=== PATIENT | male | born 1985 | race Caucasian/White ===

== ENCOUNTER 2019-08-21 11:52 | Emergency (ER) | payer SELFPAY ==
[2019-08-21 11:54] VITALS: BP 156/100; PULSE 110; RESP 17; TEMP 37.1; O2SAT 99; BMI 38.3
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
[2019-08-21 12:07] VITALS: BP 156/100; PULSE 110; RESP 16; O2SAT 99
[2019-08-21] MEDS: Doxycycline 100 MG CAPSULE PO (12:25)
== END 2019-08-21 12:26 | disposition home or self-care (01) ==
LOC: ED 12:15
PROVIDERS: Emergency Provider Emergency Medicine; PCP Family Medicine
DX: L03.211 Cellulitis of face (principal); E11.8 Type 2 diabetes mellitus with unspecified complications; I10 Essential (primary) hypertension; E78.5 Hyperlipidemia, unspecified; K21.9 Gastro-esophageal reflux disease without esophagitis; Z79.4 Long term (current) use of insulin; Z79.899 Other long term (current) drug therapy; E66.01 Morbid (severe) obesity due to excess calories; Z68.41 Body mass index [BMI] 40.0-44.9, adult; Z87.891 Personal history of nicotine dependence
CPT/HCPCS: 99283

== ENCOUNTER 2020-05-25 07:54 | Emergency (ER) | payer SELFPAY ==
[2020-05-25 07:55] VITALS: BP 178/98; PULSE 86; RESP 16; TEMP 36.4; O2SAT 99; BMI 39.3
--- NOTE | 2020-05-25 08:19 | ED.DCSUM_ITS ---
- ER Visit Summary Date of Service: 05/25/20 Chief Complaint: Pain and swelling in the left second toe History of Present Illness: The patient is a 35 M who presents with pain and swelling in his left second toe that has been getting worse over the past 3 days. Patient is diabetic and has a history of neuropathy. Patient states he noted some redness over the second toe as well. Patient denies any fevers or chills. Patient admits to some numbness but states this is chronic due to his neuropathy. Patient states his pain is worse with prolonged standing. Patient denies any fevers or chills. Patient denies any discharge or drainage. Patient states he has been cleaning it and covering it with a Band-Aid and Neosporin ointment. Physical Examination: Vital signs are stable. Patient is afebrile. Patient is in no acute distress. Skin is warm and dry. There is a ulceration over the dorsal aspect of the middle phalanx of the left second toe. There is no discharge or drainage. There is no fluctuance. There is no abscess formation. There is erythema of the toe. There is good range of motion. Capillary refill was less than 2 seconds in all digits. There is good pedal pulse noted. Sensation was diminished to light touch in all digits but this is chronic for the patient. Test Results: X-rays of the left foot were obtained. On my interpretation, there is no evidence of osteomyelitis or acute fracture or dislocation. Radiologist also interpreted the x-ray and agrees. Emergency Department Course and Treatment: Patient was given a dose of Keflex here. Patient was given a prescription for Keflex. Patient was instructed to keep the wound clean and dry. Patient was instructed to continue using antibiotic ointment. Patient was instructed to follow-up with his primary care physician in 3 to 5 days. Patient understood and was agreeable with the plan. All questions were answered. Disposition: Discharge home Impression: Cellulitis left second toe This note was generated with [employer] dictation software. It may contain incorrect words, spelling, and punctuation that were not noted in review of the chart prior to signing ED Disposition - Plan for ED Patient: Disposition: Home or Assisted Living Diagnosis: Cellulitis of second toe of left foot Instructions: ED Cellulitis Prescriptions: Cephalexin [Keflex] 500 mg PO Q6 #40 cap Prescription Printed Referrals: Zully,Kali, DO [Primary Care Provider] - 3-5 Days
--- NOTE | 2020-05-25 08:28 | RAD_ITS ---
STUDY: X-RAY - LEFT FOOT CLINICAL: Male, 35 years old. LEFT 2ND TOE PAIN. OPEN SORE TOP OF 2ND DIGIT WITH REDNESS AND SWELLING, DOES RADIATE INTO FOOT A LITTLE. NO KNOWN INJURY. HX OF DM2 PER PATIENT. TECHNIQUE: 3 view(s) of the foot. COMPARISON: None. FINDINGS: Normal talus, calcaneus, and tarsal bones. Normal visualized subtalar, talonavicular, calcaneocuboid, tarsal and tarsometatarsal articulations. Normal metatarsi. Normal metatarsophalangeal joint of the great toe. Normal tibial and fibular sesamoid bones. Normal interphalangeal joint of the great toe. Normal proximal phalanx of the great toe there is contour irregularity of the distal phalanx of the great toe suggesting either previous healed fracture or inflammation Normal second through fifth metatarsophalangeal joints. Normal interphalangeal joints and phalanges of the lesser toes. The soft tissue structures are unremarkable. RAD/Foot min 3 Views IMPRESSION: No acute fracture or suspicious osseous lesion. No subcutaneous emphysema Subtle irregularity in the distal phalanx of the great toe suggests either previous healed fracture or previous inflammatory process Electronically Signed: Estrada Hagan MD at 8:51 EST , Service support ,
[2020-05-25] MEDS: Cephalexin 250 MG Capsule 500 MG PO (08:43)
[2020-05-25 09:30] VITALS: PULSE 84; RESP 17; O2SAT 98
== END 2020-05-25 09:31 | disposition home or self-care (01) ==
PROVIDERS: Emergency Provider Emergency Medicine; PCP Family Medicine
DX: L03.032 Cellulitis of left toe (principal); E11.40 Type 2 diabetes mellitus with diabetic neuropathy, unspecified; I10 Essential (primary) hypertension; K21.9 Gastro-esophageal reflux disease without esophagitis; F32.9 Major depressive disorder, single episode, unspecified; F17.220 Nicotine dependence, chewing tobacco, uncomplicated
CPT/HCPCS: 73630; 99282

== ENCOUNTER 2020-06-09 11:15 | Emergency (ER) | payer SELFPAY ==
[2020-06-09 11:15] VITALS: BP 196/109; PULSE 93; RESP 16; TEMP 36.2; O2SAT 99; BMI 39.9
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
[2020-06-09] MEDS: Amox/Clavulanate 875 MG Tablet PO (11:54)
== END 2020-06-09 12:15 | disposition home or self-care (01) ==
LOC: ED 12:10
PROVIDERS: Emergency Provider Emergency Medicine; PCP Family Medicine
DX: E11.628 Type 2 diabetes mellitus with other skin complications (principal); L08.9 Local infection of the skin and subcutaneous tissue, unspecified; E11.621 Type 2 diabetes mellitus with foot ulcer; L97.529 Non-pressure chronic ulcer of other part of left foot with unspecified severity; Z79.4 Long term (current) use of insulin; Z87.891 Personal history of nicotine dependence
CPT/HCPCS: 99282

== ENCOUNTER 2020-06-25 10:30 | Outpatient (RCR) | payer SELFPAY ==
[2020-06-11 08:18] VITALS: BP 189/100; PULSE 81; RESP 16; TEMP 36.6; BMI 39.5
[2020-06-11 09:16] VITALS: BP 179/80
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
--- NOTE | 2020-06-18 | BON_PTH ---
PATIENT: GISELA HERNANDEZ Jr. LOC: U#:[id number] AGE/SX: 35/M ROOM: RE06/25/[address]: Dr. Nica Kaur DPM : 1985 BED: DIS: 07/04/2020 SPEC #: [id number] RECD: 06/18/20 13:17 STATUS: TERESA REQ #: [id number] ALON: 06/18/20 00:[address]: Nica Kaur DEPT: SURGICAL PATHOLOGY RECD BY: Cameron Rangel ENTERED: 06/18/20 13:18 SP TYPE: Bone OTHR DR: DO Dr. Alec Marcus MD Tissues: Bone of foot, NOS Procedures: Decalcification bone/plaque Surgery Specimen Level IV HEADER OPERATION: Bone debridement with biopsy PRE-OP DIAGNOSIS: Chronic diabetic ulceration into bone; Bone soft, likely osteomyelitis TISSUE SUBMITTED: Left second phalanx bone proximal and middle MICROSCOPIC DIAGNOSIS Second toe bone, biopsy: Acute osteomyelitis. AM:andrés 06/20/20 MICROSCOPIC DESCRIPTION Slides are reviewed. GROSS DESCRIPTION Received in fixative is one container labeled with the patient's name and designated second toe bone. The specimen consists of two fragments of bone that in aggregate measure 1 x 0.5 x 0.3 cm. The specimen is totally submitted in one cassette after decalcification. / SJ:andrés 06/18/20 TC:2 CPT: 60408, 72101
[2020-06-18 10:08] VITALS: BP 165/105; PULSE 94; RESP 16; TEMP 36.5; BMI 39.5
--- NOTE | 2020-06-19 21:20 | PN.PCM_ITS ---
(1) Ulcer of toe of left foot Status: Acute Qualifiers: Non-pressure ulcer stage: with necrosis of bone Qualified Code(s): L97.524 - Non-pressure chronic ulcer of other part of left foot with necrosis of bone Code(s): L97.529 - Non-pressure chronic ulcer of other part of left foot with unspecified severity (2) DM (diabetes mellitus), type 2 with complications Status: Chronic Code(s): E11.8 - Type 2 diabetes mellitus with unspecified complications (3) Morbid obesity with BMI of 40.0-44.9, adult Status: Chronic Code(s): E66.01 - Morbid (severe) obesity due to excess calories; Z68.41 - Body mass index [BMI]40.0-44.9, adult Comment: He has lost 120 lbs....he used to be over 400 lbs (4) Cellulitis of toe of left foot Status: Acute Code(s): L03.032 - Cellulitis of left toe Type of Wound Date of Service: 06/19/20 Chief Complaint: Left second toe wound. Cellulitis History of Wound: Patient relates previous ulceration to left hallux that required surgery. He currently has ulceration noted to plantar and dorsal left 2nd digit with edema and erythema of the digit of about a month duration. He has been on antibiotics for the wound including keflex and he is currently taking augmentin. Cultrues from last visit showed resistance to Keflex. Patient still taking augmentin. He relates clear to white drainage from the wound requiring twice a day dressing change. He has only been to the ED for this as he is currently without health insurance. Progress of Wound: worsening Subjective: Patient seen and examined. Patient relates the redness on his 2nd toe has gone down, but has noticed that the toe has become floppy this week. Patient denies N/F/V/C/CP/SOB/streaking/purulence - Physical Exam Vital Signs Temp Pulse Resp BP 97.7 F L 94 16 165/105 H 06/18/20 10:08 06/18/20 10:08 06/18/20 10:08 06/18/20 10:08 General: Alert, Oriented x3 HEENT: Atraumatic Extremities: No clubbing, No cyanosis, Capillary Refill Less than 3 Seconds, No Calf Tenderness, Edema, Peripheral Pulses Normal Skin: Ulcer/ Wound - left 2nd toe plantar ulceration has healed. Dorsal left 2nd toe ulcer has worsened with pathologic fracture to the proximal phalanx noted at the level of the neck. There is less fibrotic tissue present today. The extensor tendon has deteriorated. No purulence. Bone noted to be soft. No malodor., - - erythema improved, edema noted to 2nd toe. Surrounding callus noted dorsal and plantar toe. No streaking. Wound Measurements and Assessment WC - Nurse 1 - General Ulcer Measurement Start: 06/11/20 07:52 Freq: Status: Active Protocol: Activity Type Activity Date Activity User E-Sign Co-Sign Detail Recorded Client Recorded Date Recorded By Document 06/18/20 10:08 BMF [id number] 06/18/20 10:15 BMF 06/18/20 10:08 Wound Center Nurse 1 [Ulcer Assessment] #2- BASE OF L 2ND TOE PLANTAR -Combined with other wound No -Current Size (cm) - Length 0.1 -Current Size (cm) - Width 0.1 -Current Size (cm) - Depth 0.1 -Total Square Cm 0.01 -Epithelialization Large 67-100% #1- L 2ND TOE DORSAL -Combined with other wound No -Current Size (cm) - Length 1.1 -Current Size (cm) - Width 1.4 -Current Size (cm) - Depth 0.3 -Total Square Cm 1.54 -Photo Taken No -Epithelialization Small 1-33% -Tunneling No -Undermining/Tunneling Yes -Undermining/Tunneling Starts (O' 12 clock) -Undermining/Tunneling Ends (O'clock) 12 -Maximum Distance (cm) 0.3 -Circular Undermining Yes -Exudate Amt Small -Exudate Type Serosanguineous -Wound Margin Distinct, Outline Attached -Granulation Amt None Present (0 %) -Slough/Fibrin Yes -Necrosis Amt Large (67-100%) -Necrotic Tissue Type Adherent Slough -Texture (Bev-wound Skin Appearance) Assessed, Localized Edema ,Scarring -Moisture (Bev-wound Skin Appearance Assessed, ) Maceration -Color (Bev-wound Skin Appearance) Assessed, Erythema,Palor -Temperature (Bev-wound Skin No Abnormality Appearance) (Pt Warm) -Tenderness on Palpation (Bev-wound No Skin Appearance) -Ulcer Cleansing Rinsed/ Irrigated with Saline -Foul Odor after Cleansing No -Anesthetic Used 5% Lidocaine Gel WC - Nurse 2 - General Ulcer CM Notes Start: 06/11/20 07:52 Freq: Status: Active Protocol: Activity Type Activity Date Activity User E-Sign Co-Sign Detail Recorded Client Recorded Date Recorded By Document 06/18/20 10:36 HELIO [id number] 06/18/20 10:55 HELIO 06/18/20 10:36 Wound Center Nurse 2 [Procedure/Treatment] #2- BASE OF L 2ND TOE PLANTAR -Correct Patient No -Correct Side, Site, Position No -Correct Procedure No -Procedure Performed No -Post Debridement (cm) - Length 0 -Post Debridement (cm) - Width 0 -Post Debridement (cm) - Depth 0 -Total Square (Post) (cm) 0 -Area of Debridement (cm) - Length 0 -Area of Debridement (cm) - Width 0 -Total Square (Area) (cm) 0 -Wound/Ulcer Outcome Healed- Epithelialized #1- L 2ND TOE DORSAL -Correct Patient Yes -Correct Side, Site, Position Yes -Correct Procedure Yes -Procedure Performed Yes -Type of Procedure Debridement -Clinical Debridement Bone -Tissue Removed Tendon -Post Debridement (cm) - Length 0.9 -Post Debridement (cm) - Width 1 -Post Debridement (cm) - Depth 1 -Total Square (Post) (cm) 0.9 -Area of Debridement (cm) - Length 0.9 -Area of Debridement (cm) - Width 1 -Total Square (Area) (cm) 0.9 -Tunneling No -Undermining/Tunneling No -Circular Undermining No -Wound/Ulcer Outcome Not Healed -Ulcer Cleansing Rinsed/ Irrigated with Saline -Foul Odor after Cleansing No -Bioengineered Tissue No -Bleeding Controlled with Pressure -Offloading No -Treatment Response Procedure Tolerated Well -Debridement - Bone, 1st 20sq cm Yes [See Physician Procedure note for Specifics] Pain Scale: 0-10 Numeric [Pain] -Is Patient Pain Free? Yes Musculoskeletal: No Tenderness to Palpation of Joints or Extremities Neurological: - - decrease in light touch sensation Psych/Mental Status: Normal Affect, Appropriate, Alert and oriented to time, place, person, mood and affect Debridement Note Post-Debridement Measurements/Treatment WC - Nurse 2 - General Ulcer CM Notes Start: 06/11/20 07:52 Freq: Status: Active Protocol: Activity Type Activity Date Activity User E-Sign Co-Sign Detail Recorded Client Recorded Date Recorded By Document 06/11/20 08:52 JF [id number] 06/11/20 09:08 Document 06/18/20 10:36 [email or web address] [id number] 06/18/20 10:55 06/11/20 06/18/20 08:52 10:36 Wound Center Nurse 2 #2- BASE OF L 2ND TOE PLANTAR -Time 08:52 -Correct Patient Yes No -Correct Side, Site, Position Yes No -Correct Procedure Yes No -Procedure Performed Yes No -Type of Procedure Debridement -Clinical Debridement Subcutaneous -Tissue Removed Subcutaneous -Post Debridement (cm) - Length 0.2 0 -Post Debridement (cm) - Width 1.4 0 -Post Debridement (cm) - Depth 0.2 0 -Total Square (Post) (cm) 0.28 0 -Area of Debridement (cm) - Length 0.2 0 -Area of Debridement (cm) - Width 1.4 0 -Total Square (Area) (cm) 0.28 0 -Tunneling No -Undermining/Tunneling No -Circular Undermining No -Wound/Ulcer Outcome Not Healed Healed- Epithelialized -Ulcer Cleansing Rinsed/ Irrigated with Saline -Foul Odor after Cleansing No -Bioengineered Tissue No -Bleeding Controlled with Pressure -Offloading No -Debridement - Subq, 1st 20sq cm Yes #1- L 2ND TOE DORSAL -Time 08:54 -Correct Patient Yes Yes -Correct Side, Site, Position Yes Yes -Correct Procedure Yes Yes -Procedure Performed Yes Yes -Type of Procedure Debridement Debridement -Clinical Debridement Muscle / Fascia Bone -Tissue Removed Tendon Tendon -Post Debridement (cm) - Length 0.5 0.9 -Post Debridement (cm) - Width 1 1 -Post Debridement (cm) - Depth 0.5 1 -Total Square (Post) (cm) 0.5 0.9 -Area of Debridement (cm) - Length 0.5 0.9 -Area of Debridement (cm) - Width 1 1 -Total Square (Area) (cm) 0.5 0.9 -Tunneling No No -Undermining/Tunneling No No -Circular Undermining No No -Wound/Ulcer Outcome Not Healed Not Healed -Ulcer Cleansing Rinsed/ Rinsed/ Irrigated with Irrigated with Saline Saline -Foul Odor after Cleansing No No -Bioengineered Tissue No No -Bleeding Controlled with Pressure Pressure -Offloading No No -Treatment Response Procedure Procedure Tolerated Well Tolerated Well -Debridement - Muscle / Fascia, 1st Yes 20sq cm -Debridement - Bone, 1st 20sq cm Yes Pain Scale: 0-10 Numeric Is Patient Pain Free? Yes Yes - Nurse 3 - General Ulcer D/C NN Start: 06/11/20 07:52 Freq: Status: Active Protocol: Activity Type Activity Date Activity User E-Sign Co-Sign Detail Recorded Client Recorded Date Recorded By Document 06/11/20 09:16 [id number] 06/11/20 09:26 DL 06/11/20 09:16 Wound Care Nurse 3 #2- BASE OF L 2ND TOE PLANTAR -Ulcer Cleansing Rinsed/ Irrigated with Saline -Foul Odor after Cleansing No -Other Dressing moist saline -Primary Dressing Covered/Secured with Dry Gauze & Roll Gauze, Secured with Tape #1- L 2ND TOE DORSAL -Ulcer Cleansing Rinsed/ Irrigated with Saline -Foul Odor after Cleansing No -Other Dressing moist saline -Primary Dressing Covered/Secured with Dry Gauze & Roll Gauze, Secured with Tape Treatment Response Procedure Tolerated Well Vital Signs Blood Pressure (90/60-120/80) 179/80 H Blood Pressure Mean (mm Hg) 113 Source Monitor Pain Scale: 0-10 Numeric Is Patient Pain Free? Yes WC - Visit Discharge Discharge Condition Stable Ambulatory Status Ambulatory Transportation Private Auto Notes: Pt to start Dakins when available. Wound debrided: dorsal 2nd toe Laterality: Left Wound Grade/Stage: blank 3 Type of Debridement: Excisional debridement Anesthesia Used: 4% Lidocaine Solution Depth: to bone Percentage of wound debrided: 100 Instrument Used: #15 blade Tissue Removed: sough, fibrotic, devitalized, biofilm tissue and bone Severity: Necrosis of Bone Amount of bleeding with debridement: Mild Bleeding Controlled with: Pressure Patient tolerated procedure well pathologic fracture noted to neck of proximal phalanx of 2nd digit. Head of phalanx was removed and sent to the lab as specimen Assessment/Plan Active Problems (Last Updated 06/18/20 @ 09:[address] Nica Kaur, DPElvira) DM (diabetes mellitus), type 2 with complications (Chronic) Morbid obesity with BMI of 40.0-44.9, adult (Chronic) He has lost 120 lbs....he used to be over 400 lbs Ulcer of toe of left foot (Acute) Cellulitis of toe of left foot (Acute) Assessment: left 2nd digit osteomyelitis. left 2nd digit cellultis. left 2nd digit dorsal ulceration into bone Plan: Patient seen and examined. Patient noted to have left second digit dorsal ulceration which has worsened with deth to bone and a pathologiv bone fracture noted. Plantar left 2nd digt ulceration has healed. Patient cultures from last visit were noted to be polymicrobial with good sensitivity to augmentin. He is still taking the Augmentin. Patient encouraged to continue. The head of the proxmial phalanx was removed at the level of the pathologic neck fracture and was sent to microbiology and pathology as specimen. We will adjust the antibiotics depending on culture results. dorsal ulceration to the left second digit were sharply debrided This was tolerated due to patient neuropathy as well as lidocaine gel application. Removal of all devitalized tissue was performed. Patient tolerated procedure without issue. Discussed with the patient at length that it is very likely that the bone is infected and is likely the reason he fractured his toe. Discussed various treatment options including IV antibiotics, wound care and surgical amputation. All risks, benefits, alternatives, and complications were discussed with the patient. ALl questions were answered. Reneeetn would like to take the week to think on it. Will follow bone cultures. WIll revisit OM treatment options. 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 Patient is currently on a work excuse to allow wound to heal but patient is eager to get back to work. He has work shoes that were given to him by another chuck splitter that her diabetic work boots that are about 2 years old. Patient wishes to wait until his insurance starts to look into getting new shoes. Discussed the importance of offloading the ulcer site to allow healing. Discussed proper shoe gear. Also discussed the importance of proper nutrition for healing and as well as blood glucose control. Patient is currently uninsured and for approximately the next 30 days and is not interested in pursuing other specialist work-up until his insurance kicks in. Nor is he interested in exploring new diabetic work shoes until the insurance is active. Patient's girlfriend is a database software technician. Discussed since he does not have insurance that he might want to talk with her about guidance in his diet to better control his diabetes. He states that he is currently in the 200s most days for his blood glucose. We will revisit these other options once he has insurance. Patient instructed to finish course of Augmentin. Patient is to continue daily dressing changes or more frequently if dressing is saturated with Dakin's wet to dry. Proper application of this dressing was reviewed with the patient in the office. Educated patient on concerning signs and symptoms including nausea fever vomiting chills chest pain shortness of breath and if seen patient is to contact the office or go to the emergency room. Patient is to follow-up in 1 week
[2020-06-25 09:44] VITALS: BP 169/99; PULSE 79; RESP 20; TEMP 36.6; BMI 39.5
--- NOTE | 2020-06-26 12:05 | PN.PCM_ITS ---
(1) Ulcer of toe of left foot Status: Acute Qualifiers: Non-pressure ulcer stage: with necrosis of bone Qualified Code(s): L97.524 - Non-pressure chronic ulcer of other part of left foot with necrosis of bone Code(s): L97.529 - Non-pressure chronic ulcer of other part of left foot with unspecified severity (2) DM (diabetes mellitus), type 2 with complications Status: Chronic Code(s): E11.8 - Type 2 diabetes mellitus with unspecified complications (3) Morbid obesity with BMI of 40.0-44.9, adult Status: Chronic Code(s): E66.01 - Morbid (severe) obesity due to excess calories; Z68.41 - Body mass index [BMI]40.0-44.9, adult Comment: He has lost 120 lbs....he used to be over 400 lbs (4) Cellulitis of toe of left foot Status: Acute Code(s): L03.032 - Cellulitis of left toe Type of Wound Date of Service: 06/25/20 Chief Complaint: Left second toe wound. Cellulitis History of Wound: Patient relates previous ulceration to left hallux that required surgery. He currently has ulceration noted to dorsal left 2nd digit with edema and erythema of the digit of about a month duration. He has healed the plantar 2nd left toe ulcer. He has been on antibiotics for the wound including keflex and augmentin. He is currently taking clindamycin and ciprofloxacin after confirmation of bone infection. Results were called to patient and prescription was sent to patient's pharmacy. Cultrues from 06/11/20 showed resistance to Keflex. A pathologic fracture of the 2nd left toe was noted and fractured fragment including the head of the proximal phalanx was removed and sent to the lab. Bone cultre from 06/18/20 showed citrobacter and actinomyces. He relates decrease in drainage from the wound as well as decrease in swelling and redness. He has only been to the ED for this as he is currently without health insurance. Patient is aware of of treatment options including IV antibiotics, amputation, wound care. As patient is currently without health insurance for another couple of weeks he would like to try an oral antibiotic. Patient is aware of concerning symptoms and if these present to contact clinic or go to ED. He is aware that this may not completely get rid of his infection. Discussed need to get rid of infection for healling to progress. Progress of Wound: stable Subjective: Patient seen and examined. Patient relates less swelling and redness to his toe. He relates no issues in getting his antibiotics. He denies N/F/V/C/CP/SOB/streaking/purulence - Physical Exam Vital Signs Temp Pulse Resp BP 97.9 F 79 20 H 169/99 H 06/25/20 09:44 06/25/20 09:44 06/25/20 09:44 06/25/20 09:44 General: Alert, Oriented x3 HEENT: Atraumatic Abdomen: Obese Extremities: No clubbing, No cyanosis, Capillary Refill Less than 3 Seconds, No Calf Tenderness, Diminished Peripheral Pulses, Edema Skin: Ulcer/ Wound - left 2nd toe dorsal ulcer, no longer probes to bone, less erythema and edema from last visit, fibrotic tissue still present Wound Measurements and Assessment WC - Nurse 1 - General Ulcer Measurement Start: 06/11/20 07:52 Freq: Status: Active Protocol: Activity Type Activity Date Activity User E-Sign Co-Sign Detail Recorded Client Recorded Date Recorded By Document 06/25/20 09:44 DL [id number] 06/25/20 09:50 DL 06/25/20 09:44 Wound Center Nurse 1 [Ulcer Assessment] #1- L 2ND TOE DORSAL -Current Size (cm) - Length 0.7 -Current Size (cm) - Width 1.5 -Current Size (cm) - Depth 0.5 -Total Square Cm 1.05 -Photo Taken No -Undermining/Tunneling Starts (O' 1 clock) -Undermining/Tunneling Ends (O'clock) 5 -Maximum Distance (cm) 0.5 -Exudate Amt Small -Exudate Type Serosanguineous -Wound Margin Distinct, Outline Attached -Granulation Amt Small (1-33%) -Granulation Quality Red -Necrosis Amt Small (1-33%) -Necrotic Tissue Type Adherent Slough -Structure Exposed N/A -Texture (Bev-wound Skin Appearance) Localized Edema ,Scarring -Moisture (Bev-wound Skin Appearance Maceration ) -Color (Bev-wound Skin Appearance) Erythema,Rubor -Temperature (Bev-wound Skin No Abnormality Appearance) (Pt Warm) -Tenderness on Palpation (Bev-wound No Skin Appearance) -Ulcer Cleansing Rinsed/ Irrigated with Saline -Foul Odor after Cleansing No -Anesthetic Used 4% Lidocaine Solution - Nurse 2 - General Ulcer CM Notes Start: 06/11/20 07:52 Freq: Status: Active Protocol: Activity Type Activity Date Activity User E-Sign Co-Sign Detail Recorded Client Recorded Date Recorded By Document 06/25/20 10:13 HELIO [id number] 06/25/20 10:16 HELIO 06/25/20 10:13 Wound Center Nurse 2 [Procedure/Treatment] -Time 10:13 -Correct Patient Yes -Correct Side, Site, Position Yes -Correct Procedure Yes -Procedure Performed Yes -Type of Procedure Debridement -Clinical Debridement Subcutaneous -Tissue Removed Subcutaneous -Post Debridement (cm) - Length 1.5 -Post Debridement (cm) - Width 0.6 -Post Debridement (cm) - Depth 0.6 -Total Square (Post) (cm) 0.90 -Area of Debridement (cm) - Length 1.5 -Area of Debridement (cm) - Width 0.6 -Total Square (Area) (cm) 0.90 -Tunneling No -Undermining/Tunneling No -Circular Undermining No -Wound/Ulcer Outcome Not Healed -Ulcer Cleansing Rinsed/ Irrigated with Saline -Foul Odor after Cleansing No -Bioengineered Tissue No -Bleeding Controlled with Pressure -Offloading No -Treatment Response Procedure Tolerated Well -Debridement - Subq, 1st 20sq cm Yes [See Physician Procedure note for Specifics] Pain Scale: 0-10 Numeric [Pain] -Is Patient Pain Free? Yes - Nurse 3 - General Ulcer D/C NN Start: 06/11/20 07:52 Freq: Status: Active Protocol: Activity Type Activity Date Activity User E-Sign Co-Sign Detail Recorded Client Recorded Date Recorded By Document 06/25/20 10:33 [id number] 06/25/20 10:33 06/25/20 10:33 Wound Care Nurse 3 [Wound Dressing] #1- L 2ND TOE DORSAL -Ulcer Cleansing Rinsed/ Irrigated with Saline -Foul Odor after Cleansing No -Primary Dressing Applied C Hydrogel ($) -Primary Dressing Covered/Secured Dry Gauze, with Secured with Tape Pain Scale: 0-10 Numeric [Pain] -Is Patient Pain Free? Yes - Visit Discharge [Visit Discharge Information] -Discharge Condition Stable -Ambulatory Status Ambulatory -Transportation Private Auto -Medication Reconcilliation completed Yes & provided to patient/care provider -Clinical Summary of Care Provided Yes Musculoskeletal: No Tenderness to Palpation of Joints or Extremities, - - left 2nd digit is slightly dorsiflexed Neurological: - - epicritic sensation loss Psych/Mental Status: Normal Affect, Appropriate, Alert and oriented to time, place, person, mood and affect Debridement Note Post-Debridement Measurements/Treatment WC - Nurse 2 - General Ulcer CM Notes Start: 06/11/20 07:52 Freq: Status: Active Protocol: Activity Type Activity Date Activity User E-Sign Co-Sign Detail Recorded Client Recorded Date Recorded By Document 06/11/20 08:52 [id number] 06/11/20 09:08 Document 06/18/20 10:36 [id number] 06/18/20 10:55 Document 06/25/20 10:13 [id number] 06/25/20 10:16 06/11/20 06/18/20 06/25/20 08:52 10:36 10:13 Wound Center Nurse 2 #2- BASE OF L 2ND TOE PLANTAR -Time 08:52 -Correct Patient Yes No -Correct Side, Site, Position Yes No -Correct Procedure Yes No -Procedure Performed Yes No -Type of Procedure Debridement -Clinical Debridement Subcutaneous -Tissue Removed Subcutaneous -Post Debridement (cm) - Length 0.2 0 -Post Debridement (cm) - Width 1.4 0 -Post Debridement (cm) - Depth 0.2 0 -Total Square (Post) (cm) 0.28 0 -Area of Debridement (cm) - Length 0.2 0 -Area of Debridement (cm) - Width 1.4 0 -Total Square (Area) (cm) 0.28 0 -Tunneling No -Undermining/Tunneling No -Circular Undermining No -Wound/Ulcer Outcome Not Healed Healed- Epithelialized -Ulcer Cleansing Rinsed/ Irrigated with Saline -Foul Odor after Cleansing No -Bioengineered Tissue No -Bleeding Controlled with Pressure -Offloading No -Debridement - Subq, 1st 20sq cm Yes #1- L 2ND TOE DORSAL -Time 08:54 10:13 -Correct Patient Yes Yes Yes -Correct Side, Site, Position Yes Yes Yes -Correct Procedure Yes Yes Yes -Procedure Performed Yes Yes Yes -Type of Procedure Debridement Debridement Debridement -Clinical Debridement Muscle / Fascia Bone Subcutaneous -Tissue Removed Tendon Tendon Subcutaneous -Post Debridement (cm) - Length 0.5 0.9 1.5 -Post Debridement (cm) - Width 1 1 0.6 -Post Debridement (cm) - Depth 0.5 1 0.6 -Total Square (Post) (cm) 0.5 0.9 0.90 -Area of Debridement (cm) - Length 0.5 0.9 1.5 -Area of Debridement (cm) - Width 1 1 0.6 -Total Square (Area) (cm) 0.5 0.9 0.90 -Tunneling No No No -Undermining/Tunneling No No No -Circular Undermining No No No -Wound/Ulcer Outcome Not Healed Not Healed Not Healed -Ulcer Cleansing Rinsed/ Rinsed/ Rinsed/ Irrigated with Irrigated with Irrigated with Saline Saline Saline -Foul Odor after Cleansing No No No -Bioengineered Tissue No No No -Bleeding Controlled with Pressure Pressure Pressure -Offloading No No No -Treatment Response Procedure Procedure Procedure Tolerated Well Tolerated Well Tolerated Well -Debridement - Subq, 1st 20sq cm Yes -Debridement - Muscle / Fascia, 1st Yes 20sq cm -Debridement - Bone, 1st 20sq cm Yes Pain Scale: 0-10 Numeric Is Patient Pain Free? Yes Yes Yes WC - Nurse 3 - General Ulcer D/C NN Start: 06/11/20 07:52 Freq: Status: Active Protocol: Activity Type Activity Date Activity User E-Sign Co-Sign Detail Recorded Client Recorded Date Recorded By Document 06/11/20 09:16 DL [id number] 06/11/20 09:26 DL Document 06/25/20 10:33 [id number] 06/25/20 10:33 06/11/20 06/25/20 09:16 10:33 Wound Care Nurse 3 #2- BASE OF L 2ND TOE PLANTAR -Ulcer Cleansing Rinsed/ Irrigated with Saline -Foul Odor after Cleansing No -Other Dressing moist saline -Primary Dressing Covered/Secured with Dry Gauze & Roll Gauze, Secured with Tape #1- L 2ND TOE DORSAL -Ulcer Cleansing Rinsed/ Rinsed/ Irrigated with Irrigated with Saline Saline -Foul Odor after Cleansing No No -Primary Dressing Applied C Hydrogel ($) -Other Dressing moist saline -Primary Dressing Covered/Secured with Dry Gauze & Dry Gauze, Roll Gauze, Secured with Secured with Tape Tape Treatment Response Procedure Tolerated Well Vital Signs Blood Pressure (90/60-120/80) 179/80 H Blood Pressure Mean (mm Hg) 113 Source Monitor Pain Scale: 0-10 Numeric Is Patient Pain Free? Yes Yes WC - Visit Discharge Discharge Condition Stable Stable Ambulatory Status Ambulatory Ambulatory Transportation Private Auto Private Auto Medication Reconcilliation completed & Yes provided to patient/care provider Clinical Summary of Care Provided Yes Notes: Pt to start Dakins when available. Wound debrided: 2nd toe dorsal Laterality: Left Wound Grade/Stage: blank 3 Type of Debridement: Excisional debridement Anesthesia Used: 4% Lidocaine Solution Depth: in the subcutaneous layer Percentage of wound debrided: 100 Instrument Used: 3mm curette Tissue Removed: slough, devitialized, fibrous tissue Severity: Fat Layer Exposed Amount of bleeding with debridement: Mild Bleeding Controlled with: Pressure Patient tolerated procedure well Assessment/Plan Active Problems (Last Updated 06/18/20 @ 09:[address] Nica Kaur, DP) DM (diabetes mellitus), type 2 with complications (Chronic) Morbid obesity with BMI of 40.0-44.9, adult (Chronic) He has lost 120 lbs....he used to be over 400 lbs Ulcer of toe of left foot (Acute) Cellulitis of toe of left foot (Acute) Assessment: left 2nd digit osteomyelitis. left 2nd digit cellultis, improved. left 2nd digit dorsal ulceration into bone Plan: Patient seen and examined. Patient noted to have left second digit dorsal ulceration which has stablized with depth to fat, erythema and edema, signs of infection improved. Plantar left 2nd digt ulceration has healed. Bone culture from 06/18/20 grew citrobacter and actinomyces. Patient was contacted and it was a decided that a prescription for cipro and clinda were sent to patient's pharmacy. On 06/18/20 the head of the proxmial phalanx was removed at the level of the pathologic neck fracture and was sent to microbiology and pathology as specimen. dorsal ulceration to the left second digit were sharply debrided This was tolerated due to patient neuropathy as well as lidocaine gel application. Patient tolerated procedure without issue. Discussed with the patient at length that the bone is infected and is likely the reason he fractured his toe. Discussed various treatment options including IV antibiotics, wound care and surgical amputation. All risks, benefits, alternatives, and complications were discussed with the patient. All questions were answered. This was also discussed during phone call to review bone culture results. As patient is currently without health insurance for several more weeks we will proceed with oral antibiotics. Patinet is aware that this may not be enough to get rid of the infection. Patient is aware that the goal is to keep wound from worsening. Patient is aware any remaining infection will negatively impact wound healing. Patient understood and agreeed to treatment plan and all questions were answered. 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 Patient is currently on a work excuse to allow wound to heal but patient is eager to get back to work. He has work shoes that were given to him by another flight test shop mechanic that her diabetic work boots that are about 2 years old. Patient wishes to wait until his insurance starts to look into getting new shoes. Discussed the importance of offloading the ulcer site to allow healing. Discussed proper shoe gear. Also discussed the importance of proper nutrition for healing and as well as blood glucose control. Patient is currently uninsured and for approximately the next 25 days and is not interested in pursuing other specialist work-up until his insurance kicks in. Nor is he interested in exploring new diabetic work shoes until the insurance is active. Patient's girlfriend is a science tutor. Discussed since he does not have insurance that he might want to talk with her about guidance in his diet to better control his diabetes. He states that he is currently in the 200s most days for his blood glucose. We will revisit these other options once he has insurance. Patient is to continue daily dressing changes or more frequently if dressing is saturated with Dakin's wet to dry. Proper application of this dressing was reviewed with the patient in the office. Educated patient on concerning signs and symptoms including nausea fever vomiting chills chest pain shortness of breath and if seen patient is to contact the office or go to the emergency room. Patient is to follow-up in 1-2 week
== END 2020-07-04 23:59 ==
LOC: WC 10:30
PROVIDERS: PCP Family Medicine; Referring Provider Emergency Medicine; Visit Provider Podiatrist Foot & Ankle Surgery
DX: E11.621 Type 2 diabetes mellitus with foot ulcer (principal); L97.522 Non-pressure chronic ulcer of other part of left foot with fat layer exposed; L97.524 Non-pressure chronic ulcer of other part of left foot with necrosis of bone; E11.69 Type 2 diabetes mellitus with other specified complication; M86.9 Osteomyelitis, unspecified; M84.475A Pathological fracture, left foot, initial encounter for fracture; L03.032 Cellulitis of left toe; R60.0 Localized edema; E11.40 Type 2 diabetes mellitus with diabetic neuropathy, unspecified; I10 Essential (primary) hypertension; E78.5 Hyperlipidemia, unspecified; K21.9 Gastro-esophageal reflux disease without esophagitis; E66.01 Morbid (severe) obesity due to excess calories; Z68.41 Body mass index [BMI] 40.0-44.9, adult; Z79.4 Long term (current) use of insulin; Z79.899 Other long term (current) drug therapy; Z87.891 Personal history of nicotine dependence
CPT/HCPCS: 11042; 11043; 11044; 87070; 87075; 87077; 87176; 87186; 87205; 88304; 88305; 88311; 99213; G0463

== ENCOUNTER 2020-07-09 10:00 | Outpatient (RCR) | payer SELFPAY ==
[2020-07-05 00:38] VITALS: BP 169/99; PULSE 79; RESP 20; TEMP 36.6
[2020-07-09 09:55] VITALS: BP 164/89; PULSE 84; RESP 20; TEMP 36.6; BMI 39.5
--- NOTE | 2020-07-09 11:05 | PN.PCM_ITS ---
(1) Osteomyelitis of toe of left foot Status: Acute Code(s): M86.9 - Osteomyelitis, unspecified (2) Obese Status: Chronic Code(s): E66.9 - Obesity, unspecified (3) DM (diabetes mellitus), type 2 with complications Status: Chronic Code(s): E11.8 - Type 2 diabetes mellitus with unspecified complications (4) Cellulitis of toe of left foot Status: Resolved Code(s): L03.032 - Cellulitis of left toe Type of Wound Date of Service: 07/09/20 Chief Complaint: Left second toe wound. Cellulitis-resolving. osteomyelitis left 2nd toe History of Wound: Patient relates previous ulceration to left hallux that required surgery. He presents to the wound care center with ulceration noted to dorsal and plantar left 2nd digit with edema and erythema of the digit of about a month duration. He has healed the plantar 2nd left toe ulcer. He has been on antibiotics for the wound including keflex and augmentin. He is currently taking clindamycin and ciprofloxacin after confirmation of bone infection. Results were called to patient and prescription was sent to patient's pharmacy. Cultures from 06/11/20 showed resistance to Keflex. A pathologic fracture of the 2nd left toe was noted and fractured fragment including the head of the proximal phalanx was removed and sent to the lab. Bone cultre from 06/18/20 showed citrobacter and actinomyces. He relates decrease in drainage from the wound as well as decrease in swelling and redness since removal of the infected bone. He has only been to the ED for this as he is currently without health insurance. Patient is aware of of treatment options including IV antibiotics, amputation, wound care. As patient is currently without health insurance for another couple of weeks he would like to try an oral antibiotic. Patient is aware of concerning symptoms and if these present to contact clinic or go to ED. He is aware that this may not completely get rid of his infection. Discussed need to get rid of infection for healling to progress. Patient currently taking clindam ycin and ciprofloxacin for treatment of underlying osteomyelitis. Progress of Wound: Improved with less depth no longer probes to bone decrease in erythema and edema to foot Subjective: Patient seen and examined bedside. Patient denies any new pedal complaints. Patient denies any nausea, fever, and chest pain, shortness of breath, chills, cough, streaking, purulence, vomiting. - Physical Exam Vital Signs Temp Pulse Resp BP 97.8 F 84 20 H 164/89 H 07/09/20 09:55 07/09/20 09:55 07/09/20 09:55 07/09/20 09:55 General: Alert, Oriented x3 HEENT: Atraumatic Abdomen: Obese Extremities: No clubbing, No cyanosis, Capillary Refill Less than 3 Seconds, No Calf Tenderness, Edema, Peripheral Pulses Normal Skin: Ulcer/ Wound - Dorsal second digit left foot. No malodor, erythema, purulence, probing to bone, streaking, or other signs of infection. Skin is atrophic and hairless. Granular base with serosanguineous drainage after debridement. Erythema and edema has resolved from the foot. Mild erythema and edema noted toe Wound Measurements and Assessment WC - Nurse 1 - General Ulcer Measurement Start: 07/09/20 09:53 Freq: Status: Active Protocol: Activity Type Activity Date Activity User E-Sign Co-Sign Detail Recorded Client Recorded Date Recorded By Document 07/09/20 09:55 DL [id number] 07/09/20 10:02 DL 07/09/20 09:55 Wound Center Nurse 1 [Ulcer Assessment] #1- L 2ND TOE DORSAL -Current Size (cm) - Length 0.7 -Current Size (cm) - Width 1 -Current Size (cm) - Depth 0.2 -Total Square Cm 0.7 -Photo Taken No -Exudate Amt Small -Exudate Type Serosanguineous -Wound Margin Distinct, Outline Attached -Granulation Amt Large (67-100%) -Granulation Quality Red -Necrosis Amt None Present (0 %) -Texture (Bev-wound Skin Appearance) Localized Edema ,Scarring -Color (Bev-wound Skin Appearance) Mottled,Rubor -Temperature (Bev-wound Skin No Abnormality Appearance) (Pt Warm) -Tenderness on Palpation (Bev-wound No Skin Appearance) -Foul Odor after Cleansing No -Anesthetic Used 4% Lidocaine Solution - Nurse 2 - General Ulcer CM Notes Start: 07/09/20 09:53 Freq: Status: Active Protocol: Activity Type Activity Date Activity User E-Sign Co-Sign Detail Recorded Client Recorded Date Recorded By Document 07/09/20 10:36 MW [id number] 07/09/20 10:46 MW 07/09/20 10:36 Wound Center Nurse 2 [Procedure/Treatment] -Time 10:36 -Correct Patient Yes -Correct Side, Site, Position Yes -Correct Procedure Yes -Procedure Performed Yes -Type of Procedure Debridement -Clinical Debridement Subcutaneous -Tissue Removed Subcutaneous -Post Debridement (cm) - Length 0.5 -Post Debridement (cm) - Width 1.5 -Post Debridement (cm) - Depth 0.1 -Total Square (Post) (cm) 0.75 -Area of Debridement (cm) - Length 0.5 -Area of Debridement (cm) - Width 1.5 -Total Square (Area) (cm) 0.75 -Tunneling No -Undermining/Tunneling No -Circular Undermining No -Wound/Ulcer Outcome Not Healed -Ulcer Cleansing Rinsed/ Irrigated with Saline -Foul Odor after Cleansing No -Bioengineered Tissue No -Bleeding Controlled with Pressure -Offloading No -Debridement - Subq, 1st 20sq cm Yes [See Physician Procedure note for Specifics] Pain Scale: 0-10 Numeric [Pain] -Is Patient Pain Free? Yes - Nurse 3 - General Ulcer D/C NN Start: 07/09/20 09:53 Freq: Status: Active Protocol: Activity Type Activity Date Activity User E-Sign Co-Sign Detail Recorded Client Recorded Date Recorded By Document 07/09/20 10:49 MW [id number] 07/09/20 10:50 MW 07/09/20 10:49 Wound Care Nurse 3 [Wound Dressing] #1- L 2ND TOE DORSAL -Ulcer Cleansing Rinsed/ Irrigated with Saline -Foul Odor after Cleansing No -Negative Pressure Wound Therapy N/A -Primary Dressing Applied Promogran Francia Matter -Primary Dressing Covered/Secured Dry Gauze with -Other Covering secured with coban -Promogran Francia Matter 1 [Post Procedure Tolerated] -Treatment Response Procedure Tolerated Well Pain Scale: 0-10 Numeric [Pain] -Is Patient Pain Free? Yes Teaching: Wound Center [Wound Center Education] (Items with an * have Printed Materials Available- Please identify what is given to patient under the Teaching materials given to patient and caregiver Section. Dressing Your Wound -Person Taught Patient -Teaching Method Discussion, Demonstration -Response to teaching Verbalize understanding WC - Visit Discharge [Visit Discharge Information] -Discharge Condition Stable -Ambulatory Status Ambulatory -Transportation Private Auto -Accompanied by self -Medication Reconcilliation completed No & provided to patient/care provider -Clinical Summary of Care Provided Yes Musculoskeletal: No Tenderness to Palpation of Joints or Extremities, - - Dorsal deviation of the left second digit noted with lateral translation of hallux. Left second toe is slightly unstable secondary to loss of extensor tendons and head of proximal phalanx secondary to infection Neurological: - - Lack of epicritic sensation consistent with neuropathy Debridement Note Post-Debridement Measurements/Treatment LARISSA - Nurse 2 - General Ulcer CM Notes Start: 07/09/20 09:53 Freq: Status: Active Protocol: Activity Type Activity Date Activity User E-Sign Co-Sign Detail Recorded Client Recorded Date Recorded By Document 07/09/20 10:36 MW [id number] 07/09/20 10:46 MW 07/09/20 10:36 Wound Center Nurse 2 #1- L 2ND TOE DORSAL -Time 10:36 -Correct Patient Yes -Correct Side, Site, Position Yes -Correct Procedure Yes -Procedure Performed Yes -Type of Procedure Debridement -Clinical Debridement Subcutaneous -Tissue Removed Subcutaneous -Post Debridement (cm) - Length 0.5 -Post Debridement (cm) - Width 1.5 -Post Debridement (cm) - Depth 0.1 -Total Square (Post) (cm) 0.75 -Area of Debridement (cm) - Length 0.5 -Area of Debridement (cm) - Width 1.5 -Total Square (Area) (cm) 0.75 -Tunneling No -Undermining/Tunneling No -Circular Undermining No -Wound/Ulcer Outcome Not Healed -Ulcer Cleansing Rinsed/ Irrigated with Saline -Foul Odor after Cleansing No -Bioengineered Tissue No -Bleeding Controlled with Pressure -Offloading No -Debridement - Subq, 1st 20sq cm Yes Pain Scale: 0-10 Numeric Is Patient Pain Free? Yes - Nurse 3 - General Ulcer D/C NN Start: 07/09/20 09:53 Freq: Status: Active Protocol: Activity Type Activity Date Activity User E-Sign Co-Sign Detail Recorded Client Recorded Date Recorded By Document 07/09/20 10:49 MW [id number] 07/09/20 10:50 MW 07/09/20 10:49 Wound Care Nurse 3 #1- L 2ND TOE DORSAL -Ulcer Cleansing Rinsed/ Irrigated with Saline -Foul Odor after Cleansing No -Negative Pressure Wound Therapy N/A -Primary Dressing Applied Promogran Francia Matter -Primary Dressing Covered/Secured with Dry Gauze -Other Covering secured with coban -Promogran Francia Matter 1 Treatment Response Procedure Tolerated Well Pain Scale: 0-10 Numeric Is Patient Pain Free? Yes Teaching: Wound Center Dressing Your Wound -Person Taught Patient -Teaching Method Discussion, Demonstration -Response to teaching Verbalize understanding WC - Visit Discharge Discharge Condition Stable Ambulatory Status Ambulatory Transportation Private Auto Accompanied by self Medication Reconcilliation completed & No provided to patient/care provider Clinical Summary of Care Provided Yes Wound debrided: Dorsal second digit Laterality: Left Wound Grade/Stage: Pride 3 Type of Debridement: Excisional debridement Anesthesia Used: 4% Lidocaine Solution Depth: in the subcutaneous layer Percentage of wound debrided: 100 Instrument Used: 3mm curette Tissue Removed: Tissue removed includes fibrous, devitalized, biofilm, and slough tissue Severity: Fat Layer Exposed Amount of bleeding with debridement: Mild Bleeding Controlled with: Pressure Patient tolerated procedure well Assessment/Plan Assessment: left 2nd digit osteomyelitis. left 2nd digit cellultis, improved. left 2nd digit dorsal ulceration. Diabetes with neuropathy Plan: Patient seen and examined. Patient noted to have left second digit dorsal ulceration which has stablized with depth subcutaneous tissue, erythema and edema, signs of infection improved. Plantar left 2nd digt ulceration has healed. On 06/18/20 the head of the proxmial phalanx was removed at the level of the pathologic neck fracture and was sent to microbiology and pathology as specimen. This was positive for osteomyelitis. Bone culture from 06/18/20 grew citrobacter and actinomyces. Patient was contacted and it was a decided that a prescription for cipro and clinda were sent to patient's pharmacy. A refill was sent today. dorsal ulceration to the left second digit were sharply debrided This was tolerated due to patient neuropathy as well as lidocaine gel application. Patient tolerated procedure without issue. Discussed with the patient at length that the bone is infected and is likely the reason he fractured his toe. Discussed various treatment options including IV antibio tics, wound care and surgical amputation. All risks, benefits, alternatives, and complications were discussed with the patient. All questions were answered. As patient is currently without health insurance for several more weeks we will proceed with oral antibiotics. Patinet is aware that this may not be enough to get rid of the infection. Patient is aware that the goal is to keep wound from worsening. Patient is aware any remaining infection will negatively impact wound healing. Patient understood and agreeed to treatment plan and all questions were answered. Wound is noted to have improved since last visit. With healthy granular base and no longer supposed to bone and tendon. 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 Patient is currently on a work excuse to allow wound to heal but patient is eager to get back to work. Patient relates that the clock to start his health insurance will not begin again until he is working. Patient relates that he has ordered new diabetic work boots to wear at work. Patient instructed how to bandage toe in order to allow the toe to sit in a more natural position so is unlikely to rub against top aspect of shoe. Patient can return to work and see how wound progresses. Discussed the importance of offloading the ulcer site to allow healing. Discussed proper shoe gear. Also discussed the importance of proper nutrition for healing and as well as blood glucose control. Patient is currently uninsured and is not interested in pursuing other specialist work-up until his insurance kicks in. Nor is he interested in exploring new diabetic work shoes until the insurance is active. Patient's girlfriend is a bell cleaner. Discussed since he does not have insurance that he might want to talk with her about guidance in his diet to better control his diabetes. He states that he is currently in the 200s most days for his blood glucose. We will revisit these other options once he has insurance. Patient is to continue daily dressing changes with Francia. Proper application of this dressing was reviewed with the patient in the office. Educated patient on concerning signs and symptoms including nausea fever vomiting chills chest pain shortness of breath and if seen patient is to contact the office or go to the emergency room. Patient is to follow-up in 1-2 week either in the wound care center or in the office depending on patient's work schedule
== END 2020-08-04 23:59 ==
LOC: WC 10:00
PROVIDERS: PCP Family Medicine; Referring Provider Emergency Medicine; Visit Provider Podiatrist Foot & Ankle Surgery
DX: E11.69 Type 2 diabetes mellitus with other specified complication (principal); M86.172 Other acute osteomyelitis, left ankle and foot; E11.621 Type 2 diabetes mellitus with foot ulcer; L97.522 Non-pressure chronic ulcer of other part of left foot with fat layer exposed; E11.40 Type 2 diabetes mellitus with diabetic neuropathy, unspecified; E66.9 Obesity, unspecified; Z79.4 Long term (current) use of insulin
CPT/HCPCS: 11042

== ENCOUNTER 2021-07-23 13:28 | Outpatient (CLI) | payer OTHER, SELFPAY | END 2021-07-23 23:59 | disposition short-term general hospital (02) | LOC: LABSPEC 13:31 | PROVIDERS: PCP Family Medicine; Visit Provider Family Medicine | DX: Z20.828 Contact with and (suspected) exposure to other viral communicable diseases (principal) | CPT/HCPCS: 87635; U0003; U0005 ==

== ENCOUNTER 2021-07-25 17:26 | Outpatient (CLI) | payer OTHER, SELFPAY | END 2021-07-25 23:59 | disposition short-term general hospital (02) | PROVIDERS: PCP Family Medicine; Visit Provider Family Medicine | DX: U07.1 COVID-19 (principal) | CPT/HCPCS: 87635; U0003; U0005 ==

== ENCOUNTER 2021-08-26 08:47 | Outpatient (RCR) | payer OTHER, SELFPAY ==
[2021-08-26 09:07] VITALS: BP 162/95; PULSE 88; RESP 22; TEMP 36.6; BMI 38.2
--- NOTE | 2021-08-26 10:17 | PCM.WC.HP ---
History of Present Illness Date of Service: 08/26/21 Chief Complaint: Left second toe wound Cellulitis-resolving osteomyelitis left 2nd toe Progress of Wound: This 36-year-old male patient was seen in the wound care center for a chronic left great toe ulceration with a history of type 2 diabetes with peripheral neuropathy and osteomyelitis of the same toe. Patient was following up with Dr. Nica Kaur until he stopped coming in. Patient notes that he has been putting off returning to the wound care center and has been working frequently and notes that his daily blood sugars approximately 200+. He denies any fever, chills, nausea, vomiting, chest pain, chest Pain Or Shortness of Breath at This Time. He Denies Any Attempt to Offload the Site at This Time. He notes he has been cleansing the site daily with Dakin's. He notes recent oral antibiotic treatment with Augmentin for his primary care physician. Patient has no other complaints. Past medical history includes type 2 diabetes with peripheral neuropathy and history of osteomyelitis, hyperlipidemia, hypertension, gastroparesis, depression, Chiari malformation, GERD, obesity Past surgical history: Left foot great toe arthroplasty secondary to osteomyelitis. 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 Saurav Rodriguez, DPM) Diabetes mellitus Home Medications amoxicillin-pot clavulanate 875 mg PO Q12H #20 tab 06/09/20 [Rx Last Taken Unknown] insulin NPH and regular human 50 - 70 unit SQ BID 06/11/20 [History Last Taken Unknown] Allergy/AdvReac Type Severity Reaction Status Date / Time No Known Allergies Allergy Verified 06/11/20 08:39 Social History Smoking Status: Former smoker ROS Constitutional Constitutional: Denies systems reviewed and no addt'l complaints, except as documented, as per HPI, anorexia, body ache(s), change in weight, chills, daytime sleepiness, difficulty sleeping, excessive sweating, fatigue, fever(s), frequent falls, headache(s), increased appetite, lethargy, malaise, night sweats, poor appetite, snoring, stops breathing during sleep, weakness, weight gain, weight loss or other Eyes Eyes: Denies systems reviewed and no addt'l complaints, except as documented, as per HPI, none, acute decrease in peripheral vision, blindness, blind spots, bloody eye, blurry vision, burning, change in eye color, change in vision, decreased night vision, diplopia, discharge from eye(s), discongugate gaze, double vision, dry eyes, erythema, excessive blinking, exophthalmos, eye pain, floaters, foreign body, halo effect, irritation, itchy eyes, loss of central vision, loss of peripheral vision, loss of vision, miosis, mydriasis, numbness, nystagmus, other visual disturbances, periorbital itching, photophobia, ptosis, puffy eyes, requires corrective lenses, seeing flashes, spots in vision, sunken eyes, tearing, tunnel vision or other ENT HEENT: Denies systems reviewed and no addt'l complaints, except as documented, as per HPI, none, abnormal hearing, bleeding gums, change in voice, dental pain, disequillibrium, dizziness, dry mouth, dysphagia, ear discharge, ear pain, epistaxis, facial pain, foreign body in nose, halitosis, headache(s), hearing loss, hoarseness, lip swelling, loss taste/smell, mouth lesions, mouth pain, mucositis, nasal congestion, nasal discharge, nasal obstruction, nasal trauma, neck mass, neck pain, nose pain, odynophagia, otalgia, post nasal drip, rhinorrhea, sinus pain, sinus pressure, sore throat, throat swelling, tinnitus, tongue swelling, vertigo or other Cardiovascular Cardiovascular: Denies systems reviewed and no addt'l complaints, except as documented, as per HPI, none, abdominal bloating, abdominal edema, abdominal pain, arrhythmia on telemetry, bluish discoloration of hand/feet, chest pain, chest pain at rest, chest pain with activity, claudication, clubbing, cold extremities, cyanosis, diaphoresis, dizziness, dyspnea, dyspnea at rest, dyspnea on exertion, easily tiring during activity, edema, erythema on extremities, fatigue, flutter in chest, hypertension, irregular heart rhythm, leg edema, leg ulcers, lightheadedness, nausea, numbness in extremities, orthopnea, orthostatic symptoms, pale john skin, palpitations, paroxysmal nocturnal dyspnea, pedal edema, periorbital swelling, pounding heartbeat, racing heartbeat, radiating jaw, neck or arm pain, rapid heart rate, slow heart rate, syncope, tachypnea, vomiting, weakness in extremities, weight gain or other Respiratory/Chest Respiratory/Chest: Denies systems reviewed and no addt'l complaints, except as documented, as per HPI, none, change in mental status, change in phlegm color, chest congestion, chest tightness, cough, difficulty clearing secretions, dry cough, dusky skin, dyspnea, dyspnea on exertion, excessive phlegm production, hemoptysis, hoarseness, inability to speak, mouth breathing, nail bed cyanosis, non-rest sleep EDS, pain on inspiration, pain with cough, pale skin, bev-oral cyanosis, portable oxygen @ home, productive cough, red skin, restlessness, shortness of breath at rest, shortness of breath with exertion, snoring, stridor, tachypnea, wheezing, witnessed apneas, breast mass, breast pain, breast skin changes, breast swelling, change in breast shape, nipple discharge or other Gastrointestinal Gastrointestinal: Denies systems reviewed and no addt'l complaints, except as documented, as per HPI, none, abdominal pain, anorexia, belching, bloating, change in bowel habits, change in stool character, chewing difficulty, coffee ground emesis, constipation, cramping, diarrhea, dry heaves, dyspepsia, dysphagia, early satiety, excessive flatus, fecal incontinence, heartburn, hematemesis, hematochezia, hemorrhoids, loose stools, melena, nausea, odynophagia, rectal bleeding, taste impaired, tenesmus, vomiting, weight changes or other Genitourinary Genitourinary: Denies systems reviewed and no addt'l complaints, except as documented, as per HPI, none, abdominal discomfort, anuria, burning urination, change in libido, change in urinary stream, contractions, difficulty urinating, difficulty with ejaculations, dribbling, dysuria, erectile dysfunction, external genitalia discoloration, movement, flank pain, genital bruising, genital lesions, genital pain, hematospermia, hematuria, itching, low back pain, nocturia, oliguria, painful ejaculations, penile discharge, penile swelling, polyuria, post void dribbling, scrotal pain, scrotal swelling, testicular mass, testicular swelling, undescended testicles, urinary frequency, urinary hesitancy, urinary incontinence, urinary urgency or other Musculoskeletal Musculoskeletal: Denies systems reviewed and no addt'l complaints, except as documented, as per HPI, none, abnormal gait, arthralgias, atrophy, back pain, deformity, difficulty walking, extremity pain, joint pain, joint stiffness, joint swelling, limited range of motion, loss of height, muscle cramps, muscle spasms, muscle weakness, myalgias, neck pain, numbness, radiating pain into limb, stiffness, tingling, tremors or other Integumentary Integumentary: Denies systems reviewed and no addt'l complaints, except as documented, as per HPI, none, acne, alopecia, bleeding lesions, change in hair, change in pigmentation, changing lesions, dry skin, erythema, furuncle, hirsutism, jaundice, lesions, nail changes, new lesions, non-healing lesions, photosensitivity, pruritus, rash, skin pain, skin ulcer, skin swelling, sores, striae, unusual bruising, wounds or other Neurologic Neurologic: Denies systems reviewed and no addt'l complaints, except as documented, as per HPI, none, abnormal gait, abnormal hearing, abnormal movements, abnormal speech, behavior changes, burning sensations, confusion, convulsions, disequilibrium, dizziness, focal weakness, frequent falls, headache(s), lack of coordination, loss of vision, memory loss, numbness, other visual disturbances, paresthesias, radicular pain, restless legs, seizure-like activity, seizures, sensory deficit, syncope, tingling, tremor(s), vertigo, weakness or other Psychiatric Psychiatric: Denies systems reviewed and no addt'l complaints, except as documented, as per HPI, none, abnormal sleep pattern, anhedonia, anxiety, auditory hallucinations, behavioral changes, change in appetite, change in libido, cognitive impairment, confusion, depression, difficulty concentrating, hallucinations, homicidal ideation, hopelessness, irritability, memory loss, mood swings, panic attacks, paranoia, suicidal ideation, suicidal thoughts, tactile hallucinations, visual hallucinations or other Vital Signs Vital Signs Vital Signs: 08/26/21 09:07 Temperature 97.8 F Temperature Source Temporal Pulse Rate 88 Respiratory Rate 22 H Blood Pressure 162/95 H Blood Pressure Mean 117 Blood Pressure Source Monitor Weight Weight: 131.696 kg Body Mass Index (BMI) 38.2 Physical Exam Narrative Patient is alert oriented to person place and time. He ambulates in regular shoe gear without assistance Vascular: Dorsalis pedis posterior tibial pulses palpable 2 out of 4 to bilateral lower extremity. Skin appears to be thin atrophic with diminished hair growth to the lesser digits. Capillary fill time is brisk at this time. Bilateral feet are warm to palpation. Neurologic: Light touch protective sensation diminished bilateral feet Dermatologic: Full-thickness ulceration noted to the plantar left hallux interphalangeal joint wound demonstrates significant hyperkeratosis to the periwound area granular wound base no deep probing. There is focal increase in warmth, edema and periwound erythema. No evidence of pain or purulent drainage at this time. No fluctuance or crepitus noted to palpation of the wound site and periwound areas. Musculoskeletal: There is noted to be diminished hallux interphalangeal joint and first metatarsophalangeal joint range of motion to the left foot likely contributing to the patient's wound formation. No pain with gaseous bilateral lower extremity muscular strength is full to bilateral lower extremity compartments no gross deformity noted at this time. Testes: Negative for testicular swelling or testicular mass Debridement Note Debridement Note Post-Debridement Measurements and Additional Note: Post-Debridement Measurements/Treatment - Nurse 1 - General Ulcer Assessment Start: 08/26/21 09:03 Freq: Status: Active Protocol: .LOWEXT Activity Type Activity Date Activity User E-Sign Co-Sign Detail Recorded Client Recorded Date Recorded By Document 08/26/21 09:07 [id number] 08/26/21 09:20 DL 08/26/21 09:07 - Today's Visit Information Type of service Initial Visit Arrival Mode Ambulatory Transfer Assistance None Patient Identification Verified (Name & Yes ) Patient Requires Transmission-Based No Precautions Finger Stick Blood Sugar(mg/dl) (if didnt check indicated): Blood Sugar Stated by Patient Height and Weight Height 6 ft 1 in Weight 131.696 kg Weight in Pounds 290.3 lbs Body Mass Index (BMI) 38.2 BMI Classification Obese BSA - Ward 2.52 Vital Signs Temperature (97.8 F-99.1 F) 97.8 F Temperature Source Temporal Pulse Rate (60-100) 88 Pulse Location Monitor Respiratory Rate (12-18) 22 H Respiratory rate source Observation Blood Pressure (90/60-120/80) 162/95 H Blood Pressure Mean 117 Source Monitor Pain Scale: 0-10 Numeric Is Patient Pain Free? Yes Communication Assessment Preferred language Khmer Able to Read Yes Able to Write Yes Communication Tools None Right Hearing Abillity Normal Left Hearing Abillity Normal Visual Assistive Devices Glasses Teaching Assessment Preferences Verbal,Written, Demonstration Barriers to Learning None Readiness To Learn Good Willingness to Engage in Self Management Med Activies Readiness to Engage in Self Management Med Activities Anxiety Level Calm Cooperation Cooperative Perception Coherent Interest in Health Problem Asks Questions Education Importance Acknowledges Need Does Patient Smoke tobacco or other No substances Smoking Status Former smoker Is Patient Diabetic Yes Functional Assessment Recent Decline in Ability to Perform Denies Any Declines Culture/Pentecostalism/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 Margarine Churn Operator to contact place of baptism No Teaching: Wound Center *Infection -Person Taught Patient Diagnostic Tests Ordered -Person Taught Patient Dressing Your Wound -Person Taught Patient Foot Care -Person Taught Patient *Welcome to the Wound Center -Person Taught Patient WC - Nurse 1 - General Ulcer Measurement Start: 08/26/21 09:03 Freq: Status: Active Protocol: Activity Type Activity Date Activity User E-Sign Co-Sign Detail Recorded Client Recorded Date Recorded By Document 08/26/21 09:07 MAYURI [id number] 08/26/21 09:20 DL 08/26/21 09:07 Wound Center Nurse 1 #3 L Grt toe base -Current Size (cm) - Length 1.3 -Current Size (cm) - Width 1 -Current Size (cm) - Depth 0.5 -Total Square Cm 1.3 -Photo Taken Yes -Exudate Amt Medium -Exudate Type Serosanguineous -Wound Margin Distinct, Outline Attached -Granulation Amt Medium (34-66%) -Granulation Quality Red -Necrosis Amt Medium (34-66%) -Necrotic Tissue Type Adherent Slough -Structure Exposed N/A -Texture (Bev-wound Skin Appearance) Localized Edema ,Scarring -Moisture (Bev-wound Skin Appearance) Maceration -Color (Bev-wound Skin Appearance) No Abnormality -Temperature (Bev-wound Skin No Abnormality Appearance) (Pt Warm) -Tenderness on Palpation (Bev-wound No Skin Appearance) -Ulcer Cleansing Soap and Water -Foul Odor after Cleansing No -Anesthetic Used 4% Lidocaine Solution WC - Nurse 3 - General Ulcer D/C NN Start: 08/26/21 09:03 Freq: Status: Active Protocol: Activity Type Activity Date Activity User E-Sign Co-Sign Detail Recorded Client Recorded Date Recorded By Document 08/26/21 10:12 MW [id number] 08/26/21 10:13 MW 08/26/21 10:12 Wound Care Nurse 3 -Ulcer Cleansing Rinsed/ Irrigated with Saline -Foul Odor after Cleansing No -Negative Pressure Wound Therapy N/A -Primary Dressing Applied Aquacel AG 4x4 -Other Dressing betadine -Primary Dressing Covered/Secured with Dry Gauze & Roll Gauze, Secured with Tape -Other Covering abd pad -Aquacel AG 4x4 1 Treatment Response Procedure Tolerated Well Pain Scale: 0-10 Numeric Is Patient Pain Free? Yes Teaching: Wound Center Dressing Your Wound -Person Taught Patient -Teaching Method Discussion, Demonstration -Response to teaching Verbalize understanding WC - Visit Discharge Discharge Condition Unstable Ambulatory Status Ambulatory Transportation Private Auto Accompanied by self Medication Reconcilliation completed & No provided to patient/care provider Clinical Summary of Care Provided Yes Assessment/Plan Assessment/Plan (1) Non-pressure chronic ulcer of other part of left foot limited to breakdown of skin: CODE(S): L97.521 - Non-pressure chronic ulcer of other part of left foot limited to breakdown of skin (2) Hallux limitus: CODE(S): M20.5X9 - Other deformities of toe(s) (acquired), unspecified foot QUALIFIERS: Laterality: left Qualified Code(s): M20.5X2 - Other deformities of toe(s) (acquired), left foot (3) Cellulitis: CODE(S): L03.90 - Cellulitis, unspecified QUALIFIERS: Site of cellulitis of extremity: lower extremity Laterality: left (4) Diabetic neuropathy: CODE(S): E11.40 - Type 2 diabetes mellitus with diabetic neuropathy, unspecified PLAN: Patient examined and evaluated, all findings discussed with patient in detail. The left hallux wound appears to be infected clinically, with previous history of bone infection to the site I have concern for residual bone infection at this time. The wound was excisionally debrided of all nonviable tissue down to including level of subcutaneous tissue without incident. Hemostasis obtained with light compression. No anesthetic required due to diabetic neuropathy. Wound site was then flushed with normal sterile saline and cultured. Lab work was ordered to evaluate for systemic signs of infection, nutritional status, diabetes control. This included CBC CMP ESR CRP prealbumin. Radiographs of the left foot were ordered to evaluate for any osseous changes that might suggest chronic or acute bone infection. Due to presence of cellulitis at this time patient was given prescription for p.o. doxycycline 100 mg twice daily for 10 days as well as ciprofloxacin 750 mg twice a day for 10 days. Will monitor culture and sensitivity for any antibiotic changes. Patient has a Cam walking boot at home and will return to this, he will take time off work to ensure resolution of infection and improvement of his wound. Wound today was dressed with silver alginate and Betadine paint to the periwound area along with dry sterile dressing with light compression. He will perform this dressing change daily with wound cleansing using saline. He will follow up in 1 week at which time we will review his radiographs lab work and response to antibiotic therapy. Consideration will be made for any operative procedure that may enhance his ability to clear infection and heal this wound such as hallux interphalangeal joint arthroplasty with antibiotic bead placement versus hallux plus minus first metatarsal amputation. Patient will follow up in 1 week. Greater than 30 minutes was spent with the patient.
[2021-08-26 15:41] LABS: M R Staph aureus DNA By PCR Negative (Negative); Probe Check PASS; Staph aureus DNA By PCR NEGATIVE (Negative)
== END 2021-09-01 23:59 | disposition home or self-care (01) ==
LOC: WC 08:47
PROVIDERS: PCP Family Medicine; Visit Provider Podiatrist
DX: E11.621 Type 2 diabetes mellitus with foot ulcer (principal); L97.522 Non-pressure chronic ulcer of other part of left foot with fat layer exposed; L03.116 Cellulitis of left lower limb; M86.9 Osteomyelitis, unspecified; E11.40 Type 2 diabetes mellitus with diabetic neuropathy, unspecified; Z79.4 Long term (current) use of insulin; Z87.891 Personal history of nicotine dependence; M20.5X2 Other deformities of toe(s) (acquired), left foot
CPT/HCPCS: 11042; 36415; 73630; 80053; 83036; 84134; 85027; 85652; 86140; 87070; 87075; 87077; 87186; 87205; 87640; 99214; G0463

== ENCOUNTER 2021-08-26 11:44 | Outpatient (CLI) | payer OTHER, SELFPAY ==
--- NOTE | 2021-08-26 12:03 | RAD_ITS ---
STUDY: X-RAY - LEFT FOOT CLINICAL: Male, 36 years old. Great toe ulceration. TECHNIQUE: 3 view(s) of the foot. COMPARISON: 05/25/2020. FINDINGS: Normal talus, calcaneus, and tarsal bones. Normal visualized subtalar, talonavicular, calcaneocuboid, tarsal and tarsometatarsal articulations. Normal metatarsi. Mild arthrosis of the MTP and IP joints with hammertoe deformities, unchanged. Stable soft tissue swelling over the first digit with vascular calcification. RAD/Foot min 3 Views IMPRESSION: Stable foot. No bone erosion or soft tissue gas. Electronically Signed: Bhaskar Butler MD at 9:55 EST ,
[2021-08-26 12:20] LABS: Erythrocyte Sedimentation Rate 2 mm/hr (0-20)
[2021-08-26 12:21] LABS: Hematocrit 46.8 % (40-54); Hemoglobin 17.1 g/dL (13.0-16.5); Mean Corp Hgb Conc 36.5 g/dL (32-36); Mean Corpuscular Hgb 29.3 pg (27.0-32.0); Mean Corpuscular Volume 80.1 fL (80-94); Mean Platelet Vol. 9.2 fl (6.2-12.0); Platelet Count 272 K/mm3 (150-450); RBC Distribution Width CV 13.5 % (11.6-14.6); RBC Distribution Width SD 38.5 fl (35.1-43.9); Red Blood Count 5.84 M/mm3 (4.6-6.2); White Blood Count 10.1 K/mm3 (4.4-11.0)
[2021-08-26 13:07] LABS: Hemoglobin A1c 9.8 % (3.8-5.6)
[2021-08-26 13:12] LABS: ALB/GLOB Ratio 0.8 RATIO (0.9-2.4); AST(SGOT) 22 U/L (15-37); Alanine Aminotransfer ALT/SGPT 39 U/L (16-61); Albumin, Serum 3.4 g/dL (3.2-5.0); Alkaline Phosphatase 141 U/L (45-117); Anion Gap 6 (5-15); BUN 18 mg/dL (7-18); BUN/Creat Ratio 19.9 RATIO (10-20); CRP < 2.90 mg/L (0.0-3.0); Chloride 101 mmol/L (98-107); EST Glomerular Filtration Rate 100 mL/min (>60); Est Glom Filt Rate - Afr Amer 121 mL/min (>60); Glucose 335 mg/dL (74-106); Prealbumin 26.7 mg/dL (20.0-40.0); Protein, Total 7.4 g/dL (6.4-8.2); Sodium Level 136 mmol/L (136-145)
== END 2021-08-26 23:59 | disposition home or self-care (01) ==
PROVIDERS: PCP Family Medicine; Referring Provider Podiatrist; Visit Provider Podiatrist
DX: Z00.00 Encounter for general adult medical examination without abnormal findings (principal)
CPT/HCPCS: 36415; 73630; 80053; 83036; 84134; 85027; 85652; 86140

== ENCOUNTER 2021-09-30 09:45 | Outpatient (RCR) | payer OTHER, SELFPAY ==
[2021-09-02 00:43] VITALS: BP 162/95; PULSE 88; RESP 22; TEMP 36.6; BMI 38.2
[2021-09-23 09:48] VITALS: BP 173/95; PULSE 97; RESP 20; TEMP 36.4; BMI 38.2
--- NOTE | 2021-09-23 10:30 | PN.PCM_ITS ---
History of Present Illness Date of Service: 09/23/21 Chief Complaint: Left second toe wound Cellulitis-resolving osteomyelitis left 2nd toe History of Wound: Patient follows up chronic ulceration to the left hallux. Patient denies constitutional symptoms. Patient missed multiple appointments. Patient continue to work and work boots notes continued ulceration to the plantar left hallux. Denies any changes. Patient completed p.o. antibiotics. Patient has no pain to wound site. Recent A1c was 9.8. Patient notes blood glucose this morning was 180. Patient has no other complaints at this time. Patient dressing the site daily with silver alginate and DSD. Objective Data Objective Data Vital Signs: Vital Signs Temp Pulse Resp BP 97.5 F L 97 20 H 173/95 H 09/23/21 09:48 09/23/21 09:48 09/23/21 09:48 09/23/21 09:48 Weight: 131.696 kg Body Mass Index (BMI) 38.2 Physical Exam Narrative Patient alert oriented to person place and time. Vascular: Dorsalis pedis posterior tibial pulses palpable 2 out of 4 to bilateral lower extremity compartments. Digital hair growth noted. Capillary fill time brisk to lesser digits. Mild edema noted to left forefoot. No focal increase in warmth. Neurologic: Light touch protective sensation absent to bilateral feet. Dermatologic: Full-thickness ulceration noted to the plantar aspect of the left hallucal IPJ. Significant periwound hyperkeratosis undermining. Pre and post debridement measurements documented with nursing notes. No signs of infection. Mild periwound edema. No fluctuance crepitus noted to the periwound areas. Musculoskeletal: Hallux rigidus noted to the left big toe. Skin is contributing to wound formation. No pain with calf squeeze. Muscular strength full to bilateral lower extremity compartments. 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 ) Arrival Mode Ambulatory Transfer Assistance None Patient Identification Verified (Name & Yes ) Patient Requires Transmission-Based No Precautions Finger Stick Blood Sugar(mg/dl) (if not checked indicated): Blood Sugar Stated by Patient Height and Weight Body Mass Index (BMI) 38.2 BMI Classification Obese Vital Signs Temperature (97.8 F-99.1 F) 97.5 F L Temperature Source Temporal Pulse Rate (60-100) 97 Pulse Location Monitor Respiratory Rate (12-18) 20 H Respiratory rate source Observation Blood Pressure (90/60-120/80) 173/95 H Blood Pressure Mean (mm Hg) 121 Source Monitor History Since Last Visit- (Skip if this is Patient's initial visit) Have you changed medications since your No last visit? Any new allergies or adverse reactions No Had a fall/change in ADL's that may No increase risk of falls Signs or symptoms of abuse and/or No neglect since last visit Have you been in the hospital since your No last visit? Has dressing in place as prescribed Yes Has compression in place as prescribed N/A Has offloadiing in place as prescribed Yes Experienced any changes in pain level or No management Left Footwear Regular Shoe Right Footwear Regular Shoe Pain Scale: 0-10 Numeric Is Patient Pain Free? Yes WC - Nurse 1 - General Ulcer Measurement Start: 09/23/21 09:48 Freq: Status: Active Protocol: Activity Type Activity Date Activity User E-Sign Co-Sign Detail Recorded Client Recorded Date Recorded By Document 09/23/21 09:48 DL [id number] 09/23/21 09:57 DL 09/23/21 09:48 Wound Center Nurse 1 #3 L Grt toe base -Current Size (cm) - Length 1.1 -Current Size (cm) - Width 0.7 -Current Size (cm) - Depth 0.7 -Total Square Cm 0.77 -Photo Taken No -Exudate Amt Medium -Exudate Type Serosanguineous -Wound Margin Thickened & Rolled Under -Granulation Amt Medium (34-66%) -Granulation Quality Red -Necrosis Amt Large (67-100%) -Necrotic Tissue Type Adherent Slough -Texture (Bev-wound Skin Appearance) Callus -Moisture (Bev-wound Skin Appearance) Maceration -Color (Bev-wound Skin Appearance) No Abnormality -Temperature (Bev-wound Skin No Abnormality Appearance) (Pt Warm) -Tenderness on Palpation (Bev-wound No Skin Appearance) -Ulcer Cleansing Soap and Water -Foul Odor after Cleansing No -Anesthetic Used 4% Lidocaine Solution LARISSA - Nurse 2 - General Ulcer CM Notes Start: 09/23/21 09:48 Freq: Status: Active Protocol: Activity Type Activity Date Activity User E-Sign Co-Sign Detail Recorded Client Recorded Date Recorded By Document 09/23/21 10:05 HELIO [id number] 09/23/21 10:07 HELIO 09/23/21 10:05 Wound Center Nurse 2 -Time 10:05 -Correct Patient Yes -Correct Side, Site, Position Yes -Correct Procedure Yes -Procedure Performed Yes -Type of Procedure Debridement -Clinical Debridement Subcutaneous -Tissue Removed Subcutaneous -Post Debridement (cm) - Length 1.5 -Post Debridement (cm) - Width 1.5 -Post Debridement (cm) - Depth 0.1 -Total Square (Post) (cm) 2.25 -Area of Debridement (cm) - Length 1.5 -Area of Debridement (cm) - Width 1.5 -Total Square (Area) (cm) 2.25 -Tunneling No -Undermining/Tunneling No -Circular Undermining No -Wound/Ulcer Outcome Not Healed -Ulcer Cleansing Rinsed/ Irrigated with Saline -Foul Odor after Cleansing No -Bioengineered Tissue No -Bleeding Controlled with Pressure -Treatment Response Procedure Tolerated Well -Offloading Yes -Type of Offloading Surgical Shoe -Debridement - Subq, 1st 20sq cm Yes Pain Scale: 0-10 Numeric Is Patient Pain Free? Yes - Nurse 3 - General Ulcer D/C NN Start: 09/23/21 09:48 Freq: Status: Active Protocol: Activity Type Activity Date Activity User E-Sign Co-Sign Detail Recorded Client Recorded Date Recorded By Document 09/23/21 10:21 DL [id number] 09/23/21 10:22 DL 09/23/21 10:21 Wound Care Nurse 3 #3 L Grt toe base -Ulcer Cleansing Soap and Water -Foul Odor after Cleansing No -Primary Dressing Applied Aquacel AG 2x2 -Primary Dressing Covered/Secured with Dry Gauze, Secured with Tape -Aquacel AG 2x2 1 Treatment Response Procedure Tolerated Well Pain Scale: 0-10 Numeric Is Patient Pain Free? Yes - Visit Discharge Discharge Condition Stable Ambulatory Status Ambulatory Transportation Private Auto Assessment/Plan Assessment/Plan (1) Non-pressure chronic ulcer of other part of left foot limited to breakdown of skin: CODE(S): L97.521 - Non-pressure chronic ulcer of other part of left foot limited to breakdown of skin PLAN: Patient examined evaluated, all findings cussed with patient in detail. No signs of infection to wound site at this time. Wound unchanged from previous visit. Wound was excisionally debrided down to including level of subcutaneous tissue of all nonviable tissue using a combination of tissue nippers and 5 mm dermal curette. No anesthesia required due to diabetic neuropathy. Hemostasis obtained with light compression. Patient tolerated procedure well. Wound was dressed with silver alginate DSD and compression with Tubigrip. Patient will continue cleansing the wound site daily with soap and water drying the area off dressing with silver alginate dry sterile dressing and Tubigrip dressing. I had detailed discussion with patient regarding improved control of his diabetes, nutritional status, nonweightbearing status in order to achieve wound healing. Patient and I came to and agreed upon plan to pursue a left hallux interphalangeal joint arthroplasty with application of antibiotic beads along with wound debridement. Followed by a period of prolonged immobilization in a total contact cast. This would require a period of short-term disability. We will plan to perform this procedure once is on the schedule and pursue short- term disability so that the patient's wound can heal and prevent recurrence in the future to allow the patient to maintain an ambulatory status so that he can better control his diabetes and continue to work. Patient will continue follow-up weekly to ensure that no infection develops. (2) Diabetic neuropathy: CODE(S): E11.40 - Type 2 diabetes mellitus with diabetic neuropathy, unspecified QUALIFIERS: Diabetes mellitus type: type 2 Diabetes mellitus complication detail: diabetic polyneuropathy Qualified Code(s): E11.42 - Type 2 diabetes mellitus with diabetic polyneuropathy
[2021-09-30 09:35] VITALS: BP 134/74; PULSE 67; TEMP 36.1; BMI 38.2
--- NOTE | 2021-09-30 10:21 | PN.PCM_ITS ---
History of Present Illness Date of Service: 09/30/21 Chief Complaint: Left second toe wound Cellulitis-resolving osteomyelitis left 2nd toe History of Wound: Patient follows up chronic ulceration to the left hallux. Patient denies constitutional symptoms. Patient missed multiple appointments. Patient continue to work and work boots notes continued ulceration to the plantar left hallux. Denies any changes. Patient completed p.o. antibiotics. Patient has no pain to wound site. Recent A1c was 9.8. Patient notes blood glucose this morning was 180. Patient has no other complaints at this time. Patient dressing the site daily with silver alginate and DSD. Objective Data Objective Data Vital Signs: Vital Signs Temp Pulse Resp BP 97.0 F L 67 20 H 134/74 H 09/30/21 09:35 09/30/21 09:35 09/23/21 09:48 09/30/21 09:35 Weight: 131.696 kg Body Mass Index (BMI) 38.2 Physical Exam Narrative Patient alert oriented to person place and time. Vascular: Dorsalis pedis posterior tibial pulses palpable 2 out of 4 to bilateral lower extremity compartments. Digital hair growth noted. Capillary fill time brisk to lesser digits. Mild edema noted to left forefoot. No focal increase in warmth. Neurologic: Light touch protective sensation absent to bilateral feet. Dermatologic: Full-thickness ulceration noted to the plantar aspect of the left hallucal IPJ. Significant periwound hyperkeratosis undermining. Pre and post debridement measurements documented with nursing notes. No signs of infection. Mild periwound edema. No fluctuance crepitus noted to the periwound areas. Musculoskeletal: Hallux rigidus noted to the left big toe. Skin is contributing to wound formation. No pain with calf squeeze. Muscular strength full to bilateral lower extremity compartments. 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 PROFESSOR ) ) Arrival Mode Ambulatory Ambulatory Transfer Assistance None Patient Identification Verified (Name & Yes Yes ) Patient Requires Transmission-Based No Precautions Finger Stick Blood Sugar(mg/dl) (if not checked indicated): Blood Sugar Stated by Patient Height and Weight Body Mass Index (BMI) 38.2 38.2 BMI Classification Obese Obese Vital Signs Temperature (97.8 F-99.1 F) 97.5 F L 97.0 F L Temperature Source Temporal Temporal Pulse Rate (60-100) 97 67 Pulse Location Monitor Monitor Respiratory Rate (12-18) 20 H Respiratory rate source Observation Blood Pressure (90/60-120/80) 173/95 H 134/74 H Blood Pressure Mean (mm Hg) 121 94 Source Monitor Monitor Position Semi-Fowlers Blood Pressure Location Right Arm History Since Last Visit- (Skip if this is Patient's initial visit) Have you changed medications since your No No last visit? Any new allergies or adverse reactions No No Had a fall/change in ADL's that may No increase risk of falls Signs or symptoms of abuse and/or No neglect since last visit Have you been in the hospital since your No No last visit? Has dressing in place as prescribed Yes Yes Has compression in place as prescribed N/A N/A Has offloadiing in place as prescribed Yes N/A Experienced any changes in pain level or No No management Left Footwear Regular Shoe Regular Shoe Right Footwear Regular Shoe Regular Shoe Pain Scale: 0-10 Numeric Is Patient Pain Free? Yes Yes - Nurse 1 - General Ulcer Measurement Start: 09/23/21 09:48 Freq: Status: Active Protocol: Activity Type Activity Date Activity User E-Sign Co-Sign Detail Recorded Client Recorded Date Recorded By Document 09/23/21 09:48 DL [id number] 09/23/21 09:57 DL Document 09/30/21 09:35 CARRIE [id number] 09/30/21 09:37 CARRIE 09/23/21 09/30/21 09:48 09:35 Wound Center Nurse 1 #3 L Grt toe base -Current Size (cm) - Length 1.1 0.5 -Current Size (cm) - Width 0.7 1 -Current Size (cm) - Depth 0.7 0.2 -Total Square Cm 0.77 0.5 -Photo Taken No -Exudate Amt Medium Small -Exudate Type Serosanguineous Serosanguineous -Wound Margin Thickened & Distinct, Rolled Under Outline Attached -Granulation Amt Medium (34-66%) Small (1-33%) -Granulation Quality Red [place] -Necrosis Amt Large (67-100%) None Present (0 %) -Necrotic Tissue Type Adherent Slough -Texture (Bev-wound Skin Appearance) Callus Assessed, Scarring -Moisture (Bev-wound Skin Appearance) Maceration Assessed,Dry/ Scaly -Color (Bev-wound Skin Appearance) No Abnormality No Abnormality, Assessed -Temperature (Bev-wound Skin No Abnormality No Abnormality Appearance) (Pt Warm) (Pt Warm) -Tenderness on Palpation (Bev-wound No No Skin Appearance) -Ulcer Cleansing Soap and Water Rinsed/ Irrigated with Saline -Foul Odor after Cleansing No No -Anesthetic Used 4% Lidocaine 5% Lidocaine Solution Gel WC - Nurse 2 - General Ulcer CM Notes Start: 09/23/21 09:48 Freq: Status: Active Protocol: Activity Type Activity Date Activity User E-Sign Co-Sign Detail Recorded Client Recorded Date Recorded By Document 09/23/21 10:05 [id number] 09/23/21 10:07 Document 09/30/21 10:00 [id number] 09/30/21 10:07 09/23/21 09/30/21 10:05 10:00 Wound Center Nurse 2 #3 L Grt toe base -Time 10:05 10:03 -Correct Patient Yes Yes -Correct Side, Site, Position Yes Yes -Correct Procedure Yes Yes -Procedure Performed Yes Yes -Type of Procedure Debridement Debridement -Clinical Debridement Subcutaneous Subcutaneous -Tissue Removed Subcutaneous Subcutaneous -Post Debridement (cm) - Length 1.5 1.2 -Post Debridement (cm) - Width 1.5 1.0 -Post Debridement (cm) - Depth 0.1 0.2 -Total Square (Post) (cm) 2.25 1.20 -Area of Debridement (cm) - Length 1.5 1.2 -Area of Debridement (cm) - Width 1.5 1.0 -Total Square (Area) (cm) 2.25 1.20 -Tunneling No No -Undermining/Tunneling No No -Circular Undermining No No -Wound/Ulcer Outcome Not Healed Not Healed -Ulcer Cleansing Rinsed/ Rinsed/ Irrigated with Irrigated with Saline Saline -Foul Odor after Cleansing No No -Bioengineered Tissue No No -Bleeding Controlled with Pressure Pressure -Treatment Response Procedure Procedure Tolerated Well Tolerated Well -Offloading Yes Yes -Type of Offloading Surgical Shoe Surgical Shoe -Debridement - Subq, 1st 20sq cm Yes Yes Pain Scale: 0-10 Numeric Is Patient Pain Free? Yes Yes - Nurse 3 - General Ulcer D/C NN Start: 09/23/21 09:48 Freq: Status: Active Protocol: Activity Type Activity Date Activity User E-Sign Co-Sign Detail Recorded Client Recorded Date Recorded By Document 09/23/21 10:21 DL [id number] 09/23/21 10:22 DL 09/23/21 10:21 Wound Care Nurse 3 #3 L Grt toe base -Ulcer Cleansing Soap and Water -Foul Odor after Cleansing No -Primary Dressing Applied Aquacel AG 2x2 -Primary Dressing Covered/Secured with Dry Gauze, Secured with Tape -Aquacel AG 2x2 1 Treatment Response Procedure Tolerated Well Pain Scale: 0-10 Numeric Is Patient Pain Free? Yes - Visit Discharge Discharge Condition Stable Ambulatory Status Ambulatory Transportation Private Auto Assessment/Plan Assessment/Plan (1) Non-pressure chronic ulcer of other part of left foot limited to breakdown of skin: CODE(S): L97.521 - Non-pressure chronic ulcer of other part of left foot limited to breakdown of skin PLAN: Patient examined evaluated, all findings cussed with patient in detail. No signs of infection to wound site at this time. Wound improved from previous visit. Wound was excisionally debrided down to including level of subcutaneous tissue of all nonviable tissue using a combination of tissue nippers and 5 mm dermal curette. No anesthesia required due to diabetic neuropathy. Hemostasis obtained with light compression. Patient tolerated procedure well. Wound was dressed with silver alginate DSD and compression with Tubigrip. Patient will continue cleansing the wound site daily with soap and water drying the area off dressing with silver alginate dry sterile dressing and Tubigrip dressing. I had detailed discussion with patient regarding improved control of his diabetes, nutritional status, nonweightbearing status in order to achieve wound healing. Patient notes significant improvement with this regard. Patient wishes to delay elective surgery and pursue conservative treatment of his ulceration. The aforementioned procedure would include a hallux interphalangeal joint arthroplasty with application of antibiotic beads. We will plan for application of epifix will total contact cast on his follow-up visit. Patient will continue improved blood sugar control as he notes his blood sugar today it was 136. Patient appears motivated to improve his overall health status and will keep his wound offloaded in a Cam walking boot which she already has at home. He will follow up in 1 week. (2) Diabetic neuropathy: CODE(S): E11.40 - Type 2 diabetes mellitus with diabetic neuropathy, unspecified QUALIFIERS: Diabetes mellitus type: type 2 Diabetes mellitus complication detail: diabetic polyneuropathy Qualified Code(s): E11.42 - Type 2 diabetes mellitus with diabetic polyneuropathy
== END 2021-10-02 23:59 | disposition home or self-care (01) ==
LOC: WC 09:45
PROVIDERS: PCP Family Medicine; Visit Provider Podiatrist
DX: E11.621 Type 2 diabetes mellitus with foot ulcer (principal); L97.521 Non-pressure chronic ulcer of other part of left foot limited to breakdown of skin; M20.22 Hallux rigidus, left foot; E11.40 Type 2 diabetes mellitus with diabetic neuropathy, unspecified; E66.9 Obesity, unspecified; Z68.38 Body mass index [BMI] 38.0-38.9, adult; Z79.4 Long term (current) use of insulin
CPT/HCPCS: 11042

== ENCOUNTER 2021-10-28 08:45 | Outpatient (RCR) | payer OTHER, SELFPAY ==
[2021-10-03 00:42] VITALS: BP 134/74; PULSE 67; RESP 20; TEMP 36.1; BMI 38.2
[2021-10-07 09:38] VITALS: TEMP 36.2; BMI 38.2
--- NOTE | 2021-10-07 09:52 | PN.PCM_ITS ---
History of Present Illness Date of Service: 10/07/21 Chief Complaint: Left second toe wound Cellulitis-resolving osteomyelitis left 2nd toe History of Wound: Patient follows up chronic ulceration to the left hallux. Patient denies constitutional symptoms. Patient is now motivated to progress in the wound healing process. He has improved his diet. He has improved his ability to immobilize his foot on the left side. Patient is taking. Off from work in order to get this wound healed.. Denies any changes. Patient completed p.o. antibiotics. Patient has no pain to wound site. Recent A1c was 9.8. Patient has no other complaints at this time. Patient dressing the site daily with silver alginate and DSD, attempting to offload with a Cam walking boot. Objective Data Objective Data Vital Signs: Vital Signs Temp Pulse Resp BP 97.2 F L 67 20 H 134/74 H 10/07/21 09:38 10/03/21 00:42 10/03/21 00:42 10/03/21 00:42 Weight: 131.696 kg Body Mass Index (BMI) 38.2 Physical Exam Narrative Patient alert oriented to person place and time. Vascular: Dorsalis pedis posterior tibial pulses palpable 2 out of 4 to bilateral lower extremity compartments. Digital hair growth noted. Capillary fill time brisk to lesser digits. Mild edema noted to left forefoot. No focal increase in warmth. Neurologic: Light touch protective sensation absent to bilateral feet. Dermatologic: Full-thickness ulceration noted to the plantar aspect of the left hallucal IPJ. Significant periwound hyperkeratosis undermining. Pre and post debridement measurements documented with nursing notes. No signs of infection. Mild periwound edema. No fluctuance crepitus noted to the periwound areas. Musculoskeletal: Hallux rigidus noted to the left big toe. Skin is contributing to wound formation. No pain with calf squeeze. Muscular strength full to bilateral lower extremity compartments. Debridement Note Debridement Note Post-Debridement Measurements and Additional Note: Post-Debridement Measurements/Treatment WC - Nurse 1 - General Ulcer Assessment Start: 10/07/21 09:38 Freq: Status: Active Protocol: LARISSA.LOWEXT Activity Type Activity Date Activity User E-Sign Co-Sign Detail Recorded Client Recorded Date Recorded By Document 10/07/21 09:38 CARRIE [id number] 10/07/21 09:39 CARRIE 10/07/21 09:38 - Today's Visit Information Type of service Follow-up Visit (Physician/DIALYSIS NURSE ) Arrival Mode Ambulatory Patient Identification Verified (Name & Yes ) Finger Stick Blood Sugar(mg/dl) (if 180 indicated): Blood Sugar Stated by Patient Height and Weight Body Mass Index (BMI) 38.2 BMI Classification Obese Vital Signs Temperature (97.8 F-99.1 F) 97.2 F L Temperature Source Temporal History Since Last Visit- (Skip if this is Patient's initial visit) Have you changed medications since your No last visit? Any new allergies or adverse reactions No Had a fall/change in ADL's that may No increase risk of falls Signs or symptoms of abuse and/or No neglect since last visit Have you been in the hospital since your No last visit? Has dressing in place as prescribed Yes Has compression in place as prescribed Yes Has offloadiing in place as prescribed N/A Experienced any changes in pain level or No management Left Footwear Regular Shoe Right Footwear Regular Shoe Pain Scale: 0-10 Numeric Is Patient Pain Free? Yes - Nurse 1 - General Ulcer Measurement Start: 10/07/21 09:38 Freq: Status: Active Protocol: Activity Type Activity Date Activity User E-Sign Co-Sign Detail Recorded Client Recorded Date Recorded By Document 10/07/21 09:38 [id number] 10/07/21 09:39 CARRIE 10/07/21 09:38 Wound Center Nurse 1 #3 L Grt toe base -Current Size (cm) - Length 0.7 -Current Size (cm) - Width 1 -Current Size (cm) - Depth 0.2 -Total Square Cm 0.7 -Exudate Amt Small -Exudate Type Serosanguineous -Wound Margin Distinct, Outline Attached -Granulation Amt Small (1-33%) -Granulation Quality Red -Necrosis Amt Small (1-33%) -Necrotic Tissue Type Adherent Slough -Texture (Bev-wound Skin Appearance) Assessed, Scarring -Moisture (Bev-wound Skin Appearance) No Abnormality, Assessed -Color (Bev-wound Skin Appearance) No Abnormality, Assessed -Temperature (Bev-wound Skin No Abnormality Appearance) (Pt Warm) -Tenderness on Palpation (Bev-wound No Skin Appearance) -Ulcer Cleansing Rinsed/ Irrigated with Saline -Foul Odor after Cleansing No -Anesthetic Used 4% Lidocaine Solution WC - Nurse 2 - General Ulcer CM Notes Start: 10/07/21 09:38 Freq: Status: Active Protocol: Activity Type Activity Date Activity User E-Sign Co-Sign Detail Recorded Client Recorded Date Recorded By Document 10/07/21 09:44 HELIO [id number] 10/07/21 09:51 HELIO 10/07/21 09:44 Wound Center Nurse 2 -Time 09:44 -Correct Patient Yes -Correct Side, Site, Position Yes -Correct Procedure Yes -Procedure Performed Yes -Type of Procedure Debridement -Clinical Debridement Subcutaneous -Tissue Removed Subcutaneous -Post Debridement (cm) - Length 1.0 -Post Debridement (cm) - Width 0.9 -Post Debridement (cm) - Depth 0.2 -Total Square (Post) (cm) 0.90 -Area of Debridement (cm) - Length 1.0 -Area of Debridement (cm) - Width 0.9 -Total Square (Area) (cm) 0.90 -Tunneling No -Undermining/Tunneling No -Circular Undermining No -Wound/Ulcer Outcome Not Healed -Ulcer Cleansing Rinsed/ Irrigated with Saline -Foul Odor after Cleansing No -Bioengineered Tissue No -Bleeding Controlled with Pressure -Treatment Response Procedure Tolerated Well -Offloading Yes -Type of Offloading Total Contact Cast (TCC) - Left ($) -Debridement - Subq, 1st 20sq cm Yes Pain Scale: 0-10 Numeric Is Patient Pain Free? Yes Assessment/Plan Assessment/Plan (1) Non-pressure chronic ulcer of other part of left foot limited to breakdown of skin: CODE(S): L97.521 - Non-pressure chronic ulcer of other part of left foot limited to breakdown of skin PLAN: Patient examined evaluated, all findings cussed with patient in detail. No signs of infection to wound site at this time. Wound improved from previous visit. Wound was excisionally debrided down to including level of subcutaneous tissue of all nonviable tissue using a combination of tissue nippers and 5 mm dermal curette. No anesthesia required due to diabetic neuropathy. Hemostasis obtained with light compression. Patient tolerated procedure well. Wound was dressed with silver alginate DSD and compression with Tubigrip. Total contact cast applied to left lower extremity. Cast boot dispensed patient can ambulate as tolerated in this apparatus. Patient will follow up in 1 week for reapplication and redebridement of his left hallux ulceration. He has made significant improvement since his previous visit. (2) Diabetic neuropathy: CODE(S): E11.40 - Type 2 diabetes mellitus with diabetic neuropathy, unspecified QUALIFIERS: Diabetes mellitus type: type 2 Diabetes mellitus complication detail: diabetic polyneuropathy Qualified Code(s): E11.42 - Type 2 diabetes mellitus with diabetic polyneuropathy
[2021-10-16 09:55] VITALS: BP 179/98; PULSE 98; RESP 20; TEMP 36.4; BMI 38.2
--- NOTE | 2021-10-16 10:30 | PCM.WC.PN ---
History of Present Illness Date of Service: 10/16/21 Chief Complaint: Left second toe wound Cellulitis-resolving osteomyelitis left 2nd toe History of Wound: Patient follows up chronic ulceration to the left hallux. Patient denies constitutional symptoms. Patient is now motivated to progress in the wound healing process. He has improved his diet. He has improved his ability to immobilize his foot on the left side. Patient is taking. Off from work in order to get this wound healed.. Denies any changes. Patient completed p.o. antibiotics. Patient has no pain to wound site. Recent A1c was 9.8. Patient has no other complaints at this time. Patient dressing the site daily with silver alginate and DSD, attempting to offload with a Cam walking boot. Objective Data Objective Data Vital Signs: Vital Signs Temp Pulse Resp BP 97.6 F L 98 20 H 179/98 H 10/16/21 09:55 10/16/21 09:55 10/16/21 09:55 10/16/21 09:55 Weight: 131.696 kg Body Mass Index (BMI) 38.2 Physical Exam Narrative Patient alert oriented to person place and time. Vascular: Dorsalis pedis posterior tibial pulses palpable 2 out of 4 to bilateral lower extremity compartments. Digital hair growth noted. Capillary fill time brisk to lesser digits. Mild edema noted to left forefoot. No focal increase in warmth. Neurologic: Light touch protective sensation absent to bilateral feet. Dermatologic: Full-thickness ulceration noted to the plantar aspect of the left hallucal IPJ. Significant periwound hyperkeratosis undermining. Pre and post debridement measurements documented with nursing notes. No signs of infection. Mild periwound edema. No fluctuance crepitus noted to the periwound areas. Musculoskeletal: Hallux rigidus noted to the left big toe. Skin is contributing to wound formation. No pain with calf squeeze. Muscular strength full to bilateral lower extremity compartments. 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 (Physician/SMOKE JUMPER SUPERVISOR ) ) Arrival Mode Ambulatory Ambulatory Transfer Assistance None Patient Identification Verified (Name & Yes Yes ) Patient Requires Transmission-Based No Precautions Finger Stick Blood Sugar(mg/dl) (if 180 not checked indicated): Blood Sugar Stated by Stated by Patient Patient Height and Weight Body Mass Index (BMI) 38.2 38.2 BMI Classification Obese Obese Vital Signs Temperature (97.8 F-99.1 F) 97.2 F L 97.6 F L Temperature Source Temporal Temporal Pulse Rate (60-100) 98 Pulse Location Monitor Respiratory Rate (12-18) 20 H Respiratory rate source Observation Blood Pressure (90/60-120/80) 179/98 H Blood Pressure Mean (mm Hg) 125 Source Monitor History Since Last Visit- (Skip if this is Patient's initial visit) Have you changed medications since your No No last visit? Any new allergies or adverse reactions No No Had a fall/change in ADL's that may No No increase risk of falls Signs or symptoms of abuse and/or No No neglect since last visit Have you been in the hospital since your No No last visit? Has dressing in place as prescribed Yes Yes Has compression in place as prescribed Yes N/A Has offloadiing in place as prescribed N/A Yes Experienced any changes in pain level or No No management Left Footwear Regular Shoe Total Contact Cast Right Footwear Regular Shoe Pain Scale: 0-10 Numeric Is Patient Pain Free? Yes Yes - Nurse 1 - General Ulcer Measurement Start: 10/07/21 09:38 Freq: Status: Active Protocol: Activity Type Activity Date Activity User E-Sign Co-Sign Detail Recorded Client Recorded Date Recorded By Document 10/07/21 09:38 KR [id number] 10/07/21 09:39 KR Document 10/16/21 09:55 DL [id number] 10/16/21 10:04 DL 10/07/21 10/16/21 09:38 09:55 Wound Center Nurse 1 #3 L Grt toe base -Current Size (cm) - Length 0.7 0.6 -Current Size (cm) - Width 1 0.7 -Current Size (cm) - Depth 0.2 0.1 -Total Square Cm 0.7 0.42 -Photo Taken No -Exudate Amt Small Small -Exudate Type Serosanguineous Serosanguineous -Wound Margin Distinct, Distinct, Outline Outline Attached Attached -Granulation Amt Small (1-33%) Large (67-100%) -Granulation Quality Red Red -Necrosis Amt Small (1-33%) None Present (0 %) -Necrotic Tissue Type Adherent Slough -Structure Exposed N/A -Texture (Bev-wound Skin Appearance) Assessed, Callus Scarring -Moisture (Bev-wound Skin Appearance) No Abnormality, Maceration Assessed -Color (Bev-wound Skin Appearance) No Abnormality, No Abnormality Assessed -Temperature (Bev-wound Skin No Abnormality No Abnormality Appearance) (Pt Warm) (Pt Warm) -Tenderness on Palpation (Bev-wound No No Skin Appearance) -Ulcer Cleansing Rinsed/ Soap and Water Irrigated with Saline -Foul Odor after Cleansing No No -Anesthetic Used 4% Lidocaine 5% Lidocaine Solution Gel WC - Nurse 2 - General Ulcer CM Notes Start: 10/07/21 09:38 Freq: Status: Active Protocol: Activity Type Activity Date Activity User E-Sign Co-Sign Detail Recorded Client Recorded Date Recorded By Document 10/07/21 09:44 [id number] 10/07/21 09:51 Document 10/16/21 10:21 MW [id number] 10/16/21 10:24 MW 10/07/21 10/16/21 09:44 10:21 Wound Center Nurse 2 #3 L Grt toe base -Time 09:44 10:22 -Correct Patient Yes Yes -Correct Side, Site, Position Yes Yes -Correct Procedure Yes Yes -Procedure Performed Yes Yes -Type of Procedure Debridement Debridement -Clinical Debridement Subcutaneous Subcutaneous -Tissue Removed Subcutaneous Subcutaneous -Post Debridement (cm) - Length 1.0 0.6 -Post Debridement (cm) - Width 0.9 0.7 -Post Debridement (cm) - Depth 0.2 0.3 -Total Square (Post) (cm) 0.90 0.42 -Area of Debridement (cm) - Length 1.0 0.6 -Area of Debridement (cm) - Width 0.9 0.7 -Total Square (Area) (cm) 0.90 0.42 -Tunneling No No -Undermining/Tunneling No No -Circular Undermining No No -Wound/Ulcer Outcome Not Healed Not Healed -Ulcer Cleansing Rinsed/ Rinsed/ Irrigated with Irrigated with Saline Saline -Foul Odor after Cleansing No No -Bioengineered Tissue No No -Bleeding Controlled with Pressure Pressure -Treatment Response Procedure Procedure Tolerated Well Tolerated Well -Offloading Yes No -Type of Offloading Total Contact Total Contact Cast (TCC) - Cast (TCC) - Left ($) Left ($) -Debridement - Subq, 1st 20sq cm Yes Yes Pain Scale: 0-10 Numeric Is Patient Pain Free? 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 Yes - Visit Discharge Discharge Condition Stable Ambulatory Status Ambulatory Transportation Private Auto Assessment/Plan Assessment/Plan (1) Non-pressure chronic ulcer of other part of left foot limited to breakdown of skin: CODE(S): L97.521 - Non-pressure chronic ulcer of other part of left foot limited to breakdown of skin PLAN: Patient examined evaluated, all findings cussed with patient in detail. No signs of infection to wound site at this time. Wound significantly improved with use of total contact cast and better dietary control. Wound was excisionally debrided down to including level of subcutaneous tissue of all nonviable tissue using a combination of tissue nippers and 5 mm dermal curette. No anesthesia required due to diabetic neuropathy. Hemostasis obtained with light compression. Patient tolerated procedure well. Wound was dressed with silver alginate DSD and compression with Tubigrip. Total contact cast applied to left lower extremity. Cast boot dispensed patient can ambulate as tolerated in this apparatus. Patient will follow up in 1 week for reapplication and redebridement of his left hallux ulceration. He has made significant improvement since his previous visit. Patient has made significant improvement since his previous visit and demonstrate significant motivation to improve. He notes his blood sugar on a daily basis been around 1 20-1 70, he has taken this some time off work and has been offloading with a total contact cast. These 3 things have led to the patient significantly improving his wound size by approximately 50% reduction since his previous visit. (2) Diabetic neuropathy: CODE(S): E11.40 - Type 2 diabetes mellitus with diabetic neuropathy, unspecified QUALIFIERS: Diabetes mellitus type: type 2 Diabetes mellitus complication detail: diabetic polyneuropathy Qualified Code(s): E11.42 - Type 2 diabetes mellitus with diabetic polyneuropathy
[2021-10-21 09:43] VITALS: BP 176/93; PULSE 100; RESP 16; TEMP 35.9; BMI 38.2
--- NOTE | 2021-10-21 10:31 | PCM.WC.PN ---
History of Present Illness Date of Service: 10/21/21 Chief Complaint: Left second toe wound Cellulitis-resolving osteomyelitis left 2nd toe Progress of Wound: This 36-year-old male presents for follow-up on left hallux ulceration he had a total contact cast since previous visit. Patient notes that he got the site wet. Patient denies any constitutional symptoms or pain to the wound site. Patient otherwise been compliant with treatment he was unaware that he got his dressing wet. He has been limiting his ambulation to transfer in his house and been improving his nutritional intake of vegetables. He has no other complaints at this time. Objective Data Objective Data Vital Signs: Vital Signs Temp Pulse Resp BP 96.7 F L 100 16 176/93 H 10/21/21 09:43 10/21/21 09:43 10/21/21 09:43 10/21/21 09:43 Oxygen Delivery Method Room Air Weight: 131.696 kg Body Mass Index (BMI) 38.2 Physical Exam Narrative Patient alert oriented to person place and time. Vascular: Dorsalis pedis posterior tibial pulses palpable 2 out of 4 to bilateral lower extremity compartments. Digital hair growth noted. Capillary fill time brisk to lesser digits. Mild edema noted to left forefoot. No focal increase in warmth. Neurologic: Light touch protective sensation absent to bilateral feet. Dermatologic: Full-thickness ulceration noted to the plantar aspect of the left hallucal IPJ. Significant periwound hyperkeratosis undermining. Pre and post debridement measurements documented with nursing notes. No signs of infection. Mild periwound edema. No fluctuance crepitus noted to the periwound areas. Significant periwound maceration today secondary to excessive moisture on skin. Wound still looks improved at this time. Musculoskeletal: Hallux rigidus noted to the left big toe. Skin is contributing to wound formation. No pain with calf squeeze. Muscular strength full to bilateral lower extremity compartments. Debridement Note Debridement Note Post-Debridement Measurements and Additional Note: Post-Debridement Measurements/Treatment WC - Nurse 1 - General Ulcer Assessment Start: 10/07/21 09:38 Freq: Status: Active Protocol: LARISSA.LOWEXT Activity Type Activity Date Activity User E-Sign Co-Sign Detail Recorded Client Recorded Date Recorded By Document 10/07/21 09:38 KR [id number] 10/07/21 09:39 KR Document 10/16/21 09:55 DL [id number] 10/16/21 10:04 DL Document 10/21/21 09:43 BMF [id number] 10/21/21 10:02 BMF 10/07/21 10/16/21 10/21/21 09:38 09:55 09:43 WC - Today's Visit Information Type of service Follow-up Visit Follow-up Visit Follow-up Visit (Physician/NEIGHBORHOOD AIDE (Physician/NEIGHBORHOOD AIDE (Physician/NEIGHBORHOOD AIDE ) ) ) Arrival Mode Ambulatory Ambulatory Ambulatory Transfer Assistance None None Patient Identification Verified (Name & Yes Yes Yes ) Patient Requires Transmission-Based No No Precautions Finger Stick Blood Sugar(mg/dl) (if 180 not checked indicated): Blood Sugar Stated by Stated by Patient Patient Height and Weight Body Mass Index (BMI) 38.2 38.2 38.2 BMI Classification Obese Obese Obese Vital Signs Temperature (97.8 F-99.1 F) 97.2 F L 97.6 F L 96.7 F L Temperature Source Temporal Temporal Temporal Pulse Rate (60-100) 98 100 Pulse Location Monitor Monitor Respiratory Rate (12-18) 20 H 16 Respiratory rate source Observation Observation Oxygen Delivery Method Room Air Blood Pressure (90/60-120/80) 179/98 H 176/93 H Blood Pressure Mean (mm Hg) 125 120 Source Monitor Monitor Position Sitting Blood Pressure Location Right Arm History Since Last Visit- (Skip if this is Patient's initial visit) Have you changed medications since your No No No last visit? Any new allergies or adverse reactions No No No Had a fall/change in ADL's that may No No No increase risk of falls Signs or symptoms of abuse and/or No No No neglect since last visit Have you been in the hospital since your No No No last visit? Has dressing in place as prescribed Yes Yes Yes Has compression in place as prescribed Yes N/A N/A Has offloadiing in place as prescribed N/A Yes Yes Experienced any changes in pain level or No No No management Left Footwear Regular Shoe Total Contact Total Contact Cast Cast Right Footwear Regular Shoe Regular Shoe Pain Scale: 0-10 Numeric Is Patient Pain Free? Yes Yes Yes - Nurse 1 - General Ulcer Measurement Start: 10/07/21 09:38 Freq: Status: Active Protocol: Activity Type Activity Date Activity User E-Sign Co-Sign Detail Recorded Client Recorded Date Recorded By Document 10/07/21 09:38 KR [id number] 10/07/21 09:39 KR Document 10/16/21 09:55 DL [id number] 10/16/21 10:04 DL Document 10/21/21 09:43 [facility] [id number] 10/21/21 10:02 BMF 10/07/21 10/16/21 10/21/21 09:38 09:55 09:43 Wound Center Nurse 1 #3 L Grt toe base -Combined with other wound No -Current Size (cm) - Length 0.7 0.6 0.4 -Current Size (cm) - Width 1 0.7 0.5 -Current Size (cm) - Depth 0.2 0.1 0.2 -Total Square Cm 0.7 0.42 0.20 -Date of Last Picture (Recall this 10/21/21 field) -Photo Taken No Yes -Epithelialization None Present -Tunneling No -Undermining/Tunneling No -Circular Undermining No -Exudate Amt Small Small Medium -Exudate Type Serosanguineous Serosanguineous Serosanguineous -Wound Margin Distinct, Distinct, Distinct, Outline Outline Outline Attached Attached Attached -Granulation Amt Small (1-33%) Large (67-100%) Large (67-100%) -Granulation Quality Red Red Red -Slough/Fibrin Yes -Necrosis Amt Small (1-33%) None Present (0 Small (1-33%) %) -Necrotic Tissue Type Adherent Slough Adherent Slough -Structure Exposed N/A -Texture (Bev-wound Skin Appearance) Assessed, Callus Assessed Scarring -Moisture (Bev-wound Skin Appearance) No Abnormality, Maceration Assessed, Assessed Maceration -Color (Bev-wound Skin Appearance) No Abnormality, No Abnormality Assessed, Assessed Erythema,Palor -Temperature (Bev-wound Skin No Abnormality No Abnormality No Abnormality Appearance) (Pt Warm) (Pt Warm) (Pt Warm) -Tenderness on Palpation (Bev-wound No No No Skin Appearance) -Ulcer Cleansing Rinsed/ Soap and Water Soap and Water Irrigated with Saline -Foul Odor after Cleansing No No No -Anesthetic Used 4% Lidocaine 5% Lidocaine 4% Lidocaine Solution Gel Solution Lower Limb Edema Present Yes Left Calf (cm) 40 Left Ankle (cm) 24.5 WC - Nurse 2 - General Ulcer CM Notes Start: 10/07/21 09:38 Freq: Status: Active Protocol: Activity Type Activity Date Activity User E-Sign Co-Sign Detail Recorded Client Recorded Date Recorded By Document 10/07/21 09:44 JF [id number] 10/07/21 09:51 JF Document 10/16/21 10:21 MW [id number] 10/16/21 10:24 MW 10/07/21 10/16/21 09:44 10:21 Wound Center Nurse 2 #3 L Grt toe base -Time 09:44 10:22 -Correct Patient Yes Yes -Correct Side, Site, Position Yes Yes -Correct Procedure Yes Yes -Procedure Performed Yes Yes -Type of Procedure Debridement Debridement -Clinical Debridement Subcutaneous Subcutaneous -Tissue Removed Subcutaneous Subcutaneous -Post Debridement (cm) - Length 1.0 0.6 -Post Debridement (cm) - Width 0.9 0.7 -Post Debridement (cm) - Depth 0.2 0.3 -Total Square (Post) (cm) 0.90 0.42 -Area of Debridement (cm) - Length 1.0 0.6 -Area of Debridement (cm) - Width 0.9 0.7 -Total Square (Area) (cm) 0.90 0.42 -Tunneling No No -Undermining/Tunneling No No -Circular Undermining No No -Wound/Ulcer Outcome Not Healed Not Healed -Ulcer Cleansing Rinsed/ Rinsed/ Irrigated with Irrigated with Saline Saline -Foul Odor after Cleansing No No -Bioengineered Tissue No No -Bleeding Controlled with Pressure Pressure -Treatment Response Procedure Procedure Tolerated Well Tolerated Well -Offloading Yes No -Type of Offloading Total Contact Total Contact Cast (TCC) - Cast (TCC) - Left ($) Left ($) -Debridement - Subq, 1st 20sq cm Yes Yes Pain Scale: 0-10 Numeric Is Patient Pain Free? Yes Yes WC - Nurse 3 - General Ulcer D/C NN Start: 10/07/21 09:38 Freq: Status: Active Protocol: Activity Type Activity Date Activity User E-Sign Co-Sign Detail Recorded Client Recorded Date Recorded By Document 10/07/21 09:59 [facility] [id number] 10/07/21 10:00 BMF Document 10/16/21 10:30 MW [id number] 10/16/21 10:32 MW Document 10/21/21 10:22 [facility] [id number] 10/21/21 10:23 BM 10/07/21 10/16/21 10/21/21 09:59 10:30 10:22 Wound Care Nurse 3 #3 L Grt toe base -Ulcer Cleansing Rinsed/ Rinsed/ Rinsed/ Irrigated with Irrigated with Irrigated with Saline Saline Saline -Foul Odor after Cleansing No No -Primary Dressing Applied Aquacel AG 2x2 Aquacel AG 4x4 Aquacel AG 2x2 -Other Dressing xtrasorb, tcc SUPER ABSORBANT undercast applied per kr mines inspector -Primary Dressing Covered/Secured with Dry Gauze & Roll Gauze, Secured with Tape -Other Covering TCC DRSG 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 Yes Yes Yes Teaching: Wound Center Dressing Your Wound -Person Taught Patient -Teaching Method Discussion -Response to teaching Verbalize understanding WC - Visit Discharge Discharge Condition Stable Stable Stable Ambulatory Status Ambulatory Ambulatory Wheelchair Transportation Private Auto Private Auto Private Auto Accompanied by SELF Medication Reconcilliation completed & No provided to patient/care provider Clinical Summary of Care Provided Yes Assessment/Plan Assessment/Plan (1) Non-pressure chronic ulcer of other part of left foot limited to breakdown of skin: CODE(S): L97.521 - Non-pressure chronic ulcer of other part of left foot limited to breakdown of skin PLAN: Patient examined evaluated, all findings cussed with patient in detail. Wound was debrided and cultured. Prescription for doxycycline and ciprofloxacin ordered. This is due to increased maceration and prevent any bacterial infection. Wound still he significantly improved from initial treatment. We will discontinue total contact cast until the periwound skin maceration has resolved. Wound was excisionally debrided down to including level of subcutaneous tissue of all nonviable tissue using a combination of tissue nippers and 5 mm dermal curette. No anesthesia required due to diabetic neuropathy. Hemostasis obtained with light compression. Patient tolerated procedure well. Wound was dressed with silver alginate DSD and compression with Tubigrip. This week patient will offload his wound with his cam walking boot performing heel weightbearing and limited to transfer purposes in his house. Follow-up in 1 week at which time we will return to total contact casting with epifix grafting. (2) Diabetic neuropathy: CODE(S): E11.40 - Type 2 diabetes mellitus with diabetic neuropathy, unspecified QUALIFIERS: Diabetes mellitus type: type 2 Diabetes mellitus complication detail: diabetic polyneuropathy Qualified Code(s): E11.42 - Type 2 diabetes mellitus with diabetic polyneuropathy
[2021-10-28 08:41] VITALS: BP 162/119; PULSE 105; RESP 18; TEMP 35.7; BMI 38.2
--- NOTE | 2021-10-28 08:56 | WC ---
Vital signs obtained upon patient arrival. Blood pressure elevated left arm 162/119. Rechecked after 10 minutes left arm 184/113. Patient stated he gets nervous at Dr. irby. Denies any s/s of hypertension. Elevated Bp reported to Dr. Rodriguez.
--- NOTE | 2021-10-28 09:06 | PCM.WC.PN ---
History of Present Illness Date of Service: 10/28/21 Chief Complaint: Left second toe wound Cellulitis-resolving osteomyelitis left 2nd toe History of Wound: Patient follows up chronic ulceration to the left hallux. Patient denies constitutional symptoms. Patient is now motivated to progress in the wound healing process. He has improved his diet. He has improved his ability to immobilize his foot on the left side. Patient is taking. Off from work in order to get this wound healed. Denies any changes. Patient currently taking p.o. doxycycline and ciprofloxacin as his wound demonstrates some significant drainage with maceration after he got the dressing wet on his previous visit. Patient has no pain to wound site. Recent A1c was 9.8. Patient has no other complaints at this time. Patient dressing the site daily with silver alginate and DSD, attempting to offload with a Cam walking boot. Objective Data Objective Data Vital Signs: Vital Signs Temp Pulse Resp BP 96.2 F L 105 H 18 162/119 H 10/28/21 08:41 10/28/21 08:41 10/28/21 08:41 10/28/21 08:41 Oxygen Delivery Method Room Air Weight: 131.696 kg Body Mass Index (BMI) 38.2 Lab / Micro Data Micro: Microbiology 10/21/21 10:11 Wound Abcess - Left Foot Gram Stain - Final 10/21/21 10:11 Wound Abcess - Left Foot Wound Culture - Final Staphylococcus aureus Pseudomonas aeroginosa Enterococcus faecalis Staphylococcus simulans Corynebacterium striatum 10/21/21 10:11 Wound Abcess - Left Foot Anaerobic Culture - Final No anaerobic bacteria isolated. Physical Exam Narrative Patient alert oriented to person place and time. Vascular: Dorsalis pedis posterior tibial pulses palpable 2 out of 4 to bilateral lower extremity compartments. Digital hair growth noted. Capillary fill time brisk to lesser digits. Mild edema noted to left forefoot. No focal increase in warmth. Neurologic: Light touch protective sensation absent to bilateral feet. Dermatologic: Full-thickness ulceration noted to the plantar aspect of the left hallucal IPJ. Significant periwound hyperkeratosis undermining. Pre and post debridement measurements documented with nursing notes. No signs of infection. Mild periwound edema. No fluctuance crepitus noted to the periwound areas. Maceration and drainage has resolved. Still no deep probing or concern for deep abscess. Toe is warm upon palpation. Wound still looks improved at this time. Musculoskeletal: Hallux rigidus noted to the left big toe. Skin is contributing to wound formation. No pain with calf squeeze. Muscular strength full to bilateral lower extremity compartments. Debridement Note Debridement Note Post-Debridement Measurements and Additional Note: Post-Debridement Measurements/Treatment - Nurse 1 - General Ulcer Assessment Start: 10/07/21 09:38 Freq: Status: Active Protocol: LARISSA.LOWEXT Activity Type Activity Date Activity User E-Sign Co-Sign Detail Recorded Client Recorded Date Recorded By Document 10/07/21 09:38 KR [id number] 10/07/21 09:39 KR Document 10/16/21 09:55 DL [id number] 10/16/21 10:04 DL Document 10/21/21 09:43 BMF [id number] 10/21/21 10:02 BMF Document 10/28/21 08:41 MW [id number] 10/28/21 08:50 MW 10/07/21 10/16/21 10/21/21 09:38 09:55 09:43 - Today's Visit Information Type of service Follow-up Visit Follow-up Visit Follow-up Visit (Physician/PUBLIC INFORMATION SPECIALIST (Physician/PUBLIC INFORMATION SPECIALIST (Physician/PUBLIC INFORMATION SPECIALIST ) ) ) Arrival Mode Ambulatory Ambulatory Ambulatory Transfer Assistance None None Accompanied by Patient Identification Verified (Name & Yes Yes Yes ) Patient Requires Transmission-Based No No Precautions Safety Precautions Finger Stick Blood Sugar(mg/dl) (if 180 not checked indicated): Blood Sugar Stated by Stated by Patient Patient Height and Weight Body Mass Index (BMI) 38.2 38.2 38.2 BMI Classification Obese Obese Obese Vital Signs Temperature (97.8 F-99.1 F) 97.2 F L 97.6 F L 96.7 F L Temperature Source Temporal Temporal Temporal Pulse Rate (60-100) 98 100 Pulse Location Monitor Monitor Respiratory Rate (12-18) 20 H 16 Respiratory rate source Observation Observation Oxygen Delivery Method Room Air Blood Pressure (90/60-120/80) 179/98 H 176/93 H Blood Pressure Mean (mm Hg) 125 120 Source Monitor Monitor Position Sitting Blood Pressure Location Right Arm History Since Last Visit- (Skip if this is Patient's initial visit) Have you changed medications since your No No No last visit? Any new allergies or adverse reactions No No No Had a fall/change in ADL's that may No No No increase risk of falls Signs or symptoms of abuse and/or No No No neglect since last visit Have you been in the hospital since your No No No last visit? Has dressing in place as prescribed Yes Yes Yes Has compression in place as prescribed Yes N/A N/A Has offloadiing in place as prescribed N/A Yes Yes Experienced any changes in pain level or No No No management Left Footwear Regular Shoe Total Contact Total Contact Cast Cast Right Footwear Regular Shoe Regular Shoe Pain Scale: 0-10 Numeric Is Patient Pain Free? Yes Yes Yes 10/28/21 08:41 WC - Today's Visit Information Type of service Follow-up Visit (Physician/PUBLIC INFORMATION SPECIALIST ) Arrival Mode Ambulatory Transfer Assistance None Accompanied by self Patient Identification Verified (Name & Yes ) Patient Requires Transmission-Based No Precautions Safety Precautions NA Finger Stick Blood Sugar(mg/dl) (if indicated): Blood Sugar Height and Weight Body Mass Index (BMI) 38.2 BMI Classification Obese Vital Signs Temperature (97.8 F-99.1 F) 96.2 F L Temperature Source Temporal Pulse Rate (60-100) 105 H Pulse Location Monitor Respiratory Rate (12-18) 18 Respiratory rate source Observation Oxygen Delivery Method Room Air Blood Pressure (90/60-120/80) 162/119 H Blood Pressure Mean (mm Hg) 133 Source Monitor Position Sitting Blood Pressure Location Left Arm History Since Last Visit- (Skip if this is Patient's initial visit) Have you changed medications since your last visit? Any new allergies or adverse reactions Had a fall/change in ADL's that may increase risk of falls Signs or symptoms of abuse and/or neglect since last visit Have you been in the hospital since your last visit? Has dressing in place as prescribed Has compression in place as prescribed Has offloadiing in place as prescribed Experienced any changes in pain level or management Left Footwear Right Footwear Pain Scale: 0-10 Numeric Is Patient Pain Free? Yes - Nurse 1 - General Ulcer Measurement Start: 10/07/21 09:38 Freq: Status: Active Protocol: Activity Type Activity Date Activity User E-Sign Co-Sign Detail Recorded Client Recorded Date Recorded By Document 10/07/21 09:38 [id number] 10/07/21 09:39 KR Document 10/16/21 09:55 DL [id number] 10/16/21 10:04 DL Document 10/21/21 09:43 BMF [id number] 10/21/21 10:02 BMF Document 10/28/21 08:41 MW [id number] 10/28/21 08:50 MW 10/07/21 10/16/21 10/21/21 09:38 09:55 09:43 Wound Center Nurse 1 #3 L Grt toe base -Combined with other wound No -Current Size (cm) - Length 0.7 0.6 0.4 -Current Size (cm) - Width 1 0.7 0.5 -Current Size (cm) - Depth 0.2 0.1 0.2 -Total Square Cm 0.7 0.42 0.20 -Date of Last Picture (Recall this 10/21/21 field) -Photo Taken No Yes -Epithelialization None Present -Tunneling No -Undermining/Tunneling No -Circular Undermining No -Exudate Amt Small Small Medium -Exudate Type Serosanguineous Serosanguineous Serosanguineous -Wound Margin Distinct, Distinct, Distinct, Outline Outline Outline Attached Attached Attached -Granulation Amt Small (1-33%) Large (67-100%) Large (67-100%) -Granulation Quality Red Red Red -Slough/Fibrin Yes -Necrosis Amt Small (1-33%) None Present (0 Small (1-33%) %) -Necrotic Tissue Type Adherent Slough Adherent Slough -Structure Exposed N/A -Texture (Bev-wound Skin Appearance) Assessed, Callus Assessed Scarring -Moisture (Bev-wound Skin Appearance) No Abnormality, Maceration Assessed, Assessed Maceration -Color (Bev-wound Skin Appearance) No Abnormality, No Abnormality Assessed, Assessed Erythema,Palor -Temperature (Bev-wound Skin No Abnormality No Abnormality No Abnormality Appearance) (Pt Warm) (Pt Warm) (Pt Warm) -Tenderness on Palpation (Bev-wound No No No Skin Appearance) -Ulcer Cleansing Rinsed/ Soap and Water Soap and Water Irrigated with Saline -Foul Odor after Cleansing No No No -Anesthetic Used 4% Lidocaine 5% Lidocaine 4% Lidocaine Solution Gel Solution Lower Limb Edema Present Yes Left Calf (cm) 40 Left Ankle (cm) 24.5 10/28/21 08:41 Wound Center Nurse 1 #3 L Grt toe base -Combined with other wound No -Current Size (cm) - Length 0.6 -Current Size (cm) - Width 0.7 -Current Size (cm) - Depth 0.2 -Total Square Cm 0.42 -Date of Last Picture (Recall this 10/28/21 field) -Photo Taken No -Epithelialization None Present -Tunneling No -Undermining/Tunneling No -Circular Undermining No -Exudate Amt Small -Exudate Type Serosanguineous -Wound Margin Flat & Intact -Granulation Amt None Present (0 %) -Granulation Quality N/A -Slough/Fibrin -Necrosis Amt Large (67-100%) -Necrotic Tissue Type Adherent Slough -Structure Exposed N/A -Texture (Bev-wound Skin Appearance) Assessed,Callus -Moisture (Bev-wound Skin Appearance) Assessed,Dry/ Scaly -Color (Bev-wound Skin Appearance) No Abnormality, Assessed -Temperature (Bev-wound Skin No Abnormality Appearance) (Pt Warm) -Tenderness on Palpation (Bev-wound No Skin Appearance) -Ulcer Cleansing Rinsed/ Irrigated with Saline -Foul Odor after Cleansing No -Anesthetic Used 5% Lidocaine Gel Lower Limb Edema Present No Left Calf (cm) Left Ankle (cm) WC - Nurse 2 - General Ulcer CM Notes Start: 10/07/21 09:38 Freq: Status: Active Protocol: Activity Type Activity Date Activity User E-Sign Co-Sign Detail Recorded Client Recorded Date Recorded By Document 10/07/21 09:44 [id number] 10/07/21 09:51 Document 10/16/21 10:21 [id number] 10/16/21 10:24 Document 10/21/21 10:33 [id number] 10/22/21 07:35 Document 10/28/21 08:58 [id number] 10/28/21 09:01 10/07/21 10/16/21 10/21/21 09:44 10:21 10:33 Wound Center Nurse 2 #3 L Grt toe base -Time 09:44 10:22 07:33 -Correct Patient Yes Yes Yes -Correct Side, Site, Position Yes Yes Yes -Correct Procedure Yes Yes Yes -Procedure Performed Yes Yes Yes -Type of Procedure Debridement Debridement Debridement -Clinical Debridement Subcutaneous Subcutaneous Subcutaneous -Tissue Removed Subcutaneous Subcutaneous Subcutaneous -Post Debridement (cm) - Length 1.0 0.6 0.5 -Post Debridement (cm) - Width 0.9 0.7 0.5 -Post Debridement (cm) - Depth 0.2 0.3 0.2 -Total Square (Post) (cm) 0.90 0.42 0.25 -Area of Debridement (cm) - Length 1.0 0.6 0.5 -Area of Debridement (cm) - Width 0.9 0.7 0.5 -Total Square (Area) (cm) 0.90 0.42 0.25 -Tunneling No No No -Undermining/Tunneling No No No -Circular Undermining No No No -Wound/Ulcer Outcome Not Healed Not Healed Not Healed -Ulcer Cleansing Rinsed/ Rinsed/ Rinsed/ Irrigated with Irrigated with Irrigated with Saline Saline Saline -Foul Odor after Cleansing No No No -Bioengineered Tissue No No No -Bleeding Controlled with Pressure Pressure Pressure -Treatment Response Procedure Procedure Procedure Tolerated Well Tolerated Well Tolerated Well -Offloading Yes No Yes -Type of Offloading Total Contact Total Contact Camwalker Cast (TCC) - Cast (TCC) - Left ($) Left ($) -Debridement - Subq, 1st 20sq cm Yes Yes Yes Pain Scale: 0-10 Numeric Is Patient Pain Free? Yes Yes Yes 10/28/21 08:58 Wound Center Nurse 2 #3 L Grt toe base -Time 08:58 -Correct Patient Yes -Correct Side, Site, Position Yes -Correct Procedure Yes -Procedure Performed Yes -Type of Procedure Debridement -Clinical Debridement Subcutaneous -Tissue Removed Subcutaneous -Post Debridement (cm) - Length 0.8 -Post Debridement (cm) - Width 0.9 -Post Debridement (cm) - Depth 0.2 -Total Square (Post) (cm) 0.72 -Area of Debridement (cm) - Length 0.8 -Area of Debridement (cm) - Width 0.9 -Total Square (Area) (cm) 0.72 -Tunneling No -Undermining/Tunneling No -Circular Undermining No -Wound/Ulcer Outcome Not Healed -Ulcer Cleansing Rinsed/ Irrigated with Saline -Foul Odor after Cleansing No -Bioengineered Tissue No -Bleeding Controlled with Pressure -Treatment Response Procedure Tolerated Well -Offloading Yes -Type of Offloading Total Contact Cast (TCC) - Left ($) -Debridement - Subq, 1st 20sq cm Yes Pain Scale: 0-10 Numeric Is Patient Pain Free? Yes - Nurse 3 - General Ulcer D/C NN Start: 10/07/21 09:38 Freq: Status: Active Protocol: Activity Type Activity Date Activity User E-Sign Co-Sign Detail Recorded Client Recorded Date Recorded By Document 10/07/21 09:59 [facility] [id number] 10/07/21 10:00 BMF Document 10/16/21 10:30 MW [id number] 10/16/21 10:32 MW Document 10/21/21 10:22 BM [id number] 10/21/21 10:23 BMF 10/07/21 10/16/21 10/21/21 09:59 10:30 10:22 Wound Care Nurse 3 #3 L Grt toe base -Ulcer Cleansing Rinsed/ Rinsed/ Rinsed/ Irrigated with Irrigated with Irrigated with Saline Saline Saline -Foul Odor after Cleansing No No -Primary Dressing Applied Aquacel AG 2x2 Aquacel AG 4x4 Aquacel AG 2x2 -Other Dressing xtrasorb, tcc SUPER ABSORBANT undercast applied per kr highway painter -Primary Dressing Covered/Secured with Dry Gauze & Roll Gauze, Secured with Tape -Other Covering TCC DRSG PER [place] [employer] CONTROL REPRESENTATIVE -Aquacel AG 4x4 1 -Aquacel AG 2x2 1 1 Left -Lotion applied to leg before No compression wrap -Other TCC Treatment Response Procedure Procedure Procedure Tolerated Well Tolerated Well Tolerated Well Pain Scale: 0-10 Numeric Is Patient Pain Free? Yes Yes Yes Teaching: Wound Center Dressing Your Wound -Person Taught Patient -Teaching Method Discussion -Response to teaching Verbalize understanding WC - Visit Discharge Discharge Condition Stable Stable Stable Ambulatory Status Ambulatory Ambulatory Wheelchair Transportation Private Auto Private Auto Private Auto Accompanied by SELF Medication Reconcilliation completed & No provided to patient/care provider Clinical Summary of Care Provided Yes Assessment/Plan Assessment/Plan (1) Non-pressure chronic ulcer of other part of left foot limited to breakdown of skin: CODE(S): L97.521 - Non-pressure chronic ulcer of other part of left foot limited to breakdown of skin PLAN: Patient examined evaluated, all findings cussed with patient in detail. Wound culture was reviewed demonstrated growth of Pseudomonas aeruginosa staff aureus staph stimulants Enterococcus faecalis and corynebacterium striatum. Patient currently taking doxycycline 100 mg daily with 750 mg ciprofloxacin twice daily. We will consider addition of Augmentin if there is no continued improvement on next visit. Wound was excisionally debrided down to including level of subcutaneous tissue of all nonviable tissue using a combination of tissue nippers and 5 mm dermal curette. No anesthesia required due to diabetic neuropathy. Hemostasis obtained with light compression. Patient tolerated procedure well. An epi fix graft was applied to the wound site and moisten so that adhered to the wound bed. This was an 18 mm epi fix graft which is 3 billing units expires on expires on 08/05/2026. Integra graft was used no waste. Graft was stabilized with overlying Adaptic and Steri-Strips. Wound was dressed with DSD and compression with Tubigrip. Total contact cast was applied to the left lower extremity to keep offloaded. Patient will continue his oral antibiotics and follow-up in 1 week to evaluate healing progress. (2) Diabetic neuropathy: CODE(S): E11.40 - Type 2 diabetes mellitus with diabetic neuropathy, unspecified QUALIFIERS: Diabetes mellitus type: type 2 Diabetes mellitus complication detail: diabetic polyneuropathy Qualified Code(s): E11.42 - Type 2 diabetes mellitus with diabetic polyneuropathy
[2021-10-28 09:52] VITALS: BP 232/126; PULSE 84; BMI 38.2
--- NOTE | 2021-10-28 10:00 | WC ---
Patient arrived today with extreme HTN. Multiple readings obtained and documented. Manual and machine reading obtained on both arms. Patient denies any chest pain, numbness, headache. States he can usually tell when his BP is high but not experiencing those symptoms currently. Dr Rodriguez notified of readings and strongly advises patient to report to the local ER. Please reference BP readings in nurses' charting. Patient verbalizes understanding of the importance of getting the BP checked out. Patient states he will go to the [facility] ER. Patient ambulated to vehicle without difficulty.
== END 2021-11-01 23:59 | disposition home or self-care (01) ==
LOC: WC 08:45
PROVIDERS: PCP Family Medicine; Visit Provider Podiatrist
DX: E11.621 Type 2 diabetes mellitus with foot ulcer (principal); L97.521 Non-pressure chronic ulcer of other part of left foot limited to breakdown of skin; E11.40 Type 2 diabetes mellitus with diabetic neuropathy, unspecified; Z79.4 Long term (current) use of insulin; R60.0 Localized edema
CPT/HCPCS: 11042; 15275; 29445; 87070; 87075; 87077; 87186; 87205; Q4186

== ENCOUNTER 2021-12-02 08:45 | Outpatient (RCR) | payer OTHER, SELFPAY ==
[2021-11-02 00:36] VITALS: BP 232/126; PULSE 84; RESP 18; TEMP 35.7; BMI 38.2
[2021-11-04 08:40] VITALS: BP 201/106; PULSE 95; RESP 18; TEMP 36.4; BMI 38.2
--- NOTE | 2021-11-04 09:25 | PN.PCM_ITS ---
History of Present Illness Date of Service: 11/04/21 Chief Complaint: Left second toe wound Cellulitis-resolving osteomyelitis left 2nd toe History of Wound: Patient follows up chronic ulceration to the left hallux. Patient denies constitutional symptoms. Patient is now motivated to progress in the wound healing process. He has improved his diet. He has improved his ability to immobilize his foot on the left side. Patient is taking. Off from work in order to get this wound healed. Denies any changes. Patient currently taking p.o. doxycycline and ciprofloxacin as his wound demonstrates some significant drainage with maceration after he got the dressing wet on his previous visit. Patient has no pain to wound site. Recent A1c was 9.8. Patient has no other complaints at this time. Patient dressing the site daily with silver alginate and DSD, attempting to offload with a Cam walking boot. Objective Data Objective Data Vital Signs: Vital Signs Temp Pulse Resp BP 97.6 F L 95 18 201/106 H 11/04/21 08:40 11/04/21 08:40 11/04/21 08:40 11/04/21 08:40 Oxygen Delivery Method Room Air Weight: 131.696 kg Body Mass Index (BMI) 38.2 Physical Exam Narrative Patient alert oriented to person place and time. Vascular: Dorsalis pedis posterior tibial pulses palpable 2 out of 4 to bilateral lower extremity compartments. Digital hair growth noted. Capillary fill time brisk to lesser digits. Mild edema noted to left forefoot. No focal increase in warmth. Neurologic: Light touch protective sensation absent to bilateral feet. Dermatologic: Full-thickness ulceration noted to the plantar aspect of the left hallucal IPJ. Significant periwound hyperkeratosis undermining. Pre and post debridement measurements documented with nursing notes. No signs of infection. Mild periwound edema. No fluctuance crepitus noted to the periwound areas. Maceration and drainage has resolved. Still no deep probing or concern for deep abscess. Toe is warm upon palpation. Wound still looks improved at this time. Musculoskeletal: Hallux rigidus noted to the left big toe. Skin is contributing to wound formation. No pain with calf squeeze. Muscular strength full to bilateral lower extremity compartments. Debridement Note Debridement Note Post-Debridement Measurements and Additional Note: Post-Debridement Measurements/Treatment WC - Nurse 1 - General Ulcer Assessment Start: 11/04/21 08:40 Freq: Status: Active Protocol: CASSIE Activity Type Activity Date Activity User E-Sign Co-Sign Detail Recorded Client Recorded Date Recorded By Document 11/04/21 08:40 MW [id number] 11/04/21 08:54 MW 11/04/21 08:40 - Today's Visit Information Type of service Follow-up Visit (Physician/[facility] ) Arrival Mode Ambulatory Transfer Assistance None Accompanied by self Patient Identification Verified (Name & Yes ) Patient Requires Transmission-Based No Precautions Safety Precautions NA Height and Weight Body Mass Index (BMI) 38.2 BMI Classification Obese Vital Signs Temperature (97.8 F-99.1 F) 97.6 F L Temperature Source Temporal Pulse Rate (60-100) 95 Pulse Location Monitor Respiratory Rate (12-18) 18 Respiratory rate source Observation Oxygen Delivery Method Room Air Blood Pressure (90/60-120/80) 201/106 H Blood Pressure Mean (mm Hg) 137 Source Monitor Position Sitting Blood Pressure Location Right Arm Comment will update cm and dr on bp History Since Last Visit- (Skip if this is Patient's initial visit) Have you changed medications since your No last visit? Any new allergies or adverse reactions No Had a fall/change in ADL's that may No increase risk of falls Signs or symptoms of abuse and/or No neglect since last visit Have you been in the hospital since your No last visit? Has dressing in place as prescribed Yes Has compression in place as prescribed Yes Has offloadiing in place as prescribed N/A Experienced any changes in pain level or No management Left Footwear Total Contact Cast Right Footwear Regular Shoe Pain Scale: 0-10 Numeric Is Patient Pain Free? Yes - Nurse 1 - General Ulcer Measurement Start: 11/04/21 08:40 Freq: Status: Active Protocol: Activity Type Activity Date Activity User E-Sign Co-Sign Detail Recorded Client Recorded Date Recorded By Document 11/04/21 08:40 MW [id number] 11/04/21 08:54 MW 11/04/21 08:40 Wound Center Nurse 1 #3 L Grt toe base -Combined with other wound No -Current Size (cm) - Length 0.3 -Current Size (cm) - Width 0.3 -Current Size (cm) - Depth 0.1 -Total Square Cm 0.09 -Epithelialization Small 1-33% -Tunneling No -Undermining/Tunneling No -Circular Undermining No -Exudate Amt Medium -Exudate Type Serous -Wound Margin Distinct, Outline Attached -Granulation Amt Medium (34-66%) -Granulation Quality [place] -Slough/Fibrin Yes -Necrosis Amt Medium (34-66%) -Necrotic Tissue Type Adherent Slough -Texture (Bev-wound Skin Appearance) Assessed,Callus -Moisture (Bev-wound Skin Appearance) Assessed -Color (Bev-wound Skin Appearance) Assessed -Temperature (Bev-wound Skin No Abnormality Appearance) (Pt Warm) -Tenderness on Palpation (Bev-wound No Skin Appearance) -Ulcer Cleansing Soap and Water -Foul Odor after Cleansing No -Anesthetic Used 5% Lidocaine Gel Lower Limb Edema Present Yes Left Calf (cm) 42 Left Ankle (cm) 25.7 WC - Nurse 2 - General Ulcer CM Notes Start: 11/04/21 08:40 Freq: Status: Active Protocol: Activity Type Activity Date Activity User E-Sign Co-Sign Detail Recorded Client Recorded Date Recorded By Document 11/04/21 09:15 [id number] 11/04/21 09:24 11/04/21 09:15 Wound Center Nurse 2 #3 L Grt toe base -Time 09:15 -Correct Patient Yes -Correct Side, Site, Position Yes -Correct Procedure Yes -Procedure Performed Yes -Type of Procedure Debridement -Clinical Debridement Subcutaneous -Tissue Removed Subcutaneous -Post Debridement (cm) - Length 0.6 -Post Debridement (cm) - Width 0.7 -Post Debridement (cm) - Depth 0.2 -Total Square (Post) (cm) 0.42 -Area of Debridement (cm) - Length 0.6 -Area of Debridement (cm) - Width 0.7 -Total Square (Area) (cm) 0.42 -Tunneling No -Undermining/Tunneling No -Circular Undermining No -Wound/Ulcer Outcome Not Healed -Ulcer Cleansing Rinsed/ Irrigated with Saline -Foul Odor after Cleansing No -Bioengineered Tissue Yes -Type of Bioengineered Tissue Epifix 18mm Disc -Expiration Date 08/05/26 -Product Lot Number [id number] -Percent Used 100 -Lot number of Saline Used [id number] -Bleeding Controlled with Pressure -Treatment Response Procedure Tolerated Well -Offloading Yes -Type of Offloading Camwalker -Debridement - Subq, 1st 20sq cm No -Apply Skin Sub - 1st 25 sq cm - Feet 1 -Epifix 18mm Disc 3 Pain Scale: 0-10 Numeric Is Patient Pain Free? Yes Assessment/Plan Assessment/Plan (1) Non-pressure chronic ulcer of other part of left foot limited to breakdown of skin: CODE(S): L97.521 - Non-pressure chronic ulcer of other part of left foot limited to breakdown of skin PLAN: Patient examined evaluated, all findings cussed with patient in detail. Wound culture was reviewed demonstrated growth of Pseudomonas aeruginosa staff aureus staph stimulants Enterococcus faecalis and corynebacterium striatum. Patient to finish taking doxycycline 100 mg daily with 750 mg ciprofloxacin twice daily. Wound improving significantly. Wound was excisionally debrided down to including level of subcutaneous tissue of all nonviable tissue using a combination of tissue nippers and 5 mm dermal curette. No anesthesia required due to diabetic neuropathy. Hemostasis obtai dhaval with light compression. Patient tolerated procedure well. An epi fix graft was applied to the wound site and moisten so that adhered to the wound bed. This was an 18 mm epi fix graft which is 3 billing units expires on expires on 08/05/2026. Entire graft was used no waste. Graft was stabilized with overlying Adaptic and Steri-Strips. Wound was dressed with DSD and compression with Tubigrip. Patient refusing TCC at this time, will offload with cam walking boot. Discussed risks of this in detail. Patient's blood pressure remains high, I have again recommend ED evaluation as he did not go to the ED last week. He states he will call his PCP. Follow up in 1 week, wound improving very well. (2) Diabetic neuropathy: CODE(S): E11.40 - Type 2 diabetes mellitus with diabetic neuropathy, unspecified QUALIFIERS: Diabetes mellitus type: type 2 Diabetes mellitus complication detail: diabetic polyneuropathy Qualified Code(s): E11.42 - Type 2 diabetes mellitus with diabetic polyneuropathy
[2021-11-11 08:41] VITALS: BP 161/87; PULSE 102; RESP 16; TEMP 36.6; BMI 38.2
--- NOTE | 2021-11-11 09:04 | PN.PCM_ITS ---
History of Present Illness Date of Service: 11/11/21 Chief Complaint: Left second toe wound Cellulitis-resolving osteomyelitis left 2nd toe History of Wound: Patient follows up chronic ulceration to the left hallux. Patient denies constitutional symptoms. Patient is now motivated to progress in the wound healing process. He has improved his diet. He has improved his ability to immobilize his foot on the left side. Patient is taking. Off from work in order to get this wound healed. Denies any changes. Patient currently taking p.o. doxycycline and ciprofloxacin as his wound demonstrates some significant drainage with maceration after he got the dressing wet on his previous visit. Patient has no pain to wound site. Recent A1c was 9.8. Patient has no other complaints at this time. Patient dressing the site daily with silver alginate and DSD, attempting to offload with a Cam walking boot. Objective Data Objective Data Vital Signs: Vital Signs Temp Pulse Resp BP 97.8 F 102 H 16 161/87 H 11/11/21 08:41 11/11/21 08:41 11/11/21 08:41 11/11/21 08:41 Oxygen Delivery Method Room Air Weight: 131.696 kg Body Mass Index (BMI) 38.2 Physical Exam Narrative Patient alert oriented to person place and time. Vascular: Dorsalis pedis posterior tibial pulses palpable 2 out of 4 to bilateral lower extremity compartments. Digital hair growth noted. Capillary fill time brisk to lesser digits. Mild edema noted to left forefoot. No focal increase in warmth. Neurologic: Light touch protective sensation absent to bilateral feet. Dermatologic: Full-thickness ulceration noted to the plantar aspect of the left hallucal IPJ. Significant periwound hyperkeratosis undermining. Pre and post debridement measurements documented with nursing notes. No signs of infection. Mild periwound edema. No fluctuance crepitus noted to the periwound areas. Maceration and drainage has resolved. Still no deep probing or concern for deep abscess. Toe is warm upon palpation. Wound still looks improved at this time. Musculoskeletal: Hallux rigidus noted to the left big toe. Skin is contributing to wound formation. No pain with calf squeeze. Muscular strength full to bilateral lower extremity compartments. Debridement Note Debridement Note Post-Debridement Measurements and Additional Note: Post-Debridement Measurements/Treatment WC - Nurse 1 - General Ulcer Assessment Start: 11/04/21 08:40 Freq: Status: Active Protocol: CASSIE Activity Type Activity Date Activity User E-Sign Co-Sign Detail Recorded Client Recorded Date Recorded By Document 11/04/21 08:40 MW [id number] 11/04/21 08:54 MW Document 11/11/21 08:41 [facility] [id number] 11/11/21 08:44 BM 11/04/21 11/11/21 08:40 08:41 - Today's Visit Information Type of service Follow-up Visit Follow-up Visit (Physician/METAL MIXER (Physician/METAL MIXER ) ) Arrival Mode Ambulatory Ambulatory Transfer Assistance None None Accompanied by self Patient Identification Verified (Name & Yes Yes ) Patient Requires Transmission-Based No No Precautions Safety Precautions NA Height and Weight Body Mass Index (BMI) 38.2 38.2 BMI Classification Obese Obese Vital Signs Temperature (97.8 F-99.1 F) 97.6 F L 97.8 F Temperature Source Temporal Temporal Pulse Rate (60-100) 95 102 H Pulse Location Monitor Monitor Respiratory Rate (12-18) 18 16 Respiratory rate source Observation Observation Oxygen Delivery Method Room Air Room Air Blood Pressure (90/60-120/80) 201/106 H 161/87 H Blood Pressure Mean (mm Hg) 137 111 Source Monitor Monitor Position Sitting Sitting Blood Pressure Location Right Arm Left Arm Comment will update cm and dr on bp History Since Last Visit- (Skip if this is Patient's initial visit) Have you changed medications since your No No last visit? Any new allergies or adverse reactions No No Had a fall/change in ADL's that may No No increase risk of falls Signs or symptoms of abuse and/or No No neglect since last visit Have you been in the hospital since your No No last visit? Has dressing in place as prescribed Yes Yes Has compression in place as prescribed Yes N/A Has offloadiing in place as prescribed N/A No Experienced any changes in pain level or No No management Left Footwear Total Contact Regular Shoe Cast Right Footwear Regular Shoe Regular Shoe Pain Scale: 0-10 Numeric Is Patient Pain Free? Yes Yes - Nurse 1 - General Ulcer Measurement Start: 11/04/21 08:40 Freq: Status: Active Protocol: Activity Type Activity Date Activity User E-Sign Co-Sign Detail Recorded Client Recorded Date Recorded By Document 11/04/21 08:40 MW [id number] 11/04/21 08:54 MW Document 11/11/21 08:41 [facility] [id number] 11/11/21 08:44 [facility] 11/04/21 11/11/21 08:40 08:41 Wound Center Nurse 1 #3 L Grt toe base -Combined with other wound No No -Current Size (cm) - Length 0.3 0.5 -Current Size (cm) - Width 0.3 0.3 -Current Size (cm) - Depth 0.1 0.2 -Total Square Cm 0.09 0.15 -Photo Taken No -Epithelialization Small 1-33% Small 1-33% -Tunneling No No -Undermining/Tunneling No No -Circular Undermining No No -Exudate Amt Medium Medium -Exudate Type Serous Serosanguineous -Wound Margin Distinct, Distinct, Outline Outline Attached Attached -Granulation Amt Medium (34-66%) Large (67-100%) -Granulation Quality [place] Red -Slough/Fibrin Yes No -Necrosis Amt Medium (34-66%) None Present (0 %) -Necrotic Tissue Type Adherent Slough -Texture (Bev-wound Skin Appearance) Assessed,Callus Assessed -Moisture (Bev-wound Skin Appearance) Assessed Assessed, Maceration -Color (Bev-wound Skin Appearance) Assessed Assessed,Palor -Temperature (Bev-wound Skin No Abnormality No Abnormality Appearance) (Pt Warm) (Pt Warm) -Tenderness on Palpation (Bev-wound No No Skin Appearance) -Ulcer Cleansing Soap and Water Soap and Water -Foul Odor after Cleansing No No -Anesthetic Used 5% Lidocaine 4% Lidocaine Gel Solution Lower Limb Edema Present Yes Left Calf (cm) 42 Left Ankle (cm) 25.7 WC - Nurse 2 - General Ulcer CM Notes Start: 11/04/21 08:40 Freq: Status: Active Protocol: Activity Type Activity Date Activity User E-Sign Co-Sign Detail Recorded Client Recorded Date Recorded By Document 11/04/21 09:15 HELIO [id number] 11/04/21 09:24 Document 11/11/21 08:52 [id number] 11/11/21 09:00 11/04/21 11/11/21 09:15 08:52 Wound Center Nurse 2 #3 L Grt toe base -Time 09:15 08:52 -Correct Patient Yes Yes -Correct Side, Site, Position Yes Yes -Correct Procedure Yes Yes -Procedure Performed Yes Yes -Type of Procedure Debridement Debridement -Clinical Debridement Subcutaneous Subcutaneous -Tissue Removed Subcutaneous Subcutaneous -Post Debridement (cm) - Length 0.6 0.6 -Post Debridement (cm) - Width 0.7 0.5 -Post Debridement (cm) - Depth 0.2 0.3 -Total Square (Post) (cm) 0.42 0.30 -Area of Debridement (cm) - Length 0.6 0.6 -Area of Debridement (cm) - Width 0.7 0.5 -Total Square (Area) (cm) 0.42 0.30 -Tunneling No No -Undermining/Tunneling No No -Circular Undermining No No -Wound/Ulcer Outcome Not Healed Not Healed -Ulcer Cleansing Rinsed/ Rinsed/ Irrigated with Irrigated with Saline Saline -Foul Odor after Cleansing No No -Bioengineered Tissue Yes Yes -Type of Bioengineered Tissue Epifix 18mm Epifix 18mm Disc Disc -Expiration Date 08/05/26 08/05/26 -Product Lot Number [id number] -Percent Used 100 100 -Lot number of Saline Used [id number] -Bleeding Controlled with Pressure Pressure -Treatment Response Procedure Procedure Tolerated Well Tolerated Well -Offloading Yes Yes -Type of Offloading Camwalker Total Contact Cast (TCC) - Left ($) -Debridement - Subq, 1st 20sq cm No No -Apply Skin Sub - 1st 25 sq cm - Feet 1 1 -Epifix 18mm Disc 3 3 Pain Scale: 0-10 Numeric Is Patient Pain Free? Yes Yes WC - Nurse 3 - General Ulcer D/C NN Start: 11/04/21 08:40 Freq: Status: Active Protocol: Activity Type Activity Date Activity User E-Sign Co-Sign Detail Recorded Client Recorded Date Recorded By Document 11/04/21 09:26 [facility] [id number] 11/04/21 09:28 [facility] Document 11/11/21 09:01 [id number] 11/11/21 09:03 MW 11/04/21 11/11/21 09:26 09:01 Wound Care Nurse 3 #3 L Grt toe base -Ulcer Cleansing Not Cleansed -Foul Odor after Cleansing No -Negative Pressure Wound Therapy N/A -Primary Dressing Applied Mepilex Border -Other Dressing epifix super absorbant -Primary Dressing Covered/Secured with Secured with Tape -Other Covering drsg per mw rn TCC -Mepilex Border 1 Left -Lotion applied to leg before No compression wrap -Other TCC Treatment Response Procedure Procedure Tolerated Well Tolerated Well Pain Scale: 0-10 Numeric Is Patient Pain Free? Yes Yes Teaching: Wound Center Dressing Your Wound -Person Taught Patient -Teaching Method Discussion -Response to teaching Verbalize understanding WC - Visit Discharge Discharge Condition Stable Stable Ambulatory Status Wheelchair Ambulatory Transportation Private Auto Private Auto Accompanied by self Medication Reconcilliation completed & No provided to patient/care provider Clinical Summary of Care Provided Yes Assessment/Plan Assessment/Plan (1) Non-pressure chronic ulcer of other part of left foot limited to breakdown of skin: CODE(S): L97.521 - Non-pressure chronic ulcer of other part of left foot limited to breakdown of skin PLAN: Patient examined evaluated, all findings cussed with patient in detail. Wound culture was reviewed demonstrated growth of Pseudomonas aeruginosa staff aureus staph stimulants Enterococcus faecalis and corynebacterium striatum. Patient to finish taking doxycycline 100 mg daily with 750 mg ciprofloxacin twice daily. Wound improving significantly. Wound was excisionally debrided down to including level of subcutaneous tissue of all nonviable tissue using a combination of tissue nippers and 5 mm dermal curette. No anesthesia required due to diabetic neuropathy. Hemostasis obtained with light compression. Patient tolerated procedure well. An epi fix graft was applied to the wound site and moisten so that adhered to the wound bed. This was an 18 mm epi fix graft which is 3 billing units. Entire graft was used no waste. Graft was stabilized with overlying Adaptic and Steri-Strips. Wound was dressed with DSD and compression with Tubigrip. Patient will continue using total contact cast. This was applied today. He will continue oral antibiotics for additional 2 weeks. This is due to some continued drainage to the wound site. Patient's blood pressure has improved. Follow up in 1 week, wound improving very well. (2) Diabetic neuropathy: CODE(S): E11.40 - Type 2 diabetes mellitus with diabetic neuropathy, unspecified QUALIFIERS: Diabetes mellitus type: type 2 Diabetes mellitus complication detail: diabetic polyneuropathy Qualified Code(s): E11.42 - Type 2 diabetes mellitus with diabetic polyneuropathy
[2021-11-18 08:55] VITALS: BP 211/101; PULSE 96; RESP 16; TEMP 36.1; BMI 38.2
--- NOTE | 2021-11-18 09:20 | PCM.WC.PN ---
History of Present Illness Date of Service: 11/18/21 Chief Complaint: Left second toe wound Cellulitis-resolving osteomyelitis left 2nd toe History of Wound: Patient follows up chronic ulceration to the left hallux. Patient denies constitutional symptoms. Patient is now motivated to progress in the wound healing process. He has improved his diet. He has improved his ability to immobilize his foot on the left side. Patient is taking. Off from work in order to get this wound healed. Denies any changes. Patient currently taking p.o. doxycycline and ciprofloxacin as his wound demonstrates some significant drainage with maceration after he got the dressing wet on his previous visit. Patient has no pain to wound site. Recent A1c was 9.8. Patient has no other complaints at this time. Patient dressing the site daily with silver alginate and DSD, attempting to offload with a Cam walking boot. Objective Data Objective Data Vital Signs: Vital Signs Temp Pulse Resp BP 97.0 F L 96 16 211/101 H 11/18/21 08:55 11/18/21 08:55 11/18/21 08:55 11/18/21 08:55 Oxygen Delivery Method Room Air Weight: 131.696 kg Body Mass Index (BMI) 38.2 Physical Exam Narrative Patient alert oriented to person place and time. Vascular: Dorsalis pedis posterior tibial pulses palpable 2 out of 4 to bilateral lower extremity compartments. Digital hair growth noted. Capillary fill time brisk to lesser digits. Mild edema noted to left forefoot. No focal increase in warmth. Neurologic: Light touch protective sensation absent to bilateral feet. Dermatologic: Full-thickness ulceration noted to the plantar aspect of the left hallucal IPJ. Significant periwound hyperkeratosis undermining. Pre and post debridement measurements documented with nursing notes. No signs of infection. Mild periwound edema. No fluctuance crepitus noted to the periwound areas. Maceration and drainage has resolved. Still no deep probing or concern for deep abscess. Toe is warm upon palpation. Wound still looks improved at this time. Musculoskeletal: Hallux rigidus noted to the left big toe. Skin is contributing to wound formation. No pain with calf squeeze. Muscular strength full to bilateral lower extremity compartments. Debridement Note Debridement Note Post-Debridement Measurements and Additional Note: Post-Debridement Measurements/Treatment WC - Nurse 1 - General Ulcer Assessment Start: 11/04/21 08:40 Freq: Status: Active Protocol: WC.LOWEXT Activity Type Activity Date Activity User E-Sign Co-Sign Detail Recorded Client Recorded Date Recorded By Document 11/04/21 08:40 MW [id number] 11/04/21 08:54 MW Document 11/11/21 08:41 [facility] [id number] 11/11/21 08:44 BMF Document 11/18/21 08:55 MW [id number] 11/18/21 09:02 11/04/21 11/11/21 11/18/21 08:40 08:41 08:55 - Today's Visit Information Type of service Follow-up Visit Follow-up Visit Follow-up Visit (Physician/CATERPILLAR OPERATOR (Physician/CATERPILLAR OPERATOR (Physician/CATERPILLAR OPERATOR ) ) ) Arrival Mode Ambulatory Ambulatory Ambulatory Transfer Assistance None None None Accompanied by self self Patient Identification Verified (Name & Yes Yes Yes ) Patient Requires Transmission-Based No No No Precautions Safety Precautions NA NA Height and Weight Body Mass Index (BMI) 38.2 38.2 38.2 BMI Classification Obese Obese Obese Vital Signs Temperature (97.8 F-99.1 F) 97.6 F L 97.8 F 97.0 F L Temperature Source Temporal Temporal Temporal Pulse Rate (60-100) 95 102 H 96 Pulse Location Monitor Monitor Respiratory Rate (12-18) 18 16 16 Respiratory rate source Observation Observation Observation Oxygen Delivery Method Room Air Room Air Room Air Blood Pressure (90/60-120/80) 201/106 H 161/87 H 211/101 H Blood Pressure Mean (mm Hg) 137 111 137 Source Monitor Monitor Monitor Position Sitting Sitting Semi-Fowlers Blood Pressure Location Right Arm Left Arm Left Arm Comment will update cm and on bp History Since Last Visit- (Skip if this is Patient's initial visit) Have you changed medications since your No No No last visit? Any new allergies or adverse reactions No No No Had a fall/change in ADL's that may No No No increase risk of falls Signs or symptoms of abuse and/or No No No neglect since last visit Have you been in the hospital since your No No No last visit? Has dressing in place as prescribed Yes Yes Yes Has compression in place as prescribed Yes N/A Yes Has offloadiing in place as prescribed N/A No Yes Experienced any changes in pain level or No No No management Left Footwear Total Contact Regular Shoe Total Contact Cast Cast Right Footwear Regular Shoe Regular Shoe Regular Shoe Pain Scale: 0-10 Numeric Is Patient Pain Free? Yes Yes Yes WC - Nurse 1 - General Ulcer Measurement Start: 11/04/21 08:40 Freq: Status: Active Protocol: Activity Type Activity Date Activity User E-Sign Co-Sign Detail Recorded Client Recorded Date Recorded By Document 11/04/21 08:40 MW [id number] 11/04/21 08:54 MW Document 11/11/21 08:41 BMF [id number] 11/11/21 08:44 BMF Document 11/18/21 08:55 MW [id number] 11/18/21 09:02 MW 11/04/21 11/11/21 11/18/21 08:40 08:41 08:55 Wound Center Nurse 1 #3 L Grt toe base -Combined with other wound No No No -Current Size (cm) - Length 0.3 0.5 0.2 -Current Size (cm) - Width 0.3 0.3 0.2 -Current Size (cm) - Depth 0.1 0.2 0.1 -Total Square Cm 0.09 0.15 0.04 -Date of Last Picture (Recall this 11/18/21 field) -Photo Taken No Yes -Epithelialization Small 1-33% Small 1-33% None Present -Tunneling No No No -Undermining/Tunneling No No No -Circular Undermining No No No -Exudate Amt Medium Medium Small -Exudate Type Serous Serosanguineous Serosanguineous -Wound Margin Distinct, Distinct, Flat & Intact Outline Outline Attached Attached -Granulation Amt Medium (34-66%) Large (67-100%) None Present (0 %) -Granulation Quality [place] Red N/A -Slough/Fibrin Yes No Yes -Necrosis Amt Medium (34-66%) None Present (0 Large (67-100%) %) -Necrotic Tissue Type Adherent Slough Adherent Slough -Structure Exposed N/A -Texture (Bev-wound Skin Appearance) Assessed,Callus Assessed Assessed,Callus -Moisture (Bev-wound Skin Appearance) Assessed Assessed, No Abnormality, Maceration Assessed -Color (Bev-wound Skin Appearance) Assessed Assessed,Palor No Abnormality, Assessed -Temperature (Bev-wound Skin No Abnormality No Abnormality No Abnormality Appearance) (Pt Warm) (Pt Warm) (Pt Warm) -Tenderness on Palpation (Bev-wound No No Yes Skin Appearance) -Ulcer Cleansing Soap and Water Soap and Water -Foul Odor after Cleansing No No No -Anesthetic Used 5% Lidocaine 4% Lidocaine 5% Lidocaine Gel Solution Gel Lower Limb Edema Present Yes No Left Calf (cm) 42 42.1 Left Ankle (cm) 25.7 24.5 WC - Nurse 2 - General Ulcer CM Notes Start: 11/04/21 08:40 Freq: Status: Active Protocol: Activity Type Activity Date Activity User E-Sign Co-Sign Detail Recorded Client Recorded Date Recorded By Document 11/04/21 09:15 [id number] 11/04/21 09:24 Document 11/11/21 08:52 [id number] 11/11/21 09:00 Document 11/18/21 09:10 [id number] 11/18/21 09:16 11/04/21 11/11/21 11/18/21 09:15 08:52 09:10 Wound Center Nurse 2 #3 L Grt toe base -Time 09:15 08:52 09:15 -Correct Patient Yes Yes Yes -Correct Side, Site, Position Yes Yes Yes -Correct Procedure Yes Yes Yes -Procedure Performed Yes Yes Yes -Type of Procedure Debridement Debridement Debridement -Clinical Debridement Subcutaneous Subcutaneous Subcutaneous -Tissue Removed Subcutaneous Subcutaneous Subcutaneous -Post Debridement (cm) - Length 0.6 0.6 0.3 -Post Debridement (cm) - Width 0.7 0.5 0.3 -Post Debridement (cm) - Depth 0.2 0.3 0.1 -Total Square (Post) (cm) 0.42 0.30 0.09 -Area of Debridement (cm) - Length 0.6 0.6 0.3 -Area of Debridement (cm) - Width 0.7 0.5 0.3 -Total Square (Area) (cm) 0.42 0.30 0.09 -Tunneling No No No -Undermining/Tunneling No No No -Circular Undermining No No No -Wound/Ulcer Outcome Not Healed Not Healed Not Healed -Ulcer Cleansing Rinsed/ Rinsed/ Rinsed/ Irrigated with Irrigated with Irrigated with Saline Saline Saline -Foul Odor after Cleansing No No No -Bioengineered Tissue Yes Yes Yes -Type of Bioengineered Tissue Epifix 18mm Epifix 18mm Epifix 18mm Disc Disc Disc -Expiration Date 08/05/26 08/05/26 07/05/26 -Product Lot Number [id number] -Percent Used 100 100 100 -Lot number of Saline Used [id number] -Bleeding Controlled with Pressure Pressure Pressure -Treatment Response Procedure Procedure Procedure Tolerated Well Tolerated Well Tolerated Well -Offloading Yes Yes Yes -Type of Offloading Camwalker Total Contact Total Contact Cast (TCC) - Cast (TCC) - Left ($) Left ($) -Debridement - Subq, 1st 20sq cm No No No -Apply Skin Sub - 1st 25 sq cm - Feet 1 1 1 -Epifix 18mm Disc 3 3 3 Pain Scale: 0-10 Numeric Is Patient Pain Free? Yes Yes Yes - Nurse 3 - General Ulcer D/C NN Start: 11/04/21 08:40 Freq: Status: Active Protocol: Activity Type Activity Date Activity User E-Sign Co-Sign Detail Recorded Client Recorded Date Recorded By Document 11/04/21 09:26 [facility] [id number] 11/04/21 09:28 [facility] Document 11/11/21 09:01 [id number] 11/11/21 09:03 MW 11/04/21 11/11/21 09:26 09:01 Wound Care Nurse 3 #3 L Grt toe base -Ulcer Cleansing Not Cleansed -Foul Odor after Cleansing No -Negative Pressure Wound Therapy N/A -Primary Dressing Applied Mepilex Border -Other Dressing epifix super absorbant -Primary Dressing Covered/Secured with Secured with Tape -Other Covering drsg per sudheer rn TCC -Mepilex Border 1 Left -Lotion applied to leg before No compression wrap -Other TCC Treatment Response Procedure Procedure Tolerated Well Tolerated Well Pain Scale: 0-10 Numeric Is Patient Pain Free? Yes Yes Teaching: Wound Center Dressing Your Wound -Person Taught Patient -Teaching Method Discussion -Response to teaching Verbalize understanding WC - Visit Discharge Discharge Condition Stable Stable Ambulatory Status Wheelchair Ambulatory Transportation Private Auto Private Auto Accompanied by self Medication Reconcilliation completed & No provided to patient/care provider Clinical Summary of Care Provided Yes Assessment/Plan Assessment/Plan (1) Non-pressure chronic ulcer of other part of left foot limited to breakdown of skin: CODE(S): L97.521 - Non-pressure chronic ulcer of other part of left foot limited to breakdown of skin PLAN: Patient examined evaluated, all findings cussed with patient in detail. Patient off oral antibiotics at this time, no residual signs of infection. Wound was excisionally debrided down to including level of subcutaneous tissue of all nonviable tissue using a combination of tissue nippers and 5 mm dermal curette. No anesthesia required due to diabetic neuropathy. Hemostasis obtained with light compression. Patient tolerated procedure well. An epi fix graft was applied to the wound site and moisten so that adhered to the wound bed. This was an 18 mm epi fix graft which is 3 billing units. Entire graft was used no waste. Graft was stabilized with overlying Adaptic and Steri-Strips. Wound was dressed with DSD and compression with Tubigrip. Patient will continue using total contact cast. This was applied today. He will continue oral antibiotics for additional 2 weeks. This is due to some continued drainage to the wound site. Patient's blood pressure has improved. Follow up in 1 week, wound improving very well. (2) Diabetic neuropathy: CODE(S): E11.40 - Type 2 diabetes mellitus with diabetic neuropathy, unspecified QUALIFIERS: Diabetes mellitus type: type 2 Diabetes mellitus complication detail: diabetic polyneuropathy Qualified Code(s): E11.42 - Type 2 diabetes mellitus with diabetic polyneuropathy
[2021-11-25 08:28] VITALS: BP 184/110; PULSE 107; TEMP 36.2; BMI 38.2
--- NOTE | 2021-11-25 08:53 | PN.PCM_ITS ---
History of Present Illness Date of Service: 11/25/21 Chief Complaint: Left second toe wound Cellulitis-resolving osteomyelitis left 2nd toe History of Wound: Patient follows up chronic ulceration to the left hallux. Patient denies constitutional symptoms. Patient is now motivated to progress in the wound healing process. He has improved his diet. He has improved his ability to immobilize his foot on the left side. Patient is taking. Off from work in order to get this wound healed. Denies any changes. Patient compliant with treatment at this time. Notes that his cast cracked and he is walking well spectating a baseball game. Objective Data Objective Data Vital Signs: Vital Signs Temp Pulse Resp BP 97.2 F L 107 H 16 184/110 H 11/25/21 08:28 11/25/21 08:28 11/18/21 08:55 11/25/21 08:28 Oxygen Delivery Method Room Air Weight: 131.696 kg Body Mass Index (BMI) 38.2 Physical Exam Narrative Patient alert oriented to person place and time. Vascular: Dorsalis pedis posterior tibial pulses palpable 2 out of 4 to bilateral lower extremity compartments. Digital hair growth noted. Capillary fill time brisk to lesser digits. Mild edema noted to left forefoot. No focal increase in warmth. Neurologic: Light touch protective sensation absent to bilateral feet. Dermatologic: Full-thickness ulceration noted to the plantar aspect of the left hallucal IPJ. Significant periwound hyperkeratosis undermining. Pre and post debridement measurements documented with nursing notes. No signs of infection. Mild periwound edema. No fluctuance crepitus noted to the periwound areas. Maceration and drainage has resolved. Still no deep probing or concern for deep abscess. Toe is warm upon palpation. Wound still looks improved at this time. Musculoskeletal: Hallux rigidus noted to the left big toe. Skin is contributing to wound formation. No pain with calf squeeze. Muscular strength full to bilateral lower extremity compartments. Debridement Note Debridement Note Post-Debridement Measurements and Additional Note: Post-Debridement Measurements/Treatment LARISSA - Nurse 1 - General Ulcer Assessment Start: 11/04/21 08:40 Freq: Status: Active Protocol: LARISSA.LOWEXT Activity Type Activity Date Activity User E-Sign Co-Sign Detail Recorded Client Recorded Date Recorded By Document 11/04/21 08:40 MW [id number] 11/04/21 08:54 MW Document 11/11/21 08:41 [facility] [id number] 11/11/21 08:44 BMF Document 11/18/21 08:55 MW [id number] 11/18/21 09:02 MW Document 11/25/21 08:28 AK [id number] 11/25/21 08:32 AK 11/04/21 11/11/21 11/18/21 08:40 08:41 08:55 WC - Today's Visit Information Type of service Follow-up Visit Follow-up Visit Follow-up Visit (Physician/TALENT ACQUISITION ASSISTANT (Physician/TALENT ACQUISITION ASSISTANT (Physician/TALENT ACQUISITION ASSISTANT ) ) ) Arrival Mode Ambulatory Ambulatory Ambulatory Transfer Assistance None None None Accompanied by self self Patient Identification Verified (Name & Yes Yes Yes ) Patient Requires Transmission-Based No No No Precautions Safety Precautions NA NA Height and Weight Body Mass Index (BMI) 38.2 38.2 38.2 BMI Classification Obese Obese Obese Vital Signs Temperature (97.8 F-99.1 F) 97.6 F L 97.8 F 97.0 F L Temperature Source Temporal Temporal Temporal Pulse Rate (60-100) 95 102 H 96 Pulse Location Monitor Monitor Respiratory Rate (12-18) 18 16 16 Respiratory rate source Observation Observation Observation Oxygen Delivery Method Room Air Room Air Room Air Blood Pressure (90/60-120/80) 201/106 H 161/87 H 211/101 H Blood Pressure Mean (mm Hg) 137 111 137 Source Monitor Monitor Monitor Position Sitting Sitting Semi-Fowlers Blood Pressure Location Right Arm Left Arm Left Arm Comment will update cm and dr on bp History Since Last Visit- (Skip if this is Patient's initial visit) Have you changed medications since your No No No last visit? Any new allergies or adverse reactions No No No Had a fall/change in ADL's that may No No No increase risk of falls Signs or symptoms of abuse and/or No No No neglect since last visit Have you been in the hospital since your No No No last visit? Has dressing in place as prescribed Yes Yes Yes Has compression in place as prescribed Yes N/A Yes Has offloadiing in place as prescribed N/A No Yes Experienced any changes in pain level or No No No management Left Footwear Total Contact Regular Shoe Total Contact Cast Cast Right Footwear Regular Shoe Regular Shoe Regular Shoe Pain Scale: 0-10 Numeric Is Patient Pain Free? Yes Yes Yes 11/25/21 08:28 WC - Today's Visit Information Type of service Follow-up Visit (Physician/TALENT ACQUISITION ASSISTANT ) Arrival Mode Ambulatory Transfer Assistance Accompanied by Patient Identification Verified (Name & Yes ) Patient Requires Transmission-Based No Precautions Safety Precautions NA Height and Weight Body Mass Index (BMI) 38.2 BMI Classification Obese Vital Signs Temperature (97.8 F-99.1 F) 97.2 F L Temperature Source Temporal Pulse Rate (60-100) 107 H Pulse Location Monitor Respiratory Rate (12-18) Respiratory rate source Oxygen Delivery Method Blood Pressure (90/60-120/80) 184/110 H Blood Pressure Mean (mm Hg) 134 Source Monitor Position Blood Pressure Location Comment History Since Last Visit- (Skip if this is Patient's initial visit) Have you changed medications since your No last visit? Any new allergies or adverse reactions No Had a fall/change in ADL's that may No increase risk of falls Signs or symptoms of abuse and/or No neglect since last visit Have you been in the hospital since your No last visit? Has dressing in place as prescribed Yes Has compression in place as prescribed Yes Has offloadiing in place as prescribed Yes Experienced any changes in pain level or No management Left Footwear Regular Shoe Right Footwear Removable Cast Walker/Walking Boot Pain Scale: 0-10 Numeric Is Patient Pain Free? Yes - Nurse 1 - General Ulcer Measurement Start: 11/04/21 08:40 Freq: Status: Active Protocol: Activity Type Activity Date Activity User E-Sign Co-Sign Detail Recorded Client Recorded Date Recorded By Document 11/04/21 08:40 MW [id number] 11/04/21 08:54 MW Document 11/11/21 08:41 [facility] [id number] 11/11/21 08:44 BMF Document 11/18/21 08:55 MW [id number] 11/18/21 09:02 MW Document 11/25/21 08:28 AK [id number] 11/25/21 08:32 AK 11/04/21 11/11/21 11/18/21 08:40 08:41 08:55 Wound Center Nurse 1 #3 L Grt toe base -Combined with other wound No No No -Current Size (cm) - Length 0.3 0.5 0.2 -Current Size (cm) - Width 0.3 0.3 0.2 -Current Size (cm) - Depth 0.1 0.2 0.1 -Total Square Cm 0.09 0.15 0.04 -Date of Last Picture (Recall this 11/18/21 field) -Photo Taken No Yes -Epithelialization Small 1-33% Small 1-33% None Present -Tunneling No No No -Undermining/Tunneling No No No -Circular Undermining No No No -Exudate Amt Medium Medium Small -Exudate Type Serous Serosanguineous Serosanguineous -Wound Margin Distinct, Distinct, Flat & Intact Outline Outline Attached Attached -Granulation Amt Medium (34-66%) Large (67-100%) None Present (0 %) -Granulation Quality [place] Red N/A -Slough/Fibrin Yes No Yes -Necrosis Amt Medium (34-66%) None Present (0 Large (67-100%) %) -Necrotic Tissue Type Adherent Slough Adherent Slough -Structure Exposed N/A -Texture (Bev-wound Skin Appearance) Assessed,Callus Assessed Assessed,Callus -Moisture (Bev-wound Skin Appearance) Assessed Assessed, No Abnormality, Maceration Assessed -Color (Bev-wound Skin Appearance) Assessed Assessed,Palor No Abnormality, Assessed -Temperature (Bev-wound Skin No Abnormality No Abnormality No Abnormality Appearance) (Pt Warm) (Pt Warm) (Pt Warm) -Tenderness on Palpation (Bev-wound No No Yes Skin Appearance) -Ulcer Cleansing Soap and Water Soap and Water -Foul Odor after Cleansing No No No -Anesthetic Used 5% Lidocaine 4% Lidocaine 5% Lidocaine Gel Solution Gel Lower Limb Edema Present Yes No Left Calf (cm) 42 42.1 Left Ankle (cm) 25.7 24.5 11/25/21 08:28 Wound Center Nurse 1 #3 L Grt toe base -Combined with other wound No -Current Size (cm) - Length 0.2 -Current Size (cm) - Width 0.1 -Current Size (cm) - Depth 0.2 -Total Square Cm 0.02 -Date of Last Picture (Recall this 11/25/21 field) -Photo Taken Yes -Epithelialization Medium 34-66% -Tunneling No -Undermining/Tunneling No -Circular Undermining No -Exudate Amt Small -Exudate Type Serosanguineous -Wound Margin Distinct, Outline Attached -Granulation Amt Medium (34-66%) -Granulation Quality Pale,[place] -Slough/Fibrin Yes -Necrosis Amt Small (1-33%) -Necrotic Tissue Type Adherent Slough -Structure Exposed N/A -Texture (Bev-wound Skin Appearance) Assessed,Callus -Moisture (Bev-wound Skin Appearance) No Abnormality, Assessed -Color (Bev-wound Skin Appearance) No Abnormality, Assessed -Temperature (Bev-wound Skin No Abnormality Appearance) (Pt Warm) -Tenderness on Palpation (Bev-wound No Skin Appearance) -Ulcer Cleansing Soap and Water -Foul Odor after Cleansing No -Anesthetic Used 4% Lidocaine Solution Lower Limb Edema Present Left Calf (cm) 42.1 Left Ankle (cm) 24.3 WC - Nurse 2 - General Ulcer CM Notes Start: 11/04/21 08:40 Freq: Status: Active Protocol: Activity Type Activity Date Activity User E-Sign Co-Sign Detail Recorded Client Recorded Date Recorded By Document 11/04/21 09:15 [id number] 11/04/21 09:24 Document 11/11/21 08:52 [id number] 11/11/21 09:00 Document 11/18/21 09:10 [id number] 11/18/21 09:16 Document 11/25/21 08:49 [id number] 11/25/21 08:50 11/04/21 11/11/21 11/18/21 09:15 08:52 09:10 Wound Center Nurse 2 #3 L Grt toe base -Time 09:15 08:52 09:15 -Correct Patient Yes Yes Yes -Correct Side, Site, Position Yes Yes Yes -Correct Procedure Yes Yes Yes -Procedure Performed Yes Yes Yes -Type of Procedure Debridement Debridement Debridement -Clinical Debridement Subcutaneous Subcutaneous Subcutaneous -Tissue Removed Subcutaneous Subcutaneous Subcutaneous -Post Debridement (cm) - Length 0.6 0.6 0.3 -Post Debridement (cm) - Width 0.7 0.5 0.3 -Post Debridement (cm) - Depth 0.2 0.3 0.1 -Total Square (Post) (cm) 0.42 0.30 0.09 -Area of Debridement (cm) - Length 0.6 0.6 0.3 -Area of Debridement (cm) - Width 0.7 0.5 0.3 -Total Square (Area) (cm) 0.42 0.30 0.09 -Tunneling No No No -Undermining/Tunneling No No No -Circular Undermining No No No -Wound/Ulcer Outcome Not Healed Not Healed Not Healed -Ulcer Cleansing Rinsed/ Rinsed/ Rinsed/ Irrigated with Irrigated with Irrigated with Saline Saline Saline -Foul Odor after Cleansing No No No -Bioengineered Tissue Yes Yes Yes -Type of Bioengineered Tissue Epifix 18mm Epifix 18mm Epifix 18mm Disc Disc Disc -Expiration Date 08/05/26 08/05/26 07/05/26 -Product Lot Number [id number] -Percent Used 100 100 100 -Lot number of Saline Used [id number] -Bleeding Controlled with Pressure Pressure Pressure -Treatment Response Procedure Procedure Procedure Tolerated Well Tolerated Well Tolerated Well -Offloading Yes Yes Yes -Type of Offloading Camwalker Total Contact Total Contact Cast (TCC) - Cast (TCC) - Left ($) Left ($) -Debridement - Subq, 1st 20sq cm No No No -Apply Skin Sub - 1st 25 sq cm - Feet 1 1 1 -Epifix 18mm Disc 3 3 3 Pain Scale: 0-10 Numeric Is Patient Pain Free? Yes Yes Yes 11/25/21 08:49 Wound Center Nurse 2 #3 L Grt toe base -Time 08:49 -Correct Patient Yes -Correct Side, Site, Position Yes -Correct Procedure Yes -Procedure Performed Yes -Type of Procedure Debridement -Clinical Debridement Subcutaneous -Tissue Removed Subcutaneous -Post Debridement (cm) - Length 0.2 -Post Debridement (cm) - Width 0.3 -Post Debridement (cm) - Depth 0.1 -Total Square (Post) (cm) 0.06 -Area of Debridement (cm) - Length 0.2 -Area of Debridement (cm) - Width 0.3 -Total Square (Area) (cm) 0.06 -Tunneling No -Undermining/Tunneling No -Circular Undermining No -Wound/Ulcer Outcome Not Healed -Ulcer Cleansing Rinsed/ Irrigated with Saline -Foul Odor after Cleansing No -Bioengineered Tissue Yes -Type of Bioengineered Tissue Epifix 18mm Disc -Expiration Date 09/02/26 -Product Lot Number [id number] -Percent Used 100 -Lot number of Saline Used [id number] -Bleeding Controlled with Pressure -Treatment Response Procedure Tolerated Well -Offloading Yes -Type of Offloading Total Contact Cast (TCC) - Left ($) -Debridement - Subq, 1st 20sq cm No -Apply Skin Sub - 1st 25 sq cm - Feet 1 -Epifix 18mm Disc 3 Pain Scale: 0-10 Numeric Is Patient Pain Free? Yes - Nurse 3 - General Ulcer D/C NN Start: 11/04/21 08:40 Freq: Status: Active Protocol: Activity Type Activity Date Activity User E-Sign Co-Sign Detail Recorded Client Recorded Date Recorded By Document 11/04/21 09:26 [facility] [id number] 11/04/21 09:28 [facility] Document 11/11/21 09:01 [id number] 11/11/21 09:03 MW Document 11/18/21 09:27 KR [id number] 11/18/21 09:28 KR 11/04/21 11/11/21 11/18/21 09:26 09:01 09:27 Wound Care Nurse 3 #3 L Grt toe base -Ulcer Cleansing Not Cleansed -Foul Odor after Cleansing No -Negative Pressure Wound Therapy N/A -Primary Dressing Applied Mepilex Border Mepilex Border -Other Dressing epifix super absorbant -Primary Dressing Covered/Secured with Secured with Tape -Other Covering drsg per mw rn TCC -Mepilex Border 1 1 Left -Lotion applied to leg before No compression wrap -Other TCC TCC undercasting Treatment Response Procedure Procedure Tolerated Well Tolerated Well Pain Scale: 0-10 Numeric Is Patient Pain Free? Yes Yes Yes Teaching: Wound Center Dressing Your Wound -Person Taught Patient -Teaching Method Discussion -Response to teaching Verbalize understanding WC - Visit Discharge Discharge Condition Stable Stable Stable Ambulatory Status Wheelchair Ambulatory Ambulatory Transportation Private Auto Private Auto Private Auto Accompanied by self Medication Reconcilliation completed & No provided to patient/care provider Clinical Summary of Care Provided Yes Assessment/Plan Assessment/Plan (1) Non-pressure chronic ulcer of other part of left foot limited to breakdown of skin: CODE(S): L97.521 - Non-pressure chronic ulcer of other part of left foot limited to breakdown of skin PLAN: Patient examined evaluated, all findings discussed with patient in detail. Wound improving significantly at this time. Wound was excisionally debrided down to including level of subcutaneous tissue of all nonviable tissue using a combination of tissue nippers and 5 mm dermal curette. No anesthesia required due to diabetic neuropathy. Hemostasis obtained with light compression. Patient tolerated procedure well. An epi fix graft was applied to the wound site and moisten so that adhered to the wound bed. This was an 18 mm epi fix graft which is 3 billing units. Entire graft was used no waste. Graft was stabilized with overlying Adaptic and Steri-Strips. Wound was dressed with DSD and compression with Tubigrip. Patient will continue using total contact cast. This was applied today. He will continue oral antibiotics for additional 2 weeks. This is due to some continued drainage to the wound site. Patient's blood pressure has improved. Follow up in 1 week, wound improving very well. (2) Diabetic neuropathy: CODE(S): E11.40 - Type 2 diabetes mellitus with diabetic neuropathy, unspecified QUALIFIERS: Diabetes mellitus type: type 2 Diabetes mellitus complication detail: diabetic polyneuropathy Qualified Code(s): E11.42 - Type 2 diabetes mellitus with diabetic polyneuropathy
[2021-12-02 08:43] VITALS: BP 167/93; PULSE 96; RESP 16; TEMP 36; BMI 38.2
--- NOTE | 2021-12-02 09:09 | PN.PCM_ITS ---
History of Present Illness Date of Service: 12/02/21 Chief Complaint: Left second toe wound Cellulitis-resolving osteomyelitis left 2nd toe History of Wound: Patient follows up chronic ulceration to the left hallux. Patient denies constitutional symptoms. Patient is now motivated to progress in the wound healing process. He has improved his diet. He has improved his ability to immobilize his foot on the left side. Patient is taking. Off from work in order to get this wound healed. Denies any changes. Patient compliant with treatment at this time. Notes that his cast cracked and he is walking well spectating a baseball game. Objective Data Objective Data Vital Signs: Vital Signs Temp Pulse Resp BP 96.8 F L 96 16 167/93 H 12/02/21 08:43 12/02/21 08:43 12/02/21 08:43 12/02/21 08:43 Oxygen Delivery Method Room Air Weight: 131.696 kg Body Mass Index (BMI) 38.2 Physical Exam Narrative Patient alert oriented to person place and time. Vascular: Dorsalis pedis posterior tibial pulses palpable 2 out of 4 to bilateral lower extremity compartments. Digital hair growth noted. Capillary fill time brisk to lesser digits. Mild edema noted to left forefoot. No focal increase in warmth. Neurologic: Light touch protective sensation absent to bilateral feet. Dermatologic: Full-thickness ulceration noted to the plantar aspect of the left hallucal IPJ-healed. No signs of infection. Mild periwound edema. No fluctuance crepitus noted to the periwound areas. Maceration and drainage has resolved. Still no deep probing or concern for deep abscess. Toe is warm upon palpation. Wound still looks improved at this time. Musculoskeletal: Hallux rigidus noted to the left big toe. Skin is contributing to wound formation. No pain with calf squeeze. Muscular strength full to bilateral lower extremity compartments. Debridement Note Debridement Note Post-Debridement Measurements and Additional Note: Post-Debridement Measurements/Treatment LARISSA - Nurse 1 - General Ulcer Assessment Start: 11/04/21 08:40 Freq: Status: Active Protocol: LARISSA.LOWEXT Activity Type Activity Date Activity User E-Sign Co-Sign Detail Recorded Client Recorded Date Recorded By Document 11/04/21 08:40 MW [id number] 11/04/21 08:54 MW Document 11/11/21 08:41 BMF [id number] 11/11/21 08:44 BMF Document 11/18/21 08:55 MW [id number] 11/18/21 09:02 MW Document 11/25/21 08:28 AK [id number] 11/25/21 08:32 AK Document 12/02/21 08:43 BM [id number] 12/02/21 08:45 BM 11/04/21 11/11/21 11/18/21 08:40 08:41 08:55 WC - Today's Visit Information Type of service Follow-up Visit Follow-up Visit Follow-up Visit (Physician/PHARMACY TECHNICIAN PER DIEM (Physician/PHARMACY TECHNICIAN PER DIEM (Physician/PHARMACY TECHNICIAN PER DIEM ) ) ) Arrival Mode Ambulatory Ambulatory Ambulatory Transfer Assistance None None None Accompanied by self self Patient Identification Verified (Name & Yes Yes Yes ) Patient Requires Transmission-Based No No No Precautions Safety Precautions NA NA Height and Weight Body Mass Index (BMI) 38.2 38.2 38.2 BMI Classification Obese Obese Obese Vital Signs Temperature (97.8 F-99.1 F) 97.6 F L 97.8 F 97.0 F L Temperature Source Temporal Temporal Temporal Pulse Rate (60-100) 95 102 H 96 Pulse Location Monitor Monitor Respiratory Rate (12-18) 18 16 16 Respiratory rate source Observation Observation Observation Oxygen Delivery Method Room Air Room Air Room Air Blood Pressure (90/60-120/80) 201/106 H 161/87 H 211/101 H Blood Pressure Mean (mm Hg) 137 111 137 Source Monitor Monitor Monitor Position Sitting Sitting Semi-Fowlers Blood Pressure Location Right Arm Left Arm Left Arm Comment will update cm and dr on bp History Since Last Visit- (Skip if this is Patient's initial visit) Have you changed medications since your No No No last visit? Any new allergies or adverse reactions No No No Had a fall/change in ADL's that may No No No increase risk of falls Signs or symptoms of abuse and/or No No No neglect since last visit Have you been in the hospital since your No No No last visit? Has dressing in place as prescribed Yes Yes Yes Has compression in place as prescribed Yes N/A Yes Has offloadiing in place as prescribed N/A No Yes Experienced any changes in pain level or No No No management Left Footwear Total Contact Regular Shoe Total Contact Cast Cast Right Footwear Regular Shoe Regular Shoe Regular Shoe Pain Scale: 0-10 Numeric Is Patient Pain Free? Yes Yes Yes 11/25/21 12/02/21 08:28 08:43 WC - Today's Visit Information Type of service Follow-up Visit Follow-up Visit (Physician/PHARMACY TECHNICIAN PER DIEM (Physician/PHARMACY TECHNICIAN PER DIEM ) ) Arrival Mode Ambulatory Ambulatory Transfer Assistance None Accompanied by Patient Identification Verified (Name & Yes Yes ) Patient Requires Transmission-Based No No Precautions Safety Precautions NA Height and Weight Body Mass Index (BMI) 38.2 38.2 BMI Classification Obese Obese Vital Signs Temperature (97.8 F-99.1 F) 97.2 F L 96.8 F L Temperature Source Temporal Temporal Pulse Rate (60-100) 107 H 96 Pulse Location Monitor Monitor Respiratory Rate (12-18) 16 Respiratory rate source Observation Oxygen Delivery Method Room Air Blood Pressure (90/60-120/80) 184/110 H 167/93 H Blood Pressure Mean (mm Hg) 134 117 Source Monitor Monitor Position Sitting Blood Pressure Location Right Arm Comment History Since Last Visit- (Skip if this is Patient's initial visit) Have you changed medications since your No No last visit? Any new allergies or adverse reactions No No Had a fall/change in ADL's that may No No increase risk of falls Signs or symptoms of abuse and/or No No neglect since last visit Have you been in the hospital since your No No last visit? Has dressing in place as prescribed Yes No Has compression in place as prescribed Yes N/A Has offloadiing in place as prescribed Yes No Experienced any changes in pain level or No No management Left Footwear Regular Shoe Regular Shoe Right Footwear Removable Cast Surgical Shoe Walker/Walking with pressure Boot relief insole Pain Scale: 0-10 Numeric Is Patient Pain Free? Yes Yes - Nurse 1 - General Ulcer Measurement Start: 11/04/21 08:40 Freq: Status: Active Protocol: Activity Type Activity Date Activity User E-Sign Co-Sign Detail Recorded Client Recorded Date Recorded By Document 11/04/21 08:40 MW [id number] 11/04/21 08:54 MW Document 11/11/21 08:41 BM [id number] 11/11/21 08:44 BMF Document 11/18/21 08:55 MW [id number] 11/18/21 09:02 MW Document 11/25/21 08:28 NC [id number] 11/25/21 08:32 AK Document 12/02/21 08:43 [facility] [id number] 12/02/21 08:45 [facility] 11/04/21 11/11/21 11/18/21 08:40 08:41 08:55 Wound Center Nurse 1 #3 L Grt toe base -Combined with other wound No No No -Current Size (cm) - Length 0.3 0.5 0.2 -Current Size (cm) - Width 0.3 0.3 0.2 -Current Size (cm) - Depth 0.1 0.2 0.1 -Total Square Cm 0.09 0.15 0.04 -Date of Last Picture (Recall this 11/18/21 field) -Photo Taken No Yes -Epithelialization Small 1-33% Small 1-33% None Present -Tunneling No No No -Undermining/Tunneling No No No -Circular Undermining No No No -Exudate Amt Medium Medium Small -Exudate Type Serous Serosanguineous Serosanguineous -Wound Margin Distinct, Distinct, Flat & Intact Outline Outline Attached Attached -Granulation Amt Medium (34-66%) Large (67-100%) None Present (0 %) -Granulation Quality Mango Red N/A -Slough/Fibrin Yes No Yes -Necrosis Amt Medium (34-66%) None Present (0 Large (67-100%) %) -Necrotic Tissue Type Adherent Slough Adherent Slough -Structure Exposed N/A -Texture (Bev-wound Skin Appearance) Assessed,Callus Assessed Assessed,Callus -Moisture (Bev-wound Skin Appearance) Assessed Assessed, No Abnormality, Maceration Assessed -Color (Bev-wound Skin Appearance) Assessed Assessed,Palor No Abnormality, Assessed -Temperature (Bev-wound Skin No Abnormality No Abnormality No Abnormality Appearance) (Pt Warm) (Pt Warm) (Pt Warm) -Tenderness on Palpation (Bev-wound No No Yes Skin Appearance) -Ulcer Cleansing Soap and Water Soap and Water -Foul Odor after Cleansing No No No -Anesthetic Used 5% Lidocaine 4% Lidocaine 5% Lidocaine Gel Solution Gel Lower Limb Edema Present Yes No Left Calf (cm) 42 42.1 Left Ankle (cm) 25.7 24.5 05/24/22 05/31/22 08:28 08:43 Wound Center Nurse 1 #3 L Grt toe base -Combined with other wound No No -Current Size (cm) - Length 0.2 0.6 -Current Size (cm) - Width 0.1 0.7 -Current Size (cm) - Depth 0.2 0.1 -Total Square Cm 0.02 0.42 -Date of Last Picture (Recall this 11/25/21 12/02/21 field) -Photo Taken Yes Yes -Epithelialization Medium 34-66% None Present -Tunneling No No -Undermining/Tunneling No No -Circular Undermining No No -Exudate Amt Small None Present -Exudate Type Serosanguineous -Wound Margin Distinct, Distinct, Outline Outline Attached Attached -Granulation Amt Medium (34-66%) None Present (0 %) -Granulation Quality Pale,Mango -Slough/Fibrin Yes -Necrosis Amt Small (1-33%) Large (67-100%) -Necrotic Tissue Type Adherent Slough Adherent Slough -Structure Exposed N/A -Texture (Bev-wound Skin Appearance) Assessed,Callus Assessed,Callus ,Scarring -Moisture (Bev-wound Skin Appearance) No Abnormality, Assessed,Dry/ Assessed Scaly -Color (Bev-wound Skin Appearance) No Abnormality, Assessed Assessed -Temperature (Bev-wound Skin No Abnormality No Abnormality Appearance) (Pt Warm) (Pt Warm) -Tenderness on Palpation (Bev-wound No Skin Appearance) -Ulcer Cleansing Soap and Water Rinsed/ Irrigated with Saline -Foul Odor after Cleansing No No -Anesthetic Used 4% Lidocaine 5% Lidocaine Solution Gel Lower Limb Edema Present Left Calf (cm) 42.1 Left Ankle (cm) 24.3 WC - Nurse 2 - General Ulcer CM Notes Start: 11/04/21 08:40 Freq: Status: Active Protocol: Activity Type Activity Date Activity User E-Sign Co-Sign Detail Recorded Client Recorded Date Recorded By Document 11/04/21 09:15 HELIO [id number] 11/04/21 09:24 Document 11/11/21 08:52 HELIO [id number] 11/11/21 09:00 HELIO Document 11/18/21 09:10 HELIO [id number] 11/18/21 09:16 Document 11/25/21 08:49 [id number] 11/25/21 08:50 Document 12/02/21 08:55 [id number] 12/02/21 08:58 11/04/21 11/11/21 11/18/21 09:15 08:52 09:10 Wound Center Nurse 2 #3 L Grt toe base -Time 09:15 08:52 09:15 -Correct Patient Yes Yes Yes -Correct Side, Site, Position Yes Yes Yes -Correct Procedure Yes Yes Yes -Procedure Performed Yes Yes Yes -Type of Procedure Debridement Debridement Debridement -Clinical Debridement Subcutaneous Subcutaneous Subcutaneous -Tissue Removed Subcutaneous Subcutaneous Subcutaneous -Post Debridement (cm) - Length 0.6 0.6 0.3 -Post Debridement (cm) - Width 0.7 0.5 0.3 -Post Debridement (cm) - Depth 0.2 0.3 0.1 -Total Square (Post) (cm) 0.42 0.30 0.09 -Area of Debridement (cm) - Length 0.6 0.6 0.3 -Area of Debridement (cm) - Width 0.7 0.5 0.3 -Total Square (Area) (cm) 0.42 0.30 0.09 -Tunneling No No No -Undermining/Tunneling No No No -Circular Undermining No No No -Wound/Ulcer Outcome Not Healed Not Healed Not Healed -Ulcer Cleansing Rinsed/ Rinsed/ Rinsed/ Irrigated with Irrigated with Irrigated with Saline Saline Saline -Foul Odor after Cleansing No No No -Bioengineered Tissue Yes Yes Yes -Type of Bioengineered Tissue Epifix 18mm Epifix 18mm Epifix 18mm Disc Disc Disc -Expiration Date 08/05/26 08/05/26 07/05/26 -Product Lot Number [id number] -Percent Used 100 100 100 -Lot number of Saline Used [id number] -Bleeding Controlled with Pressure Pressure Pressure -Treatment Response Procedure Procedure Procedure Tolerated Well Tolerated Well Tolerated Well -Offloading Yes Yes Yes -Type of Offloading Camwalker Total Contact Total Contact Cast (TCC) - Cast (TCC) - Left ($) Left ($) -Debridement - Subq, 1st 20sq cm No No No -Apply Skin Sub - 1st 25 sq cm - Feet 1 1 1 -Epifix 18mm Disc 3 3 3 Pain Scale: 0-10 Numeric Is Patient Pain Free? Yes Yes Yes 11/25/21 12/02/21 08:49 08:55 Wound Center Nurse 2 #3 L Grt toe base -Time 08:49 08:55 -Correct Patient Yes No -Correct Side, Site, Position Yes No -Correct Procedure Yes No -Procedure Performed Yes No -Type of Procedure Debridement -Clinical Debridement Subcutaneous -Tissue Removed Subcutaneous -Post Debridement (cm) - Length 0.2 0 -Post Debridement (cm) - Width 0.3 0 -Post Debridement (cm) - Depth 0.1 0 -Total Square (Post) (cm) 0.06 0 -Area of Debridement (cm) - Length 0.2 0 -Area of Debridement (cm) - Width 0.3 0 -Total Square (Area) (cm) 0.06 0 -Tunneling No No -Undermining/Tunneling No No -Circular Undermining No No -Wound/Ulcer Outcome Not Healed Healed- Epithelialized -Ulcer Cleansing Rinsed/ Rinsed/ Irrigated with Irrigated with Saline Saline -Foul Odor after Cleansing No No -Bioengineered Tissue Yes No -Type of Bioengineered Tissue Epifix 18mm Disc -Expiration Date 09/02/26 -Product Lot Number [id number] -Percent Used 100 -Lot number of Saline Used [id number] -Bleeding Controlled with Pressure Pressure -Treatment Response Procedure Procedure Tolerated Well Tolerated Well -Offloading Yes Yes -Type of Offloading Total Contact Surgical Shoe Cast (TCC) - Left ($) -Debridement - Subq, 1st 20sq cm No No -Apply Skin Sub - 1st 25 sq cm - Feet 1 -Epifix 18mm Disc 3 Pain Scale: 0-10 Numeric Is Patient Pain Free? Yes Yes - Nurse 3 - General Ulcer D/C NN Start: 11/04/21 08:40 Freq: Status: Active Protocol: Activity Type Activity Date Activity User E-Sign Co-Sign Detail Recorded Client Recorded Date Recorded By Document 11/04/21 09:26 [facility] [id number] 11/04/21 09:28 [facility] Document 11/11/21 09:01 [id number] 11/11/21 09:03 MW Document 11/18/21 09:27 KR [id number] 11/18/21 09:28 KR Document 11/25/21 08:53 JF [id number] 11/25/21 08:54 JF Document 12/02/21 09:05 [id number] 12/02/21 09:06 JF 11/04/21 11/11/21 11/18/21 09:26 09:01 09:27 Wound Care Nurse 3 #3 L Grt toe base -Ulcer Cleansing Not Cleansed -Foul Odor after Cleansing No -Negative Pressure Wound Therapy N/A -Primary Dressing Applied Mepilex Border Mepilex Border -Other Dressing epifix super absorbant -Primary Dressing Covered/Secured with Secured with Tape -Other Covering drsg per mw rn TCC -Mepilex Border 1 1 Left -Lotion applied to leg before No compression wrap -Other TCC TCC undercasting Treatment Response Procedure Procedure Tolerated Well Tolerated Well Pain Scale: 0-10 Numeric Is Patient Pain Free? Yes Yes Yes Teaching: Wound Center Dressing Your Wound -Person Taught Patient -Teaching Method Discussion -Response to teaching Verbalize understanding WC - Visit Discharge Discharge Condition Stable Stable Stable Ambulatory Status Wheelchair Ambulatory Ambulatory Transportation Private Auto Private Auto Private Auto Accompanied by self Medication Reconcilliation completed & No provided to patient/care provider Clinical Summary of Care Provided Yes 11/25/21 12/02/21 08:53 09:05 Wound Care Nurse 3 #3 L Grt toe base -Ulcer Cleansing Rinsed/ Irrigated with Saline -Foul Odor after Cleansing No -Negative Pressure Wound Therapy -Primary Dressing Applied -Other Dressing non charge superabsorber -Primary Dressing Covered/Secured with -Other Covering betadine painted to toe webspace. -Mepilex Border Left -Lotion applied to leg before compression wrap -Other Treatment Response Pain Scale: 0-10 Numeric Is Patient Pain Free? Yes Yes Teaching: Wound Center Dressing Your Wound -Person Taught -Teaching Method -Response to teaching WC - Visit Discharge Discharge Condition Stable Stable Ambulatory Status Ambulatory Ambulatory Transportation Private Auto Private Auto Accompanied by Medication Reconcilliation completed & Yes Yes provided to patient/care provider Clinical Summary of Care Provided Yes Assessment/Plan Assessment/Plan (1) Non-pressure chronic ulcer of other part of left foot limited to breakdown of skin: CODE(S): L97.521 - Non-pressure chronic ulcer of other part of left foot l imited to breakdown of skin PLAN: Patient examined evaluated, all findings discussed with patient in detail. Wound healed at this time. I created an offloading pad for the patient's work boot to offload the plantar aspect of the hallux on the left side. Patient will return to work. I gave patient prescription for custom diabetic shoes. We will check on the patient again in 3 weeks to ensure no recurrence of the ulceration has occurred. Patient will contact us if he develops a new wound or any signs or symptoms of infection. He will continue to attempt to control his blood sugar when she has been in the 220s and check his feet daily to ensure no new ulcerations have formed. Patient will follow up in 3 weeks. (2) Diabetic neuropathy: CODE(S): E11.40 - Type 2 diabetes mellitus with diabetic neuropathy, unspecified QUALIFIERS: Diabetes mellitus type: type 2 Diabetes mellitus complication detail: diabetic polyneuropathy Qualified Code(s): E11.42 - Type 2 diabetes mellitus with diabetic polyneuropathy
== END 2021-12-02 23:59 | disposition home or self-care (01) ==
LOC: WC 08:45
PROVIDERS: PCP Family Medicine; Visit Provider Podiatrist
DX: E11.621 Type 2 diabetes mellitus with foot ulcer (principal); L97.521 Non-pressure chronic ulcer of other part of left foot limited to breakdown of skin; M86.8X7 Other osteomyelitis, ankle and foot; E11.42 Type 2 diabetes mellitus with diabetic polyneuropathy; M20.22 Hallux rigidus, left foot
CPT/HCPCS: 15275; 29445; 99213; Q4186; G0463

== ENCOUNTER → 2022-05-04 | Outpatient (CLI) | payer OTHER, SELFPAY ==
[2022-05-04 19:22] LABS: Creatinine, Serum 0.97 mg/dL (0.70-1.30); EST Glomerular Filtration Rate 92 mL/min (>60); Est Glom Filt Rate - Afr Amer 112 mL/min (>60)
[2022-05-07 11:14] LABS: BUN 16 mg/dL (7-18)
== END | disposition home or self-care (01) ==
LOC: BFHLAB 15:53
PROVIDERS: PCP Family Medicine; Visit Provider Family Medicine
DX: I10 Essential (primary) hypertension (principal)
CPT/HCPCS: 36415; 82565; 84520

== ENCOUNTER 2022-09-21 10:15 | Outpatient (RCR) | payer OTHER, SELFPAY ==
[2021-12-03 00:53] VITALS: BP 167/93; PULSE 96; RESP 16; TEMP 36; BMI 38.2
[2022-09-14 09:27] VITALS: BP 197/101; PULSE 92; RESP 16; TEMP 36; BMI 44.9
--- NOTE | 2022-09-14 13:14 | PCM.WC.PN ---
History of Present Illness Date of Service: 09/14/22 Chief Complaint: Left second toe wound Cellulitis-resolving osteomyelitis left 2nd toe History of Wound: Patient follows up chronic ulceration to the left hallux. Patient denies constitutional symptoms. Patient is now motivated to progress in the wound healing process. He has improved his diet. He has improved his ability to immobilize his foot on the left side. Patient is taking. Off from work in order to get this wound healed. Denies any changes. Patient compliant with treatment at this time. Notes that his cast cracked and he is walking well spectating a baseball game. Objective Data Objective Data Vital Signs: Vital Signs Temp Pulse Resp BP O2 Del Method 96.8 F L 92 16 197/101 H Room Air 09/14/22 09:27 09/14/22 09:27 09/14/22 09:27 09/14/22 09:27 09/14/22 09:27 Oxygen Delivery Method Room Air Weight: 340 lb Body Mass Index (BMI) 44.9 Debridement Note Debridement Note Post-Debridement Measurements and Additional Note: Post-Debridement Measurements/Treatment - Nurse 1 - General Ulcer Assessment Start: 09/14/22 09:26 Freq: Status: Active Protocol: LARISSA.LOWEXCathy Activity Type Activity Date Activity User E-sign Co-sign Detail Recorded Client Recorded Date Recorded By Document 09/14/22 09:27 BMF [id number] 09/14/22 09:47 BMF Edit Result 09/14/22 09:27 BMF (1) [id number] 09/14/22 09:50 BMF (1) Pulse Rate (60-100) => 92 Pulse Location => Monitor Blood Pressure (90/60-120/80) => 197/101 H Blood Pressure Mean (mm Hg) => 133 Source => Monitor Position => Sitting 09/14/22 09:27 WC - Today's Visit Information Type of service Follow-up Visit (Physician/WEIGHT CALCULATOR ) Arrival Mode Ambulatory Transfer Assistance None Accompanied by Patient Identification Verified (Name & Yes ) Patient Requires Transmission-Based No Precautions Height and Weight Height 6 ft 1 in Weight 340 lb Weight in Pounds 340.0 lbs Weight Measurement Method Estimated by Patient Body Mass Index (BMI) 44.9 BMI Classification Obese BSA - Ward 2.70 Vital Signs Temperature (97.8 F-99.1 F) 96.8 F L Temperature Source Temporal Pulse Rate (60-100) 92 Pulse Location Monitor Respiratory Rate (12-18) 16 Respiratory rate source Observation Oxygen Delivery Method Room Air Blood Pressure (90/60-120/80) 197/101 H Blood Pressure Mean (mm Hg) 133 Source Monitor Position Sitting History Since Last Visit- (Skip if this is Patient's initial visit) Left Footwear Removable Cast Walker/Walking Boot Right Footwear Regular Shoe Pain Scale: 0-10 Numeric Is Patient Pain Free? Yes Lower Extremity Assessment/ Foot Assessment/ Toe Nail Assessment Left -Posterior Tibial Doppler Multiphasic -Dorsalis Pedis Doppler Multiphasic -Hair Growth on Legs No -Hair Growth on Toes No -Temperature of Extremity Warm -Capillary Refill Greater than 3 Seconds -Dependent Rubor No -Blanched when Elevated No -Lipodermatosclerosis No -Other Deformity No -Prior Foot Ulcer No -Charcot Joint No -Prior Amputation No -Thick No -Discolored No -Deformed No -Improper Length & Hygeine No Right -Posterior Tibial Doppler Multiphasic -Dorsalis Pedis Doppler Multiphasic -Extremity Color Normal -Hair Growth on Legs No -Hair Growth on Toes No -Temperature of Extremity Cool -Capillary Refill Greater than 3 Seconds -Dependent Rubor No -Blanched when Elevated No -Lipodermatosclerosis No -Other Deformity No -Prior Foot Ulcer No -Charcot Joint No -Prior Amputation No -Thick No -Discolored No -Deformed No -Improper Length & Hygeine No Neuropathy Assessment Feet - Top Side and Bottom <Entered> (a) Teaching Assessment Preferences Verbal,Written, Demonstration Readiness To Learn Good Willingness to Engage in Self Management Med Activies Readiness to Engage in Self Management Med Activities Anxiety Level Calm Cooperation Cooperative Perception Coherent Interest in Health Problem Asks Questions Education Importance Acknowledges Need Does Patient Smoke tobacco or other No substances Smoking Status Former smoker Is Patient Diabetic Yes Functional Assessment Recent Decline in Ability to Perform Denies Any Declines Culture/Scientology/Shell Core And Molding Supervisor Cultural/Scientology Needs that may affect No Treatment Plan Would you allow our hospital stenciler to No meet you for the purpose of spiritual/ emotional support? Shell Core And Molding Supervisor to contact place of gnosticism No Teaching: Wound Center *Wound/Skin Impairment -Person Taught Patient TCC -Person Taught Patient *Infection -Person Taught Patient Diagnostic Tests Ordered -Person Taught Patient Dressing Your Wound -Person Taught Patient *Debridement -Person Taught Patient *Welcome to the Wound Center -Person Taught Patient (a) 1 - + 2 - + 3 - _ 4 - + WC - Nurse 1 - General Ulcer Measurement Start: 09/14/22 09:26 Freq: Status: Active Protocol: Activity Type Activity Date Activity User E-sign Co-sign Detail Recorded Client Recorded Date Recorded By Document 09/14/22 09:27 [facility] [id number] 09/14/22 09:47 [facility] 09/14/22 09:27 Wound Center Nurse 1 #4 L Plantar -Current Size (cm) - Length 1.4 -Current Size (cm) - Width 1.4 -Current Size (cm) - Depth 0.6 -Total Square Cm 1.96 -Photo Taken Yes -Undermining/Tunneling Starts (O'clock 11 ) -Undermining/Tunneling Ends (O'clock) 1 -Maximum Distance (cm) 0.3 -Undermining/Tunneling Starts #2 (O' 4 clock) -Undermining/Tunneling Ends #2 (O' 6 clock) -Maximum Distance #2 (cm) 0.4 -Classification - Thickness Full Thickness without Exposed Support Structure -Exudate Amt Medium -Exudate Type Serosanguineous -Wound Margin Distinct, Outline Attached -Granulation Amt Large (67-100%) -Granulation Quality Red -Necrosis Amt None Present (0 %) -Structure Exposed N/A -Texture (Bev-wound Skin Appearance) Callus -Moisture (Bev-wound Skin Appearance) Maceration -Color (Bev-wound Skin Appearance) No Abnormality -Temperature (Bev-wound Skin No Abnormality Appearance) (Pt Warm) -Tenderness on Palpation (Bev-wound No Skin Appearance) -Ulcer Cleansing Soap and Water -Foul Odor after Cleansing No -Anesthetic Used 5% Lidocaine Gel Right Calf (cm) 44.4 Right Ankle (cm) 23.5 Left Calf (cm) 43.2 Left Ankle (cm) 24.6 WC - Nurse 2 - General Ulcer CM Notes Start: 09/14/22 09:26 Freq: Status: Active Protocol: Activity Type Activity Date Activity User E-sign Co-sign Detail Recorded Client Recorded Date Recorded By Document 09/14/22 10:37 [id number] 09/14/22 10:50 09/14/22 10:37 Wound Center Nurse 2 #4 L Plantar -Time 10:37 -Correct Patient Yes -Correct Side, Site, Position Yes -Correct Procedure Yes -Procedure Performed Yes -Type of Procedure Debridement -Clinical Debridement Subcutaneous -Tissue Removed Subcutaneous -Post Debridement (cm) - Length 2.0 -Post Debridement (cm) - Width 1.2 -Post Debridement (cm) - Depth 0.2 -Total Square (Post) (cm) 2.40 -Area of Debridement (cm) - Length 2.0 -Area of Debridement (cm) - Width 1.2 -Total Square (Area) (cm) 2.40 -Tunneling No -Undermining/Tunneling No -Circular Undermining No -Wound/Ulcer Outcome Not Healed -Ulcer Cleansing Rinsed/ Irrigated with Saline -Foul Odor after Cleansing No -Bioengineered Tissue No -Bleeding Controlled with Pressure -Treatment Response Procedure Tolerated Well -Offloading No -Type of Offloading Camwalker -Debridement - Subq, 1st 20sq cm Yes Pain Scale: 0-10 Numeric Is Patient Pain Free? Yes - Nurse 3 - General Ulcer D/C NN Start: 09/14/22 09:26 Freq: Status: Active Protocol: Activity Type Activity Date Activity User E-sign Co-sign Detail Recorded Client Recorded Date Recorded By Document 09/14/22 11:02 [facility] [id number] 09/14/22 11:03 [facility] 09/14/22 11:02 Wound Care Center Nurse 3 #4 L Plantar -Ulcer Cleansing Rinsed/ Irrigated with Saline -Foul Odor after Cleansing No -Primary Dressing Applied Silvercel -Primary Dressing Covered/Secured with Dry Gauze, Secured with Tape -Silvercel 1 Treatment Response Procedure Tolerated Well Pain Scale: 0-10 Numeric Is Patient Pain Free? Yes WC - Visit Discharge Discharge Condition Stable Ambulatory Status Ambulatory Transportation Private Auto Accompanied by
--- NOTE | 2022-09-14 13:15 | PCM.WC.HP ---
History of Present Illness Date of Service: 09/14/22 Chief Complaint: Left plantar foot at base of great toe. History of Wound: Patient had an ulcer in this area that healed November 2021. He was seeing Dr. Rodriguez at that time. Patient's ulcer healed and then he went back to work wearing regular tennis shoes and the ulcer reopened not long after being healed. He has been placing antibiotic ointment on it and covering it with gauze. When he is more active, there is an increase in drainage. He is not experiencing much pain with it. Patient states that Dr. Rodriguez told him that if he went back to work right away the ulcer would reoccur. He is wearing a [place] boot that he has had for years when he had an injury. There is nothing off loading about it. He is currently on antibiotics for an infected tooth, he is not sure what antibiotic. He is not sure what his HgA1c is right now, it has been as high as 12.0. He is on new medications that are helping improve his blood sugars. He currently denies fever, chills, nausea, vomiting. Progress of Wound: Left plantar toe with increased callus surrounding the ulcer. [facility] Medical History Arm paresthesia, left Cellulitis Chiari malformation Depression Diabetes mellitus Diabetic neuropathy DM (diabetes mellitus), type 2 with complications Gastroparesis GERD (gastroesophageal reflux disease) HLD (hyperlipidemia) HTN (hypertension) Obese Radicular pain in left arm Ulcer of toe of left foot Home Medications amoxicillin 250 mg capsule mg PO Q8H 09/14/22 [History Last Taken Unknown] insulin NPH-regular 70-30 U-100 insulin 100 unit/mL subcutaneous pen (Novolin 70-30 FlexPen U-100 Insulin) 70 unit subcut TID 09/14/22 [History Last Taken Unknown] semaglutide 0.25 mg or 0.5 mg (2 mg/3 mL) subcutaneous pen injector (Ozempic) 0.25 mg subcut QWEEK 09/14/22 [History Last Taken Unknown] Allergy/AdvReac Type Severity Reaction Status Date / Time No Known Allergies Allergy Verified 09/14/22 09:50 Social History Smoking Status: Former smoker ROS Constitutional Constitutional: Denies chills or fever(s) Eyes Eyes: Reports none ENT HEENT: Reports other Details: left tooth (molar) pain due to infection that he is on antibiotic for ; Denies headache(s) Cardiovascular Cardiovascular: Denies chest pain or dyspnea Respiratory/Chest Respiratory/Chest: Denies cough or dyspnea Gastrointestinal Gastrointestinal: Reports as per HPI; Denies diarrhea or nausea Genitourinary Genitourinary: Reports none Musculoskeletal Musculoskeletal: Reports joint pain and numbness Integumentary Integumentary: Reports as per HPI and wounds Neurologic Neurologic: Reports numbness and tingling Psychiatric Psychiatric: Reports as per HPI and depression Endocrine Endocrinology: Reports none Hematologic/Lymphatic Hematologic/Lymphatic: Reports none Vital Signs Vital Signs Vital Signs: 09/14/22 09:27 Temperature 96.8 F L Temperature Source Temporal Pulse Rate 92 Respiratory Rate 16 Blood Pressure 197/101 H Blood Pressure Mean 133 Blood Pressure Source Monitor Blood Pressure Position Sitting Oxygen Delivery Method Room Air Weight Weight: 340 lb Body Mass Index (BMI) 44.9 Physical Exam Const alert, oriented x3, no apparent distress and well nourished General Appearance: cooperative HEENT normocephalic Eyes General Eye: normal appearance of both eyes Neck full ROM Lymph Lymphatic: no lymphedema noted Resp normal air movement and clear to auscultation bilaterally Cardio regular rate and regular rhythm GI soft to palpation and non-tender Back/Spine normal ROM Extremity normal to inspection, full ROM and normal capillary refill Skin Wound Narrative: Ulcer on left plantar foot proximal to left great toe. The ulcer has thick callus surrounding it. Neuro oriented x3 Sensorium / Orientation: awake and alert Psych mental status grossly normal, thought process normal, cooperative and affect normal Appearance: grossly normal Debridement Note Debridement Note Wound debrided: Plantar foot proximal to great toe/hallux area Laterality: Left Wound Grade/Stage: Stage III Type of Debridement: Excisional debridement Anesthesia Used: 5% Lidocaine Gel Depth: Down to and including healthy tissue and in the subcutaneous layer Percentage of wound debrided: 100 Instrument Used: 5mm curette and #15 blade Tissue Removed: Devitalized tissue and slough Severity: Fat Layer Exposed Amount of bleeding with debridement: Mild Bleeding Controlled with: Pressure and Compression and gauze Patient tolerated procedure: Patient tolerated procedure well Post-Debridement Measurements and Additional Note: Post-Debridement Measurements/Treatment WC - Nurse 1 - General Ulcer Assessment Start: 09/14/22 09:26 Freq: Status: Active Protocol: CASSIE Activity Type Activity Date Activity User E-sign Co-sign Detail Recorded Client Recorded Date Recorded By Document 09/14/22 09:27 BMF [id number] 09/14/22 09:47 BMF Edit Result 09/14/22 09:27 BMF (1) [id number] 09/14/22 09:50 BMF (1) Pulse Rate (60-100) => 92 Pulse Location => Monitor Blood Pressure (90/60-120/80) => 197/101 H Blood Pressure Mean => 133 Source => Monitor Position => Sitting 09/14/22 09:27 - Today's Visit Information Type of service Follow-up Visit (Physician/COLLECTIONS DIRECTOR ) Arrival Mode Ambulatory Transfer Assistance None Accompanied by Patient Identification Verified (Name & Yes ) Patient Requires Transmission-Based No Precautions Height and Weight Height 6 ft 1 in Weight 340 lb Weight in Pounds 340.0 lbs Weight Measurement Method Estimated by Patient Body Mass Index (BMI) 44.9 BMI Classification Obese BSA - Ward 2.70 Vital Signs Temperature (97.8 F-99.1 F) 96.8 F L Temperature Source Temporal Pulse Rate (60-100) 92 Pulse Location Monitor Respiratory Rate (12-18) 16 Respiratory rate source Observation Oxygen Delivery Method Room Air Blood Pressure (90/60-120/80) 197/101 H Blood Pressure Mean 133 Source Monitor Position Sitting History Since Last Visit- (Skip if this is Patient's initial visit) Left Footwear Removable Cast Walker/Walking Boot Right Footwear Regular Shoe Pain Scale: 0-10 Numeric Is Patient Pain Free? Yes Lower Extremity Assessment/ Foot Assessment/ Toe Nail Assessment Left -Posterior Tibial Doppler Multiphasic -Dorsalis Pedis Doppler Multiphasic -Hair Growth on Legs No -Hair Growth on Toes No -Temperature of Extremity Warm -Capillary Refill Greater than 3 Seconds -Dependent Rubor No -Blanched when Elevated No -Lipodermatosclerosis No -Other Deformity No -Prior Foot Ulcer No -Charcot Joint No -Prior Amputation No -Thick No -Discolored No -Deformed No -Improper Length & Hygeine No Right -Posterior Tibial Doppler Multiphasic -Dorsalis Pedis Doppler Multiphasic -Extremity Color Normal -Hair Growth on Legs No -Hair Growth on Toes No -Temperature of Extremity Cool -Capillary Refill Greater than 3 Seconds -Dependent Rubor No -Blanched when Elevated No -Lipodermatosclerosis No -Other Deformity No -Prior Foot Ulcer No -Charcot Joint No -Prior Amputation No -Thick No -Discolored No -Deformed No -Improper Length & Hygeine No Neuropathy Assessment Feet - Top Side and Bottom <Entered> (a) Teaching Assessment Preferences Verbal,Written, Demonstration Readiness To Learn Good Willingness to Engage in Self Management Med Activies Readiness to Engage in Self Management Med Activities Anxiety Level Calm Cooperation Cooperative Perception Coherent Interest in Health Problem Asks Questions Education Importance Acknowledges Need Does Patient Smoke tobacco or other No substances Smoking Status Former smoker Is Patient Diabetic Yes Functional Assessment Recent Decline in Ability to Perform Denies Any Declines Culture/Sabianism/Paleontological Helper Cultural/Sabianism Needs that may affect No Treatment Plan Would you allow our hospital career development engineer to No meet you for the purpose of spiritual/ emotional support? Paleontological Helper to contact place of druze No Teaching: Wound Center *Wound/Skin Impairment -Person Taught Patient TCC -Person Taught Patient *Infection -Person Taught Patient Diagnostic Tests Ordered -Person Taught Patient Dressing Your Wound -Person Taught Patient *Debridement -Person Taught Patient *Welcome to the Wound Center -Person Taught Patient (a) 1 - + 2 - + 3 - _ 4 - + WC - Nurse 1 - General Ulcer Measurement Start: 09/14/22 09:26 Freq: Status: Active Protocol: Activity Type Activity Date Activity User E-sign Co-sign Detail Recorded Client Recorded Date Recorded By Document 09/14/22 09:27 [facility] [id number] 09/14/22 09:47 [facility] 09/14/22 09:27 Wound Center Nurse 1 #4 L Plantar -Current Size (cm) - Length 1.4 -Current Size (cm) - Width 1.4 -Current Size (cm) - Depth 0.6 -Total Square Cm 1.96 -Photo Taken Yes -Undermining/Tunneling Starts (O'clock 11 ) -Undermining/Tunneling Ends (O'clock) 1 -Maximum Distance (cm) 0.3 -Undermining/Tunneling Starts #2 (O' 4 clock) -Undermining/Tunneling Ends #2 (O' 6 clock) -Maximum Distance #2 (cm) 0.4 -Classification - Thickness Full Thickness without Exposed Support Structure -Exudate Amt Medium -Exudate Type Serosanguineous -Wound Margin Distinct, Outline Attached -Granulation Amt Large (67-100%) -Granulation Quality Red -Necrosis Amt None Present (0 %) -Structure Exposed N/A -Texture (Bev-wound Skin Appearance) Callus -Moisture (Bev-wound Skin Appearance) Maceration -Color (Bev-wound Skin Appearance) No Abnormality -Temperature (Bev-wound Skin No Abnormality Appearance) (Pt Warm) -Tenderness on Palpation (Bev-wound No Skin Appearance) -Ulcer Cleansing Soap and Water -Foul Odor after Cleansing No -Anesthetic Used 5% Lidocaine Gel Right Calf (cm) 44.4 Right Ankle (cm) 23.5 Left Calf (cm) 43.2 Left Ankle (cm) 24.6 WC - Nurse 2 - General Ulcer CM Notes Start: 09/14/22 09:26 Freq: Status: Active Protocol: Activity Type Activity Date Activity User E-sign Co-sign Detail Recorded Client Recorded Date Recorded By Document 09/14/22 10:37 HELIO [id number] 09/14/22 10:50 HELIO 09/14/22 10:37 Wound Center Nurse 2 #4 L Plantar -Time 10:37 -Correct Patient Yes -Correct Side, Site, Position Yes -Correct Procedure Yes -Procedure Performed Yes -Type of Procedure Debridement -Clinical Debridement Subcutaneous -Tissue Removed Subcutaneous -Post Debridement (cm) - Length 2.0 -Post Debridement (cm) - Width 1.2 -Post Debridement (cm) - Depth 0.2 -Total Square (Post) (cm) 2.40 -Area of Debridement (cm) - Length 2.0 -Area of Debridement (cm) - Width 1.2 -Total Square (Area) (cm) 2.40 -Tunneling No -Undermining/Tunneling No -Circular Undermining No -Wound/Ulcer Outcome Not Healed -Ulcer Cleansing Rinsed/ Irrigated with Saline -Foul Odor after Cleansing No -Bioengineered Tissue No -Bleeding Controlled with Pressure -Treatment Response Procedure Tolerated Well -Offloading No -Type of Offloading Camwalker -Debridement - Subq, 1st 20sq cm Yes Pain Scale: 0-10 Numeric Is Patient Pain Free? Yes - Nurse 3 - General Ulcer D/C NN Start: 09/14/22 09:26 Freq: Status: Active Protocol: Activity Type Activity Date Activity User E-sign Co-sign Detail Recorded Client Recorded Date Recorded By Document 09/14/22 11:02 [facility] [id number] 09/14/22 11:03 [facility] 09/14/22 11:02 Wound Care Center Nurse 3 #4 L Plantar -Ulcer Cleansing Rinsed/ Irrigated with Saline -Foul Odor after Cleansing No -Primary Dressing Applied Silvercel -Primary Dressing Covered/Secured with Dry Gauze, Secured with Tape -Silvercel 1 Treatment Response Procedure Tolerated Well Pain Scale: 0-10 Numeric Is Patient Pain Free? Yes WC - Visit Discharge Discharge Condition Stable Ambulatory Status Ambulatory Transportation Private Auto Accompanied by Charges/Coding Visit Charges Office Visits / Consults: 64065 OV L4 Est (25 modifier) Procedures Integumentary [id number]: [id number] Maria Elena subq tissue 20 sq cm/< Assessment/Plan Assessment/Plan (1) Ulcer of toe of left foot: CODE(S): L97.529 - Non-pressure chronic ulcer of other part of left foot with unspecified severity QUALIFIERS: Non-pressure ulcer stage: with fat layer exposed Qualified Code(s): L97.522 - Non-pressure chronic ulcer of other part of left foot with fat layer exposed (2) Diabetic neuropathy: CODE(S): E11.40 - Type 2 diabetes mellitus with diabetic neuropathy, unspecified QUALIFIERS: Diabetes mellitus type: type 2 Diabetes mellitus complication detail: diabetic polyneuropathy Qualified Code(s): E11.42 - Type 2 diabetes mellitus with diabetic polyneuropathy (3) DM (diabetes mellitus), type 2 with complications: CODE(S): E11.8 - Type 2 diabetes mellitus with unspecified complications (4) History of osteomyelitis: CODE(S): Z87.39 - Personal history of other diseases of the musculoskeletal system and connective tissue PLAN: Plan Patient evaluated at the wound healing center today. Wound care - Silvercel covered with gauze daily after washing ulcer with soap and water and patting dry. Will obtain x-ray of left foot since he has not had one in a year. A wound culture was obtained today.? A positive culture will necessitate antibiotic therapy. Encouraged patient to off load. Will refer to [facility] for off loading shoe. Follow up one week.
--- NOTE | 2022-09-18 10:46 | RAD_ITS ---
STUDY: X-RAY - LEFT FOOT CLINICAL: Male, 37 years old. Ulcer. Follow-up. TECHNIQUE: 3 view(s) of the foot. COMPARISON: August 26, 2021. FINDINGS: Normal talus, calcaneus, and tarsal bones. Normal visualized subtalar, talonavicular, calcaneocuboid, tarsal and tarsometatarsal articulations. Normal metatarsi. Mild arthrosis of the MTP and IP joints with hammertoe deformities, unchanged. Stable soft tissue swelling over the first digit with vascular calcification. RAD/Foot min 3 Views IMPRESSION: Stable osteoarthritic changes as described. No bone erosion or soft tissue gas. Electronically Signed: Bhaskar Butler, at 12:54 EDT ,
[2022-09-21 09:58] VITALS: BP 199/113; PULSE 99; TEMP 35.6; BMI 44.9
--- NOTE | 2022-09-21 12:41 | PN.PCM_ITS ---
History of Present Illness Date of Service: 09/21/22 Chief Complaint: Left plantar foot at base of great toe. History of Wound: Patient had an ulcer in this area that healed November 2021. He was seeing Dr. Rodriguez at that time. Patient's ulcer healed and then he went back to work wearing regular tennis shoes and the ulcer reopened not long after being healed. He has been placing antibiotic ointment on it and covering it with gauze. When he is more active, there is an increase in drainage. He is not experiencing much pain with it. Patient states that Dr. Rodriguez told him that if he went back to work right away the ulcer would reoccur. He is wearing a solomon boot that he has had for years when he had an injury. There is nothing off loading about it. He is currently on antibiotics for an infected tooth, he is not sure what antibiotic. He is not sure what his HgA1c is right now, it has been as high as 12.0. He is on new medications that are helping improve his blood sugars. Wound cultures collected on 09/14/22 were positive for Klebsiella pneumoniae, Proteus mirabilis, Staphylococcus aureus, Enterococcus faecalis, and Anaerobic cocci. He was started on Augmentin twice daily to treat these results. 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 Stable soft tissue swelling over the first digit with vascular calcification. No bone erosion or soft tissue gas. He currently denies fever, chills, nausea, vomiting. Progress of Wound: Left plantar toe with increased callus surrounding the ulcer base if the ulcer is pink. He needs to off load more. Objective Data Objective Data Vital Signs: Vital Signs Temp Pulse Resp BP O2 Del Method 96.1 F L 99 16 199/113 H Room Air 09/21/22 09:58 09/21/22 09:58 09/14/22 09:27 09/21/22 09:58 09/14/22 09:27 Oxygen Delivery Method Room Air Weight: 340 lb Body Mass Index (BMI) 44.9 Lab / Micro Data Micro: Microbiology 09/14/22 10:45 Wound Abcess - Left Foot Gram Stain - Final 09/14/22 10:45 Wound Abcess - Left Foot Wound Culture - Final Klebsiella pneumoniae sp pneum Proteus mirabilis Staphylococcus aureus Enterococcus faecalis 09/14/22 10:45 Wound Abcess - Left Foot Anaerobic Culture - Final Anaerobic cocci Charges/Coding Procedures Integumentary 111xxx-113xx: [id number] Maria Elena subq tissue 20 sq cm/< Debridement Note Debridement Note Wound debrided: Plantar foot proximal to great toe/hallux area Laterality: Left Wound Grade/Stage: Stage III Type of Debridement: Excisional debridement Anesthesia Used: 5% Lidocaine Gel Depth: Down to and including healthy tissue and in the subcutaneous layer Percentage of wound debrided: 100 Instrument Used: 5mm curette and #15 blade Tissue Removed: Devitalized tissue and slough Severity: Fat Layer Exposed Amount of bleeding with debridement: Mild Bleeding Controlled with: Pressure, Compression and gauze and Silver Nitrate Patient tolerated procedure: Patient tolerated procedure well Debridement Free Text: Silver nitrate to the one edge of the ulcer. Post-Debridement Measurements and Additional Note: Post-Debridement Measurements/Treatment - Nurse 1 - General Ulcer Assessment Start: 09/14/22 09:26 Freq: Status: Active Protocol: CASSIE Activity Type Activity Date Activity User E-sign Co-sign Detail Recorded Client Recorded Date Recorded By Document 09/14/22 09:27 BMF [id number] 09/14/22 09:47 BM Edit Result 09/14/22 09:27 BMF (1) [id number] 09/14/22 09:50 BMF Document 09/21/22 09:58 AK [id number] 09/21/22 10:05 AK (1) Pulse Rate (60-100) => 92 Pulse Location => Monitor Blood Pressure (90/60-120/80) => 197/101 H Blood Pressure Mean (mm Hg) => 133 Source => Monitor Position => Sitting 09/14/22 09/21/22 09:27 09:58 - Today's Visit Information Type of service Follow-up Visit Follow-up Visit (Physician/PHILATELIC CONSULTANT (Physician/PHILATELIC CONSULTANT ) ) Arrival Mode Ambulatory Ambulatory Transfer Assistance None Accompanied by Patient Identification Verified (Name & Yes Yes ) Patient Requires Transmission-Based No No Precautions Safety Precautions NA Height and Weight Height 6 ft 1 in Weight 340 lb Weight in Pounds 340.0 lbs Weight Measurement Method Estimated by Patient Body Mass Index (BMI) 44.9 44.9 BMI Classification Obese Obese BSA - Ward 2.70 Vital Signs Temperature (97.8 F-99.1 F) 96.8 F L 96.1 F L Temperature Source Temporal Temporal Pulse Rate (60-100) 92 99 Pulse Location Monitor Monitor Respiratory Rate (12-18) 16 Respiratory rate source Observation Oxygen Delivery Method Room Air Blood Pressure (90/60-120/80) 197/101 H 199/113 H Blood Pressure Mean (mm Hg) 133 141 Source Monitor Monitor Position Sitting History Since Last Visit- (Skip if this is Patient's initial visit) Have you changed medications since your No last visit? Any new allergies or adverse reactions No Had a fall/change in ADL's that may No increase risk of falls Signs or symptoms of abuse and/or No neglect since last visit Have you been in the hospital since your No last visit? Has dressing in place as prescribed Yes Has compression in place as prescribed Yes Has offloadiing in place as prescribed N/A Experienced any changes in pain level or No management Left Footwear Removable Cast Surgical Shoe Walker/Walking with pressure Boot relief insole Right Footwear Regular Shoe Regular Shoe Pain Scale: 0-10 Numeric Is Patient Pain Free? Yes Yes Lower Extremity Assessment/ Foot Assessment/ Toe Nail Assessment Left -Posterior Tibial Doppler Multiphasic -Dorsalis Pedis Doppler Multiphasic -Hair Growth on Legs No -Hair Growth on Toes No -Temperature of Extremity Warm -Capillary Refill Greater than 3 Seconds -Dependent Rubor No -Blanched when Elevated No -Lipodermatosclerosis No -Other Deformity No -Prior Foot Ulcer No -Charcot Joint No -Prior Amputation No -Thick No -Discolored No -Deformed No -Improper Length & Hygeine No Right -Posterior Tibial Doppler Multiphasic -Dorsalis Pedis Doppler Multiphasic -Extremity Color Normal -Hair Growth on Legs No -Hair Growth on Toes No -Temperature of Extremity Cool -Capillary Refill Greater than 3 Seconds -Dependent Rubor No -Blanched when Elevated No -Lipodermatosclerosis No -Other Deformity No -Prior Foot Ulcer No -Charcot Joint No -Prior Amputation No -Thick No -Discolored No -Deformed No -Improper Length & Hygeine No Neuropathy Assessment Feet - Top Side and Bottom <Entered> (a) Teaching Assessment Preferences Verbal,Written, Demonstration Readiness To Learn Good Willingness to Engage in Self Management Med Activies Readiness to Engage in Self Management Med Activities Anxiety Level Calm Cooperation Cooperative Perception Coherent Interest in Health Problem Asks Questions Education Importance Acknowledges Need Does Patient Smoke tobacco or other No substances Smoking Status Former smoker Is Patient Diabetic Yes Functional Assessment Recent Decline in Ability to Perform Denies Any Declines Culture/Yarsanism/Credit Consultant Cultural/Yarsanism Needs that may affect No Treatment Plan Would you allow our hospital varnish finisher to No meet you for the purpose of spiritual/ emotional support? Credit Consultant to contact place of jew No Teaching: Wound Center *Wound/Skin Impairment -Person Taught Patient TCC -Person Taught Patient *Infection -Person Taught Patient Diagnostic Tests Ordered -Person Taught Patient Dressing Your Wound -Person Taught Patient *Debridement -Person Taught Patient *Welcome to the Wound Center -Person Taught Patient (a) 1 - + 2 - + 3 - _ 4 - + WC - Nurse 1 - General Ulcer Measurement Start: 09/14/22 09:26 Freq: Status: Active Protocol: Activity Type Activity Date Activity User E-sign Co-sign Detail Recorded Client Recorded Date Recorded By Document 09/14/22 09:27 [facility] [id number] 09/14/22 09:47 [facility] Document 09/21/22 09:58 [place] [id number] 09/21/22 10:05 [place] 09/14/22 09/21/22 09:27 09:58 Wound Center Nurse 1 #4 L Plantar -Combined with other wound No -Current Size (cm) - Length 1.4 1.1 -Current Size (cm) - Width 1.4 0.9 -Current Size (cm) - Depth 0.6 0.4 -Total Square Cm 1.96 0.99 -Photo Taken Yes No -Tunneling No -Undermining/Tunneling No -Undermining/Tunneling Starts (O'clock 11 ) -Undermining/Tunneling Ends (O'clock) 1 -Maximum Distance (cm) 0.3 -Undermining/Tunneling Starts #2 (O' 4 clock) -Undermining/Tunneling Ends #2 (O' 6 clock) -Maximum Distance #2 (cm) 0.4 -Circular Undermining No -Classification - Thickness Full Thickness without Exposed Support Structure -Change in Wound Grade/Stage No -Exudate Amt Medium Medium -Exudate Type Serosanguineous Serosanguineous -Wound Margin Distinct, Distinct, Outline Outline Attached Attached -Granulation Amt Large (67-100%) Medium (34-66%) -Granulation Quality [place] -Slough/Fibrin Yes -Necrosis Amt None Present (0 Medium (34-66%) %) -Necrotic Tissue Type Adherent Slough -Structure Exposed N/A N/A -Texture (Bev-wound Skin Appearance) Callus Assessed,Callus -Moisture (Bev-wound Skin Appearance) Maceration No Abnormality, Assessed -Color (Bev-wound Skin Appearance) No Abnormality No Abnormality, Assessed -Temperature (Bev-wound Skin No Abnormality No Abnormality Appearance) (Pt Warm) (Pt Warm) -Tenderness on Palpation (Bev-wound No No Skin Appearance) -Ulcer Cleansing Soap and Water Rinsed/ Irrigated with Saline -Foul Odor after Cleansing No No -Anesthetic Used 5% Lidocaine 5% Lidocaine Gel Gel Right Calf (cm) 44.4 Right Ankle (cm) 23.5 Left Calf (cm) 43.2 Left Ankle (cm) 24.6 WC - Nurse 2 - General Ulcer CM Notes Start: 09/14/22 09:26 Freq: Status: Active Protocol: Activity Type Activity Date Activity User E-sign Co-sign Detail Recorded Client Recorded Date Recorded By Document 09/14/22 10:37 [id number] 09/14/22 10:50 Document 09/21/22 10:30 [id number] 09/21/22 10:39 09/14/22 09/21/22 10:37 10:30 Wound Center Nurse 2 #4 L Plantar -Time 10:37 10:31 -Correct Patient Yes Yes -Correct Side, Site, Position Yes Yes -Correct Procedure Yes Yes -Procedure Performed Yes Yes -Type of Procedure Debridement Debridement -Clinical Debridement Subcutaneous Subcutaneous -Tissue Removed Subcutaneous Subcutaneous -Post Debridement (cm) - Length 2.0 -Post Debridement (cm) - Width 1.2 -Post Debridement (cm) - Depth 0.2 -Total Square (Post) (cm) 2.40 -Area of Debridement (cm) - Length 2.0 -Area of Debridement (cm) - Width 1.2 -Total Square (Area) (cm) 2.40 -Tunneling No No -Undermining/Tunneling No No -Circular Undermining No No -Wound/Ulcer Outcome Not Healed Not Healed -Ulcer Cleansing Rinsed/ Rinsed/ Irrigated with Irrigated with Saline Saline -Foul Odor after Cleansing No No -Bioengineered Tissue No No -Bleeding Controlled with Pressure Pressure,Silver Nitrate -Treatment Response Procedure Procedure Tolerated Well Tolerated Well -Offloading No Yes -Type of Offloading Camwalker Wedge Shoe -Debridement - Subq, 1st 20sq cm Yes Yes Pain Scale: 0-10 Numeric Is Patient Pain Free? Yes Yes - Nurse 3 - General Ulcer D/C NN Start: 09/14/22 09:26 Freq: Status: Active Protocol: Activity Type Activity Date Activity User E-sign Co-sign Detail Recorded Client Recorded Date Recorded By Document 09/14/22 11:02 [facility] [id number] 09/14/22 11:03 [facility] Document 09/21/22 10:52 [facility] [id number] 09/21/22 10:52 [facility] 09/14/22 09/21/22 11:02 10:52 Wound Care Center Nurse 3 #4 L Plantar -Ulcer Cleansing Rinsed/ Rinsed/ Irrigated with Irrigated with Saline Saline -Foul Odor after Cleansing No No -Primary Dressing Applied Silvercel Silvercel -Primary Dressing Covered/Secured with Dry Gauze, Dry Gauze, Secured with Secured with Tape Tape -Silvercel 1 1 Treatment Response Procedure Procedure Tolerated Well Tolerated Well Pain Scale: 0-10 Numeric Is Patient Pain Free? Yes Yes - Visit Discharge Discharge Condition Stable Stable Ambulatory Status Ambulatory Ambulatory Transportation Private Auto Private Auto Accompanied by Assessment/Plan Assessment/Plan (1) Ulcer of toe of left foot: CODE(S): L97.529 - Non-pressure chronic ulcer of other part of left foot with unspecified severity QUALIFIERS: Non-pressure ulcer stage: with fat layer exposed Qualified Code(s): L97.522 - Non-pressure chronic ulcer of other part of left foot with fat layer exposed (2) Diabetic neuropathy: CODE(S): E11.40 - Type 2 diabetes mellitus with diabetic neuropathy, unspecified QUALIFIERS: Diabetes mellitus type: type 2 Diabetes mellitus complication detail: diabetic polyneuropathy Qualified Code(s): E11.42 - Type 2 diabetes mellitus with diabetic polyneuropathy (3) DM (diabetes mellitus), type 2 with complications: CODE(S): E11.8 - Type 2 diabetes mellitus with unspecified complications (4) History of osteomyelitis: CODE(S): Z87.39 - Personal history of other diseases of the musculoskeletal system and connective tissue PLAN: Plan Patient evaluated at the wound healing center today. Wound care - Silvercel covered with gauze daily after washing ulcer with soap and water and patting dry. Wound cultures collected on 09/14/22 were positive for Klebsiella pneumoniae, Proteus mirabilis, Staphylococcus aureus, Enterococcus faecalis, and Anaerobic cocci. He was started on Augmentin twice daily to treat these results. 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 Stable soft tissue swelling over the first digit with vascular calcification. No bone erosion or soft tissue gas. Encouraged patient to off load. He has been wearing his Darco wedge shoe that he had at home. Encouraged him to consider using either crutches or getting a knee roller to completely off load. Follow up two weeks since I'm out of town next week.
== END 2022-10-02 23:59 | disposition home or self-care (01) ==
LOC: WC 10:15
PROVIDERS: PCP Family Medicine; Referring Provider Nurse Practitioner Family; Visit Provider Nurse Practitioner Family
DX: E11.621 Type 2 diabetes mellitus with foot ulcer (principal); L97.522 Non-pressure chronic ulcer of other part of left foot with fat layer exposed; E11.42 Type 2 diabetes mellitus with diabetic polyneuropathy; Z79.4 Long term (current) use of insulin; B96.1 Klebsiella pneumoniae [K. pneumoniae] as the cause of diseases classified elsewhere; I10 Essential (primary) hypertension; M20.40 Other hammer toe(s) (acquired), unspecified foot; E78.5 Hyperlipidemia, unspecified; K21.9 Gastro-esophageal reflux disease without esophagitis; Z87.891 Personal history of nicotine dependence; Z87.39 Personal history of other diseases of the musculoskeletal system and connective tissue
CPT/HCPCS: 11042; 73630; 87070; 87075; 87077; 87186; 87205; 99214; G0463

== ENCOUNTER 2022-10-26 14:15 | Outpatient (RCR) | payer OTHER, SELFPAY ==
[2022-10-03 00:10] VITALS: BP 199/113; PULSE 99; RESP 16; TEMP 35.6; BMI 44.9
[2022-10-05 10:00] VITALS: BP 198/89; PULSE 102; RESP 20; TEMP 35.4; BMI 44.9
--- NOTE | 2022-10-05 12:31 | PCM.WC.PN ---
History of Present Illness Date of Service: 10/05/22 Chief Complaint: Left plantar foot at base of great toe. History of Wound: Patient had an ulcer in this area that healed November 2021. He was seeing Dr. Rodriguez at that time. Patient's ulcer healed and then he went back to work wearing regular tennis shoes and the ulcer reopened not long after being healed. He has been placing antibiotic ointment on it and covering it with gauze. When he is more active, there is an increase in drainage. He is not experiencing much pain with it. Patient states that Dr. Rodriguez told him that if he went back to work right away the ulcer would reoccur. He is wearing a [place] boot that he has had for years when he had an injury. There is nothing off loading about it. He is currently on antibiotics for an infected tooth, he is not sure what antibiotic. He is not sure what his HgA1c is right now, it has been as high as 12.0. He is on new medications that are helping improve his blood sugars. Wound cultures collected on 09/14/22 were positive for Klebsiella pneumoniae, Proteus mirabilis, Staphylococcus aureus, Enterococcus faecalis, and Anaerobic cocci. He was started on Augmentin twice daily to treat these results. 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 Stable soft tissue swelling over the first digit with vascular calcification. No bone erosion or soft tissue gas. He currently denies fever, chills, nausea, vomiting. Progress of Wound: Left plantar toe with increased callus surrounding the ulcer base if the ulcer is pink. He needs to off load more. Objective Data Objective Data Vital Signs: Vital Signs Temp Pulse Resp BP 95.8 F L 102 H 20 H 198/89 H 10/05/22 10:00 10/05/22 10:00 10/05/22 10:00 10/05/22 10:00 Weight: 340 lb Body Mass Index (BMI) 44.9 Charges/Coding Procedures Integumentary 111xxx-113xx: [id number] Maria Elena subq tissue 20 sq cm/< Procedures Musculoskeletal 20xxx-29xxx: [id number] APPLY RIGID LEG CAST (total contact cast) Debridement Note Debridement Note Wound debrided: Plantar foot proximal to great toe/hallux area Laterality: Left Wound Grade/Stage: Stage III Type of Debridement: Excisional debridement Anesthesia Used: 5% Lidocaine Gel Depth: Down to and including healthy tissue and in the subcutaneous layer Percentage of wound debrided: 100 Instrument Used: 5mm curette and #15 blade Tissue Removed: Devitalized tissue and slough Severity: Fat Layer Exposed Amount of bleeding with debridement: Mild Bleeding Controlled with: Pressure and Compression and gauze Patient tolerated procedure: Patient tolerated procedure well Debridement Free Text: Removed thickened callus surrounding the ulcer. Post-Debridement Measurements and Additional Note: Post-Debridement Measurements/Treatment - Nurse 1 - General Ulcer Assessment Start: 10/05/22 09:58 Freq: Status: Active Protocol: CASSIE Activity Type Activity Date Activity User E-sign Co-sign Detail Recorded Client Recorded Date Recorded By Document 10/05/22 10:00 DL [id number] 10/05/22 10:07 DL 10/05/22 10:00 WC - Today's Visit Information Type of service Follow-up Visit (Physician/DATA MANAGEMENT ANALYST ) Arrival Mode Ambulatory Transfer Assistance None Patient Identification Verified (Name & Yes ) Finger Stick Blood Sugar(mg/dl) (if not checked indicated): Blood Sugar Stated by Patient Height and Weight Body Mass Index (BMI) 44.9 BMI Classification Obese Vital Signs Temperature (97.8 F-99.1 F) 95.8 F L Temperature Source Temporal Pulse Rate (60-100) 102 H Pulse Location Monitor Respiratory Rate (12-18) 20 H Respiratory rate source Observation Blood Pressure (90/60-120/80) 198/89 H Blood Pressure Mean (mm Hg) 125 Source Monitor History Since Last Visit- (Skip if this is Patient's initial visit) Have you changed medications since your No last visit? Any new allergies or adverse reactions No Had a fall/change in ADL's that may No increase risk of falls Signs or symptoms of abuse and/or No neglect since last visit Have you been in the hospital since your No last visit? Has dressing in place as prescribed Yes Has compression in place as prescribed No Has offloadiing in place as prescribed Yes Experienced any changes in pain level or No management Left Footwear Surgical Shoe with pressure relief insole Pain Scale: 0-10 Numeric Is Patient Pain Free? Yes - Nurse 1 - General Ulcer Measurement Start: 10/05/22 09:58 Freq: Status: Active Protocol: Activity Type Activity Date Activity User E-sign Co-sign Detail Recorded Client Recorded Date Recorded By Document 10/05/22 10:00 DL [id number] 10/05/22 10:07 DL 10/05/22 10:00 Wound Center Nurse 1 #4 L Plantar -Current Size (cm) - Length 1.3 -Current Size (cm) - Width 0.8 -Current Size (cm) - Depth 0.4 -Total Square Cm 1.04 -Photo Taken Yes -Undermining/Tunneling Starts (O'clock 11 ) -Undermining/Tunneling Ends (O'clock) 6 -Maximum Distance (cm) 0.2 -Exudate Amt Medium -Exudate Type Serosanguineous -Wound Margin Thickened -Granulation Amt Large (67-100%) -Granulation Quality Red -Necrosis Amt Small (1-33%) -Necrotic Tissue Type Adherent Slough -Structure Exposed N/A -Texture (Bev-wound Skin Appearance) Callus,Scarring -Moisture (Bev-wound Skin Appearance) Dry/Scaly -Color (Bev-wound Skin Appearance) No Abnormality -Temperature (Bev-wound Skin No Abnormality Appearance) (Pt Warm) -Tenderness on Palpation (Bev-wound No Skin Appearance) -Ulcer Cleansing Soap and Water -Foul Odor after Cleansing No -Anesthetic Used 5% Lidocaine Gel WC - Nurse 2 - General Ulcer CM Notes Start: 10/05/22 09:58 Freq: Status: Active Protocol: Activity Type Activity Date Activity User E-sign Co-sign Detail Recorded Client Recorded Date Recorded By Document 10/05/22 10:05 HELIO [id number] 10/05/22 10:34 HELIO 10/05/22 10:05 Wound Center Nurse 2 -Time 10:06 -Correct Patient Yes -Correct Side, Site, Position Yes -Correct Procedure Yes -Procedure Performed Yes -Type of Procedure Debridement -Clinical Debridement Subcutaneous -Tissue Removed Subcutaneous -Post Debridement (cm) - Length 1.5 -Post Debridement (cm) - Width 1.2 -Post Debridement (cm) - Depth 0.2 -Total Square (Post) (cm) 1.80 -Area of Debridement (cm) - Length 1.5 -Area of Debridement (cm) - Width 1.2 -Total Square (Area) (cm) 1.80 -Tunneling No -Undermining/Tunneling No -Circular Undermining No -Wound/Ulcer Outcome Not Healed -Ulcer Cleansing Rinsed/ Irrigated with Saline -Foul Odor after Cleansing No -Bioengineered Tissue No -Bleeding Controlled with Pressure -Treatment Response Procedure Tolerated Well -Offloading Yes -Type of Offloading Total Contact Cast (TCC) - Left ($) -Debridement - Subq, 1st 20sq cm Yes Pain Scale: 0-10 Numeric Is Patient Pain Free? Yes Assessment/Plan Assessment/Plan (1) Ulcer of toe of left foot: CODE(S): L97.529 - Non-pressure chronic ulcer of other part of left foot with unspecified severity QUALIFIERS: Non-pressure ulcer stage: with fat layer exposed Qualified Code(s): L97.522 - Non-pressure chronic ulcer of other part of left foot with fat layer exposed (2) Diabetic neuropathy: CODE(S): E11.40 - Type 2 diabetes mellitus with diabetic neuropathy, unspecified QUALIFIERS: Diabetes mellitus complication detail: diabetic polyneuropathy Diabetes mellitus type: type 2 Qualified Code(s): E11.42 - Type 2 diabetes mellitus with diabetic polyneuropathy (3) DM (diabetes mellitus), type 2 with complications: CODE(S): E11.8 - Type 2 diabetes mellitus with unspecified complications (4) History of osteomyelitis: CODE(S): Z87.39 - Personal history of other diseases of the musculoskeletal system and connective tissue PLAN: Plan Patient evaluated at the wound healing center today. Wound care - Silvercel covered with gauze. Placed TCC on today to help with off loading. Discussed the importance of keeping the cast dry and trying to off load as much as possible Wound cultures collected on 09/14/22 were positive for Klebsiella pneumoniae, Proteus mirabilis, Staphylococcus aureus, Enterococcus faecalis, and Anaerobic cocci. He was started on Augmentin twice daily to treat these results. 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 Stable soft tissue swelling over the first digit with vascular calcification. No bone erosion or soft tissue gas. Encouraged patient to off load. He has been wearing his Darco wedge shoe that he had at home. Encouraged him to consider using either crutches or getting a knee roller to completely off load. Follow up one week. Call or come in sooner if develop any concerns.
[2022-10-12 09:36] VITALS: BP 180/108; PULSE 99; RESP 16; TEMP 35.5; BMI 44.9
--- NOTE | 2022-10-12 11:33 | PCM.WC.PN ---
History of Present Illness Date of Service: 10/12/22 Chief Complaint: Left plantar foot at base of great toe. History of Wound: Patient had an ulcer in this area that healed November 2021. He was seeing Dr. Rodriguez at that time. Patient's ulcer healed and then he went back to work wearing regular tennis shoes and the ulcer reopened not long after being healed. He has been placing antibiotic ointment on it and covering it with gauze. When he is more active, there is an increase in drainage. He is not experiencing much pain with it. Patient states that Dr. Rodriguez told him that if he went back to work right away the ulcer would reoccur. He is wearing a [place] boot that he has had for years when he had an injury. There is nothing off loading about it. He is currently on antibiotics for an infected tooth, he is not sure what antibiotic. He is not sure what his HgA1c is right now, it has been as high as 12.0. He is on new medications that are helping improve his blood sugars. Wound cultures collected on 09/14/22 were positive for Klebsiella pneumoniae, Proteus mirabilis, Staphylococcus aureus, Enterococcus faecalis, and Anaerobic cocci. He was started on Augmentin twice daily to treat these results. 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 Stable soft tissue swelling over the first digit with vascular calcification. No bone erosion or soft tissue gas. He currently denies fever, chills, nausea, vomiting. Progress of Wound: Left plantar toe ulcer is smaller in size. There is less callous present. The base of the ulcer is beefy pink. He is tolerating the TCC well and is doing a good job off loading. Objective Data Objective Data Vital Signs: Vital Signs Temp Pulse Resp BP O2 Del Method 96 F L 99 16 180/108 H Room Air 10/12/22 09:36 10/12/22 09:36 10/12/22 09:36 10/12/22 09:36 10/12/22 09:36 Oxygen Delivery Method Room Air Weight: 340 lb Body Mass Index (BMI) 44.9 Charges/Coding Procedures Integumentary 111xxx-113xx: 55654 Maria Elena subq tissue 20 sq cm/< Debridement Note Debridement Note Wound debrided: Plantar foot proximal to great toe/hallux area Laterality: Left Wound Grade/Stage: Stage III Type of Debridement: Excisional debridement Anesthesia Used: 5% Lidocaine Gel Depth: Down to and including healthy tissue and in the subcutaneous layer Percentage of wound debrided: 100 Instrument Used: #15 blade Tissue Removed: Devitalized tissue and slough Severity: Fat Layer Exposed Amount of bleeding with debridement: Mild Bleeding Controlled with: Pressure, Compression and gauze and Silver Nitrate (used on the one edge of the ulcer after debridement) Patient tolerated procedure: Patient tolerated procedure well Post-Debridement Measurements and Additional Note: Post-Debridement Measurements/Treatment - Nurse 1 - General Ulcer Assessment Start: 10/05/22 09:58 Freq: Status: Active Protocol: CASSIE Activity Type Activity Date Activity User E-sign Co-sign Detail Recorded Client Recorded Date Recorded By Document 10/05/22 10:00 DL [id number] 10/05/22 10:07 DL Document 10/12/22 09:36 [facility] [id number] 10/12/22 09:48 [facility] 10/05/22 10/12/22 10:00 09:36 - Today's Visit Information Type of service Follow-up Visit Follow-up Visit (Physician/ROUTER SETTER (Physician/ROUTER SETTER ) ) Arrival Mode Ambulatory Ambulatory Transfer Assistance None None Accompanied by Patient Identification Verified (Name & Yes Yes ) Patient Requires Transmission-Based No Precautions Finger Stick Blood Sugar(mg/dl) (if not checked indicated): Blood Sugar Stated by Patient Height and Weight Body Mass Index (BMI) 44.9 44.9 BMI Classification Obese Obese Vital Signs Temperature (97.8 F-99.1 F) 95.8 F L 96 F L Temperature Source Temporal Temporal Pulse Rate (60-100) 102 H 99 Pulse Location Monitor Monitor Respiratory Rate (12-18) 20 H 16 Respiratory rate source Observation Observation Oxygen Delivery Method Room Air Blood Pressure (90/60-120/80) 198/89 H 180/108 H Blood Pressure Mean (mm Hg) 125 132 Source Monitor Monitor Position Sitting Blood Pressure Location Right Arm Comment chkd bp twice. high both times . counseled and pt History Since Last Visit- (Skip if this is Patient's initial visit) Have you changed medications since your No No last visit? Any new allergies or adverse reactions No No Had a fall/change in ADL's that may No No increase risk of falls Signs or symptoms of abuse and/or No No neglect since last visit Have you been in the hospital since your No No last visit? Has dressing in place as prescribed Yes Yes Has compression in place as prescribed No N/A Has offloadiing in place as prescribed Yes Yes Experienced any changes in pain level or No No management Left Footwear Surgical Shoe Total Contact with pressure Cast relief insole Right Footwear Regular Shoe Pain Scale: 0-10 Numeric Is Patient Pain Free? Yes Yes WC - Nurse 1 - General Ulcer Measurement Start: 10/05/22 09:58 Freq: Status: Active Protocol: Activity Type Activity Date Activity User E-sign Co-sign Detail Recorded Client Recorded Date Recorded By Document 10/05/22 10:00 DL [id number] 10/05/22 10:07 DL Document 10/12/22 09:36 BM [id number] 10/12/22 09:48 BMF 10/05/22 10/12/22 10:00 09:36 Wound Center Nurse 1 #4 L Plantar -Combined with other wound No -Current Size (cm) - Length 1.3 1.1 -Current Size (cm) - Width 0.8 0.8 -Current Size (cm) - Depth 0.4 0.1 -Total Square Cm 1.04 0.88 -Date of Last Picture (Recall this 10/12/22 field) -Photo Taken Yes Yes -Epithelialization Small 1-33% -Tunneling No -Undermining/Tunneling No -Undermining/Tunneling Starts (O'clock 11 ) -Undermining/Tunneling Ends (O'clock) 6 -Maximum Distance (cm) 0.2 -Circular Undermining No -Exudate Amt Medium Medium -Exudate Type Serosanguineous Serosanguineous -Wound Margin Thickened Distinct, Outline Attached -Granulation Amt Large (67-100%) Large (67-100%) -Granulation Quality [place] -Slough/Fibrin No -Necrosis Amt Small (1-33%) None Present (0 %) -Necrotic Tissue Type Adherent Slough -Structure Exposed N/A -Texture (Bev-wound Skin Appearance) Callus,Scarring Assessed, Scarring -Moisture (Bev-wound Skin Appearance) Dry/Scaly Assessed -Color (Bev-wound Skin Appearance) No Abnormality Assessed -Temperature (Bev-wound Skin No Abnormality No Abnormality Appearance) (Pt Warm) (Pt Warm) -Tenderness on Palpation (Bev-wound No No Skin Appearance) -Ulcer Cleansing Soap and Water Soap and Water -Foul Odor after Cleansing No No -Anesthetic Used 5% Lidocaine 5% Lidocaine Gel Gel LARISSA - Nurse 2 - General Ulcer CM Notes Start: 10/05/22 09:58 Freq: Status: Active Protocol: Activity Type Activity Date Activity User E-sign Co-sign Detail Recorded Client Recorded Date Recorded By Document 10/05/22 10:05 [id number] 10/05/22 10:34 Document 10/12/22 09:51 [id number] 10/12/22 10:11 10/05/22 10/12/22 10:05 09:51 Wound Center Nurse 2 #4 L Plantar -Time 10:06 09:52 -Correct Patient Yes Yes -Correct Side, Site, Position Yes Yes -Correct Procedure Yes Yes -Procedure Performed Yes Yes -Type of Procedure Debridement Debridement -Clinical Debridement Subcutaneous Subcutaneous -Tissue Removed Subcutaneous Subcutaneous -Post Debridement (cm) - Length 1.5 1.4 -Post Debridement (cm) - Width 1.2 1.0 -Post Debridement (cm) - Depth 0.2 0.1 -Total Square (Post) (cm) 1.80 1.40 -Area of Debridement (cm) - Length 1.5 1.4 -Area of Debridement (cm) - Width 1.2 1.0 -Total Square (Area) (cm) 1.80 1.40 -Tunneling No No -Undermining/Tunneling No No -Circular Undermining No No -Wound/Ulcer Outcome Not Healed Not Healed -Ulcer Cleansing Rinsed/ Rinsed/ Irrigated with Irrigated with Saline Saline -Foul Odor after Cleansing No No -Bioengineered Tissue No No -Bleeding Controlled with Pressure Pressure,Silver Nitrate -Treatment Response Procedure Procedure Tolerated Well Tolerated Well -Offloading Yes Yes -Type of Offloading Total Contact Total Contact Cast (TCC) - Cast (TCC) - Left ($) Left ($) -Debridement - Subq, 1st 20sq cm Yes Yes Pain Scale: 0-10 Numeric Is Patient Pain Free? Yes Yes LARISSA - Nurse 3 - General Ulcer D/C NN Start: 10/05/22 09:58 Freq: Status: Active Protocol: Activity Type Activity Date Activity User E-sign Co-sign Detail Recorded Client Recorded Date Recorded By Document 10/05/22 13:56 PL [id number] 10/05/22 13:57 PL 10/05/22 13:56 Is Patient Pain Free? Yes Assessment/Plan Assessment/Plan (1) Ulcer of toe of left foot: CODE(S): L97.529 - Non-pressure chronic ulcer of other part of left foot with unspecified severity QUALIFIERS: Non-pressure ulcer stage: with fat layer exposed Qualified Code(s): L97.522 - Non-pressure chronic ulcer of other part of left foot with fat layer exposed (2) Diabetic neuropathy: CODE(S): E11.40 - Type 2 diabetes mellitus with diabetic neuropathy, unspecified QUALIFIERS: Diabetes mellitus type: type 2 Diabetes mellitus complication detail: diabetic polyneuropathy Qualified Code(s): E11.42 - Type 2 diabetes mellitus with diabetic polyneuropathy (3) DM (diabetes mellitus), type 2 with complications: CODE(S): E11.8 - Type 2 diabetes mellitus with unspecified complications (4) History of osteomyelitis: CODE(S): Z87.39 - Personal history of other diseases of the musculoskeletal system and connective tissue PLAN: Plan Patient evaluated at the wound healing center today. Wound care - [place] covered with gauze. Placed TCC on today to help with off loading. Discussed the importance of keeping the cast dry and trying to off load as much as possible. He is tolerating the cast well and trying to off load as much as possible. Wound cultures collected on 09/14/22 were positive for Klebsiella pneumoniae, Proteus mirabilis, Staphylococcus aureus, Enterococcus faecalis, and Anaerobic cocci. He was started on Augmentin twice daily to treat these results. 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 Stable soft tissue swelling over the first digit with vascular calcification. No bone erosion or soft tissue gas. Encouraged him to consider using either crutches or getting a knee roller to completely off load. He would benefit from an advanced wound healing product such as Epifix to help expedite his wound healing. Will apply to his insurance company for approval. Follow up one week. Call or come in sooner if develop any concerns.
[2022-10-19 09:59] VITALS: BP 194/115; PULSE 94; RESP 20; TEMP 36; BMI 44.9
--- NOTE | 2022-10-19 12:08 | PCM.WC.PN ---
History of Present Illness Date of Service: 10/19/22 Chief Complaint: Left plantar foot at base of great toe. History of Wound: Patient had an ulcer in this area that healed November 2021. He was seeing Dr. Rodriguez at that time. Patient's ulcer healed and then he went back to work wearing regular tennis shoes and the ulcer reopened not long after being healed. He has been placing antibiotic ointment on it and covering it with gauze. When he is more active, there is an increase in drainage. He is not experiencing much pain with it. Patient states that Dr. Rodriguez told him that if he went back to work right away the ulcer would reoccur. He is wearing a [place] boot that he has had for years when he had an injury. There is nothing off loading about it. He is currently on antibiotics for an infected tooth, he is not sure what antibiotic. He is not sure what his HgA1c is right now, it has been as high as 12.0. He is on new medications that are helping improve his blood sugars. Wound cultures collected on 09/14/22 were positive for Klebsiella pneumoniae, Proteus mirabilis, Staphylococcus aureus, Enterococcus faecalis, and Anaerobic cocci. He was started on Augmentin twice daily to treat these results. 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 Stable soft tissue swelling over the first digit with vascular calcification. No bone erosion or soft tissue gas. He currently denies fever, chills, nausea, vomiting. Progress of Wound: Left plantar toe ulcer is smaller in size. There is no callous present this week. The base of the ulcer is beefy pink. He is tolerating the TCC well and is doing a good job off loading. He was approved for Epifix which the first application was applied today. Objective Data Objective Data Vital Signs: Vital Signs Temp Pulse Resp BP O2 Del Method 96.8 F L 94 20 H 194/115 H Room Air 10/19/22 09:59 10/19/22 09:59 10/19/22 09:59 10/19/22 09:59 10/12/22 09:36 Oxygen Delivery Method Room Air Weight: 340 lb Body Mass Index (BMI) 44.9 Charges/Coding Procedures Integumentary 111xxx-113xx: 61516 Maria Elena subq tissue 20 sq cm/< Procedures Musculoskeletal 20xxx-29xxx: 94122 APPLY RIGID LEG CAST (Total Contact Cast (TCC) to right leg) Debridement Note Debridement Note Wound debrided: Plantar foot proximal to great toe/hallux area Laterality: Left Wound Grade/Stage: Stage III Type of Debridement: Excisional debridement Anesthesia Used: 5% Lidocaine Gel Depth: Down to and including healthy tissue and in the subcutaneous layer Percentage of wound debrided: 100 Instrument Used: 5mm curette Tissue Removed: Devitalized tissue and slough Severity: Fat Layer Exposed Amount of bleeding with debridement: Mild Bleeding Controlled with: Pressure and Compression and gauze Patient tolerated procedure: Patient tolerated procedure well Post-Debridement Measurements and Additional Note: Post-Debridement Measurements/Treatment - Nurse 1 - General Ulcer Assessment Start: 10/05/22 09:58 Freq: Status: Active Protocol: CASSIE Activity Type Activity Date Activity User E-sign Co-sign Detail Recorded Client Recorded Date Recorded By Document 10/05/22 10:00 DL [id number] 10/05/22 10:07 DL Document 10/12/22 09:[address] [facility] [id number] 10/12/22 09:48 BMF Document 10/19/22 09:59 DL [id number] 10/19/22 10:09 DL 10/05/22 10/12/22 10/19/22 10:00 09:36 09:59 - Today's Visit Information Type of service Follow-up Visit Follow-up Visit Follow-up Visit (Physician/PHOTOGRAPHER'S ASSISTANT (Physician/PHOTOGRAPHER'S ASSISTANT (Physician/PHOTOGRAPHER'S ASSISTANT ) ) ) Arrival Mode Ambulatory Ambulatory Ambulatory Transfer Assistance None None None Accompanied by Patient Identification Verified (Name & Yes Yes Yes ) Patient Requires Transmission-Based No No Precautions Finger Stick Blood Sugar(mg/dl) (if not checked not checked indicated): Blood Sugar Stated by Patient Height and Weight Body Mass Index (BMI) 44.9 44.9 44.9 BMI Classification Obese Obese Obese Vital Signs Temperature (97.8 F-99.1 F) 95.8 F L 96 F L 96.8 F L Temperature Source Temporal Temporal Temporal Pulse Rate (60-100) 102 H 99 94 Pulse Location Monitor Monitor Monitor Respiratory Rate (12-18) 20 H 16 20 H Respiratory rate source Observation Observation Observation Oxygen Delivery Method Room Air Blood Pressure (90/60-120/80) 198/89 H 180/108 H 194/115 H Blood Pressure Mean (mm Hg) 125 132 141 Source Monitor Monitor Position Sitting Blood Pressure Location Right Arm Comment chkd bp twice. high both times . counseled and pt History Since Last Visit- (Skip if this is Patient's initial visit) Have you changed medications since your No No No last visit? Any new allergies or adverse reactions No No No Had a fall/change in ADL's that may No No No increase risk of falls Signs or symptoms of abuse and/or No No No neglect since last visit Have you been in the hospital since your No No No last visit? Has dressing in place as prescribed Yes Yes Yes Has compression in place as prescribed No N/A N/A Has offloadiing in place as prescribed Yes Yes Yes Experienced any changes in pain level or No No No management Left Footwear Surgical Shoe Total Contact Total Contact with pressure Cast Cast relief insole Right Footwear Regular Shoe Pain Scale: 0-10 Numeric Is Patient Pain Free? Yes Yes Yes WC - Nurse 1 - General Ulcer Measurement Start: 10/05/22 09:58 Freq: Status: Active Protocol: Activity Type Activity Date Activity User E-sign Co-sign Detail Recorded Client Recorded Date Recorded By Document 10/05/22 10:00 DL [id number] 10/05/22 10:07 Document 10/12/22 09:[address] [facility] [id number] 10/12/22 09:[address] [facility] Document 10/19/22 09:59 DL [id number] 10/19/22 10:09 DL 10/05/22 10/12/22 10/19/22 10:00 09:36 09:59 Wound Center Nurse 1 #4 L Plantar -Combined with other wound No -Current Size (cm) - Length 1.3 1.1 0.8 -Current Size (cm) - Width 0.8 0.8 0.5 -Current Size (cm) - Depth 0.4 0.1 0.1 -Total Square Cm 1.04 0.88 0.40 -Date of Last Picture (Recall this 10/12/22 field) -Photo Taken Yes Yes Yes -Epithelialization Small 1-33% -Tunneling No -Undermining/Tunneling No -Undermining/Tunneling Starts (O'clock 11 ) -Undermining/Tunneling Ends (O'clock) 6 -Maximum Distance (cm) 0.2 -Circular Undermining No -Exudate Amt Medium Medium Medium -Exudate Type Serosanguineous Serosanguineous Serosanguineous -Wound Margin Thickened Distinct, Distinct, Outline Outline Attached Attached -Granulation Amt Large (67-100%) Large (67-100%) Large (67-100%) -Granulation Quality [place] Red -Slough/Fibrin No -Necrosis Amt Small (1-33%) None Present (0 None Present (0 %) %) -Necrotic Tissue Type Adherent Slough -Structure Exposed N/A N/A -Texture (Bev-wound Skin Appearance) Callus,Scarring Assessed, Scarring Scarring -Moisture (Bev-wound Skin Appearance) Dry/Scaly Assessed No Abnormality -Color (Bev-wound Skin Appearance) No Abnormality Assessed Hemosiderin Staining -Temperature (Bev-wound Skin No Abnormality No Abnormality No Abnormality Appearance) (Pt Warm) (Pt Warm) (Pt Warm) -Tenderness on Palpation (Bev-wound No No No Skin Appearance) -Ulcer Cleansing Soap and Water Soap and Water Soap and Water -Foul Odor after Cleansing No No No -Anesthetic Used 5% Lidocaine 5% Lidocaine 4% Lidocaine Gel Gel Solution WC - Nurse 2 - General Ulcer CM Notes Start: 10/05/22 09:58 Freq: Status: Active Protocol: Activity Type Activity Date Activity User E-sign Co-sign Detail Recorded Client Recorded Date Recorded By Document 10/05/22 10:05 [id number] 10/05/22 10:34 Document 10/12/22 09:51 [id number] 10/12/22 10:11 Document 10/19/22 10:16 [id number] 10/19/22 10:30 10/05/22 10/12/22 10/19/22 10:05 09:51 10:16 Wound Center Nurse 2 #4 L Plantar -Time 10:06 09:52 10:16 -Correct Patient Yes Yes Yes -Correct Side, Site, Position Yes Yes Yes -Correct Procedure Yes Yes Yes -Procedure Performed Yes Yes Yes -Type of Procedure Debridement Debridement Debridement -Clinical Debridement Subcutaneous Subcutaneous Subcutaneous -Tissue Removed Subcutaneous Subcutaneous Subcutaneous -Post Debridement (cm) - Length 1.5 1.4 1.1 -Post Debridement (cm) - Width 1.2 1.0 0.8 -Post Debridement (cm) - Depth 0.2 0.1 0.1 -Total Square (Post) (cm) 1.80 1.40 0.88 -Area of Debridement (cm) - Length 1.5 1.4 1.1 -Area of Debridement (cm) - Width 1.2 1.0 0.8 -Total Square (Area) (cm) 1.80 1.40 0.88 -Tunneling No No No -Undermining/Tunneling No No -Circular Undermining No No No -Wound/Ulcer Outcome Not Healed Not Healed Not Healed -Ulcer Cleansing Rinsed/ Rinsed/ Rinsed/ Irrigated with Irrigated with Irrigated with Saline Saline Saline -Foul Odor after Cleansing No No No -Bioengineered Tissue No No Yes -Type of Bioengineered Tissue Epifix 18mm Disc -Expiration Date 08/05/27 -Product Lot Number [id number] -Percent Used 100 -Lot number of Saline Used [id number] -Bleeding Controlled with Pressure Pressure,Silver Pressure Nitrate -Treatment Response Procedure Procedure Procedure Tolerated Well Tolerated Well Tolerated Well -Offloading Yes Yes Yes -Type of Offloading Total Contact Total Contact Total Contact Cast (TCC) - Cast (TCC) - Cast (TCC) - Left ($) Left ($) Left ($) -Debridement - Subq, 1st 20sq cm Yes Yes No -Apply Skin Sub - 1st 25 sq cm - Feet 1 -Epifix 18mm Disc 3 Pain Scale: 0-10 Numeric Is Patient Pain Free? Yes Yes Yes - Nurse 3 - General Ulcer D/C NN Start: 10/05/22 09:58 Freq: Status: Active Protocol: Activity Type Activity Date Activity User E-sign Co-sign Detail Recorded Client Recorded Date Recorded By Document 10/05/22 13:56 PL [id number] 10/05/22 13:57 PL Document 10/19/22 10:45 DL [id number] 10/19/22 10:48 DL 10/05/22 10/19/22 13:56 10:45 Wound Care Center Nurse 3 #4 L Plantar -Primary Dressing Applied Mepilex Border -Other Dressing Epifix/foam -Other Covering fluffed gauze/ TCC CASt -Mepilex Border 1 Treatment Response Procedure Tolerated Well Pain Scale: 0-10 Numeric Is Patient Pain Free? Yes Yes WC - Visit Discharge Discharge Condition Stable Ambulatory Status Ambulatory, Walker Transportation Private Auto Assessment/Plan Assessment/Plan (1) Ulcer of toe of left foot: CODE(S): L97.529 - Non-pressure chronic ulcer of other part of left foot with unspecified severity QUALIFIERS: Non-pressure ulcer stage: with fat layer exposed Qualified Code(s): L97.522 - Non-pressure chronic ulcer of other part of left foot with fat layer exposed (2) Diabetic neuropathy: CODE(S): E11.40 - Type 2 diabetes mellitus with diabetic neuropathy, unspecified QUALIFIERS: Diabetes mellitus complication detail: diabetic polyneuropathy Diabetes mellitus type: type 2 Qualified Code(s): E11.42 - Type 2 diabetes mellitus with diabetic polyneuropathy (3) DM (diabetes mellitus), type 2 with complications: CODE(S): E11.8 - Type 2 diabetes mellitus with unspecified complications (4) History of osteomyelitis: CODE(S): Z87.39 - Personal history of other diseases of the musculoskeletal system and connective tissue PLAN: Plan Patient evaluated at the wound healing center today. Wound care - Epifix #1 applied today, topped with wound veil that was secured with steri strips after placing skin protectant surrounding the ulcer. Topped with dry gauze. Reapplied TCC on today to help with off loading. Discussed the importance of keeping the cast dry and trying to off load as much as possible. He is tolerating the cast well and there is an improvement in the ulcer with him off loading. Wound cultures collected on 09/14/22 were positive for Klebsiella pneumoniae, Proteus mirabilis, Staphylococcus aureus, Enterococcus faecalis, and Anaerobic cocci. He was started on Augmentin twice daily to treat these results. 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 Stable soft tissue swelling over the first digit with vascular calcification. No bone erosion or soft tissue gas. Encouraged him to consider using either crutches or getting a knee roller to completely off load. Follow up one week. Call or come in sooner if develop any concerns.
[2022-10-26 13:49] VITALS: BP 154/96; PULSE 102; RESP 16; TEMP 36.2; BMI 44.9
--- NOTE | 2022-10-26 15:28 | PCM.WC.PN ---
History of Present Illness Date of Service: 10/26/22 Chief Complaint: Left plantar foot at base of great toe. History of Wound: Patient had an ulcer in this area that healed November 2021. He was seeing Dr. Rodriguez at that time. Patient's ulcer healed and then he went back to work wearing regular tennis shoes and the ulcer reopened not long after being healed. He has been placing antibiotic ointment on it and covering it with gauze. When he is more active, there is an increase in drainage. He is not experiencing much pain with it. Patient states that Dr. Rodriguez told him that if he went back to work right away the ulcer would reoccur. He is wearing a [place] boot that he has had for years when he had an injury. There is nothing off loading about it. He is currently on antibiotics for an infected tooth, he is not sure what antibiotic. He is not sure what his HgA1c is right now, it has been as high as 12.0. He is on new medications that are helping improve his blood sugars. Wound cultures collected on 09/14/22 were positive for Klebsiella pneumoniae, Proteus mirabilis, Staphylococcus aureus, Enterococcus faecalis, and Anaerobic cocci. He was started on Augmentin twice daily to treat these results. 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 Stable soft tissue swelling over the first digit with vascular calcification. No bone erosion or soft tissue gas. He currently denies fever, chills, nausea, vomiting. Progress of Wound: Left plantar toe ulcer is smaller in size. There is no callous present this week. The base of the ulcer is beefy pink. He is tolerating the TCC well and is doing a good job off loading. He was approved for Epifix which the second application was applied today. Objective Data Objective Data Vital Signs: Vital Signs Temp Pulse Resp BP O2 Del Method 97.2 F L 102 H 16 154/96 H Room Air 10/26/22 13:49 10/26/22 13:49 10/26/22 13:49 10/26/22 13:49 10/26/22 13:49 Oxygen Delivery Method Room Air Weight: 340 lb Body Mass Index (BMI) 44.9 Charges/Coding Procedures Integumentary 150xxx-152xx: 44142 Skin sub graft face/nk/hf/g Procedures Musculoskeletal 20xxx-29xxx: 14881 APPLY RIGID LEG CAST (left TCC (total contact cast)) Debridement Note Debridement Note Wound debrided: Plantar foot proximal to great toe/hallux area Laterality: Left Wound Grade/Stage: Stage III Type of Debridement: Excisional debridement Anesthesia Used: 5% Lidocaine Gel Depth: Down to and including healthy tissue and in the subcutaneous layer Percentage of wound debrided: 100 Instrument Used: 5mm curette Tissue Removed: Devitalized tissue and slough Severity: Fat Layer Exposed Amount of bleeding with debridement: Mild Bleeding Controlled with: Pressure and Compression and gauze Patient tolerated procedure: Patient tolerated procedure well Post-Debridement Measurements and Additional Note: Post-Debridement Measurements/Treatment - Nurse 1 - General Ulcer Assessment Start: 10/05/22 09:58 Freq: Status: Active Protocol: LARISSA.LOWHEATHER Activity Type Activity Date Activity User E-sign Co-sign Detail Recorded Client Recorded Date Recorded By Document 10/05/22 10:00 DL [id number] 10/05/22 10:07 DL Document 10/12/22 09:36 [facility] [id number] 10/12/22 09:48 BMF Document 10/19/22 09:59 DL [id number] 10/19/22 10:09 DL Document 10/26/22 13:49 MW [id number] 10/26/22 13:56 MW 10/05/22 10/12/22 10/19/22 10:00 09:36 09:59 - Today's Visit Information Type of service Follow-up Visit Follow-up Visit Follow-up Visit (Physician/BOAT LOADER HELPER (Physician/BOAT LOADER HELPER (Physician/BOAT LOADER HELPER ) ) ) Arrival Mode Ambulatory Ambulatory Ambulatory Transfer Assistance None None None Accompanied by Patient Identification Verified (Name & Yes Yes Yes ) Patient Requires Transmission-Based No No Precautions Finger Stick Blood Sugar(mg/dl) (if not checked not checked indicated): Blood Sugar Stated by Patient Height and Weight Body Mass Index (BMI) 44.9 44.9 44.9 BMI Classification Obese Obese Obese Vital Signs Temperature (97.8 F-99.1 F) 95.8 F L 96 F L 96.8 F L Temperature Source Temporal Temporal Temporal Pulse Rate (60-100) 102 H 99 94 Pulse Location Monitor Monitor Monitor Respiratory Rate (12-18) 20 H 16 20 H Respiratory rate source Observation Observation Observation Oxygen Delivery Method Room Air Blood Pressure (90/60-120/80) 198/89 H 180/108 H 194/115 H Blood Pressure Mean (mm Hg) 125 132 141 Source Monitor Monitor Position Sitting Blood Pressure Location Right Arm Comment chkd bp twice. high both times . counseled and pt History Since Last Visit- (Skip if this is Patient's initial visit) Have you changed medications since your No No No last visit? Any new allergies or adverse reactions No No No Had a fall/change in ADL's that may No No No increase risk of falls Signs or symptoms of abuse and/or No No No neglect since last visit Have you been in the hospital since your No No No last visit? Has dressing in place as prescribed Yes Yes Yes Has compression in place as prescribed No N/A N/A Has offloadiing in place as prescribed Yes Yes Yes Experienced any changes in pain level or No No No management Left Footwear Surgical Shoe Total Contact Total Contact with pressure Cast Cast relief insole Right Footwear Regular Shoe Pain Scale: 0-10 Numeric Is Patient Pain Free? Yes Yes Yes 10/26/22 13:49 WC - Today's Visit Information Type of service Follow-up Visit (Physician/BOAT LOADER HELPER ) Arrival Mode Ambulatory Transfer Assistance None Accompanied by step daughter Patient Identification Verified (Name & Yes ) Patient Requires Transmission-Based No Precautions Finger Stick Blood Sugar(mg/dl) (if 220 indicated): Blood Sugar Stated by Patient Height and Weight Body Mass Index (BMI) 44.9 BMI Classification Obese Vital Signs Temperature (97.8 F-99.1 F) 97.2 F L Temperature Source Temporal Pulse Rate (60-100) 102 H Pulse Location Monitor Respiratory Rate (12-18) 16 Respiratory rate source Observation Oxygen Delivery Method Room Air Blood Pressure (90/60-120/80) 154/96 H Blood Pressure Mean (mm Hg) 115 Source Monitor Position Sitting Blood Pressure Location Left Forearm Comment History Since Last Visit- (Skip if this is Patient's initial visit) Have you changed medications since your No last visit? Any new allergies or adverse reactions No Had a fall/change in ADL's that may No increase risk of falls Signs or symptoms of abuse and/or No neglect since last visit Have you been in the hospital since your No last visit? Has dressing in place as prescribed Yes Has compression in place as prescribed Yes Has offloadiing in place as prescribed N/A Experienced any changes in pain level or No management Left Footwear Total Contact Cast Right Footwear Regular Shoe Pain Scale: 0-10 Numeric Is Patient Pain Free? Yes WC - Nurse 1 - General Ulcer Measurement Start: 10/05/22 09:58 Freq: Status: Active Protocol: Activity Type Activity Date Activity User E-sign Co-sign Detail Recorded Client Recorded Date Recorded By Document 10/05/22 10:00 DL [id number] 10/05/22 10:07 DL Document 10/12/22 09:36 BMF [id number] 10/12/22 09:48 BMF Document 10/19/22 09:59 DL [id number] 10/19/22 10:09 DL Document 10/26/22 13:49 MW [id number] 10/26/22 13:56 MW 10/05/22 10/12/22 10/19/22 10:00 09:36 09:59 Wound Center Nurse 1 #4 L Plantar -Combined with other wound No -Current Size (cm) - Length 1.3 1.1 0.8 -Current Size (cm) - Width 0.8 0.8 0.5 -Current Size (cm) - Depth 0.4 0.1 0.1 -Total Square Cm 1.04 0.88 0.40 -Date of Last Picture (Recall this 10/12/22 field) -Photo Taken Yes Yes Yes -Epithelialization Small 1-33% -Tunneling No -Undermining/Tunneling No -Undermining/Tunneling Starts (O'clock 11 ) -Undermining/Tunneling Ends (O'clock) 6 -Maximum Distance (cm) 0.2 -Circular Undermining No -Exudate Amt Medium Medium Medium -Exudate Type Serosanguineous Serosanguineous Serosanguineous -Wound Margin Thickened Distinct, Distinct, Outline Outline Attached Attached -Granulation Amt Large (67-100%) Large (67-100%) Large (67-100%) -Granulation Quality Red [place] Red -Slough/Fibrin No -Necrosis Amt Small (1-33%) None Present (0 None Present (0 %) %) -Necrotic Tissue Type Adherent Slough -Structure Exposed N/A N/A -Texture (Bev-wound Skin Appearance) Callus,Scarring Assessed, Scarring Scarring -Moisture (Bev-wound Skin Appearance) Dry/Scaly Assessed No Abnormality -Color (Bev-wound Skin Appearance) No Abnormality Assessed Hemosiderin Staining -Temperature (Bev-wound Skin No Abnormality No Abnormality No Abnormality Appearance) (Pt Warm) (Pt Warm) (Pt Warm) -Tenderness on Palpation (Bev-wound No No No Skin Appearance) -Ulcer Cleansing Soap and Water Soap and Water Soap and Water -Foul Odor after Cleansing No No No -Anesthetic Used 5% Lidocaine 5% Lidocaine 4% Lidocaine Gel Gel Solution Lower Limb Edema Present Left Calf (cm) Left Ankle (cm) 10/26/22 13:49 Wound Center Nurse 1 #4 L Plantar -Combined with other wound No -Current Size (cm) - Length 0.7 -Current Size (cm) - Width 0.3 -Current Size (cm) - Depth 0.2 -Total Square Cm 0.21 -Date of Last Picture (Recall this 10/26/22 field) -Photo Taken Yes -Epithelialization Small 1-33% -Tunneling No -Undermining/Tunneling No -Undermining/Tunneling Starts (O'clock ) -Undermining/Tunneling Ends (O'clock) -Maximum Distance (cm) -Circular Undermining No -Exudate Amt Medium -Exudate Type Serosanguineous -Wound Margin Flat & Intact -Granulation Amt Small (1-33%) -Granulation Quality [place] -Slough/Fibrin -Necrosis Amt Large (67-100%) -Necrotic Tissue Type Adherent Slough -Structure Exposed N/A -Texture (Bev-wound Skin Appearance) Assessed, Scarring -Moisture (Bev-wound Skin Appearance) Assessed, Maceration -Color (Bev-wound Skin Appearance) No Abnormality, Assessed -Temperature (Bev-wound Skin No Abnormality Appearance) (Pt Warm) -Tenderness on Palpation (Bev-wound No Skin Appearance) -Ulcer Cleansing Soap and Water -Foul Odor after Cleansing No -Anesthetic Used 5% Lidocaine Gel Lower Limb Edema Present Yes Left Calf (cm) 42.9 Left Ankle (cm) 23.8 WC - Nurse 2 - General Ulcer CM Notes Start: 10/05/22 09:58 Freq: Status: Active Protocol: Activity Type Activity Date Activity User E-sign Co-sign Detail Recorded Client Recorded Date Recorded By Document 10/05/22 10:05 [id number] 10/05/22 10:34 Document 10/12/22 09:51 JF [id number] 10/12/22 10:11 Document 10/19/22 10:16 [id number] 10/19/22 10:30 Document 10/26/22 14:16 [id number] 10/26/22 14:24 10/05/22 10/12/22 10/19/22 10:05 09:51 10:16 Wound Center Nurse 2 #4 L Plantar -Time 10:06 09:52 10:16 -Correct Patient Yes Yes Yes -Correct Side, Site, Position Yes Yes Yes -Correct Procedure Yes Yes Yes -Procedure Performed Yes Yes Yes -Type of Procedure Debridement Debridement Debridement -Clinical Debridement Subcutaneous Subcutaneous Subcutaneous -Tissue Removed Subcutaneous Subcutaneous Subcutaneous -Post Debridement (cm) - Length 1.5 1.4 1.1 -Post Debridement (cm) - Width 1.2 1.0 0.8 -Post Debridement (cm) - Depth 0.2 0.1 0.1 -Total Square (Post) (cm) 1.80 1.40 0.88 -Area of Debridement (cm) - Length 1.5 1.4 1.1 -Area of Debridement (cm) - Width 1.2 1.0 0.8 -Total Square (Area) (cm) 1.80 1.40 0.88 -Tunneling No No No -Undermining/Tunneling No No -Circular Undermining No No No -Wound/Ulcer Outcome Not Healed Not Healed Not Healed -Ulcer Cleansing Rinsed/ Rinsed/ Rinsed/ Irrigated with Irrigated with Irrigated with Saline Saline Saline -Foul Odor after Cleansing No No No -Bioengineered Tissue No No Yes -Type of Bioengineered Tissue Epifix 18mm Disc -Expiration Date 08/05/27 -Product Lot Number [id number] -Percent Used 100 -Lot number of Saline Used [id number] -Bleeding Controlled with Pressure Pressure,Silver Pressure Nitrate -Treatment Response Procedure Procedure Procedure Tolerated Well Tolerated Well Tolerated Well -Offloading Yes Yes Yes -Type of Offloading Total Contact Total Contact Total Contact Cast (TCC) - Cast (TCC) - Cast (TCC) - Left ($) Left ($) Left ($) -Debridement - Subq, 1st 20sq cm Yes Yes No -Apply Skin Sub - 1st 25 sq cm - Feet 1 -Epifix 18mm Disc 3 Pain Scale: 0-10 Numeric Is Patient Pain Free? Yes Yes Yes 10/26/22 14:16 Wound Center Nurse 2 #4 L Plantar -Time 14:22 -Correct Patient Yes -Correct Side, Site, Position Yes -Correct Procedure Yes -Procedure Performed Yes -Type of Procedure Debridement -Clinical Debridement Subcutaneous -Tissue Removed Subcutaneous -Post Debridement (cm) - Length 0.6 -Post Debridement (cm) - Width 0.4 -Post Debridement (cm) - Depth 0.1 -Total Square (Post) (cm) 0.24 -Area of Debridement (cm) - Length 0.6 -Area of Debridement (cm) - Width 0.4 -Total Square (Area) (cm) 0.24 -Tunneling No -Undermining/Tunneling No -Circular Undermining No -Wound/Ulcer Outcome Not Healed -Ulcer Cleansing Rinsed/ Irrigated with Saline -Foul Odor after Cleansing No -Bioengineered Tissue Yes -Type of Bioengineered Tissue Epifix 18mm Disc -Expiration Date 08/05/27 -Product Lot Number [id number] -Percent Used 100 -Lot number of Saline Used [id number] -Bleeding Controlled with Pressure -Treatment Response Procedure Tolerated Well -Offloading Yes -Type of Offloading Total Contact Cast (TCC) - Left ($) -Debridement - Subq, 1st 20sq cm No -Apply Skin Sub - 1st 25 sq cm - Feet 1 -Epifix 18mm Disc 3 Pain Scale: 0-10 Numeric Is Patient Pain Free? Yes WC - Nurse 3 - General Ulcer D/C NN Start: 10/05/22 09:58 Freq: Status: Active Protocol: Activity Type Activity Date Activity User E-sign Co-sign Detail Recorded Client Recorded Date Recorded By Document 10/05/22 13:56 [address] [id number] 10/05/22 13:57 PL Document 10/19/22 10:45 DL [id number] 10/19/22 10:48 DL 10/05/22 10/19/22 13:56 10:45 Wound Care Center Nurse 3 #4 L Plantar -Primary Dressing Applied Mepilex Border -Other Dressing Epifix/foam -Other Covering fluffed gauze/ TCC CASt -Mepilex Border 1 Treatment Response Procedure Tolerated Well Pain Scale: 0-10 Numeric Is Patient Pain Free? Yes Yes WC - Visit Discharge Discharge Condition Stable Ambulatory Status Ambulatory, Walker Transportation Private Auto Assessment/Plan Assessment/Plan (1) Ulcer of toe of left foot: CODE(S): L97.529 - Non-pressure chronic ulcer of other part of left foot with unspecified severity QUALIFIERS: Non-pressure ulcer stage: with fat layer exposed Qualified Code(s): L97.522 - Non-pressure chronic ulcer of other part of left foot with fat layer exposed (2) Diabetic neuropathy: CODE(S): E11.40 - Type 2 diabetes mellitus with diabetic neuropathy, unspecified QUALIFIERS: Diabetes mellitus type: type 2 Diabetes mellitus complication detail: diabetic polyneuropathy Qualified Code(s): E11.42 - Type 2 diabetes mellitus with diabetic polyneuropathy (3) DM (diabetes mellitus), type 2 with complications: CODE(S): E11.8 - Type 2 diabetes mellitus with unspecified complications (4) History of osteomyelitis: CODE(S): Z87.39 - Personal history of other diseases of the musculoskeletal system and connective tissue PLAN: Plan Patient evaluated at the wound healing center today. Wound care - Epifix #2 applied today to the left plantar ulcer, topped with wound veil that was secured with steri strips after placing skin protectant surrounding the ulcer. Topped with dry gauze. Reapplied TCC on today to help with off loading. Discussed the importance of keeping the cast dry and trying to off load as much as possible. He is tolerating the cast well and there is an improvement in the ulcer with him off loading. Wound cultures collected on 09/14/22 were positive for Klebsiella pneumoniae, Proteus mirabilis, Staphylococcus aureus, Enterococcus faecalis, and Anaerobic cocci. He was started on Augmentin twice daily to treat these results. 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 Stable soft tissue swelling over the first digit with vascular calcification. No bone erosion or soft tissue gas. Encouraged him to consider using either crutches or getting a knee roller to completely off load. Follow up one week. Call or come in sooner if develop any concerns.
== END 2022-11-01 23:59 | disposition home or self-care (01) ==
LOC: WC 14:15
PROVIDERS: PCP Family Medicine; Referring Provider Nurse Practitioner Family; Visit Provider Nurse Practitioner Family
DX: E11.621 Type 2 diabetes mellitus with foot ulcer (principal); L97.522 Non-pressure chronic ulcer of other part of left foot with fat layer exposed; E11.42 Type 2 diabetes mellitus with diabetic polyneuropathy; Z79.4 Long term (current) use of insulin; M20.40 Other hammer toe(s) (acquired), unspecified foot; Z79.899 Other long term (current) drug therapy; Z87.39 Personal history of other diseases of the musculoskeletal system and connective tissue
CPT/HCPCS: 11042; 15275; 29445; Q4186

== ENCOUNTER 2022-11-16 09:45 | Outpatient (RCR) | payer OTHER, SELFPAY ==
[2022-11-02 00:11] VITALS: BP 154/96; PULSE 102; RESP 16; TEMP 36.2; BMI 44.9
[2022-11-02 09:48] VITALS: BP 183/102; PULSE 103; RESP 20; TEMP 36.6; BMI 44.9
--- NOTE | 2022-11-02 12:18 | PN.PCM_ITS ---
History of Present Illness Date of Service: 11/02/22 Chief Complaint: Left plantar foot at base of great toe. History of Wound: Patient had an ulcer in this area that healed November 2021. He was seeing Dr. Rodriguez at that time. Patient's ulcer healed and then he went back to work wearing regular tennis shoes and the ulcer reopened not long after being healed. He has been placing antibiotic ointment on it and covering it with gauze. When he is more active, there is an increase in drainage. He is not experiencing much pain with it. Patient states that Dr. Rodriguez told him that if he went back to work right away the ulcer would reoccur. He is wearing a chalkyitsik boot that he has had for years when he had an injury. There is nothing off loading about it. He is currently on antibiotics for an infected tooth, he is not sure what antibiotic. He is not sure what his HgA1c is right now, it has been as high as 12.0. He is on new medications that are helping improve his blood sugars. Wound cultures collected on 09/14/22 were positive for Klebsiella pneumoniae, Proteus mirabilis, Staphylococcus aureus, Enterococcus faecalis, and Anaerobic cocci. He was started on Augmentin twice daily to treat these results. 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 Stable soft tissue swelling over the first digit with vascular calcification. No bone erosion or soft tissue gas. He currently denies fever, chills, nausea, vomiting. Progress of Wound: Left plantar toe ulcer is smaller in size. There is no callous present this week. He is almost healed. The base of the ulcer is beefy pink. He is toleratin g the TCC well and is doing a good job off loading. Will hold off on another application of Epifix this week. Objective Data Objective Data Vital Signs: Vital Signs Temp Pulse Resp BP 97.9 F 103 H 20 H 183/102 H 11/02/22 09:48 11/02/22 09:48 11/02/22 09:48 11/02/22 09:48 Weight: 340 lb Body Mass Index (BMI) 44.9 Charges/Coding Procedures Integumentary 111xxx-113xx: 05249 Maria Elena subq tissue 20 sq cm/< Procedures Musculoskeletal 20xxx-29xxx: 88303 APPLY RIGID LEG CAST (left TCC (total contact cast)) Debridement Note Debridement Note Wound debrided: Plantar foot proximal to great toe/hallux area Laterality: Left Wound Grade/Stage: Stage III Type of Debridement: Excisional debridement Anesthesia Used: 5% Lidocaine Gel Depth: Down to and including healthy tissue and in the subcutaneous layer Percentage of wound debrided: 100 Instrument Used: 3mm curette Tissue Removed: Devitalized tissue and slough Severity: Fat Layer Exposed Amount of bleeding with debridement: Mild Bleeding Controlled with: Pressure and Compression and gauze Patient tolerated procedure: Patient tolerated procedure well Post-Debridement Measurements and Additional Note: Post-Debridement Measurements/Treatment - Nurse 1 - General Ulcer Assessment Start: 11/02/22 09:47 Freq: Status: Active Protocol: CASSIE Activity Type Activity Date Activity User E-sign Co-sign Detail Recorded Client Recorded Date Recorded By Document 11/02/22 09:48 DL [id number] 11/02/22 09:59 DL 11/02/22 09:48 WC - Today's Visit Information Type of service Follow-up Visit (Physician/HEALTH EDITOR ) Arrival Mode Ambulatory Transfer Assistance None Patient Identification Verified (Name & Yes ) Patient Requires Transmission-Based No Precautions Height and Weight Body Mass Index (BMI) 44.9 BMI Classification Obese Vital Signs Temperature (97.8 F-99.1 F) 97.9 F Temperature Source Temporal Pulse Rate (60-100) 103 H Pulse Location Monitor Respiratory Rate (12-18) 20 H Respiratory rate source Observation Blood Pressure (90/60-120/80) 183/102 H Blood Pressure Mean (mm Hg) 129 Source Monitor Position Sitting Blood Pressure Location Left Arm History Since Last Visit- (Skip if this is Patient's initial visit) Have you changed medications since your Yes last visit? Any new allergies or adverse reactions No Had a fall/change in ADL's that may No increase risk of falls Signs or symptoms of abuse and/or No neglect since last visit Have you been in the hospital since your No last visit? Has dressing in place as prescribed Yes Has compression in place as prescribed N/A Has offloadiing in place as prescribed Yes Experienced any changes in pain level or No management Left Footwear Total Contact Cast Right Footwear Regular Shoe Pain Scale: 0-10 Numeric Is Patient Pain Free? Yes - Nurse 1 - General Ulcer Measurement Start: 11/02/22 09:47 Freq: Status: Active Protocol: Activity Type Activity Date Activity User E-sign Co-sign Detail Recorded Client Recorded Date Recorded By Document 11/02/22 09:48 MAYURI [id number] 11/02/22 09:59 DL 11/02/22 09:48 Wound Center Nurse 1 #4 L Plantar -Current Size (cm) - Length 0.5 -Current Size (cm) - Width 0.5 -Current Size (cm) - Depth 0.1 -Total Square Cm 0.25 -Photo Taken Yes -Exudate Amt Small -Exudate Type Serosanguineous -Wound Margin Distinct, Outline Attached -Granulation Amt Small (1-33%) -Granulation Quality Red -Necrosis Amt None Present (0 %) -Structure Exposed N/A -Texture (Bev-wound Skin Appearance) Scarring -Moisture (Bev-wound Skin Appearance) No Abnormality -Color (Bev-wound Skin Appearance) No Abnormality -Temperature (Bev-wound Skin No Abnormality Appearance) (Pt Warm) -Tenderness on Palpation (Bev-wound No Skin Appearance) -Ulcer Cleansing Soap and Water -Foul Odor after Cleansing No -Anesthetic Used 5% Lidocaine Gel WC - Nurse 2 - General Ulcer CM Notes Start: 11/02/22 09:47 Freq: Status: Active Protocol: Activity Type Activity Date Activity User E-sign Co-sign Detail Recorded Client Recorded Date Recorded By Document 11/02/22 10:12 [id number] 11/02/22 10:18 HELIO 11/02/22 10:12 Wound Center Nurse 2 -Time 10:18 -Correct Patient Yes -Correct Side, Site, Position Yes -Correct Procedure Yes -Procedure Performed Yes -Type of Procedure Debridement -Clinical Debridement Subcutaneous -Tissue Removed Subcutaneous -Post Debridement (cm) - Length 0.4 -Post Debridement (cm) - Width 0.2 -Post Debridement (cm) - Depth 0.1 -Total Square (Post) (cm) 0.08 -Area of Debridement (cm) - Length 0.4 -Area of Debridement (cm) - Width 0.2 -Total Square (Area) (cm) 0.08 -Tunneling No -Undermining/Tunneling No -Circular Undermining No -Wound/Ulcer Outcome Not Healed -Ulcer Cleansing Rinsed/ Irrigated with Saline -Foul Odor after Cleansing No -Bioengineered Tissue No -Bleeding Controlled with Pressure -Treatment Response Procedure Tolerated Well -Offloading Yes -Type of Offloading Total Contact Cast (TCC) - Left ($) -Debridement - Subq, 1st 20sq cm Yes Pain Scale: 0-10 Numeric Is Patient Pain Free? Yes Assessment/Plan Assessment/Plan (1) Ulcer of toe of left foot: CODE(S): L97.529 - Non-pressure chronic ulcer of other part of left foot with unspecified severity QUALIFIERS: Non-pressure ulcer stage: with fat layer exposed Qualified Code(s): L97.522 - Non-pressure chronic ulcer of other part of left foot with fat layer exposed (2) Diabetic neuropathy: CODE(S): E11.40 - Type 2 diabetes mellitus with diabetic neuropathy, unspecified QUALIFIERS: Diabetes mellitus type: type 2 Diabetes mellitus complication detail: diabetic polyneuropathy Qualified Code(s): E11.42 - Type 2 diabetes mellitus with diabetic polyneuropathy (3) DM (diabetes mellitus), type 2 with complications: CODE(S): E11.8 - Type 2 diabetes mellitus with unspecified complications (4) History of osteomyelitis: CODE(S): Z87.39 - Personal history of other diseases of the musculoskeletal system and connective tissue PLAN: Plan Patient evaluated at the wound healing center today. Wound care - He has had 2 applications of Epifix. Today will place collagen hydrogel topped with foam dressing. Reapplied TCC on today to help with off loading. Discussed the importance of keeping the cast dry and trying to off load as much as possible. He is tolerating the cast well and there is an improvement in the ulcer with him off loading. Wound cultures collected on 09/14/22 were positive for Klebsiella pneumoniae, Proteus mirabilis, Staphylococcus aureus, Enterococcus faecalis, and Anaerobic cocci. He was started on Augmentin twice daily to treat these results. 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 Stable soft tissue swelling over the first digit with vascular calcification. No bone erosion or soft tissue gas. Encouraged him to consider using either crutches or getting a knee roller to completely off load. Follow up one week. Call or come in sooner if develop any concerns.
[2022-11-09 09:42] VITALS: BP 177/97; PULSE 105; RESP 20; TEMP 35.9; BMI 44.9
--- NOTE | 2022-11-09 13:23 | PN.PCM_ITS ---
History of Present Illness Date of Service: 11/09/22 Chief Complaint: Left plantar foot at base of great toe. History of Wound: Patient had an ulcer in this area that healed November 2021. He was seeing Dr. Rodriguez at that time. Patient's ulcer healed and then he went back to work wearing regular tennis shoes and the ulcer reopened not long after being healed. He has been placing antibiotic ointment on it and covering it with gauze. When he is more active, there is an increase in drainage. He is not experiencing much pain with it. Patient states that Dr. Rodriguez told him that if he went back to work right away the ulcer would reoccur. He is wearing a e[place] boot that he has had for years when he had an injury. There is nothing off loading about it. He is currently on antibiotics for an infected tooth, he is not sure what antibiotic. He is not sure what his HgA1c is right now, it has been as high as 12.0. He is on new medications that are helping improve his blood sugars. Wound cultures collected on 09/14/22 were positive for Klebsiella pneumoniae, Proteus mirabilis, Staphylococcus aureus, Enterococcus faecalis, and Anaerobic cocci. He was started on Augmentin twice daily to treat these results. 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 Stable soft tissue swelling over the first digit with vascular calcification. No bone erosion or soft tissue gas. He currently denies fever, chills, nausea, vomiting. Progress of Wound: Left plantar toe ulcer is healed this week. There is no callous present. He has been doing a good job off loading while wearing his TCC. Objective Data Objective Data Vital Signs: Vital Signs Temp Pulse Resp BP 96.6 F L 105 H 20 H 177/97 H 11/09/22 09:42 11/09/22 09:42 11/09/22 09:42 11/09/22 09:42 Weight: 340 lb Body Mass Index (BMI) 44.9 Charges/Coding Visit Charges Office Visits / Consults: 68224 OV L3 Est Physical Exam Const alert, oriented x3, no apparent distress and well nourished General Appearance: cooperative HEENT normocephalic Eyes General Eye: normal appearance of both eyes Neck full ROM Lymph Lymphatic: no lymphedema noted Resp normal air movement and clear to auscultation bilaterally Cardio regular rate and regular rhythm GI soft to palpation and non-tender Back/Spine normal ROM Extremity normal to inspection, full ROM and normal capillary refill Skin Wound Narrative: Left plantar foot ulcer at the base of great toe is healed today. No callus is present. Neuro oriented x3 Sensorium / Orientation: awake and alert Psych mental status grossly normal, thought process normal, cooperative and affect normal Appearance: grossly normal Debridement Note Debridement Note Post-Debridement Measurements and Additional Note: Post-Debridement Measurements/Treatment - Nurse 1 - General Ulcer Assessment Start: 11/02/22 09:47 Freq: Status: Active Protocol: [email or web address] Activity Type Activity Date Activity User E-sign Co-sign Detail Recorded Client Recorded Date Recorded By Document 11/02/22 09:48 DL [id number] 11/02/22 09:59 DL Document 11/09/22 09:42 DL [id number] 11/09/22 09:49 DL 11/02/22 11/09/22 09:48 09:42 - Today's Visit Information Type of service Follow-up Visit Follow-up Visit (Physician/ELEVATORS INSPECTOR (Physician/ELEVATORS INSPECTOR ) ) Arrival Mode Ambulatory Ambulatory Transfer Assistance None None Patient Identification Verified (Name & Yes Yes ) Patient Requires Transmission-Based No No Precautions Height and Weight Body Mass Index (BMI) 44.9 44.9 BMI Classification Obese Obese Vital Signs Temperature (97.8 F-99.1 F) 97.9 F 96.6 F L Temperature Source Temporal Temporal Pulse Rate (60-100) 103 H 105 H Pulse Location Monitor Monitor Respiratory Rate (12-18) 20 H 20 H Respiratory rate source Observation Observation Blood Pressure (90/60-120/80) 183/102 H 177/97 H Blood Pressure Mean (mm Hg) 129 123 Source Monitor Monitor Position Sitting Blood Pressure Location Left Arm History Since Last Visit- (Skip if this is Patient's initial visit) Have you changed medications since your Yes No last visit? Any new allergies or adverse reactions No No Had a fall/change in ADL's that may No No increase risk of falls Signs or symptoms of abuse and/or No No neglect since last visit Have you been in the hospital since your No No last visit? Has dressing in place as prescribed Yes Yes Has compression in place as prescribed N/A N/A Has offloadiing in place as prescribed Yes Yes Experienced any changes in pain level or No No management Left Footwear Total Contact Cast Right Footwear Regular Shoe Pain Scale: 0-10 Numeric Is Patient Pain Free? Yes Yes - Nurse 1 - General Ulcer Measurement Start: 11/02/22 09:47 Freq: Status: Active Protocol: Activity Type Activity Date Activity User E-sign Co-sign Detail Recorded Client Recorded Date Recorded By Document 11/02/22 09:48 DL [id number] 11/02/22 09:59 DL Document 11/09/22 09:42 DL [id number] 11/09/22 09:49 DL 11/02/22 11/09/22 09:48 09:42 Wound Center Nurse 1 #4 L Plantar -Current Size (cm) - Length 0.5 0 -Current Size (cm) - Width 0.5 0 -Current Size (cm) - Depth 0.1 0 -Total Square Cm 0.25 0 -Photo Taken Yes Yes -Exudate Amt Small None Present -Exudate Type Serosanguineous -Wound Margin Distinct, Thickened Outline Attached -Granulation Amt Small (1-33%) Large (67-100%) -Granulation Quality Red Pale,[place] -Slough/Fibrin No -Necrosis Amt None Present (0 None Present (0 %) %) -Structure Exposed N/A N/A -Texture (Bev-wound Skin Appearance) Scarring Callus -Moisture (Bev-wound Skin Appearance) No Abnormality Dry/Scaly -Color (Bev-wound Skin Appearance) No Abnormality No Abnormality -Temperature (Bev-wound Skin No Abnormality No Abnormality Appearance) (Pt Warm) (Pt Warm) -Tenderness on Palpation (Bev-wound No Skin Appearance) -Ulcer Cleansing Soap and Water Soap and Water -Foul Odor after Cleansing No No -Anesthetic Used 5% Lidocaine Gel - Nurse 2 - General Ulcer CM Notes Start: 11/02/22 09:47 Freq: Status: Active Protocol: Activity Type Activity Date Activity User E-sign Co-sign Detail Recorded Client Recorded Date Recorded By Document 11/02/22 10:12 [id number] 11/02/22 10:18 Document 11/09/22 10:05 [id number] 11/09/22 10:08 11/02/22 11/09/22 10:12 10:05 Wound Center Nurse 2 #4 L Plantar -Time 10:18 -Correct Patient Yes No -Correct Side, Site, Position Yes No -Correct Procedure Yes No -Procedure Performed Yes No -Type of Procedure Debridement -Clinical Debridement Subcutaneous -Tissue Removed Subcutaneous -Post Debridement (cm) - Length 0.4 0 -Post Debridement (cm) - Width 0.2 0 -Post Debridement (cm) - Depth 0.1 0 -Total Square (Post) (cm) 0.08 0 -Area of Debridement (cm) - Length 0.4 0 -Area of Debridement (cm) - Width 0.2 0 -Total Square (Area) (cm) 0.08 0 -Tunneling No -Undermining/Tunneling No -Circular Undermining No -Wound/Ulcer Outcome Not Healed Healed- Epithelialized -Ulcer Cleansing Rinsed/ Irrigated with Saline -Foul Odor after Cleansing No -Bioengineered Tissue No -Bleeding Controlled with Pressure -Treatment Response Procedure Tolerated Well -Offloading Yes -Type of Offloading Total Contact Cast (TCC) - Left ($) -Debridement - Subq, 1st 20sq cm Yes Pain Scale: 0-10 Numeric Is Patient Pain Free? Yes Yes - Nurse 3 - General Ulcer D/C NN Start: 11/02/22 09:47 Freq: Status: Active Protocol: Activity Type Activity Date Activity User E-sign Co-sign Detail Recorded Client Recorded Date Recorded By Document 11/09/22 10:13 [id number] 11/09/22 10:14 11/09/22 10:13 Is Patient Pain Free? Yes - Visit Discharge Discharge Condition Stable Ambulatory Status Ambulatory Transportation Private Auto Medication Reconcilliation completed & Yes provided to patient/care provider Clinical Summary of Care Provided Yes Assessment/Plan Assessment/Plan (1) Ulcer of toe of left foot: CODE(S): L97.529 - Non-pressure chronic ulcer of other part of left foot with unspecified severity QUALIFIERS: Non-pressure ulcer stage: with fat layer exposed Qualified Code(s): L97.522 - Non-pressure chronic ulcer of other part of left foot with fat layer exposed (2) Diabetic neuropathy: CODE(S): E11.40 - Type 2 diabetes mellitus with diabetic neuropathy, unspecified QUALIFIERS: Diabetes mellitus type: type 2 Diabetes mellitus complication detail: diabetic polyneuropathy Qualified Code(s): E11.42 - Type 2 diabetes mellitus with diabetic polyneuropathy (3) DM (diabetes mellitus), type 2 with complications: CODE(S): E11.8 - Type 2 diabetes mellitus with unspecified complications (4) History of osteomyelitis: CODE(S): Z87.39 - Personal history of other diseases of the musculoskeletal system and connective tissue PLAN: Plan Patient evaluated at the wound healing center today. Wound care - He has had 2 applications of Epifix. He is healed today. Will not apply the TCC this week. Encouraged him to off load as much as possible. Will have him follow up in one week to make sure that he stays healed. Wound cultures collected on 09/14/22 were positive for Klebsiella pneumoniae, Proteus mirabilis, Staphylococcus aureus, Enterococcus faecalis, and Anaerobic cocci. He was started on Augmentin twice daily to treat these results. 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 Stable soft tissue swelling over the first digit with vascular calcification. No bone erosion or soft tissue gas. Encouraged him to consider using either crutches or getting a knee roller to completely off load. Follow up one week. Call or come in sooner if develop any concerns.
[2022-11-16 09:58] VITALS: BP 178/106; PULSE 88; RESP 16; TEMP 36.4; BMI 44.9
--- NOTE | 2022-11-16 12:02 | PN.PCM_ITS ---
History of Present Illness Date of Service: 11/16/22 Chief Complaint: Left plantar foot at base of great toe. History of Wound: Patient had an ulcer in this area that healed November 2021. He was seeing Dr. Rodriguez at that time. Patient's ulcer healed and then he went back to work wearing regular tennis shoes and the ulcer reopened not long after being healed. He has been placing antibiotic ointment on it and covering it with gauze. When he is more active, there is an increase in drainage. He is not experiencing much pain with it. Patient states that Dr. Rodriguez told him that if he went back to work right away the ulcer would reoccur. He is wearing a pala boot that he has had for years when he had an injury. There is nothing off loading about it. He is currently on antibiotics for an infected tooth, he is not sure what antibiotic. He is not sure what his HgA1c is right now, it has been as high as 12.0. He is on new medications that are helping improve his blood sugars. Wound cultures collected on 09/14/22 were positive for Klebsiella pneumoniae, Proteus mirabilis, Staphylococcus aureus, Enterococcus faecalis, and Anaerobic cocci. He was started on Augmentin twice daily to treat these results. 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 Stable soft tissue swelling over the first digit with vascular calcification. No bone erosion or soft tissue gas. He currently denies fever, chills, nausea, vomiting. Progress of Wound: Left plantar toe ulcer remains healed this week. There is no callous present. He has been doing a good job off loading. Objective Data Objective Data Vital Signs: Vital Signs Temp Pulse Resp BP O2 Del Method 97.6 F L 88 16 178/106 H Room Air 11/16/22 09:58 11/16/22 09:58 11/16/22 09:58 11/16/22 09:58 11/16/22 09:58 Oxygen Delivery Method Room Air Weight: 340 lb Body Mass Index (BMI) 44.9 Charges/Coding Visit Charges Office Visits / Consults: 72605 OV L3 Est Physical Exam Const alert, oriented x3, no apparent distress and well nourished General Appearance: cooperative HEENT normocephalic Eyes General Eye: normal appearance of both eyes Neck full ROM Lymph Lymphatic: no lymphedema noted Resp normal air movement and clear to auscultation bilaterally Cardio regular rate and regular rhythm GI soft to palpation and non-tender Back/Spine normal ROM Extremity normal to inspection, full ROM and normal capillary refill Skin Wound Narrative: Left plantar foot ulcer at the base of great toe remains healed today. No callus is present. Neuro oriented x3 Sensorium / Orientation: awake and alert Psych mental status grossly normal, thought process normal, cooperative and affect normal Appearance: grossly normal Debridement Note Debridement Note No debridement was completed: No debridement was completed today Post-Debridement Measurements and Additional Note: Post-Debridement Measurements/Treatment - Nurse 1 - General Ulcer Assessment Start: 11/02/22 09:47 Freq: Status: Active Protocol: CASSIE Activity Type Activity Date Activity User E-sign Co-sign Detail Recorded Client Recorded Date Recorded By Document 11/02/22 09:48 DL [id number] 11/02/22 09:59 DL Document 11/09/22 09:42 DL [id number] 11/09/22 09:49 DL Document 11/16/22 09:58 [facility] [id number] 11/16/22 10:08 BMF 11/02/22 11/09/22 11/16/22 09:48 09:42 09:58 - Today's Visit Information Type of service Follow-up Visit Follow-up Visit Follow-up Visit (Physician/CHIEF PRIVACY OFFICER (Physician/CHIEF PRIVACY OFFICER (Physician/CHIEF PRIVACY OFFICER ) ) ) Arrival Mode Ambulatory Ambulatory Ambulatory Transfer Assistance None None None Accompanied by Patient Identification Verified (Name & Yes Yes Yes ) Patient Requires Transmission-Based No No No Precautions Height and Weight Body Mass Index (BMI) 44.9 44.9 44.9 BMI Classification Obese Obese Obese Vital Signs Temperature (97.8 F-99.1 F) 97.9 F 96.6 F L 97.6 F L Temperature Source Temporal Temporal Temporal Pulse Rate (60-100) 103 H 105 H 88 Pulse Location Monitor Monitor Apical Respiratory Rate (12-18) 20 H 20 H 16 Respiratory rate source Observation Observation Observation Oxygen Delivery Method Room Air Blood Pressure (90/60-120/80) 183/102 H 177/97 H 178/106 H Blood Pressure Mean (mm Hg) 129 123 130 Source Monitor Monitor Manual Position Sitting Sitting Blood Pressure Location Left Arm Left Arm History Since Last Visit- (Skip if this is Patient's initial visit) Have you changed medications since your Yes No last visit? Any new allergies or adverse reactions No No Had a fall/change in ADL's that may No No increase risk of falls Signs or symptoms of abuse and/or No No neglect since last visit Have you been in the hospital since your No No last visit? Has dressing in place as prescribed Yes Yes Has compression in place as prescribed N/A N/A Has offloadiing in place as prescribed Yes Yes Experienced any changes in pain level or No No management Left Footwear Total Contact Regular Shoe Cast Right Footwear Regular Shoe Regular Shoe Pain Scale: 0-10 Numeric Is Patient Pain Free? Yes Yes Yes WC - Nurse 1 - General Ulcer Measurement Start: 11/02/22 09:47 Freq: Status: Active Protocol: Activity Type Activity Date Activity User E-sign Co-sign Detail Recorded Client Recorded Date Recorded By Document 11/02/22 09:48 DL [id number] 11/02/22 09:59 DL Document 11/09/22 09:42 DL [id number] 11/09/22 09:49 DL 11/02/22 11/09/22 09:48 09:42 Wound Center Nurse 1 #4 L Plantar -Current Size (cm) - Length 0.5 0 -Current Size (cm) - Width 0.5 0 -Current Size (cm) - Depth 0.1 0 -Total Square Cm 0.25 0 -Photo Taken Yes Yes -Exudate Amt Small None Present -Exudate Type Serosanguineous -Wound Margin Distinct, Thickened Outline Attached -Granulation Amt Small (1-33%) Large (67-100%) -Granulation Quality Red Pale,Holcomb -Slough/Fibrin No -Necrosis Amt None Present (0 None Present (0 %) %) -Structure Exposed N/A N/A -Texture (Bev-wound Skin Appearance) Scarring Callus -Moisture (Bev-wound Skin Appearance) No Abnormality Dry/Scaly -Color (Bev-wound Skin Appearance) No Abnormality No Abnormality -Temperature (Bev-wound Skin No Abnormality No Abnormality Appearance) (Pt Warm) (Pt Warm) -Tenderness on Palpation (Bev-wound No Skin Appearance) -Ulcer Cleansing Soap and Water Soap and Water -Foul Odor after Cleansing No No -Anesthetic Used 5% Lidocaine Gel WC - Nurse 2 - General Ulcer CM Notes Start: 11/02/22 09:47 Freq: Status: Active Protocol: Activity Type Activity Date Activity User E-sign Co-sign Detail Recorded Client Recorded Date Recorded By Document 11/02/22 10:12 [id number] 11/02/22 10:18 Document 11/09/22 10:05 [id number] 11/09/22 10:08 Document 11/16/22 10:27 [id number] 11/16/22 10:27 11/02/22 11/09/22 11/16/22 10:12 10:05 10:27 Wound Center Nurse 2 #4 L Plantar -Time 10:18 -Correct Patient Yes No -Correct Side, Site, Position Yes No -Correct Procedure Yes No -Procedure Performed Yes No -Type of Procedure Debridement -Clinical Debridement Subcutaneous -Tissue Removed Subcutaneous -Post Debridement (cm) - Length 0.4 0 -Post Debridement (cm) - Width 0.2 0 -Post Debridement (cm) - Depth 0.1 0 -Total Square (Post) (cm) 0.08 0 -Area of Debridement (cm) - Length 0.4 0 -Area of Debridement (cm) - Width 0.2 0 -Total Square (Area) (cm) 0.08 0 -Tunneling No -Undermining/Tunneling No -Circular Undermining No -Wound/Ulcer Outcome Not Healed Healed- Epithelialized -Ulcer Cleansing Rinsed/ Irrigated with Saline -Foul Odor after Cleansing No -Bioengineered Tissue No -Bleeding Controlled with Pressure -Treatment Response Procedure Tolerated Well -Offloading Yes -Type of Offloading Total Contact Cast (TCC) - Left ($) -Debridement - Subq, 1st 20sq cm Yes Pain Scale: 0-10 Numeric Is Patient Pain Free? Yes Yes Yes - Nurse 3 - General Ulcer D/C NN Start: 11/02/22 09:47 Freq: Status: Active Protocol: Activity Type Activity Date Activity User E-sign Co-sign Detail Recorded Client Recorded Date Recorded By Document 11/09/22 10:13 [id number] 11/09/22 10:14 JF Document 11/16/22 10:27 [id number] 11/16/22 10:29 Edit Result 11/16/22 10:27 (1) [id number] 11/16/22 10:35 (1) #4 L Plantar - Primary Dressing Applied => Mepilex Border - Mepilex Border => 1 11/09/22 11/16/22 10:13 10:27 Wound Care Center Nurse 3 #4 L Plantar -Primary Dressing Applied Mepilex Border -Mepilex Border 1 Pain Scale: 0-10 Numeric Is Patient Pain Free? Yes Yes WC - Visit Discharge Discharge Condition Stable Stable Ambulatory Status Ambulatory Ambulatory Transportation Private Auto Private Auto Accompanied by Medication Reconcilliation completed & Yes Yes provided to patient/care provider Clinical Summary of Care Provided Yes Yes Assessment/Plan Assessment/Plan (1) Ulcer of toe of left foot: CODE(S): L97.529 - Non-pressure chronic ulcer of other part of left foot with unspecified severity QUALIFIERS: Non-pressure ulcer stage: with fat layer exposed Qualified Code(s): L97.522 - Non-pressure chronic ulcer of other part of left foot with fat layer exposed (2) Diabetic neuropathy: CODE(S): E11.40 - Type 2 diabetes mellitus with diabetic neuropathy, unspecified QUALIFIERS: Diabetes mellitus type: type 2 Diabetes mellitus complication detail: diabetic polyneuropathy Qualified Code(s): E11.42 - Type 2 diabetes mellitus with diabetic polyneuropathy (3) DM (diabetes mellitus), type 2 with complications: CODE(S): E11.8 - Type 2 diabetes mellitus with unspecified complications (4) History of osteomyelitis: CODE(S): Z87.39 - Personal history of other diseases of the musculoskeletal system and connective tissue PLAN: Plan Patient evaluated at the wound healing center today. He has remained healed this past week. He states he has been careful to off load as much as possible. Wound care - He has had 2 applications of Epifix. He remains healed today. Wound cultures collected on 09/14/22 were positive for Klebsiella pneumoniae, Proteus mirabilis, Staphylococcus aureus, Enterococcus faecalis, and Anaerobic cocci. He was started on Augmentin twice daily to treat these results. 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 Stable soft tissue swelling over the first digit with vascular calcification. No bone erosion or soft tissue gas. Will refer him to iron erector, Dr. Morton for evaluation for new diabetic shoes. He is not sure how many years it has been since he has had new diabetic shoes. Follow up as needed.
== END 2022-12-02 23:59 | disposition home or self-care (01) ==
LOC: WC 09:45
PROVIDERS: PCP Family Medicine; Referring Provider Nurse Practitioner Family; Visit Provider Nurse Practitioner Family
DX: E11.621 Type 2 diabetes mellitus with foot ulcer (principal); L97.522 Non-pressure chronic ulcer of other part of left foot with fat layer exposed; E11.42 Type 2 diabetes mellitus with diabetic polyneuropathy; Z79.4 Long term (current) use of insulin; M20.40 Other hammer toe(s) (acquired), unspecified foot; Z87.39 Personal history of other diseases of the musculoskeletal system and connective tissue; Z79.899 Other long term (current) drug therapy
CPT/HCPCS: 11042; 29445; 99213; G0463

== ENCOUNTER 2024-07-19 19:37 | Inpatient (IN) | payer MEDICAID, SELFPAY ==
[2024-07-19] VITALS (9 sets, daily range): BP systolic 160–202; BP diastolic 88–116; PULSE 93–102; RESP 15–20; TEMP 36.6–37.2; O2SAT 97–98; BMI 46.1; BMI 45.8
--- NOTE | 2024-07-19 19:59 | RAD_ITS ---
EXAM: XR RIGHT FOOT COMPLETE, 3 OR MORE VIEWS CLINICAL INDICATION: wound on plantar and between 4th and 5th toes TECHNIQUE: Frontal, lateral and oblique views of the right foot. COMPARISON: No relevant prior studies available. FINDINGS: BONES/JOINTS: Unremarkable. No acute fracture. No subluxation. Normal alignment. Preservation of the joint space. No sclerotic or destructive changes observed. SOFT TISSUES: Unremarkable. No soft tissue swelling or gas. No radiopaque foreign body. OTHER FINDINGS: The swallowing the dorsum of foot. RAD/Foot min 3 Views IMPRESSION: Soft tissue swelling with no osseous abnormality. Electronically Signed: Deejay Zamarripa MD at 21:07 EST ,
[2024-07-19] MEDS: 0.9% Normal Saline (1000mL) 1,000 ML 999 ML IV ×2 (20:17→22:09)
--- NOTE | 2024-07-19 20:20 | RAD_ITS ---
EXAM: XR CHEST, 1 VIEW CLINICAL INDICATION: cough TECHNIQUE: Frontal view of the chest. COMPARISON: No relevant prior studies available. FINDINGS: LUNGS AND PLEURAL SPACES: Unremarkable. No consolidation or edema. No pneumothorax. No effusion. HEART: Unremarkable. Cardiac silhouette not enlarged. MEDIASTINUM: Central airways and mediastinal contour are unremarkable. BONES/JOINTS: Unremarkable. No acute fracture. SOFT TISSUES: Unremarkable. RAD/Chest 1 View (Portable) IMPRESSION: No radiographic evidence of acute cardiopulmonary disease. Electronically Signed: Deejay Zamarripa MD at 20:56 EST ,
[2024-07-19 20:25] LABS: Absolute Lymphocyte Count 1.85 X10^3/uL (0.83-4.51); Absolute Neutrophil Count 11.1 X10^3/uL (2.0-7.7); Basophil# 0.08 X10^3/uL; Basophil% 0.6 % (0-1); Eosinophils% 2.1 % (0-5); Hematocrit 39.9 % (40-54); Lymphocyte # 1.85 X10^3/ul (0.83-4.51); Lymphocyte % 12.8 % (19-41); Mean Corp Hgb Conc 35.1 g/dL (32-36); Mean Corpuscular Hgb 27.6 pg (27.0-32.0); Mean Corpuscular Volume 78.7 fL (80-94); Mean Platelet Vol. 9.6 fl (6.2-12.0); Monocyte# 0.99 X10^3/uL; Monocyte% 6.9 % (0-10); NRBC Flagged by Analyzer 0 % (0-5); Neutrophil # 11.09 X10^3/uL (2.7-7.7); Platelet Count 383 K/mm3 (150-450); RBC Distribution Width CV 13.2 % (11.6-14.6); RBC Distribution Width SD 37.3 fl (35.1-43.9); Red Blood Count 5.07 M/mm3 (4.6-6.2); White Blood Count 14.4 K/mm3 (4.4-11.0)
[2024-07-19 20:38] LABS: Partial Thromboplast Time 26.7 Seconds (24.1-36.2); Prothrombin Time (Protime)PT. 13.2 SECONDS (11.7-14.9)
[2024-07-19] MEDS: Morphine 4 MG/ML Syringe IV (20:41)
[2024-07-19] MEDS: Ondansetron 4 MG/2 ML Vial IV (20:41)
[2024-07-19 20:52] LABS: Lactic Acid 1.8 mmol/L (0.4-1.9)
[2024-07-19 20:53] LABS: ALB/GLOB Ratio 0.5 RATIO (0.9-2.4); AST(SGOT) 11 U/L (15-37); Alanine Aminotransfer ALT/SGPT 17 U/L (16-61); Albumin, Serum 2.1 g/dL (3.2-5.0); Alkaline Phosphatase 109 U/L (45-117); Anion Gap 7 (5-15); BUN 17 mg/dL (7-18); BUN/Creat Ratio 15.9 RATIO (10-20); Calcium,Total 8.4 mg/dL (8.5-10.1); Chloride 100 mmol/L (98-107); Creatinine, Serum 1.07 mg/dL (0.70-1.30); EST Glomerular Filtration Rate 81 mL/min (>60); Est Glom Filt Rate - Afr Amer 98 mL/min (>60); Estimated Creatinine Clearance 144.57 ml/min; Globulin 4.6 g/dL (2.2-4.2); Glucose 253 mg/dL (74-106); Potassium 4.1 mmol/L (3.5-5.1); Protein, Total 6.7 g/dL (6.4-8.2); Sodium Level 135 mmol/L (136-145)
[2024-07-19 21:23] LABS: Bacteria 0 SEEN /hpf (None Seen); Mucous, Urine 0 SEEN /hpf (<or=2+)
[2024-07-19 21:27] LABS: Color, Urine Yellow (Yellow); Glucose, Dipstick 1000 mg/dl (Normal); Ketone-Dipstick 5 mg/dl (Negative); Leukocyte Esterase-Dipstick 25 /ul (Negative); Nitrite-Dipstick Negative (Negative); Occult Blood-Urine 150 /ul (Negative); Protein-Dipstick 500 mg/dl (Negative); Urine Bilirubin Dipstick Negative (Negative); Urine Clarity Sl. Cloudy (Clear); Urine Urobilinogen 1 mg/dl (Normal)
--- NOTE | 2024-07-19 21:27 | HP.PCM.HOS_ITS ---
[facility] - General General Date of Admission: 07/19/24 Date of Service: 07/19/24 Chief Complaint: Worsening Right Foot Wound. HPI Narrative GISELA HERNANDEZ, is a 39 M with a past medical history of essential hypertension; on metoprolol, spironolactone and sacubitril-valsartan, hyperlipidemia; on atorvastatin, morbid obesity; with BMI of 46.1 this admission, chronic smokeless tobacco abuse, DM-2; uncontrolled with hyperglycemia on insulin glargine 50 units SQ at bedtime and insulin U-500 130 units SQ twice daily and tirzepatide with most recent previous HgbA1c of 9.8% in our laboratory database, diabetic polyneuropathy, diabetic gastroparesis, history of cellulitis and osteomyelitis with DFU of Left foot, Chiari malformation, GERD, history of radicular pain in the Left arm and recently diagnosed Right DFU with wound developing ~3 weeks ago on the plantar aspect of his Right foot who presents to [facility] ER complaining of worsening Right foot wound. Mr. Hernandez reports his symptoms began ~3 weeks ago with a wound developed on the plantar aspect of his Right foot with patient saying he recently followed up with his PCP and they referred him to the wound clinic but he has not been able to be evaluated by them yet. He states over the past 3 days his symptoms became acutely worse with more redness, swelling and foul-smelling yellowish discharge emanating from the wound between his fourth and fifth toes. He states he had a similar problem with his Left foot previously when diagnosed with osteomyelitis and he did not want it to get to that point again in his Right foot so he decided to come in for further evaluation and treatment. He informed the ER physician his last hemoglobin A1c was ~8% which was down from his previous ~12%. There is no report of fever, chills, nausea, vomiting, diarrhea, constipation, chest pain, shortness of breath, dysuria or headache but he does admit to chronic numbness in his feet bilaterally from diabetic neuropathy. In the ER he was diagnosed with Right DFU with associated Cellulitis and suspected Tunneling Abscess complicated by clinical evidence of Uncontrolled Hypertension with blood pressure of 199/100 mmHg present on admission and he was then admitted to the general medical floor for ongoing care for status expected to extend beyond 2 midnights. [facility] Medical History Diabetic neuropathy Cellulitis Obese Diabetes mellitus Ulcer of toe of left foot GERD (gastroesophageal reflux disease) Chiari malformation Depression Gastroparesis HTN (hypertension) Arm paresthesia, left Radicular pain in left arm HLD (hyperlipidemia) DM (diabetes mellitus), type 2 with complications Home Medications ?Medication ?Instructions ?Recorded ?Last Taken ?Type atorvastatin 80 mg tablet 80 mg PO QHS hld 07/19/24 Unknown History blood-glucose sensor (FreeStyle 07/19/24 Unknown History Deion 3 Plus Sensor device) insulin glargine-yfgn 100 unit/mL 50 unit subcut QHS 07/19/24 Unknown History (3 mL) subcutaneous pen insulin regular hum U-500 conc 500 130 unit subcut TIDCM dm 07/19/24 Unknown History unit/mL(3 mL) subcut pen (Humulin R U-500 (Conc) Insulin Kwikpen) metoprolol succinate 25 mg 25 mg PO BID 07/19/24 Unknown History tablet,extended release 24 hr pen needle, diabetic 31 gauge x 07/19/24 Unknown History 5/16 (BD Ultra-Fine Short Pen Needle) potassium chloride 20 mEq 20 meq PO DAILY 07/19/24 Unknown History tablet,extended release sacubitril 24 mg-valsartan 26 mg 1 tab PO BID 07/19/24 Unknown History tablet (Entresto) spironolactone 25 mg tablet 12.5 mg PO DAILY 07/19/24 Unknown History tirzepatide 7.5 mg/0.5 mL 7.5 mg subcut QWEEK 07/19/24 Unknown History subcutaneous pen injector (Mounjaro) Allergy/AdvReac Type Severity Reaction Status Date / Time No Known Allergies Allergy Verified 07/19/24 19:40 Social History Smoking Status: Current every day smoker tobacco type: smokeless tobacco ROS ROS Narrative Review of Systems: Constitutional: Patient denies fever or chills. Eyes: Patient denies changes in vision or discharge from eyes. ENT: Patient denies runny nose, sore throat or ear pain. Resp: Patient denies shortness of breath or cough. CV: Patient denies chest pain, palpitations or heart racing. GI: Patient denies abdominal pain, nausea, vomiting or diarrhea. : Patient denies dysuria or hematuria. MSK: Patient admits to Right foot pain and wound as per HPI. Skin: Patient admits to an ulcer on the plantar aspect of his Right foot draining purulent foul-smelling material. Psych: Patient denies symptoms of uncontrolled depression or anxiety. Neuro: Patient admits to chronic numbness in feet bilaterally but he denies headache or focal neurologic deficits. Allergy: Patient denies lip swelling, tongue swelling or urticaria. Hematology: Patient denies lip swelling, tongue swelling or urticaria. Endocrinology: Patient denies polyuria, polydipsia or polyphagia. 14 point review of systems otherwise negative except for positives noted above in HPI. Vital Signs Vital Signs Vital Signs: 07/19/24 19:37 07/19/24 20:16 07/19/24 20:40 Temperature 97.9 F 98.9 F Temperature Source Oral Oral Pulse Rate 102 H 97 Respiratory Rate 18 18 Blood Pressure 190/116 H 199/100 H Blood Pressure Mean 140 133 Pulse Ox 97 97 98 Oxygen Delivery Method Room Air Room Air Room Air 07/19/24 21:00 07/19/24 21:24 Temperature 98.9 F Temperature Source Oral Pulse Rate 93 Respiratory Rate 15 Blood Pressure 199/100 H 186/95 H Blood Pressure Mean 133 125 Pulse Ox 97 Oxygen Delivery Method Room Air Weight Weight: 349 lb 10.45 oz Body Mass Index (BMI) 46.1 Physical Exam Const alert, oriented x3 and no apparent distress Constitutional Narrative: Morbidly obese. General Appearance: cooperative HEENT normocephalic, head/scalp atraumatic, hearing grossly normal bilaterally and moist oral mucous membranes Eyes PERRL and EOMs intact bilaterally Neck no lymphadenopathy and supple Resp normal respiratory effort, no retractions, no use of accessory muscles and clear to auscultation bilaterally Cardio regular rate and regular rhythm GI normal to inspection, nondistended, normoactive bowel sounds, soft to palpation, non-tender and non-distended GI Narrative: Morbidly obese. Extremity Extremity Narrative: Patient has chronic wound on the plantar aspect of his Right foot with a ~4 mm ulcer is apparently tunneling to the area between his third and fourth toes with purulent discharge able to be expressed from both sites with surrounding erythema, warmth to touch and tenderness to palpation. Skin Skin Narrative: Patient has chronic wound on the plantar aspect of his Right foot with a ~4 mm ulcer is apparently tunneling to the area between his third and fourth toes with purulent discharge able to be expressed from both sites with surrounding erythema, warmth to touch and tenderness to palpation. Neuro oriented x3, CN's II-XII intact bilaterally, moves all extremities and no focal motor deficits Sensorium / Orientation: awake, alert, oriented to person, oriented to place and oriented to time Speech: speech normal Psych affect normal Results Medical Records Data Attestation: I reviewed the patient's medical records Lab / Micro Data Attestation: I reviewed the patient's lab results. 07/19/24 20:10 07/19/24 20:10 Labs: Laboratory Results - last 24 hr 07/19/24 20:10: WBC 14.4 H, RBC 5.07, Hgb 14.0, Hct 39.9 L, MCV 78.7 L, MCH 27.6, MCHC 35.1, RDW Std Deviation 37.3, RDW Coeff of Corazon 13.2, Plt Count 383, MPV 9.6, Immature Gran % (Auto) 0.600, Neut % (Auto) 77.0 H, Lymph % (Auto) 12.8 L, [place] % (Auto) 6.9, Eos % (Auto) 2.1, Baso % (Auto) 0.6, Absolute Neuts (auto) 11.1 H, Absolute Lymphs (auto) 1.85, Nucleated RBC % 0, PT 13.2, INR 1.0, APTT 26.7, Sodium 135 L, Potassium 4.1, Chloride 100, Carbon Dioxide 28.0, Anion Gap 7, BUN 17, Creatinine 1.07, Estim Creat Clear Calc 144.57, Est GFR (MDRD) Af Amer 98, Est GFR (MDRD) Non-Af 81, BUN/Creatinine Ratio 15.9, Glucose 253 H, Lactic Acid 1.8, Calcium 8.4 L, Total Bilirubin 0.50, AST 11 L, ALT 17, Alkaline Phosphatase 109, Total Protein 6.7, Albumin 2.1 L, Globulin 4.6 H, A lbumin/Globulin Ratio 0.5 L Imaging Radiology Impression Foot X-Ray 07/19/24 19:59 IMPRESSION: Soft tissue swelling with no osseous abnormality. Electronically Signed: Deejay Zamarripa MD at 21:07 EST , Chest X-Ray 07/19/24 20:20 IMPRESSION: No radiographic evidence of acute cardiopulmonary disease. Electronically Signed: Deejay Zamarripa MD at 20:56 EST , Assessment & Plan Assessment/Plan (1) Diabetic foot ulcer associated with type 2 diabetes mellitus: QUALIFIERS: Diabetic foot ulcer location: unspecified part of foot Laterality: right Non-pressure ulcer stage: with fat layer exposed Qualified Code(s): E11.621 - Type 2 diabetes mellitus with foot ulcer; L97.512 - Non- pressure chronic ulcer of other part of right foot with fat layer exposed (2) Cellulitis of foot, right: (3) DM (diabetes mellitus), type 2 with complications: (4) Diabetic neuropathy: QUALIFIERS: Diabetes mellitus complication detail: diabetic polyneuropathy Diabetes mellitus type: type 2 Qualified Code(s): E11.42 - Type 2 diabetes mellitus with diabetic polyneuropathy (5) Leukocytosis: QUALIFIERS: Leukocytosis type: unspecified Qualified Code(s): D 72.829 - Elevated white blood cell count, unspecified (6) Tobacco abuse: (7) Uncontrolled hypertension: (8) Morbid obesity with BMI of 45.0-49.9, adult: (9) History of osteomyelitis: PLAN: Plan 1. DFU of the Right Foot with associated Cellulitis and suspected Tunneling Abscess draining foul-smelling purulent discharge with Leukocytosis of 14.4 K present on admission - Admit to general medical floor under contact precautions. Continue empiric IV Zosyn and IV vancomycin and await culture and sensitivity data. Check MRSA wound PCR. We will check MRI of the Right foot with and without contrast to confirm suspicion for underlying osteomyelitis. We will start supplemental vitamin D3, vitamin C and zinc to promote wound healing and hopefully help speed recovery. Give Tylenol prn for dqtz-gr-oewtjtra (level 1- 5/10) pain or fever. Give morphine IV prn for severe (level 6-10/10) pain. Wound RN to consult in AM on-rounds with help appreciated in advance. Finally, we will consult podiatry to see this patient on-rounds in the AM for further recommendations regarding surgical treatment options with help appreciated in advance. 2. DM-2; uncontrolled with Hyperglycemia in spite of his recently intensified insulin regimen with Diabetic Polyneuropathy with confirmatory elevated HgbA1c of 9.2% this admission promoting #1 - ADA diet. FSBS q. AC/HS plus SSI. 3. Chronic Tobacco Abuse complicating #1 & #2 - Tobacco Cessation will be strongly encouraged with Nicotine patch offered to control cravings. 4. Morbid obesity; with BMI of 46.1 this admission compounding #1 - #3 - Weight loss will be recommended. Check TSH. This complicates his case and may hamper recovery. 5. Uncontrolled Hypertension; on metoprolol, spironolactone, sacubitril- valsartan and furosemide adding to the medical complexity of #1 - #4 - Maintain home regimen and give Hydralazine IV prn for systolic blood pressure > 160 mmHg. 6. History of Cellulitis and Osteomyelitis with DFU of Left foot - Noted. 7. Hyperlipidemia - Resume statin and check Lipid Profile. 8. Diabetic Gastroparesis - Stable. Give Zofran IV prn. 9. Chiari malformation - Noted. 10. GERD - Start PPI if symptoms develop with this issue currently untreated at this time. 11. History of Radicular Pain in the Left arm - Stable. Give Tylenol prn. 12. DVT prophylaxis - Lovenox 40 mg sq BID. Total time: Approximately (but not less than) 75 minutes. Charges/Coding Visit Charges Inpatient E&M: 17586 Init Hosp L3
[2024-07-19 21:37] LABS: Amorphous Sediment 1+ URATE; Red Blood Cells-Urine 10-25 SEEN /hpf (0-5); Squamous Epithelial Cells - UA 0-5 SEEN /hpf (0-5); White Blood Cells 0-5 SEEN /hpf (0-5)
[2024-07-19 21:38] LABS: Yeast-Urine RARE /hpf (None Seen)
--- NOTE | 2024-07-19 21:44 | EDS_ITS ---
HPI History of Present Illness Chief Complaint: Wound Narrative Narrative: Patient is a 39-year-old male with past medical history of diabetes, diabetic neuropathy, GERD, depression, gastroparesis, hypertension, hyperlipidemia who presented to the emergency department chief complaint of right foot wound. Patient states that he had a wound develop in the right bottom aspect of his foot about 3 weeks ago and has been progressively worsening. He states that he recently followed up with his primary care physician and they referred him to the wound clinic however he has not been able to follow-up with them yet. He states that the past 3 days his foot has become more swollen red and noted some discharge coming from the wound therefore he came here for the valuation management. He states that in the past he had became significantly sick from an infection and did not want to get to that point again. Patient states that his last A1c was around 8 which was down from 12. PFSH PFS Medical History Diabetic neuropathy Cellulitis Obese Diabetes mellitus Ulcer of toe of left foot GERD (gastroesophageal reflux disease) Chiari malformation Depression Gastroparesis HTN (hypertension) Arm paresthesia, left Radicular pain in left arm HLD (hyperlipidemia) DM (diabetes mellitus), type 2 with complications Home Medications ?Medication ?Instructions ?Recorded ?Last Taken ?Type amoxicillin 250 mg capsule mg PO Q8H 09/14/22 Unknown History insulin NPH-regular 70-30 U-100 70 unit subcut TID 09/14/22 Unknown History insulin 100 unit/mL subcutaneous pen (Novolin 70-30 FlexPen U-100 Insulin) semaglutide 0.25 mg or 0.5 mg (2 0.25 mg subcut QWEEK 09/14/22 Unknown History mg/3 mL) subcutaneous pen injector (Ozempic) amoxicillin 875 mg-potassium 1 tab PO Q12H 14 days #28 tabs 09/21/22 Unknown Rx clavulanate 125 mg tablet blood-glucose sensor (FreeStyle 07/19/24 Unknown History Deion 3 Plus Sensor device) furosemide 40 mg tablet mg PO 07/19/24 Unknown History insulin glargine-yfgn 100 unit/mL 50 unit subcut QHS 07/19/24 Unknown History (3 mL) subcutaneous pen insulin regular hum U-500 conc 500 130 unit subcut BID 07/19/24 Unknown History unit/mL(3 mL) subcut pen (Humulin R U-500 (Conc) Insulin Kwikpen) metoprolol succinate 25 mg 25 mg PO BID 07/19/24 Unknown History tablet,extended release 24 hr pen needle, diabetic 31 gauge x 07/19/24 Unknown History 5/16 (BD Ultra-Fine Short Pen Needle) potassium chloride 20 mEq 20 meq PO DAILY 07/19/24 Unknown History tablet,extended release sacubitril 24 mg-valsartan 26 mg 1 tab PO BID 07/19/24 Unknown History tablet (Entresto) spironolactone 25 mg tablet 12.5 mg PO DAILY 07/19/24 Unknown History tirzepatide 7.5 mg/0.5 mL 7.5 mg subcut QWEEK 07/19/24 Unknown History subcutaneous pen injector (Mounjaro) Allergy/AdvReac Type Severity Reaction Status Date / Time No Known Allergies Allergy Verified 07/19/24 19:40 Social History Smoking Status: Current every day smoker tobacco type: smokeless tobacco ROS ROS ED ROS Narrative Constitutional: Denies any fevers, chills, headaches, lightness, dizziness Eyes: Denies change in vision double vision blurry vision Cardiovascular: Denies chest pain palpitations Respiratory: Denies coughing wheezing shortness of breath Abdomen: Denies abdominal pain nausea vomit diarrhea : Denies any urinary symptoms Neurological: Complains of chronic numbness in his feet bilaterally from his neuropathy Skin: Complains of right foot wounds as noted above EXAM Physical Exam Narrative Exam Narrative: General: Patient is lying in bed rest comfortably did not appear to be in acute distress Head: Atraumatic, normocephalic Eyes: PERRL bilateral, EOMI bilateral, no conjunctival injection noted Neck: Soft, supple, trachea midline Cardiovascular: Regular rate and rhythm no murmurs gallops rubs noted Respiratory: Clear to auscultation bilaterally Abdomen: Soft, nontender to palpation Extremities: DP pulses +2/4 in the bilateral extremities, +4/5 strength noted in the bilateral upper and lower extremities Neurological: Patient following commands knew that he was at [facility] year is 2024 Skin: Patient has a chronic wound on the plantar aspect of his right foot. Patient has erythema noted to the dorsal aspect of his right foot that is warm to the touch. Patient has a wound noted between the fourth and fifth toe with foul purulent drainage this will be sent for culture Const Vital Signs: 07/19/24 19:37 07/19/24 20:16 07/19/24 20:40 Temperature 97.9 F 98.9 F Temperature Source Oral Oral Pulse Rate 102 H 97 Respiratory Rate 18 18 Blood Pressure 190/116 H 199/100 H Blood Pressure Mean 140 133 Pulse Ox 97 97 98 Oxygen Delivery Method Room Air Room Air Room Air 07/19/24 21:00 07/19/24 21:24 Temperature 98.9 F Temperature Source Oral Pulse Rate 93 Respiratory Rate 15 Blood Pressure 199/100 H 186/95 H Blood Pressure Mean 133 125 Pulse Ox 97 Oxygen Delivery Method Room Air MDM MDM MDM Narrative Medical decision making narrative: Patient is a 39-year-old male who presented to the emerged part with chief complaint of right foot wounds. On the differential diagnose includes but limited to cellulitis, osteomyelitis, chronic diabetic foot wound. Once workup is obtained reviewed he will be reevaluated. Patient CBC was reviewed and was significant for leukocytosis of 14,000, hemoglobin stable at 14, plate count normal at 383. Patient's INR normal at 1, PT of 13.2. Patient sodium was 135, potassium 4.1, creatinine normal at 1.07. Patient's AST and ALT were 11 and 17 respectively. Patient urinalysis reviewed showed no evidence of infection. Patient's chest x-ray reviewed by myself and by radiology showed no acute cardiopulmonary processes. Patient's x-ray of his foot reviewed by myself and by radiology showed soft tissue swelling with no osseous abnormality. Patient's EKG reviewed and independently turbid of myself showed sinus tachycardia at a rate of 101 bpm. At this point time do believe the patient will warrant admission for his right foot wound with purulent discharge in the setting of his diabetes with an elevated A1c of 8. Patient be given vancomycin and Zosyn. Discussed case with hospitalist Dr. Donahue who accept patient for admission. Patient is agreeable this plan all question concerns answered at bedside. Lab Data Labs: Laboratory Results - last 24 hr 07/19/24 07/19/24 20:10 21:15 WBC 14.4 H RBC 5.07 Hgb 14.0 Hct 39.9 L MCV 78.7 L MCH 27.6 MCHC 35.1 RDW Std Deviation 37.3 RDW Coeff of Corazon 13.2 Plt Count 383 MPV 9.6 Immature Gran % (Auto) 0.600 Neut % (Auto) 77.0 H Lymph % (Auto) 12.8 L [place] % (Auto) 6.9 Eos % (Auto) 2.1 Baso % (Auto) 0.6 Absolute Neuts (auto) 11.1 H Absolute Lymphs (auto) 1.85 Nucleated RBC % 0 PT 13.2 INR 1.0 APTT 26.7 Sodium 135 L Potassium 4.1 Chloride 100 Carbon Dioxide 28.0 Anion Gap 7 BUN 17 Creatinine 1.07 Estim Creat Clear Calc 144.57 Est GFR (MDRD) Af Amer 98 Est GFR (MDRD) Non-Af 81 BUN/Creatinine Ratio 15.9 Glucose 253 H Lactic Acid 1.8 Calcium 8.4 L Total Bilirubin 0.50 AST 11 L ALT 17 Alkaline Phosphatase 109 Total Protein 6.7 Albumin 2.1 L Globulin 4.6 H Albumin/Globulin Ratio 0.5 L Urine Color Yellow Urine Clarity Sl. Cloudy Urine pH 6.0 Ur Specific [place] 1.020 Urine Protein 500 H Urine Glucose (UA) 1000 H Urine Ketones 5 H Urine Occult Blood 150 H Urine Nitrite Negative Urine Bilirubin Negative Urine Urobilinogen 1 H Ur Leukocyte Esterase 25 H Urine RBC 10-25 SEEN Urine WBC 0-5 SEEN Ur Squamous Epith Cells 0-5 SEEN Amorphous Sediment 1+ URATE Urine Bacteria 0 SEEN Urine Mucus 0 SEEN Urine Yeast RARE Radiography Diagnostic Testing: Clinical Impression(s) from Imaging Studies Foot X-Ray 07/19/24 19:59 IMPRESSION: Soft tissue swelling with no osseous abnormality. Electronically Signed: Deejay Zamarripa MD at 21:07 EST , Chest X-Ray 07/19/24 20:20 IMPRESSION: No radiographic evidence of acute cardiopulmonary disease. Electronically Signed: Deejay Zamarripa MD at 20:56 EST , Discharge Plan Triage Chief Complaint: Wound ED Provider: Freddie Hong Dx/Rx/DC Orders Clinical Impression: Cellulitis of foot, right, DM (diabetes mellitus), type 2 with complications Prescriptions: No Action amoxicillin 250 mg Capsule PO Q8H Novolin 70-30 FlexPen U-100 100 unit/mL (70-30) Insulin Pen 70 unit SUBCUT TID Ozempic 0.25 mg or 0.5 mg (2 mg/3 mL) Pen Injector 0.25 mg SUBCUT QWEEK Rx Instructions: for 4 weeks amoxicillin-pot clavulanate 875-125 mg tablet 1 tab PO Q12H 14 Days Qty: 28 1RF furosemide 40 mg tablet PO spironolactone 25 mg tablet 12.5 mg PO DAILY metoprolol succinate 25 mg tablet extended release 24 hr 25 mg PO BID (DME) pen needle, diabetic [BD Ultra-Fine Short Pen Needle] 31 gauge x 5/16 needle MISCELLANEOUS 4X/DAY (DME) FreeStyle Deion 3 Plus Sensor Device MISCELLANEOUS UD potassium chloride 20 mEq tablet extended release 20 meq PO DAILY sacubitril-valsartan [Entresto] 24-26 mg tablet 1 tab PO BID Humulin R U-500 (Conc) Kwikpen 500 unit/mL (3 mL) insulin pen 130 unit subcut BID insulin glargine-yfgn 100 unit/mL (3 mL) insulin pen 50 unit subcut QHS Mounjaro 7.5 mg/0.5 mL pen injector 7.5 mg subcut QWEEK Primary Care Provider: KANNAN ELISE Referrals: KANNAN ELISE, [employer]ANT[employer] [Primary Care Provider] - Print Language: Luxembourgish Disposition Disposition: Acute Care Hospital [facility]
[2024-07-19] MEDS: Piperacil/Tazobactam 3.375 GM in 0.9% Normal Saline (50mL MB+) 50 ML IV (21:56)
--- NOTE | 2024-07-19 22:19 | MRI_ITS ---
STUDY: MRI RIGHT FOOT, WITHOUT AND WITH IV CONTRAST REASON FOR EXAM: Male, 39 years old. Osteomyelitis with Right DFU TECHNIQUE: Standardized fat and water weighted pulse sequences were obtained in all 3 orthogonal planes. Following the intravenous administration of 30 cc Clariscan contrast, additional postcontrast imaging was obtained. COMPARISON: Right foot radiographs dated 07/19/2024. FINDINGS: There is a plantar forefoot ulcer at the level of the base of the fourth proximal phalanx, with ulcer tract containing gas extending to the fourth MTP joint. There is abnormal marrow signal and postcontrast enhancement in the fourth metatarsal head and fourth proximal phalanx, compatible with osteomyelitis / with septic arthritis. There is moderate subcutaneous soft tissue edema around the forefoot. There is no discrete fluid collection or drainable abscess. Normal bone marrow of the remainder of the metatarsals, phalanges and visualized distal tarsal row. Normal sesamoids without sesamoiditis, fracture or avascular necrosis. Normal joint spaces, without effusions. There are no extraarticular fluid collections. Normal visualized Lisfranc joints and normal Lisfranc ligament. Normal intermetatarsal spaces without intermetatarsal (Samson) neuroma or bursitis. Normal visualized extensor digitorum longus, extensor hallucis longus, flexor digitorum brevis and flexor hallucis longus tendons. Normal visualized plantar fascia without fasciitis, fibromatosis or tear. There is edema of the intrinsic muscles of the foot. MRI/Lower Ext No Joint W/WO Cont IMPRESSION: Plantar forefoot ulcer at the level of the base of the fourth proximal phalanx, with ulcer tract containing gas extending to the fourth MTP joint. Abnormal marrow signal and postcontrast enhancement in the fourth metatarsal head and fourth proximal phalanx, compatible with osteomyelitis / septic arthritis. Moderate subcutaneous soft tissue edema around the forefoot. Edema of the intrinsic muscles of the foot. Electronically Signed: Francois Gan MD at 12:29 EST ,
[2024-07-19] MEDS: Vancomycin HCl 2,000 MG in 0.9% Normal Saline (500mL Bag) 500 ML 250 MG IV (23:09)
[2024-07-19] MEDS: Morphine 2 MG/ML Syringe IV (23:34)
[2024-07-19] MEDS: Lactobacillis Acidophilus 1 CAP PO (23:36)
[2024-07-19] MEDS: SACUBITRIL/VALSARTAN 24/26 MG TABLET 1 EACH PO (23:37)
[2024-07-19] MEDS: Metoprolol(XL)Succ 25 MG Tablet PO (23:37)
--- NOTE | 2024-07-19 23:37 | PCM.RX.CS ---
Consult Antibiotic Management Pharmacy has been consulted to manage selected antibiotic: Vancomycin Type of Intervention Type of Consult: New start Suspected Infection Suspected Infection: Skin/Soft tissue Labs Labs: Sodium 135 mmol/L (136-145) L 07/19/24 20:10 Potassium 4.1 mmol/L (3.5-5.1) 07/19/24 20:10 Chloride 100 mmol/L (98-107) 07/19/24 20:10 Carbon Dioxide 28.0 mmol/L (21.0-32.0) 07/19/24 20:10 Anion Gap 7 (5-15) 07/19/24 20:10 BUN 17 mg/dL (7-18) 07/19/24 20:10 Creatinine 1.07 mg/dL (0.70-1.30) 07/19/24 20:10 Est GFR (MDRD) Af Amer 98 mL/min (>60) 07/19/24 20:10 Est GFR (MDRD) Non-Af 81 mL/min (>60) 07/19/24 20:10 BUN/Creatinine Ratio 15.9 RATIO (10-20) 07/19/24 20:10 Glucose 253 mg/dL (74-106) H 07/19/24 20:10 Dosing Weight Weight used for dosin kg Estimated Creatinine Clearance Estimated Creatinine Clearance: 145 Goal Trough Goal Trough: 15-20 mcg/mL Pharmacy Plan for Drug Dosing Pharmacy Plan for Drug Dosing: Pharmacy Service will continue to monitor and adjust dosing as required. Follow-Up Labs Follow-Up Labs: Trough: Vancomycin Date/Time Labs Ordered Labs to be done on [date and time ordered]: 07/20/24 @3238
[2024-07-19 23:56] LABS: Hemoglobin A1c 9.2 % (3.8-5.6)
[2024-07-20] VITALS (7 sets, daily range): BP systolic 123–168; BP diastolic 63–87; PULSE 80–89; RESP 16–18; TEMP 36.6–37.2; O2SAT 96–98; BMI 46.0
[2024-07-20] MEDS: 0.9% Normal Saline (1000mL) 1,000 ML 999 ML IV
[2024-07-20] MEDS: 0.9% Normal Saline (1000mL) 1,000 ML 50 ML IV (00:36)
[2024-07-20] MEDS: Insulin Glargine-YFGN 100 UNIT/ML Pen 40 UNIT SC (00:39)
[2024-07-20 01:00] LABS: M R Staph aureus DNA By PCR Negative (Negative); Probe Check PASS; Specimen Processing Control PASS; Staph aureus DNA By PCR NEGATIVE (Negative)
[2024-07-20 01:06] LABS: Bedside Glucose 221 mg/dL (74-106)
[2024-07-20] MEDS: Acetaminophen 325 MG Tablet 650 MG PO (02:46)
[2024-07-20] MEDS: Ketorolac 15 MG/ML Vial IV (03:14)
[2024-07-20] MEDS: Piperacil/Tazobactam 3.375 GM in 0.9% Normal Saline (50mL MB+) 50 ML IV ×3 (05:16→22:47)
[2024-07-20] MEDS: Vancomycin HCl 1,500 MG in 0.9% Normal Saline (500mL Bag) 500 ML 250 MG IV ×2 (06:34→16:31)
[2024-07-20] MEDS: Morphine 2 MG/ML Syringe IV ×3 (06:38→20:38)
[2024-07-20 06:39] LABS: Absolute Neutrophil Count 8.1 X10^3/uL (2.0-7.7); Basophil# 0.06 X10^3/uL; Basophil% 0.5 % (0-1); Eosinophil# 0.32 X10^3/uL; Eosinophils% 2.7 % (0-5); Hematocrit 34.8 % (40-54); Hemoglobin 12.2 g/dL (13.0-16.5); Lymphocyte % 19.7 % (19-41); Mean Corp Hgb Conc 35.1 g/dL (32-36); Mean Corpuscular Volume 79.8 fL (80-94); Mean Platelet Vol. 9.5 fl (6.2-12.0); Monocyte# 0.82 X10^3/uL; NRBC Flagged by Analyzer 0 % (0-5); Neutrophil % 69.3 % (47-70); Platelet Count 338 K/mm3 (150-450); RBC Distribution Width CV 13.3 % (11.6-14.6); Red Blood Count 4.36 M/mm3 (4.6-6.2); White Blood Count 11.7 K/mm3 (4.4-11.0)
[2024-07-20 07:14] LABS: ALB/GLOB Ratio 0.4 RATIO (0.9-2.4); AST(SGOT) 14 U/L (15-37); Alanine Aminotransfer ALT/SGPT 13 U/L (16-61); Albumin, Serum 1.7 g/dL (3.2-5.0); Alkaline Phosphatase 86 U/L (45-117); Anion Gap 4 (5-15); BUN 20 mg/dL (7-18); BUN/Creat Ratio 15.7 RATIO (10-20); Calcium,Total 7.4 mg/dL (8.5-10.1); Chloride 104 mmol/L (98-107); Creatinine, Serum 1.27 mg/dL (0.70-1.30); EST Glomerular Filtration Rate 67 mL/min (>60); Est Glom Filt Rate - Afr Amer 81 mL/min (>60); Estimated Creatinine Clearance 121.46 ml/min; Globulin 3.9 g/dL (2.2-4.2); Glucose 297 mg/dL (74-106); Phosphorus 2.1 mg/dL (2.5-4.9); Potassium 4.2 mmol/L (3.5-5.1); Protein, Total 5.6 g/dL (6.4-8.2); Sodium Level 133 mmol/L (136-145)
[2024-07-20] MEDS: Insulin U-500 UNITS/ML PEN 100 UNITS SC (09:03)
[2024-07-20] MEDS: Enoxaparin 40 MG/0.4 ML Syringe SC ×2 (09:04→20:41)
[2024-07-20] MEDS: Ascorbic Acid 500 MG Tablet 1000 MG PO ×2 (09:07→17:17)
[2024-07-20] MEDS: SACUBITRIL/VALSARTAN 24/26 MG TABLET 1 EACH PO ×2 (09:07→20:41)
[2024-07-20] MEDS: Furosemide 40 MG Tablet PO (09:07)
[2024-07-20] MEDS: Lactobacillis Acidophilus 1 CAP PO ×4 (09:07→20:40)
[2024-07-20] MEDS: Potassium Chloride Oral Tablet 20 MEQ PO (09:07)
[2024-07-20] MEDS: Zinc Sulfate 50 mg zinc (220 mg) ORAL capsule PO (09:07)
[2024-07-20] MEDS: Cholecalciferol (Vit D3) 125 MCG CAPSULE (5,000 UNITS) PO (09:08)
[2024-07-20] MEDS: Spironolactone 25 MG Tablet 12.5 MG PO (09:08)
[2024-07-20] MEDS: Metoprolol(XL)Succ 25 MG Tablet PO ×2 (09:09→20:41)
[2024-07-20] MEDS: oxyCODONE 5 MG Tablet 10 MG PO ×3 (09:30→22:47)
--- NOTE | 2024-07-20 11:08 | CASEMGMT ---
Social Work- Pt referred to [facility]. Pt reports that he will have MCR in August, as he will be on disability. Pt will qualify for EL[facility]SSA per [facility] in July. SW collaborating with [facility] on timing of ELYSSA approval, as pt indicating that he may prefer a SNF at discharge as pt lives alone. Resources requested/provided dependent on discharge plans. SW to continue to follow for pt needs. LEONEL Casper
[2024-07-20 12:50] LABS: Bedside Glucose 315 mg/dL (74-106)
--- NOTE | 2024-07-20 13:39 | CON.PCM_ITS ---
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: (2) Osteomyelitis of right foot: (3) Diabetes mellitus with diabetic polyneuropathy: (4) Diabetic foot ulcer associated with type 2 diabetes mellitus: QUALIFIERS: Diabetic foot ulcer location: unspecified part of foot Laterality: right Non-pressure ulcer stage: with fat layer exposed Qualified Code(s): E11.621 - Type 2 diabetes mellitus with foot ulcer; L97.512 - Non- pressure chronic ulcer of other part of right foot with fat layer exposed (5) Cellulitis of foot, right: (6) Tobacco abuse: PLAN: Plan Patient seen and evaluated Right foot: There is a full-thickness ulcer metatarsal/phalanx base of the fourth digit. Ulceration demonstrates necrotic tissue, fibrous tissue, and granular tissue with serosanguineous drainage and foul odor. There is tunneling noted proximally towards the fourth metatarsal head. There is erythema dorsally of the foot extending to the proximal midfoot. Erythema about ulcerative site plantarly. There is some soft tissue crepitus at the base of the fourth digit noted. WBC 11.7; Lactic Acid 1.8; Hgb 12.2; Hct 34.8; Glucose 297 HgbA1c 9.2% on 07/20/24 Swab Culture: Strep Group B and Gm Neg Joaquin Radiograph right foot 07/19/2024 demonstrates soft tissue swelling with no osseous abnormality. MRI right foot 07/20/2024: Plantar forefoot ulceration at level of base of fourth proximal phalanx with ulcer tract containing gas extending to the fourth MTPJ. Abnormal marrow signal and postcontrast enhancement and fourth metatarsal head and fourth proximal phalanx compatible with osteomyelitis/septic arthritis. Moderate soft tissue edema about the forefoot. I have reviewed images concur with radiographic read. Dry sterile dressing in place to right foot. Patient is to remain nonweightbearing to the right foot with assistance of walker. Medicine team currently following for medical management, they are appreciated. Infectious disease consult for antibiotic management Discussed the MRI and findings with the patient at bedside today. Discussed that he does have osteomyelitis of the fourth metatarsal head and base of the proximal phalanx which would require surgical excision for treatment. Discussed the surgical procedure of partial fourth ray amputation of the right foot and debridement of ulceration. Discussed the risks and complications of the procedure. Discussed that risks include but are not limited to the following: Pain, continued pain, complex regional pain syndrome, phantom pain, neuritis/numbness, swelling, dehiscence, delayed healing/nonhealing, infection, need for further surgical intervention/procedure, more proximal amputation, transfer lesion, bleeding, blood clot, stroke, addiction to pain medication, loss of function, loss of limb, loss of life. Patient is understanding of these and was able to repeat these back. Patient is understanding that this is not an elective procedure and this is a limb salvage procedure to prevent continued spread of infection and more proximal amputation. Patient is willing to proceed forward with the surgical intervention. Consent to be obtained for partial fourth ray amputation of the right foot with debridement of ulceration. Patient will be n.p.o. at midnight for anticipated surgical intervention tomorrow 07/21/2024 Jr. Santy Valentin.P.[facility] [phone] HPI Consult Data Date of Consult: 07/20/24 HPI Narrative Reason for Consultation: Neuropathic ulceration plantar fourth metatarsal/base of fourth digit right HPI Narrative: GISELA HERNANDEZ, is a 39 M who presents to [facility] late night 07/19/2024 with worsening infection of the right foot. Patient states that the ulceration has been present for roughly 3 weeks and had been following with his PCP who referred him to the wound care center however he was unable to get into appointment for evaluation. He has PMHx of uncontrolled DM type II with peripheral polyneuropathy, HTN, HLD, morbid obesity, chronic smokeless tobacco abuse, Hx of osteomyelitis with second digit amputation of the left foot, diabetic gastroparesis, Chiari malformation, and GERD. Patient states he is unsure of how the ulceration developed but does admit to ambulating without shoe gear in house and his compression stockings. States that with worsening infection he went to the hospital for further evaluation and IV antibiotic. He did report that he had gotten his A1c down to 8% from prior A1c of 12% with aid of insulin. He also states he has been losing weight on Mounjaro. He denies N/V/F/chills. Denies pain about the ulcerative site, but does have neuropathy. Denies trauma to the site. Denies further complaints. [facility] Medical History Diabetic neuropathy Cellulitis Obese Diabetes mellitus Ulcer of toe of left foot GERD (gastroesophageal reflux disease) Chiari malformation Depression Gastroparesis HTN (hypertension) Arm paresthesia, left Radicular pain in left arm HLD (hyperlipidemia) DM (diabetes mellitus), type 2 with complications Home Medications ?Medication ?Instructions ?Recorded ?Last Taken ?Type atorvastatin 80 mg tablet 80 mg PO QHS hld 07/19/24 Unknown History blood-glucose sensor (FreeStyle 07/19/24 Unknown History Deion 3 Plus Sensor device) insulin glargine-yfgn 100 unit/mL 50 unit subcut QHS 07/19/24 Unknown History (3 mL) subcutaneous pen insulin regular hum U-500 conc 500 130 unit subcut TIDCM dm 07/19/24 Unknown History unit/mL(3 mL) subcut pen (Humulin R U-500 (Conc) Insulin Kwikpen) metoprolol succinate 25 mg 25 mg PO BID 07/19/24 Unknown History tablet,extended release 24 hr pen needle, diabetic 31 gauge x 07/19/24 Unknown History 5/16 (BD Ultra-Fine Short Pen Needle) potassium chloride 20 mEq 20 meq PO DAILY 07/19/24 Unknown History tablet,extended release sacubitril 24 mg-valsartan 26 mg 1 tab PO BID 07/19/24 Unknown History tablet (Entresto) spironolactone 25 mg tablet 12.5 mg PO DAILY 07/19/24 Unknown History tirzepatide 7.5 mg/0.5 mL 7.5 mg subcut QWEEK 07/19/24 Unknown History subcutaneous pen injector (Cubaunsheridanro) Allergy/AdvReac Type Severity Reaction Status Date / Time No Known Allergies Allergy Verified 07/19/24 19:40 Social History Smoking Status: Current every day smoker tobacco type: smokeless tobacco ROS Constitutional Constitutional: Denies body ache(s), chills or fever(s) Eyes Eyes: Denies diplopia or loss of vision ENT HEENT: Denies dysphagia, rhinorrhea or sore throat Cardiovascular Cardiovascular: Denies chest pain, claudication or palpitations Respiratory/Chest Respiratory/Chest: Denies cough, dyspnea or wheezing Gastrointestinal Gastrointestinal: Denies abdominal pain, constipation, diarrhea, nausea or vomiting Genitourinary Genitourinary: Denies dysuria or urinary urgency Musculoskeletal Musculoskeletal: Denies joint pain, joint stiffness or joint swelling Integumentary Integumentary: Denies jaundice, lesions or pruritus Neurologic Neurologic: Denies dizziness, numbness or seizures Psychiatric Psychiatric: Reports depression; Denies anxiety Endocrine Endocrinology: Denies polydipsia, polyphagia or polyuria Hematologic/Lymphatic Hematologic/Lymphatic: Denies easy bleeding or easy bruising Physical Exam Const alert, oriented x3 and no apparent distress General Appearance: cooperative HEENT normocephalic Eyes General Eye: normal appearance of both eyes Neck General: normal visual inspection Lymph Lymphatic: no lymphadenopathy noted and no lymphedema noted Resp normal respiratory effort Cardio regular rate and regular rhythm Extremity no calf tenderness Extremity Narrative: Right lower extremity: Vascular: DP and PT pulses palpable. CFT less than 3 seconds digit. Normal temperature gradient. Pedal hair growth noted to digits. Neurologic: Gross sensation intact. Protective sensation diminished secondary to diabetic peripheral polyneuropathy. Musculoskeletal: Muscle strength 5 of 5 age-appropriate. Decreased range of motion of the ankle joint dorsiflexion with the knee extended without pain or crepitus. Decreased range of motion of the first metatarsophalangeal joint without pain or crepitus noted. No pain to palpation about the ulcerative site subfourth metatarsal/digit. Dermatologic: There is a full-thickness ulcer metatarsal/phalanx base of the fourth digit. Ulceration demonstrates necrotic tissue, fibrous tissue, and granular tissue with serosanguineous drainage and foul odor. There is tunneling noted proximally towards the fourth metatarsal head. There is erythema dorsally of the foot extending to the proximal midfoot. Erythema about ulcerative site plantarly. There is some soft tissue crepitus at the base of the fourth digit noted. Left lower extremity: Vascular: DP and PT pulses palpable. CFT less than 3 seconds to digits. Normal temperature gradient. Pedal hair growth is noted to digits. Neurologic: Gross sensation intact. Protective sensation diminished secondary to diabetic peripheral polyneuropathy. Musculoskeletal: Muscle strength 5 of 5 age-appropriate. Decreased range of motion of the ankle joint in dorsiflexion with the knee extended without pain or crepitus. Decreased range of motion of the first metatarsophalangeal joint without pain or crepitus noted. Prior amputation of second digit. Dermatologic: Cicatrix noted overlying the second metatarsal with amputation of second digit noted. There is a small eschar noted plantar to the base of the hallux without sign of infection. Skin no rashes or lesions noted and skin turgor normal Neuro moves all extremities Lab / Micro Data 07/20/24 06:17 07/20/24 06:17 Labs: Laboratory Results - last 24 hr 07/19/24 20:10: WBC 14.4 H, RBC 5.07, Hgb 14.0, Hct 39.9 L, MCV 78.7 L, MCH 27.6, MCHC 35.1, RDW Std Deviation 37.3, RDW Coeff of Corazon 13.2, Plt Count 383, MPV 9.6, Immature Gran % (Auto) 0.600, Neut % (Auto) 77.0 H, Lymph % (Auto) 12.8 L, Starr % (Auto) 6.9, Eos % (Auto) 2.1, Baso % (Auto) 0.6, Absolute Neuts (auto) 11.1 H, Absolute Lymphs (auto) 1.85, Nucleated RBC % 0, PT 13.2, INR 1.0, APTT 26.7, Sodium 135 L, Potassium 4.1, Chloride 100, Carbon Dioxide 28.0, Anion Gap 7, BUN 17, Creatinine 1.07, Estim Creat Clear Calc 144.57, Est GFR (MDRD) Af Amer 98, Est GFR (MDRD) Non-Af 81, BUN/Creatinine Ratio 15.9, Glucose 253 H, Lactic Acid 1.8, Calcium 8.4 L, Total Bilirubin 0.50, AST 11 L, ALT 17, Alkaline Phosphatase 109, Total Protein 6.7, Albumin 2.1 L, Globulin 4.6 H, A lbumin/Globulin Ratio 0.5 L, TSH 1.570 07/19/24 20:20: Hemoglobin A1c 9.2 H 07/19/24 21:15: Urine Color Yellow, Urine Clarity Sl. Cloudy, Urine pH 6.0, Ur Specific [place] 1.020, Urine Protein 500 H, Urine Glucose (UA) 1000 H, Urine Ketones 5 H, Urine Occult Blood 150 H, Urine Nitrite Negative, Urine Bilirubin Negative, Urine Urobilinogen 1 H, Ur Leukocyte Esterase 25 H, Urine RBC 10-25 SEEN, Urine WBC 0-5 SEEN, Ur Squamous Epith Cells 0-5 SEEN, Amorphous Sediment 1+ URATE, Urine Bacteria 0 SEEN, Urine Mucus 0 SEEN, Urine Yeast RARE 07/19/24 23:20: S.aureus Protein A PCR NEGATIVE, MRSA (PCR) Negative 07/20/24 00:03: POC Glucose 221 H 07/20/24 06:17: WBC 11.7 H, RBC 4.36 L, Hgb 12.2 L, Hct 34.8 L, MCV 79.8 L, MCH 28.0, MCHC 35.1, RDW Std Deviation 38.0, RDW Coeff of Corazon 13.3, Plt Count 338, MPV 9.5, Immature Gran % (Auto) 0.800, Neut % (Auto) 69.3, Lymph % (Auto) 19.7, Starr % (Auto) 7.0, Eos % (Auto) 2.7, Baso % (Auto) 0.5, Absolute Neuts (auto) 8.1 H, Absolute Lymphs (auto) 2.30, Nucleated RBC % 0, Sodium 133 L, Potassium 4.2, Chloride 104, Carbon Dioxide 25.0, Anion Gap 4 L, BUN 20 H, Creatinine 1.27, Estim Creat Clear Calc 121.46, Est GFR (MDRD) Af Amer 81, Est GFR (MDRD) Non-Af 67, BUN/Creatinine Ratio 15.7, Glucose 297 H, Calcium 7.4 L, Phosphorus 2.1 L, Magnesium 2.0, Total Bilirubin 0.40, AST 14 L, ALT 13 L, Alkaline Phosphatase 86, Total Protein 5.6 L, Albumin 1.7 L, Globulin 3.9, A lbumin/Globulin Ratio 0.4 L 07/20/24 12:27: POC Glucose 315 H Micro: Microbiology 07/19/24 20:10 Wound - Right Foot Gram Stain - Final 07/19/24 20:10 Wound - Right Foot Wound Culture - Preliminary Streptococcus group B Gram negative joaquin 07/19/24 21:15 Urine, Clean Catch Urine Culture - Preliminary Culture exhibits no growth. Imaging Radiology Impression Foot X-Ray 07/19/24 19:59 IMPRESSION: Soft tissue swelling with no osseous abnormality. Electronically Signed: Deejay Zamarripa MD at 21:07 EST , Chest X-Ray 07/19/24 20:20 IMPRESSION: No radiographic evidence of acute cardiopulmonary disease. Electronically Signed: Deejay Zamarripa MD at 20:56 EST , Lower Extremity MRI 07/19/24 22:19 IMPRESSION: Plantar forefoot ulcer at the level of the base of the fourth proximal phalanx, with ulcer tract containing gas extending to the fourth MTP joint. Abnormal marrow signal and postcontrast enhancement in the fourth metatarsal head and fourth proximal phalanx, compatible with osteomyelitis / septic arthritis. Moderate subcutaneous soft tissue edema around the forefoot. Edema of the intrinsic muscles of the foot. Electronically Signed: Francois Gan MD at 12:29 EST ,
[2024-07-20] MEDS: 0.9% Saline Lock 10 ML Syringe IV (14:34)
--- NOTE | 2024-07-20 15:20 | CASEMGMT ---
ISSAC ESCOBAR Assessment: Face to Face with pt for initial transition planning/care coordination assessment. ISSAC ESCOBAR introduced self and role at [facility], pt voices understanding and consents to assessment. Pt is A&O x4 and answers all questions appropriately at this time. Pt sitting up in bed with family preacher at bedside. Pt agreeable to assessment with preacher at bedside. Care providers, pharmacy, and demographics verified/updated. Admitting Dx: R DFU Strata Score: 2 PCP:Starr Specialists:Pt had a ID, cardio; endo and pod in [place] but is switching to [facility] for care now. He has not established the providers yet. Provided pt with a local healthcare directory pamphlet. Pt denies need for assistance with setting up providers. Preferred [facility]acy: [facility] Insurance: Self Pay, pt states he has MCR to start Aug 05. Emy from [facility] in room with pt at beginning of assessment. Prescription Benefit: no LNOK: Yareli Smith, sister Living Arrangements: Pt lives alone in a single story home with one step to enter. Pt reports he is I in ADLs and denies concerns at home. Transportation: Pt drives self and denies concerns with transportation. Pt states he does not have a car but he has a license. Pt states his family provides transportation for him for the time being. DME:Pt has insulin HHC/SNF: Pt has had [facility] in the past and denies SNF. Pt is currently from . Pt states he has moved from [place] to [place]. He states his home is not occupied by his now but it is in both of their names. He has a BGM, knee scooter, BSC, walker, surgical shoe at this home. Pt states he doesn't want to cause any problems so he does not plan on getting these items. Discussed pt that he is non wt bearing and if he doesn't have DME, nor insurance to get them, this would be self pay. Pt states he is on a fixed income and cannot pay for any DME. Discussed with pt if one of his family members may be able to obtain his equipment. Discussed that he needs his BGM so he can monitor his blood sugars for proper wound healing. Pt verbalizes understanding and states he will speak to his family regarding getting these. He states his family is very supportive and can help him. ID to consult. Pt to have OR. Pt states no further concerns/needs. CM to follow. Advised pt to ask CM if any further questions/concerns/needs arise, voices understanding. Pt Goal: Home Plan: TBD, follow for equipment needs and needs post surgery, ID sebas Haider RN CM
[2024-07-20 16:28] LABS: Bedside Glucose 259 mg/dL (74-106)
[2024-07-20] MEDS: Insulin U-500 UNITS/ML PEN 40 UNITS SC (17:15)
--- NOTE | 2024-07-20 19:10 | PN.HOSP_ITS ---
Reason for Visit Reason for Visit: Diagnoses Elevated white blood cell count, unspecified (07/19/24) Type 2 diabetes mellitus with diabetic neuropathy, unspecified (07/19/24) Type 2 diabetes mellitus with diabetic polyneuropathy (07/19/24) Type 2 diabetes mellitus with foot ulcer (07/19/24) Type 2 diabetes mellitus with unspecified complications (07/19/24) Morbid (severe) obesity due to excess calories (07/19/24) Essential (primary) hypertension (07/19/24) Cellulitis of right lower limb (07/19/24) Non-pressure chronic ulcer of other part of right foot with fat layer exposed (07/19/24) Non-pressure chronic ulcer of other part of right foot with necrosis of bone (07/19/24) Osteomyelitis, unspecified (07/19/24) Body mass index [BMI] 45.0-49.9, adult (07/19/24) Tobacco use (07/19/24) Personal history of other diseases of the musculoskeletal system and connective tissue (07/19/24) Subjective Subjective Patient was seen and examined today, I talked to him about his type 2 diabetes, patient does see an manager data warehousing and is on U-500 insulin plus Lantus insulin in the evening. Patient is going to go for surgery tomorrow for removal of his fourth toe and possibly his fifth toe on his right foot. Objective Data Objective Data Vital Signs: Vital Signs Temp Pulse Resp BP Pulse Ox O2 Del Method 98.8 F 86 16 168/85 H 98 Room Air 07/20/24 17:26 07/20/24 17:26 07/20/24 17:26 07/20/24 17:26 07/20/24 17:26 07/20/24 17:27 Oxygen Delivery Method Room Air Weight: 157.8 kg Body Mass Index (BMI) 46.0 Intake & Output: Intake and Output for Last 24 Hours 07/18/24 07/19/24 07/20/24 23:59 23:59 23:59 Intake Total 2049 4819.4 / 4819.4 Output Total 2074 Balance 2049 2744.4 / 2744.4 Lab / Micro Data 07/20/24 06:17 07/21/24 06:40 Labs: Laboratory Results - last 24 hr 07/19/24 20:10: WBC 14.4 H, RBC 5.07, Hgb 14.0, Hct 39.9 L, MCV 78.7 L, MCH 27.6, MCHC 35.1, RDW Std Deviation 37.3, RDW Coeff of Corazon 13.2, Plt Count 383, MPV 9.6, Immature Gran % (Auto) 0.600, Neut % (Auto) 77.0 H, Lymph % (Auto) 12.8 L, Stevens % (Auto) 6.9, Eos % (Auto) 2.1, Baso % (Auto) 0.6, Absolute Neuts (auto) 11.1 H, Absolute Lymphs (auto) 1.85, Nucleated RBC % 0, PT 13.2, INR 1.0, APTT 26.7, Sodium 135 L, Potassium 4.1, Chloride 100, Carbon Dioxide 28.0, Anion Gap 7, BUN 17, Creatinine 1.07, Estim Creat Clear Calc 144.57, Est GFR (MDRD) Af Amer 98, Est GFR (MDRD) Non-Af 81, BUN/Creatinine Ratio 15.9, Glucose 253 H, Lactic Acid 1.8, Calcium 8.4 L, Total Bilirubin 0.50, AST 11 L, ALT 17, Alkaline Phosphatase 109, Total Protein 6.7, Albumin 2.1 L, Globulin 4.6 H, A lbumin/Globulin Ratio 0.5 L, TSH 1.570 07/19/24 20:20: Hemoglobin A1c 9.2 H 07/19/24 21:15: Urine Color Yellow, Urine Clarity Sl. Cloudy, Urine pH 6.0, Ur Specific Chunky 1.020, Urine Protein 500 H, Urine Glucose (UA) 1000 H, Urine Ketones 5 H, Urine Occult Blood 150 H, Urine Nitrite Negative, Urine Bilirubin Negative, Urine Urobilinogen 1 H, Ur Leukocyte Esterase 25 H, Urine RBC 10-25 SEEN, Urine WBC 0-5 SEEN, Ur Squamous Epith Cells 0-5 SEEN, Amorphous Sediment 1+ URATE, Urine Bacteria 0 SEEN, Urine Mucus 0 SEEN, Urine Yeast RARE 07/19/24 23:20: S.aureus Protein A PCR NEGATIVE, MRSA (PCR) Negative 07/20/24 00:03: POC Glucose 221 H 07/20/24 06:17: WBC 11.7 H, RBC 4.36 L, Hgb 12.2 L, Hct 34.8 L, MCV 79.8 L, MCH 28.0, MCHC 35.1, RDW Std Deviation 38.0, RDW Coeff of Corazon 13.3, Plt Count 338, MPV 9.5, Immature Gran % (Auto) 0.800, Neut % (Auto) 69.3, Lymph % (Auto) 19.7, Stevens % (Auto) 7.0, Eos % (Auto) 2.7, Baso % (Auto) 0.5, Absolute Neuts (auto) 8.1 H, Absolute Lymphs (auto) 2.30, Nucleated RBC % 0, Sodium 133 L, Potassium 4.2, Chloride 104, Carbon Dioxide 25.0, Anion Gap 4 L, BUN 20 H, Creatinine 1.27, Estim Creat Clear Calc 121.46, Est GFR (MDRD) Af Amer 81, Est GFR (MDRD) Non-Af 67, BUN/Creatinine Ratio 15.7, Glucose 297 H, Calcium 7.4 L, Phosphorus 2.1 L, Magnesium 2.0, Total Bilirubin 0.40, AST 14 L, ALT 13 L, Alkaline Phosphatase 86, Total Protein 5.6 L, Albumin 1.7 L, Globulin 3.9, A lbumin/Globulin Ratio 0.4 L 07/20/24 12:27: POC Glucose 315 H 07/20/24 16:06: POC Glucose 259 H Micro: Microbiology 07/19/24 20:10 Wound - Right Foot Gram Stain - Final 07/19/24 20:10 Wound - Right Foot Wound Culture - Preliminary Streptococcus group B Gram negative venkatesh 07/19/24 21:15 Urine, Clean Catch Urine Culture - Preliminary Culture exhibits no growth. Radiography Diagnostic Testing: Radiology Impression Foot X-Ray 07/19/24 19:59 IMPRESSION: Soft tissue swelling with no osseous abnormality. Electronically Signed: Deejay Zamarripa MD at 21:07 EST , Chest X-Ray 07/19/24 20:20 IMPRESSION: No radiographic evidence of acute cardiopulmonary disease. Electronically Signed: Deejay Zamarripa MD at 20:56 EST , Lower Extremity MRI 07/19/24 22:19 IMPRESSION: Plantar forefoot ulcer at the level of the base of the fourth proximal phalanx, with ulcer tract containing gas extending to the fourth MTP joint. Abnormal marrow signal and postcontrast enhancement in the fourth metatarsal head and fourth proximal phalanx, compatible with osteomyelitis / septic arthritis. Moderate subcutaneous soft tissue edema around the forefoot. Edema of the intrinsic muscles of the foot. Electronically Signed: Francois Gan MD at 12:29 EST , Physical Exam Const alert, oriented x3 and no apparent distress Constitutional Narrative: Patient has class III obesity General Appearance: cooperative, well kempt and well developed Orientation / Consciousness: awake, oriented to person, oriented to place and oriented to time HEENT normocephalic, head/scalp atraumatic and moist oral mucous membranes Eyes PERRL, EOMs intact bilaterally and conjunctivae normal Neck supple, no JVD and thyroid normal General: trachea midline Resp normal respiratory effort, no retractions, no use of accessory muscles and clear to auscultation bilaterally Auscultation: Negative for rales, rhonchi or wheezes Cardio regular rate, regular rhythm, S1 normal heart sound, S2 normal heart sound, no murmurs, no rub and no gallops GI normal to inspection, nondistended, normoactive bowel sounds, soft to palpation, non-tender and non-distended Extremity Extremity Narrative: Generalized edema is noted over both lower legs Skin Skin Narrative: Right foot is wrapped with surgical dressing, this was not removed for examination of the area Neuro oriented x3, CN's II-XII intact bilaterally, moves all extremities and no focal motor deficits Sensorium / Orientation: awake and alert Speech: speech normal Psych affect normal Assessment & Plan Assessment/Plan (1) Diabetes mellitus with diabetic polyneuropathy: PLAN: Plan 1. Neuropathic diabetic right foot ulcer with osteomyelitis-patient will be scheduled for surgery tomorrow, podiatry is participating in his care #2 type 2 diabetes-patient's U-500 insulin will be held for surgery tomorrow except for a smaller evening dose tonight, Lantus insulin will be discontinued for now, sliding scale insulin is in place #3 class III obesity-complicates care, management, recovery, and prognosis #4 essential hypertension-patient will remain on his present medications #5 hyperlipidemia-patient will remain on his present medications Patient appears medically stable for surgery at this time Total clinical time spent by myself addressing patient's medical issues, reviewing all of his data, and collaborating with patient's care team: 50 minutes Charges/Coding Visit Charges Inpatient E&M: 41055 Subs Hosp L3
[2024-07-20 23:06] LABS: Bedside Glucose 201 mg/dL (74-106)
[2024-07-20 23:36] LABS: Vancomycin, Trough Level 29.4 ug/mL (5.0-15.0)
--- NOTE | 2024-07-20 23:42 | PCM.RX.CS ---
Consult Antibiotic Management Pharmacy has been consulted to manage selected antibiotic: Vancomycin Type of Intervention Type of Consult: Follow-up Suspected Infection Suspected Infection: Skin/Soft tissue Labs Labs: Sodium 133 mmol/L (136-145) L 07/20/24 06:17 Potassium 4.2 mmol/L (3.5-5.1) 07/20/24 06:17 Chloride 104 mmol/L (98-107) 07/20/24 06:17 Carbon Dioxide 25.0 mmol/L (21.0-32.0) 07/20/24 06:17 Anion Gap 4 (5-15) L 07/20/24 06:17 BUN 20 mg/dL (7-18) H 07/20/24 06:17 Creatinine 1.27 mg/dL (0.70-1.30) 07/20/24 06:17 Est GFR (MDRD) Af Amer 81 mL/min (>60) 07/20/24 06:17 Est GFR (MDRD) Non-Af 67 mL/min (>60) 07/20/24 06:17 BUN/Creatinine Ratio 15.7 RATIO (10-20) 07/20/24 06:17 Glucose 297 mg/dL (74-106) H 07/20/24 06:17 Vancomycin Trough 29.4 ug/mL (5.0-15.0) H 07/20/24 22:42 Microbiology Microbiology: Microbiology 07/19/24 20:10 Wound - Right Foot Gram Stain - Final 07/19/24 20:10 Wound - Right Foot Wound Culture - Preliminary Streptococcus group B Gram negative venkatesh 07/19/24 21:15 Urine, Clean Catch Urine Culture - Preliminary Culture exhibits no growth. Dosing Weight Weight used for dosin kg Estimated Creatinine Clearance Estimated Creatinine Clearance: 121 Goal Trough Goal Trough: 15-20 mcg/mL Pharmacy Plan for Drug Dosing Pharmacy Plan for Drug Dosing: Vancomycin trough level of 29.4 was high. This was drawn just 6.25hrs post-dose, but still too high to continue current dosing - also considering SCr increase from 1.07 to 1.27. Will draw a random vanco level 07/21/24 @0700 to determine further orders. Pharmacy Service will continue to monitor and adjust dosing as required. Follow-Up Labs Follow-Up Labs: Trough: Vancomycin (random) Date/Time Labs Ordered Labs to be done on [date and time ordered]: 07/21/24 @0700 (random)
[2024-07-21] VITALS (17 sets, daily range): BP systolic 136–184; BP diastolic 71–103; PULSE 80–100; RESP 14–18; TEMP 36.2–37.2; O2SAT 93–100; BMI 46.0; BMI 45.8
[2024-07-21] MEDS: Piperacil/Tazobactam 3.375 GM in 0.9% Normal Saline (50mL MB+) 50 ML IV ×3 (05:08→22:50)
[2024-07-21] MEDS: oxyCODONE 5 MG Tablet 10 MG PO ×2 (05:08→20:02)
[2024-07-21 07:12] LABS: Vancomycin, Random Level 20.9 ug/mL (0.0-15.0)
[2024-07-21 07:18] LABS: Anion Gap 5 (5-15); BUN 25 mg/dL (7-18); Calcium,Total 7.8 mg/dL (8.5-10.1); Chloride 108 mmol/L (98-107); Creatinine, Serum 2.09 mg/dL (0.70-1.30); EST Glomerular Filtration Rate 38 mL/min (>60); Est Glom Filt Rate - Afr Amer 45 mL/min (>60); Estimated Creatinine Clearance 73.78 ml/min; Glucose 186 mg/dL (74-106); Potassium 4.1 mmol/L (3.5-5.1); Sodium Level 137 mmol/L (136-145)
--- NOTE | 2024-07-21 07:30 | PCM.RX.CS ---
Consult Antibiotic Management Pharmacy has been consulted to manage selected antibiotic: Vancomycin Type of Intervention Type of Consult: Follow-up Suspected Infection Suspected Infection: Skin/Soft tissue Prior Doses of Antibiotics Prior Doses of Antibiotics Received/Current Regimen: Vancomycin 1500 mg Q8H last dose given 07/20/24 @ 1631 Labs Labs: Sodium 137 mmol/L (136-145) 07/21/24 06:40 Potassium 4.1 mmol/L (3.5-5.1) 07/21/24 06:40 Chloride 108 mmol/L (98-107) H 07/21/24 06:40 Carbon Dioxide 24.0 mmol/L (21.0-32.0) 07/21/24 06:40 Anion Gap 5 (5-15) 07/21/24 06:40 BUN 25 mg/dL (7-18) H 07/21/24 06:40 Creatinine 2.09 mg/dL (0.70-1.30) H 07/21/24 06:40 Est GFR (MDRD) Af Amer 45 mL/min (>60) L 07/21/24 06:40 Est GFR (MDRD) Non-Af 38 mL/min (>60) L 07/21/24 06:40 BUN/Creatinine Ratio 12.0 RATIO (10-20) 07/21/24 06:40 Glucose 186 mg/dL (74-106) H 07/21/24 06:40 Vancomycin Trough 29.4 ug/mL (5.0-15.0) H 07/20/24 22:42 Random Vancomycin 20.9 ug/mL (0.0-15.0) H 07/21/24 06:40 Microbiology Microbiology: Microbiology 07/19/24 20:10 Wound - Right Foot Gram Stain - Final 07/19/24 20:10 Wound - Right Foot Wound Culture - Preliminary Streptococcus group B Gram negative venkatesh 07/19/24 21:15 Urine, Clean Catch Urine Culture - Preliminary Culture exhibits no growth. Dosing Weight Weight used for dosin kg Estimated Creatinine Clearance Estimated Creatinine Clearance: ~ 74 Goal Trough Goal Trough: 15-20 mcg/mL Pharmacy Plan for Drug Dosing Pharmacy Plan for Drug Dosing: Vancomycin random this AM = 20.9, will resume dosing starting 4 hours from now at a reduced dose of 1250 mg Q12H. Pharmacy Service will continue to monitor and adjust dosing as required. Follow-Up Labs Follow-Up Labs: Trough: Vancomycin Date/Time Labs Ordered Labs to be done on [date and time ordered]: 07/22/24 @ 2414
[2024-07-21 07:49] LABS: Bedside Glucose 191 mg/dL (74-106)
[2024-07-21 08:46] LABS: Hemoglobin A1c 9.2 % (3.8-5.6)
[2024-07-21] MEDS: Spironolactone 25 MG Tablet 12.5 MG PO (09:45)
[2024-07-21] MEDS: Metoprolol(XL)Succ 25 MG Tablet PO ×2 (09:45→22:49)
[2024-07-21] MEDS: SACUBITRIL/VALSARTAN 24/26 MG TABLET 1 EACH PO ×2 (09:46→22:46)
[2024-07-21] MEDS: Morphine 2 MG/ML Syringe IV ×2 (09:51→23:19)
[2024-07-21] MEDS: 0.9% Saline Lock 10 ML Syringe IV ×2 (09:52→11:30)
--- NOTE | 2024-07-21 10:41 | CASEMGMT ---
ISSAC ESCOBAR into pt room, pt lying in bed in no distress. Pt states he will go over with his sister today after surgery about going to obtain DME from his [facility]. ISSAC ESCOBAR to follow to see what she is able to obtain and what pt will still need. Provided pt with [facility] transportation information and made pt aware that if he should chose [facility] or use [facility] facilities, this would be an option for transportation for him. Pt denies further needs at this time.
[2024-07-21] MEDS: Ondansetron 4 MG/2 ML Vial IV (11:30)
[2024-07-21] MEDS: Vancomycin HCl 1,250 MG in 0.9% Normal Saline (250mL Bag) 250 ML 167 MG IV ×2 (11:35→23:18)
[2024-07-21 12:14] LABS: Bedside Glucose 232 mg/dL (74-106)
--- NOTE | 2024-07-21 12:43 | PCM.PROGNOTE ---
Subjective Subjective Patient seen bedside prior to surgery. He is ready to proceed forward with intervention today. Objective Data Objective Data Vital Signs: Vital Signs Temp Pulse Resp BP Pulse Ox O2 Del Method 98.9 F 80 18 151/96 H 97 Room Air 07/21/24 09:23 07/21/24 09:45 07/21/24 09:23 07/21/24 09:23 07/21/24 09:23 07/21/24 09:41 Oxygen Delivery Method Room Air Weight: 157.7 kg Body Mass Index (BMI) 45.8 Intake & Output: Intake and Output for Last 24 Hours 07/19/24 07/20/24 07/21/24 23:59 23:59 23:59 Intake Total 2049 5819.4 / 5819.4 100 / 100 Output Total 2074 750 / 750 Balance 2049 3744.4 / 3744.4 -650 / -650 Lab / Micro Data 07/20/24 06:17 07/21/24 06:40 Labs: Laboratory Results - last 24 hr 07/20/24 12:27: POC Glucose 315 H 07/20/24 16:06: POC Glucose 259 H 07/20/24 22:42: Vancomycin Trough 29.4 H 07/20/24 22:46: POC Glucose 201 H 07/21/24 06:40: Sodium 137, Potassium 4.1, Chloride 108 H, Carbon Dioxide 24.0, Anion Gap 5, BUN 25 H, Creatinine 2.09 H, Estim Creat Clear Calc 73.78, Est GFR (MDRD) Af Amer 45 L, Est GFR (MDRD) Non-Af 38 L, BUN/Creatinine Ratio 12.0, Glucose 186 H, Hemoglobin A1c 9.2 H, Calcium 7.8 L, Phosphorus 3.0, Magnesium 2.0, Random Vancomycin 20.9 H 07/21/24 07:30: POC Glucose 191 H 07/21/24 11:40: POC Glucose 232 H Micro: Microbiology 07/19/24 21:15 Urine, Clean Catch Urine Culture - Final Mixed Gram Positive Organisms 07/19/24 20:10 Wound - Right Foot Gram Stain - Final 07/19/24 20:10 Wound - Right Foot Wound Culture - Final Streptococcus agalactiae (B) Proteus mirabilis Physical Exam Const alert, oriented x3 and no apparent distress General Appearance: cooperative HEENT normocephalic Eyes General Eye: normal appearance of both eyes Neck General: normal visual inspection Lymph Lymphatic: no lymphadenopathy noted and no lymphedema noted Resp normal respiratory effort Cardio regular rate and regular rhythm Extremity no calf tenderness Extremity Narrative: Right lower extremity: Vascular: DP and PT pulses palpable. CFT less than 3 seconds digit. Normal temperature gradient. Pedal hair growth noted to digits. Neurologic: Gross sensation intact. Protective sensation diminished secondary to diabetic peripheral polyneuropathy. Musculoskeletal: Muscle strength 5 of 5 age-appropriate. Decreased range of motion of the ankle joint dorsiflexion with the knee extended without pain or crepitus. Decreased range of motion of the first metatarsophalangeal joint without pain or crepitus noted. No pain to palpation about the ulcerative site subfourth metatarsal/digit. Dermatologic: There is a full-thickness ulcer metatarsal/phalanx base of the fourth digit. Ulceration demonstrates necrotic tissue, fibrous tissue, and granular tissue with serosanguineous drainage and foul odor. There is tunneling noted proximally towards the fourth metatarsal head. There is erythema dorsally of the foot extending to the proximal midfoot. Erythema about ulcerative site plantarly. There is some soft tissue crepitus at the base of the fourth digit noted. Left lower extremity: Vascular: DP and PT pulses palpable. CFT less than 3 seconds to digits. Normal temperature gradient. Pedal hair growth is noted to digits. Neurologic: Gross sensation intact. Protective sensation diminished secondary to diabetic peripheral polyneuropathy. Musculoskeletal: Muscle strength 5 of 5 age-appropriate. Decreased range of motion of the ankle joint in dorsiflexion with the knee extended without pain or crepitus. Decreased range of motion of the first metatarsophalangeal joint without pain or crepitus noted. Prior amputation of second digit. Dermatologic: Cicatrix noted overlying the second metatarsal with amputation of second digit noted. There is a small eschar noted plantar to the base of the hallux without sign of infection. 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 Patient ready to proceed forward with intervention today. Right foot: There is a full-thickness ulcer metatarsal/phalanx base of the fourth digit. Ulceration demonstrates necrotic tissue, fibrous tissue, and granular tissue with serosanguineous drainage and foul odor. There is tunneling noted proximally towards the fourth metatarsal head. There is erythema dorsally of the foot extending to the proximal midfoot. Erythema about ulcerative site plantarly. There is some soft tissue crepitus at the base of the fourth digit noted. WBC 11.7; Lactic Acid 1.8; Hgb 12.2; Hct 34.8; Glucose 297 HgbA1c 9.2% on 07/20/24 Swab Culture: Strep Group B and Gm Neg Joaquin Radiograph right foot 07/19/2024 demonstrates soft tissue swelling with no osseous abnormality. MRI right foot 07/20/2024: Plantar forefoot ulceration at level of base of fourth proximal phalanx with ulcer tract containing gas extending to the fourth MTPJ. Abnormal marrow signal and postcontrast enhancement and fourth metatarsal head and fourth proximal phalanx compatible with osteomyelitis/septic arthritis. Moderate soft tissue edema about the forefoot. I have reviewed images concur with radiographic read. Dry sterile dressing in place to right foot. Patient is to remain nonweightbearing to the right foot with assistance of walker. Medicine team currently following for medical management, they are appreciated. Infectious disease consult for antibiotic management Discussed the MRI and findings with the patient at bedside today. Discussed that he does have osteomyelitis of the fourth metatarsal head and base of the proximal phalanx which would require surgical excision for treatment. Discussed the surgical procedure of partial fourth ray amputation of the right foot and debridement of ulceration. Discussed the risks and complications of the procedure. Discussed that risks include but are not limited to the following: Pain, continued pain, complex regional pain syndrome, phantom pain, neuritis/numbness, swelling, dehiscence, delayed healing/nonhealing, infection, need for further surgical intervention/procedure, more proximal amputation, transfer lesion, bleeding, blood clot, stroke, addiction to pain medication, loss of function, loss of limb, loss of life. Patient is understanding of these and was able to repeat these back. Patient is understanding that this is not an elective procedure and this is a limb salvage procedure to prevent continued spread of infection and more proximal amputation. Patient is willing to proceed forward with the surgical intervention. Consent to be obtained for partial fourth ray amputation of the right foot with debridement of ulceration. Patient will be n.p.o. at midnight for anticipated surgical intervention tomorrow 07/21/2024. He is ready to proceed forward with intervention today as stated above. Jr. Santy Valentin.P[facility] [phone]
--- NOTE | 2024-07-21 14:11 | PCM.PRE.AN2 ---
ASA Classification* ASA Classification ASA Classification: 3 Assessment & Plan Anesthesia* Anesthesia Assessment Anesthesia Assessment: Discussed sedation and/or anesthesia options, risks, benefits, and alternatives with patient/parents/legal guardian/POA. Questions invited. The patient/parents/legal guardian/POA seems to understand and agrees to proceed with anesthesia plan. Reviewed the physical assessment, medical history, allergy history and patient home medications list prior to surgery/procedure/anesthetic and documented any changes. Performed airway and anesthesia risk assessments. Anesthesia Type Anesthesia Type: MAC History Source History Obtained from:: Patient and Chart Anesthesia Focused Assessment* Temperature: 98.9 F Pulse Rate: 80 Blood Pressure: 151/96 Respiratory Rate: 18 Pulse Ox: 97 Oxygen Delivery Method: Room Air Airway Assessment Mouth opens: >3 cm Mallampati Score: III Teeth Condition: Missing (Patient has several missing teeth. The rest are tight.) Neck Range of motion (ROM): Full ROM Focused Labs Anesthesia Preop lab: CBC WBC 11.7 K/mm3 (4.4-11.0) H 07/20/24 06:17 RBC 4.36 M/mm3 (4.6-6.2) L 07/20/24 06:17 Hgb 12.2 g/dL (13.0-16.5) L 07/20/24 06:17 Hct 34.8 % (40-54) L 07/20/24 06:17 Plt Count 338 K/mm3 (150-450) 07/20/24 06:17 CHEMISTRY Potassium 4.1 mmol/L (3.5-5.1) 07/21/24 06:40 Sodium 137 mmol/L (136-145) 07/21/24 06:40 Magnesium 2.0 mg/dL (1.6-2.6) 07/21/24 06:40 Phosphorus 3.0 mg/dL (2.5-4.9) 07/21/24 06:40 BUN 25 mg/dL (7-18) H 07/21/24 06:40 Creatinine 2.09 mg/dL (0.70-1.30) H 07/21/24 06:40 Glucose 186 mg/dL (74-106) H 07/21/24 06:40 POC Glucose 232 mg/dL (74-106) H 07/21/24 11:40 TSH 1.570 uIU/mL (0.358-3.740) 07/19/24 20:10 COAG PT 13.2 SECONDS (11.7-14.9) 07/19/24 20:10 Pre-Assessment Diagnosis/Proposed Procedure Planned Operative Procedure(s): Partial fourth ray amputation and debridement of ulcer right foot Anesthesia History 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 When Was Last Pacemaker Check QUESTION #4 FULL TEXT: You/Your Family Experience fever (hyperthermia) with Anesthesia Last Oral Intake Last Oral intake: Last Oral Intake NPO since 00:00 07/21/24 10:36 Meds taken in AM with sips of Yes 07/21/24 10:36 water? 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 business analyst Female HX of Motion Sickness HX of N/V After Surgery Non-Smoker Duration of Surgery greater than 60 minutes Number of Risk Factors PONV Score Height & Weight Height & Weight: Anesthesia: Height & Weight Height 6 ft 1 in 07/21/24 09:23 Weight: 157.7 kg 07/21/24 09:23 Body Mass Index (BMI) 45.8 07/21/24 10:36 Respiratory Assessment Respiratory Assessment - entry level business analyst: Respiratory Tract Infection Hx - entry level business analyst Hx Respiratory Tract Infection No 07/21/24 09:23 STOP Sleep Apnea STOP Sleep Apnea - entry level business analyst: STOP Sleep Apnea - entry level business analyst Hx Hypertension Yes 07/19/24 22:26 Hx Sleep Apnea Yes 07/19/24 22:26 CPAP No 07/19/24 22:26 BIPAP No 07/19/24 22:26 Do you snore loudly (louder than talking or can be heard Do you often feel tired/ fatigued/ sleepy during daytime? Has anyone observed you stop breathing during sleep? STOP Results Positive 07/19/24 22:26 QUESTION #5 FULL TEXT : Do you snore loudly (louder than talking or can be heard through closed doors)? 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 Specify any problems Hx of Preganancy in last 3 N/A 07/19/24 22:26 Months Nurse Filling Out Transfusion DREDICK 07/19/24 22:26 & Questions: Date: 07/19/24 07/19/24 22:26 Time: 22:27 07/19/24 22:26 Patient unable to answer at this time (ie. confused, unrespo /Reproduction History /Reproductive History - entry level business analyst: /Reproductive Hx- entry level business analyst Hx Now No 07/21/24 09:23 Gestational Age (in weeks): EDC: Hx Hx Para Hx Section SAB No 07/21/24 09:23 Active Medications Active Medications: Current Medications Generic Name Dose Route Start Last Admin Trade Name Freq PRN Reason Stop Dose Admin Acetaminophen 650 mg 07/19/24 22:19 07/20/24 02:46 Acetaminophen 325 Mg Tablet PO 650 mg Q6H PRN PRN Administration Pain 1-5/10 or Fever Al Hydroxide/Mg Hydroxide 30 ml 07/19/24 22:19 Mag Hydrox/Al Hydrox/Simeth 30 Ml Udc PO Q6H PRN PRN Gastric Burning Ascorbic Acid 1,000 mg 07/20/24 08:00 07/21/24 09:20 Ascorbic Acid 500 Mg Tablet PO Not Given BIDCM [facility] Cholecalciferol 125 mcg 07/20/24 10:00 07/21/24 09:22 Cholecalciferol (Vit D3) 125 Mcg Capsule (5,000 Units) PO Not Given DAILY [facility] Enoxaparin Sodium 40 mg 07/20/24 10:00 07/20/24 20:41 Enoxaparin 40 Mg/0.4 Ml Syringe SC 40 mg BID CHEKO Administration Furosemide 40 mg 07/20/24 10:00 07/21/24 09:21 Furosemide 40 Mg Tablet PO Not Given DAILY [facility] Protocol Hydralazine HCl 10 mg 07/19/24 22:19 Hydralazine 20 Mg/Ml Vial IV Q6H PRN PRN SBP GREATER THAN 160 Protocol Vancomycin IV-PHARMACY TO DOSE 500 mls @ 250 mls/hr 07/19/24 22:19 1 each/ Sodium Chloride IV PRN PRN Rx to Dose Protocol Piperacillin Sod/Tazobactam 50 mls @ 12.5 mls/hr 07/20/24 06:00 07/21/24 09:21 Sod 3.375 gm/ Sodium Chloride IV Infused Q8 CHEKO Infusion Sodium Chloride 100 mls @ 15 mls/hr 07/19/24 22:20 IV .Q6H40M PRN Saline Flush Sodium Chloride 100 mls @ 15 mls/hr 07/19/24 22:20 IV .Q6H40M PRN Additional IVPB Infusion Vancomycin HCl 1,250 mg/ 275 mls @ 167 mls/hr 07/21/24 11:00 07/21/24 14:04 Sodium Chloride IV Infused Q12H CHEKO Infusion Insulin Human Regular 100 units 07/19/24 22:45 07/20/24 14:53 Insulin U-500 Units/Ml Pen SC Not Given BIDCM [facility] Magnesium Hydroxide 30 ml 07/19/24 22:19 Magnesium Hydroxide 30 Ml Udc PO DAILY PRN PRN Constipation Melatonin 3 mg 07/19/24 22:19 Melatonin 3 Mg Tablet PO QHS PRN PRN INSOMNIA Metoprolol Succinate 25 mg 07/19/24 22:19 07/21/24 09:45 Metoprolol(Xl)Succ 25 Mg Tablet PO 25 mg BID CHEKO Administration Protocol Morphine Sulfate 2 mg 07/19/24 22:19 07/21/24 09:51 Morphine 2 Mg/Ml Syringe IV 2 mg Q4H PRN PRN Administration Pain Score 6-10 Nutritional Formula (Lactose Free) 120 ml 07/20/24 08:00 07/21/24 12:23 Glucerna Shake 120 Ml Liquid PO Not Given TIDCM [facility] Ondansetron HCl 4 mg 07/19/24 22:19 07/21/24 11:30 Ondansetron 4 Mg/2 Ml Vial IV 4 mg Q8H PRN PRN Administration NAUSEA/VOMITING Oxycodone HCl 10 mg 07/20/24 08:55 07/21/24 05:08 Oxycodone 5 Mg Tablet PO 10 mg Q6H PRN PRN Administration Pain Score 1-10 Potassium Chloride 20 meq 07/20/24 08:00 07/21/24 09:20 Potassium Chloride Oral Tablet 20 [facility]eq [facility] Sacubitril/Valsartan 1 each 07/19/24 22:19 07/21/24 09:46 Sacubitril/Valsartan 24/26 Mg Tablet PO 1 each BID CHEKO Administration Sodium Chloride 10 - 40 ml 07/19/24 22:20 07/21/24 11:30 0.9% Saline Lock 10 Ml Syringe IV 10 ml UD PRN Administration SALINE FLUSH Spironolactone 12.5 mg 07/20/24 10:00 07/21/24 09:45 Spironolactone 25 Mg Tablet PO 12.5 mg DAILY CHEKO Administration Protocol Vancomycin Protocol 1 lab 07/22/24 20:30 Vancomycin Trough/Random Due 07/23/24 00:30 DAILY [facility] Zinc Sulfate 50 mg 07/20/24 10:00 07/21/24 09:21 Zinc Sulfate 50 Mg Zinc (220 Mg) Oral Capsule PO Not Given DAILY [facility] Medical History (Updated 07/20/24 @ 13:[address] Iron Hood, DPElvira) Diabetic neuropathy Cellulitis Obese Diabetes mellitus Ulcer of toe of left foot GERD (gastroesophageal reflux disease) Chiari malformation Depression Gastroparesis HTN (hypertension) Arm paresthesia, left Radicular pain in left arm HLD (hyperlipidemia) DM (diabetes mellitus), type 2 with complications Home Medications ?Medication ?Instructions ?Recorded ?Last Taken ?Type atorvastatin 80 mg tablet 80 mg PO QHS hld 07/19/24 Unknown History blood-glucose sensor (FreeStyle 07/19/24 Unknown History Deion 3 Plus Sensor device) insulin glargine-yfgn 100 unit/mL 50 unit subcut QHS 07/19/24 Unknown History (3 mL) subcutaneous pen insulin regular hum U-500 conc 500 130 unit subcut TIDCM dm 07/19/24 Unknown History unit/mL(3 mL) subcut pen (Humulin R U-500 (Conc) Insulin Kwikpen) metoprolol succinate 25 mg 25 mg PO BID bp 07/19/24 07/21/24 History tablet,extended release 24 hr pen needle, diabetic 31 gauge x 07/19/24 Unknown History 11/17 (BD Ultra-Fine Short Pen Needle) potassium chloride 20 mEq 20 meq PO DAILY 07/19/24 Unknown History tablet,extended release sacubitril 24 mg-valsartan 26 mg 1 tab PO BID bp 07/19/24 07/21/24 History tablet (Entresto) spironolactone 25 mg tablet 12.5 mg PO DAILY bp 07/19/24 07/21/24 History tirzepatide 7.5 mg/0.5 mL 7.5 mg subcut QWEEK 07/19/24 Unknown History subcutaneous pen injector (Mounjaro) Allergy/AdvReac Type Severity Reaction Status Date / Time No Known Allergies Allergy Verified 07/19/24 19:40 Surgical History (Updated 07/21/24 @ 14:[address] Wiliam Wilson MD) S/P foot surgery Social History Smoking Status: Current every day smoker tobacco type: smokeless tobacco Review of Systems (Anesthesia) ROS Narrative System reviewed and no additional complaints, except as documented.
--- NOTE | 2024-07-21 14:25 | PCM.CONS.GEN ---
Assessment & Plan Assessment/Plan (1) Diabetes mellitus with diabetic polyneuropathy: (2) Osteomyelitis of right foot: PLAN: OR today, wound cx with GNS and proteus, cont vanc/zosyn. Will follow, thank you HPI Consult Data Date of Consult: 07/21/24 HPI Narrative Reason for Consultation: osteo HPI Narrative: GISELA HERNANDEZ, is a 39 M with DM neuropathy, prior L foot osteo requiring toe amp, now presented with 3 weeks progressive R foot pain, redness, swelling, drainage, and odor. No fever, no n/v/d. No recent abx. Came to ED, admitted on vanc/zosyn, OR Planned for today. Full ROS performed and neg except as noted above. COUNTS INCLUDE 234 BEDS AT THE [facility] Medical History Diabetic neuropathy Cellulitis Obese Diabetes mellitus Ulcer of toe of left foot GERD (gastroesophageal reflux disease) Chiari malformation Depression Gastroparesis HTN (hypertension) Arm paresthesia, left Radicular pain in left arm HLD (hyperlipidemia) DM (diabetes mellitus), type 2 with complications Home Medications ?Medication ?Instructions ?Recorded ?Last Taken ?Type atorvastatin 80 mg tablet 80 mg PO QHS hld 07/19/24 Unknown History blood-glucose sensor (FreeStyle 07/19/24 Unknown History Deion 3 Plus Sensor device) insulin glargine-yfgn 100 unit/mL 50 unit subcut QHS 07/19/24 Unknown History (3 mL) subcutaneous pen insulin regular hum U-500 conc 500 130 unit subcut TIDCM dm 07/19/24 Unknown History unit/mL(3 mL) subcut pen (Humulin R U-500 (Conc) Insulin Kwikpen) metoprolol succinate 25 mg 25 mg PO BID 07/19/24 Unknown History tablet,extended release 24 hr pen needle, diabetic 31 gauge x 07/19/24 Unknown History 16 (BD Ultra-Fine Short Pen Needle) potassium chloride 20 mEq 20 meq PO DAILY 07/19/24 Unknown History tablet,extended release sacubitril 24 mg-valsartan 26 mg 1 tab PO BID 07/19/24 Unknown History tablet (Entresto) spironolactone 25 mg tablet 12.5 mg PO DAILY 07/19/24 Unknown History tirzepatide 7.5 mg/0.5 mL 7.5 mg subcut QWEEK 07/19/24 Unknown History subcutaneous pen injector (Mounjaro) Allergy/AdvReac Type Severity Reaction Status Date / Time No Known Allergies Allergy Verified 07/19/24 19:40 Surgical History S/P foot surgery Social History Smoking Status: Current every day smoker tobacco type: smokeless tobacco Physical Exam Const alert, oriented x3 and no apparent distress General Appearance: cooperative HEENT normocephalic and head/scalp atraumatic Eyes PERRL and EOMs intact bilaterally Neck supple and No nodes Resp normal air movement and clear to auscultation bilaterally Cardio regular rate and regular rhythm GI soft to palpation, non-tender and non-distended Extremity General Extremity: Negative for edema Skin Skin Narrative: R foot wrapped Neuro CN's II-XII intact bilaterally Lab / Micro Data Attestation: I reviewed the patient's lab results. 07/20/24 06:17 07/21/24 06:40 Labs: Laboratory Results - last 24 hr 07/20/24 16:06: POC Glucose 259 H 07/20/24 22:42: Vancomycin Trough 29.4 H 07/20/24 22:46: POC Glucose 201 H 07/21/24 06:40: Sodium 137, Potassium 4.1, Chloride 108 H, Carbon Dioxide 24.0, Anion Gap 5, BUN 25 H, Creatinine 2.09 H, Estim Creat Clear Calc 73.78, Est GFR (MDRD) Af Amer 45 L, Est GFR (MDRD) Non-Af 38 L, BUN/Creatinine Ratio 12.0, Glucose 186 H, Hemoglobin A1c 9.2 H, Calcium 7.8 L, Phosphorus 3.0, Magnesium 2.0, Random Vancomycin 20.9 H 07/21/24 07:30: POC Glucose 191 H 07/21/24 11:40: POC Glucose 232 H Micro: Microbiology 07/19/24 21:15 Urine, Clean Catch Urine Culture - Final Mixed Gram Positive Organisms 07/19/24 20:10 Wound - Right Foot Gram Stain - Final 07/19/24 20:10 Wound - Right Foot Wound Culture - Final Streptococcus agalactiae (B) Proteus mirabilis
--- NOTE | 2024-07-21 14:45 | AMP_PTH ---
PATIENT: GISELA HERNANDEZ Jr. LOC: MS3 U#:[id number] AGE/SX: 39/M ROOM: [facility] RE07/19/[address]: Dr. Nimesh Swift DO : 1985 BED: 1 DIS: 07/29/2024 SPEC #: [id number] RECD: 07/24/24 08:36 STATUS: TERESA REQ #: [id number] ALON: 07/21/24 14:[address]: Iron Hood DEPT: SURGICAL PATHOLOGY RECD BY: Sarah Pride ENTERED: 07/24/24 10:42 SP TYPE: Amputation OTHR DR: Dr. Fito Flores, DO Dr. Nimesh Swift, DO Dr. Iron Hood, DPM Dr. Kali Thorne, DO MD KANNAN Cortez, LOSS PREVENTION ANALYST-C Tissues: Toe, NOS Procedures: Decalcification bone/plaque Surgery Specimen Level IV Comments: @ Ordering doctor for DEC edited from to @ by LESLIE at 07/24/24 113 @ Ordering doctor for SUIV edited from to @ by LESLIE at 07/24/24 [id number] @ Submitting doctor edited from to @ by LESLIE at 07/24/24 1137 HEADER OPERATION: Partial 4th ray right foot amputation, debridement ulcer PRE-OP DIAGNOSIS: Diabetic foot ulcer associated with type 2 diabetes mellitus, history of osteomyelitis TISSUE SUBMITTED: 4th metatarsal MICROSCOPIC DIAGNOSIS 4th metatarsal, amputation: Acute osteomyelitis. 07/27/2024 MICROSCOPIC DESCRIPTION Slides are reviewed. GROSS DESCRIPTION Received in fixative is one container labeled with the patient's name and designated 4th metatarsal. The specimen consists of a piece of bone measuring 2.5 x 1.5 x 1cm. The entire specimen is submitted in two cassettes after decalcification. 07/24/2024 TC:2 CPT:95443,07166
--- NOTE | 2024-07-21 14:58 | RAD_ITS ---
EXAM: XR RIGHT FOOT, 2 VIEWS CLINICAL INDICATION: PARTIAL AMPUTATION RT FOOT TECHNIQUE: Operative- Intraoperative fluoroscopic spot images. COMPARISON: MRI of the foot July 20, 2024 showing distal fourth metatarsal-proximal phalanx bone changes consistent with septic arthritis-osteomyelitis and communicating plantar ulcer fluid collection. Plain film July 19, 2024 showing lucency on both sides of the fourth MTP joint. RADIATION DOSE: 3 images, 11 seconds of fluoroscopy, 0.0767 mGy dose provided. FINDINGS: BONES/JOINTS: Initially fourth digit intact on first image. Amputation at the level of the mid fourth metatarsal on the second spot view. SOFT TISSUES: Soft tissue gas and defect in the postoperative site. RAD/Foot 2 Views IMPRESSION: Pre and postprocedural fluoroscopic spot exams. Electronically Signed: Celeste Graves MD at 20:14 EST ,
[2024-07-21] MEDS: Lidocaine 1% (20 ml mdv) 20 ML Vial (16:25)
[2024-07-21] MEDS: Bupivacaine 0.25% 30 ML Vial (16:25)
[2024-07-21] MEDS: Vancomycin IV 1,000 MG/20 ML Vial OPERA.SITE (16:50)
--- NOTE | 2024-07-21 17:44 | PCM.POST.ANE ---
Anesthesia: Postop Eval I Current Vital Signs Temperature: 97.2 F Pulse Rate: 92 Blood Pressure: 136/71 Respiratory Rate: 16 Pulse Ox: 94 Oxygen Delivery Method: Room Air Assessment Airway patent: Yes Spontaneous unlabored respirations: Yes Mental status: Awake and Calm nausea: No Vomiting: No Anesthesia Complication: No Fluid Hydration Crystalloid volume administer (ml): 1,200 Total IV fluid infused: 1,200 Progress Note Anesthesia document: Postop Eval 1 completed: Yes
--- NOTE | 2024-07-21 17:58 | RAD_ITS ---
EXAM: XR RIGHT FOOT COMPLETE, 3 OR MORE VIEWS CLINICAL INDICATION: Post-op Partial 4th Ray Amputation (PACU) TECHNIQUE: Frontal, lateral and oblique views of the right foot. COMPARISON: Fluoroscopic procedural images today. FINDINGS: BONES/JOINTS: There is a sharply demarcated acute amputation site at the mid fourth metatarsal. No subluxation. Normal alignment. Preservation of the joint space. No sclerotic or destructive changes observed. SOFT TISSUES: Postoperative soft tissue gas between the third and fifth digits and distal metatarsals and soft tissue swelling. No foreign bodies. RAD/Foot min 3 Views IMPRESSION: Amputation at the mid fourth metatarsal. Soft tissue swelling and gas. Electronically Signed: Celeste Graves MD at 19:14 EST ,
--- NOTE | 2024-07-21 17:59 | PCM.OPRPT ---
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 Neuropathic pressure ulceration subfourth metatarsal head right foot 2. Osteomyelitis fourth digit and fourth metatarsal head right foot 3. Gas gangrene right foot 4. Cellulitis with deep tissue abscess right foot 5. DM type II with peripheral polyneuropathy 6. DM type II with right foot ulceration Post-Operative Diagnosis: 1. Neuropathic pressure ulceration subfourth metatarsal head right foot 2. Osteomyelitis fourth digit and fourth metatarsal head right foot 3. Gas gangrene right foot 4. Cellulitis with deep tissue abscess right foot 5. DM type II with peripheral polyneuropathy 6. DM type II with right foot ulceration Surgery/Procedure Performed: 1. Partial fourth ray amputation right foot 2. I&D deep tissue abscess with wide debridement right foot 3. Incision of bone cortex right foot 4. Tissue rearrangement/skin flap plantar right foot 5. Tissue rearrangement/skin flap dorsal right foot 6. Sharp Excisional Debridement of ulceration to the level of muscle plantar right foot leader assembler: Yes Ic Engineer: Dr. Thalia Chavez, DPM PGY-1 Tasks completed by human resources assistant manager: Opening & closing, Dissecting tissue, Removing tissue, Retracting and Other (Cutting Bone) Type of Anesthesia: General and Local (20 cc one-to-one mixture of 1% lidocaine plain and 0.25% Marcaine plain) RN Documented Start/Stop Times: Operation Date: 07/21/24 14:45 Case Time Into Pre-Op 07/21/24 13:52 Out of Pre-Op 07/21/24 15:23 Anesthesia Start 07/21/24 15:27 Into Room 07/21/24 15:27 Procedure Start 07/21/24 16:07 Procedure End 07/21/24 17:31 Anesthesia End 07/21/24 17:39 Out of Room 07/21/24 17:39 Into Recovery 07/21/24 17:40 Procedure Start Time: 16:07 Procedure Stop Time: 17:31 Select all DRAINS/GRAFTS/IMPLANTS that apply: None Estimated Blood Loss: < 5mL Specimen collected: Yes Description of specimen(s) removed: Swab Culture Right foot Tissue/Bone Fourth Digit Right foot Fourth Metatarsal Bone Right foot Description of surgery: HPI/indication: Patient is a 39-year-old male who presents to [facility] on late night of 07/19/2024 with worsening right foot infection. Patient states that the infection had been present for roughly 3 weeks and he was attempting to get into the wound care center following visit with PCP however was unable to be evaluated at that time. He did continue to ambulate on the foot and often does walk barefoot in his house. Family reports he does have significant neuropathy and cannot feel anything in his feet, they also report that he did have a piece of metal in his shoe that likely rubbed or punctured a portion of the foot causing the initial wound. He presented due to worsening redness, foul odor, and purulent drainage from the right foot. He was empirically started on IV antibiotics with radiograph obtained of the right foot demonstrating soft tissue swelling of the forefoot. MRI was then obtained due to significant purulence from the foot with suspected abscess to the forefoot. MRI 07/20/2024 demonstrated soft tissue abscess of the forefoot about the fourth metatarsal head extending just under the base of the proximal phalanx of the third digit and base of the fifth digit proximal phalanx with soft tissue gas noted which was not apparent on radiograph. MRI also confirmed presence of osteomyelitis with enhancement on T2 and STIR imaging at the proximal phalanx of the fourth digit and head of the fourth metatarsal. I was consulted for operative care and management of the patient. I did discuss imaging results with the patient and the severity of the current infection. I discussed the need for surgical intervention involving draining of the abscess in addition to amputation of the fourth digit and a portion of the fourth metatarsal. Patient was understanding that this is not a elective procedure and this is a limb salvage procedure. Patient is understanding the necessity of the procedure to prevent continued spread of infection and more proximal amputation. Patient is understanding of this as he had a prior partial second ray amputation of the left foot 2 years prior. Patient wishes to proceed forward with the intervention. Risks and complications of the procedure were discussed with the patient. Discussed that the risks include but are not limited to the following: Pain, continued pain, complex regional pain syndrome, phantom pain, neuritis/numbness, swelling, dehiscence, delayed healing/nonhealing, infection, need for further surgical intervention/procedure, more proximal amputation, transfer lesion, bleeding, blood clot, stroke, heart attack, addiction to pain medication, loss of function, loss of limb, loss of life. Patient is understanding of these and was able to repeat these back. Typical postoperative course was discussed with the patient and he is understanding of this. Consent was obtained for partial fourth ray amputation of the right foot with debridement of ulceration and soft tissue skin flap of the right foot. Patient was kept n.p.o. at midnight on 07/20/2024 for intervention at [facility] at 07/21/2024. He was seen prior to procedure and operative limb was signed prior to entering the OR. Procedure: Under mild sedation patient was brought into the operating placed on the table in supine position and secured to table with safety belt. Following IV sedation and induction of general anesthetic a blanket bump was then placed under the right hip. Right foot was then elevated via a blanket bump. A pneumatic ankle tourniquet was then placed about the patient's right ankle. The foot was then scrubbed, prepped, and draped in the usual aseptic manner. The right foot was elevated and the pneumatic ankle tourniquet was inflated to 250 mmHg. At this time attention was directed to the right foot where fluoroscopic imaging was obtained in reference to the fourth metatarsal for incision placement and proper resection of the fourth metatarsal. A linear incision was then performed overlying the proximal aspect of the fourth metatarsal utilizing a #15 blade and extended distally encompassing the fourth digit. Incision was deepened to bone utilizing sharp dissection via #15 blade. There was thickened glycosylated tissue noted with abnormal anatomy noted secondary to chronic elevated glycemic index/uncontrolled diabetes mellitus type 2. Incision was deepened to the level of the fourth metatarsal and fourth metatarsal phalangeal joint was then identified and the digit was disarticulated at the fourth metatarsophalangeal joint and passed from the operative field to the table in toto. The fourth digit base of the proximal phalanx was noted to be discolored to a darkened yellow and mushy in consistency consistent with acute osteomyelitis. The phalanx bone and fourth digit were sent to microbiology for culture. Upon exploration of the forefoot with blunt dissection utilizing hemostat to abscess pockets were incised and drained/evacuated at the base of the fifth digit and the base of the third digit. Swab cultures were obtained of the purulence and sent to microbiology for aerobic and anaerobic analysis. During evacuation of the abscess there was foul odor noted at the sites. The sites were then flushed with copious amounts of normal sterile saline. All surrounding necrotic tissue was debrided to healthy bleeding tissue. At this time the head of the fourth metatarsal was examined and noted to be discolored and graying in appearance. A Holt was then utilized and pushed into the head of the fourth metatarsal with noted hard consistency to the dorsal aspect but soft mushy consistency to the plantar aspect consistent with acute osteomyelitis. The plantar aspect of the fourth metatarsal head was in direct communication with the plantar ulceration confirming the source of the infection. Next, utilizing guidance of fluoroscopy the fourth metatarsal was transected at the midshaft utilizing a sagittal saw. Resection at this proximal portion of bone was noted to be through hardened bone indicating viability and healthiness. The metatarsal was then dissected free and transferred from the operative field to the table in toto. Fourth metatarsal was sent to pathology for analysis. Site underwent further debridement of necrotic tissue at the plantar aspect. Extensor and flexor tendons were identified and transected as far proximal as possible and the plantar plate of the fourth metatarsophalangeal joint was sharply dissected free from the tissue and discarded per policy. Next, the site was copiously irrigated with 1000 cc pulse lavage and following irrigation site was inspected again demonstrating healthy viable bleeding tissue with no signs of remaining infection. The foot was milked in several different directions with no remaining purulence noted and no further abscess pockets noted. Remaining tissue appeared healthy and the remaining portion of the fourth metatarsal appeared healthy and was hard indicating viability of bone. At this time fluoroscopic imaging was obtained demonstrating resection of the fourth metatarsal and amputation of the fourth digit. Ulceration to the plantar aspect of the foot underwent sharp excisional debridement to the level of necrotic muscle utilizing #15 blade. 100% of this ulceration was debrided to the level of healthy viable tissue. Postdebridement ulcerative site measured 2.3 cm x 1.5 cm. At this time ulceration site underwent tissue rearrangement with adjacent skin flap performed and advanced for coverage of the plantar ulceration site. This underwent repair utilizing 4-0 Vicryl and 2-0 Prolene in simple interrupted fashion. Next, 1 g of vancomycin powder was placed in the tissue from the dorsal aspect. Following placement of the vancomycin powder tissue rearrangement/skin flap was made to cover the dorsal ulceration near the base of the fifth digit and provide adequate closure of the tissue incision site. Skin flap was made and advanced over the fifth digit and closed utilizing 4-0 Vicryl and 3-0 Prolene in simple interrupted fashion. Deep tissues were then closed utilizing 4-0 Vicryl. Subcutaneous tissues were then closed utilizing 4-0 Monocryl. Skin was then reapproximated at the dorsal incision site utilizing 3-0 Prolene in simple interrupted fashion. At this time a postoperative block was then performed about the patient's proximal foot utilizing 20 cc one-to-one mixture of 1% lidocaine plain and 0.25% Marcaine plain. The pneumatic ankle tourniquet was then deflated and a prompt hyperemic response was noted to digits of the right foot. All incision sites and areas of skin flap closure were dressed with Betadine soaked Adaptic, 4 x 4 gauze, 4 x 4 fluff, Kerlix x 2 and 4 inch Farhat wrap x 2 rolled onto the right foot. Patient tolerated the procedure and anesthesia well and was transported to PACU with vital signs stable and vascular status intact to the right foot. He will be returned to floor to continue IV antibiotics. Will remain nonweightbearing to the right foot for protection of skin flap and incision site with the assistance of a walker. He is to continue to elevate the right foot at times of rest for postoperative edema control. He will keep all dressings clean, dry, and intact to the right foot. I will continue to follow while in house. Surgical Findings: Necrotic tissue with Purulence Deep Abscess encompassing the fourth metatarsal head with extension subfifth digit and subthird digit right foot Confirmed osteomyelitis proximal phalanx fourth digit and head of the fourth metatarsal head right foot Complications Complications: No Admit VTE Documentation VTE Present on Admission: No VTE Mechan Device Prophylaxis: SCD's VTE Pharm Prophylaxis ordered?: No Reason prophylaxis not ordered: Treatment Not Indicated
--- NOTE | 2024-07-21 19:04 | PN.HOSP_ITS ---
Reason for Visit Reason for Visit: Diagnoses Elevated white blood cell count, unspecified (07/19/24) Type 2 diabetes mellitus with diabetic neuropathy, unspecified (07/19/24) Type 2 diabetes mellitus with diabetic polyneuropathy (07/19/24) Type 2 diabetes mellitus with foot ulcer (07/19/24) Type 2 diabetes mellitus with unspecified complications (07/19/24) Morbid (severe) obesity due to excess calories (07/19/24) Essential (primary) hypertension (07/19/24) Cellulitis of right lower limb (07/19/24) Non-pressure chronic ulcer of other part of right foot with fat layer exposed (07/19/24) Non-pressure chronic ulcer of other part of right foot with necrosis of bone (07/19/24) Osteomyelitis, unspecified (07/19/24) Body mass index [BMI] 45.0-49.9, adult (07/19/24) Tobacco use (07/19/24) Personal history of other diseases of the musculoskeletal system and connective tissue (07/19/24) Subjective Subjective Patient was seen and examined today, this afternoon he went to surgery for 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 Infectious diseases saw the patient today and kept the patient on vancomycin and Zosyn. I will add the patient's regular insulin regimen back since he has undergone surgery. Objective Data Objective Data Vital Signs: Vital Signs Temp Pulse Resp BP Pulse Ox O2 Del Method O2 Flow Rate 97.7 F L 85 16 165/82 H 97 Nasal Cannula 2 07/21/24 18:46 07/21/24 18:46 07/21/24 18:46 07/21/24 18:46 07/21/24 18:46 07/21/24 18:46 07/21/24 18:46 Oxygen Flow Rate (L/min) 2 Oxygen Delivery Method Nasal Cannula Weight: 157.7 kg Body Mass Index (BMI) 45.8 Intake & Output: Intake and Output for Last 24 Hours 07/19/24 07/20/24 07/21/24 23:59 23:59 23:59 Intake Total 2049 5819.4 / 5819.4 425 / 425 Output Total 2074 750 / 750 Balance 2049 3744.4 / 3744.4 -325 / -325 Lab / Micro Data 07/20/24 06:17 07/21/24 06:40 Labs: Laboratory Results - last 24 hr 07/20/24 22:42: Vancomycin Trough 29.4 H 07/20/24 22:46: POC Glucose 201 H 07/21/24 06:40: Sodium 137, Potassium 4.1, Chloride 108 H, Carbon Dioxide 24.0, Anion Gap 5, BUN 25 H, Creatinine 2.09 H, Estim Creat Clear Calc 73.78, Est GFR (MDRD) Af Amer 45 L, Est GFR (MDRD) Non-Af 38 L, BUN/Creatinine Ratio 12.0, G lucose 186 H, Hemoglobin A1c 9.2 H, Calcium 7.8 L, Phosphorus 3.0, Magnesium 2.0, Random Vancomycin 20.9 H 07/21/24 07:30: POC Glucose 191 H 07/21/24 11:40: POC Glucose 232 H Micro: Microbiology 07/19/24 21:15 Urine, Clean Catch Urine Culture - Final Mixed Gram Positive Organisms 07/19/24 20:10 Wound - Right Foot Gram Stain - Final 07/19/24 20:10 Wound - Right Foot Wound Culture - Final Streptococcus agalactiae (B) Proteus mirabilis Physical Exam Narrative alert, oriented x3 and no apparent distress Constitutional Narrative: Patient has class III obesity General Appearance: cooperative, well kempt and well developed Orientation / Consciousness: awake, oriented to person, oriented to place and oriented to time HEENT normocephalic, head/scalp atraumatic and moist oral mucous membranes Eyes PERRL, EOMs intact bilaterally and conjunctivae normal Neck supple, no JVD and thyroid normal General: trachea midline Resp normal respiratory effort, no retractions, no use of accessory muscles and clear to auscultation bilaterally Auscultation: Negative for rales, rhonchi or wheezes Cardio regular rate, regular rhythm, S1 normal heart sound, S2 normal heart sound, no murmurs, no rub and no gallops GI normal to inspection, nondistended, normoactive bowel sounds, soft to palpation, non-tender and non-distended Extremity Extremity Narrative: Generalized edema is noted over both lower legs Skin Skin Narrative: Right foot is wrapped with surgical dressing, this was not removed for examination of the area Neuro oriented x3, CN's II-XII intact bilaterally, moves all extremities and no focal motor deficits Sensorium / Orientation: awake and alert Speech: speech normal Psych affect normal Assessment & Plan Assessment/Plan (1) Diabetes mellitus with diabetic polyneuropathy: PLAN: Plan 1. Neuropathic diabetic right foot ulcer with osteomyelitis-again patient underwent surgery today, ID is participating in his care #2 type 2 diabetes-patient's insulin regimen will be restarted, I may make adjustments in the patient's insulin #3 class III obesity-complicates care, management, recovery, and prognosis #4 essential hypertension-patient will remain on his present medications #5 hyperlipidemia-patient will remain on his present medications Total clinical time spent by myself addressing patient's medical issues, reviewing all of his data, and collaborating with patient's care team: 35 minutes Charges/Coding Visit Charges Inpatient E&M: 54108 Subs Hosp L2
--- NOTE | 2024-07-21 19:28 | PN_ITS ---
Subjective Subjective Patient was seen postoperatively and denies pain to the right foot. States he is ready to eat following the procedure. Objective Data Objective Data Vital Signs: Vital Signs Temp Pulse Resp BP Pulse Ox O2 Del Method O2 Flow Rate 97.7 F L 85 16 165/82 H 97 Nasal Cannula 2 07/21/24 18:46 07/21/24 18:46 07/21/24 18:46 07/21/24 18:46 07/21/24 18:46 07/21/24 18:46 07/21/24 18:46 Oxygen Flow Rate (L/min) 2 Oxygen Delivery Method Nasal Cannula Weight: 157.7 kg Body Mass Index (BMI) 45.8 Intake & Output: Intake and Output for Last 24 Hours 07/19/24 07/20/24 07/21/24 23:59 23:59 23:59 Intake Total 2049 5819.4 / 5819.4 425 / 425 Output Total 2074 750 / 750 Balance 2049 3744.4 / 3744.4 -325 / -325 Lab / Micro Data 07/20/24 06:17 07/21/24 06:40 Labs: Laboratory Results - last 24 hr 07/20/24 22:42: Vancomycin Trough 29.4 H 07/20/24 22:46: POC Glucose 201 H 07/21/24 06:40: Sodium 137, Potassium 4.1, Chloride 108 H, Carbon Dioxide 24.0, Anion Gap 5, BUN 25 H, Creatinine 2.09 H, Estim Creat Clear Calc 73.78, Est GFR (MDRD) Af Amer 45 L, Est GFR (MDRD) Non-Af 38 L, BUN/Creatinine Ratio 12.0, G lucose 186 H, Hemoglobin A1c 9.2 H, Calcium 7.8 L, Phosphorus 3.0, Magnesium 2.0, Random Vancomycin 20.9 H 07/21/24 07:30: POC Glucose 191 H 07/21/24 11:40: POC Glucose 232 H Micro: Microbiology 07/19/24 21:15 Urine, Clean Catch Urine Culture - Final Mixed Gram Positive Organisms 07/19/24 20:10 Wound - Right Foot Gram Stain - Final 07/19/24 20:10 Wound - Right Foot Wound Culture - Final Streptococcus agalactiae (B) Proteus mirabilis Radiography Diagnostic Testing: Radiology Impression Foot X-Ray 07/21/24 17:58 IMPRESSION: Amputation at the mid fourth metatarsal. Soft tissue swelling and gas. Electronically Signed: Celeste Graves MD at 19:14 EST , Physical Exam Const alert, oriented x3 and no apparent distress General Appearance: cooperative HEENT normocephalic Eyes General Eye: normal appearance of both eyes Neck General: normal visual inspection Lymph Lymphatic: no lymphadenopathy noted and no lymphedema noted Resp normal respiratory effort Cardio regular rate and regular rhythm Extremity no calf tenderness Extremity Narrative: Right lower extremity: Vascular: DP and PT pulses palpable. CFT less than 3 seconds digit. Normal temperature gradient. Pedal hair growth noted to digits. Neurologic: Gross sensation intact. Protective sensation diminished secondary to diabetic peripheral polyneuropathy. Musculoskeletal: Muscle strength 5 of 5 age-appropriate. Decreased range of motion of the ankle joint dorsiflexion with the knee extended without pain or crepitus. Decreased range of motion of the first metatarsophalangeal joint without pain or crepitus noted. No pain to palpation about the ulcerative site subfourth metatarsal/digit. Dermatologic: Dorsal incision site sutures intact. Skin flap adjacent to the fifth digit sutures intact with healthy viability of skin flap noted. Plantar skin flap sutures intact with healthy viability of this advancement flap. Left lower extremity: Vascular: DP and PT pulses palpable. CFT less than 3 seconds to digits. Normal temperature gradient. Pedal hair growth is noted to digits. Neurologic: Gross sensation intact. Protective sensation diminished secondary to diabetic peripheral polyneuropathy. Musculoskeletal: Muscle strength 5 of 5 age-appropriate. Decreased range of motion of the ankle joint in dorsiflexion with the knee extended without pain or crepitus. Decreased range of motion of the first metatarsophalangeal joint without pain or crepitus noted. Prior amputation of second digit. Dermatologic: Cicatrix noted overlying the second metatarsal with amputation of second digit noted. There is a small eschar noted plantar to the base of the hallux without sign of infection. 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: (2) Osteomyelitis of right foot: (3) Diabetes mellitus with diabetic polyneuropathy: (4) Diabetic foot ulcer associated with type 2 diabetes mellitus: QUALIFIERS: Diabetic foot ulcer location: unspecified part of foot Laterality: right Non-pressure ulcer stage: with fat layer exposed Qualified Code(s): E11.621 - Type 2 diabetes mellitus with foot ulcer; L97.512 - Non- pressure chronic ulcer of other part of right foot with fat layer exposed (5) Cellulitis of foot, right: (6) Tobacco abuse: PLAN: Plan Patient seen and evaluated He underwent 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 DOS: 07/21/2024 Right foot: Dorsal incision site sutures intact. Skin flap adjacent to the fifth digit sutures intact with healthy viability of skin flap noted. Plantar skin flap sutures intact with healthy viability of this advancement flap. WBC 11.7 HgbA1c 9.2% on 07/20/24 Swab Culture from ED: Strep Group B and Gm Neg Joaquin Surgical cultures 07/21/2024: Swab, awaiting results; tissue/bone fourth digit, awaiting results; bone fourth metatarsal head to pathology for analysis 1 g of vancomycin powder was placed prior to closure At time of surgery fourth metatarsal head plantarly was noted to be discolored and soft consistent with acute osteomyelitis and the base of the proximal phalanx was noted to be discolored yellowish and mushy to consistency consistent with acute osteomyelitis. Also large abscess noted about the fourth metatarsal and base of the proximal phalanx of the fourth digit with extension plantarly to the base of the third digit proximal phalanx and base of the fifth digit proximal phalanx. Radiograph right foot 07/19/2024 demonstrates soft tissue swelling with no osseous abnormality. MRI right foot 07/20/2024: Plantar forefoot ulceration at level of base of fourth proximal phalanx with ulcer tract containing gas extending to the fourth MTPJ. Abnormal marrow signal and postcontrast enhancement and fourth metatarsal head and fourth proximal phalanx compatible with osteomyelitis/septic arthritis. Moderate soft tissue edema about the forefoot. I have reviewed images concur with radiographic read. Surgical dressings in place consisting of Betadine soaked Adaptic, 4 x 4 fluff, 4 x 4 gauze, Kerlix x 2, 4 inch Farhat wrap x 2 rolled onto right foot. May reinforce for strikethrough. Patient is to remain nonweightbearing to the right foot with assistance of walker. Medicine team currently following for medical management, they are appreciated. Infectious disease following for antibiotic management Wound nurse following for assistance in dressing changes Dressings to remain intact to foot through the weekend to allow for skin flap to begin to take. I will reevaluate patient with dressing change on 07/24/2024. Jr. Santy Valentin.P.M. [facility] [phone]
--- NOTE | 2024-07-21 19:36 | PCM.POSTANE2 ---
Anesthesia Postop Eval I Sum Postop Eval Completion status Anesthesia document: Postop Eval 1 completed: Yes Anesthesia Postop Eval I Summary Anesthesia Postop Eval I Summary: Anesthesia Postop Eval I: Assessment Summary Airway patent Yes 07/21/24 17:50 Spontaneous unlabored Yes 07/21/24 17:50 respirations Mental status Awake,Calm 07/21/24 17:50 nausea No 07/21/24 17:50 Vomiting No 07/21/24 17:50 Anesthesia Postop Eval I: Fluid Summary Crystalloid volume administer 1,200 07/21/24 17:52 (ml) Colloids volume administered ( ml) Blood Product volume administered (ml) Total IV fluid infused 1,200 07/21/24 17:52 Anesthesia Postop Eval I: Summary Notes Anesthesia Complication No 07/21/24 17:50 Anesthesia Complication Comment: Post-operative progress note Anesthesia: Postop Eval II Evaluation Mental status: Awake and Calm Pain Level: 1 nausea: No Vomiting: No Complications Anesthesia Complication: No
[2024-07-21] MEDS: Lactobacillis Acidophilus 1 CAP PO (22:46)
[2024-07-21] MEDS: Insulin Glargine-YFGN 100 UNIT/ML Pen 35 UNIT SC (22:47)
[2024-07-21] MEDS: Enoxaparin 40 MG/0.4 ML Syringe SC (22:48)
[2024-07-21 23:24] LABS: Bedside Glucose 257 mg/dL (74-106)
[2024-07-22] VITALS (7 sets, daily range): BP systolic 131–174; BP diastolic 88–112; PULSE 87–100; RESP 16–18; TEMP 36.6–37.3; O2SAT 96–98; BMI 46.0
[2024-07-22] MEDS: oxyCODONE 5 MG Tablet 10 MG PO ×4 (02:24→21:34)
[2024-07-22] MEDS: Piperacil/Tazobactam 3.375 GM in 0.9% Normal Saline (50mL MB+) 50 ML IV ×3 (06:39→21:27)
[2024-07-22 07:25] LABS: Bedside Glucose 234 mg/dL (74-106)
--- NOTE | 2024-07-22 08:49 | PCM.PN.HOSP ---
Reason for Visit Reason for Visit: Diagnoses Elevated white blood cell count, unspecified (07/19/24) Type 2 diabetes mellitus with diabetic neuropathy, unspecified (07/19/24) Type 2 diabetes mellitus with diabetic polyneuropathy (07/19/24) Type 2 diabetes mellitus with foot ulcer (07/19/24) Type 2 diabetes mellitus with unspecified complications (07/19/24) Morbid (severe) obesity due to excess calories (07/19/24) Essential (primary) hypertension (07/19/24) Cellulitis of right lower limb (07/19/24) Non-pressure chronic ulcer of other part of right foot with fat layer exposed (07/19/24) Non-pressure chronic ulcer of other part of right foot with necrosis of bone (07/19/24) Osteomyelitis, unspecified (07/19/24) Body mass index [BMI] 45.0-49.9, adult (07/19/24) Tobacco use (07/19/24) Personal history of other diseases of the musculoskeletal system and connective tissue (07/19/24) Subjective Subjective Still with pain in right foot. Objective Data Objective Data Vital Signs: Vital Signs Temp Pulse Resp BP Pulse Ox O2 Del Method O2 Flow Rate 37.1 C 93 16 155/112 H 97 Room Air 2 07/22/24 08:42 07/22/24 08:42 07/22/24 08:42 07/22/24 08:42 07/22/24 08:42 07/22/24 08:42 07/21/24 18:46 Oxygen Flow Rate (L/min) 2 Oxygen Delivery Method Room Air Weight: 157.8 kg Body Mass Index (BMI) 46.0 Intake & Output: Intake and Output for Last 24 Hours 07/20/24 07/21/24 07/22/24 23:59 23:59 23:59 Intake Total 5819.4 / 5819.4 425 / 425 325 / 325 Output Total 2075 / 2075 750 / 750 700 / 700 Balance 3744.4 / 3744.4 -325 / -325 -375 / -375 Lab / Micro Data 07/20/24 06:17 07/21/24 06:40 Labs: Laboratory Results - last 24 hr 07/21/24 11:40: POC Glucose 232 H 07/21/24 22:44: POC Glucose 257 H 07/22/24 06:38: POC Glucose 234 H Micro: Microbiology 07/19/24 21:15 Urine, Clean Catch Urine Culture - Final Mixed Gram Positive Organisms 07/19/24 20:10 Wound - Right Foot Gram Stain - Final 07/19/24 20:10 Wound - Right Foot Wound Culture - Final Streptococcus agalactiae (B) Proteus mirabilis Radiography Diagnostic Testing: Radiology Impression Foot X-Ray 07/21/24 14:58 IMPRESSION: Pre and postprocedural fluoroscopic spot exams. Electronically Signed: Celeste Graves MD at 20:14 EST , Foot X-Ray 07/21/24 17:58 IMPRESSION: Amputation at the mid fourth metatarsal. Soft tissue swelling and gas. Electronically Signed: Celeste Graves MD at 19:14 EST Reading Location ID and State: [facility] / [place] Tel , Service support , Physical Exam Const alert and no apparent distress Constitutional Narrative: afebrile. non-toxic. Resp normal respiratory effort, no retractions, no use of accessory muscles and clear to auscultation bilaterally Cardio regular rate, regular rhythm, S1 normal heart sound and S2 normal heart sound GI normal to inspection, nondistended, normoactive bowel sounds, soft to palpation, non-tender and non-distended Extremity Extremity Narrative: right foot wrapped--did not remove. Neuro Sensorium / Orientation: awake and alert Assessment & Plan Assessment/Plan (1) Diabetes mellitus with diabetic polyneuropathy: PLAN: Plan Right diabetic foot ulcer with osteomyelitis 4th MTP joint Dr. Hood on 07/21 performed partial 4th ray amputation right foot. I+D deep tissue abscess with wide debridement, incision of bone cortex, tissue rearrangement/skin flap plantar and dorsal right foot. Wound culture on 07/19: group B strep and preoteus mirabilis. Cultures from 07/21 pending. abx w pip/tazo and vancomycin Will consult ID for long-term abx recommendations. Will hold on formal consult as will not be able to be seen until 07/24. Chronic conditions: type 2 diabetes-pt takes U500 130 BID and glargine 50 QHS at home, now on 80 and 35, respectively. Resume home dosing if tolerating diet. class III obesity-complicates care, management, recovery, and prognosis essential hypertension-patient will remain on his present medications hyperlipidemia-resume atorvastatin VTE prophylaxis: LMWH. Charges/Coding Visit Charges Inpatient E&M: 16540 Subs Hosp L2
[2024-07-22] MEDS: Potassium Chloride Oral Tablet 20 MEQ PO (08:51)
[2024-07-22] MEDS: Insulin U-500 UNITS/ML PEN 80 UNITS SC ×2 (08:51→17:15)
[2024-07-22] MEDS: Ascorbic Acid 500 MG Tablet 1000 MG PO ×2 (08:52→17:21)
[2024-07-22] MEDS: Glucerna Shake 120 ML LIQUID PO ×2 (08:54→17:24)
[2024-07-22] MEDS: Morphine 2 MG/ML Syringe IV (10:43)
[2024-07-22] MEDS: 0.9% Saline Lock 10 ML Syringe IV ×3 (10:43→12:03)
[2024-07-22] MEDS: Lactobacillis Acidophilus 1 CAP PO ×4 (10:51→21:28)
[2024-07-22] MEDS: Metoprolol(XL)Succ 25 MG Tablet PO ×2 (10:52→21:35)
[2024-07-22] MEDS: SACUBITRIL/VALSARTAN 24/26 MG TABLET 1 EACH PO ×2 (10:53→21:35)
[2024-07-22] MEDS: Furosemide 40 MG Tablet PO (10:53)
[2024-07-22] MEDS: Enoxaparin 40 MG/0.4 ML Syringe SC ×2 (10:53→21:34)
[2024-07-22] MEDS: Spironolactone 25 MG Tablet 12.5 MG PO (10:56)
[2024-07-22 11:44] LABS: Bedside Glucose 284 mg/dL (74-106)
[2024-07-22] MEDS: Cholecalciferol (Vit D3) 125 MCG CAPSULE (5,000 UNITS) PO (12:02)
[2024-07-22] MEDS: Vancomycin HCl 1,250 MG in 0.9% Normal Saline (250mL Bag) 250 ML 167 MG IV (12:03)
[2024-07-22 17:23] LABS: Bedside Glucose 183 mg/dL (74-106)
[2024-07-22] MEDS: Insulin Glargine-YFGN 100 UNIT/ML Pen 35 UNIT SC (21:30)
[2024-07-22] MEDS: Atorvastatin Calcium 80 MG Tablet PO (21:37)
[2024-07-22 21:58] LABS: Bedside Glucose 97 mg/dL (74-106)
[2024-07-22 22:57] LABS: Vancomycin, Trough Level 25.9 ug/mL (5.0-15.0)
--- NOTE | 2024-07-22 23:03 | PCM.RX.CS ---
Consult Antibiotic Management Pharmacy has been consulted to manage selected antibiotic: Vancomycin Type of Intervention Type of Consult: Follow-up Suspected Infection Suspected Infection: Skin/Soft tissue Labs Labs: Sodium 137 mmol/L (136-145) 07/21/24 06:40 Potassium 4.1 mmol/L (3.5-5.1) 07/21/24 06:40 Chloride 108 mmol/L (98-107) H 07/21/24 06:40 Carbon Dioxide 24.0 mmol/L (21.0-32.0) 07/21/24 06:40 Anion Gap 5 (5-15) 07/21/24 06:40 BUN 25 mg/dL (7-18) H 07/21/24 06:40 Creatinine 2.09 mg/dL (0.70-1.30) H 07/21/24 06:40 Est GFR (MDRD) Af Amer 45 mL/min (>60) L 07/21/24 06:40 Est GFR (MDRD) Non-Af 38 mL/min (>60) L 07/21/24 06:40 BUN/Creatinine Ratio 12.0 RATIO (10-20) 07/21/24 06:40 Glucose 186 mg/dL (74-106) H 07/21/24 06:40 Vancomycin Trough 25.9 ug/mL (5.0-15.0) H 07/22/24 22:28 Random Vancomycin 20.9 ug/mL (0.0-15.0) H 07/21/24 06:40 Microbiology Microbiology: Microbiology 07/21/24 17:20 Incision/Surgical Site Gram Stain - Final 07/21/24 17:20 Incision/Surgical Site Wound Culture - Preliminary Beta streptococcus Gram negative venkatesh 07/21/24 17:20 Tissue - 4th Toe Gram Stain - Final 07/21/24 17:20 Tissue - 4th Toe Wound Culture - Preliminary Gram negative venkatesh Gram positive organism 07/19/24 20:37 Blood Culture (Wb) - Right Forearm Blood Culture - Preliminary No growth in 48 hours. 07/19/24 20:10 Blood Culture (Wb) - Anticubital Left Blood Culture - Preliminary No growth in 48 hours. 07/19/24 21:15 Urine, Clean Catch Urine Culture - Final Mixed Gram Positive Organisms 07/19/24 20:10 Wound - Right Foot Gram Stain - Final 07/19/24 20:10 Wound - Right Foot Wound Culture - Final Streptococcus agalactiae (B) Proteus mirabilis Dosing Weight Weight used for dosin kg Estimated Creatinine Clearance Estimated Creatinine Clearance: 74 Goal Trough Goal Trough: 15-20 mcg/mL Pharmacy Plan for Drug Dosing Pharmacy Plan for Drug Dosing: Vancomycin trough level of 25.9, drawn 10.5hrs post-dose, was above the target range of 15-20. Will suspend current dosing and draw a random vanco level in 12 hours to determine further orders. Pharmacy Service will continue to monitor and adjust dosing as required. Follow-Up Labs Follow-Up Labs: Trough: Vancomycin (random) Date/Time Labs Ordered Labs to be done on [date and time ordered]: 07-23-24 @1030 (random)
[2024-07-23] VITALS (12 sets, daily range): BP systolic 98–192; BP diastolic 60–107; PULSE 79–98; RESP 16–18; TEMP 36.5–37.3; O2SAT 94–99; BMI 47.1
[2024-07-23 04:52] LABS: Anion Gap 5 (5-15); BUN 42 mg/dL (7-18); BUN/Creat Ratio 16.2 RATIO (10-20); Calcium,Total 8.3 mg/dL (8.5-10.1); Chloride 109 mmol/L (98-107); Creatinine, Serum 2.59 mg/dL (0.70-1.30); EST Glomerular Filtration Rate 29 mL/min (>60); Est Glom Filt Rate - Afr Amer 35 mL/min (>60); Estimated Creatinine Clearance 59.56 ml/min; Glucose 113 mg/dL (74-106); Sodium Level 138 mmol/L (136-145)
[2024-07-23] MEDS: oxyCODONE 5 MG Tablet 10 MG PO ×4 (06:03→22:06)
[2024-07-23 06:05] LABS: Absolute Lymphocyte Count 1.57 X10^3/uL (0.83-4.51); Absolute Neutrophil Count 6.3 X10^3/uL (2.0-7.7); Basophil# 0.04 X10^3/uL; Basophil% 0.4 % (0-1); Eosinophil# 0.31 X10^3/uL; Eosinophils% 3.5 % (0-5); Hematocrit 30.7 % (40-54); Hemoglobin 10.5 g/dL (13.0-16.5); Lymphocyte # 1.57 X10^3/ul (0.83-4.51); Lymphocyte % 17.7 % (19-41); Mean Corp Hgb Conc 34.2 g/dL (32-36); Mean Corpuscular Hgb 27.7 pg (27.0-32.0); Mean Platelet Vol. 9.2 fl (6.2-12.0); Monocyte# 0.61 X10^3/uL; Monocyte% 6.9 % (0-10); NRBC Flagged by Analyzer 0 % (0-5); Neutrophil # 6.29 X10^3/uL (2.7-7.7); Neutrophil % 70.7 % (47-70); Platelet Count 318 K/mm3 (150-450); RBC Distribution Width CV 13.1 % (11.6-14.6); RBC Distribution Width SD 38.5 fl (35.1-43.9); Red Blood Count 3.79 M/mm3 (4.6-6.2); White Blood Count 8.9 K/mm3 (4.4-11.0)
[2024-07-23] MEDS: Piperacil/Tazobactam 3.375 GM in 0.9% Normal Saline (50mL MB+) 50 ML IV ×3 (06:05→22:15)
--- NOTE | 2024-07-23 08:46 | PN.HOSP_ITS ---
Reason for Visit Reason for Visit: Diagnoses Elevated white blood cell count, unspecified (07/19/24) Type 2 diabetes mellitus with diabetic neuropathy, unspecified (07/19/24) Type 2 diabetes mellitus with diabetic polyneuropathy (07/19/24) Type 2 diabetes mellitus with foot ulcer (07/19/24) Type 2 diabetes mellitus with unspecified complications (07/19/24) Morbid (severe) obesity due to excess calories (07/19/24) Essential (primary) hypertension (07/19/24) Cellulitis of right lower limb (07/19/24) Non-pressure chronic ulcer of other part of right foot with fat layer exposed (07/19/24) Non-pressure chronic ulcer of other part of right foot with necrosis of bone (07/19/24) Osteomyelitis, unspecified (07/19/24) Body mass index [BMI] 45.0-49.9, adult (07/19/24) Tobacco use (07/19/24) Personal history of other diseases of the musculoskeletal system and connective tissue (07/19/24) Subjective Subjective Pain better controlled with the Q4h PRN oxycodone. Objective Data Objective Data Vital Signs: Vital Signs Temp Pulse Resp BP Pulse Ox O2 Del Method O2 Flow Rate 36.8 C 98 18 187/95 H 99 Room Air 2 07/23/24 08:24 07/23/24 08:24 07/23/24 08:24 07/23/24 08:24 07/23/24 08:24 07/23/24 08:24 07/21/24 18:46 Oxygen Flow Rate (L/min) 2 Oxygen Delivery Method Room Air Weight: 161.2 kg Body Mass Index (BMI) 47.1 Intake & Output: Intake and Output for Last 24 Hours 07/21/24 07/22/24 07/23/24 23:59 23:59 23:59 Intake Total 425 / 425 1850 / 1850 600 / 600 Output Total 750 / 750 1400 / 1400 800 / 800 Balance -325 / -325 450 / 450 -200 / -200 Lab / Micro Data 07/23/24 05:50 07/23/24 04:16 Labs: Laboratory Results - last 24 hr 07/22/24 11:24: POC Glucose 284 H 07/22/24 16:54: POC Glucose 183 H 07/22/24 21:26: POC Glucose 97 07/22/24 22:28: Vancomycin Trough 25.9 H 07/23/24 04:16: WBC Cancelled, Corrected WBC Cancelled, RBC Cancelled, Hgb Cancelled, Hct Cancelled, MCV Cancelled, MCH Cancelled, MCHC Cancelled, RDW Std Deviation Cancelled, RDW Coeff of Corazon Cancelled, Plt Count Cancelled, MPV Cancelled, Immature Gran % (Auto) Cancelled, Neut % (Auto) Cancelled, Lymph % (Auto) Cancelled, [place] % (Auto) Cancelled, Eos % (Auto) Cancelled, Baso % (Auto) Cancelled, Absolute Neuts (auto) Cancelled, Absolute Lymphs (auto) Cancelled, Total Counted Cancelled, Neutrophils % (Manual) Cancelled, Band Neutrophils % Cancelled, Lymphocytes % (Manual) Cancelled, Monocytes % (Manual) Cancelled, Eosinophils % (Manual) Cancelled, Basophils % (Manual) Cancelled, Metamyelocytes % Cancelled, Myelocytes % Cancelled, Promyelocytes % Cancelled, Blast Cells % Cancelled, Plasma Cell % (Manual) Cancelled, Other Cells % Cancelled, Nucleated RBC % Cancelled, Nucleated RBCs/100 WBC Cancelled, Differential Comment Cancelled, Diff Path Review Cancelled, Hypersegmented Neuts Cancelled, Atypical Lymphocytes Cancelled, Reactive Lymphocytes Cancelled, Smudge Cells Cancelled, Toxic Granulation Cancelled, Toxic Vacuolation Cancelled, Dohle Bodies Cancelled, Charlette Rods Cancelled, Platelet Estimate Cancelled, Plt Morphology Comment Cancelled, RBC Morphology Cancelled 07/23/24 04:16: RBC Morphology Cancelled, Polychromasia Cancelled, Hypochromasia Cancelled, Basophilic Stippling Cancelled, Anisocytosis Cancelled, Microcytosis Cancelled, Macrocytosis Cancelled, Spherocytes Cancelled, Sickle Cells Cancelled, Target Cells Cancelled, Tear Drop Cells Cancelled, Ovalocytes Cancelled, Stomatocytes Cancelled, [place] Bodies Cancelled, [place] Cells Cancelled, Bite Cells Cancelled, Crenated Cell Cancelled, Acanthocytes (Spur) Cancelled, Rouleaux Cancelled, Schistocytes Cancelled, Sodium 138, Potassium 4.0, Chloride 109 H, Carbon Dioxide 24.0, Anion Gap 5, BUN 42 H, Creatinine 2.59 H, Estim Creat Clear Calc 59.56, Est GFR (MDRD) Af Amer 35 L, Est GFR (MDRD) Non-Af 29 L, BUN/Creatinine Ratio 16.2, Glucose 113 H, Calcium 8.3 L 07/23/24 05:50: WBC 8.9, RBC 3.79 L, Hgb 10.5 L, Hct 30.7 L, MCV 81.0, MCH 27.7, MCHC 34.2, RDW Std Deviation 38.5, RDW Coeff of Corazon 13.1, Plt Count 318, MPV 9.2, Immature Gran % (Auto) 0.800, Neut % (Auto) 70.7 H, Lymph % (Auto) 17.7 L, [place] % (Auto) 6.9, Eos % (Auto) 3.5, Baso % (Auto) 0.4, Absolute Neuts (auto) 6.3, Absolute Lymphs (auto) 1.57, Nucleated RBC % 0 Micro: Microbiology 07/21/24 17:20 Tissue - 4th Toe Gram Stain - Final 07/21/24 17:20 Tissue - 4th Toe Wound Culture - Preliminary Proteus mirabilis Beta streptococcus 07/21/24 17:20 Incision/Surgical Site Gram Stain - Final 07/21/24 17:20 Incision/Surgical Site Wound Culture - Preliminary Beta streptococcus Gram negative venkatesh 07/19/24 20:37 Blood Culture (Wb) - Right Forearm Blood Culture - Preliminary No growth in 48 hours. 07/19/24 20:10 Blood Culture (Wb) - Anticubital Left Blood Culture - Preliminary No growth in 48 hours. 07/19/24 21:15 Urine, Clean Catch Urine Culture - Final Mixed Gram Positive Organisms 07/19/24 20:10 Wound - Right Foot Gram Stain - Final 07/19/24 20:10 Wound - Right Foot Wound Culture - Final Streptococcus agalactiae (B) Proteus mirabilis Physical Exam Const alert and no apparent distress HEENT head/scalp atraumatic and moist oral mucous membranes Resp normal respiratory effort Extremity Extremity Narrative: right foot wrapped--did not remove. Neuro Sensorium / Orientation: awake and alert Psych affect normal Assessment & Plan Assessment/Plan (1) Diabetes mellitus with diabetic polyneuropathy: PLAN: Plan Right diabetic foot ulcer with osteomyelitis * 4th MTP joint * Dr. Hood on 07/21 performed partial 4th ray amputation right foot. I+D deep tissue abscess with wide debridement, incision of bone cortex, tissue rearrangement/skin flap plantar and dorsal right foot. * Wound culture on 07/19: group B strep and preoteus mirabilis. Cultures from 07/21 pending. * abx w pip/tazo and vancomycin * Will consult ID for long-term abx recommendations. Chronic conditions: * type 2 diabetes-pt takes U500 130 BID and glargine 50 QHS at home, now on 80 and 35, respectively. Resume home dosing if tolerating diet. * class III obesity-complicates care, management, recovery, and prognosis * essential hypertension-patient takes metoprolol succinate, sacubitril/valsartan, spironolactone. BP has been high for the most part with an isolated 98/60 reading on the AM of 07/23. Will add amlopidipine 5mg/d. * hyperlipidemia-continue atorvastatin VTE prophylaxis: LMWH. Charges/Coding Visit Charges Inpatient E&M: 68727 Subs Hosp L1
[2024-07-23] MEDS: Glucerna Shake 120 ML LIQUID PO (08:47)
[2024-07-23] MEDS: Insulin U-500 UNITS/ML PEN 80 UNITS SC ×2 (08:48→17:51)
[2024-07-23] MEDS: Potassium Chloride Oral Tablet 20 MEQ PO (08:49)
[2024-07-23] MEDS: Ascorbic Acid 500 MG Tablet 1000 MG PO ×2 (08:50→17:52)
[2024-07-23 08:54] LABS: Bedside Glucose 141 mg/dL (74-106)
[2024-07-23] MEDS: Spironolactone 25 MG Tablet 12.5 MG PO (08:56)
[2024-07-23] MEDS: Furosemide 40 MG Tablet PO (08:56)
[2024-07-23] MEDS: SACUBITRIL/VALSARTAN 24/26 MG TABLET 1 EACH PO ×2 (08:56→22:13)
[2024-07-23] MEDS: Metoprolol(XL)Succ 25 MG Tablet PO ×2 (08:57→22:12)
[2024-07-23 11:08] LABS: Vancomycin, Random Level 18.5 ug/mL (0.0-15.0)
[2024-07-23 12:08] LABS: Bedside Glucose 184 mg/dL (74-106)
[2024-07-23] MEDS: Vancomycin HCl 1,250 MG in 0.9% Normal Saline (250mL Bag) 250 ML 167 MG IV (12:48)
[2024-07-23] MEDS: Lactobacillis Acidophilus 1 CAP PO ×3 (12:53→22:13)
[2024-07-23] MEDS: Cholecalciferol (Vit D3) 125 MCG CAPSULE (5,000 UNITS) PO (12:53)
[2024-07-23] MEDS: amLODIPine 5 MG Tablet PO ×2 (12:56→15:57)
[2024-07-23 16:17] LABS: Bedside Glucose 217 mg/dL (74-106)
[2024-07-23] MEDS: 0.9% Saline Lock 10 ML Syringe IV (17:59)
[2024-07-23] MEDS: hydrALAZINE 20 MG/ML Vial 10 MG IV ×2 (17:59→22:07)
--- NOTE | 2024-07-23 18:46 | PCM.RX.CS ---
Consult Antibiotic Management Pharmacy has been consulted to manage selected antibiotic: Vancomycin Type of Intervention Type of Consult: Follow-up Suspected Infection Suspected Infection: Skin/Soft tissue Labs Labs: Sodium 138 mmol/L (136-145) 07/23/24 04:16 Potassium 4.0 mmol/L (3.5-5.1) 07/23/24 04:16 Chloride 109 mmol/L (98-107) H 07/23/24 04:16 Carbon Dioxide 24.0 mmol/L (21.0-32.0) 07/23/24 04:16 Anion Gap 5 (5-15) 07/23/24 04:16 BUN 42 mg/dL (7-18) H 07/23/24 04:16 Creatinine 2.59 mg/dL (0.70-1.30) H 07/23/24 04:16 Est GFR (MDRD) Af Amer 35 mL/min (>60) L 07/23/24 04:16 Est GFR (MDRD) Non-Af 29 mL/min (>60) L 07/23/24 04:16 BUN/Creatinine Ratio 16.2 RATIO (10-20) 07/23/24 04:16 Glucose 113 mg/dL (74-106) H 07/23/24 04:16 Vancomycin Trough 25.9 ug/mL (5.0-15.0) H 07/22/24 22:28 Random Vancomycin 18.5 ug/mL (0.0-15.0) H 07/23/24 10:18 Microbiology Microbiology: Microbiology 07/21/24 17:20 Incision/Surgical Site Gram Stain - Final 07/21/24 17:20 Incision/Surgical Site Wound Culture - Preliminary Streptococcus group B Gram negative venkatesh Staphylococcus species 07/21/24 17:20 Tissue - 4th Toe Gram Stain - Final 07/21/24 17:20 Tissue - 4th Toe Wound Culture - Preliminary Proteus mirabilis Streptococcus group B Staphylococcus species 07/19/24 20:37 Blood Culture (Wb) - Right Forearm Blood Culture - Preliminary No growth in 48 hours. 07/19/24 20:10 Blood Culture (Wb) - Anticubital Left Blood Culture - Preliminary No growth in 48 hours. 07/19/24 21:15 Urine, Clean Catch Urine Culture - Final Mixed Gram Positive Organisms 07/19/24 20:10 Wound - Right Foot Gram Stain - Final 07/19/24 20:10 Wound - Right Foot Wound Culture - Final Streptococcus agalactiae (B) Proteus mirabilis Goal Trough Goal Trough: 15-20 mcg/mL Pharmacy Plan for Drug Dosing Pharmacy Plan for Drug Dosing: VANCOMYCIN LEVEL RECEIVED Current Vancomycin Dose: on hold due to elevated trough (was 1250mg q12h) Number of Doses Received: x3 of 1250mg dose but currently on hold Vancomycin Level: 18.5 (random level) Hours Since Last Dose: 22.5 hours since last 1250mg dose Renal Function: SrCr 2.59 Renal Function Trend: SrCr increasing (was 1.27 on 07/20/24) Lab/Micro: Vancomycin Plan/Comments: due to patients 1.3 mg/dl increase in SrCr over the last 3 days, recommend dosing patient as if his CrCl < 20. Recommend a 1250mg x1 dose on today, 07/23/24 and checking a random level on 07/24/24. further doses based off of random level and renal function Pending Level: 07/24/24 at 0600 Pharmacy Service will continue to monitor and adjust dosing as required. Follow-Up Labs Follow-Up Labs: Trough: Vancomycin (07/24/24 @ 0600 (random level))
[2024-07-23] MEDS: Acetaminophen 325 MG Tablet 650 MG PO (22:07)
[2024-07-23] MEDS: Insulin Glargine-YFGN 100 UNIT/ML Pen 35 UNIT SC (22:09)
[2024-07-23] MEDS: Atorvastatin Calcium 80 MG Tablet PO (22:22)
[2024-07-23 23:43] LABS: Bedside Glucose 165 mg/dL (74-106)
[2024-07-24] VITALS (7 sets, daily range): BP systolic 142–175; BP diastolic 79–99; PULSE 80–92; RESP 16–18; TEMP 36.6–36.9; O2SAT 97–99; BMI 47.4
[2024-07-24] MEDS: Piperacil/Tazobactam 3.375 GM in 0.9% Normal Saline (50mL MB+) 50 ML IV (05:49)
[2024-07-24] MEDS: oxyCODONE 5 MG Tablet 10 MG PO ×4 (05:49→20:12)
[2024-07-24 05:52] LABS: Absolute Lymphocyte Count 1.51 X10^3/uL (0.83-4.51); Absolute Neutrophil Count 6.5 X10^3/uL (2.0-7.7); Basophil# 0.03 X10^3/uL; Basophil% 0.3 % (0-1); Eosinophil# 0.39 X10^3/uL; Eosinophils% 4.3 % (0-5); Hematocrit 29.9 % (40-54); Hemoglobin 10.2 g/dL (13.0-16.5); Lymphocyte # 1.51 X10^3/ul (0.83-4.51); Lymphocyte % 16.7 % (19-41); Mean Corp Hgb Conc 34.1 g/dL (32-36); Mean Corpuscular Hgb 27.7 pg (27.0-32.0); Mean Corpuscular Volume 81.3 fL (80-94); Mean Platelet Vol. 8.9 fl (6.2-12.0); Monocyte# 0.61 X10^3/uL; Monocyte% 6.7 % (0-10); NRBC Flagged by Analyzer 0 % (0-5); Neutrophil # 6.46 X10^3/uL (2.7-7.7); Neutrophil % 71.3 % (47-70); Platelet Count 311 K/mm3 (150-450); RBC Distribution Width CV 13.2 % (11.6-14.6); RBC Distribution Width SD 39.1 fl (35.1-43.9); Red Blood Count 3.68 M/mm3 (4.6-6.2); White Blood Count 9.1 K/mm3 (4.4-11.0)
[2024-07-24 06:21] LABS: Anion Gap 5 (5-15); BUN 39 mg/dL (7-18); BUN/Creat Ratio 15.8 RATIO (10-20); Calcium,Total 8.6 mg/dL (8.5-10.1); Chloride 110 mmol/L (98-107); Creatinine, Serum 2.47 mg/dL (0.70-1.30); EST Glomerular Filtration Rate 31 mL/min (>60); Est Glom Filt Rate - Afr Amer 37 mL/min (>60); Estimated Creatinine Clearance 63.21 ml/min; Glucose 134 mg/dL (74-106); Sodium Level 138 mmol/L (136-145)
--- NOTE | 2024-07-24 06:49 | PCM.RX.CS ---
Consult Antibiotic Management Pharmacy has been consulted to manage selected antibiotic: Vancomycin Type of Intervention Type of Consult: Follow-up Suspected Infection Suspected Infection: Skin/Soft tissue Prior Doses of Antibiotics Prior Doses of Antibiotics Received/Current Regimen: Vancomycin 1250 mg IV x 1 given 07/23/24 @ 1248 Labs Labs: Sodium 138 mmol/L (136-145) 07/24/24 05:39 Potassium 4.0 mmol/L (3.5-5.1) 07/24/24 05:39 Chloride 110 mmol/L (98-107) H 07/24/24 05:39 Carbon Dioxide 24.0 mmol/L (21.0-32.0) 07/24/24 05:39 Anion Gap 5 (5-15) 07/24/24 05:39 BUN 39 mg/dL (7-18) H 07/24/24 05:39 Creatinine 2.47 mg/dL (0.70-1.30) H 07/24/24 05:39 Est GFR (MDRD) Af Amer 37 mL/min (>60) L 07/24/24 05:39 Est GFR (MDRD) Non-Af 31 mL/min (>60) L 07/24/24 05:39 BUN/Creatinine Ratio 15.8 RATIO (10-20) 07/24/24 05:39 Glucose 134 mg/dL (74-106) H 07/24/24 05:39 Vancomycin Trough 25.9 ug/mL (5.0-15.0) H 07/22/24 22:28 Random Vancomycin 20.0 ug/mL (0.0-15.0) H 07/24/24 05:39 Microbiology Microbiology: Microbiology 07/21/24 17:20 Incision/Surgical Site Gram Stain - Final 07/21/24 17:20 Incision/Surgical Site Wound Culture - Preliminary Streptococcus group B Gram negative venkatesh Staphylococcus species 07/21/24 17:20 Tissue - 4th Toe Gram Stain - Final 07/21/24 17:20 Tissue - 4th Toe Wound Culture - Preliminary Proteus mirabilis Streptococcus group B Staphylococcus species 07/19/24 20:37 Blood Culture (Wb) - Right Forearm Blood Culture - Preliminary No growth in 48 hours. 07/19/24 20:10 Blood Culture (Wb) - Anticubital Left Blood Culture - Preliminary No growth in 48 hours. 07/19/24 21:15 Urine, Clean Catch Urine Culture - Final Mixed Gram Positive Organisms 07/19/24 20:10 Wound - Right Foot Gram Stain - Final 07/19/24 20:10 Wound - Right Foot Wound Culture - Final Streptococcus agalactiae (B) Proteus mirabilis Dosing Weight Weight used for dosin kg Estimated Creatinine Clearance Estimated Creatinine Clearance: ~ 63 Goal Trough Goal Trough: 15-20 mcg/mL Pharmacy Plan for Drug Dosing Pharmacy Plan for Drug Dosing: Vancomycin random this AM = 20.0, due to variable renal function will give another 1250 mg IV x 1 today ~ 1300 and get a random level tomorrow ~ 23.5 hours after dose to further assess for scheduled dosing thereafter. Pharmacy Service will continue to monitor and adjust dosing as required. Follow-Up Labs Follow-Up Labs: Trough: Vancomycin Date/Time Labs Ordered Labs to be done on [date and time ordered]: 07/25/24 @ 1230
[2024-07-24] MEDS: Morphine 2 MG/ML Syringe IV (07:53)
[2024-07-24] MEDS: Insulin U-500 UNITS/ML PEN 80 UNITS SC ×3 (07:56→20:12)
[2024-07-24] MEDS: Potassium Chloride Oral Tablet 20 MEQ PO (07:57)
[2024-07-24] MEDS: Ascorbic Acid 500 MG Tablet 1000 MG PO ×2 (07:58→17:39)
[2024-07-24] MEDS: Lactobacillis Acidophilus 1 CAP PO ×4 (07:59→20:11)
[2024-07-24] MEDS: Spironolactone 25 MG Tablet 12.5 MG PO (08:00)
[2024-07-24] MEDS: Furosemide 40 MG Tablet PO (08:01)
[2024-07-24] MEDS: SACUBITRIL/VALSARTAN 24/26 MG TABLET 1 EACH PO (08:01)
[2024-07-24] MEDS: Enoxaparin 40 MG/0.4 ML Syringe SC ×2 (08:02→20:13)
[2024-07-24] MEDS: Cholecalciferol (Vit D3) 125 MCG CAPSULE (5,000 UNITS) PO (08:04)
[2024-07-24] MEDS: Metoprolol(XL)Succ 25 MG Tablet PO ×2 (08:04→20:12)
--- NOTE | 2024-07-24 08:06 | PCM.PN.HOSP ---
Reason for Visit Reason for Visit: Diagnoses Elevated white blood cell count, unspecified (07/19/24) Type 2 diabetes mellitus with diabetic neuropathy, unspecified (07/19/24) Type 2 diabetes mellitus with diabetic polyneuropathy (07/19/24) Type 2 diabetes mellitus with foot ulcer (07/19/24) Type 2 diabetes mellitus with unspecified complications (07/19/24) Morbid (severe) obesity due to excess calories (07/19/24) Essential (primary) hypertension (07/19/24) Cellulitis of right lower limb (07/19/24) Non-pressure chronic ulcer of other part of right foot with fat layer exposed (07/19/24) Non-pressure chronic ulcer of other part of right foot with necrosis of bone (07/19/24) Osteomyelitis, unspecified (07/19/24) Body mass index [BMI] 45.0-49.9, adult (07/19/24) Tobacco use (07/19/24) Personal history of other diseases of the musculoskeletal system and connective tissue (07/19/24) Subjective Subjective Feels well. No new events. Objective Data Objective Data Vital Signs: Vital Signs Temp Pulse Resp BP Pulse Ox O2 Del Method O2 Flow Rate 36.7 C 88 18 155/79 H 97 Room Air 2 07/24/24 07:46 07/24/24 07:46 07/24/24 07:46 07/24/24 07:46 07/24/24 07:46 07/24/24 07:46 07/21/24 18:46 Oxygen Flow Rate (L/min) 2 Oxygen Delivery Method Room Air Weight: 162.2 kg Body Mass Index (BMI) 47.4 Intake & Output: Intake and Output for Last 24 Hours 07/22/24 07/23/24 07/24/24 23:59 23:59 23:59 Intake Total 1850 / 1850 2325 / 2325 50 / 50 Output Total 1400 / 1400 1450 / 2150 1400 / 1400 Balance 450 / 450 875 / 175 -1350 / -1350 Lab / Micro Data 07/24/24 05:39 07/24/24 05:39 Labs: Laboratory Results - last 24 hr 07/23/24 08:29: POC Glucose 141 H 07/23/24 10:18: Random Vancomycin 18.5 H 07/23/24 11:48: POC Glucose 184 H 07/23/24 15:52: POC Glucose 217 H 07/23/24 22:05: POC Glucose 165 H 07/24/24 05:39: WBC 9.1, RBC 3.68 L, Hgb 10.2 L, Hct 29.9 L, MCV 81.3, MCH 27.7, MCHC 34.1, RDW Std Deviation 39.1, RDW Coeff of Corazon 13.2, Plt Count 311, MPV 8.9, Immature Gran % (Auto) 0.700, Neut % (Auto) 71.3 H, Lymph % (Auto) 16.7 L, [place] % (Auto) 6.7, Eos % (Auto) 4.3, Baso % (Auto) 0.3, Absolute Neuts (auto) 6.5, Absolute Lymphs (auto) 1.51, Nucleated RBC % 0, Sodium 138, Potassium 4.0, Chloride 110 H, Carbon Dioxide 24.0, Anion Gap 5, BUN 39 H, Creatinine 2.47 H, Estim Creat Clear Calc 63.21, Est GFR (MDRD) Af Amer 37 L, Est GFR (MDRD) Non-Af 31 L, BUN/Creatinine Ratio 15.8, Glucose 134 H, Calcium 8.6, Random Vancomycin 20.0 H Micro: Microbiology 07/21/24 17:20 Incision/Surgical Site Gram Stain - Final 07/21/24 17:20 Incision/Surgical Site Wound Culture - Preliminary Streptococcus group B Gram negative venkatesh Staphylococcus species 07/21/24 17:20 Tissue - 4th Toe Gram Stain - Final 07/21/24 17:20 Tissue - 4th Toe Wound Culture - Preliminary Proteus mirabilis Streptococcus group B Staphylococcus species 07/19/24 20:37 Blood Culture (Wb) - Right Forearm Blood Culture - Preliminary No growth in 48 hours. 07/19/24 20:10 Blood Culture (Wb) - Anticubital Left Blood Culture - Preliminary No growth in 48 hours. 07/19/24 21:15 Urine, Clean Catch Urine Culture - Final Mixed Gram Positive Organisms 07/19/24 20:10 Wound - Right Foot Gram Stain - Final 07/19/24 20:10 Wound - Right Foot Wound Culture - Final Streptococcus agalactiae (B) Proteus mirabilis Physical Exam Const alert and no apparent distress HEENT head/scalp atraumatic and moist oral mucous membranes Resp normal respiratory effort and no retractions Extremity Extremity Narrative: right foot wrapped--did not remove. Neuro Sensorium / Orientation: awake and alert Assessment & Plan Assessment/Plan (1) Diabetes mellitus with diabetic polyneuropathy: PLAN: Plan Right diabetic foot ulcer with osteomyelitis 4th MTP joint Dr. Hood on 07/21 performed partial 4th ray amputation right foot. I+D deep tissue abscess with wide debridement, incision of bone cortex, tissue rearrangement/skin flap plantar and dorsal right foot. Wound culture on 07/19: group B strep and preoteus mirabilis. Cultures from 07/21 pending. abx w pip/tazo. Vancomycin to be held given CARLA. Will consult ID for long-term abx recommendations. CARLA worsening since 07/21. Suspect due to vancomycin, which will be held. Additionally, hold Entresto, furosemide, spironolactone. Will give IVF. Monitor. Chronic conditions: type 2 diabetes-pt takes U500 130 BID and glargine 50 QHS at home, now on 80 and 35, respectively. Resume home dosing if tolerating diet. class III obesity-complicates care, management, recovery, and prognosis essential hypertension-patient takes metoprolol succinate, sacubitril/valsartan, spironolactone. BP has been high for the most part with an isolated 98/60 reading on the AM of 07/23. Will add amlopidipine 5mg/d. hyperlipidemia-continue atorvastatin VTE prophylaxis: LMWH. Charges/Coding Visit Charges Inpatient E&M: 76532 Subs Hosp L2
--- NOTE | 2024-07-24 08:06 | PCM.PROGNOTE ---
Subjective Subjective Patient seen early this a.m. resting in bed. States he does have some slight tenderness to the plantar aspect of the foot but overall doing well. Does report some bleeding to the dressing yesterday but this was reinforced. Continues to remain nonweightbearing with the assistance of a walker. Denies constitutional symptoms. Denies further complaints. Objective Data Objective Data Vital Signs: Vital Signs Temp Pulse Resp BP Pulse Ox O2 Del Method O2 Flow Rate 98.1 F 88 18 155/79 H 97 Room Air 2 07/24/24 07:46 07/24/24 07:46 07/24/24 07:46 07/24/24 07:46 07/24/24 07:46 07/24/24 07:46 07/21/24 18:46 Oxygen Flow Rate (L/min) 2 Oxygen Delivery Method Room Air Weight: 162.2 kg Body Mass Index (BMI) 47.4 Intake & Output: Intake and Output for Last 24 Hours 07/22/24 07/23/24 07/24/24 23:59 23:59 23:59 Intake Total 1850 / 1850 2325 / 2325 50 / 50 Output Total 1400 / 1400 1450 / 2150 1400 / 1400 Balance 450 / 450 875 / 175 -1350 / -1350 Lab / Micro Data 07/24/24 05:39 07/24/24 05:39 Labs: Laboratory Results - last 24 hr 07/23/24 08:29: POC Glucose 141 H 07/23/24 10:18: Random Vancomycin 18.5 H 07/23/24 11:48: POC Glucose 184 H 07/23/24 15:52: POC Glucose 217 H 07/23/24 22:05: POC Glucose 165 H 07/24/24 05:39: WBC 9.1, RBC 3.68 L, Hgb 10.2 L, Hct 29.9 L, MCV 81.3, MCH 27.7, MCHC 34.1, RDW Std Deviation 39.1, RDW Coeff of Corazon 13.2, Plt Count 311, MPV 8.9, Immature Gran % (Auto) 0.700, Neut % (Auto) 71.3 H, Lymph % (Auto) 16.7 L, [place] % (Auto) 6.7, Eos % (Auto) 4.3, Baso % (Auto) 0.3, Absolute Neuts (auto) 6.5, Absolute Lymphs (auto) 1.51, Nucleated RBC % 0, Sodium 138, Potassium 4.0, Chloride 110 H, Carbon Dioxide 24.0, Anion Gap 5, BUN 39 H, Creatinine 2.47 H, Estim Creat Clear Calc 63.21, Est GFR (MDRD) Af Amer 37 L, Est GFR (MDRD) Non-Af 31 L, BUN/Creatinine Ratio 15.8, Glucose 134 H, Calcium 8.6, Random Vancomycin 20.0 H Micro: Microbiology 07/21/24 17:20 Incision/Surgical Site Gram Stain - Final 07/21/24 17:20 Incision/Surgical Site Wound Culture - Preliminary Streptococcus agalactiae (B) Proteus mirabilis Staphylococcus simulans 07/21/24 17:20 Tissue - 4th Toe Gram Stain - Final 07/21/24 17:20 Tissue - 4th Toe Wound Culture - Preliminary Proteus mirabilis Streptococcus group B Staphylococcus species 07/19/24 20:37 Blood Culture (Wb) - Right Forearm Blood Culture - Preliminary No growth in 48 hours. 07/19/24 20:10 Blood Culture (Wb) - Anticubital Left Blood Culture - Preliminary No growth in 48 hours. 07/19/24 21:15 Urine, Clean Catch Urine Culture - Final Mixed Gram Positive Organisms 07/19/24 20:10 Wound - Right Foot Gram Stain - Final 07/19/24 20:10 Wound - Right Foot Wound Culture - Final Streptococcus agalactiae (B) Proteus mirabilis Physical Exam Const alert, oriented x3 and no apparent distress General Appearance: cooperative HEENT normocephalic Eyes General Eye: normal appearance of both eyes Neck General: normal visual inspection Lymph Lymphatic: no lymphadenopathy noted and no lymphedema noted Resp normal respiratory effort Cardio regular rate and regular rhythm Extremity no calf tenderness Extremity Narrative: Right lower extremity: Vascular: DP and PT pulses palpable. CFT less than 3 seconds digit. Normal temperature gradient. Pedal hair growth noted to digits. Neurologic: Gross sensation intact. Protective sensation diminished secondary to diabetic peripheral polyneuropathy. Musculoskeletal: Muscle strength 5 of 5 age-appropriate. Decreased range of motion of the ankle joint dorsiflexion with the knee extended without pain or crepitus. Decreased range of motion of the first metatarsophalangeal joint without pain or crepitus noted. No pain to palpation about the ulcerative site subfourth metatarsal/digit. Dermatologic: Dorsal incision site sutures intact. Skin flap adjacent to the fifth digit sutures intact with healthy viability of skin flap noted. Plantar skin flap sutures intact with healthy viability of this advancement flap. Left lower extremity: Vascular: DP and PT pulses palpable. CFT less than 3 seconds to digits. Normal temperature gradient. Pedal hair growth is noted to digits. Neurologic: Gross sensation intact. Protective sensation diminished secondary to diabetic peripheral polyneuropathy. Musculoskeletal: Muscle strength 5 of 5 age-appropriate. Decreased range of motion of the ankle joint in dorsiflexion with the knee extended without pain or crepitus. Decreased range of motion of the first metatarsophalangeal joint without pain or crepitus noted. Prior amputation of second digit. Dermatologic: Cicatrix noted overlying the second metatarsal with amputation of second digit noted. There is a small eschar noted plantar to the base of the hallux without sign of infection. 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: (2) Osteomyelitis of right foot: (3) Diabetes mellitus with diabetic polyneuropathy: (4) Diabetic foot ulcer associated with type 2 diabetes mellitus: QUALIFIERS: Diabetic foot ulcer location: unspecified part of foot Laterality: right Non-pressure ulcer stage: with fat layer exposed Qualified Code(s): E11.621 - Type 2 diabetes mellitus with foot ulcer; L97.512 - Non-pressure chronic ulcer of other part of right foot with fat layer exposed (5) Cellulitis of foot, right: (6) Tobacco abuse: PLAN: Plan Patient seen and evaluated He underwent 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 DOS: 07/21/2024. POD #3 Right foot: Dorsal incision site sutures intact. Skin flap adjacent to the fifth digit sutures intact with healthy viability of skin flap noted. Plantar skin flap sutures intact with healthy viability of this advancement flap. Erythema continues receding. WBC 9.1 HgbA1c 9.2% on 07/20/24 Swab Culture from ED: Strep Group B and Gm Neg Jo[facility] Surgical cultures 07/21/2024: Swab, strep group B, Proteus, Staph simulans; tissue/bone fourth digit, Strep Group B, Proteus, Staph sp; bone fourth metatarsal head to pathology for analysis 1 g of vancomycin powder was placed prior to closure Dressing changed consisting of Betadine soaked Adaptic, 4 x 4 fluff, 4 x 4 gauze, Kerlix x 2, 4 inch Farhat wrap x 2 rolled onto right foot. Nursing may reinforce for strikethrough. Patient is to remain nonweightbearing to the right foot with assistance of walker. Medicine team currently following for medical management, they are appreciated. Infectious disease following for antibiotic management Wound nurse following for assistance in dressing changes May continue Oxyir 5 mg as needed for pain At this time foot is doing well and skin flaps are pink, viable and healthy. From podiatric standpoint foot is improved following surgical intervention. Following his discharge he may follow-up in office for continued postoperative care. Jr. Diane ValentinP.M. [facility] [place] [phone]
[2024-07-24] MEDS: amLODIPine 10 MG Tablet PO (10:47)
--- NOTE | 2024-07-24 11:51 | NURSING ---
Called returned to sister, Yareli. Update provided upon request.
[2024-07-24 11:52] LABS: Bedside Glucose 199 mg/dL (74-106)
--- NOTE | 2024-07-24 12:37 | CASEMGMT ---
Social Work SW spoke w/pt in room in regard to discharge plan. Pt still plans to return home at discharge, but would like home health care. SW will let CM know. SW also inquired if his family has been able to get to [place] to get his DME, he states they have not yet been able to get his DME, but they will try. Pt told SW he has a glucose machine, bedside commode and walker in [place]. SW remains available for any additional discharge needs, CM aware pt wants [facility]. TANIA Gutierrez
--- NOTE | 2024-07-24 13:59 | CASEMGMT ---
ISSAC ESCOBAR into pt room. Pt states his sister is at his old house now cleaning, ISSAC ESCOBAR asked Pt to call sister to see if she can get his DME - knee scooter, walker, BGM, etc. while she is there. Pt states I will try. Pt states he can buy a new BGM if needed. Denies needing any additional DME at time of DC. Pt states he would like HHC services. ISSAC ESCOBAR will provide a list of HHC agencies in the area covered by pt insurance.
--- NOTE | 2024-07-24 14:02 | CASEMGMT ---
Discharge Planning A list of HH providers including quality and resource use data and consistent with the patient's preferred geographic region, medical needs, and insurance network was created in [facility] Guide.? This list was provided to the RN SHAWN. Jasmyn Tanner, Discharge Planning Asst.
--- NOTE | 2024-07-24 14:28 | CASEMGMT ---
Social Work Pt is now agreeable to SNF. SW provided to pt lists from [facility] of longterm facilities in network w/pt's insurance, in pt's preferred geographic areas(did one list for [place] and one for [place]), and complete w/quality and resource use data. SW reviewed the list w/pt. He is agreeable to any SNF in [place] or [place], would like referrals made in star order. The order would be [place], [facility], [facility], [facility] [place] and then [facility]. NOAH explained we will start the referral process today. NOAH spoke w/Jasmyn, d/c planning supervisor. She will start the referral process. NOAH will continue to follow. TANIA Gutierrez
[2024-07-24] MEDS: 0.9% Normal Saline (1000mL) 1,000 ML 150 ML IV (14:40)
[2024-07-24] MEDS: Ampicillin/Sulbactam 3 GM in 0.9% Normal Saline (100mL MB+) 100 ML IV ×2 (14:40→22:49)
--- NOTE | 2024-07-24 15:36 | CASEMGMT ---
Addendum entered by Jasmyn Tanner 07/27/24 15:28: Requested updates sent to [facility]. Pt was found to have [employer] [facility]SSA. [facility] has submitted for precert. Jasmyn Tanner DC Planning Asst. Addendum entered by Jasmyn Tanner 07/26/24 09:19: [facility] has accepted. updated. Jasmyn Tanner DC Planning Asst. Addendum entered by Jasmyn Tanner 07/25/24 14:52: [facility] has declined. updated. Jasmyn Tanner DC Planning Asst. Addendum entered by Jasmyn Tanner 07/24/24 16:21: [facility] has declined d/t weight limit. Jasmyn Tanner DC Planning Asst. Original Note: SNF referral sent via [facility] to [facility], [facility], and [facility]. Jasmyn Tanner DC Planning Asst.
[2024-07-24] MEDS: Vancomycin HCl 1,250 MG in 0.9% Normal Saline (250mL Bag) 250 ML 167 MG IV (15:37)
[2024-07-24 16:21] LABS: Bedside Glucose 193 mg/dL (74-106)
--- NOTE | 2024-07-24 16:29 | PCM.PN.ID ---
Physical Exam Narrative Feeling better, foot less sore, no fever, no n/v/d. Const alert and no apparent distress General Appearance: cooperative Resp normal air movement and clear to auscultation bilaterally Cardio regular rate and regular rhythm GI soft to palpation, non-tender and non-distended Skin Skin Narrative: foot wrapped ID ID: Route of nutrition/ use of supplements: [] Nutritional Intake: [] IV Site: [] De Oliveira Catheter: [] Assessment & Plan Assessment/Plan (1) Diabetes mellitus with diabetic polyneuropathy: (2) Osteomyelitis of right foot: PLAN: OR 07/21/24 for gangrene and osteo, wound cx with proteus, staph, and strep so far. Will narrow to vanc/unasyn Will follow
[2024-07-24] MEDS: Atorvastatin Calcium 80 MG Tablet PO (20:12)
[2024-07-24] MEDS: Acetaminophen 325 MG Tablet 650 MG PO (20:13)
[2024-07-24] MEDS: 0.9% Saline Lock 10 ML Syringe IV (20:14)
[2024-07-24 21:49] LABS: Bedside Glucose 156 mg/dL (74-106)
[2024-07-24 21:49] LABS: Bedside Glucose 149 mg/dL (74-106)
[2024-07-24 22:39] LABS: Bedside Glucose 142 mg/dL (74-106)
[2024-07-24 23:32] LABS: Bedside Glucose 127 mg/dL (74-106)
[2024-07-25] VITALS (8 sets, daily range): BP systolic 150–198; BP diastolic 81–102; PULSE 78–104; RESP 15–18; TEMP 36.5–36.9; O2SAT 96–97
[2024-07-25 00:53] LABS: Bedside Glucose 98 mg/dL (74-106)
[2024-07-25] MEDS: oxyCODONE 5 MG Tablet 10 MG PO ×5 (01:47→22:40)
[2024-07-25 02:15] LABS: Bedside Glucose 112 mg/dL (74-106)
[2024-07-25] MEDS: Ampicillin/Sulbactam 3 GM in 0.9% Normal Saline (100mL MB+) 100 ML IV ×3 (06:05→21:02)
[2024-07-25] MEDS: Acetaminophen 325 MG Tablet 650 MG PO ×2 (06:10→12:56)
[2024-07-25 07:23] LABS: Absolute Neutrophil Count 6.3 X10^3/uL (2.0-7.7); Basophil# 0.04 X10^3/uL; Basophil% 0.5 % (0-1); Eosinophils% 3.5 % (0-5); Hematocrit 31.5 % (40-54); Hemoglobin 10.6 g/dL (13.0-16.5); Lymphocyte % 14.1 % (19-41); Mean Corp Hgb Conc 33.7 g/dL (32-36); Mean Corpuscular Hgb 27.6 pg (27.0-32.0); Mean Platelet Vol. 9.3 fl (6.2-12.0); NRBC Flagged by Analyzer 0 % (0-5); Neutrophil # 6.31 X10^3/uL (2.7-7.7); Neutrophil % 74.1 % (47-70); Platelet Count 329 K/mm3 (150-450); RBC Distribution Width CV 13.1 % (11.6-14.6); RBC Distribution Width SD 38.7 fl (35.1-43.9); Red Blood Count 3.84 M/mm3 (4.6-6.2); White Blood Count 8.5 K/mm3 (4.4-11.0)
--- NOTE | 2024-07-25 07:33 | PCM.PN.HOSP ---
Reason for Visit Reason for Visit: Diagnoses Elevated white blood cell count, unspecified (07/19/24) Type 2 diabetes mellitus with diabetic neuropathy, unspecified (07/19/24) Type 2 diabetes mellitus with diabetic polyneuropathy (07/19/24) Type 2 diabetes mellitus with foot ulcer (07/19/24) Type 2 diabetes mellitus with unspecified complications (07/19/24) Morbid (severe) obesity due to excess calories (07/19/24) Essential (primary) hypertension (07/19/24) Cellulitis of right lower limb (07/19/24) Non-pressure chronic ulcer of other part of right foot with fat layer exposed (07/19/24) Non-pressure chronic ulcer of other part of right foot with necrosis of bone (07/19/24) Osteomyelitis, unspecified (07/19/24) Body mass index [BMI] 45.0-49.9, adult (07/19/24) Tobacco use (07/19/24) Personal history of other diseases of the musculoskeletal system and connective tissue (07/19/24) Subjective Subjective Feels well. Pain improving. Objective Data Objective Data Vital Signs: Vital Signs Temp Pulse Resp BP Pulse Ox O2 Del Method O2 Flow Rate 36.7 C 85 18 180/81 H 96 Room Air 2 07/25/24 01:55 07/25/24 01:55 07/25/24 01:55 07/25/24 01:55 07/25/24 01:55 07/25/24 01:55 07/21/24 18:46 Oxygen Flow Rate (L/min) 2 Oxygen Delivery Method Room Air Weight: 162.2 kg Body Mass Index (BMI) 47.4 Intake & Output: Intake and Output for Last 24 Hours 07/23/24 07/24/24 07/25/24 23:59 23:59 23:59 Intake Total 2325 / 2325 2394 / 2394 212.75 / 212.75 Output Total 1450 / 2150 2900 / 2900 450 / 450 Balance 875 / 175 -506 / -506 -237.25 / -237.25 Lab / Micro Data 07/25/24 06:59 07/25/24 06:59 Labs: Laboratory Results - last 24 hr 07/24/24 11:32: POC Glucose 199 H 07/24/24 16:02: POC Glucose 193 H 07/24/24 20:16: POC Glucose 156 H 07/24/24 21:13: POC Glucose 149 H 07/24/24 22:09: POC Glucose 142 H 07/24/24 23:03: POC Glucose 127 H 07/25/24 00:32: POC Glucose 98 07/25/24 01:46: POC Glucose 112 H 07/25/24 06:59: WBC 8.5, RBC 3.84 L, Hgb 10.6 L, Hct 31.5 L, MCV 82.0, MCH 27.6, MCHC 33.7, RDW Std Deviation 38.7, RDW Coeff of Corazon 13.1, Plt Count 329, MPV 9.3, Immature Gran % (Auto) 0.800, Neut % (Auto) 74.1 H, Lymph % (Auto) 14.1 L, Josephine % (Auto) 7.0, Eos % (Auto) 3.5, Baso % (Auto) 0.5, Absolute Neuts (auto) 6.3, Absolute Lymphs (auto) 1.20, Nucleated RBC % 0 Micro: Microbiology 07/19/24 20:37 Blood Culture (Wb) - Right Forearm Blood Culture - Final No growth in 5 days. 07/19/24 20:10 Blood Culture (Wb) - Anticubital Left Blood Culture - Final No growth in 5 days. 07/21/24 17:20 Tissue - 4th Toe Gram Stain - Final 07/21/24 17:20 Tissue - 4th Toe Wound Culture - Preliminary Proteus mirabilis Streptococcus agalactiae (B) Staphylococcus epidermidis 07/21/24 17:20 Tissue - 4th Toe Anaerobic Culture - Preliminary Checking for anaerobes, further studies to follow. 07/21/24 17:20 Incision/Surgical Site Gram Stain - Final 07/21/24 17:20 Incision/Surgical Site Wound Culture - Preliminary Streptococcus agalactiae (B) Proteus mirabilis Staphylococcus simulans 07/21/24 17:20 Incision/Surgical Site Anaerobic Culture - Preliminary Checking for anaerobes, further studies to follow. 07/19/24 21:15 Urine, Clean Catch Urine Culture - Final Mixed Gram Positive Organisms 07/19/24 20:10 Wound - Right Foot Gram Stain - Final 07/19/24 20:10 Wound - Right Foot Wound Culture - Final Streptococcus agalactiae (B) Proteus mirabilis Physical Exam Const alert and no apparent distress HEENT head/scalp atraumatic and moist oral mucous membranes Resp normal respiratory effort and no retractions Extremity Extremity Narrative: right foot wrapped--did not remove. Assessment & Plan Assessment/Plan (1) Diabetes mellitus with diabetic polyneuropathy: PLAN: Plan Right diabetic foot ulcer with osteomyelitis 4th MTP joint Dr. Hood on 07/21 performed partial 4th ray amputation right foot. I+D deep tissue abscess with wide debridement, incision of bone cortex, tissue rearrangement/skin flap plantar and dorsal right foot. Wound culture on 07/19: group B strep and preoteus mirabilis. Cultures from 07/21 pending. abx w amp/SB and vancomycin. CARLA Improved today. Suspect due to vancomycin, which will be held. Additionally, hold Entresto, furosemide, spironolactone. Will give IVF. Monitor. Chronic conditions: type 2 diabetes-pt takes U500 130 BID and glargine 50 QHS at home, now on 80 and 35, respectively. Resume home dosing if tolerating diet. class III obesity-complicates care, management, recovery, and prognosis essential hypertension-patient takes metoprolol succinate, sacubitril/valsartan, spironolactone. BP has been high for the most part with an isolated 98/60 reading on the AM of 07/23. Will add amlodipine 5mg/d. hyperlipidemia-continue atorvastatin VTE prophylaxis: LMWH. Charges/Coding Visit Charges Inpatient E&M: 88140 Subs Hosp L1
[2024-07-25 07:41] LABS: Anion Gap 6 (5-15); BUN 38 mg/dL (7-18); BUN/Creat Ratio 16.5 RATIO (10-20); Calcium,Total 9.1 mg/dL (8.5-10.1); Chloride 109 mmol/L (98-107); EST Glomerular Filtration Rate 34 mL/min (>60); Est Glom Filt Rate - Afr Amer 41 mL/min (>60); Estimated Creatinine Clearance 68.13 ml/min; Glucose 169 mg/dL (74-106); Potassium 4.3 mmol/L (3.5-5.1); Sodium Level 141 mmol/L (136-145)
[2024-07-25] MEDS: amLODIPine 10 MG Tablet PO (08:22)
[2024-07-25] MEDS: Enoxaparin 40 MG/0.4 ML Syringe SC ×2 (08:22→20:50)
[2024-07-25] MEDS: Ascorbic Acid 500 MG Tablet 1000 MG PO ×2 (08:22→17:15)
[2024-07-25] MEDS: Metoprolol(XL)Succ 25 MG Tablet PO ×2 (08:23→20:50)
[2024-07-25] MEDS: Potassium Chloride Oral Tablet 20 MEQ PO (08:23)
[2024-07-25] MEDS: Lactobacillis Acidophilus 1 CAP PO ×4 (08:23→20:50)
[2024-07-25] MEDS: Cholecalciferol (Vit D3) 125 MCG CAPSULE (5,000 UNITS) PO (08:23)
[2024-07-25] MEDS: 0.9% Saline Lock 10 ML Syringe IV ×2 (08:35→12:58)
[2024-07-25] MEDS: Morphine 2 MG/ML Syringe IV ×2 (08:35→21:02)
[2024-07-25 09:00] LABS: Bedside Glucose 187 mg/dL (74-106)
[2024-07-25] MEDS: Insulin U-500 UNITS/ML PEN 80 UNITS SC ×2 (09:12→17:16)
--- NOTE | 2024-07-25 10:23 | PCM.PN.ID ---
Physical Exam Narrative Feeling better, no fever, no n/v/d. Const alert and no apparent distress General Appearance: cooperative Resp normal air movement and clear to auscultation bilaterally Cardio regular rate and regular rhythm GI soft to palpation, non-tender and non-distended Skin Skin Narrative: R foot wrapped ID ID: Route of nutrition/ use of supplements: [] Nutritional Intake: [] IV Site: [] De Oliveira Catheter: [] Assessment & Plan Assessment/Plan (1) Diabetes mellitus with diabetic polyneuropathy: (2) Osteomyelitis of right foot: PLAN: Taken to OR by Dr. Hood 07/21/24 for partial 4th ray amputation R foot due to gas gangrene and osteo, wound cx with proteus, MRSE, MS-CoNS, and strep. On vanc/unasyn. With complete resection of infected bone, plan for discharge is 10 days po linezolid and augmentin. Wrote rx, d/w adult protective caseworker. ID followup prn. Will follow
--- NOTE | 2024-07-25 10:28 | CASEMGMT ---
Social Work- SW met with pt to discuss d/c plans. Pt states that he does not want to be placed back on Monjaro d/t unwanted side effects. Pt states he thinks he has one does of monjaro at home, but is unable to have someone bring it in at this time. SW collaborated with physician and discharge planning specialist to coordinate discharge plans. Pt updated SNF are reviewing referrals. SW remains available to follow. LEONLE Casper
--- NOTE | 2024-07-25 12:03 | WOUNDNOTE ---
wound photo: right foot
--- NOTE | 2024-07-25 12:03 | WOUNDNOTE ---
wound photo: right foot
[2024-07-25 12:50] LABS: Vancomycin, Trough Level 17.6 ug/mL (5.0-15.0)
--- NOTE | 2024-07-25 12:56 | PCM.RX.CS ---
Consult Antibiotic Management Pharmacy has been consulted to manage selected antibiotic: Vancomycin Type of Intervention Type of Consult: Follow-up Suspected Infection Suspected Infection: Skin/Soft tissue Prior Doses of Antibiotics Prior Doses of Antibiotics Received/Current Regimen: Vancomycin 1250 mg IV x 1 given 07/24/24 @ 1537 Labs Labs: Sodium 141 mmol/L (136-145) 07/25/24 06:59 Potassium 4.3 mmol/L (3.5-5.1) 07/25/24 06:59 Chloride 109 mmol/L (98-107) H 07/25/24 06:59 Carbon Dioxide 26.0 mmol/L (21.0-32.0) 07/25/24 06:59 Anion Gap 6 (5-15) 07/25/24 06:59 BUN 38 mg/dL (7-18) H 07/25/24 06:59 Creatinine 2.30 mg/dL (0.70-1.30) H 07/25/24 06:59 Est GFR (MDRD) Af Amer 41 mL/min (>60) L 07/25/24 06:59 Est GFR (MDRD) Non-Af 34 mL/min (>60) L 07/25/24 06:59 BUN/Creatinine Ratio 16.5 RATIO (10-20) 07/25/24 06:59 Glucose 169 mg/dL (74-106) H 07/25/24 06:59 Vancomycin Trough 17.6 ug/mL (5.0-15.0) H 07/25/24 12:15 Random Vancomycin 20.0 ug/mL (0.0-15.0) H 07/24/24 05:39 Microbiology Microbiology: Microbiology 07/21/24 17:20 Incision/Surgical Site Gram Stain - Final 07/21/24 17:20 Incision/Surgical Site Wound Culture - Preliminary Streptococcus agalactiae (B) Proteus mirabilis Staphylococcus simulans 07/21/24 17:20 Incision/Surgical Site Anaerobic Culture - Preliminary Checking for anaerobes, further studies to follow. 07/21/24 17:20 Tissue - 4th Toe Gram Stain - Final 07/21/24 17:20 Tissue - 4th Toe Wound Culture - Preliminary Proteus mirabilis Streptococcus agalactiae (B) Staphylococcus epidermidis 07/21/24 17:20 Tissue - 4th Toe Anaerobic Culture - Preliminary Checking for anaerobes, further studies to follow. 07/19/24 20:37 Blood Culture (Wb) - Right Forearm Blood Culture - Final No growth in 5 days. 07/19/24 20:10 Blood Culture (Wb) - Anticubital Left Blood Culture - Final No growth in 5 days. 07/19/24 21:15 Urine, Clean Catch Urine Culture - Final Mixed Gram Positive Organisms 07/19/24 20:10 Wound - Right Foot Gram Stain - Final 07/19/24 20:10 Wound - Right Foot Wound Culture - Final Streptococcus agalactiae (B) Proteus mirabilis Dosing Weight Weight used for dosin kg Estimated Creatinine Clearance Estimated Creatinine Clearance: ~ 68 Goal Trough Goal Trough: 15-20 mcg/mL Pharmacy Plan for Drug Dosing Pharmacy Plan for Drug Dosing: Vancomycin trough = 17.6, it appears renal function has stabilized, will resume dosing with 1250 mg Q24H Pharmacy Service will continue to monitor and adjust dosing as required. Follow-Up Labs Follow-Up Labs: Trough: Vancomycin Date/Time Labs Ordered Labs to be done on [date and time ordered]: 07/27/24 @ 1723
[2024-07-25] MEDS: Vancomycin HCl 1,250 MG in 0.9% Normal Saline (250mL Bag) 250 ML 167 MG IV (14:13)
[2024-07-25 17:29] LABS: Bedside Glucose 199 mg/dL (74-106)
[2024-07-25] MEDS: Atorvastatin Calcium 80 MG Tablet PO (20:50)
[2024-07-25] MEDS: Insulin Glargine-YFGN 100 UNIT/ML Pen 35 UNIT SC (21:01)
[2024-07-25] MEDS: hydrALAZINE 20 MG/ML Vial 10 MG IV (22:40)
[2024-07-25 23:14] LABS: Bedside Glucose 168 mg/dL (74-106)
[2024-07-26] VITALS (11 sets, daily range): BP systolic 149–197; BP diastolic 76–111; PULSE 82–95; RESP 16–18; TEMP 36.6–36.8; O2SAT 96–97
[2024-07-26] MEDS: oxyCODONE 5 MG Tablet 10 MG PO ×5 (03:12→22:27)
[2024-07-26] MEDS: Ampicillin/Sulbactam 3 GM in 0.9% Normal Saline (100mL MB+) 100 ML IV ×3 (05:34→22:25)
[2024-07-26 07:26] LABS: Anion Gap 7 (5-15); BUN 39 mg/dL (7-18); BUN/Creat Ratio 16.9 RATIO (10-20); Calcium,Total 9.1 mg/dL (8.5-10.1); Chloride 109 mmol/L (98-107); Creatinine, Serum 2.31 mg/dL (0.70-1.30); EST Glomerular Filtration Rate 33 mL/min (>60); Est Glom Filt Rate - Afr Amer 40 mL/min (>60); Estimated Creatinine Clearance 67.83 ml/min; Glucose 133 mg/dL (74-106); Potassium 4.2 mmol/L (3.5-5.1); Sodium Level 141 mmol/L (136-145)
[2024-07-26] MEDS: Cholecalciferol (Vit D3) 125 MCG CAPSULE (5,000 UNITS) PO (08:02)
[2024-07-26] MEDS: Lactobacillis Acidophilus 1 CAP PO ×4 (08:02→22:27)
[2024-07-26] MEDS: Metoprolol(XL)Succ 25 MG Tablet PO (08:02)
[2024-07-26] MEDS: Ascorbic Acid 500 MG Tablet 1000 MG PO ×2 (08:02→16:53)
[2024-07-26] MEDS: amLODIPine 10 MG Tablet PO (08:02)
[2024-07-26] MEDS: Enoxaparin 40 MG/0.4 ML Syringe SC ×2 (08:03→22:27)
[2024-07-26] MEDS: Potassium Chloride Oral Tablet 20 MEQ PO (08:03)
[2024-07-26] MEDS: Acetaminophen 325 MG Tablet 650 MG PO ×2 (08:08→17:00)
[2024-07-26] MEDS: hydrALAZINE 20 MG/ML Vial 10 MG IV (08:08)
[2024-07-26] MEDS: 0.9% Saline Lock 10 ML Syringe IV ×3 (08:09→23:08)
[2024-07-26] MEDS: Insulin U-500 UNITS/ML PEN 80 UNITS SC ×2 (08:16→16:51)
--- NOTE | 2024-07-26 08:28 | PCM.PN.HOSP ---
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 Denies new complaints. Objective Data Objective Data Vital Signs: Vital Signs Temp Pulse Resp BP Pulse Ox O2 Del Method O2 Flow Rate 36.7 C 95 18 197/111 H 97 Room Air 2 07/26/24 07:58 07/26/24 08:08 07/26/24 07:58 07/26/24 08:08 07/26/24 07:58 07/26/24 07:58 07/21/24 18:46 Oxygen Flow Rate (L/min) 2 Oxygen Delivery Method Room Air Weight: 162.2 kg Body Mass Index (BMI) 47.4 Intake & Output: Intake and Output for Last 24 Hours 07/24/24 07/25/24 07/26/24 23:59 23:59 23:59 Intake Total 2394 / 2394 1711.75 / 1711.75 112 / 112 Output Total 2900 / 2900 4100 / 4100 1400 / 1400 Balance -506 / -506 -2388.25 / -2388.25 -1288 / -1288 Lab / Micro Data 07/25/24 06:59 07/26/24 06:15 Labs: Laboratory Results - last 24 hr 07/25/24 08:16: POC Glucose 187 H 07/25/24 12:15: Vancomycin Trough 17.6 H 07/25/24 17:11: POC Glucose 199 H 07/25/24 21:00: POC Glucose 168 H 07/26/24 06:15: Sodium 141, Potassium 4.2, Chloride 109 H, Carbon Dioxide 25.0, Anion Gap 7, BUN 39 H, Creatinine 2.31 H, Estim Creat Clear Calc 67.83, Est GFR (MDRD) Af Amer 40 L, Est GFR (MDRD) Non-Af 33 L, BUN/Creatinine Ratio 16.9, Glucose 133 H, Calcium 9.1 Micro: Microbiology 07/21/24 17:20 Tissue - 4th Toe Gram Stain - Final 07/21/24 17:20 Tissue - 4th Toe Wound Culture - Preliminary Proteus mirabilis Streptococcus agalactiae (B) Staphylococcus epidermidis GPC Poss Enterococcus sp 07/21/24 17:20 Tissue - 4th Toe Anaerobic Culture - Preliminary Checking for anaerobes, further studies to follow. 07/21/24 17:20 Incision/Surgical Site Gram Stain - Final 07/21/24 17:20 Incision/Surgical Site Wound Culture - Preliminary Streptococcus agalactiae (B) Proteus mirabilis Staphylococcus simulans GPC Poss Enterococcus sp 07/21/24 17:20 Incision/Surgical Site Anaerobic Culture - Preliminary Checking for anaerobes, further studies to follow. 07/19/24 20:37 Blood Culture (Wb) - Right Forearm Blood Culture - Final No growth in 5 days. 07/19/24 20:10 Blood Culture (Wb) - Anticubital Left Blood Culture - Final No growth in 5 days. 07/19/24 21:15 Urine, Clean Catch Urine Culture - Final Mixed Gram Positive Organisms 07/19/24 20:10 Wound - Right Foot Gram Stain - Final 07/19/24 20:10 Wound - Right Foot Wound Culture - Final Streptococcus agalactiae (B) Proteus mirabilis Physical Exam Const alert and no apparent distress Extremity Extremity Narrative: right foot wrapped. Assessment & Plan Assessment/Plan (1) Diabetes mellitus with diabetic polyneuropathy: PLAN: Plan Right diabetic foot ulcer with osteomyelitis 4th MTP joint Dr. Hood on 07/21 performed partial 4th ray amputation right foot. I+D deep tissue abscess with wide debridement, incision of bone cortex, tissue rearrangement/skin flap plantar and dorsal right foot. Wound culture on 07/19: group B strep and preoteus mirabilis. Cultures from 07/21 pending. abx w amp/SB and vancomycin. DC with linezolid and augmentin CARLA Improved today. Suspect due to vancomycin, which will be held. Additionally, hold Entresto, furosemide, spironolactone. Will give IVF. Monitor. HTN urgency BP poorly controlled during this admission. On amlodipine 10/d. Will increase metoprolol succinate from 25 to 50 BID. Add scheduled hydralazine. Continue to hold on diuretics (spironolactone and furosemide at this time). Looking back, his BP has been poorly controlled within our system dating back to 2021. Chronic conditions: type 2 diabetes-pt takes U500 130 BID and glargine 50 QHS at home, now on 80 and 35, respectively. Resume home dosing if tolerating diet. class III obesity-complicates care, management, recovery, and prognosis hyperlipidemia-continue atorvastatin VTE prophylaxis: LMWH. Charges/Coding Visit Charges Inpatient E&M: 71033 [facility] Hosp L1
[2024-07-26 08:36] LABS: Bedside Glucose 149 mg/dL (74-106)
[2024-07-26] MEDS: Metoprolol(XL)Succ 50 MG Tablet PO (11:19)
--- NOTE | 2024-07-26 12:14 | TREXTCAR_ITS ---
Diet Diet Order/Speech Therapy: 07/21/24 20:19 Diet: Consistent Carb - Calorie Controlled Type of Dietary Supplement:: Ruben Diet Comments: Ruben w/breakfast and dinner How many daily calories?: 2000 calorie Routine Orders/Code Status Routine Lab Work: CBC (weekly) and BMP (weekly) Code Status: Full Code DC O2, CPAP, BIPAP needs Home O2 Discharge instructions: No Wound(s) Bottom right foot: Wound Type: Neuropathic/Diabetic Foot Ulcer left great toe under.: Wound Type: Abrasion RT FOOT: Wound Type: Surgical Incision right foot: Wound Type: surgical incisions s/p right 4th ray amputation Dressing Change: betadine/Adaptic Therapies Weight Bearing: Non weight bearing Extremity Affected:: Right Lower Physical Therapy: Eval and Treat Occupational Therapy: Eval and Treat Problem/Diagnosis (1) Diabetes mellitus with diabetic polyneuropathy: Status: Acute Code(s): E11.42 - Type 2 diabetes mellitus with diabetic polyneuropathy Plan Right diabetic foot ulcer with osteomyelitis * 4th MTP joint * Dr. oHod on 07/21 performed partial 4th ray amputation right foot. I+D deep tissue abscess with wide debridement, incision of bone cortex, tissue rearrangement/skin flap plantar and dorsal right foot. * Wound culture on 07/19: group B strep and preoteus mirabilis. Cultures from 07/21 pending. * abx w amp/SB and vancomycin. DC with linezolid and augmentin CARLA * Improved today. * Suspect due to vancomycin, which will be held. Additionally, hold Entresto, furosemide, spironolactone. * Will give IVF. Monitor. HTN urgency * BP poorly controlled during this admission. On amlodipine 10/d. Will increase metoprolol succinate from 25 to 50 BID. Add scheduled hydralazine. Continue to hold on diuretics (spironolactone and furosemide at this time). * Looking back, his BP has been poorly controlled within our system dating back to 2021. Chronic conditions: * type 2 diabetes-pt takes U500 130 BID and glargine 50 QHS at home, now on 80 and 35, respectively. Resume home dosing if tolerating diet. * class III obesity-complicates care, management, recovery, and prognosis * hyperlipidemia-continue atorvastatin VTE prophylaxis: LMWH. Allergies/Procedures Done in Hospital Allergies No Known Allergies Allergy (Verified 01/15/25 19:40) Type of Care/Length of Stay Estimated LOS: Convalescent Care Less Than 30 days Type of Care Needed: Skilled Rehab Potential: Good Prognosis: Good Additional Orders/Day of Discharge Day of Discharge: 07/26/24 Dietary and Speech Recommendations Dietitian Recommendations/Changes: Will continue 2000 felicia CHO Controlled diet to manage blood sugars. Continue 120mL Glucerna TID with medpass to provide supplemental energy and protein. Will continue Ruben BID with meals to promote wound healing. Discharge Plan Admission Admit Date/Time: 07/19/24 21:55 Primary Reason for Your Visit: diabetic foot wound with osteomyelitis. Attending Provider: Nimesh Swift Primary Care Provider: KANNAN ELISE Consulting Providers: Fito Flores; Iron Hood; Homer Resendiz; Kali Thorne Discharge Orders/Prescriptions Prescriptions: New linezolid 600 mg tablet 600 mg PO Q12H 10 Days Qty: 20 0RF amoxicillin-pot clavulanate 875-125 mg tablet 1 tab PO BID Qty: 20 0RF acetaminophen 325 mg Tablet 650 mg PO Q6H PRN PRN (Reason: Pain 1-5/10 or Fever) Qty: 30 0RF metoprolol succinate 50 mg Tablet Extended Release 24 Hr 50 mg PO BID Qty: 0 0RF oxycodone 5 mg Tablet 10 mg PO Q4H PRN PRN (Reason: Pain Score 1-10) 3 Days Qty: 12 0RF L.acidoph,saliva-B.bif-S.therm 175 mg Capsule 1 cap PO 4X/DAY Qty: 10 0RF Humulin R U-500 (Conc) Kwikpen 500 unit/mL (3 mL) Insulin Pen 80 unit subcut BIDCM Qty: 0 0RF insulin glargine-yfgn 100 unit/mL (3 mL) Insulin Pen 35 unit subcut QHS Qty: 0 0RF Continued (DME) pen needle, diabetic [BD Ultra-Fine Short Pen Needle] 31 gauge x 5/16 needle MISCELLANEOUS 4X/DAY (DME) FreeStyle Deion 3 Plus Sensor Device MISCELLANEOUS UD potassium chloride 20 mEq tablet extended release 20 meq PO DAILY atorvastatin 80 mg tablet 80 mg PO QHS Discontinued spironolactone 25 mg tablet 12.5 mg PO DAILY metoprolol succinate 25 mg tablet extended release 24 hr 25 mg PO BID sacubitril-valsartan [Entresto] 24-26 mg tablet 1 tab PO BID Humulin R U-500 (Conc) Kwikpen 500 unit/mL (3 mL) insulin pen 130 unit subcut TIDCM insulin glargine-yfgn 100 unit/mL (3 mL) insulin pen 50 unit subcut QHS Mounjaro 7.5 mg/0.5 mL pen injector 7.5 mg subcut QWEEK Referrals / Follow Up: KANNAN ELISE, [employer] SALES REPRESENTATIVE-[employer] [Primary Care Provider] - Disposition Disposition (needs filled in before D/C Order can be placed): Nursing Home Facility
--- NOTE | 2024-07-26 12:22 | CASEMGMT ---
Addendum entered by Deborah Smith 07/26/24 15:13: NOAH received call from [facility] that pt has [facility] through the end of July and precert needs to be obtained through them. DCA advised. NOAH remains available to follow. LEONEL Casper Original Note: Social Work- NOAH submitted LOC. Physician and DCA updated. NOAH remains available to follow. Plan: [facility]; pend LOC LEONEL Casper
[2024-07-26] MEDS: Vancomycin HCl 1,250 MG in 0.9% Normal Saline (250mL Bag) 250 ML 167 MG IV (12:46)
--- NOTE | 2024-07-26 14:08 | WOUNDNOTE ---
Had verified with Dr Hood and wound care orders are for every other day dressing changes to the right foot. dressing was changed by this nurse yesterday.
[2024-07-26] MEDS: hydrALAZINE 50 MG Tablet PO ×2 (14:52→22:27)
[2024-07-26 17:33] LABS: Bedside Glucose 147 mg/dL (74-106)
[2024-07-26] MEDS: Atorvastatin Calcium 80 MG Tablet PO (22:27)
[2024-07-26] MEDS: Insulin Glargine-YFGN 100 UNIT/ML Pen 35 UNIT SC (22:28)
[2024-07-26 23:50] LABS: Bedside Glucose 140 mg/dL (74-106)
[2024-07-27] VITALS (13 sets, daily range): BP systolic 143–196; BP diastolic 64–98; PULSE 70–91; RESP 16–18; TEMP 36.3–37.3; O2SAT 95–98
[2024-07-27] MEDS: Metoprolol(XL)Succ 50 MG Tablet PO ×3 (00:06→21:06)
[2024-07-27 02:33] LABS: Bedside Glucose 95 mg/dL (74-106)
[2024-07-27] MEDS: Ampicillin/Sulbactam 3 GM in 0.9% Normal Saline (100mL MB+) 100 ML IV (05:41)
[2024-07-27] MEDS: hydrALAZINE 50 MG Tablet PO ×3 (05:42→21:06)
[2024-07-27] MEDS: oxyCODONE 5 MG Tablet 10 MG PO ×4 (05:48→21:06)
[2024-07-27 06:40] LABS: Bedside Glucose 145 mg/dL (74-106)
[2024-07-27 07:06] LABS: Anion Gap 5 (5-15); BUN 44 mg/dL (7-18); BUN/Creat Ratio 17.1 RATIO (10-20); Calcium,Total 8.6 mg/dL (8.5-10.1); Chloride 107 mmol/L (98-107); Creatinine, Serum 2.57 mg/dL (0.70-1.30); EST Glomerular Filtration Rate 30 mL/min (>60); Est Glom Filt Rate - Afr Amer 36 mL/min (>60); Estimated Creatinine Clearance 60.97 ml/min; Glucose 136 mg/dL (74-106); Potassium 4.5 mmol/L (3.5-5.1); Sodium Level 139 mmol/L (136-145)
[2024-07-27] MEDS: Potassium Chloride Oral Tablet 20 MEQ PO (08:06)
[2024-07-27] MEDS: amLODIPine 10 MG Tablet PO (08:07)
[2024-07-27] MEDS: Ascorbic Acid 500 MG Tablet 1000 MG PO ×2 (08:07→16:28)
[2024-07-27] MEDS: Lactobacillis Acidophilus 1 CAP PO ×4 (08:07→21:06)
[2024-07-27] MEDS: Enoxaparin 40 MG/0.4 ML Syringe SC ×2 (08:07→21:05)
[2024-07-27] MEDS: Cholecalciferol (Vit D3) 125 MCG CAPSULE (5,000 UNITS) PO (08:07)
[2024-07-27] MEDS: Insulin U-500 UNITS/ML PEN 80 UNITS SC ×2 (08:08→16:29)
--- NOTE | 2024-07-27 08:39 | PN.HOSP_ITS ---
Reason for Visit Reason for Visit: Diagnoses Elevated white blood cell count, unspecified (07/19/24) Type 2 diabetes mellitus with diabetic neuropathy, unspecified (07/19/24) Type 2 diabetes mellitus with diabetic polyneuropathy (07/19/24) Type 2 diabetes mellitus with foot ulcer (07/19/24) Type 2 diabetes mellitus with unspecified complications (07/19/24) Morbid (severe) obesity due to excess calories (07/19/24) Essential (primary) hypertension (07/19/24) Cellulitis of right lower limb (07/19/24) Non-pressure chronic ulcer of other part of right foot with fat layer exposed (07/19/24) Non-pressure chronic ulcer of other part of right foot with necrosis of bone (07/19/24) Osteomyelitis, unspecified (07/19/24) Body mass index [BMI] 45.0-49.9, adult (07/19/24) Tobacco use (07/19/24) Personal history of other diseases of the musculoskeletal system and connective tissue (07/19/24) Subjective Subjective Feels well. Pain in foot well tolerated. Objective Data Objective Data Vital Signs: Vital Signs Temp Pulse Resp BP Pulse Ox O2 Del Method O2 Flow Rate 37.1 C 88 18 148/64 H 98 Room Air 2 07/27/24 04:17 07/27/24 08:07 07/27/24 04:17 07/27/24 05:42 07/27/24 04:17 07/27/24 04:17 07/21/24 18:46 Oxygen Flow Rate (L/min) 2 Oxygen Delivery Method Room Air Weight: 162.2 kg Body Mass Index (BMI) 47.4 Intake & Output: Intake and Output for Last 24 Hours 07/25/24 07/26/24 07/27/24 23:59 23:59 23:59 Intake Total 1711.75 / 1711.75 1211 / 1211 712 / 712 Output Total 4100 / 4100 3450 / 3450 1100 / 1100 Balance -2388.25 / -2388.25 -2239 / -2239 -388 / -388 Lab / Micro Data 07/25/24 06:59 07/27/24 05:54 Labs: Laboratory Results - last 24 hr 07/26/24 16:50: POC Glucose 147 H 07/26/24 22:19: POC Glucose 140 H 07/27/24 02:15: POC Glucose 95 07/27/24 04:18: POC Glucose 145 H 07/27/24 05:54: Sodium 139, Potassium 4.5, Chloride 107, Carbon Dioxide 27.0, Anion Gap 5, BUN 44 H, Creatinine 2.57 H, Estim Creat Clear Calc 60.97, Est GFR (MDRD) Af Amer 36 L, Est GFR (MDRD) Non-Af 30 L, BUN/Creatinine Ratio 17.1, G lucose 136 H, Calcium 8.6 Micro: Microbiology 07/21/24 17:20 Tissue - 4th Toe Gram Stain - Final 07/21/24 17:20 Tissue - 4th Toe Wound Culture - Final Proteus mirabilis Streptococcus agalactiae (B) Staphylococcus epidermidis Enterococcus faecalis 07/21/24 17:20 Tissue - 4th Toe Anaerobic Culture - Final Anaerobic cocci 07/21/24 17:20 Incision/Surgical Site Gram Stain - Final 07/21/24 17:20 Incision/Surgical Site Wound Culture - Final Streptococcus agalactiae (B) Proteus mirabilis Staphylococcus simulans Enterococcus faecalis 07/21/24 17:20 Incision/Surgical Site Anaerobic Culture - Final Anaerobic cocci Prevotella bivia 07/19/24 20:37 Blood Culture (Wb) - Right Forearm Blood Culture - Final No growth in 5 days. 07/19/24 20:10 Blood Culture (Wb) - Anticubital Left Blood Culture - Final No growth in 5 days. 07/19/24 21:15 Urine, Clean Catch Urine Culture - Final Mixed Gram Positive Organisms 07/19/24 20:10 Wound - Right Foot Gram Stain - Final 07/19/24 20:10 Wound - Right Foot Wound Culture - Final Streptococcus agalactiae (B) Proteus mirabilis Physical Exam Const alert and no apparent distress HEENT head/scalp atraumatic and moist oral mucous membranes Resp normal respiratory effort, no retractions and no use of accessory muscles Extremity Extremity Narrative: right foot wrapped. Neuro moves all extremities Sensorium / Orientation: awake and alert Assessment & Plan Assessment/Plan (1) Diabetes mellitus with diabetic polyneuropathy: PLAN: Plan Right diabetic foot ulcer with osteomyelitis * 4th MTP joint * Dr. Hood on 07/21 performed partial 4th ray amputation right foot. I+D deep tissue abscess with wide debridement, incision of bone cortex, tissue rearrangement/skin flap plantar and dorsal right foot. * Wound culture on 07/19: group B strep and proteus mirabilis. Cultures from 07/21 pending. * abx w amp/SB and vancomycin. Given recurrent CARLA, will dc vanc and start linezolid. DC with linezolid and augmentin CARLA * Worse today. DC vancomycin * Suspect due to vancomycin, which will be held. Additionally, hold Entresto, furosemide, spironolactone. * Will give IVF. Monitor. HTN urgency * Improved, but BP has been poorly controlled during this admission. On amlodipine 10/d. Will increase metoprolol succinate from 25 to 50 BID. Add scheduled hydralazine. Continue to hold on diuretics (spironolactone and furosemide at this time). * Looking back, his BP has been poorly controlled within our system dating back to 2021. Chronic conditions: * type 2 diabetes-pt takes U500 130 BID and glargine 50 QHS at home, now on 80 and 35, respectively. Resume home dosing if tolerating diet. * class III obesity-complicates care, management, recovery, and prognosis * hyperlipidemia-continue atorvastatin VTE prophylaxis: LMWH. Charges/Coding Visit Charges Inpatient E&M: 82438 Subs Hosp L1
[2024-07-27] MEDS: 0.9% Normal Saline (1000mL) 1,000 ML 150 ML IV (08:54)
[2024-07-27] MEDS: Linezolid 600 MG Tablet PO ×2 (10:19→21:05)
--- NOTE | 2024-07-27 10:44 | CASEMGMT ---
Social Work SW spoke with Malika at [facility] with states that pt payor has been look up in the [employer] system and payor is listed as [employer]. SW called hospital registration as pt is listed as Medicaid. Registration looked pt up in [employer] system and confirmed pt is active with [employer]. Message sent to [facility] and informed of correct insurance and requested precert be started at this time. LEONEL Ayers
[2024-07-27 11:37] LABS: Bedside Glucose 179 mg/dL (74-106)
[2024-07-27 16:10] LABS: Bedside Glucose 157 mg/dL (74-106)
[2024-07-27] MEDS: cloNIDine HCl 0.2 MG Tablet PO (16:28)
[2024-07-27] MEDS: Amox/Clavulanate 875 MG Tablet PO (21:05)
[2024-07-27] MEDS: Atorvastatin Calcium 80 MG Tablet PO (21:05)
[2024-07-27 21:41] LABS: Bedside Glucose 139 mg/dL (74-106)
[2024-07-28] VITALS (12 sets, daily range): BP systolic 134–190; BP diastolic 61–100; PULSE 73–89; RESP 16–18; TEMP 36.3–36.8; O2SAT 92–98
[2024-07-28] MEDS: oxyCODONE 5 MG Tablet 10 MG PO ×4 (03:27→22:30)
[2024-07-28 03:51] LABS: Bedside Glucose 86 mg/dL (74-106)
[2024-07-28] MEDS: hydrALAZINE 50 MG Tablet PO (06:52)
[2024-07-28] MEDS: cloNIDine HCl 0.2 MG Tablet PO (06:58)
--- NOTE | 2024-07-28 07:21 | PN.HOSP_ITS ---
Reason for Visit Reason for Visit: Diagnoses Elevated white blood cell count, unspecified (07/19/24) Type 2 diabetes mellitus with diabetic neuropathy, unspecified (07/19/24) Type 2 diabetes mellitus with diabetic polyneuropathy (07/19/24) Type 2 diabetes mellitus with foot ulcer (07/19/24) Type 2 diabetes mellitus with unspecified complications (07/19/24) Morbid (severe) obesity due to excess calories (07/19/24) Essential (primary) hypertension (07/19/24) Cellulitis of right lower limb (07/19/24) Non-pressure chronic ulcer of other part of right foot with fat layer exposed (07/19/24) Non-pressure chronic ulcer of other part of right foot with necrosis of bone (07/19/24) Osteomyelitis, unspecified (07/19/24) Body mass index [BMI] 45.0-49.9, adult (07/19/24) Tobacco use (07/19/24) Personal history of other diseases of the musculoskeletal system and connective tissue (07/19/24) Subjective Subjective Feeling ok. Objective Data Objective Data Vital Signs: Vital Signs Temp Pulse Resp BP Pulse Ox O2 Del Method O2 Flow Rate 36.8 C 84 18 184/100 H 96 Room Air 2 07/28/24 03:21 07/28/24 06:52 07/28/24 03:21 07/28/24 06:52 07/28/24 06:50 07/28/24 03:21 07/21/24 18:46 Oxygen Flow Rate (L/min) 2 Oxygen Delivery Method Room Air Weight: 162.2 kg Body Mass Index (BMI) 47.4 Intake & Output: Intake and Output for Last 24 Hours 07/26/24 07/27/24 07/28/24 23:59 23:59 23:59 Intake Total 1211 / 1211 2317 / 2317 400 / 400 Output Total 3450 / 3450 1900 / 1900 750 / 750 Balance -2239 / -2239 417 / 417 -350 / -350 Lab / Micro Data 07/25/24 06:59 07/28/24 06:45 Labs: Laboratory Results - last 24 hr 07/27/24 11:07: POC Glucose 179 H 07/27/24 15:51: POC Glucose 157 H 07/27/24 21:04: POC Glucose 139 H 07/28/24 03:19: POC Glucose 86 Micro: Microbiology 07/21/24 17:20 Tissue - 4th Toe Gram Stain - Final 07/21/24 17:20 Tissue - 4th Toe Wound Culture - Final Proteus mirabilis Streptococcus agalactiae (B) Staphylococcus epidermidis Enterococcus faecalis 07/21/24 17:20 Tissue - 4th Toe Anaerobic Culture - Final Anaerobic cocci 07/21/24 17:20 Incision/Surgical Site Gram Stain - Final 07/21/24 17:20 Incision/Surgical Site Wound Culture - Final Streptococcus agalactiae (B) Proteus mirabilis Staphylococcus simulans Enterococcus faecalis 07/21/24 17:20 Incision/Surgical Site Anaerobic Culture - Final Anaerobic cocci Prevotella bivia 07/19/24 20:37 Blood Culture (Wb) - Right Forearm Blood Culture - Final No growth in 5 days. 07/19/24 20:10 Blood Culture (Wb) - Anticubital Left Blood Culture - Final No growth in 5 days. 07/19/24 21:15 Urine, Clean Catch Urine Culture - Final Mixed Gram Positive Organisms 07/19/24 20:10 Wound - Right Foot Gram Stain - Final 07/19/24 20:10 Wound - Right Foot Wound Culture - Final Streptococcus agalactiae (B) Proteus mirabilis Physical Exam Const alert and no apparent distress HEENT head/scalp atraumatic and moist oral mucous membranes Resp normal respiratory effort, no retractions, no use of accessory muscles and clear to auscultation bilaterally Cardio regular rate, regular rhythm, S1 normal heart sound and S2 normal heart sound Extremity Extremity Narrative: right foot wrapped--did not remove. Neuro Sensorium / Orientation: awake and alert Assessment & Plan Assessment/Plan (1) Diabetes mellitus with diabetic polyneuropathy: PLAN: Plan Right diabetic foot ulcer with osteomyelitis * 4th MTP joint * Dr. Hood on 07/21 performed partial 4th ray amputation right foot. I+D deep tissue abscess with wide debridement, incision of bone cortex, tissue rearrangement/skin flap plantar and dorsal right foot. * Wound culture on 07/19: group B strep and proteus mirabilis. Cultures from 07/21 pending. * abx w amp/SB and vancomycin. Given recurrent CARLA, will dc vanc and start linezolid. DC with linezolid and augmentin CARLA * Worse today. DC vancomycin * Suspect due to vancomycin, which will be held. Additionally, hold Entresto, furosemide, spironolactone. * I expect the kidney function to level off. HTN urgency * Improved, but BP has been poorly controlled during this admission. On amlodipine 10/d. Will increase metoprolol succinate from 25 to 50 BID. Add scheduled hydralazine. Continue to hold on diuretics (spironolactone and furosemide at this time). * Looking back, his BP has been poorly controlled within our system dating back to 2021. Chronic conditions: * type 2 diabetes-pt takes U500 130 BID and glargine 50 QHS at home, now on 80 and 35, respectively. Resume home dosing if tolerating diet. * class III obesity-complicates care, management, recovery, and prognosis * hyperlipidemia-continue atorvastatin VTE prophylaxis: LMWH. Charges/Coding Visit Charges Inpatient E&M: 10520 Subs Hosp L2
[2024-07-28 07:58] LABS: Anion Gap 6 (5-15); BUN 42 mg/dL (7-18); Calcium,Total 8.5 mg/dL (8.5-10.1); Chloride 109 mmol/L (98-107); Creatinine, Serum 2.63 mg/dL (0.70-1.30); EST Glomerular Filtration Rate 29 mL/min (>60); Est Glom Filt Rate - Afr Amer 35 mL/min (>60); Estimated Creatinine Clearance 59.58 ml/min; Glucose 131 mg/dL (74-106); Potassium 4.7 mmol/L (3.5-5.1); Sodium Level 139 mmol/L (136-145)
[2024-07-28] MEDS: Amox/Clavulanate 875 MG Tablet PO ×2 (08:12→21:58)
[2024-07-28] MEDS: Linezolid 600 MG Tablet PO ×2 (08:12→21:56)
[2024-07-28] MEDS: Cholecalciferol (Vit D3) 125 MCG CAPSULE (5,000 UNITS) PO (08:13)
[2024-07-28] MEDS: Metoprolol(XL)Succ 50 MG Tablet PO ×2 (08:13→21:56)
[2024-07-28] MEDS: amLODIPine 10 MG Tablet PO (08:14)
[2024-07-28] MEDS: Potassium Chloride Oral Tablet 20 MEQ PO (08:15)
[2024-07-28] MEDS: Lactobacillis Acidophilus 1 CAP PO ×4 (08:15→21:58)
[2024-07-28] MEDS: Ascorbic Acid 500 MG Tablet 1000 MG PO ×2 (08:15→16:16)
[2024-07-28] MEDS: Enoxaparin 40 MG/0.4 ML Syringe SC ×2 (08:16→21:58)
[2024-07-28] MEDS: Insulin U-500 UNITS/ML PEN 80 UNITS SC ×2 (08:18→16:16)
--- NOTE | 2024-07-28 11:09 | CASEMGMT ---
CC asked to call unit if auth is received over the weekend. Phone/fax obtained. Green sheet and transport form placed on chart. Jasmyn Tanner DC Planning Asst.
[2024-07-28] MEDS: hydrALAZINE 50 MG Tablet 100 MG PO ×2 (11:21→21:57)
--- NOTE | 2024-07-28 11:21 | CASEMGMT ---
Social Work SW met with pt to discuss discharge plan. Pt states that he still feels like he needs to go to [facility] at discharge, but if insurance does not approve, he will try to manage at home. Pt has a wound dressing that needs changed every other day and pt states he does not think he can do this and he is uncertain if his sister will be willing to do it and his sister is out of town on vacation at this time. Pt states he has obtained his knee scooter, BSC, and walker from his previous home and will have access to them when he returns home. Pt does state if he returns home he will need home health care. Pt has one step into home. Pt to call his sister to find out how long she will be out of town and if she can assist pt as needed. Pt to also call his nephew to see if he can assist pt once home. SW will await determination from insurance. Pt preference is short term SNF at [facility]. Pt is not medically ready for dc today. Green sheet placed on chart in the event pt is ready for dc over the weekend and precert is obtained. Plan: [facility], pending precert LEONEL Ayers
[2024-07-28 11:54] LABS: Bedside Glucose 199 mg/dL (74-106)
[2024-07-28 15:12] LABS: Bedside Glucose 115 mg/dL (74-106)
[2024-07-28 16:42] LABS: Bedside Glucose 203 mg/dL (74-106)
[2024-07-28] MEDS: Atorvastatin Calcium 80 MG Tablet PO (21:58)
[2024-07-28] MEDS: Insulin Glargine-YFGN 100 UNIT/ML Pen 35 UNIT SC (22:00)
[2024-07-28 22:29] LABS: Bedside Glucose 169 mg/dL (74-106)
[2024-07-29 05:17] VITALS: BP 155/69; PULSE 78
[2024-07-29] MEDS: hydrALAZINE 50 MG Tablet 100 MG PO ×2 (05:17→14:37)
[2024-07-29] MEDS: oxyCODONE 5 MG Tablet 10 MG PO ×2 (05:18→09:38)
[2024-07-29 05:19] VITALS: BP 155/69; PULSE 78; RESP 18; TEMP 36.6; O2SAT 95
[2024-07-29] MEDS: Glucerna Shake 120 ML LIQUID PO (08:54)
[2024-07-29] MEDS: Mag Hydrox/Al Hydrox/Simeth 30 ML UDC PO (08:54)
[2024-07-29] MEDS: Potassium Chloride Oral Tablet 20 MEQ PO (08:55)
[2024-07-29] MEDS: Ascorbic Acid 500 MG Tablet 1000 MG PO (08:55)
[2024-07-29] MEDS: Insulin U-500 UNITS/ML PEN 80 UNITS SC (08:56)
[2024-07-29 09:00] VITALS: BP 156/106; PULSE 84; RESP 17; TEMP 36.6; O2SAT 97
[2024-07-29 09:08] LABS: Bedside Glucose 158 mg/dL (74-106)
--- NOTE | 2024-07-29 09:11 | PN.HOSP_ITS ---
Reason for Visit Reason for Visit: Diagnoses Elevated white blood cell count, unspecified (07/19/24) Type 2 diabetes mellitus with diabetic neuropathy, unspecified (07/19/24) Type 2 diabetes mellitus with diabetic polyneuropathy (07/19/24) Type 2 diabetes mellitus with foot ulcer (07/19/24) Type 2 diabetes mellitus with unspecified complications (07/19/24) Morbid (severe) obesity due to excess calories (07/19/24) Essential (primary) hypertension (07/19/24) Cellulitis of right lower limb (07/19/24) Non-pressure chronic ulcer of other part of right foot with fat layer exposed (07/19/24) Non-pressure chronic ulcer of other part of right foot with necrosis of bone (07/19/24) Osteomyelitis, unspecified (07/19/24) Body mass index [BMI] 45.0-49.9, adult (07/19/24) Tobacco use (07/19/24) Personal history of other diseases of the musculoskeletal system and connective tissue (07/19/24) Subjective Subjective states that he now wants to go home. His sister was able to bring his knee scooter and walker. He would like home health care. Objective Data Objective Data Vital Signs: Vital Signs Temp Pulse Resp BP Pulse Ox O2 Del Method O2 Flow Rate 36.6 C 78 18 155/69 H 95 Room Air 2 07/29/24 05:19 07/29/24 05:19 07/29/24 05:19 07/29/24 05:19 07/29/24 05:19 07/29/24 09:03 07/21/24 18:46 Oxygen Flow Rate (L/min) 2 Oxygen Delivery Method Room Air Weight: 162.2 kg Body Mass Index (BMI) 47.4 Intake & Output: Intake and Output for Last 24 Hours 07/27/24 07/28/24 07/29/24 23:59 23:59 23:59 Intake Total 2317 / 2317 2400 / 2400 Output Total 1900 / 1900 2350 / 2350 1000 / 1000 Balance 417 / 417 50 / 50 -1000 / -1000 Lab / Micro Data 07/25/24 06:59 07/29/24 06:34 Labs: Laboratory Results - last 24 hr 07/28/24 06:48: POC Glucose 115 H 07/28/24 11:11: POC Glucose 199 H 07/28/24 16:12: POC Glucose 203 H 07/28/24 22:00: POC Glucose 169 H 07/29/24 08:34: POC Glucose 158 H Micro: Microbiology 07/21/24 17:20 Tissue - 4th Toe Gram Stain - Final 07/21/24 17:20 Tissue - 4th Toe Wound Culture - Final Proteus mirabilis Streptococcus agalactiae (B) Staphylococcus epidermidis Enterococcus faecalis 07/21/24 17:20 Tissue - 4th Toe Anaerobic Culture - Final Anaerobic cocci 07/21/24 17:20 Incision/Surgical Site Gram Stain - Final 07/21/24 17:20 Incision/Surgical Site Wound Culture - Final Streptococcus agalactiae (B) Proteus mirabilis Staphylococcus simulans Enterococcus faecalis 07/21/24 17:20 Incision/Surgical Site Anaerobic Culture - Final Anaerobic cocci Prevotella bivia 07/19/24 20:37 Blood Culture (Wb) - Right Forearm Blood Culture - Final No growth in 5 days. 07/19/24 20:10 Blood Culture (Wb) - Anticubital Left Blood Culture - Final No growth in 5 days. 07/19/24 21:15 Urine, Clean Catch Urine Culture - Final Mixed Gram Positive Organisms 07/19/24 20:10 Wound - Right Foot Gram Stain - Final 07/19/24 20:10 Wound - Right Foot Wound Culture - Final Streptococcus agalactiae (B) Proteus mirabilis Physical Exam Const alert and no apparent distress HEENT head/scalp atraumatic and moist oral mucous membranes Resp normal respiratory effort, no retractions and no use of accessory muscles Cardio regular rate, regular rhythm, S1 normal heart sound and S2 normal heart sound Neuro Sensorium / Orientation: awake and alert Assessment & Plan Assessment/Plan (1) Diabetes mellitus with diabetic polyneuropathy: PLAN: Plan Right diabetic foot ulcer with osteomyelitis * 4th MTP joint * Dr. Hood on 07/21 performed partial 4th ray amputation right foot. I+D deep tissue abscess with wide debridement, incision of bone cortex, tissue rearrangement/skin flap plantar and dorsal right foot. * Wound culture on 07/19: group B strep and proteus mirabilis. Cultures from 07/21 pending. * abx w amp/SB and vancomycin. Given recurrent CARLA, will dc vanc and start linezolid. DC with linezolid and augmentin CARLA * Improved. * Suspect due to vancomycin, which will be held. Additionally, hold Entresto, furosemide, spironolactone. * I expect the kidney function to level off. HTN urgency * Improved, but BP has been poorly controlled during this admission. On amlodipine 10/d. Will increase metoprolol succinate from 25 to 50 BID. Add scheduled hydralazine. Continue to hold on diuretics (spironolactone and furosemide at this time). * Looking back, his BP has been poorly controlled within our system dating back to 2021. Chronic conditions: * type 2 diabetes-pt takes U500 130 BID and glargine 50 QHS at home, now on 80 and 35, respectively. Resume home dosing if tolerating diet. * class III obesity-complicates care, management, recovery, and prognosis * hyperlipidemia-continue atorvastatin VTE prophylaxis: LMWH. Disposition is now to discharge the patient home with [facility].
[2024-07-29 09:36] LABS: Anion Gap 5 (5-15); BUN 42 mg/dL (7-18); BUN/Creat Ratio 16.9 RATIO (10-20); Calcium,Total 9.1 mg/dL (8.5-10.1); Chloride 108 mmol/L (98-107); Creatinine, Serum 2.48 mg/dL (0.70-1.30); EST Glomerular Filtration Rate 31 mL/min (>60); Est Glom Filt Rate - Afr Amer 37 mL/min (>60); Estimated Creatinine Clearance 63.18 ml/min; Glucose 125 mg/dL (74-106); Potassium 4.6 mmol/L (3.5-5.1); Sodium Level 138 mmol/L (136-145)
[2024-07-29] MEDS: Acetaminophen 325 MG Tablet 650 MG PO (09:37)
[2024-07-29 10:34] VITALS: PULSE 84
[2024-07-29] MEDS: Cholecalciferol (Vit D3) 125 MCG CAPSULE (5,000 UNITS) PO (10:34)
[2024-07-29] MEDS: Metoprolol(XL)Succ 50 MG Tablet PO (10:34)
[2024-07-29] MEDS: Enoxaparin 40 MG/0.4 ML Syringe SC (10:34)
[2024-07-29] MEDS: Lactobacillis Acidophilus 1 CAP PO ×2 (10:34→14:38)
[2024-07-29] MEDS: Amox/Clavulanate 875 MG Tablet PO (10:34)
[2024-07-29] MEDS: amLODIPine 10 MG Tablet PO (10:35)
[2024-07-29] MEDS: Linezolid 600 MG Tablet PO (10:36)
--- NOTE | 2024-07-29 12:47 | DS.PCM_ITS ---
Providers Date of Admission: 07/19/24 Primary Care Physician: KANNAN ELISE, ELVA Consultations 07/19/24 22:19 Consult: Onc/Wound/office administrative assistant Routine Comment: 07/20/24 05:22 Consult: Podiatry Routine Consulting Provider: Iron Hood Reason for Consult: Right DFU with associated Cellulitis and suspected Tunneling Abscess. EMERGENT Consult: No Notified: Yes Date Notified: 07/20/24 Time Notified: 07:43 Method of Notification: Text 07/20/24 16:32 Consult: Infectious Disease Routine Consulting Provider: Homer Resendiz Reason for Consult: antibiotic recommendations, rt DFU EMERGENT Consult: No Notified: Yes Date Notified: 07/20/24 Time Notified: 16:32 Method of Notification: Text Reason For Visit: RIGHT DFU Diagnosis Discharge Diagnosis (1) Diabetes mellitus with diabetic polyneuropathy: Status: Acute Code(s): E11.42 - Type 2 diabetes mellitus with diabetic polyneuropathy Plan Right diabetic foot ulcer with osteomyelitis * 4th MTP joint * Dr. Hood on 07/21 performed partial 4th ray amputation right foot. I+D deep tissue abscess with wide debridement, incision of bone cortex, tissue rearrangement/skin flap plantar and dorsal right foot. * Wound culture on 07/19: group B strep and proteus mirabilis. Cultures from 07/21 pending. * abx w amp/SB and vancomycin. Given recurrent CARLA, will dc vanc and start linezolid. DC with linezolid and augmentin CARLA * Improved. * Suspect due to vancomycin, which will be held. Additionally, hold Entresto, furosemide, spironolactone. * I expect the kidney function to level off. HTN urgency * Improved, but BP has been poorly controlled during this admission. On amlodipine 10/d. Will increase metoprolol succinate from 25 to 50 BID. Add scheduled hydralazine. Continue to hold on diuretics (spironolactone and furosemide at this time). * Looking back, his BP has been poorly controlled within our system dating back to 2021. Chronic conditions: * type 2 diabetes-pt takes U500 130 BID and glargine 50 QHS at home, now on 80 and 35, respectively. Resume home dosing if tolerating diet. * class III obesity-complicates care, management, recovery, and prognosis * hyperlipidemia-continue atorvastatin VTE prophylaxis: LMWH. Disposition is now to discharge the patient home with [facility]. Medications at Discharge Home Medications atorvastatin 80 mg tablet 80 mg PO QHS hld 07/19/24 blood-glucose sensor (FreeStyle Deion 3 Plus Sensor device) 07/19/24 pen needle, diabetic 31 gauge x 5/16 (BD Ultra-Fine Short Pen Needle) 07/19/24 potassium chloride 20 mEq tablet,extended release 20 meq PO DAILY 07/19/24 amoxicillin 875 mg-potassium clavulanate 125 mg tablet 1 tab PO BID #20 tabs 07/25/24 linezolid 600 mg tablet 600 mg PO Q12H 10 days #20 tabs 07/25/24 L.acidophil,salivari-Bifido bifidum-Strep thermoph 175 mg capsule 1 cap PO 4X/DAY #10 caps 07/26/24 acetaminophen 325 mg tablet 650 mg (2 x 325 mg) PO Q6H PRN PRN Pain 1-11/11 or Fever #30 tabs 07/26/24 insulin glargine-yfgn 100 unit/mL (3 mL) subcutaneous pen 35 unit (0.35 mL) subcut QHS #0 mL 07/26/24 insulin regular hum U-500 conc 500 unit/mL(3 mL) subcut pen (Humulin R U-500 (Conc) Insulin Kwikpen) 80 unit (0.16 mL) subcut BIDCM #0 mL 07/26/24 hydralazine 50 mg tablet 100 mg (2 x 50 mg) PO TID #90 tabs 07/29/24 metoprolol succinate 50 mg tablet,extended release 24 hr 50 mg PO BID #60 tabs 07/29/24 oxycodone 10 mg tablet 10 mg PO Q6H PRN pain 3 days #12 tabs 07/29/24 Hospital Course Operations - (1. Partial fourth ray amputation right foot 2. I&D deep tissue abscess with wide debridement right foot 3. Incision of bone cortex right foot 4. Tissue rearrangement/skin flap plantar right foot 5. Tissue rearrangement/skin flap dorsal right foot 6. Sharp Excisional Debridement of ulcerati) Summary of Care Provided Minutes Spent on Discharge: 32 Weight / BMI Weight Weight: 162.2 kg Body Mass Index (BMI) 47.4 ABG / Lab / Microbiology Data 07/25/24 06:59 07/29/24 06:34 Laboratory: Laboratory Results - last 24 hr 07/28/24 06:48: POC Glucose 115 H 07/28/24 16:12: POC Glucose 203 H 07/28/24 22:00: POC Glucose 169 H 07/29/24 06:34: Sodium 138, Potassium 4.6, Chloride 108 H, Carbon Dioxide 25.0, Anion Gap 5, BUN 42 H, Creatinine 2.48 H, Estim Creat Clear Calc 63.18, Est GFR (MDRD) Af Amer 37 L, Est GFR (MDRD) Non-Af 31 L, BUN/Creatinine Ratio 16.9, G lucose 125 H, Calcium 9.1 07/29/24 08:34: POC Glucose 158 H Microbiology: Microbiology 07/21/24 17:20 Tissue - 4th Toe Gram Stain - Final 07/21/24 17:20 Tissue - 4th Toe Wound Culture - Final Proteus mirabilis Streptococcus agalactiae (B) Staphylococcus epidermidis Enterococcus faecalis 07/21/24 17:20 Tissue - 4th Toe Anaerobic Culture - Final Anaerobic cocci 07/21/24 17:20 Incision/Surgical Site Gram Stain - Final 07/21/24 17:20 Incision/Surgical Site Wound Culture - Final Streptococcus agalactiae (B) Proteus mirabilis Staphylococcus simulans Enterococcus faecalis 07/21/24 17:20 Incision/Surgical Site Anaerobic Culture - Final Anaerobic cocci Prevotella bivia 07/19/24 20:37 Blood Culture (Wb) - Right Forearm Blood Culture - Final No growth in 5 days. 07/19/24 20:10 Blood Culture (Wb) - Anticubital Left Blood Culture - Final No growth in 5 days. 07/19/24 21:15 Urine, Clean Catch Urine Culture - Final Mixed Gram Positive Organisms 07/19/24 20:10 Wound - Right Foot Gram Stain - Final 07/19/24 20:10 Wound - Right Foot Wound Culture - Final Streptococcus agalactiae (B) Proteus mirabilis D/C Instructions Discharge Diet: 2000 Calorie Control Diet DC O2, CPAP, BIPAP Needs Home O2 Discharge instructions: No Meaningful Use Info Meaningful Use Meaningful Use Diagnoses (Choose all that apply): None applicable Ischemic Stroke Statin Dosing Therapy Reference: STATIN DOSE THERAPY REFERENCE: * Patients > 75 years receive moderate or high dose statin therapy. * Patients 75 years or YOUNGER should receive HIGH intensity statin dose unless contraindicated. You will be required to document reason for non-treatment if statin daily dose does not meet guidelines. HIGH DOSE STATIN THERAPY DAILY Atorvastatin > than or = to 40 mg Rosuvastatin > than or = to 20 mg Amlodipine + Atorvastatin > than or = to 2.5/40 mg Ezetimibe + Simvastatin 10/80 mg Simvastatin 80mg Discharge Plan Admission Admit Date/Time: 07/19/24 21:55 Primary Reason for Your Visit: diabetic foot wound with osteomyelitis. Attending Provider: Nimesh Swift Primary Care Provider: KANNAN ELISE Consulting Providers: Fito Flores; Iron Hood; Homer Resendiz; Kali Thorne Discharge Orders/Prescriptions Prescriptions: New linezolid 600 mg tablet 600 mg PO Q12H 10 Days Qty: 20 0RF amoxicillin-pot clavulanate 875-125 mg tablet 1 tab PO BID Qty: 20 0RF acetaminophen 325 mg Tablet 650 mg PO Q6H PRN PRN (Reason: Pain 1-5/10 or Fever) Qty: 30 0RF L.acidoph,saliva-B.bif-S.therm 175 mg Capsule 1 cap PO 4X/DAY Qty: 10 0RF Humulin R U-500 (Conc) Kwikpen 500 unit/mL (3 mL) Insulin Pen 80 unit subcut BIDCM Qty: 0 0RF insulin glargine-yfgn 100 unit/mL (3 mL) Insulin Pen 35 unit subcut QHS Qty: 0 0RF oxycodone 10 mg tablet 10 mg PO Q6H PRN (Reason: pain) 3 Days Qty: 12 0RF hydralazine 50 mg Tablet 100 mg PO TID Qty: 90 0RF metoprolol succinate 50 mg tablet extended release 24 hr 50 mg PO BID Qty: 60 0RF Continued (DME) pen needle, diabetic [BD Ultra-Fine Short Pen Needle] 31 gauge x 5/16 needle MISCELLANEOUS 4X/DAY (DME) FreeStyle Deion 3 Plus Sensor Device MISCELLANEOUS UD potassium chloride 20 mEq tablet extended release 20 meq PO DAILY atorvastatin 80 mg tablet 80 mg PO QHS Discontinued spironolactone 25 mg tablet 12.5 mg PO DAILY metoprolol succinate 25 mg tablet extended release 24 hr 25 mg PO BID sacubitril-valsartan [Entresto] 24-26 mg tablet 1 tab PO BID Humulin R U-500 (Conc) Kwikpen 500 unit/mL (3 mL) insulin pen 130 unit subcut TIDCM insulin glargine-yfgn 100 unit/mL (3 mL) insulin pen 50 unit subcut QHS Mounjaro 7.5 mg/0.5 mL pen injector 7.5 mg subcut QWEEK Referrals / Follow Up: KANNAN ELISE, DRIVER OPERATOR-C [Primary Care Provider] - Disposition Disposition (needs filled in before D/C Order can be placed): Home Health Service Charges/Coding Visit Charges Inpatient E&M: 22016 Disch Hosp >30min
--- NOTE | 2024-07-29 12:55 | CASEMGMT ---
Addendum entered by Noa Yepez 07/29/24 13:15: Discussed pt's discharge plan and need of dressing change teaching w/pt, with RNTwyla. Original Note: ISSAC ESCOBAR NOTE: Per Dr Swift, pt is now wanting to discharge home and he will be discharging today. He states pt will discharge w/Rx for linezolid, will need a glucometer, and wants HHC. RN CM to room. Pt sitting on edge of bed. Introduced self and role. Pt verifies he is now wanting to discharge home. He states his sister has picked up all of his needed DME from his prior home in [place] and has taken it to his new home in [place], including knee scooter, BSC, crutches, and other items. He verifies he has all insulin needed. His sister was unable to find his glucometer. He was made aware a script can be provided for him and if his insurance will not cover, he states he is aware of being able to purchase one OTC and states he can afford this. Rx's have been sent to [facility] in [place]. ISSAC ESCOBAR placed call to them. Linezolid went through, no PA is needed, and there is no co-pay. Pharmacist states there no issues w/any of the other new Rx's either. He states his sister, Yareli, will be doing wound care/dsg changes but she will not be returning until Wednesday. He states he is willing/able to do own dsg changes until then, stating I'll have to. RNKrishna, made aware to educate pt on how to do this. Krishna also will send dsg supplies home w/pt that is in his room. Pt states his older sister will be taking him home today, that she can go to [facility] to picking table worker his Rx's today, and she can also picking table worker more dsg supplies, if needed. Discussed HHC. He confirms he would like HHC for SN only and declines wanting/needing therapy. He was made aware SN would not be coming daily, or QOD, but usually just once a week and pt/family will need to do dsg changes/wound care in-between visits. He voices understanding. He plans [facility] as [facility]. A list of HHC providers including quality and resource use data and consistent with the patient?s preferred geographic region, medical needs, and insurance network ([facility]) were provided from the [employer] Guide. Pt's top 3 choices are: [facility], [facility], and [facility]. Pt informed this RN SHAWN that he will have [facility], starting Aug 05. ISSAC ESCOBAR informed him to let C know this and provide insurance info to them. Pt aware a referral can be sent today, but d/t the offices closed, will need to wait until Wednesday to see who is able to accept him. He was made aware someone would f/u with him on Wed re: this. Referrals sent to [facility], [facility], and [facility] via [facility]. ISSAC ESCOBAR sent e-mail to dc hair or beauty salon assistant, Jasmyn, to f/u on this on Wednesday. Script for glucometer obtained from Dr Swift and provided to pt. Pt denies having other discharge questions/concerns/needs. Dalton NOLEN RN, CM
[2024-07-29 14:35] VITALS: BP 166/99; PULSE 81; RESP 16; TEMP 36.7; O2SAT 97
[2024-07-29 14:37] VITALS: PULSE 81
--- NOTE | 2024-07-29 14:41 | NURSING ---
Extensive dressing change instruction given. Pt verbalized thorough understanding
--- NOTE | 2024-07-31 10:41 | CASEMGMT ---
Addendum entered by Jasmyn Tanner 08/01/24 08:58: Another vm left for pt as well as his sister. Jasmyn Tanner DC Planning Asst. Original Note: [facility] notified that pt has returned home. HH referrals sent over the wknd all declined. VM left for pt asking if blanket referral can be sent. Awaiting response. Jasmyn Tanner DC Planning Asst.
--- NOTE | 2024-08-01 12:14 | CASEMGMT ---
Addendum entered by Jasmyn Tanner 08/03/24 10:52: On 08/01, this development writer rec'd call from Cleo @ [facility]. She was told by family that I was working on HH for pt. I updated Cleo that I was unable to secure HH and that since he is now a pt at [facility], she would have to secure HH. Pts sister, Yareli, was updated with this information as well. Jasmyn Tanner DC Planning Asst. Addendum entered by Jasmyn Tanner 08/01/24 15:00: When following up with N on referral, they advised me that they rec'd a referral from [facility] for pt. He had been admitted yesterday. Call placed to pts sister (Yareli) letting her know that current hospital will assume referrals. Jasmyn Tanner DC Planning Asst. Original Note: Call rec'd from pts sister (Yareli). Pt has not been doing well since discharge and is currently in the ER. She gave permission to send out additional HH referrals. Referrals sent to [facility], and [facility]. Jasmyn Tanner DC Planning Asst.
== END 2024-07-29 15:11 | disposition home health service (06) | DRG 305 ==
LOC: ED 21:49 → MS3 22:13
PROVIDERS: Anesthesiology; Internal Medicine; Internal Medicine Infectious Disease; Student in an Organized Health Care Education/Training Program; Admitting Provider Internal Medicine; Emergency Provider Emergency Medicine; PCP Nurse Practitioner Family
PROC: 0Y6M0ZD Detachment at Right Foot, Partial 4th Ray, Open Approach (ICD-10-PCS; principal; 2024-07-21 14:30)
DX: E11.621 Type 2 diabetes mellitus with foot ulcer (principal); A48.0 Gas gangrene; I16.0 Hypertensive urgency; E11.43 Type 2 diabetes mellitus with diabetic autonomic (poly)neuropathy; L02.611 Cutaneous abscess of right foot; L03.115 Cellulitis of right lower limb; E66.01 Morbid (severe) obesity due to excess calories; L97.514 Non-pressure chronic ulcer of other part of right foot with necrosis of bone; Q07.00 Arnold-Chiari syndrome without spina bifida or hydrocephalus; M86.9 Osteomyelitis, unspecified; I10 Essential (primary) hypertension; E11.42 Type 2 diabetes mellitus with diabetic polyneuropathy; Z79.4 Long term (current) use of insulin; F17.220 Nicotine dependence, chewing tobacco, uncomplicated; E78.5 Hyperlipidemia, unspecified; E11.65 Type 2 diabetes mellitus with hyperglycemia; L97.512 Non-pressure chronic ulcer of other part of right foot with fat layer exposed; K21.9 Gastro-esophageal reflux disease without esophagitis; L98.494 Non-pressure chronic ulcer of skin of other sites with necrosis of bone; N17.9 Acute kidney failure, unspecified; E11.69 Type 2 diabetes mellitus with other specified complication; Z68.42 Body mass index [BMI] 45.0-49.9, adult; K31.84 Gastroparesis; Z79.85 Long-term (current) use of injectable non-insulin antidiabetic drugs; Z79.02 Long term (current) use of antithrombotics/antiplatelets; Z79.899 Other long term (current) drug therapy
CPT/HCPCS: 36415; 71045; 73620; 73630; 73720; 76000; 80048; 80053; 80202; 81001; 82962; 83036; 83605; 83735; 84100; 84443; 85025; 85610; 85730; 87015; 87040; 87070; 87075; 87077; 87086; 87088; 87102; 87116; 87186; 87205; 87206; 87640; 88305; 88311; 93005; 94668; 97110; 97116; 97162; 97166; 97530; 99285; 99406; A9575; A4216; J0295; J2405

== ENCOUNTER 2024-08-14 17:12 | Emergency (ER) | payer MEDICARE, MEDICAID, SELFPAY ==
[2024-08-14 17:13] VITALS: BP 205/103; PULSE 87; RESP 18; TEMP 36.6; O2SAT 98
--- NOTE | 2024-08-14 18:14 | EX.ED.DYSGE1 ---
HPI History of Present Illness Chief Complaint: Wound Detail of Chief Complaint: Right foot wound Informant: patient Narrative Narrative: Patient presents emergency department complaint of a wound to his right foot. He is worried about possible infection. Patient states that he sees a diesel machinist to Dr. Jiang who did a amputation of his fourth toe around July 24. He has been seeing the wound center and he has been dressing the wound with iodine. He was told if there was any concern with the wound to come to the emergency department. He states that he just does not feel well and he thought maybe there was some changes to the wound that he was concerned about and wanted to be evaluated. He said no fever. He said some mild sweats. He does have diabetes and neuropathy. [facility] Medical History Diabetes mellitus with diabetic polyneuropathy Tobacco abuse Morbid obesity with BMI of 45.0-49.9, adult History of osteomyelitis Diabetic neuropathy Cellulitis Obese Diabetes mellitus Ulcer of toe of left foot GERD (gastroesophageal reflux disease) Chiari malformation Depression Gastroparesis HTN (hypertension) Arm paresthesia, left Radicular pain in left arm HLD (hyperlipidemia) DM (diabetes mellitus), type 2 with complications Home Medications ?Medication ?Instructions ?Recorded ?Last Taken ?Type atorvastatin 80 mg tablet 80 mg PO QHS hld 07/19/24 Unknown History blood-glucose sensor (FreeStyle 07/19/24 Unknown History Deion 3 Plus Sensor device) pen needle, diabetic 31 gauge x 07/19/24 Unknown History 16 (BD Ultra-Fine Short Pen Needle) potassium chloride 20 mEq 20 meq PO DAILY 07/19/24 Unknown History tablet,extended release amoxicillin 875 mg-potassium 1 tab PO BID #20 tabs 07/25/24 Unknown Rx clavulanate 125 mg tablet acetaminophen 325 mg tablet 650 mg (2 x 325 mg) PO Q6H PRN PRN 07/26/24 Unknown Rx Pain 1-5/10 or Fever #30 tabs insulin glargine-yfgn 100 unit/mL 35 unit (0.35 mL) subcut QHS #0 mL 07/26/24 Unknown Rx (3 mL) subcutaneous pen insulin regular hum U-500 conc 500 80 unit (0.16 mL) subcut BIDCM #0 07/26/24 Unknown Rx unit/mL(3 mL) subcut pen (Humulin mL R U-500 (Conc) Insulin Kwikpen) metoprolol succinate 50 mg 50 mg PO BID #60 tabs 07/29/24 Unknown Rx tablet,extended release 24 hr bumetanide 1 mg tablet mg 08/09/24 Unknown History levofloxacin 500 mg tablet 500 mg PO DAILY 14 days #14 tabs 08/09/24 Unknown Rx oxycodone-acetaminophen 5 mg-325 1 tab PO Q6H PRN pain 7 days #28 08/09/24 Unknown Rx mg tablet (Percocet) tabs cephalexin 500 mg capsule 500 mg PO Q6 #40 CAPSULES 08/14/24 Unknown Rx hydrocodone-acetaminophen 5-325mg 1 tab PO Q4H PRN PRN Pain 2 days 08/14/24 Unknown Rx 5mg-325mg #10 TABLETS Allergy/AdvReac Type Severity Reaction Status Date / Time No Known Allergies Allergy Verified 08/14/24 17:15 Surgical History S/P foot surgery Social History Smoking Status: Current every day smoker tobacco type: smokeless tobacco ROS ROS ED Review of Systems ROS Unobtainable: other Constitutional Constitutional ED: Reports lethargy; Denies chills, fever(s), sweats or weight loss Eyes Eyes: Denies blurry vision, change in vision or diplopia ENT ENT ED: Denies rhinorrhea or sore throat Cardiovascular Cardiovascular: Denies chest pain, orthopnea or racing heartbeat Respiratory/Chest Respiratory/Chest: Denies cough, dyspnea, dyspnea on exertion, orthopnea or sputum Gastrointestinal Gastrointestinal: Denies abdominal pain, diarrhea, nausea or vomiting Genitourinary Genitourinary ED: Denies dysuria, hematuria or urinary frequency Musculoskeletal Musculoskeletal: Reports other Details: Right foot wound ; Denies arthralgias, back pain, myalgias or neck pain Integumentary Denies abscess, Abrasions or rash Neurologic Neurologic: Denies headache(s) or weakness Psychiatric Psychiatric: Denies anxiety, depression or suicidal thoughts Endocrine Endocrinology: Denies polydipsia, polyphagia or polyuria Hematologic/Lymphatic Hematologic/Lymphatic: Denies easy bleeding, easy bruising or lymphadenopathy Allergic/Immunologic Allergic/Immunologic ED: Denies mouth swelling, tongue swelling or urticaria EXAM Physical Exam Const Vital Signs: 08/14/24 17:13 08/14/24 19:11 08/14/24 21:00 Temperature 97.9 F Temperature Source Temporal Pulse Rate 87 85 88 Respiratory Rate 18 18 18 Blood Pressure 205/103 H 196/96 H 264/123 H Blood Pressure Mean 137 129 170 Pulse Ox 98 98 99 Oxygen Delivery Method Room Air Room Air Room Air Positive well nourished and well developed General Appearance ED: well developed and NAD HEENT Reports TM's clear and moist mucous membranes normocephalic and atraumatic; Negative for trauma or tenderness Tympanic Membrane ED: Yes TM's clear Eyes PERRL and EOMs intact bilaterally General Eye ED: Negative for pale conjunctiva or scleral icterus Neck no lymphadenopathy, supple and no JVD General: Negative for tenderness Chest Wall inspection of chest normal and palpation of chest normal Chest: Negative for tenderness Resp normal respiratory effort and clear to auscultation bilaterally Effort and Inspection: Negative for respiratory distress or pain with movement Auscultation: Negative for rhonchi, wheezes or diminished lung sounds Cardio regular rate, regular rhythm, S1 normal heart sound, S2 normal heart sound and no murmurs Peripheral Pulses: pulses 2+ throughout GI normal to inspection, nondistended, normoactive bowel sounds, soft to palpation, non-tender, non-distended and no masses Back/Spine no CVA tenderness and no thoracic nor lumbar tenderness Extremity Extremity Narrative: Right foot-patient has had recent surgical resection of his fourth toe with surgical scar extending onto the plantar aspect and dorsal aspect of the foot over the fourth metatarsal. There are some dry skin to the bottom of the foot. No significant pain. There is no purulent drainage noted. There is no foul odor noted. Do not appreciate significant cellulitic changes or gas in the tissues General Extremety ED: Negative for edema General Extremity: Negative for edema Neuro oriented x3, CN's II-XII intact bilaterally, no sensory deficits noted and gait normal Sensorium / Orientation: awake, alert, oriented to person, oriented to place and oriented to time Motor Exam: strength 5/5 throughout and strength abnormal Psych mental status grossly normal Skin no rashes or lesions noted and no wounds MDM MDM MDM Narrative Medical decision making narrative: Patient presents the emergency department with concern for infection in his right foot. Patient has had prior amputation recently of his fourth toe and distal metatarsal. Denies fevers. Clinically looks well. IV line established. CBC with differential obtained showed a white count 11.4 with hemoglobin 12 and platelet count of 252. Chemistries unremarkable. Three-view x-rays of the right foot obtained showed prior surgical changes with some gas in the soft tissues likely from prior intervention. Patient also had soft tissue swelling. Patient does state that his stitches were removed and wound opened during his last visit 5 days ago to podiatry Dr. Jiang. This point I discussed case with diesel machinist on-call Dr. Hood. Patient will be started empirically on Keflex. At this point I do not appreciate any foul odor or significant cellulitic changes. There is no significant drainage noted. Patient has an appointment in [address] Jiang and he will keep that. He is advised to return if worsening pain, fever, increased redness, or condition should worsen anyway Lab Data Attestation: I reviewed the patient's lab results. Labs: Laboratory Results - last 24 hr 08/14/24 18:49 WBC 11.4 H RBC 4.41 L Hgb 12.0 L Hct 36.5 L MCV 82.8 MCH 27.2 MCHC 32.9 RDW Std Deviation 41.6 RDW Coeff of Corazon 14.7 H Plt Count 252 MPV 9.4 Immature Gran % (Auto) 1.000 H Neut % (Auto) 73.8 H Lymph % (Auto) 13.6 L Kings % (Auto) 5.2 Eos % (Auto) 5.9 H Baso % (Auto) 0.5 Absolute Neuts (auto) 8.4 H Absolute Lymphs (auto) 1.55 Nucleated RBC % 0 Sodium 136 Potassium 4.4 Chloride 104 Carbon Dioxide 27.0 Anion Gap 6 BUN 19 H Creatinine 1.32 H Est GFR (MDRD) Af Amer 77 Est GFR (MDRD) Non-Af 64 BUN/Creatinine Ratio 14.4 Glucose 343 H Calcium 8.6 Radiography Diagnostic Testing: Clinical Impression(s) from Imaging Studies Foot X-Ray 08/14/24 18:35 IMPRESSION: See above. Reading Location: [facility] Three-view x-rays of the right foot obtained interpreted by myself as soft tissue swelling of the foot with gas in the soft tissues and recent distal amputation of the fourth toe and distal metatarsal. Radiology in agreement. Discharge Plan Triage Chief Complaint: Wound ED Provider: Christina Andino Dx/Rx/DC Orders Clinical Impression: Postoperative wound infection Instructions: ED Wound Infection after surgery Prescriptions: New cephalexin 500 mg capsule 500 mg PO Q6 Qty: 40 0RF hydrocodone-acetaminophen 5-325 mg tablet 1 tab PO Q4H PRN PRN (Reason: Pain) 2 Days Qty: 10 0RF No Action (DME) pen needle, diabetic [BD Ultra-Fine Short Pen Needle] 31 gauge x 5/16 needle MISCELLANEOUS 4X/DAY (DME) FreeStyle Deion 3 Plus Sensor Device MISCELLANEOUS UD potassium chloride 20 mEq tablet extended release 20 meq PO DAILY atorvastatin 80 mg tablet 80 mg PO QHS amoxicillin-pot clavulanate 875-125 mg tablet 1 tab PO BID Qty: 20 0RF acetaminophen 325 mg Tablet 650 mg PO Q6H PRN PRN (Reason: Pain 1-5/10 or Fever) Qty: 30 0RF Humulin R U-500 (Conc) Kwikpen 500 unit/mL (3 mL) Insulin Pen 80 unit subcut BIDCM Qty: 0 0RF insulin glargine-yfgn 100 unit/mL (3 mL) Insulin Pen 35 unit subcut QHS Qty: 0 0RF metoprolol succinate 50 mg tablet extended release 24 hr 50 mg PO BID Qty: 60 0RF bumetanide 1 mg tablet levofloxacin 500 mg tablet 500 mg PO DAILY 14 Days Qty: 14 0RF oxycodone-acetaminophen [Percocet] 5-325 mg tablet 1 tab PO Q6H PRN (Reason: pain) 7 Days Qty: 28 0RF Primary Care Provider: KANNAN ELISE Referrals: Vitaliy Jiang DPM [Med Staff - Active Staff] - 2 Days KANNAN ELISE NP-C [Primary Care Provider] - Print Language: Bulgarian Disposition Disposition: Home, Self Care
--- NOTE | 2024-08-14 18:35 | RAD_ITS ---
PROCEDURE: FOOT MIN 3 VIEWS REASON FOR EXAM: Postop TECHNIQUE: Three views of the right foot COMPARISON: None FINDINGS: Postop change from 4th digit amputation at the level of the mid metatarsal. Soft tissue emphysema at the postoperative site. Amputation margins are sharp. No radiopaque foreign body, fracture or dislocation. Generalized forefoot soft tissue swelling. Vascular calcifications. RAD/Foot min 3 Views IMPRESSION: See above. Reading Location: [facility]
[2024-08-14 19:11] VITALS: BP 196/96; PULSE 85; RESP 18; O2SAT 98
[2024-08-14 19:16] LABS: Absolute Lymphocyte Count 1.55 X10^3/uL (0.83-4.51); Absolute Neutrophil Count 8.4 X10^3/uL (2.0-7.7); Basophil# 0.06 X10^3/uL; Basophil% 0.5 % (0-1); Eosinophil# 0.67 X10^3/uL; Eosinophils% 5.9 % (0-5); Hematocrit 36.5 % (40-54); Lymphocyte # 1.55 X10^3/ul (0.83-4.51); Lymphocyte % 13.6 % (19-41); Mean Corp Hgb Conc 32.9 g/dL (32-36); Mean Corpuscular Hgb 27.2 pg (27.0-32.0); Mean Corpuscular Volume 82.8 fL (80-94); Mean Platelet Vol. 9.4 fl (6.2-12.0); Monocyte# 0.59 X10^3/uL; Monocyte% 5.2 % (0-10); NRBC Flagged by Analyzer 0 % (0-5); Neutrophil # 8.41 X10^3/uL (2.7-7.7); Neutrophil % 73.8 % (47-70); Platelet Count 252 K/mm3 (150-450); RBC Distribution Width CV 14.7 % (11.6-14.6); RBC Distribution Width SD 41.6 fl (35.1-43.9); Red Blood Count 4.41 M/mm3 (4.6-6.2); White Blood Count 11.4 K/mm3 (4.4-11.0)
[2024-08-14 19:32] LABS: Anion Gap 6 (5-15); BUN 19 mg/dL (7-18); BUN/Creat Ratio 14.4 RATIO (10-20); Calcium,Total 8.6 mg/dL (8.5-10.1); Chloride 104 mmol/L (98-107); Creatinine, Serum 1.32 mg/dL (0.70-1.30); EST Glomerular Filtration Rate 64 mL/min (>60); Est Glom Filt Rate - Afr Amer 77 mL/min (>60); Glucose 343 mg/dL (74-106); Potassium 4.4 mmol/L (3.5-5.1); Sodium Level 136 mmol/L (136-145)
[2024-08-14 21:00] VITALS: BP 264/123; PULSE 88; RESP 18; O2SAT 99
[2024-08-14] MEDS: Cephalexin 250 MG Capsule 500 MG PO (22:01)
[2024-08-14] MEDS: HYDROcodone Bitartrate/Apap 5/325 Tablet PO (22:02)
[2024-08-14 22:14] VITALS: BP 196/101; PULSE 83; RESP 18; TEMP 37; O2SAT 99
== END 2024-08-14 22:33 | disposition home or self-care (01) ==
PROVIDERS: Emergency Provider Emergency Medicine; PCP Nurse Practitioner Family; Visit Provider Emergency Medicine
DX: T87.44 Infection of amputation stump, left lower extremity (principal); E11.42 Type 2 diabetes mellitus with diabetic polyneuropathy; Z79.4 Long term (current) use of insulin; Y83.5 Amputation of limb(s) as the cause of abnormal reaction of the patient, or of later complication, without mention of misadventure at the time of the procedure; I10 Essential (primary) hypertension; E78.5 Hyperlipidemia, unspecified; F17.220 Nicotine dependence, chewing tobacco, uncomplicated; Z89.421 Acquired absence of other right toe(s); Z79.899 Other long term (current) drug therapy
CPT/HCPCS: 73630; 80048; 85025; 99283; A4216

== ENCOUNTER 2024-08-30 10:00 | Outpatient (RCR) | payer MEDICARE, MEDICAID, SELFPAY ==
[2024-08-09 09:55] VITALS: BP 199/65; PULSE 89; RESP 18; TEMP 35.9; BMI 48.2
--- NOTE | 2024-08-09 10:50 | PCM.WC.HP ---
History of Present Illness Date of Service: 08/09/24 Chief Complaint: Right foot full-thickness wound History of Wound: Mr. 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 Recently admitted to [facility] for CHF and lung exacerbations. He was discharged and referred to the wound care center by his primary doctor. Blood sugar has been well-controlled. Progress of Wound: Mr. Ruelas is a 39-year-old diabetic male presenting to wound care center today for follow-up evaluation of a full-thickness wound to the right foot at the level of the fourth metatarsal secondary to partial ray amputation.DOS: 07/21/2024. Since the operation the patient was discharged from the hospital and was readmitted at [facility] due to CHF exacerbations. Patient was seen by his primary doctor and referred to [facility] for further evaluation and treatment. Patient is a diabetic and has had blood sugars around 160 to 170 mg/dL. He does have history of amputation to the left foot. He denies any new onset of trauma. Denies constitutional symptoms. No other pedal complaints at this time. [facility] Medical History Diabetes mellitus with diabetic polyneuropathy Tobacco abuse Morbid obesity with BMI of 45.0-49.9, adult History of osteomyelitis Diabetic neuropathy Cellulitis Obese Diabetes mellitus Ulcer of toe of left foot GERD (gastroesophageal reflux disease) Chiari malformation Depression Gastroparesis HTN (hypertension) Arm paresthesia, left Radicular pain in left arm HLD (hyperlipidemia) DM (diabetes mellitus), type 2 with complications Home Medications ?Medication ?Instructions ?Recorded ?Last Taken ?Type atorvastatin 80 mg tablet 80 mg PO QHS hld 07/19/24 Unknown History blood-glucose sensor (FreeStyle 07/19/24 Unknown History Deion 3 Plus Sensor device) pen needle, diabetic 31 gauge x 07/19/24 Unknown History 11/17 (BD Ultra-Fine Short Pen Needle) potassium chloride 20 mEq 20 meq PO DAILY 07/19/24 Unknown History tablet,extended release amoxicillin 875 mg-potassium 1 tab PO BID #20 tabs 07/25/24 Unknown Rx clavulanate 125 mg tablet acetaminophen 325 mg tablet 650 mg (2 x 325 mg) PO Q6H PRN PRN 07/26/24 Unknown Rx Pain 1-5/10 or Fever #30 tabs insulin glargine-yfgn 100 unit/mL 35 unit (0.35 mL) subcut QHS #0 mL 07/26/24 Unknown Rx (3 mL) subcutaneous pen insulin regular hum U-500 conc 500 80 unit (0.16 mL) subcut BIDCM #0 07/26/24 Unknown Rx unit/mL(3 mL) subcut pen (Humulin mL R U-500 (Conc) Insulin Kwikpen) metoprolol succinate 50 mg 50 mg PO BID #60 tabs 07/29/24 Unknown Rx tablet,extended release 24 hr bumetanide 1 mg tablet mg 08/09/24 Unknown History levofloxacin 500 mg tablet 500 mg PO DAILY 14 days #14 tabs 08/09/24 Unknown Rx oxycodone-acetaminophen 5 mg-325 1 tab PO Q6H PRN pain 7 days #28 08/09/24 Unknown Rx mg tablet (Percocet) tabs Allergy/AdvReac Type Severity Reaction Status Date / Time No Known Allergies Allergy Verified 08/09/24 09:55 Surgical History S/P foot surgery Social History Smoking Status: Current every day smoker tobacco type: smokeless tobacco Vital Signs Vital Signs Vital Signs: 08/09/24 09:55 Temperature 96.6 F L Temperature Source Temporal Pulse Rate 89 Respiratory Rate 18 Blood Pressure 199/65 H Blood Pressure Mean 109 Blood Pressure Source Monitor Blood Pressure Position Semi-Fowlers Blood Pressure Location Left Forearm Oxygen Delivery Method Room Air Weight Weight: 166.015 kg Body Mass Index (BMI) 48.2 Physical Exam Narrative Vascular: DP and PT pulses are palpable to the right lower extremity. CFT is brisk. Blanchable erythema to the right foot. Nonpitting edema to the right foot and ankle. Neurological: Light touch intact. Protective station is diminished. Patient does respond to painful stimuli. Dermatological: Full-thickness wound at the level of the status post fourth ray amputation to the right foot measuring 7.0 x 1.5 x 4.0 cm. Positive probe to bone. Sanguinous drainage appreciated. No malodor. No purulent drainage noted. Excisional debridement down to and including subcutaneous tissue, muscle, fascia and bone of the right foot full-thickness wound with a number 5 mm dermal curette without incident. Predebridement measurement was 6.8 x 1.0 x 3.0 cm. Postdebridement measurement is 7.0 x 1.5 x 4.0 cm. Musculoskeletal: Muscle strength is 5 out of 5 in all quadrants to the right lower extremity. No pain on palpation of the full-thickness wound. No pain with calf pressure. Debridement Note Debridement Note Debridement Free Text: Excisional debridement down to and including subcutaneous tissue, muscle, fascia and bone of the right foot full-thickness wound with a number 5 mm dermal curette without incident. Predebridement measurement was 6.8 x 1.0 x 3.0 cm. Postdebridement measurement is 7.0 x 1.5 x 4.0 cm. Post-Debridement Measurements and Additional Note: Post-Debridement Measurements/Treatment - Nurse 1 - General Ulcer Assessment Start: 08/09/24 09:55 Freq: Status: Active Protocol: WC.LOWNIRAVT Activity Type Activity Date Activity User E-sign Co-sign Detail Recorded Client Recorded Date Recorded By Document 08/09/24 09:55 [id number] 08/09/24 10:16 KW 08/09/24 09:55 - Today's Visit Information Type of service Initial Visit Arrival Mode Ambulatory Patient Identification Verified (Name & Yes ) Height and Weight Height 6 ft 1 in Weight 166.015 kg Weight in Pounds 366.0 lbs Weight Measurement Method Estimated by Patient Body Mass Index (BMI) 48.2 BMI Classification Obese Vital Signs Temperature (97.8 F-99.1 F) 96.6 F L Temperature Source Temporal Pulse Rate (60-100) 89 Pulse Location Monitor Respiratory Rate (12-18) 18 Respiratory rate source Observation Oxygen Delivery Method Room Air Blood Pressure (90/60-120/80) 199/65 H Blood Pressure Mean 109 Source Monitor Position Semi-Fowlers Blood Pressure Location Left Forearm History Since Last Visit- (Skip if this is Patient's initial visit) Left Footwear Regular Shoe Right Footwear Surgical Shoe with pressure relief insole Pain Scale: 0-10 Numeric Is Patient Pain Free? No RT FOOT -Description Burning -Comments [place] WC - Nurse 1 - General Ulcer Measurement Start: 08/09/24 09:55 Freq: Status: Active Protocol: Activity Type Activity Date Activity User E-sign Co-sign Detail Recorded Client Recorded Date Recorded By Document 08/09/24 09:55 THAIS [id number] 08/09/24 10:16 KW 08/09/24 09:55 Wound Center Nurse 1 #5 RT 4TH TOE AMP SITE -Current Size (cm) - Length 0.1 -Current Size (cm) - Width 0.1 -Current Size (cm) - Depth 0.1 -Total Square Cm 0.01 -Date of Last Picture (Recall this 08/09/24 field) -Exudate Amt Small -Exudate Type Serosanguineous -Wound Margin Well Defined, Not Attached -Necrosis Amt Small (1-33%) -Necrotic Tissue Type Adherent Slough -Texture (Bev-wound Skin Appearance) Assessed -Moisture (Bev-wound Skin Appearance) Assessed,Dry/ Scaly -Color (Bev-wound Skin Appearance) Assessed -Temperature (Bev-wound Skin No Abnormality Appearance) (Pt Warm) -Tenderness on Palpation (Bev-wound No Skin Appearance) -Ulcer Cleansing Soap and Water -Foul Odor after Cleansing No -Wound Comment(s) SUTURES INTACT, ABOUT 22 Right Calf (cm) 48.5 Right Ankle (cm) 26 Left Calf (cm) 46 Left Ankle (cm) 28 - Nurse 2 - General Ulcer CM Notes Start: 08/09/24 09:55 Freq: Status: Active Protocol: Activity Type Activity Date Activity User E-sign Co-sign Detail Recorded Client Recorded Date Recorded By Document 08/09/24 10:28 HELIO [id number] 08/09/24 10:46 HELIO 08/09/24 10:28 Wound Center Nurse 2 #5 RT 4TH TOE AMP SITE -Time 10:38 -Correct Patient Yes -Correct Side, Site, Position Yes -Correct Procedure Yes -Procedure Performed Yes -Type of Procedure Debridement -Clinical Debridement Bone -Tissue Removed Non-viable tissue -Post Debridement (cm) - Length 7 -Post Debridement (cm) - Width 1.5 -Post Debridement (cm) - Depth 4.0 -Total Square (Post) (cm) 10.5 -Area of Debridement (cm) - Length 7 -Area of Debridement (cm) - Width 1.5 -Total Square (Area) (cm) 10.5 -Tunneling No -Undermining/Tunneling No -Circular Undermining No -Wound/Ulcer Outcome Not Healed -Ulcer Cleansing Rinsed/ Irrigated with Saline -Foul Odor after Cleansing No -Bioengineered Tissue No -Bleeding Controlled with Pressure -Treatment Response Procedure Tolerated Well -Offloading Yes -Type of Offloading Surgical Shoe -Debridement - Bone, 1st 20sq cm Yes Pain Scale: 0-10 Numeric Is Patient Pain Free? 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 All findings were discussed with the patient. All questions were answered to the patient's satisfaction. Excisional debridement down to and including subcutaneous tissue, muscle, fascia and bone of the right foot full-thickness wound with a number 5 mm dermal curette without incident. Predebridement measurement was 6.8 x 1.0 x 3.0 cm. Postdebridement measurement is 7.0 x 1.5 x 4.0 cm. The right full-thickness wound was flushed with copious normal saline. Cultures were taken. Gelfoam was packed to fill the space. The patient will be placed on Levaquin 500 mg daily for 2 weeks based on culture and sensitivity. Patient will be given 1 prescription for pain medication due to pain. Wound care orders were discussed with the patient and he will be changed with Betadine soaked gauze dry sterile dressing and compression wrap. I did educate the patient that he is at risk for losing the front of his leg or the need for further surgery which he was understanding of. Educated patient continue strict blood sugar control between 100 to 150 mg/dL. Follow-up at the wound care center with Dr. Jiang in 1 week. (2) Acute painful diabetic polyneuropathy: CODE(S): E11.42 - Type 2 diabetes mellitus with diabetic polyneuropathy
--- NOTE | 2024-08-10 09:35 | WC ---
PHOTO 08/09/24 RIGHT 4TH TOE AMP
--- NOTE | 2024-08-10 09:38 | WC ---
PHOTO 08/09/24 RIGHT TOE AMP SITE
[2024-08-16 12:31] VITALS: BP 189/86; PULSE 83; RESP 18; TEMP 35.6; BMI 48.2
--- NOTE | 2024-08-16 12:33 | NURSING ---
went to ER 08/14/24 - was given Cipro to take has not started was finishing up previous antibiotic
--- NOTE | 2024-08-16 14:05 | PCM.WC.HP ---
History of Present Illness Date of Service: 08/16/24 Chief Complaint: Right foot full-thickness wound History of Wound: Mr. Ruelas is a very pleasant 39-year-old male with diabetes coming wound care center today for evaluation for HBO therapy. He started with a blister on his foot after moving about 1.5 months ago. 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 His operative cultures were positive for proteus, MRSE, MS-CoNS, and strep which he was treated with vanc/unasyn then discharged home on Linezolid and Augmentin (he was seen inpatient by ID). He developed a full-thickness wound post op. He then was admitted to [facility] for CHF and lung exacerbations. He was discharged and referred to the wound care center by his primary doctor. Patient is a diabetic and has had blood sugars around 160 to 170 mg/dL. He is now seeing Dr. Jiang at the wound center for management of his right foot ulcer. He has history of foot ulcers on left foot/great toe, diabetic polyneuropathy, HTN, hyperlipidemia, GERD, Gastroparesis, obesity and CHF. With his most recent hospitalization at [facility], he had a cardiac echo with EF 55-60%. A CXRY that showed Borderline cardiomegaly with interstitial and alveolar haziness bilaterally, could represent mild pulmonary venous congestion. Progress of Wound: Right foot ulcer is stable. Wound care is currently Betadine dressing changes daily. [facility] Medical History (Reviewed 08/16/24 @ 14:11 by Suzanna Becerra DATA WAREHOUSE SPECIALIST, DATA WAREHOUSE SPECIALIST-C) Diabetes mellitus with diabetic polyneuropathy Tobacco abuse Morbid obesity with BMI of 45.0-49.9, adult History of osteomyelitis Diabetic neuropathy Cellulitis Obese Diabetes mellitus Ulcer of toe of left foot GERD (gastroesophageal reflux disease) Chiari malformation Depression Gastroparesis HTN (hypertension) Arm paresthesia, left Radicular pain in left arm HLD (hyperlipidemia) DM (diabetes mellitus), type 2 with complications Home Medications ?Medication ?Instructions ?Recorded ?Last Taken ?Type atorvastatin 80 mg tablet 80 mg PO QHS hld 07/19/24 Unknown History blood-glucose sensor (FreeStyle 07/19/24 Unknown History Deion 3 Plus Sensor device) pen needle, diabetic 31 gauge x 07/19/24 Unknown History 16 (BD Ultra-Fine Short Pen Needle) potassium chloride 20 mEq 20 meq PO DAILY 07/19/24 Unknown History tablet,extended release amoxicillin 875 mg-potassium 1 tab PO BID #20 tabs 07/25/24 Unknown Rx clavulanate 125 mg tablet acetaminophen 325 mg tablet 650 mg (2 x 325 mg) PO Q6H PRN PRN 07/26/24 Unknown Rx Pain 1-5/10 or Fever #30 tabs insulin glargine-yfgn 100 unit/mL 35 unit (0.35 mL) subcut QHS #0 mL 07/26/24 Unknown Rx (3 mL) subcutaneous pen insulin regular hum U-500 conc 500 80 unit (0.16 mL) subcut BIDCM #0 07/26/24 Unknown Rx unit/mL(3 mL) subcut pen (Humulin mL R U-500 (Conc) Insulin Kwikpen) metoprolol succinate 50 mg 50 mg PO BID #60 tabs 07/29/24 Unknown Rx tablet,extended release 24 hr bumetanide 1 mg tablet mg 08/09/24 Unknown History levofloxacin 500 mg tablet 500 mg PO DAILY 14 days #14 tabs 08/09/24 Unknown Rx oxycodone-acetaminophen 5 mg-325 1 tab PO Q6H PRN pain 7 days #28 08/09/24 Unknown Rx mg tablet (Percocet) tabs cephalexin 500 mg capsule 500 mg PO Q6 #40 CAPSULES 08/14/24 Unknown Rx hydrocodone-acetaminophen 5-325mg 1 tab PO Q4H PRN PRN Pain 2 days 08/14/24 Unknown Rx 5mg-325mg #10 TABLETS Allergy/AdvReac Type Severity Reaction Status Date / Time No Known Allergies Allergy Verified 08/14/24 17:15 Surgical History (Reviewed 08/16/24 @ 14:11 by Suzanna Becerra DATA WAREHOUSE SPECIALIST, DATA WAREHOUSE SPECIALIST-C) S/P foot surgery Social History Smoking Status: Current every day smoker tobacco type: smokeless tobacco ROS Constitutional Constitutional: Denies chills or fever(s) Eyes Eyes: Reports none ENT HEENT: Reports other Details: decreased hearing since his surgery ; Denies dizziness Cardiovascular Cardiovascular: Reports as per HPI and dyspnea on exertion; Denies chest pain or nausea Respiratory/Chest Respiratory/Chest: Reports as per HPI Gastrointestinal Gastrointestinal: Reports none Genitourinary Genitourinary: Reports none Musculoskeletal Musculoskeletal: Reports as per HPI Integumentary Integumentary: Reports as per HPI and skin ulcer Neurologic Neurologic: Reports as per HPI Psychiatric Psychiatric: Reports none Endocrine Endocrinology: Reports as per HPI Hematologic/Lymphatic Hematologic/Lymphatic: Reports none Allergic/Immunologic Allergic/Immunologic: Reports none Vital Signs Vital Signs Vital Signs: 08/16/24 12:31 Temperature 96.0 F L Temperature Source Temporal Pulse Rate 83 Respiratory Rate 18 Blood Pressure 189/86 H Blood Pressure Mean 120 Blood Pressure Source Monitor Blood Pressure Position Sitting Blood Pressure Location Left Arm Oxygen Delivery Method Room Air Weight Weight: 366 lb Body Mass Index (BMI) 48.2 Physical Exam Const alert and oriented x3 General Appearance: cooperative and well kempt HEENT normocephalic Eyes General Eye: normal appearance of both eyes Neck full ROM Lymph Lymphatic: no lymphedema noted Resp normal respiratory effort, normal air movement and clear to auscultation bilaterally Effort and Inspection: able to speak in complete sentences Cardio regular rate and regular rhythm GI soft to palpation Back/Spine normal ROM Extremity normal capillary refill Peripheral Pulses: Yes dorsalis pedis pulses present Skin Wound Narrative: Chronic ulcer right foot at 4th ray amputation. No erythema present. Neuro oriented x3 Psych mental status grossly normal, thought process normal and cooperative Appearance: grossly normal Attitude: engaged Activity / Motor Behavior: appropriate eye contact Debridement Note Debridement Note Post-Debridement Measurements and Additional Note: Post-Debridement Measurements/Treatment - Nurse 1 - General Ulcer Assessment Start: 08/09/24 09:55 Freq: Status: Active Protocol: [email or web address] Activity Type Activity Date Activity User E-sign Co-sign Detail Recorded Client Recorded Date Recorded By Document 08/09/24 09:55 KW [id number] 08/09/24 10:16 KW Document 08/16/24 12:31 DS [id number] 08/16/24 12:34 DS Edit Result 08/16/24 12:31 DS (1) [id number] 08/16/24 12:56 DS (1) Pulse Rate (60-100) => 83 Blood Pressure (90/60-120/80) => 189/86 H Blood Pressure Mean => 120 08/09/24 08/16/24 09:55 12:31 WC - Today's Visit Information Type of service Initial Visit Follow-up Visit (Physician/MICROGRAPHICS SERVICES SUPERVISOR ) Arrival Mode Ambulatory Ambulatory, Other Patient Identification Verified (Name & Yes Yes ) Patient Requires Transmission-Based No Precautions Height and Weight Height 6 ft 1 in Weight 366 lb Weight in Pounds 366.0 lbs Weight Measurement Method Estimated by Patient Body Mass Index (BMI) 48.2 48.2 BMI Classification Obese Obese Vital Signs Temperature (97.8 F-99.1 F) 96.6 F L 96.0 F L Temperature Source Temporal Temporal Pulse Rate (60-100) 89 83 Pulse Location Monitor Monitor Respiratory Rate (12-18) 18 18 Respiratory rate source Observation Observation Oxygen Delivery Method Room Air Room Air Blood Pressure (90/60-120/80) 199/65 H 189/86 H Blood Pressure Mean 109 120 Source Monitor Monitor Position Semi-Fowlers Sitting Blood Pressure Location Left Forearm Left Arm History Since Last Visit- (Skip if this is Patient's initial visit) Have you changed medications since your No last visit? Any new allergies or adverse reactions No Had a fall/change in ADL's that may No increase risk of falls Signs or symptoms of abuse and/or No neglect since last visit Have you been in the hospital since your Yes last visit? Has dressing in place as prescribed Yes Has compression in place as prescribed N/A Has offloadiing in place as prescribed Yes Experienced any changes in pain level or No management Left Footwear Regular Shoe Regular Shoe Right Footwear Surgical Shoe Surgical Shoe with pressure with pressure relief insole relief insole Pain Scale: 0-10 Numeric Is Patient Pain Free? No Yes RT FOOT -Description Burning -Comments TINGLING 08/16/24 12:33 Nursing Note by Leta Hylton went to ER 08/14/24 - was given Cipro to take has not started was finishing up previous antibiotic Initialized on 08/16/24 12:33 - END OF NOTE WC - Nurse 1 - General Ulcer Measurement Start: 08/09/24 09:55 Freq: Status: Active Protocol: Activity Type Activity Date Activity User E-sign Co-sign Detail Recorded Client Recorded Date Recorded By Document 08/09/24 09:55 KW [id number] 08/09/24 10:16 KW Document 08/16/24 12:34 DS [id number] 08/16/24 12:52 DS 08/09/24 08/16/24 09:55 12:34 Wound Center Nurse 1 #5 RT 4TH TOE AMP SITE -Current Size (cm) - Length 0.1 11.0 -Current Size (cm) - Width 0.1 1.1 -Current Size (cm) - Depth 0.1 1.5 -Total Square Cm 0.01 12.10 -Date of Last Picture (Recall this 08/09/24 field) -Photo Taken No -Tunneling No -Undermining/Tunneling No -Circular Undermining No -Exudate Amt Small -Exudate Type Serosanguineous -Wound Margin Well Defined, Distinct, Not Attached Outline Attached -Necrosis Amt Small (1-33%) -Necrotic Tissue Type Adherent Slough -Texture (Bev-wound Skin Appearance) Assessed Assessed -Moisture (Bev-wound Skin Appearance) Assessed,Dry/ Assessed Scaly -Color (Bev-wound Skin Appearance) Assessed Assessed -Temperature (Bev-wound Skin No Abnormality No Abnormality Appearance) (Pt Warm) (Pt Warm) -Tenderness on Palpation (Bev-wound No No Skin Appearance) -Ulcer Cleansing Soap and Water Soap and Water -Foul Odor after Cleansing No No -Anesthetic Used 5% Lidocaine Gel -Wound Comment(s) SUTURES INTACT, ABOUT 22 Right Calf (cm) 48.5 Right Ankle (cm) 26 Left Calf (cm) 46 Left Ankle (cm) 28 WC - Nurse 2 - General Ulcer CM Notes Start: 08/09/24 09:55 Freq: Status: Active Protocol: Activity Type Activity Date Activity User E-sign Co-sign Detail Recorded Client Recorded Date Recorded By Document 08/09/24 10:28 [id number] 08/09/24 10:46 Document 08/16/24 12:59 [facility] [id number] 08/16/24 13:10 BM Document 08/16/24 13:40 [id number] 08/16/24 13:42 08/09/24 08/16/24 08/16/24 10:28 12:59 13:40 Wound Center Nurse 2 #5 RT 4TH TOE AMP SITE -Time 10:38 13:01 13:41 -Correct Patient Yes Yes Yes -Correct Side, Site, Position Yes Yes Yes -Correct Procedure Yes Yes No -Procedure Performed Yes Yes No -Type of Procedure Debridement Debridement -Clinical Debridement Bone Bone -Tissue Removed Non-viable tissue -Post Debridement (cm) - Length 7 5 -Post Debridement (cm) - Width 1.5 1.4 -Post Debridement (cm) - Depth 4.0 3 -Total Square (Post) (cm) 10.5 7.0 -Area of Debridement (cm) - Length 7 5 -Area of Debridement (cm) - Width 1.5 1.4 -Total Square (Area) (cm) 10.5 7.0 -Tunneling No No No -Undermining/Tunneling No No No -Circular Undermining No No No -Wound/Ulcer Outcome Not Healed Not Healed Not Healed -Ulcer Cleansing Rinsed/ Rinsed/ Irrigated with Irrigated with Saline Saline -Foul Odor after Cleansing No No No -Bioengineered Tissue No No No -Bleeding Controlled with Pressure Pressure NA -Treatment Response Procedure Procedure Tolerated Well Tolerated Well -Offloading Yes -Type of Offloading Surgical Shoe -Debridement - Bone, 1st 20sq cm Yes Yes -Wound Comment(s) sutures removed HBO CONSULT TODAY Pain Scale: 0-10 Numeric Is Patient Pain Free? Yes Yes Yes - Nurse 3 - General Ulcer D/C NN Start: 08/09/24 09:55 Freq: Status: Active Protocol: Activity Type Activity Date Activity User E-sign Co-sign Detail Recorded Client Recorded Date Recorded By Document 08/09/24 10:57 CP [id number] 08/09/24 11:00 CP Document 08/16/24 13:48 ML [id number] 08/16/24 13:50 ML 08/09/24 08/16/24 10:57 13:48 Wound Care Center Nurse 3 #5 RT 4TH TOE AMP SITE -Ulcer Cleansing Rinsed/ Irrigated with Saline -Foul Odor after Cleansing No -Other Dressing betadine BETADINE SOAKED GUAZE -Primary Dressing Covered/Secured with Dry Gauze & Dry Gauze, Roll Gauze Secured with Tape Right -Compression Wrap [place] Wrap Pain Scale: 0-10 Numeric Is Patient Pain Free? No Yes RT FOOT -Duration (hours) Chronic -Pain Behavior No Change in Behavior -Alleviating Factors/Interventions Distraction -Effectiveness of Alleviating Factor/ Moderately Intervention effective WC - Visit Discharge Discharge Condition Stable Ambulatory Status Ambulatory Transportation Private Auto Medication Reconcilliation completed & No provided to patient/care provider Clinical Summary of Care Provided Yes Lab / Micro Data Micro: Microbiology 08/09/24 10:33 Ulcer, Decubitus - Right Foot Gram Stain - Final 08/09/24 10:33 Ulcer, Decubitus - Right Foot Wound Culture - Final No growth aerobically. 08/09/24 10:33 Ulcer, Decubitus - Right Foot Anaerobic Culture - Final No growth in 5 days. 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 Patient would benefit from HBO therapy to help heal his diabetic non pressure chronic ulcer with bone involvement. With his significant medical history, he will have a difficult time healing this ulcer without advanced wound therapies. He would need evaluated by pulmonology for clearance and he will need and EKG. He may need cardiac clearance. Once he receives his clearances we will seek approval for HBO therapy which would be daily 5 days a week for 30 visits at 2 TOYIN pressure with no air breaks for 90 minutes.
--- NOTE | 2024-08-16 14:55 | PN.PCM_ITS ---
History of Present Illness Date of Service: 08/16/24 Chief Complaint: Right foot full-thickness wound History of Wound: Mr. 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 Recently admitted to [facility] for CHF and lung exacerbations. He was discharged and referred to the wound care center by his primary doctor. Blood sugar has been well-controlled. He had surgery by Dr. Hood Progress of Wound: Mr. Ruelas is a 39-year-old diabetic male presented wound care center today follow-up evaluation of right foot full-thickness wound. Wound stable. No sign of infection. Subjective Subjective Mr. Ruelas is a 39-year-old diabetic male presented wound care center today for follow-up evaluation of full-thickness wound to the right lower extremity. He is doing dressing changes prescribed. He was seen at the emergency room for concern of infection. He was discharged and given oral antibiotics by on-call podiatry. He is presenting today for continued care at the wound care center. Denies any trauma. Denies constitutional symptoms. No other pedal complaints at this time. Objective Data Objective Data Vital Signs: Vital Signs Temp Pulse Resp BP O2 Del Method 96.0 F L 83 18 189/86 H Room Air 08/16/24 12:31 08/16/24 12:31 08/16/24 12:31 08/16/24 12:31 08/16/24 12:31 Oxygen Delivery Method Room Air Weight: 166.015 kg Body Mass Index (BMI) 48.2 Lab / Micro Data Micro: Microbiology 08/09/24 10:33 Ulcer, Decubitus - Right Foot Gram Stain - Final 08/09/24 10:33 Ulcer, Decubitus - Right Foot Wound Culture - Final No growth aerobically. 08/09/24 10:33 Ulcer, Decubitus - Right Foot Anaerobic Culture - Final No growth in 5 days. Physical Exam Narrative Vascular: DP and PT pulses are palpable to the right lower extremity. CFT is brisk. No erythema to the right foot. Nonpitting edema to the right foot and ankle. Neurological: Light touch intact. Protective station is diminished. Patient does respond to painful stimuli. Dermatological: Full-thickness wound at the level of the status post fourth ray amputation to the right foot measuring 5.0 x 1.4 x 3.0 cm. Positive probe to bone. Sanguinous drainage appreciated. No malodor. No purulent drainage noted. Excisional debridement down to and including subcutaneous tissue, muscle, fascia and bone of the right foot full-thickness wound with a number 5 mm dermal curette without incident. Predebridement measurement was 4.8 x 1.2 x 2.5 cm. Postdebridement measurement is 5.0 x 1.4 x 3.0 cm. Musculoskeletal: Muscle strength is 5 out of 5 in all quadrants to the right lower extremity. No pain on palpation of the full-thickness wound. No pain with calf pressure. Debridement Note Debridement Note Debridement Free Text: Excisional debridement down to and including subcutaneous tissue, muscle, fascia and bone of the right foot full-thickness wound with a number 5 mm dermal curette without incident. Predebridement measurement was 4.8 x 1.2 x 2.5 cm. Postdebridement measurement is 5.0 x 1.4 x 3.0 cm. Post-Debridement Measurements and Additional Note: Post-Debridement Measurements/Treatment - Nurse 1 - General Ulcer Assessment Start: 08/09/24 09:55 Freq: Status: Active Protocol: .LOWHEATHER Activity Type Activity Date Activity User E-sign Co-sign Detail Recorded Client Recorded Date Recorded By Document 08/09/24 09:55 KW [id number] 08/09/24 10:16 KW Document 08/16/24 12:31 DS [id number] 08/16/24 12:34 DS Edit Result 08/16/24 12:31 DS (1) [id number] 08/16/24 12:56 DS (1) Pulse Rate (60-100) => 83 Blood Pressure (90/60-120/80) => 189/86 H Blood Pressure Mean (mm Hg) => 120 08/09/24 08/16/24 09:55 12:31 - Today's Visit Information Type of service Initial Visit Follow-up Visit (Physician/[employer] ) Arrival Mode Ambulatory Ambulatory, Other Patient Identification Verified (Name & Yes Yes ) Patient Requires Transmission-Based No Precautions Height and Weight Height 6 ft 1 in Weight 166.015 kg Weight in Pounds 366.0 lbs Weight Measurement Method Estimated by Patient Body Mass Index (BMI) 48.2 48.2 BMI Classification Obese Obese Vital Signs Temperature (97.8 F-99.1 F) 96.6 F L 96.0 F L Temperature Source Temporal Temporal Pulse Rate (60-100) 89 83 Pulse Location Monitor Monitor Respiratory Rate (12-18) 18 18 Respiratory rate source Observation Observation Oxygen Delivery Method Room Air Room Air Blood Pressure (90/60-120/80) 199/65 H 189/86 H Blood Pressure Mean (mm Hg) 109 120 Source Monitor Monitor Position Semi-Fowlers Sitting Blood Pressure Location Left Forearm Left Arm History Since Last Visit- (Skip if this is Patient's initial visit) Have you changed medications since your No last visit? Any new allergies or adverse reactions No Had a fall/change in ADL's that may No increase risk of falls Signs or symptoms of abuse and/or No neglect since last visit Have you been in the hospital since your Yes last visit? Has dressing in place as prescribed Yes Has compression in place as prescribed N/A Has offloadiing in place as prescribed Yes Experienced any changes in pain level or No management Left Footwear Regular Shoe Regular Shoe Right Footwear Surgical Shoe Surgical Shoe with pressure with pressure relief insole relief insole Pain Scale: 0-10 Numeric Is Patient Pain Free? No Yes RT FOOT -Description Burning -Comments TINGLING 08/16/24 12:33 Nursing Note by Leta Hylton went to ER 08/14/24 - was given Cipro to take has not started was finishing up previous antibiotic Initialized on 08/16/24 12:33 - END OF NOTE WC - Nurse 1 - General Ulcer Measurement Start: 08/09/24 09:55 Freq: Status: Active Protocol: Activity Type Activity Date Activity User E-sign Co-sign Detail Recorded Client Recorded Date Recorded By Document 08/09/24 09:55 KW [id number] 08/09/24 10:16 KW Document 08/16/24 12:34 DS [id number] 08/16/24 12:52 DS 08/09/24 08/16/24 09:55 12:34 Wound Center Nurse 1 #5 RT 4TH TOE AMP SITE -Current Size (cm) - Length 0.1 11.0 -Current Size (cm) - Width 0.1 1.1 -Current Size (cm) - Depth 0.1 1.5 -Total Square Cm 0.01 12.10 -Date of Last Picture (Recall this 08/09/24 field) -Photo Taken No -Tunneling No -Undermining/Tunneling No -Circular Undermining No -Exudate Amt Small -Exudate Type Serosanguineous -Wound Margin Well Defined, Distinct, Not Attached Outline Attached -Necrosis Amt Small (1-33%) -Necrotic Tissue Type Adherent Slough -Texture (Bev-wound Skin Appearance) Assessed Assessed -Moisture (Bev-wound Skin Appearance) Assessed,Dry/ Assessed Scaly -Color (Bev-wound Skin Appearance) Assessed Assessed -Temperature (Bev-wound Skin No Abnormality No Abnormality Appearance) (Pt Warm) (Pt Warm) -Tenderness on Palpation (Bev-wound No No Skin Appearance) -Ulcer Cleansing Soap and Water Soap and Water -Foul Odor after Cleansing No No -Anesthetic Used 5% Lidocaine Gel -Wound Comment(s) SUTURES INTACT, ABOUT 22 Right Calf (cm) 48.5 Right Ankle (cm) 26 Left Calf (cm) 46 Left Ankle (cm) 28 WC - Nurse 2 - General Ulcer CM Notes Start: 08/09/24 09:55 Freq: Status: Active Protocol: Activity Type Activity Date Activity User E-sign Co-sign Detail Recorded Client Recorded Date Recorded By Document 08/09/24 10:28 [id number] 08/09/24 10:46 Document 08/16/24 12:59 [facility] [id number] 08/16/24 13:10 [facility] Document 08/16/24 13:40 [id number] 08/16/24 13:42 08/09/24 08/16/24 08/16/24 10:28 12:59 13:40 Wound Center Nurse 2 #5 RT 4TH TOE AMP SITE -Time 10:38 13:01 13:41 -Correct Patient Yes Yes Yes -Correct Side, Site, Position Yes Yes Yes -Correct Procedure Yes Yes No -Procedure Performed Yes Yes No -Type of Procedure Debridement Debridement -Clinical Debridement Bone Bone -Tissue Removed Non-viable tissue -Post Debridement (cm) - Length 7 5 -Post Debridement (cm) - Width 1.5 1.4 -Post Debridement (cm) - Depth 4.0 3 -Total Square (Post) (cm) 10.5 7.0 -Area of Debridement (cm) - Length 7 5 -Area of Debridement (cm) - Width 1.5 1.4 -Total Square (Area) (cm) 10.5 7.0 -Tunneling No No No -Undermining/Tunneling No No No -Circular Undermining No No No -Wound/Ulcer Outcome Not Healed Not Healed Not Healed -Ulcer Cleansing Rinsed/ Rinsed/ Irrigated with Irrigated with Saline Saline -Foul Odor after Cleansing No No No -Bioengineered Tissue No No No -Bleeding Controlled with Pressure Pressure NA -Treatment Response Procedure Procedure Tolerated Well Tolerated Well -Offloading Yes -Type of Offloading Surgical Shoe -Debridement - Bone, 1st 20sq cm Yes Yes -Wound Comment(s) sutures removed HBO CONSULT TODAY Pain Scale: 0-10 Numeric Is Patient Pain Free? Yes Yes Yes WC - Nurse 3 - General Ulcer D/C NN Start: 08/09/24 09:55 Freq: Status: Active Protocol: Activity Type Activity Date Activity User E-sign Co-sign Detail Recorded Client Recorded Date Recorded By Document 08/09/24 10:57 CP [id number] 08/09/24 11:00 CP Document 08/16/24 13:48 ML [id number] 08/16/24 13:50 ML 08/09/24 08/16/24 10:57 13:48 Wound Care Center Nurse 3 #5 RT 4TH TOE AMP SITE -Ulcer Cleansing Rinsed/ Irrigated with Saline -Foul Odor after Cleansing No -Other Dressing betadine BETADINE SOAKED GUAZE -Primary Dressing Covered/Secured with Dry Gauze & Dry Gauze, Roll Gauze Secured with Tape Right -Compression Wrap [place] Wrap Pain Scale: 0-10 Numeric Is Patient Pain Free? 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 All findings were discussed with the patient. All questions were answered to the patient's satisfaction. Excisional debridement down to and including subcutaneous tissue, muscle, fascia and bone of the right foot full-thickness wound with a number 5 mm dermal curette without incident. Predebridement measurement was 4.8 x 1.2 x 2.5 cm. Postdebridement measurement is 5.0 x 1.4 x 3.0 cm. The right full-thickness wound was flushed with copious normal saline. Cultures were taken. Gelfoam was packed to fill the space. The patient will be placed on Levaquin 500 mg daily for 2 weeks based on culture and sensitivity. Patient will continue dressing changes as prescribed. No pain medication was given at this time. I educated the patient on signs symptoms of infection. He will continue to monitor blood sugar and continue strict blood sugar control. Follow-up at the wound care center with Dr. Jiang in 1 week. (2) Acute painful diabetic polyneuropathy: CODE(S): E11.42 - Type 2 diabetes mellitus with diabetic polyneuropathy
[2024-08-23 09:31] VITALS: BP 149/96; PULSE 95; RESP 18; TEMP 36; BMI 48.2
--- NOTE | 2024-08-23 11:42 | PCM.WC.PN ---
History of Present Illness Date of Service: 08/23/24 Chief Complaint: Right foot full-thickness wound History of Wound: Mr. Ruelas is a very pleasant 39-year-old male with diabetes coming wound care center today for evaluation for HBO therapy. He started with a blister on his foot after moving about 1.5 months ago. 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 Hood, practice coordinator for partial ray amputation to the fourth metatarsal right foot. His operative cultures were positive for proteus, MRSE, MS-CoNS, and strep which he was treated with vanc/unasyn then discharged home on Linezolid and Augmentin (he was seen inpatient by ID). He developed a full-thickness wound post op. He then was admitted to [facility] for CHF and lung exacerbations. He was discharged and referred to the wound care center by his primary doctor. Patient is a diabetic and has had blood sugars around 160 to 170 mg/dL. He is now seeing Dr. Jiang at the wound center for management of his right foot ulcer. He has history of foot ulcers on left foot/great toe, diabetic polyneuropathy, HTN, hyperlipidemia, GERD, Gastroparesis, obesity and CHF. With his most recent hospitalization at [facility], he had a cardiac echo with EF 55-60%. A CXRY that showed Borderline cardiomegaly with interstitial and alveolar haziness bilaterally, could represent mild pulmonary venous congestion. Progress of Wound: Right foot ulcer is stable. Wound care is currently Betadine dressing changes daily. Subjective Subjective Mr. Ruelas is a 39-year-old diabetic male presented wound care center follow-up evaluation of fourth ray full-thickness wound secondary to surgery and surgical wound dehiscence. Patient states that his blood sugars between 160 and 180 mg/dL. He admitts to some pain with weightbearing when he is throughout the house. He is doing daily dressing changes as discussed. He denies trauma. Denies constitutional symptoms. No other pedal complaints at this time. Objective Data Objective Data Vital Signs: Vital Signs Temp Pulse Resp BP O2 Del Method 96.8 F L 95 18 149/96 H Room Air 08/23/24 09:31 08/23/24 09:31 08/23/24 09:31 08/23/24 09:31 08/23/24 09:31 Oxygen Delivery Method Room Air Weight: 166.015 kg Body Mass Index (BMI) 48.2 Lab / Micro Data Micro: Microbiology 08/09/24 10:33 Ulcer, Decubitus - Right Foot Gram Stain - Final 08/09/24 10:33 Ulcer, Decubitus - Right Foot Wound Culture - Final No growth aerobically. 08/09/24 10:33 Ulcer, Decubitus - Right Foot Anaerobic Culture - Final No growth in 5 days. Physical Exam Narrative Vascular: DP and PT pulses are palpable to the right lower extremity. CFT is brisk. No erythema to the right foot. Nonpitting edema to the right foot and ankle. Neurological: Light touch intact. Protective station is diminished. Patient does respond to painful stimuli. Dermatological: Full-thickness wound at the level of the status post fourth ray amputation to the right foot measuring 4.2 x 0.9 x 5.2 cm. Positive probe to bone. Sanguinous drainage appreciated. No malodor. No purulent drainage noted. Excisional debridement down to and including subcutaneous tissue, muscle, fascia and bone of the right foot full-thickness wound with a number 5 mm dermal curette without incident. Predebridement measurement was 4.0 x 0.8 x 4.0 cm. Postdebridement measurement is 4.2 x 0.9 x 5.2 cm. Musculoskeletal: Muscle strength is 5 out of 5 in all quadrants to the right lower extremity. No pain on palpation of the full-thickness wound. No pain with calf pressure. Debridement Note Debridement Note Debridement Free Text: Excisional debridement down to and including subcutaneous tissue, muscle, fascia and bone of the right foot full-thickness wound with a number 5 mm dermal curette without incident. Predebridement measurement was 4.0 x 0.8 x 4.0 cm. Postdebridement measurement is 4.2 x 0.9 x 5.2 cm. Post-Debridement Measurements and Additional Note: Post-Debridement Measurements/Treatment WC - Nurse 1 - General Ulcer Assessment Start: 08/09/24 09:55 Freq: Status: Active Protocol: LARISSA.LOWEXT Activity Type Activity Date Activity User E-sign Co-sign Detail Recorded Client Recorded Date Recorded By Document 08/09/24 09:55 KW [id number] 08/09/24 10:16 KW Document 08/16/24 12:31 DS [id number] 08/16/24 12:34 DS Edit Result 08/16/24 12:31 DS (1) [id number] 08/16/24 12:56 DS Document 08/23/24 09:31 DL [id number] 08/23/24 09:33 DL (1) Pulse Rate (60-100) => 83 Blood Pressure (90/60-120/80) => 189/86 H Blood Pressure Mean (mm Hg) => 120 08/09/24 08/16/24 08/23/24 09:55 12:31 09:31 WC - Today's Visit Information Type of service Initial Visit Follow-up Visit Follow-up Visit (Physician/[employer] (Physician/[employer] ) ) Arrival Mode Ambulatory Ambulatory, Ambulatory, Other Other Arrival Mode (Other) rolator Patient Identification Verified (Name & Yes Yes Yes ) Patient Requires Transmission-Based No No Precautions Height and Weight Height 6 ft 1 in Weight 166.015 kg Weight in Pounds 366.0 lbs Weight Measurement Method Estimated by Patient Body Mass Index (BMI) 48.2 48.2 48.2 BMI Classification Obese Obese Obese Vital Signs Temperature (97.8 F-99.1 F) 96.6 F L 96.0 F L 96.8 F L Temperature Source Temporal Temporal Temporal Pulse Rate (60-100) 89 83 95 Pulse Location Monitor Monitor Monitor Respiratory Rate (12-18) 18 18 18 Respiratory rate source Observation Observation Observation Oxygen Delivery Method Room Air Room Air Room Air Blood Pressure (90/60-120/80) 199/65 H 189/86 H 149/96 H Blood Pressure Mean (mm Hg) 109 120 113 Source Monitor Monitor Monitor Position Semi-Fowlers Sitting Sitting Blood Pressure Location Left Forearm Left Arm Left Arm History Since Last Visit- (Skip if this is Patient's initial visit) Have you changed medications since your No No last visit? Any new allergies or adverse reactions No No Had a fall/change in ADL's that may No No increase risk of falls Signs or symptoms of abuse and/or No No neglect since last visit Have you been in the hospital since your Yes No last visit? Has dressing in place as prescribed Yes Yes Has compression in place as prescribed N/A Yes Has offloadiing in place as prescribed Yes Yes Experienced any changes in pain level or No No management Left Footwear Regular Shoe Regular Shoe Right Footwear Surgical Shoe Surgical Shoe with pressure with pressure relief insole relief insole Pain Scale: 0-10 Numeric Is Patient Pain Free? No Yes Yes RT FOOT -Description Burning -Comments [place] 08/16/24 12:33 Nursing Note by Leta Hylton went to ER 08/14/24 - was given Cipro to take has not started was finishing up previous antibiotic Initialized on 08/16/24 12:33 - END OF NOTE WC - Nurse 1 - General Ulcer Measurement Start: 08/09/24 09:55 Freq: Status: Active Protocol: Activity Type Activity Date Activity User E-sign Co-sign Detail Recorded Client Recorded Date Recorded By Document 08/09/24 09:55 KW [id number] 08/09/24 10:16 KW Document 08/16/24 12:34 DS [id number] 08/16/24 12:52 DS Document 08/23/24 09:31 DL [id number] 08/23/24 09:33 DL 08/09/24 08/16/24 08/23/24 09:55 12:34 09:31 Wound Center Nurse 1 #5 RT 4TH TOE AMP SITE -Current Size (cm) - Length 0.1 11.0 2.5 -Current Size (cm) - Width 0.1 1.1 0.1 -Current Size (cm) - Depth 0.1 1.5 3.5 -Total Square Cm 0.01 12.10 0.25 -Date of Last Picture (Recall this 08/09/24 08/23/24 field) -Photo Taken No Yes -Epithelialization Small 1-33% -Tunneling No No -Undermining/Tunneling No No -Circular Undermining No No -Exudate Amt Small Large -Exudate Type Serosanguineous Serosanguineous -Wound Margin Well Defined, Distinct, Distinct, Not Attached Outline Outline Attached Attached -Slough/Fibrin Yes -Necrosis Amt Small (1-33%) -Necrotic Tissue Type Adherent Slough -Texture (Bev-wound Skin Appearance) Assessed Assessed Assessed -Moisture (Bev-wound Skin Appearance) Assessed,Dry/ Assessed Assessed, Scaly Maceration -Color (Bev-wound Skin Appearance) Assessed Assessed Assessed -Temperature (Bev-wound Skin No Abnormality No Abnormality No Abnormality Appearance) (Pt Warm) (Pt Warm) (Pt Warm) -Tenderness on Palpation (Bev-wound No No Skin Appearance) -Ulcer Cleansing Soap and Water Soap and Water Soap and Water -Foul Odor after Cleansing No No No -Anesthetic Used 5% Lidocaine 4% Lidocaine Gel Solution -Wound Comment(s) SUTURES INTACT, ABOUT 22 Right Calf (cm) 48.5 Right Ankle (cm) 26 Left Calf (cm) 46 Left Ankle (cm) 28 WC - Nurse 2 - General Ulcer CM Notes Start: 08/09/24 09:55 Freq: Status: Active Protocol: Activity Type Activity Date Activity User E-sign Co-sign Detail Recorded Client Recorded Date Recorded By Document 08/09/24 10:28 [id number] 08/09/24 10:46 Document 08/16/24 12:59 [facility] [id number] 08/16/24 13:10 [facility] Document 08/16/24 13:40 [id number] 08/16/24 13:42 Document 08/23/24 09:47 [id number] 08/23/24 09:51 08/09/24 08/16/24 08/16/24 10:28 12:59 13:40 Wound Center Nurse 2 #5 RT 4TH TOE AMP SITE -Time 10:38 13:01 13:41 -Correct Patient Yes Yes Yes -Correct Side, Site, Position Yes Yes Yes -Correct Procedure Yes Yes No -Procedure Performed Yes Yes No -Type of Procedure Debridement Debridement -Clinical Debridement Bone Bone -Tissue Removed Non-viable tissue -Post Debridement (cm) - Length 7 5 -Post Debridement (cm) - Width 1.5 1.4 -Post Debridement (cm) - Depth 4.0 3 -Total Square (Post) (cm) 10.5 7.0 -Area of Debridement (cm) - Length 7 5 -Area of Debridement (cm) - Width 1.5 1.4 -Total Square (Area) (cm) 10.5 7.0 -Tunneling No No No -Undermining/Tunneling No No No -Circular Undermining No No No -Wound/Ulcer Outcome Not Healed Not Healed Not Healed -Ulcer Cleansing Rinsed/ Rinsed/ Irrigated with Irrigated with Saline Saline -Foul Odor after Cleansing No No No -Bioengineered Tissue No No No -Bleeding Controlled with Pressure Pressure NA -Treatment Response Procedure Procedure Tolerated Well Tolerated Well -Offloading Yes -Type of Offloading Surgical Shoe -Debridement - Bone, 1st 20sq cm Yes Yes -Wound Comment(s) sutures removed HBO CONSULT TODAY Pain Scale: 0-10 Numeric Is Patient Pain Free? Yes Yes Yes 08/23/24 09:47 Wound Center Nurse 2 #5 RT 4TH TOE AMP SITE -Time 09:47 -Correct Patient Yes -Correct Side, Site, Position Yes -Correct Procedure Yes -Procedure Performed Yes -Type of Procedure Debridement -Clinical Debridement Bone -Tissue Removed Non-viable tissue -Post Debridement (cm) - Length 4.2 -Post Debridement (cm) - Width 0.9 -Post Debridement (cm) - Depth 5.2 -Total Square (Post) (cm) 3.78 -Area of Debridement (cm) - Length 4.2 -Area of Debridement (cm) - Width 0.9 -Total Square (Area) (cm) 3.78 -Tunneling No -Undermining/Tunneling No -Circular Undermining No -Wound/Ulcer Outcome Not Healed -Ulcer Cleansing Rinsed/ Irrigated with Saline -Foul Odor after Cleansing No -Bioengineered Tissue No -Bleeding Controlled with Pressure -Treatment Response Procedure Tolerated Well -Offloading Yes -Type of Offloading Knee Walker -Debridement - Bone, 1st 20sq cm Yes -Wound Comment(s) Pain Scale: 0-10 Numeric Is Patient Pain Free? Yes - Nurse 3 - General Ulcer D/C NN Start: 08/09/24 09:55 Freq: Status: Active Protocol: Activity Type Activity Date Activity User E-sign Co-sign Detail Recorded Client Recorded Date Recorded By Document 08/09/24 10:57 CP [id number] 08/09/24 11:00 CP Document 08/16/24 13:48 ML [id number] 08/16/24 13:50 ML Document 08/23/24 10:01 KW [id number] 08/23/24 10:02 KW 08/09/24 08/16/24 08/23/24 10:57 13:48 10:01 Wound Care Center Nurse 3 #5 RT 4TH TOE AMP SITE -Ulcer Cleansing Rinsed/ Irrigated with Saline -Foul Odor after Cleansing No -Other Dressing betadine BETADINE SOAKED betadine soaked GUAZE gauze -Primary Dressing Covered/Secured with Dry Gauze & Dry Gauze, Dry Gauze & Roll Gauze Secured with Roll Gauze, Tape Secured with Tape Right -Compression Wrap Far[place] Wrap [place] Wrap Pain Scale: 0-10 Numeric Is Patient Pain Free? 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 All findings were discussed with the patient. All questions were answered to the patient's satisfaction. Excisional debridement down to and including subcutaneous tissue, muscle, fascia and bone of the right foot full-thickness wound with a number 5 mm dermal curette without incident. Predebridement measurement was 4.0 x 0.8 x 4.0 cm. Postdebridement measurement is 4.2 x 0.9 x 5.2 cm. Patient will continue his antibiotic as written. He will continue daily dressing changes. Educated the patient on strict blood sugar control. Will begin authorization of the patient's insurance for a negative pressure wound VAC prior to any HBO dives if improved. Follow-up at the wound care center with Dr. Jiang in 1 week. (2) Acute painful diabetic polyneuropathy: CODE(S): E11.42 - Type 2 diabetes mellitus with diabetic polyneuropathy
--- NOTE | 2024-08-23 14:45 | WC ---
PHOTO 08/23/24 Right 4th Toe
[2024-08-30 09:56] VITALS: BP 178/91; PULSE 89; RESP 18; TEMP 35.7; BMI 48.2
--- NOTE | 2024-08-30 12:10 | PCM.WC.PN ---
History of Present Illness Date of Service: 08/30/24 Chief Complaint: Right foot full-thickness wound History of Wound: Mr. Ruelas is a very pleasant 39-year-old male with diabetes coming wound care center today for evaluation for HBO therapy. He started with a blister on his foot after moving about 1.5 months ago. 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 Hood, control director for partial ray amputation to the fourth metatarsal right foot. His operative cultures were positive for proteus, MRSE, MS-CoNS, and strep which he was treated with vanc/unasyn then discharged home on Linezolid and Augmentin (he was seen inpatient by ID). He developed a full-thickness wound post op. He then was admitted to [facility] for CHF and lung exacerbations. He was discharged and referred to the wound care center by his primary doctor. Patient is a diabetic and has had blood sugars around 160 to 170 mg/dL. He is now seeing Dr. Jiang at the wound center for management of his right foot ulcer. He has history of foot ulcers on left foot/great toe, diabetic polyneuropathy, HTN, hyperlipidemia, GERD, Gastroparesis, obesity and CHF. With his most recent hospitalization at [facility], he had a cardiac echo with EF 55-60%. A CXRY that showed Borderline cardiomegaly with interstitial and alveolar haziness bilaterally, could represent mild pulmonary venous congestion. Progress of Wound: Right foot ulcer is stable. Wound care is currently Betadine dressing changes daily. Subjective Subjective Mr. Ruelas is a 39-year-old diabetic male presented wound care center today for follow-up evaluation of fourth digit amputation full-thickness wound. He has been doing daily dressing changes with daily Betadine paint gauze to the right foot full-thickness wound. He has followed up with endocrinology and is on a [employer] blood sugar monitoring device. He states that his blood sugar is around 180 and constant. He has gone his blood sugar down from high 300s and is doing well. He states he can notice a difference in how he feels with a lower blood sugar. He has been very grateful for his care. He is following up with pain management next week. Denies trauma. Denies constitutional symptoms. No other pedal complaints at this time. Objective Data Objective Data Vital Signs: Vital Signs Temp Pulse Resp BP O2 Del Method 96.2 F L 89 18 178/91 H Room Air 08/30/24 09:56 08/30/24 09:56 08/30/24 09:56 08/30/24 09:56 08/30/24 09:56 Oxygen Delivery Method Room Air Weight: 166.015 kg Body Mass Index (BMI) 48.2 Lab / Micro Data Micro: Microbiology 08/09/24 10:33 Ulcer, Decubitus - Right Foot Gram Stain - Final 08/09/24 10:33 Ulcer, Decubitus - Right Foot Wound Culture - Final No growth aerobically. 08/09/24 10:33 Ulcer, Decubitus - Right Foot Anaerobic Culture - Final No growth in 5 days. Physical Exam Narrative Vascular: DP and PT pulses are palpable to the right lower extremity. CFT is brisk. No erythema to the right foot. Nonpitting edema to the right foot and ankle. Neurological: Light touch intact. Protective station is diminished. Patient does respond to painful stimuli. Dermatological: Full-thickness wound at the level of the status post fourth ray amputation to the right foot measuring 3.8 x 0.8 x 2.8 cm. No probe to bone.. Sanguinous drainage appreciated. No malodor. No purulent drainage noted. Excisional debridement down to and including subcutaneous tissue, muscle, fascia of the right foot full-thickness wound with a number 5 mm dermal curette without incident. Predebridement measurement was 3.7 x 0.6 x 2.5 cm. Cm. Postdebridement measurement is 3.8 x 0.8 x 2.8 cm. Musculoskeletal: Muscle strength is 5 out of 5 in all quadrants to the right lower extremity. No pain on palpation of the full-thickness wound. No pain with calf pressure. Debridement Note Debridement Note Debridement Free Text: Excisional debridement down to and including subcutaneous tissue, muscle, fascia of the right foot full-thickness wound with a number 5 mm dermal curette without incident. Predebridement measurement was 3.7 x 0.6 x 2.5 cm. Cm. Postdebridement measurement is 3.8 x 0.8 x 2.8 cm. Post-Debridement Measurements and Additional Note: Post-Debridement Measurements/Treatment WC - Nurse 1 - General Ulcer Assessment Start: 08/09/24 09:55 Freq: Status: Active Protocol: WC.LOWEXT Activity Type Activity Date Activity User E-sign Co-sign Detail Recorded Client Recorded Date Recorded By Document 08/09/24 09:55 KW [id number] 08/09/24 10:16 KW Document 08/16/24 12:31 DS [id number] 08/16/24 12:34 DS Edit Result 08/16/24 12:31 DS (1) [id number] 08/16/24 12:56 DS Document 08/23/24 09:31 DL [id number] 08/23/24 09:33 DL Document 08/30/24 09:56 KW [id number] 08/30/24 10:05 KW (1) Pulse Rate (60-100) => 83 Blood Pressure (90/60-120/80) => 189/86 H Blood Pressure Mean (mm Hg) => 120 08/09/24 08/16/24 08/23/24 09:55 12:31 09:31 WC - Today's Visit Information Type of service Initial Visit Follow-up Visit Follow-up Visit (Physician/ELECTRICAL ENGINEERING DRAFTSPERSON (Physician/ELECTRICAL ENGINEERING DRAFTSPERSON ) ) Arrival Mode Ambulatory Ambulatory, Ambulatory, Other Other Arrival Mode (Other) rolator Patient Identification Verified (Name & Yes Yes Yes ) Patient Requires Transmission-Based No No Precautions Height and Weight Height 6 ft 1 in Weight 166.015 kg Weight in Pounds 366.0 lbs Weight Measurement Method Estimated by Patient Body Mass Index (BMI) 48.2 48.2 48.2 BMI Classification Obese Obese Obese Vital Signs Temperature (97.8 F-99.1 F) 96.6 F L 96.0 F L 96.8 F L Temperature Source Temporal Temporal Temporal Pulse Rate (60-100) 89 83 95 Pulse Location Monitor Monitor Monitor Respiratory Rate (12-18) 18 18 18 Respiratory rate source Observation Observation Observation Oxygen Delivery Method Room Air Room Air Room Air Blood Pressure (90/60-120/80) 199/65 H 189/86 H 149/96 H Blood Pressure Mean (mm Hg) 109 120 113 Source Monitor Monitor Monitor Position Semi-Fowlers Sitting Sitting Blood Pressure Location Left Forearm Left Arm Left Arm History Since Last Visit- (Skip if this is Patient's initial visit) Have you changed medications since your No No last visit? Any new allergies or adverse reactions No No Had a fall/change in ADL's that may No No increase risk of falls Signs or symptoms of abuse and/or No No neglect since last visit Have you been in the hospital since your Yes No last visit? Has dressing in place as prescribed Yes Yes Has compression in place as prescribed N/A Yes Has offloadiing in place as prescribed Yes Yes Experienced any changes in pain level or No No management Left Footwear Regular Shoe Regular Shoe Right Footwear Surgical Shoe Surgical Shoe with pressure with pressure relief insole relief insole Pain Scale: 0-10 Numeric Is Patient Pain Free? No Yes Yes RT FOOT -Description Burning -Comments TINGLING 08/30/24 09:56 WC - Today's Visit Information Type of service Initial Visit Arrival Mode Other Arrival Mode (Other) knee roller Patient Identification Verified (Name & Yes ) Patient Requires Transmission-Based Precautions Height and Weight Height Weight Weight in Pounds Weight Measurement Method Body Mass Index (BMI) 48.2 BMI Classification Obese Vital Signs Temperature (97.8 F-99.1 F) 96.2 F L Temperature Source Temporal Pulse Rate (60-100) 89 Pulse Location Monitor Respiratory Rate (12-18) 18 Respiratory rate source Observation Oxygen Delivery Method Room Air Blood Pressure (90/60-120/80) 178/91 H Blood Pressure Mean (mm Hg) 120 Source Monitor Position Semi-Fowlers Blood Pressure Location Left Arm History Since Last Visit- (Skip if this is Patient's initial visit) Have you changed medications since your No last visit? Any new allergies or adverse reactions No Had a fall/change in ADL's that may No increase risk of falls Signs or symptoms of abuse and/or No neglect since last visit Have you been in the hospital since your No last visit? Has dressing in place as prescribed Yes Has compression in place as prescribed Yes Has offloadiing in place as prescribed Yes Experienced any changes in pain level or No management Left Footwear Regular Shoe Right Footwear Surgical Shoe with pressure relief insole Pain Scale: 0-10 Numeric Is Patient Pain Free? Yes RT FOOT -Description Burning -Comments pain and burning when at rest 08/16/24 12:33 Nursing Note by Leta Hylton went to ER 08/14/24 - was given Cipro to take has not started was finishing up previous antibiotic Initialized on 08/16/24 12:33 - END OF NOTE WC - Nurse 1 - General Ulcer Measurement Start: 08/09/24 09:55 Freq: Status: Active Protocol: Activity Type Activity Date Activity User E-sign Co-sign Detail Recorded Client Recorded Date Recorded By Document 08/09/24 09:55 KW [id number] 08/09/24 10:16 KW Document 08/16/24 12:34 DS [id number] 08/16/24 12:52 DS Document 08/23/24 09:31 DL [id number] 08/23/24 09:33 DL Document 08/30/24 09:56 KW [id number] 08/30/24 10:05 KW 08/09/24 08/16/24 08/23/24 09:55 12:34 09:31 Wound Center Nurse 1 #5 RT 4TH TOE AMP SITE -Current Size (cm) - Length 0.1 11.0 2.5 -Current Size (cm) - Width 0.1 1.1 0.1 -Current Size (cm) - Depth 0.1 1.5 3.5 -Total Square Cm 0.01 12.10 0.25 -Date of Last Picture (Recall this 08/09/24 08/23/24 field) -Photo Taken No Yes -Epithelialization Small 1-33% -Tunneling No No -Undermining/Tunneling No No -Circular Undermining No No -Exudate Amt Small Large -Exudate Type Serosanguineous Serosanguineous -Wound Margin Well Defined, Distinct, Distinct, Not Attached Outline Outline Attached Attached -Granulation Amt -Granulation Quality -Slough/Fibrin Yes -Necrosis Amt Small (1-33%) -Necrotic Tissue Type Adherent Slough -Texture (Bev-wound Skin Appearance) Assessed Assessed Assessed -Moisture (Bev-wound Skin Appearance) Assessed,Dry/ Assessed Assessed, Scaly Maceration -Color (Bev-wound Skin Appearance) Assessed Assessed Assessed -Temperature (Bev-wound Skin No Abnormality No Abnormality No Abnormality Appearance) (Pt Warm) (Pt Warm) (Pt Warm) -Tenderness on Palpation (Bev-wound No No Skin Appearance) -Ulcer Cleansing Soap and Water Soap and Water Soap and Water -Foul Odor after Cleansing No No No -Anesthetic Used 5% Lidocaine 4% Lidocaine Gel Solution -Wound Comment(s) SUTURES INTACT, ABOUT 22 Right Calf (cm) 48.5 Right Ankle (cm) 26 Left Calf (cm) 46 Left Ankle (cm) 28 08/30/24 09:56 Wound Center Nurse 1 #5 RT 4TH TOE AMP SITE -Current Size (cm) - Length 3 -Current Size (cm) - Width 0.5 -Current Size (cm) - Depth 3.1 -Total Square Cm 1.5 -Date of Last Picture (Recall this 08/30/24 field) -Photo Taken -Epithelialization -Tunneling -Undermining/Tunneling -Circular Undermining -Exudate Amt Small -Exudate Type Serosanguineous -Wound Margin Distinct, Outline Attached -Granulation Amt Large (67-100%) -Granulation Quality Red -Slough/Fibrin -Necrosis Amt Small (1-33%) -Necrotic Tissue Type Adherent Slough -Texture (Bev-wound Skin Appearance) Assessed,Callus -Moisture (Bev-wound Skin Appearance) Assessed, Maceration -Color (Bev-wound Skin Appearance) Assessed -Temperature (Bev-wound Skin No Abnormality Appearance) (Pt Warm) -Tenderness on Palpation (Bev-wound No Skin Appearance) -Ulcer Cleansing Soap and Water -Foul Odor after Cleansing No -Anesthetic Used 4% Lidocaine Solution -Wound Comment(s) Right Calf (cm) Right Ankle (cm) Left Calf (cm) Left Ankle (cm) WC - Nurse 2 - General Ulcer CM Notes Start: 08/09/24 09:55 Freq: Status: Active Protocol: Activity Type Activity Date Activity User E-sign Co-sign Detail Recorded Client Recorded Date Recorded By Document 08/09/24 10:28 [id number] 08/09/24 10:46 Document 08/16/24 12:59 [facility] [id number] 08/16/24 13:10 [facility] Document 08/16/24 13:40 [id number] 08/16/24 13:42 Document 08/23/24 09:47 [id number] 08/23/24 09:51 Document 08/30/24 10:28 [id number] 08/30/24 10:30 08/09/24 08/16/24 08/16/24 10:28 12:59 13:40 Wound Center Nurse 2 #5 RT 4TH TOE AMP SITE -Time 10:38 13:01 13:41 -Correct Patient Yes Yes Yes -Correct Side, Site, Position Yes Yes Yes -Correct Procedure Yes Yes No -Procedure Performed Yes Yes No -Type of Procedure Debridement Debridement -Clinical Debridement Bone Bone -Tissue Removed Non-viable tissue -Post Debridement (cm) - Length 7 5 -Post Debridement (cm) - Width 1.5 1.4 -Post Debridement (cm) - Depth 4.0 3 -Total Square (Post) (cm) 10.5 7.0 -Area of Debridement (cm) - Length 7 5 -Area of Debridement (cm) - Width 1.5 1.4 -Total Square (Area) (cm) 10.5 7.0 -Tunneling No No No -Undermining/Tunneling No No No -Circular Undermining No No No -Wound/Ulcer Outcome Not Healed Not Healed Not Healed -Ulcer Cleansing Rinsed/ Rinsed/ Irrigated with Irrigated with Saline Saline -Foul Odor after Cleansing No No No -Bioengineered Tissue No No No -Bleeding Controlled with Pressure Pressure NA -Treatment Response Procedure Procedure Tolerated Well Tolerated Well -Offloading Yes -Type of Offloading Surgical Shoe -Debridement - Muscle / Fascia, 1st 20sq cm -Debridement - Bone, 1st 20sq cm Yes Yes -Wound Comment(s) sutures removed HBO CONSULT TODAY Pain Scale: 0-10 Numeric Is Patient Pain Free? Yes Yes Yes 08/23/24 08/30/24 09:47 10:28 Wound Center Nurse 2 #5 RT 4TH TOE AMP SITE -Time 09:47 10:29 -Correct Patient Yes Yes -Correct Side, Site, Position Yes Yes -Correct Procedure Yes Yes -Procedure Performed Yes Yes -Type of Procedure Debridement Debridement -Clinical Debridement Bone Muscle / Fascia -Tissue Removed Non-viable Muscle tissue -Post Debridement (cm) - Length 4.2 3.8 -Post Debridement (cm) - Width 0.9 0.8 -Post Debridement (cm) - Depth 5.2 2.8 -Total Square (Post) (cm) 3.78 3.04 -Area of Debridement (cm) - Length 4.2 3.8 -Area of Debridement (cm) - Width 0.9 0.8 -Total Square (Area) (cm) 3.78 3.04 -Tunneling No No -Undermining/Tunneling No No -Circular Undermining No No -Wound/Ulcer Outcome Not Healed Not Healed -Ulcer Cleansing Rinsed/ Rinsed/ Irrigated with Irrigated with Saline Saline -Foul Odor after Cleansing No No -Bioengineered Tissue No No -Bleeding Controlled with Pressure Pressure -Treatment Response Procedure Procedure Tolerated Well Tolerated Well -Offloading Yes Yes -Type of Offloading Knee Walker Surgical Shoe -Debridement - Muscle / Fascia, 1st Yes 20sq cm -Debridement - Bone, 1st 20sq cm Yes -Wound Comment(s) Pain Scale: 0-10 Numeric Is Patient Pain Free? Yes Yes WC - Nurse 3 - General Ulcer D/C NN Start: 08/09/24 09:55 Freq: Status: Active Protocol: Activity Type Activity Date Activity User E-sign Co-sign Detail Recorded Client Recorded Date Recorded By Document 08/09/24 10:57 CP [id number] 08/09/24 11:00 CP Document 08/16/24 13:48 ML [id number] 08/16/24 13:50 ML Document 08/23/24 10:01 KW [id number] 08/23/24 10:02 KW Document 08/30/24 10:45 GM [id number] 08/30/24 10:46 GM 08/09/24 08/16/24 08/23/24 10:57 13:48 10:01 Wound Care Center Nurse 3 #5 RT 4TH TOE AMP SITE -Ulcer Cleansing Rinsed/ Irrigated with Saline -Foul Odor after Cleansing No -Other Dressing betadine BETADINE SOAKED betadine soaked GUAZE gauze -Primary Dressing Covered/Secured with Dry Gauze & Dry Gauze, Dry Gauze & Roll Gauze Secured with Roll Gauze, Tape Secured with Tape Right -Compression Wrap Farhat Wrap Farhat Wrap Pain Scale: 0-10 Numeric Is Patient Pain Free? No Yes Yes RT FOOT -Duration (hours) Chronic -Pain Behavior No Change in Behavior -Alleviating Factors/Interventions Distraction -Effectiveness of Alleviating Factor/ Moderately Intervention effective WC - Visit Discharge Discharge Condition Stable Stable Ambulatory Status Ambulatory Ambulatory Transportation Private Auto Private Auto Medication Reconcilliation completed & No No provided to patient/care provider Clinical Summary of Care Provided Yes Yes Notes: knee roller #5 RT 4TH TOE AMP SITE -Ulcer Cleansing -Foul Odor after Cleansing -Primary Dressing Covered/Secured with Right -Lotion applied to leg before compression wrap -Compression Wrap 08/30/24 10:45 Wound Care Center Nurse 3 #5 RT 4TH TOE AMP SITE -Ulcer Cleansing -Foul Odor after Cleansing -Other Dressing -Primary Dressing Covered/Secured with Right -Compression Wrap Pain Scale: 0-10 Numeric Is Patient Pain Free? Yes RT FOOT -Duration (hours) -Pain Behavior -Alleviating Factors/Interventions -Effectiveness of Alleviating Factor/ Intervention WC - Visit Discharge Discharge Condition Stable Ambulatory Status Walker Transportation Private Auto Medication Reconcilliation completed & provided to patient/care provider Clinical Summary of Care Provided Notes: #5 RT 4TH TOE AMP SITE -Ulcer Cleansing Not Cleansed -Foul Odor after Cleansing No -Primary Dressing Covered/Secured with Dry Gauze & Roll Gauze, Secured with Tape Right -Lotion applied to leg before No compression wrap -Compression Wrap Farhat Wrap Assessment/Plan Assessment/Plan (1) 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 All findings were discussed with the patient. All questions were answered to the patient's satisfaction. Excisional debridement down to and including subcutaneous tissue, muscle, fascia of the right foot full-thickness wound with a number 5 mm dermal curette without incident. Predebridement measurement was 3.7 x 0.6 x 2.5 cm. Cm. Postdebridement measurement is 3.8 x 0.8 x 2.8 cm. The right foot was wiped clean and patted dry. Betadine soaked gauze was applied to the full-thickness wound followed by dry sterile dressing and compression wrap. Patient will be given a last prescription for Percocet 5/325#14 pills twice daily for 7 days. Patient will follow-up with pain management next week. Educated the patient on strict blood sugar control. Will begin authorization of the patient's insurance for a negative pressure wound VAC prior to any HBO dives at the beginning of the month. Patient will follow-up with Dilcia the nurse practitioner regarding HBO. Follow-up at the wound care center with Dr. Jiang in 1 week. (2) Acute painful diabetic polyneuropathy: CODE(S): E11.42 - Type 2 diabetes mellitus with diabetic polyneuropathy
== END 2024-09-01 23:59 | disposition home or self-care (01) ==
LOC: WC 10:00
PROVIDERS: PCP Nurse Practitioner Family; Referring Provider Nurse Practitioner Family; Visit Provider Podiatrist Foot & Ankle Surgery
DX: E11.621 Type 2 diabetes mellitus with foot ulcer (principal); L97.516 Non-pressure chronic ulcer of other part of right foot with bone involvement without evidence of necrosis; M86.8X7 Other osteomyelitis, ankle and foot; I50.9 Heart failure, unspecified; I11.0 Hypertensive heart disease with heart failure; Z68.42 Body mass index [BMI] 45.0-49.9, adult; E11.43 Type 2 diabetes mellitus with diabetic autonomic (poly)neuropathy; E11.42 Type 2 diabetes mellitus with diabetic polyneuropathy; Z79.4 Long term (current) use of insulin; E11.69 Type 2 diabetes mellitus with other specified complication; K31.84 Gastroparesis; E78.5 Hyperlipidemia, unspecified; E66.9 Obesity, unspecified; F17.290 Nicotine dependence, other tobacco product, uncomplicated; Z79.84 Long term (current) use of oral hypoglycemic drugs; Z79.899 Other long term (current) drug therapy
CPT/HCPCS: 11043; 11044; 87070; 87075; 87205; 93005; 99214; G0463

== ENCOUNTER → 2024-09-26 | Outpatient (CLI) | payer MEDICARE, SELFPAY ==
[2024-09-26 13:57] VITALS: PULSE 108; PULSE 109; PULSE 112; PULSE 114; PULSE 115; O2SAT 90; O2SAT 96; O2SAT 98
--- NOTE | 2024-09-27 11:03 | PCM.PSN.6M ---
PSN 6 Minute Walk Test 6 Minute Walk Test 6 Minute Walk Test: 6 Minute Walk Test PSN:6-Minute Walk Test Start: 09/26/24 13:57 Freq: Status: Active Protocol: [id number].6MINW Document 09/26/24 13:57 EW (Rec: 09/26/24 14:00 EW [id number]) 6 Minute Walk Test Date Performed 09/26/24 Time Performed 13:45 Height 6 ft 1 in Weight: 350 lb Weight in Pounds 350.[address]: george Assistive device None used: Pre-test Oxygen Delivery Room Air Method Pulse Ox (%) 98 Pulse Rate (60-100 108 H beats/min) Dyspnea Liz Scale ( 2 0-10) Exertion Liz Scale 12 (6-20) 1st minute Oxygen Delivery Room Air Method Pulse Ox (%) 90 Pulse Rate (60-100 109 H beats/min) 2nd minute Oxygen Delivery Room Air Method Pulse Ox (%) 96 Pulse Rate (60-100 108 H beats/min) 3rd minute Oxygen Delivery Room Air Method Pulse Ox (%) 98 Pulse Rate (60-100 115 H beats/min) 4th minute Oxygen Delivery Room Air Method Pulse Ox (%) 96 Pulse Rate (60-100 112 H beats/min) 5th minute Oxygen Delivery Room Air Method Pulse Ox (%) 98 Pulse Rate (60-100 115 H beats/min) 6th minute Oxygen Delivery Room Air Method Pulse Ox (%) 98 Pulse Rate (60-100 114 H beats/min) Dyspnea Liz Scale ( 1 0-10) Exertion Liz Scale 15 (6-20) Post-test Oxygen Delivery Room Air Method Pulse Ox (%) 98 Pulse Rate (60-100 115 H beats/min) Full Laps Walked 10 Partial Lap, Number 0 of Tiles Walked Total Distance 590 Walked (ft) Interpretation Interpretation: The patient ambulated 590 feet over the course of 6 minutes beginning on room air without assistive devices. Pretesting oxygen saturation was noted to be 98% on room air. With ambulation, the rea oxygen saturation was 96%. Although there was evidence of impaired walk distance, there was no significant exertional oxygen desaturation. Recommendations Recommendations: There is no indication for the use of supplemental oxygen at this time.
== END | disposition home or self-care (01) ==
LOC: PSN 12:54
PROVIDERS: PCP Nurse Practitioner Family; Referring Provider Nurse Practitioner Acute Care; Visit Provider Nurse Practitioner Acute Care
DX: R06.02 Shortness of breath (principal)
CPT/HCPCS: 94618

== ENCOUNTER 2024-09-27 09:45 | Outpatient (RCR) | payer MEDICARE, SELFPAY ==
[2024-09-02 01:25] VITALS: BP 178/91; PULSE 89; RESP 18; TEMP 35.7; BMI 48.2
[2024-09-06 09:56] VITALS: BP 185/90; PULSE 79; RESP 16; TEMP 35.6; BMI 48.2
--- NOTE | 2024-09-06 11:05 | PCM.WC.PN ---
History of Present Illness Date of Service: 09/06/24 Chief Complaint: Right foot full-thickness wound History of Wound: Mr. Ruelas is a very pleasant 39-year-old male with diabetes coming wound care center today for evaluation for HBO therapy. He started with a blister on his foot after moving about 1.5 months ago. 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 Hood, senior health consultant for partial ray amputation to the fourth metatarsal right foot. His operative cultures were positive for proteus, MRSE, MS-CoNS, and strep which he was treated with vanc/unasyn then discharged home on Linezolid and Augmentin (he was seen inpatient by ID). He developed a full-thickness wound post op. He then was admitted to [facility] for CHF and lung exacerbations. He was discharged and referred to the wound care center by his primary doctor. Patient is a diabetic and has had blood sugars around 160 to 170 mg/dL. He is now seeing Dr. Jiang at the wound center for management of his right foot ulcer. He has history of foot ulcers on left foot/great toe, diabetic polyneuropathy, HTN, hyperlipidemia, GERD, Gastroparesis, obesity and CHF. With his most recent hospitalization at [facility], he had a cardiac echo with EF 55-60%. A CXRY that showed Borderline cardiomegaly with interstitial and alveolar haziness bilaterally, could represent mild pulmonary venous congestion. Progress of Wound: Stable full-thickness wound right foot. Subjective Subjective Mr. Ruelas is a 39-year-old diabetic male presented wound care center today for follow-up evaluation of full-thickness wound status post fourth ray resection by an outside provider. Patient has been compliant with dressing changes. His blood sugar has been well-controlled. He is not weightbearing with knee scooter. He is doing dressing changes as discussed. He is following up with his material cutter on 09/18/2024. HBO pending. Denies trauma. Denies constitutional symptoms. No other pedal complaints at this time. Objective Data Objective Data Vital Signs: Vital Signs Temp Pulse Resp BP 96.0 F L 79 16 185/90 H 09/06/24 09:56 09/06/24 09:56 09/06/24 09:56 09/06/24 09:56 Weight: 166.015 kg Body Mass Index (BMI) 48.2 Physical Exam Narrative Vascular: DP and PT pulses are palpable to the right lower extremity. CFT is brisk. No erythema to the right foot. Nonpitting edema to the right foot and ankle. Neurological: Light touch intact. Protective station is diminished. Patient does respond to painful stimuli. Dermatological: Full-thickness wound at the level of the status post fourth ray amputation to the right foot measuring 4.3 x 0.4 x 4.0 cm. No probe to bone.. Sanguinous drainage appreciated. No malodor. No purulent drainage noted. Excisional debridement down to and including subcutaneous tissue, muscle, fascia of the right foot full-thickness wound with a number 5 mm dermal curette without incident. Predebridement measurement was 4.3 x 0.3 x 3.5 cm. Postdebridement measurement is 4.3 x 0.4 x 4.0 cm. Musculoskeletal: Muscle strength is 5 out of 5 in all quadrants to the right lower extremity. No pain on palpation of the full-thickness wound. No pain with calf pressure. Debridement Note Debridement Note Debridement Free Text: Excisional debridement down to and including subcutaneous tissue, muscle, fascia of the right foot full-thickness wound with a number 5 mm dermal curette without incident. Predebridement measurement was 4.3 x 0.3 x 3.5 cm. Postdebridement measurement is 4.3 x 0.4 x 4.0 cm. Post-Debridement Measurements and Additional Note: Post-Debridement Measurements/Treatment - Nurse 1 - General Ulcer Assessment Start: 09/06/24 09:56 Freq: Status: Active Protocol: LARISSA.FELECIAEXCathy Activity Type Activity Date Activity User E-sign Co-sign Detail Recorded Client Recorded Date Recorded By Document 09/06/24 09:56 ML [id number] 09/06/24 10:01 ML 09/06/24 09:56 - Today's Visit Information Type of service Follow-up Visit (Physician/STITCH BONDING MACHINE TENDER HELPER ) Arrival Mode Ambulatory Transfer Assistance None Patient Identification Verified (Name & Yes ) Patient Requires Transmission-Based No Precautions Height and Weight Body Mass Index (BMI) 48.2 BMI Classification Obese Vital Signs Temperature (97.8 F-99.1 F) 96.0 F L Temperature Source Temporal Pulse Rate (60-100) 79 Pulse Location Monitor Respiratory Rate (12-18) 16 Respiratory rate source Observation Blood Pressure (90/60-120/80) 185/90 H Blood Pressure Mean (mm Hg) 121 Source Monitor Position Sitting Blood Pressure Location Right Arm History Since Last Visit- (Skip if this is Patient's initial visit) Have you changed medications since your No last visit? Any new allergies or adverse reactions No Had a fall/change in ADL's that may No increase risk of falls Signs or symptoms of abuse and/or No neglect since last visit Have you been in the hospital since your No last visit? Has dressing in place as prescribed Yes Has compression in place as prescribed Yes Has offloadiing in place as prescribed N/A Experienced any changes in pain level or No management Pain Scale: 0-10 Numeric Is Patient Pain Free? Yes - Nurse 1 - General Ulcer Measurement Start: 09/06/24 09:56 Freq: Status: Active Protocol: Activity Type Activity Date Activity User E-sign Co-sign Detail Recorded Client Recorded Date Recorded By Document 09/06/24 09:56 CHAPIN [id number] 09/06/24 10:01 ML 09/06/24 09:56 Wound Center Nurse 1 #5 RT 4TH TOE AMP SITE -Current Size (cm) - Length 3.5 -Current Size (cm) - Width 0.6 -Current Size (cm) - Depth 2 -Total Square Cm 2.10 -Exudate Amt Medium -Exudate Type Serosanguineous -Granulation Amt Medium (34-66%) -Slough/Fibrin Yes -Necrosis Amt Medium (34-66%) -Necrotic Tissue Type Adherent Slough -Texture (Bev-wound Skin Appearance) Assessed -Moisture (Bev-wound Skin Appearance) Assessed -Color (Bev-wound Skin Appearance) Assessed -Temperature (Bev-wound Skin No Abnormality Appearance) (Pt Warm) -Tenderness on Palpation (Bev-wound No Skin Appearance) -Ulcer Cleansing Rinsed/ Irrigated with Saline -Foul Odor after Cleansing No -Anesthetic Used 4% Lidocaine Solution - Nurse 2 - General Ulcer CM Notes Start: 09/06/24 09:56 Freq: Status: Active Protocol: Activity Type Activity Date Activity User E-sign Co-sign Detail Recorded Client Recorded Date Recorded By Document 09/06/24 10:22 HELIO [id number] 09/06/24 10:26 HELIO 09/06/24 10:22 Wound Center Nurse 2 -Time 10:23 -Correct Patient Yes -Correct Side, Site, Position Yes -Correct Procedure Yes -Procedure Performed Yes -Type of Procedure Debridement -Clinical Debridement Muscle / Fascia -Tissue Removed Muscle,Fascia -Post Debridement (cm) - Length 4.3 -Post Debridement (cm) - Width 0.4 -Post Debridement (cm) - Depth 4.0 -Total Square (Post) (cm) 1.72 -Area of Debridement (cm) - Length 4.3 -Area of Debridement (cm) - Width 0.4 -Total Square (Area) (cm) 1.72 -Tunneling No -Undermining/Tunneling No -Circular Undermining No -Wound/Ulcer Outcome Not Healed -Ulcer Cleansing Rinsed/ Irrigated with Saline -Foul Odor after Cleansing No -Bioengineered Tissue No -Bleeding Controlled with Pressure -Treatment Response Procedure Tolerated Well -Offloading Yes -Type of Offloading Knee Walker -Debridement - Muscle / Fascia, 1st Yes 20sq cm Pain Scale: 0-10 Numeric Is Patient Pain Free? Yes - Nurse 3 - General Ulcer D/C NN Start: 09/06/24 09:56 Freq: Status: Active Protocol: Activity Type Activity Date Activity User E-sign Co-sign Detail Recorded Client Recorded Date Recorded By Document 09/06/24 10:43 KW [id number] 09/06/24 10:44 KW 09/06/24 10:43 Wound Care Center Nurse 3 #5 RT 4TH TOE AMP SITE -Other Dressing betadine gauze packed -Primary Dressing Covered/Secured with Dry Gauze & Roll Gauze, Secured with Tape RLE -Compression Wrap Farhat Wrap Pain Scale: 0-10 Numeric Is Patient Pain Free? Yes - Visit Discharge Discharge Condition Stable Ambulatory Status Ambulatory Medication Reconcilliation completed & No provided to patient/care provider Clinical Summary of Care Provided Yes Notes: knee roller Assessment/Plan Assessment/Plan (1) Type 2 diabetes mellitus with foot ulcer: CODE(S): E11.621 - Type 2 diabetes mellitus with foot ulcer; L97.509 - Non-pressure chronic ulcer of other part of unspecified foot with unspecified severity QUALIFIERS: Diabetes mellitus long term care pharmacist insulin use: with assisted use Qualified Code(s): E11.621 - Type 2 diabetes mellitus with foot ulcer; L97.509 - Non-pressure chronic ulcer of other part of unspecified foot with unspecified severity; Z79.4 - [facility] (current) use of insulin PLAN: Patient was examined and evaluated. All findings were discussed with the patient. All questions were answered to the patient's satisfaction. Excisional debridement down to and including subcutaneous tissue, muscle, fascia of the right foot full-thickness wound with a number 5 mm dermal curette without incident. Predebridement measurement was 4.3 x 0.3 x 3.5 cm. Postdebridement measurement is 4.3 x 0.4 x 4.0 cm. The right foot was wiped clean and patted dry. Betadine paint with Betadine soaked gauze was placed in the full-thickness wound followed by dry sterile dressing and compression wrap. Patient will continue daily dressing changes and be nonweightbearing with clinic assistant of a new scooter to the right lower extremity. Patient will continue blood sugar control as he is doing so already. He will follow-up with his material cutter for clearance for HBO on 09/18/2024. HBO is pending. Will begin authorization for skin graft substitute to the right lower extremity full-thickness wound to aid in healing. Follow-up at the wound care center with Dr. Jiang in 1 week. 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
--- NOTE | 2024-09-06 14:58 | WC ---
PHOTO 09/06/24 RIGHT / WEB SPACE POST OP
[2024-09-13 09:29] VITALS: BP 158/103; PULSE 95; RESP 16; BMI 48.2
--- NOTE | 2024-09-13 13:01 | PN.PCM_ITS ---
History of Present Illness Date of Service: 09/06/24 Chief Complaint: Right foot full-thickness wound History of Wound: Mr. Ruelas is a very pleasant 39-year-old male with diabetes coming wound care center today for evaluation for HBO therapy. He started with a blister on his foot after moving about 1.5 months ago. 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 Hood, pre sales technical consultant for partial ray amputation to the fourth metatarsal right foot. His operative cultures were positive for proteus, MRSE, MS-CoNS, and strep which he was treated with vanc/unasyn then discharged home on Linezolid and Augmentin (he was seen inpatient by ID). He developed a full-thickness wound post op. He then was admitted to [facility] for CHF and lung exacerbations. He was discharged and referred to the wound care center by his primary doctor. Patient is a diabetic and has had blood sugars around 160 to 170 mg/dL. He is now seeing Dr. Jiang at the wound center for management of his right foot ulcer. He has history of foot ulcers on left foot/great toe, diabetic polyneuropathy, HTN, hyperlipidemia, GERD, Gastroparesis, obesity and CHF. With his most recent hospitalization at [facility], he had a cardiac echo with EF 55-60%. A CXRY that showed Borderline cardiomegaly with interstitial and alveolar haziness bilaterally, could represent mild pulmonary venous congestion. Progress of Wound: Stable full-thickness wound right foot. Subjective Subjective Mr. Ruelas is a 39-year-old diabetic male presented wound care center today for follow-up evaluation of full-thickness wound status post fourth ray resection to the right lower extremity. Patient has been doing dressing changes as ordered. His blood sugar has been well-controlled. He has not been approved for HBO at this time. But he has been approved for amniotic skin graft substitutes. Will begin those today. He denies trauma. Denies constitutional symptoms. No other pedal complaints at this time. Objective Data Objective Data Vital Signs: Vital Signs Temp Pulse Resp BP O2 Del Method 96.0 F L 95 16 158/103 H Room Air 09/06/24 09:56 09/13/24 09:29 09/13/24 09:29 09/13/24 09:29 09/13/24 09:29 Oxygen Delivery Method Room Air Weight: 166.015 kg Body Mass Index (BMI) 48.2 Physical Exam Narrative Vascular: DP and PT pulses are palpable to the right lower extremity. CFT is brisk. No erythema to the right foot. Nonpitting edema to the right foot and ankle. Neurological: Light touch intact. Protective station is diminished. Patient does respond to painful stimuli. Dermatological: Full-thickness wound at the level of the status post fourth ray amputation to the right foot measuring 3.0 x 0.4 x 3.5 cm. No probe to bone. Sanguinous drainage appreciated. No malodor. No purulent drainage noted. Excisional debridement down to and including subcutaneous tissue, muscle, fascia of the right foot full-thickness wound with a number 5 mm dermal curette without incident. Predebridement measurement was 2.9 x 0.3 x 3.2 cm. Postdebridement measurement is 3.0 x 0.4 x 3.5 cm. EpiFix 4.0 x 4.5 cm was applied to the right full-thickness ulceration with 100% use. First application. The graft site was free and clear of any infection. The wound/skin graft substitute was dressed with nonadherent bandage secured in place with Steri-Strips followed by bolster dressing as well as a double layer Tubigrip. Musculoskeletal: Muscle strength is 5 out of 5 in all quadrants to the right lower extremity. No pain on palpation of the full-thickness wound. No pain with calf pressure. Debridement Note Debridement Note Debridement Free Text: Excisional debridement down to and including subcutaneous tissue, muscle, fascia of the right foot full-thickness wound with a number 5 mm dermal curette without incident. Predebridement measurement was 2.9 x 0.3 x 3.2 cm. Postdebridement measurement is 3.0 x 0.4 x 3.5 cm. EpiFix 4.0 x 4.5 cm was applied to the right full-thickness ulceration with 100% use. First application. The graft site was free and clear of any infection. The wound/skin graft substitute was dressed with nonadherent bandage secured in place with Steri-Strips followed by bolster dressing as well as a double layer Tubigrip. Post-Debridement Measurements and Additional Note: Post-Debridement Measurements/Treatment WC - Nurse 1 - General Ulcer Assessment Start: 09/06/24 09:56 Freq: Status: Active Protocol: .LOWEXT Activity Type Activity Date Activity User E-sign Co-sign Detail Recorded Client Recorded Date Recorded By Document 09/06/24 09:56 ML [id number] 09/06/24 10:01 ML Document 09/13/24 09:29 KW [id number] 09/13/24 09:36 KW 09/06/24 09/13/24 09:56 09:29 - Today's Visit Information Type of service Follow-up Visit Follow-up Visit (Physician/SALES APPLICATIONS ENGINEER (Physician/SALES APPLICATIONS ENGINEER ) ) Arrival Mode Ambulatory Ambulatory, Other Arrival Mode (Other) knee roller Transfer Assistance None Patient Identification Verified (Name & Yes Yes ) Patient Requires Transmission-Based No Precautions Height and Weight Body Mass Index (BMI) 48.2 48.2 BMI Classification Obese Obese Vital Signs Temperature (97.8 F-99.1 F) 96.0 F L Temperature Source Temporal Temporal Pulse Rate (60-100) 79 95 Pulse Location Monitor Monitor Respiratory Rate (12-18) 16 16 Respiratory rate source Observation Observation Oxygen Delivery Method Room Air Blood Pressure (90/60-120/80) 185/90 H 158/103 H Blood Pressure Mean (mm Hg) 121 121 Source Monitor Monitor Position Sitting Semi-Fowlers Blood Pressure Location Right Arm Left Arm History Since Last Visit- (Skip if this is Patient's initial visit) Have you changed medications since your No No last visit? Any new allergies or adverse reactions No No Had a fall/change in ADL's that may No No increase risk of falls Signs or symptoms of abuse and/or No No neglect since last visit Have you been in the hospital since your No No last visit? Has dressing in place as prescribed Yes Yes Has compression in place as prescribed Yes Yes Has offloadiing in place as prescribed N/A Yes Experienced any changes in pain level or No No management Left Footwear Regular Shoe Right Footwear Surgical Shoe with pressure relief insole Pain Scale: 0-10 Numeric Is Patient Pain Free? Yes Yes - Nurse 1 - General Ulcer Measurement Start: 09/06/24 09:56 Freq: Status: Active Protocol: Activity Type Activity Date Activity User E-sign Co-sign Detail Recorded Client Recorded Date Recorded By Document 09/06/24 09:56 ML [id number] 09/06/24 10:01 ML Document 09/13/24 09:29 KW [id number] 09/13/24 09:36 KW 09/06/24 09/13/24 09:56 09:29 Wound Center Nurse 1 #5 RT 4TH TOE AMP SITE -Current Size (cm) - Length 3.5 3 -Current Size (cm) - Width 0.6 1 -Current Size (cm) - Depth 2 1.3 -Total Square Cm 2.10 3 -Exudate Amt Medium Medium -Exudate Type Serosanguineous Serosanguineous -Wound Margin Distinct, Outline Attached -Granulation Amt Medium (34-66%) Large (67-100%) -Granulation Quality Red -Slough/Fibrin Yes -Necrosis Amt Medium (34-66%) -Necrotic Tissue Type Adherent Slough -Texture (Bev-wound Skin Appearance) Assessed Assessed -Moisture (Bev-wound Skin Appearance) Assessed Assessed, Maceration -Color (Bev-wound Skin Appearance) Assessed Assessed -Temperature (Bev-wound Skin No Abnormality No Abnormality Appearance) (Pt Warm) (Pt Warm) -Tenderness on Palpation (Bev-wound No No Skin Appearance) -Ulcer Cleansing Rinsed/ Soap and Water Irrigated with Saline -Foul Odor after Cleansing No No -Anesthetic Used 4% Lidocaine 4% Lidocaine Solution Solution WC - Nurse 2 - General Ulcer CM Notes Start: 09/06/24 09:56 Freq: Status: Active Protocol: Activity Type Activity Date Activity User E-sign Co-sign Detail Recorded Client Recorded Date Recorded By Document 09/06/24 10:22 [id number] 09/06/24 10:26 Document 09/13/24 10:09 [id number] 09/13/24 10:14 09/06/24 09/13/24 10:22 10:09 Wound Center Nurse 2 #5 RT 4TH TOE AMP SITE -Time 10:23 10:09 -Correct Patient Yes Yes -Correct Side, Site, Position Yes Yes -Correct Procedure Yes Yes -Procedure Performed Yes Yes -Type of Procedure Debridement Debridement -Clinical Debridement Muscle / Fascia Muscle / Fascia -Tissue Removed Muscle,Fascia Muscle -Post Debridement (cm) - Length 4.3 3.0 -Post Debridement (cm) - Width 0.4 0.4 -Post Debridement (cm) - Depth 4.0 3.5 -Total Square (Post) (cm) 1.72 1.20 -Area of Debridement (cm) - Length 4.3 3.0 -Area of Debridement (cm) - Width 0.4 0.4 -Total Square (Area) (cm) 1.72 1.20 -Tunneling No No -Undermining/Tunneling No No -Circular Undermining No No -Wound/Ulcer Outcome Not Healed Not Healed -Ulcer Cleansing Rinsed/ Rinsed/ Irrigated with Irrigated with Saline Saline -Foul Odor after Cleansing No No -Bioengineered Tissue No Yes -Type of Bioengineered Tissue Epifix Mesh -Expiration Date 03/05/29 -Product Lot Number [id number] -Percent Used 100 -Lot number of Saline Used [id number] -Bleeding Controlled with Pressure Pressure -Treatment Response Procedure Procedure Tolerated Well Tolerated Well -Offloading Yes Yes -Type of Offloading Knee Walker Knee Walker -Debridement - Subq, 1st 20sq cm No -Debridement - Muscle / Fascia, 1st Yes No 20sq cm -Apply Skin Sub - 1st 25 sq cm - Feet 1 -Epifix Mesh (per sq cm) 11 Pain Scale: 0-10 Numeric Is Patient Pain Free? Yes Yes - Nurse 3 - General Ulcer D/C NN Start: 09/06/24 09:56 Freq: Status: Active Protocol: Activity Type Activity Date Activity User E-sign Co-sign Detail Recorded Client Recorded Date Recorded By Document 09/06/24 10:43 KW [id number] 09/06/24 10:44 KW Document 09/13/24 10:30 MT [id number] 09/13/24 10:33 MT 09/06/24 09/13/24 10:43 10:30 Wound Care Center Nurse 3 #5 RT 4TH TOE AMP SITE -Foul Odor after Cleansing No -Negative Pressure Wound Therapy N/A -Other Dressing betadine gauze abd packed -Primary Dressing Covered/Secured with Dry Gauze & Dry Gauze,Dry Roll Gauze, Gauze & Roll Secured with Gauze,Secured Tape with Tape RLE -Compression Wrap Farhat Wrap Farhat Wrap Pain Scale: 0-10 Numeric Is Patient Pain Free? Yes No - Visit Discharge Discharge Condition Stable Stable Ambulatory Status Ambulatory Ambulatory Transportation Private Auto Medication Reconcilliation completed & No No provided to patient/care provider Clinical Summary of Care Provided Yes Yes Notes: knee roller Assessment/Plan Assessment/Plan (1) Type 2 diabetes mellitus with foot ulcer: CODE(S): E11.621 - Type 2 diabetes mellitus with foot ulcer; L97.509 - Non-pressure chronic ulcer of other part of unspecified foot with unspecified severity QUALIFIERS: Diabetes mellitus intermodal customer service insulin use: with intermodal customer service use Qualified Code(s): E11.621 - Type 2 diabetes mellitus with foot ulcer; L97.509 - Non-pressure chronic ulcer of other part of unspecified foot with unspecified severity; Z79.4 - shelter (current) use of insulin PLAN: Patient was examined and evaluated. All findings were discussed with the patient. All questions were answered to the patient's satisfaction. Excisional debridement down to and including subcutaneous tissue, muscle, fascia of the right foot full-thickness wound with a number 5 mm dermal curette without incident. Predebridement measurement was 2.9 x 0.3 x 3.2 cm. Postdebridement measurement is 3.0 x 0.4 x 3.5 cm. EpiFix 4.0 x 4.5 cm was applied to the right full-thickness ulceration with 100% use. First application. The graft site was free and clear of any infection. The wound/skin graft substitute was dressed with nonadherent bandage secured in place with Steri-Strips followed by bolster dressing as well as a double layer Tubigrip. Patient will continue blood sugar control as he is doing so already. Follow-up at the wound care center with Dr. Jiang in 1 week. 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
[2024-09-20 09:53] VITALS: BP 163/70; PULSE 96; RESP 20; TEMP 36.3; BMI 48.2
--- NOTE | 2024-09-20 10:13 | WC ---
Suzanna RUBBER TUBING BACKER - in to speak with pt concerning HBO. pt has PFT scheduled for week of .
--- NOTE | 2024-09-20 10:50 | PCM.CONHBO ---
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 Patient would benefit from HBO therapy to help heal his diabetic non pressure chronic ulcer with bone involvement. With his significant medical history, he will have a difficult time healing this ulcer without advanced wound therapies. His ECG was completed and showed Sinus tachycardia, but no other issues. He was seen by pulmonary 09/18/24. He is scheduled for PFT and walking test. Once pulmonary give clearance, he can start his HBO therapy which would be daily 5 days a week for 30 visits at 2 TOYIN pressure with no air breaks for 90 minutes. History of Present Illness Date of Service: 09/20/24 Chief Complaint: Right foot full-thickness wound History of Wound: Mr. Ruelas is a very pleasant 39-year-old male with diabetes coming wound care center today for evaluation for HBO therapy. He started with a blister on his foot after moving about 1.5 months ago. 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 Hood, [employer] for partial ray amputation to the fourth metatarsal right foot. His operative cultures were positive for proteus, MRSE, MS-CoNS, and strep which he was treated with vanc/unasyn then discharged home on Linezolid and Augmentin (he was seen inpatient by ID). He developed a full-thickness wound post op. He then was admitted to [facility] for CHF and lung exacerbations. He was discharged and referred to the wound care center by his primary doctor. Patient is a diabetic and has had blood sugars around 160 to 170 mg/dL. He is now seeing Dr. Jiang at the wound center for management of his right foot ulcer. He has history of foot ulcers on left foot/great toe, diabetic polyneuropathy, HTN, hyperlipidemia, GERD, Gastroparesis, obesity and CHF. With his most recent hospitalization at [facility], he had a cardiac echo with EF 55-60%. A CXRY that showed Borderline cardiomegaly with interstitial and alveolar haziness bilaterally, could represent mild pulmonary venous congestion. Progress of Wound: Right foot full thickness ulcer status post fourth ray resection. He is now receiving Epifix to help with the healing of this ulcer. He was seen 2 days ago by pulmonary for his HBO clearance. He is scheduled next week for PFT and walking test. He has seen ENT to have cerumen removed from ear canal. [facility] Medical History (Reviewed 09/20/24 @ 11:19 by Suzanna Becerra MANAGER OF TRAINING AND DEVELOPMENT, MANAGER OF TRAINING AND DEVELOPMENT-C) Diabetes mellitus with diabetic polyneuropathy Tobacco abuse Morbid obesity with BMI of 45.0-49.9, adult History of osteomyelitis Diabetic neuropathy Cellulitis Obese Diabetes mellitus Ulcer of toe of left foot GERD (gastroesophageal reflux disease) Chiari malformation Depression Gastroparesis HTN (hypertension) Arm paresthesia, left Radicular pain in left arm HLD (hyperlipidemia) DM (diabetes mellitus), type 2 with complications Home Medications ?Medication ?Instructions ?Recorded ?Last Taken ?Type atorvastatin 80 mg tablet 80 mg PO QHS hld 07/19/24 Unknown History blood-glucose sensor (FreeStyle 07/19/24 Unknown History Deion 3 Plus Sensor device) pen needle, diabetic 31 gauge x 07/19/24 Unknown History 11/17 (BD Ultra-Fine Short Pen Needle) potassium chloride 20 mEq 20 meq PO DAILY 07/19/24 Unknown History tablet,extended release acetaminophen 325 mg tablet 650 mg (2 x 325 mg) PO Q6H PRN PRN 07/26/24 Unknown Rx Pain 1-5/10 or Fever #30 tabs insulin regular hum U-500 conc 500 80 unit (0.16 mL) subcut BIDCM #0 07/26/24 Unknown Rx unit/mL(3 mL) subcut pen (Humulin mL R U-500 (Conc) Insulin Kwikpen) metoprolol succinate 50 mg 50 mg PO BID #60 tabs 07/29/24 Unknown Rx tablet,extended release 24 hr bumetanide 1 mg tablet mg 08/09/24 Unknown History duloxetine 30 mg capsule,delayed mg PO 09/18/24 Unknown History release empagliflozin 10 mg tablet 10 mg PO QAM 09/18/24 Unknown History (Jardiance) insulin glargine-yfgn 100 unit/mL 50 unit subcut QHS 09/18/24 Unknown History (3 mL) subcutaneous pen meloxicam 7.5 mg tablet mg PO DAILY 09/18/24 Unknown History Allergy/AdvReac Type Severity Reaction Status Date / Time No Known Allergies Allergy Verified 09/18/24 09:44 Surgical History (Reviewed 09/20/24 @ 11:19 by Suzanna Becerra MANAGER OF TRAINING AND DEVELOPMENT, MANAGER OF TRAINING AND DEVELOPMENT-C) S/P foot surgery Social History (Reviewed 09/20/24 @ 11:19 by Suzanna Becerra MANAGER OF TRAINING AND DEVELOPMENT, MANAGER OF TRAINING AND DEVELOPMENT-C) Smoking Status: Current every day smoker tobacco type: smokeless tobacco ROS Constitutional Constitutional: Denies chills or fever(s) Eyes Eyes: Reports none ENT HEENT: Denies dizziness Cardiovascular Cardiovascular: Reports as per HPI and dyspnea on exertion; Denies chest pain or nausea Respiratory/Chest Respiratory/Chest: Reports as per HPI Gastrointestinal Gastrointestinal: Reports none Genitourinary Genitourinary: Reports none Musculoskeletal Musculoskeletal: Reports as per HPI Integumentary Integumentary: Reports as per HPI and skin ulcer Neurologic Neurologic: Reports as per HPI Psychiatric Psychiatric: Reports none Endocrine Endocrinology: Reports as per HPI Hematologic/Lymphatic Hematologic/Lymphatic: Reports none Allergic/Immunologic Allergic/Immunologic: Reports none Physical Exam Physical Exam Const alert and oriented x3 General Appearance: cooperative and well kempt HEENT normocephalic and TM's normal bilaterally Eyes General Eye: normal appearance of both eyes Neck full ROM Lymph Lymphatic: no lymphedema noted Resp normal respiratory effort, normal air movement and clear to auscultation bilaterally Effort and Inspection: able to speak in complete sentences Cardio regular rate and regular rhythm GI soft to palpation Back/Spine normal ROM Extremity normal capillary refill Peripheral Pulses: Yes dorsalis pedis pulses present Skin Wound Narrative: Chronic ulcer right foot at 4th ray amputation. No erythema present. Measuring smaller in size from previous visit with me. He is now having Epifix applied to the ulcer weekly. Neuro oriented x3 Psych mental status grossly normal, thought process normal and cooperative Appearance: grossly normal Attitude: engaged Activity / Motor Behavior: appropriate eye contact Nursing Assessment and Debridement Post-Debridement Measurements and Additional Note: Post-Debridement Measurements/Treatment LARISSA - Nurse 1 - General Ulcer Assessment Start: 09/06/24 09:56 Freq: Status: Active Protocol: CASSIE Activity Type Activity Date Activity User E-sign Co-sign Detail Recorded Client Recorded Date Recorded By Document 09/20/24 09:53 DL [id number] 09/20/24 10:01 DL 09/20/24 09:53 - Today's Visit Information Type of service Follow-up Visit (Physician/[employer]PLIANCE ANALYST ) Arrival Mode Ambulatory Transfer Assistance None Patient Identification Verified (Name & Yes ) Patient Requires Transmission-Based No Precautions Finger Stick Blood Sugar(mg/dl) (if 140 indicated): Blood Sugar Stated by Patient Height and Weight Body Mass Index (BMI) 48.2 BMI Classification Obese Vital Signs Temperature (97.8 F-99.1 F) 97.3 F L Temperature Source Temporal Pulse Rate (60-100 beats/min) 96 Pulse Location Monitor Respiratory Rate (12-18 breaths/min) 20 H Respiratory rate source Observation Blood Pressure (90/60-120/80 mm Hg) 163/70 H Blood Pressure Mean (mm Hg) 101 Source Monitor History Since Last Visit- (Skip if this is Patient's initial visit) Have you changed medications since your No last visit? Any new allergies or adverse reactions No Had a fall/change in ADL's that may No increase risk of falls Signs or symptoms of abuse and/or No neglect since last visit Have you been in the hospital since your No last visit? Has dressing in place as prescribed Yes Has compression in place as prescribed Yes Has offloadiing in place as prescribed Yes Experienced any changes in pain level or No management Right Footwear Surgical Shoe with pressure relief insole Pain Scale: 0-10 Numeric Is Patient Pain Free? Yes WC - Nurse 1 - General Ulcer Measurement Start: 09/06/24 09:56 Freq: Status: Active Protocol: Activity Type Activity Date Activity User E-sign Co-sign Detail Recorded Client Recorded Date Recorded By Document 09/20/24 09:53 DL [id number] 09/20/24 10:01 DL 09/20/24 09:53 Wound Center Nurse 1 #5 RT 4TH TOE AMP SITE -Current Size (cm) - Length 2.8 -Current Size (cm) - Width 3.2 -Current Size (cm) - Depth 0.1 -Total Square Cm 8.96 -Tunneling Position (O'clock) 12 -Tunneling Distance (cm) 3 -Exudate Amt Medium -Exudate Type Serosanguineous -Wound Margin Distinct, Outline Attached -Granulation Amt Large (67-100%) -Granulation Quality Red -Necrosis Amt Small (1-33%) -Necrotic Tissue Type Adherent Slough -Structure Exposed N/A -Texture (Bev-wound Skin Appearance) Scarring -Moisture (Bev-wound Skin Appearance) Maceration -Color (Bev-wound Skin Appearance) No Abnormality -Temperature (Bev-wound Skin No Abnormality Appearance) (Pt Warm) -Tenderness on Palpation (Bev-wound No Skin Appearance) -Ulcer Cleansing Soap and Water -Foul Odor after Cleansing No -Anesthetic Used 5% Lidocaine Gel WC - Nurse 2 - General Ulcer CM Notes Start: 09/06/24 09:56 Freq: Status: Active Protocol: Activity Type Activity Date Activity User E-sign Co-sign Detail Recorded Client Recorded Date Recorded By Document 09/20/24 10:34 [id number] 09/20/24 10:36 09/20/24 10:34 Wound Center Nurse 2 -Time 10:34 -Correct Patient Yes -Correct Side, Site, Position Yes -Correct Procedure Yes -Procedure Performed Yes -Type of Procedure Debridement -Clinical Debridement Muscle / Fascia -Tissue Removed Muscle -Post Debridement (cm) - Length 2.8 -Post Debridement (cm) - Width 0.3 -Post Debridement (cm) - Depth 3.5 -Total Square (Post) (cm) 0.84 -Area of Debridement (cm) - Length 2.8 -Area of Debridement (cm) - Width 0.3 -Total Square (Area) (cm) 0.84 -Tunneling No -Undermining/Tunneling No -Circular Undermining No -Wound/Ulcer Outcome Not Healed -Ulcer Cleansing Rinsed/ Irrigated with Saline -Foul Odor after Cleansing No -Bioengineered Tissue Yes -Type of Bioengineered Tissue Epicord -Expiration Date 03/05/29 -Product Lot Number [id number] -Percent Used 100 -Lot number of Saline Used [id number] -Bleeding Controlled with Pressure -Treatment Response Procedure Tolerated Well -Offloading Yes -Type of Offloading Surgical Shoe -Debridement - Muscle / Fascia, 1st No 20sq cm -Apply Skin Sub - 1st 25 sq cm - Feet 1 -Epicord (per sq cm) 6 Pain Scale: 0-10 Numeric Is Patient Pain Free? Yes WC - Nurse 3 - General Ulcer D/C NN Start: 09/06/24 09:56 Freq: Status: Active Protocol: Activity Type Activity Date Activity User E-sign Co-sign Detail Recorded Client Recorded Date Recorded By Document 09/20/24 10:42 FL [id number] 09/20/24 10:50 MT 09/20/24 10:42 Wound Care Center Nurse 3 #5 RT 4TH TOE AMP SITE -Other Dressing abd on bottom -Primary Dressing Covered/Secured with Dry Gauze,Dry Gauze & Roll Gauze,Secured with Tape RLE -Compression Wrap [place] Wrap Pain Scale: 0-10 Numeric Is Patient Pain Free? Yes WC - Visit Discharge Discharge Condition Stable Ambulatory Status Ambulatory Transportation Private Auto Medication Reconcilliation completed & No provided to patient/care provider Clinical Summary of Care Provided Yes Notes: pt verbalized understanding to keep foot dry Charges/Coding Visit Charges Office Visits / Consults: [id number] OV L2 Est 10min
--- NOTE | 2024-09-20 12:42 | PCM.WC.PN ---
History of Present Illness Date of Service: 09/20/24 Chief Complaint: Right foot full-thickness wound History of Wound: Mr. Ruelas is a very pleasant 39-year-old male with diabetes coming wound care center today for evaluation for HBO therapy. He started with a blister on his foot after moving about 1.5 months ago. 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 His operative cultures were positive for proteus, MRSE, MS-CoNS, and strep which he was treated with vanc/unasyn then discharged home on Linezolid and Augmentin (he was seen inpatient by ID). He developed a full-thickness wound post op. He then was admitted to [facility] for CHF and lung exacerbations. He was discharged and referred to the wound care center by his primary doctor. Patient is a diabetic and has had blood sugars around 160 to 170 mg/dL. He is now seeing Dr. Jiang at the wound center for management of his right foot ulcer. He has history of foot ulcers on left foot/great toe, diabetic polyneuropathy, HTN, hyperlipidemia, GERD, Gastroparesis, obesity and CHF. With his most recent hospitalization at [facility], he had a cardiac echo with EF 55-60%. A CXRY that showed Borderline cardiomegaly with interstitial and alveolar haziness bilaterally, could represent mild pulmonary venous congestion. Progress of Wound: Right foot full thickness ulcer status post fourth ray resection. He is now receiving Epifix to help with the healing of this ulcer. He was seen 2 days ago by pulmonary for his HBO clearance. He is scheduled next week for PFT and walking test. He has seen ENT to have cerumen removed from ear canal. Subjective Subjective Mr. Ruelas is a 39-year-old diabetic male presented wound care center today for follow-up evaluation of full-thickness wound secondary to fourth ray resection. He has been compliant with his dressing changes and blood sugar has been well-controlled. He is waiting approval for his HBO therapy. Denies trauma. Denies constitutional symptoms. No other pedal complaints at this time. Objective Data Objective Data Vital Signs: Vital Signs Temp Pulse Resp BP O2 Del Method 97.3 F L 96 20 H 163/70 H Room Air 09/20/24 09:53 09/20/24 09:53 09/20/24 09:53 09/20/24 09:53 09/13/24 09:29 Oxygen Delivery Method Room Air Weight: 166.015 kg Body Mass Index (BMI) 48.2 Physical Exam Narrative Vascular: DP and PT pulses are palpable to the right lower extremity. CFT is brisk. No erythema to the right foot. Nonpitting edema to the right foot and ankle. Neurological: Light touch intact. Protective station is diminished. Patient does respond to painful stimuli. Dermatological: Full-thickness wound at the level of the status post fourth ray amputation to the right foot measuring 2.8 x 0.3 x 3.5 cm. No probe to bone. Sanguinous drainage appreciated. No malodor. No purulent drainage noted. Excisional debridement down to and including subcutaneous tissue, muscle, fascia of the right foot full-thickness wound with a number 5 mm dermal curette without incident. Predebridement measurement was 2.7 x 0.2 x 3.2 cm. Postdebridement measurement is 2.8 x 0.3 x 3.5 cm. Epi cord 2.0 x 2.5 cm was applied to the right full-thickness ulceration with 100% use. Second application. The graft site was free and clear of any infection. The wound/skin graft substitute was dressed with nonadherent bandage secured in place with Steri-Strips followed by bolster dressing as well as a double layer Tubigrip. Musculoskeletal: Muscle strength is 5 out of 5 in all quadrants to the right lower extremity. No pain on palpation of the full-thickness wound. No pain with calf pressure. Debridement Note Debridement Note Debridement Free Text: Excisional debridement down to and including subcutaneous tissue, muscle, fascia of the right foot full-thickness wound with a number 5 mm dermal curette without incident. Predebridement measurement was 2.7 x 0.2 x 3.2 cm. Postdebridement measurement is 2.8 x 0.3 x 3.5 cm. Epi cord 2.0 x 2.5 cm was applied to the right full-thickness ulceration with 100% use. Second application. The graft site was free and clear of any infection. The wound/skin graft substitute was dressed with nonadherent bandage secured in place with Steri-Strips followed by bolster dressing as well as a double layer Tubigrip. Post-Debridement Measurements and Additional Note: Post-Debridement Measurements/Treatment WC - Nurse 1 - General Ulcer Assessment Start: 09/06/24 09:56 Freq: Status: Active Protocol: CASSIE Activity Type Activity Date Activity User E-sign Co-sign Detail Recorded Client Recorded Date Recorded By Document 09/06/24 09:56 ML [id number] 09/06/24 10:01 ML Document 09/13/24 09:29 KW [id number] 09/13/24 09:36 KW Document 09/20/24 09:53 DL [id number] 09/20/24 10:01 DL 09/06/24 09/13/24 09/20/24 09:56 09:29 09:53 WC - Today's Visit Information Type of service Follow-up Visit Follow-up Visit Follow-up Visit (Physician/APARTMENT LEASING MANAGER (Physician/APARTMENT LEASING MANAGER (Physician/APARTMENT LEASING MANAGER ) ) ) Arrival Mode Ambulatory Ambulatory, Ambulatory Other Arrival Mode (Other) knee roller Transfer Assistance None None Patient Identification Verified (Name & Yes Yes Yes ) Patient Requires Transmission-Based No No Precautions Finger Stick Blood Sugar(mg/dl) (if 140 indicated): Blood Sugar Stated by Patient Height and Weight Body Mass Index (BMI) 48.2 48.2 48.2 BMI Classification Obese Obese Obese Vital Signs Temperature (97.8 F-99.1 F) 96.0 F L 97.3 F L Temperature Source Temporal Temporal Temporal Pulse Rate (60-100) 79 95 96 Pulse Location Monitor Monitor Monitor Respiratory Rate (12-18) 16 16 20 H Respiratory rate source Observation Observation Observation Oxygen Delivery Method Room Air Blood Pressure (90/60-120/80) 185/90 H 158/103 H 163/70 H Blood Pressure Mean (mm Hg) 121 121 101 Source Monitor Monitor Monitor Position Sitting Semi-Fowlers Blood Pressure Location Right Arm Left Arm History Since Last Visit- (Skip if this is Patient's initial visit) Have you changed medications since your No No No last visit? Any new allergies or adverse reactions No No No Had a fall/change in ADL's that may No No No increase risk of falls Signs or symptoms of abuse and/or No No No neglect since last visit Have you been in the hospital since your No No No last visit? Has dressing in place as prescribed Yes Yes Yes Has compression in place as prescribed Yes Yes Yes Has offloadiing in place as prescribed N/A Yes Yes Experienced any changes in pain level or No No No management Left Footwear Regular Shoe Right Footwear Surgical Shoe Surgical Shoe with pressure with pressure relief insole relief insole Pain Scale: 0-10 Numeric Is Patient Pain Free? Yes Yes Yes WC - Nurse 1 - General Ulcer Measurement Start: 09/06/24 09:56 Freq: Status: Active Protocol: Activity Type Activity Date Activity User E-sign Co-sign Detail Recorded Client Recorded Date Recorded By Document 09/06/24 09:56 ML [id number] 09/06/24 10:01 ML Document 09/13/24 09:29 KW [id number] 09/13/24 09:36 KW Document 09/20/24 09:53 DL [id number] 09/20/24 10:01 DL 09/06/24 09/13/24 09/20/24 09:56 09:29 09:53 Wound Center Nurse 1 #5 RT 4TH TOE AMP SITE -Current Size (cm) - Length 3.5 3 2.8 -Current Size (cm) - Width 0.6 1 3.2 -Current Size (cm) - Depth 2 1.3 0.1 -Total Square Cm 2.10 3 8.96 -Tunneling Position (O'clock) 12 -Tunneling Distance (cm) 3 -Exudate Amt Medium Medium Medium -Exudate Type Serosanguineous Serosanguineous Serosanguineous -Wound Margin Distinct, Distinct, Outline Outline Attached Attached -Granulation Amt Medium (34-66%) Large (67-100%) Large (67-100%) -Granulation Quality Red Red -Slough/Fibrin Yes -Necrosis Amt Medium (34-66%) Small (1-33%) -Necrotic Tissue Type Adherent Slough Adherent Slough -Structure Exposed N/A -Texture (Bev-wound Skin Appearance) Assessed Assessed Scarring -Moisture (Bev-wound Skin Appearance) Assessed Assessed, Maceration Maceration -Color (Bev-wound Skin Appearance) Assessed Assessed No Abnormality -Temperature (Bev-wound Skin No Abnormality No Abnormality No Abnormality Appearance) (Pt Warm) (Pt Warm) (Pt Warm) -Tenderness on Palpation (Bev-wound No No No Skin Appearance) -Ulcer Cleansing Rinsed/ Soap and Water Soap and Water Irrigated with Saline -Foul Odor after Cleansing No No No -Anesthetic Used 4% Lidocaine 4% Lidocaine 5% Lidocaine Solution Solution Gel WC - Nurse 2 - General Ulcer CM Notes Start: 09/06/24 09:56 Freq: Status: Active Protocol: Activity Type Activity Date Activity User E-sign Co-sign Detail Recorded Client Recorded Date Recorded By Document 09/06/24 10:22 [id number] 09/06/24 10:26 Document 09/13/24 10:09 [id number] 09/13/24 10:14 Document 09/20/24 10:34 [id number] 09/20/24 10:36 09/06/24 09/13/24 09/20/24 10:22 10:09 10:34 Wound Center Nurse 2 #5 RT 4TH TOE AMP SITE -Time 10:23 10:09 10:34 -Correct Patient Yes Yes Yes -Correct Side, Site, Position Yes Yes Yes -Correct Procedure Yes Yes Yes -Procedure Performed Yes Yes Yes -Type of Procedure Debridement Debridement Debridement -Clinical Debridement Muscle / Fascia Muscle / Fascia Muscle / Fascia -Tissue Removed Muscle,Fascia Muscle Muscle -Post Debridement (cm) - Length 4.3 3.0 2.8 -Post Debridement (cm) - Width 0.4 0.4 0.3 -Post Debridement (cm) - Depth 4.0 3.5 3.5 -Total Square (Post) (cm) 1.72 1.20 0.84 -Area of Debridement (cm) - Length 4.3 3.0 2.8 -Area of Debridement (cm) - Width 0.4 0.4 0.3 -Total Square (Area) (cm) 1.72 1.20 0.84 -Tunneling No No No -Undermining/Tunneling No No No -Circular Undermining No No No -Wound/Ulcer Outcome Not Healed Not Healed Not Healed -Ulcer Cleansing Rinsed/ Rinsed/ Rinsed/ Irrigated with Irrigated with Irrigated with Saline Saline Saline -Foul Odor after Cleansing No No No -Bioengineered Tissue No Yes Yes -Type of Bioengineered Tissue Epifix Mesh Epicord -Expiration Date 03/05/29 03/05/29 -Product Lot Number [id number] -Percent Used 100 100 -Lot number of Saline Used [id number] -Bleeding Controlled with Pressure Pressure Pressure -Treatment Response Procedure Procedure Procedure Tolerated Well Tolerated Well Tolerated Well -Offloading Yes Yes Yes -Type of Offloading Knee Walker Knee Walker Surgical Shoe -Debridement - Subq, 1st 20sq cm No -Debridement - Muscle / Fascia, 1st Yes No No 20sq cm -Apply Skin Sub - 1st 25 sq cm - Feet 1 1 -Epicord (per sq cm) 6 -Epifix Mesh (per sq cm) 11 Pain Scale: 0-10 Numeric Is Patient Pain Free? Yes Yes Yes - Nurse 3 - General Ulcer D/C NN Start: 09/06/24 09:56 Freq: Status: Active Protocol: Activity Type Activity Date Activity User E-sign Co-sign Detail Recorded Client Recorded Date Recorded By Document 09/06/24 10:43 KW [id number] 09/06/24 10:44 KW Document 09/13/24 10:30 MT [id number] 09/13/24 10:33 MT Document 09/20/24 10:42 MT [id number] 09/20/24 10:50 MT 09/06/24 09/13/24 09/20/24 10:43 10:30 10:42 Wound Care Center Nurse 3 #5 RT 4TH TOE AMP SITE -Foul Odor after Cleansing No -Negative Pressure Wound Therapy N/A -Other Dressing betadine gauze abd abd on bottom packed -Primary Dressing Covered/Secured with Dry Gauze & Dry Gauze,Dry Dry Gauze,Dry Roll Gauze, Gauze & Roll Gauze & Roll Secured with Gauze,Secured Gauze,Secured Tape with Tape with Tape RLE -Compression Wrap Farhat Wrap Farhat Wrap Farhat Wrap Pain Scale: 0-10 Numeric Is Patient Pain Free? Yes No Yes - Visit Discharge Discharge Condition Stable Stable Stable Ambulatory Status Ambulatory Ambulatory Ambulatory Transportation Private Auto Private Auto Medication Reconcilliation completed & No No No provided to patient/care provider Clinical Summary of Care Provided Yes Yes Yes Notes: knee roller pt verbalized understanding to keep foot dry Assessment/Plan Assessment/Plan (1) Type 2 diabetes mellitus with foot ulcer: CODE(S): E11.621 - Type 2 diabetes mellitus with foot ulcer; L97.509 - Non-pressure chronic ulcer of other part of unspecified foot with unspecified severity QUALIFIERS: Diabetes mellitus halfway insulin use: with halfway use Qualified Code(s): E11.621 - Type 2 diabetes mellitus with foot ulcer; L97.509 - Non-pressure chronic ulcer of other part of unspecified foot with unspecified severity; Z79.4 - [facility] (current) use of insulin PLAN: Patient was examined and evaluated. All findings were discussed with the patient. All questions were answered to the patient's satisfaction. Excisional debridement down to and including subcutaneous tissue, muscle, fascia of the right foot full-thickness wound with a number 5 mm dermal curette without incident. Predebridement measurement was 2.7 x 0.2 x 3.2 cm. Postdebridement measurement is 2.8 x 0.3 x 3.5 cm. Epi cord 2.0 x 2.5 cm was applied to the right full-thickness ulceration with 100% use. Second application. The graft site was free and clear of any infection. The wound/skin graft substitute was dressed with nonadherent bandage secured in place with Steri-Strips followed by bolster dressing as well as a double layer Tubigrip. Patient will continue blood sugar control as he is doing so already. Follow-up at the wound care center with Dr. Jiang in 1 week. 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
[2024-09-27 09:25] VITALS: BP 190/78; PULSE 86; RESP 15; TEMP 35.7; BMI 48.2
--- NOTE | 2024-09-27 14:02 | PN.PCM_ITS ---
History of Present Illness Date of Service: 09/27/24 Chief Complaint: Right foot full-thickness wound History of Wound: Mr. Ruelas is a very pleasant 39-year-old male with diabetes coming wound care center today for evaluation for HBO therapy. He started with a blister on his foot after moving about 1.5 months ago. 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 His operative cultures were positive for proteus, MRSE, MS-CoNS, and strep which he was treated with vanc/unasyn then discharged home on Linezolid and Augmentin (he was seen inpatient by ID). He developed a full-thickness wound post op. He then was admitted to [facility] for CHF and lung exacerbations. He was discharged and referred to the wound care center by his primary doctor. Patient is a diabetic and has had blood sugars around 160 to 170 mg/dL. He is now seeing Dr. Jiang at the wound center for management of his right foot ulcer. He has history of foot ulcers on left foot/great toe, diabetic polyneuropathy, HTN, hyperlipidemia, GERD, Gastroparesis, obesity and CHF. With his most recent hospitalization at [facility], he had a cardiac echo with EF 55-60%. A CXRY that showed Borderline cardiomegaly with interstitial and alveolar haziness bilaterally, could represent mild pulmonary venous congestion. Progress of Wound: Right foot full-thickness wound improving. Subjective Subjective Mr. Ruelas is a 39-year-old diabetic male presented wound care center today for follow-up evaluation for full-thickness wound to the fourth ray secondary to surgery. Patient has been doing well with his diabetic control. He has left the skin graft clean dry and intact. Denies trauma. Denies constitutional symptoms. No other pedal complaints at this time. Objective Data Objective Data Vital Signs: Vital Signs Temp Pulse Resp BP O2 Del Method 96.2 F L 86 15 190/78 H Room Air 09/27/24 09:25 09/27/24 09:25 09/27/24 09:25 09/27/24 09:25 09/13/24 09:29 Oxygen Delivery Method Room Air Weight: 166.015 kg Body Mass Index (BMI) 48.2 Physical Exam Narrative Vascular: DP and PT pulses are palpable to the right lower extremity. CFT is brisk. No erythema to the right foot. Nonpitting edema to the right foot and ankle. Neurological: Light touch intact. Protective station is diminished. Patient does respond to painful stimuli. Dermatological: Full-thickness wound at the level of the status post fourth ray amputation to the right foot measuring 2.4 x 0.4 x 2.7 cm. No probe to bone. No malodor. No purulent drainage noted. Excisional debridement down to and including subcutaneous tissue, muscle, fascia of the right foot full-thickness wound with a number 5 mm dermal curette without incident. Predebridement measurement was 2.2 x 0.3 x 2.5 cm. Postdebridement measurement is 2.4 x 0.4 x 2.7 cm. Epi cord 2.0 x 2.5 cm was applied to the right full-thickness ulceration with 100% use. Third application. The graft site was free and clear of any infection. The wound/skin graft substitute was dressed with nonadherent bandage secured in place with Steri-Strips followed by bolster dressing as well as a double layer Tubigrip. Musculoskeletal: Muscle strength is 5 out of 5 in all quadrants to the right lower extremity. No pain on palpation of the full-thickness wound. No pain with calf pressure. Debridement Note Debridement Note Debridement Free Text: Excisional debridement down to and including subcutaneous tissue, muscle, fascia of the right foot full-thickness wound with a number 5 mm dermal curette without incident. Predebridement measurement was 2.2 x 0.3 x 2.5 cm. Postdebridement measurement is 2.4 x 0.4 x 2.7 cm. Epi cord 2.0 x 2.5 cm was applied to the right full-thickness ulceration with 100% use. Third application. The graft site was free and clear of any infection. The wound/skin graft substitute was dressed with nonadherent bandage secured in place with Steri-Strips followed by bolster dressing as well as a double layer Tubigrip. Post-Debridement Measurements and Additional Note: Post-Debridement Measurements/Treatment LARISSA - Nurse 1 - General Ulcer Assessment Start: 09/06/24 09:56 Freq: Status: Active Protocol: CASSIE Activity Type Activity Date Activity User E-sign Co-sign Detail Recorded Client Recorded Date Recorded By Document 09/06/24 09:56 ML [id number] 09/06/24 10:01 ML Document 09/13/24 09:29 KW [id number] 09/13/24 09:36 KW Document 09/20/24 09:53 DL [id number] 09/20/24 10:01 DL Document 09/27/24 09:25 ML [id number] 09/27/24 09:33 ML 09/06/24 09/13/24 09/20/24 09:56 09:29 09:53 WC - Today's Visit Information Type of service Follow-up Visit Follow-up Visit Follow-up Visit (Physician/WEDDING DAY COORDINATOR (Physician/WEDDING DAY COORDINATOR (Physician/WEDDING DAY COORDINATOR ) ) ) Arrival Mode Ambulatory Ambulatory, Ambulatory Other Arrival Mode (Other) knee roller Transfer Assistance None None Patient Identification Verified (Name & Yes Yes Yes ) Patient Requires Transmission-Based No No Precautions Finger Stick Blood Sugar(mg/dl) (if 140 indicated): Blood Sugar Stated by Patient Height and Weight Body Mass Index (BMI) 48.2 48.2 48.2 BMI Classification Obese Obese Obese Vital Signs Temperature (97.8 F-99.1 F) 96.0 F L 97.3 F L Temperature Source Temporal Temporal Temporal Pulse Rate (60-100) 79 95 96 Pulse Location Monitor Monitor Monitor Respiratory Rate (12-18) 16 16 20 H Respiratory rate source Observation Observation Observation Oxygen Delivery Method Room Air Blood Pressure (90/60-120/80) 185/90 H 158/103 H 163/70 H Blood Pressure Mean (mm Hg) 121 121 101 Source Monitor Monitor Monitor Position Sitting Semi-Fowlers Blood Pressure Location Right Arm Left Arm History Since Last Visit- (Skip if this is Patient's initial visit) Have you changed medications since your No No No last visit? Any new allergies or adverse reactions No No No Had a fall/change in ADL's that may No No No increase risk of falls Signs or symptoms of abuse and/or No No No neglect since last visit Have you been in the hospital since your No No No last visit? Has dressing in place as prescribed Yes Yes Yes Has compression in place as prescribed Yes Yes Yes Has offloadiing in place as prescribed N/A Yes Yes Experienced any changes in pain level or No No No management Left Footwear Regular Shoe Right Footwear Surgical Shoe Surgical Shoe with pressure with pressure relief insole relief insole Pain Scale: 0-10 Numeric Is Patient Pain Free? Yes Yes Yes 09/27/24 09:25 WC - Today's Visit Information Type of service Follow-up Visit (Physician/WEDDING DAY COORDINATOR ) Arrival Mode Ambulatory Arrival Mode (Other) Transfer Assistance None Patient Identification Verified (Name & Yes ) Patient Requires Transmission-Based No Precautions Finger Stick Blood Sugar(mg/dl) (if 175 indicated): Blood Sugar Stated by Patient Height and Weight Body Mass Index (BMI) 48.2 BMI Classification Obese Vital Signs Temperature (97.8 F-99.1 F) 96.2 F L Temperature Source Temporal Pulse Rate (60-100) 86 Pulse Location Monitor Respiratory Rate (12-18) 15 Respiratory rate source Observation Oxygen Delivery Method Blood Pressure (90/60-120/80) 190/78 H Blood Pressure Mean (mm Hg) 115 Source Monitor Position Sitting Blood Pressure Location Right Arm History Since Last Visit- (Skip if this is Patient's initial visit) Have you changed medications since your No last visit? Any new allergies or adverse reactions No Had a fall/change in ADL's that may No increase risk of falls Signs or symptoms of abuse and/or No neglect since last visit Have you been in the hospital since your No last visit? Has dressing in place as prescribed Yes Has compression in place as prescribed Yes Has offloadiing in place as prescribed N/A Experienced any changes in pain level or No management Left Footwear Right Footwear Pain Scale: 0-10 Numeric Is Patient Pain Free? Yes - Nurse 1 - General Ulcer Measurement Start: 09/06/24 09:56 Freq: Status: Active Protocol: Activity Type Activity Date Activity User E-sign Co-sign Detail Recorded Client Recorded Date Recorded By Document 09/06/24 09:56 ML [id number] 09/06/24 10:01 ML Document 09/13/24 09:29 KW [id number] 09/13/24 09:36 KW Document 09/20/24 09:53 DL [id number] 09/20/24 10:01 DL Document 09/27/24 09:25 ML [id number] 09/27/24 09:33 ML 09/06/24 09/13/24 09/20/24 09:56 09:29 09:53 Wound Center Nurse 1 #5 RT 4TH TOE AMP SITE -Current Size (cm) - Length 3.5 3 2.8 -Current Size (cm) - Width 0.6 1 3.2 -Current Size (cm) - Depth 2 1.3 0.1 -Total Square Cm 2.10 3 8.96 -Tunneling Position (O'clock) 12 -Tunneling Distance (cm) 3 -Exudate Amt Medium Medium Medium -Exudate Type Serosanguineous Serosanguineous Serosanguineous -Wound Margin Distinct, Distinct, Outline Outline Attached Attached -Granulation Amt Medium (34-66%) Large (67-100%) Large (67-100%) -Granulation Quality Red Red -Slough/Fibrin Yes -Necrosis Amt Medium (34-66%) Small (1-33%) -Necrotic Tissue Type Adherent Slough Adherent Slough -Structure Exposed N/A -Texture (Bev-wound Skin Appearance) Assessed Assessed Scarring -Moisture (Bev-wound Skin Appearance) Assessed Assessed, Maceration Maceration -Color (Bev-wound Skin Appearance) Assessed Assessed No Abnormality -Temperature (Bev-wound Skin No Abnormality No Abnormality No Abnormality Appearance) (Pt Warm) (Pt Warm) (Pt Warm) -Tenderness on Palpation (Bev-wound No No No Skin Appearance) -Ulcer Cleansing Rinsed/ Soap and Water Soap and Water Irrigated with Saline -Foul Odor after Cleansing No No No -Anesthetic Used 4% Lidocaine 4% Lidocaine 5% Lidocaine Solution Solution Gel 09/27/24 09:25 Wound Center Nurse 1 #5 RT 4TH TOE AMP SITE -Current Size (cm) - Length 0.1 -Current Size (cm) - Width 0.1 -Current Size (cm) - Depth 0.1 -Total Square Cm 0.01 -Tunneling Position (O'clock) -Tunneling Distance (cm) -Exudate Amt Medium -Exudate Type Serosanguineous -Wound Margin Distinct, Outline Attached -Granulation Amt Medium (34-66%) -Granulation Quality -Slough/Fibrin Yes -Necrosis Amt Medium (34-66%) -Necrotic Tissue Type Adherent Slough -Structure Exposed -Texture (Bev-wound Skin Appearance) Assessed -Moisture (Bev-wound Skin Appearance) Assessed -Color (Bev-wound Skin Appearance) Assessed -Temperature (Bev-wound Skin No Abnormality Appearance) (Pt Warm) -Tenderness on Palpation (Bev-wound No Skin Appearance) -Ulcer Cleansing Rinsed/ Irrigated with Saline -Foul Odor after Cleansing No -Anesthetic Used 5% Lidocaine Gel WC - Nurse 2 - General Ulcer CM Notes Start: 09/06/24 09:56 Freq: Status: Active Protocol: Activity Type Activity Date Activity User E-sign Co-sign Detail Recorded Client Recorded Date Recorded By Document 09/06/24 10:22 [id number] 09/06/24 10:26 Document 09/13/24 10:09 [id number] 09/13/24 10:14 Document 09/20/24 10:34 [id number] 09/20/24 10:36 Document 09/27/24 09:53 [id number] 09/27/24 09:56 09/06/24 09/13/24 09/20/24 10:22 10:09 10:34 Wound Center Nurse 2 #5 RT 4TH TOE AMP SITE -Time 10:23 10:09 10:34 -Correct Patient Yes Yes Yes -Correct Side, Site, Position Yes Yes Yes -Correct Procedure Yes Yes Yes -Procedure Performed Yes Yes Yes -Type of Procedure Debridement Debridement Debridement -Clinical Debridement Muscle / Fascia Muscle / Fascia Muscle / Fascia -Tissue Removed Muscle,Fascia Muscle Muscle -Post Debridement (cm) - Length 4.3 3.0 2.8 -Post Debridement (cm) - Width 0.4 0.4 0.3 -Post Debridement (cm) - Depth 4.0 3.5 3.5 -Total Square (Post) (cm) 1.72 1.20 0.84 -Area of Debridement (cm) - Length 4.3 3.0 2.8 -Area of Debridement (cm) - Width 0.4 0.4 0.3 -Total Square (Area) (cm) 1.72 1.20 0.84 -Tunneling No No No -Undermining/Tunneling No No No -Circular Undermining No No No -Wound/Ulcer Outcome Not Healed Not Healed Not Healed -Ulcer Cleansing Rinsed/ Rinsed/ Rinsed/ Irrigated with Irrigated with Irrigated with Saline Saline Saline -Foul Odor after Cleansing No No No -Bioengineered Tissue No Yes Yes -Type of Bioengineered Tissue Epifix Mesh Epicord -Expiration Date 03/05/29 03/05/29 -Product Lot Number [id number] -Percent Used 100 100 -Lot number of Saline Used [id number] -Bleeding Controlled with Pressure Pressure Pressure -Treatment Response Procedure Procedure Procedure Tolerated Well Tolerated Well Tolerated Well -Offloading Yes Yes Yes -Type of Offloading Knee Walker Knee Walker Surgical Shoe -Debridement - Subq, 1st 20sq cm No -Debridement - Muscle / Fascia, 1st Yes No No 20sq cm -Apply Skin Sub - 1st 25 sq cm - Feet 1 1 -Epicord (per sq cm) 6 -Epifix Mesh (per sq cm) 11 Pain Scale: 0-10 Numeric Is Patient Pain Free? Yes Yes Yes 09/27/24 09:53 Wound Center Nurse 2 #5 RT 4TH TOE AMP SITE -Time 09:53 -Correct Patient Yes -Correct Side, Site, Position Yes -Correct Procedure Yes -Procedure Performed Yes -Type of Procedure Debridement -Clinical Debridement Muscle / Fascia -Tissue Removed Muscle -Post Debridement (cm) - Length 2.4 -Post Debridement (cm) - Width 0.4 -Post Debridement (cm) - Depth 2.7 -Total Square (Post) (cm) 0.96 -Area of Debridement (cm) - Length 2.4 -Area of Debridement (cm) - Width 0.4 -Total Square (Area) (cm) 0.96 -Tunneling No -Undermining/Tunneling No -Circular Undermining No -Wound/Ulcer Outcome Not Healed -Ulcer Cleansing Rinsed/ Irrigated with Saline -Foul Odor after Cleansing No -Bioengineered Tissue Yes -Type of Bioengineered Tissue Epicord -Expiration Date 03/05/29 -Product Lot Number [id number] -Percent Used 100 -Lot number of Saline Used [id number] -Bleeding Controlled with Pressure -Treatment Response Procedure Tolerated Well -Offloading Yes -Type of Offloading Surgical Shoe -Debridement - Subq, 1st 20sq cm -Debridement - Muscle / Fascia, 1st No 20sq cm -Apply Skin Sub - 1st 25 sq cm - Feet 1 -Epicord (per sq cm) 6 -Epifix Mesh (per sq cm) Pain Scale: 0-10 Numeric Is Patient Pain Free? Yes WC - Nurse 3 - General Ulcer D/C NN Start: 09/06/24 09:56 Freq: Status: Active Protocol: Activity Type Activity Date Activity User E-sign Co-sign Detail Recorded Client Recorded Date Recorded By Document 09/06/24 10:43 KW [id number] 09/06/24 10:44 KW Document 09/13/24 10:30 MT [id number] 09/13/24 10:33 MT Document 09/20/24 10:42 MT [id number] 09/20/24 10:50 MT Document 09/27/24 10:33 JF [id number] 09/27/24 10:34 JF 09/06/24 09/13/24 09/20/24 10:43 10:30 10:42 Wound Care Center Nurse 3 #5 RT 4TH TOE AMP SITE -Ulcer Cleansing -Foul Odor after Cleansing No -Negative Pressure Wound Therapy N/A -Other Dressing betadine gauze abd abd on bottom packed -Primary Dressing Covered/Secured with Dry Gauze & Dry Gauze,Dry Dry Gauze,Dry Roll Gauze, Gauze & Roll Gauze & Roll Secured with Gauze,Secured Gauze,Secured Tape with Tape with Tape RLE -Compression Wrap Farhat Wrap Farhat Wrap Farhat Wrap Pain Scale: 0-10 Numeric Is Patient Pain Free? Yes No Yes WC - Visit Discharge Discharge Condition Stable Stable Stable Ambulatory Status Ambulatory Ambulatory Ambulatory Transportation Private Auto Private Auto Medication Reconcilliation completed & No No No provided to patient/care provider Clinical Summary of Care Provided Yes Yes Yes Notes: knee roller pt verbalized understanding to keep foot dry 09/27/24 10:33 Wound Care Center Nurse 3 #5 RT 4TH TOE AMP SITE -Ulcer Cleansing Rinsed/ Irrigated with Saline -Foul Odor after Cleansing No -Negative Pressure Wound Therapy -Other Dressing -Primary Dressing Covered/Secured with Dry Gauze & Roll Gauze, Secured with Tape RLE -Compression Wrap Farhat Wrap Pain Scale: 0-10 Numeric Is Patient Pain Free? Yes WC - Visit Discharge Discharge Condition Stable Ambulatory Status Ambulatory Transportation Private Auto Medication Reconcilliation completed & Yes provided to patient/care provider Clinical Summary of Care Provided Yes Notes: Assessment/Plan Assessment/Plan (1) Type 2 diabetes mellitus with foot ulcer: CODE(S): E11.621 - Type 2 diabetes mellitus with foot ulcer; L97.509 - Non-pressure chronic ulcer of other part of unspecified foot with unspecified severity QUALIFIERS: Diabetes mellitus usp insulin use: with usp use Qualified Code(s): E11.621 - Type 2 diabetes mellitus with foot ulcer; L97.509 - Non-pressure chronic ulcer of other part of unspecified foot with unspecified severity; Z79.4 - longterm (current) use of insulin PLAN: Patient was examined and evaluated. All findings were discussed with the patient. All questions were answered to the patient's satisfaction. Excisional debridement down to and including subcutaneous tissue, muscle, fascia of the right foot full-thickness wound with a number 5 mm dermal curette without incident. Predebridement measurement was 2.2 x 0.3 x 2.5 cm. Postdebridement measurement is 2.4 x 0.4 x 2.7 cm. Epi cord 2.0 x 2.5 cm was applied to the right full-thickness ulceration with 100% use. Third application. The graft site was free and clear of any infection. The wound/skin graft substitute was dressed with nonadherent bandage secured in place with Steri-Strips followed by bolster dressing as well as a double layer Tubigrip. Patient will continue blood sugar control as he is doing so already. Follow-up at the wound care center with Dr. Jiang in 1 week. 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
--- NOTE | 2024-09-27 15:12 | WC ---
PHOTO 09/27/[address] [place] [address] SITE
== END 2024-10-02 23:59 | disposition home or self-care (01) ==
LOC: WC 09:45
PROVIDERS: PCP Nurse Practitioner Family; Referring Provider Nurse Practitioner Family; Visit Provider Podiatrist Foot & Ankle Surgery
DX: E11.621 Type 2 diabetes mellitus with foot ulcer (principal); L97.515 Non-pressure chronic ulcer of other part of right foot with muscle involvement without evidence of necrosis; M86.8X7 Other osteomyelitis, ankle and foot; I50.9 Heart failure, unspecified; I11.0 Hypertensive heart disease with heart failure; E11.42 Type 2 diabetes mellitus with diabetic polyneuropathy; E11.43 Type 2 diabetes mellitus with diabetic autonomic (poly)neuropathy; Z79.4 Long term (current) use of insulin; E11.69 Type 2 diabetes mellitus with other specified complication; S90.821A Blister (nonthermal), right foot, initial encounter; X58.XXXA Exposure to other specified factors, initial encounter; E78.5 Hyperlipidemia, unspecified; E66.9 Obesity, unspecified; K21.9 Gastro-esophageal reflux disease without esophagitis; F17.290 Nicotine dependence, other tobacco product, uncomplicated; Z79.84 Long term (current) use of oral hypoglycemic drugs; Z79.899 Other long term (current) drug therapy
CPT/HCPCS: 11043; 15275; 99212; Q4186; Q4187; G0463

== ENCOUNTER → 2024-09-29 | Outpatient (CLI) | payer MEDICARE, SELFPAY | END | disposition home or self-care (01) | LOC: PSN 07:43 | PROVIDERS: PCP Nurse Practitioner Family; Referring Provider Nurse Practitioner Acute Care; Visit Provider Nurse Practitioner Acute Care | DX: R06.02 Shortness of breath (principal) | CPT/HCPCS: 94060; 94726; 94729 ==

== ENCOUNTER 2024-11-01 08:30 | Outpatient (RCR) | payer MEDICARE, SELFPAY ==
[2024-10-03 00:22] VITALS: BP 190/78; PULSE 86; RESP 15; TEMP 35.7; BMI 48.2
[2024-10-04 08:56] VITALS: BP 212/97; PULSE 90; RESP 18; TEMP 36.1; BMI 48.2
--- NOTE | 2024-10-04 11:05 | PCM.WC.PN ---
History of Present Illness Date of Service: 10/04/24 Chief Complaint: Right foot full-thickness wound History of Wound: Mr. Ruelas is a very pleasant 39-year-old male with diabetes coming wound care center today for evaluation for HBO therapy. He started with a blister on his foot after moving about 1.5 months ago. 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 His operative cultures were positive for proteus, MRSE, MS-CoNS, and strep which he was treated with vanc/unasyn then discharged home on Linezolid and Augmentin (he was seen inpatient by ID). He developed a full-thickness wound post op. He then was admitted to [facility] for CHF and lung exacerbations. He was discharged and referred to the wound care center by his primary doctor. Patient is a diabetic and has had blood sugars around 160 to 170 mg/dL. He is now seeing Dr. Jiang at the wound center for management of his right foot ulcer. He has history of foot ulcers on left foot/great toe, diabetic polyneuropathy, HTN, hyperlipidemia, GERD, Gastroparesis, obesity and CHF. With his most recent hospitalization at [facility], he had a cardiac echo with EF 55-60%. A CXRY that showed Borderline cardiomegaly with interstitial and alveolar haziness bilaterally, could represent mild pulmonary venous congestion. Progress of Wound: Stable full-thickness wound right foot Subjective Subjective Mr. Ruelas is a 39-year-old diabetic male presented wound care center today follow-up evaluation of full-thickness wound secondary to fourth ray resection with amniotic skin graft substitute applied, right foot. Left the skin graft substitute, clean, dry and intact. Denies drainage. Blood sugars well-controlled. He is preparing for HBO dives tomorrow. He has been very grateful for his care. Denies trauma. Denies constitutional symptoms. No other pedal complaints at this time. Objective Data Objective Data Vital Signs: Vital Signs Temp Pulse Resp BP O2 Del Method 97.0 F L 90 18 212/97 H Room Air 10/04/24 08:56 10/04/24 08:56 10/04/24 08:56 10/04/24 08:56 10/04/24 08:56 Oxygen Delivery Method Room Air Weight: 166.015 kg Body Mass Index (BMI) 48.2 Physical Exam Narrative Vascular: DP and PT pulses are palpable to the right lower extremity. CFT is brisk. No erythema to the right foot. Nonpitting edema to the right foot and ankle. Neurological: Light touch intact. Protective station is diminished. Patient does respond to painful stimuli. Dermatological: Full-thickness wound at the level of the status post fourth ray amputation to the right foot measuring 2.8 x 0.5 x 2.3 cm. No probe to bone. No malodor. No purulent drainage noted. Excisional debridement down to and including subcutaneous tissue, muscle, fascia of the right foot full-thickness wound with a number 5 mm dermal curette without incident. Predebridement measurement was 2.0 x 0.3 x 1.7 cm. Postdebridement measurement is 2.8 x 0.5 x 2.3 cm. Epi cord 2.0 x 2.5 cm was applied to the right full-thickness ulceration with 100% use. Fourth application. The graft site was free and clear of any infection. The wound/skin graft substitute was dressed with nonadherent bandage secured in place with Steri-Strips followed by bolster dressing as well as a double layer Tubigrip. Musculoskeletal: Muscle strength is 5 out of 5 in all quadrants to the right lower extremity. No pain on palpation of the full-thickness wound. No pain with calf pressure. Debridement Note Debridement Note Debridement Free Text: Excisional debridement down to and including subcutaneous tissue, muscle, fascia of the right foot full-thickness wound with a number 5 mm dermal curette without incident. Predebridement measurement was 2.0 x 0.3 x 1.7 cm. Postdebridement measurement is 2.8 x 0.5 x 2.3 cm. Epi cord 2.0 x 2.5 cm was applied to the right full-thickness ulceration with 100% use. Fourth application. The graft site was free and clear of any infection. The wound/skin graft substitute was dressed with nonadherent bandage secured in place with Steri-Strips followed by bolster dressing as well as a double layer Tubigrip. Post-Debridement Measurements and Additional Note: Post-Debridement Measurements/Treatment WC - Nurse 1 - General Ulcer Assessment Start: 10/04/24 08:56 Freq: Status: Active Protocol: LARISSA.TONNY Activity Type Activity Date Activity User E-sign Co-sign Detail Recorded Client Recorded Date Recorded By Document 10/04/24 08:56 KW [id number] 10/04/24 09:04 10/04/24 08:56 - Today's Visit Information Type of service Follow-up Visit (Physician/CANDLE MOLDER HAND ) Arrival Mode Ambulatory Patient Identification Verified (Name & Yes ) Height and Weight Body Mass Index (BMI) 48.2 BMI Classification Obese Vital Signs Temperature (97.8 F-99.1 F) 97.0 F L Temperature Source Temporal Pulse Rate (60-100) 90 Pulse Location Monitor Respiratory Rate (12-18) 18 Respiratory rate source Observation Oxygen Delivery Method Room Air Blood Pressure (90/60-120/80) 212/97 H Blood Pressure Mean (mm Hg) 135 Source Monitor Position Semi-Fowlers Blood Pressure Location Left Arm History Since Last Visit- (Skip if this is Patient's initial visit) Have you changed medications since your No last visit? Any new allergies or adverse reactions No Had a fall/change in ADL's that may No increase risk of falls Signs or symptoms of abuse and/or No neglect since last visit Have you been in the hospital since your No last visit? Has dressing in place as prescribed Yes Has compression in place as prescribed Yes Has offloadiing in place as prescribed Yes Experienced any changes in pain level or No management Left Footwear Regular Shoe Right Footwear Surgical Shoe with pressure relief insole Pain Scale: 0-10 Numeric Is Patient Pain Free? Yes - Nurse 1 - General Ulcer Measurement Start: 10/04/24 08:56 Freq: Status: Active Protocol: Activity Type Activity Date Activity User E-sign Co-sign Detail Recorded Client Recorded Date Recorded By Document 10/04/24 08:56 KW [id number] 10/04/24 09:04 10/04/24 08:56 Wound Center Nurse 1 #5 RT 4TH TOE AMP SITE -Current Size (cm) - Length 1.6 -Current Size (cm) - Width 2 -Current Size (cm) - Depth 0.5 -Total Square Cm 3.2 -Date of Last Picture (Recall this 10/04/24 field) -Exudate Amt Small -Exudate Type Serosanguineous -Wound Margin Distinct, Outline Attached -Granulation Amt Large (67-100%) -Granulation Quality [place],Red -Necrosis Amt Small (1-33%) -Necrotic Tissue Type Adherent Slough -Texture (Bev-wound Skin Appearance) Assessed -Moisture (Bev-wound Skin Appearance) Assessed, Maceration -Color (Bev-wound Skin Appearance) Assessed -Temperature (Bev-wound Skin No Abnormality Appearance) (Pt Warm) -Tenderness on Palpation (Bev-wound No Skin Appearance) -Ulcer Cleansing Soap and Water -Foul Odor after Cleansing No -Anesthetic Used 4% Lidocaine Solution WC - Nurse 2 - General Ulcer CM Notes Start: 10/04/24 08:56 Freq: Status: Active Protocol: Activity Type Activity Date Activity User E-sign Co-sign Detail Recorded Client Recorded Date Recorded By Document 10/04/24 09:28 HELIO [id number] 10/04/24 09:35 HELIO 10/04/24 09:28 Wound Center Nurse 2 -Time 09:29 -Correct Patient Yes -Correct Side, Site, Position Yes -Correct Procedure Yes -Procedure Performed Yes -Type of Procedure Debridement -Clinical Debridement Muscle / Fascia -Tissue Removed Muscle -Post Debridement (cm) - Length 2.8 -Post Debridement (cm) - Width 0.5 -Post Debridement (cm) - Depth 2.3 -Total Square (Post) (cm) 1.40 -Area of Debridement (cm) - Length 2.8 -Area of Debridement (cm) - Width 0.5 -Total Square (Area) (cm) 1.40 -Tunneling No -Undermining/Tunneling No -Circular Undermining No -Wound/Ulcer Outcome Not Healed -Ulcer Cleansing Rinsed/ Irrigated with Saline -Foul Odor after Cleansing No -Bioengineered Tissue Yes -Type of Bioengineered Tissue Epicord -Expiration Date 03/05/29 -Product Lot Number [id number] -Percent Used 100 -Lot number of Saline Used [id number] -Bleeding Controlled with Pressure -Treatment Response Procedure Tolerated Well -Offloading Yes -Type of Offloading Surgical Shoe -Debridement - Muscle / Fascia, 1st No 20sq cm -Apply Skin Sub - 1st 25 sq cm - Feet 1 -Epicord (per sq cm) 6 Pain Scale: 0-10 Numeric Is Patient Pain Free? 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 All findings were discussed with the patient. All questions were answered to the patient's satisfaction. Excisional debridement down to and including subcutaneous tissue, muscle, fascia of the right foot full-thickness wound with a number 5 mm dermal curette without incident. Predebridement measurement was 2.0 x 0.3 x 1.7 cm. Postdebridement measurement is 2.8 x 0.5 x 2.3 cm. Epi cord 2.0 x 2.5 cm was applied to the right full-thickness ulceration with 100% use. Fourth application. The graft site was free and clear of any infection. The wound/skin graft substitute was dressed with nonadherent bandage secured in place with Steri-Strips followed by bolster dressing as well as a double layer Tubigrip. Patient will leave the skin substitute clean dry and intact of right lower extremity. He will only change the outer dressing as needed. Patient will begin HBO dives on . Patient is very grateful for his care. He will continue strict blood sugar control and monitor his blood sugar with his monitoring device. Follow-up at the wound care center with Dr. Jiang in 1 week. 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
[2024-10-05 08:24] LABS: Bedside Glucose 109 mg/dL (74-106)
[2024-10-05 08:46] LABS: Bedside Glucose 133 mg/dL (74-106)
[2024-10-05 09:35] VITALS: BP 164/88; BP 165/97; PULSE 74; PULSE 80; RESP 15; RESP 16; TEMP 35.6; TEMP 35.9
--- NOTE | 2024-10-05 10:05 | WC ---
PHOTO 10/04/24 RIGHT 4TH TOE AMP SITE
[2024-10-05 11:10] LABS: Bedside Glucose 148 mg/dL (74-106)
--- NOTE | 2024-10-05 12:57 | PCM.HBO.PN ---
History of Present Illness Date of Service: 10/05/24 Chief Complaint: HBO for Diabetic Foot Ulcer with Osteomyelitis History of Wound: Mr. Ruelas is a very pleasant 39-year-old male with diabetes coming wound care center today for evaluation for HBO therapy. He started with a blister on his foot after moving about 1.5 months ago. 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 His operative cultures were positive for proteus, MRSE, MS-CoNS, and strep which he was treated with vanc/unasyn then discharged home on Linezolid and Augmentin (he was seen inpatient by ID). He developed a full-thickness wound post op. He then was admitted to [facility] for CHF and lung exacerbations. He was discharged and referred to the wound care center by his primary doctor. Patient is a diabetic and has had blood sugars around 160 to 170 mg/dL. He is now seeing Dr. Jiang at the wound center for management of his right foot ulcer. He has history of foot ulcers on left foot/great toe, diabetic polyneuropathy, HTN, hyperlipidemia, GERD, Gastroparesis, obesity and CHF. With his most recent hospitalization at [facility], he had a cardiac echo with EF 55-60%. A CXRY that showed Borderline cardiomegaly with interstitial and alveolar haziness bilaterally, could represent mild pulmonary venous congestion. Progress of Wound: Progress: This is a first session of hyperbaric oxygen treatment. Tolerance: Hyperbaric oxygen therapy was administered as per the facility's protocol. 100% oxygen at 2 TOYIN for 90 minutes without air breaks. He tolerated hyperbaric oxygen therapy without any complaints or complications for the most part. Had some discomfort in his ear which improved with adjustment. Upon emergence from the chamber, his vitals remained stable and he was discharged in stable condition. Pre and post blood glucose readings as documented. Objective Data Objective Data Vital Signs: Vital Signs Temp Pulse Resp BP O2 Del Method 96.7 F L 74 16 165/97 H Room Air 10/05/24 09:35 10/05/24 09:35 10/05/24 09:35 10/05/24 09:35 10/04/24 08:56 Oxygen Delivery Method Room Air Weight: 366 lb Body Mass Index (BMI) 48.2 Lab / Micro Data Labs: Laboratory Results - last 24 hr 10/05/24 08:04: POC Glucose 109 H 10/05/24 08:29: POC Glucose 133 H 10/05/24 10:52: POC Glucose 148 H Exam Physical Exam Const alert, oriented x3 and no apparent distress General Appearance: cooperative, comfortable and well kempt HEENT normocephalic, head/scalp atraumatic and hearing grossly normal bilaterally Tympanic Membrane: TM's normal bilaterally Eyes EOMs intact bilaterally Neck full ROM and supple Resp normal respiratory effort and no use of accessory muscles Neuro oriented x3, CN's II-XII intact bilaterally, moves all extremities and no focal motor deficits Psych mental status grossly normal, thought process normal, cooperative and affect normal Nursing Assessment and Debridement Post-Debridement Measurements and Additional Note: Post-Debridement Measurements/Treatment WC - Nurse 1 - General Ulcer Assessment Start: 10/04/24 08:56 Freq: Status: Active Protocol: CASSIE Activity Type Activity Date Activity User E-sign Co-sign Detail Recorded Client Recorded Date Recorded By Document 10/04/24 08:56 [id number] 10/04/24 09:04 KW 10/04/24 08:56 WC - Today's Visit Information Type of service Follow-up Visit (Physician/METAL BOX MAKER ) Arrival Mode Ambulatory Patient Identification Verified (Name & Yes ) Height and Weight Body Mass Index (BMI) 48.2 BMI Classification Obese Vital Signs Temperature (97.8 F-99.1 F) 97.0 F L Temperature Source Temporal Pulse Rate (60-100) 90 Pulse Location Monitor Respiratory Rate (12-18) 18 Respiratory rate source Observation Oxygen Delivery Method Room Air Blood Pressure (90/60-120/80) 212/97 H Blood Pressure Mean (mm Hg) 135 Source Monitor Position Semi-Fowlers Blood Pressure Location Left Arm History Since Last Visit- (Skip if this is Patient's initial visit) Have you changed medications since your No last visit? Any new allergies or adverse reactions No Had a fall/change in ADL's that may No increase risk of falls Signs or symptoms of abuse and/or No neglect since last visit Have you been in the hospital since your No last visit? Has dressing in place as prescribed Yes Has compression in place as prescribed Yes Has offloadiing in place as prescribed Yes Experienced any changes in pain level or No management Left Footwear Regular Shoe Right Footwear Surgical Shoe with pressure relief insole Pain Scale: 0-10 Numeric Is Patient Pain Free? Yes WC - Nurse 1 - General Ulcer Measurement Start: 10/04/24 08:56 Freq: Status: Active Protocol: Activity Type Activity Date Activity User E-sign Co-sign Detail Recorded Client Recorded Date Recorded By Document 10/04/24 08:56 THAIS [id number] 10/04/24 09:04 THAIS 10/04/24 08:56 Wound Center Nurse 1 #5 RT 4TH TOE AMP SITE -Current Size (cm) - Length 1.6 -Current Size (cm) - Width 2 -Current Size (cm) - Depth 0.5 -Total Square Cm 3.2 -Date of Last Picture (Recall this 10/04/24 field) -Exudate Amt Small -Exudate Type Serosanguineous -Wound Margin Distinct, Outline Attached -Granulation Amt Large (67-100%) -Granulation Quality [place],Red -Necrosis Amt Small (1-33%) -Necrotic Tissue Type Adherent Slough -Texture (Bev-wound Skin Appearance) Assessed -Moisture (Bev-wound Skin Appearance) Assessed, Maceration -Color (Bve-wound Skin Appearance) Assessed -Temperature (Bev-wound Skin No Abnormality Appearance) (Pt Warm) -Tenderness on Palpation (Bev-wound No Skin Appearance) -Ulcer Cleansing Soap and Water -Foul Odor after Cleansing No -Anesthetic Used 4% Lidocaine Solution LARISSA - Nurse 2 - General Ulcer CM Notes Start: 10/04/24 08:56 Freq: Status: Active Protocol: Activity Type Activity Date Activity User E-sign Co-sign Detail Recorded Client Recorded Date Recorded By Document 10/04/24 09:28 HELIO [id number] 10/04/24 09:35 HELIO 10/04/24 09:28 Wound Center Nurse 2 -Time 09:29 -Correct Patient Yes -Correct Side, Site, Position Yes -Correct Procedure Yes -Procedure Performed Yes -Type of Procedure Debridement -Clinical Debridement Muscle / Fascia -Tissue Removed Muscle -Post Debridement (cm) - Length 2.8 -Post Debridement (cm) - Width 0.5 -Post Debridement (cm) - Depth 2.3 -Total Square (Post) (cm) 1.40 -Area of Debridement (cm) - Length 2.8 -Area of Debridement (cm) - Width 0.5 -Total Square (Area) (cm) 1.40 -Tunneling No -Undermining/Tunneling No -Circular Undermining No -Wound/Ulcer Outcome Not Healed -Ulcer Cleansing Rinsed/ Irrigated with Saline -Foul Odor after Cleansing No -Bioengineered Tissue Yes -Type of Bioengineered Tissue Epicord -Expiration Date 03/05/29 -Product Lot Number [id number] -Percent Used 100 -Lot number of Saline Used [id number] -Bleeding Controlled with Pressure -Treatment Response Procedure Tolerated Well -Offloading Yes -Type of Offloading Surgical Shoe -Debridement - Muscle / Fascia, 1st No 20sq cm -Apply Skin Sub - 1st 25 sq cm - Feet 1 -Epicord (per sq cm) 6 Pain Scale: 0-10 Numeric Is Patient Pain Free? 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 (2) Diabetic foot ulcer with osteomyelitis: CODE(S): E11.621 - Type 2 diabetes mellitus with foot ulcer; E11.69 - Type 2 diabetes mellitus with other specified complication; L97.509 - Non-pressure chronic ulcer of other part of unspecified foot with unspecified severity; M86.9 - Osteomyelitis, unspecified (3) 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 He was advised to follow-up with ENT for possible tube placement due to some discomfort on initial dive. This note was generated with [employer] software. It may contain incorrect words, spelling, and punctuation that were not noted in checking the note before signing.
[2024-10-11 09:52] LABS: Bedside Glucose 96 mg/dL (74-106)
[2024-10-11 10:22] VITALS: BP 132/73; PULSE 71; RESP 18; TEMP 35.8; BMI 48.2
[2024-10-11 11:14] LABS: Bedside Glucose 177 mg/dL (74-106)
[2024-10-11 13:20] LABS: Bedside Glucose 175 mg/dL (74-106)
[2024-10-11 13:27] VITALS: BP 134/94; BP 164/95; PULSE 71; PULSE 75; RESP 15; RESP 16; TEMP 35.8; TEMP 36.1
--- NOTE | 2024-10-11 14:35 | PCM.WC.PN ---
History of Present Illness Date of Service: 10/11/24 Chief Complaint: HBO for Diabetic Foot Ulcer with Osteomyelitis History of Wound: Mr. Ruelas is a very pleasant 39-year-old male with diabetes coming wound care center today for evaluation for HBO therapy. He started with a blister on his foot after moving about 1.5 months ago. 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 Hood, newsroom intern for partial ray amputation to the fourth metatarsal right foot. His operative cultures were positive for proteus, MRSE, MS-CoNS, and strep which he was treated with vanc/unasyn then discharged home on Linezolid and Augmentin (he was seen inpatient by ID). He developed a full-thickness wound post op. He then was admitted to [facility] for CHF and lung exacerbations. He was discharged and referred to the wound care center by his primary doctor. Patient is a diabetic and has had blood sugars around 160 to 170 mg/dL. He is now seeing Dr. Jiang at the wound center for management of his right foot ulcer. He has history of foot ulcers on left foot/great toe, diabetic polyneuropathy, HTN, hyperlipidemia, GERD, Gastroparesis, obesity and CHF. With his most recent hospitalization at [facility], he had a cardiac echo with EF 55-60%. A CXRY that showed Borderline cardiomegaly with interstitial and alveolar haziness bilaterally, could represent mild pulmonary venous congestion. Progress of Wound: Patient following with full-thickness wound to the right lower extremity. Stable no infection Subjective Subjective Mr. Ruelas is a 39-year-old diabetic male presented wound care center today follow-up evaluation of full-thickness wound secondary to fourth ray resection with amniotic skin graft substitute applied, right foot. Left the skin graft substitute, clean, dry and intact. Denies drainage. Blood sugars well-controlled. Patient is doing HBO dives as tolerated. He has been very grateful for his care. Denies trauma. Denies constitutional symptoms. No other pedal complaints at this time. Objective Data Objective Data Vital Signs: Vital Signs Temp Pulse Resp BP O2 Del Method 96.5 F L 71 15 134/94 H Room Air 10/11/24 13:27 10/11/24 13:27 10/11/24 13:27 10/11/24 13:27 10/11/24 10:22 Oxygen Delivery Method Room Air Weight: 166.015 kg Body Mass Index (BMI) 48.2 Lab / Micro Data Labs: Laboratory Results - last 24 hr 10/11/24 09:33: POC Glucose 96 10/11/24 10:56: POC Glucose 177 H 10/11/24 13:02: POC Glucose 175 H Physical Exam Narrative Vascular: DP and PT pulses are palpable to the right lower extremity. CFT is brisk. No erythema to the right foot. Nonpitting edema to the right foot and ankle. Neurological: Light touch intact. Protective station is diminished. Patient does respond to painful stimuli. Dermatological: Full-thickness wound at the level of the status post fourth ray amputation to the right foot measuring 2.0 x 0.3 x 1.8 cm. No probe to bone. No malodor. No purulent drainage noted. Excisional debridement down to and including subcutaneous tissue, muscle, fascia of the right foot full-thickness wound with a number 5 mm dermal curette without incident. Predebridement measurement was 1.9 x 0.2 x 1.5 cm. Postdebridement measurement is 2.0 x 0.3 x 1.8 cm. Epi cord 2.0 x 2.5 cm was applied to the right full-thickness ulceration with 100% use. Fifth application. The graft site was free and clear of any infection. The wound/skin graft substitute was dressed with nonadherent bandage secured in place with Steri-Strips followed by bolster dressing as well as a double layer Tubigrip. Musculoskeletal: Muscle strength is 5 out of 5 in all quadrants to the right lower extremity. No pain on palpation of the full-thickness wound. No pain with calf pressure. Debridement Note Debridement Note Debridement Free Text: Excisional debridement down to and including subcutaneous tissue, muscle, fascia of the right foot full-thickness wound with a number 5 mm dermal curette without incident. Predebridement measurement was 1.9 x 0.2 x 1.5 cm. Postdebridement measurement is 2.0 x 0.3 x 1.8 cm. Epi cord 2.0 x 2.5 cm was applied to the right full-thickness ulceration with 100% use. Fifth application. The graft site was free and clear of any infection. The wound/skin graft substitute was dressed with nonadherent bandage secured in place with Steri-Strips followed by bolster dressing as well as a double layer Tubigrip. Post-Debridement Measurements and Additional Note: Post-Debridement Measurements/Treatment - Nurse 1 - General Ulcer Assessment Start: 10/04/24 08:56 Freq: Status: Active Protocol: LARISSA.LOWHEATHER Activity Type Activity Date Activity User E-sign Co-sign Detail Recorded Client Recorded Date Recorded By Document 10/04/24 08:56 KW [id number] 10/04/24 09:04 KW Document 10/11/24 10:22 KW [id number] 10/11/24 10:32 KW 10/04/24 10/11/24 08:56 10:22 - Today's Visit Information Type of service Follow-up Visit Follow-up Visit (Physician/IRON AND STEEL WORK SUPERVISOR (Physician/IRON AND STEEL WORK SUPERVISOR ) ) Arrival Mode Ambulatory Ambulatory Patient Identification Verified (Name & Yes Yes ) Height and Weight Body Mass Index (BMI) 48.2 48.2 BMI Classification Obese Obese Vital Signs Temperature (97.8 F-99.1 F) 97.0 F L 96.5 F L Temperature Source Temporal Temporal Pulse Rate (60-100) 90 71 Pulse Location Monitor Monitor Respiratory Rate (12-18) 18 18 Respiratory rate source Observation Observation Oxygen Delivery Method Room Air Room Air Blood Pressure (90/60-120/80) 212/97 H 132/73 H Blood Pressure Mean (mm Hg) 135 92 Source Monitor Monitor Position Semi-Fowlers Semi-Fowlers Blood Pressure Location Left Arm Right Arm History Since Last Visit- (Skip if this is Patient's initial visit) Have you changed medications since your No No last visit? Any new allergies or adverse reactions No No Had a fall/change in ADL's that may No No increase risk of falls Signs or symptoms of abuse and/or No No neglect since last visit Have you been in the hospital since your No No last visit? Has dressing in place as prescribed Yes Yes Has compression in place as prescribed Yes Yes Has offloadiing in place as prescribed Yes Yes Experienced any changes in pain level or No No management Left Footwear Regular Shoe Regular Shoe Right Footwear Surgical Shoe Surgical Shoe with pressure with pressure relief insole relief insole Pain Scale: 0-10 Numeric Is Patient Pain Free? Yes Yes - Nurse 1 - General Ulcer Measurement Start: 10/04/24 08:56 Freq: Status: Active Protocol: Activity Type Activity Date Activity User E-sign Co-sign Detail Recorded Client Recorded Date Recorded By Document 10/04/24 08:56 KW [id number] 10/04/24 09:04 KW Document 10/11/24 10:22 KW [id number] 10/11/24 10:32 KW 10/04/24 10/11/24 08:56 10:22 Wound Center Nurse 1 #5 RT 4TH TOE AMP SITE -Current Size (cm) - Length 1.6 1.5 -Current Size (cm) - Width 2 1.2 -Current Size (cm) - Depth 0.5 1 -Total Square Cm 3.2 1.80 -Date of Last Picture (Recall this 10/04/24 10/11/24 field) -Exudate Amt Small Small -Exudate Type Serosanguineous Serosanguineous -Wound Margin Distinct, Distinct, Outline Outline Attached Attached -Granulation Amt Large (67-100%) Large (67-100%) -Granulation Quality [place],Red Red -Necrosis Amt Small (1-33%) -Necrotic Tissue Type Adherent Slough -Texture (Bev-wound Skin Appearance) Assessed Assessed -Moisture (Bev-wound Skin Appearance) Assessed, Assessed, Maceration Maceration -Color (Bev-wound Skin Appearance) Assessed Assessed -Temperature (Bev-wound Skin No Abnormality No Abnormality Appearance) (Pt Warm) (Pt Warm) -Tenderness on Palpation (Bev-wound No No Skin Appearance) -Ulcer Cleansing Soap and Water Soap and Water -Foul Odor after Cleansing No No -Anesthetic Used 4% Lidocaine 5% Lidocaine Solution Gel WC - Nurse 2 - General Ulcer CM Notes Start: 10/04/24 08:56 Freq: Status: Active Protocol: Activity Type Activity Date Activity User E-sign Co-sign Detail Recorded Client Recorded Date Recorded By Document 10/04/24 09:28 JF [id number] 10/04/24 09:35 JF Document 10/11/24 10:36 JF [id number] 10/11/24 10:42 JF 10/04/24 10/11/24 09:28 10:36 Wound Center Nurse 2 #5 RT 4TH TOE AMP SITE -Time 09:29 10:36 -Correct Patient Yes Yes -Correct Side, Site, Position Yes Yes -Correct Procedure Yes Yes -Procedure Performed Yes Yes -Type of Procedure Debridement Debridement -Clinical Debridement Muscle / Fascia Muscle / Fascia -Tissue Removed Muscle Muscle -Post Debridement (cm) - Length 2.8 2.0 -Post Debridement (cm) - Width 0.5 0.3 -Post Debridement (cm) - Depth 2.3 1.8 -Total Square (Post) (cm) 1.40 0.60 -Area of Debridement (cm) - Length 2.8 2.0 -Area of Debridement (cm) - Width 0.5 0.3 -Total Square (Area) (cm) 1.40 0.60 -Tunneling No No -Undermining/Tunneling No No -Circular Undermining No No -Wound/Ulcer Outcome Not Healed Not Healed -Ulcer Cleansing Rinsed/ Rinsed/ Irrigated with Irrigated with Saline Saline -Foul Odor after Cleansing No No -Bioengineered Tissue Yes Yes -Type of Bioengineered Tissue Epicord Epicord -Expiration Date 03/05/29 03/05/29 -Product Lot Number [id number] -Percent Used 100 100 -Lot number of Saline Used [id number] -Bleeding Controlled with Pressure Pressure -Treatment Response Procedure Procedure Tolerated Well Tolerated Well -Offloading Yes Yes -Type of Offloading Surgical Shoe Surgical Shoe -Debridement - Muscle / Fascia, 1st No No 20sq cm -Apply Skin Sub - 1st 25 sq cm - Feet 1 1 -Epicord (per sq cm) 6 6 Pain Scale: 0-10 Numeric Is Patient Pain Free? Yes Yes Assessment/Plan Assessment/Plan (1) Type 2 diabetes mellitus with foot ulcer: CODE(S): E11.621 - Type 2 diabetes mellitus with foot ulcer; L97.509 - Non-pressure chronic ulcer of other part of unspecified foot with unspecified severity QUALIFIERS: Diabetes mellitus long term care administrator insulin use: with long term care administrator use Qualified Code(s): E11.621 - Type 2 diabetes mellitus with foot ulcer; L97.509 - Non-pressure chronic ulcer of other part of unspecified foot with unspecified severity; Z79.4 - terminal block assembler (current) use of insulin PLAN: Patient was examined and evaluated. All findings were discussed with the patient. All questions were answered to the patient's satisfaction. Excisional debridement down to and including subcutaneous tissue, muscle, fascia of the right foot full-thickness wound with a number 5 mm dermal curette without incident. Predebridement measurement was 1.9 x 0.2 x 1.5 cm. Postdebridement measurement is 2.0 x 0.3 x 1.8 cm. Epi cord 2.0 x 2.5 cm was applied to the right full-thickness ulceration with 100% use. Fifth application. The graft site was free and clear of any infection. The wound/skin graft substitute was dressed with nonadherent bandage secured in place with Steri-Strips followed by bolster dressing as well as a double layer Tubigrip. Patient will continue his HBO dives as tolerated. Educated patient continue strict blood sugar control. Follow-up at the wound care center with Dr. Jiang in 1 week. 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
--- NOTE | 2024-10-11 15:49 | PCM.HBO.PN ---
History of Present Illness Date of Service: 10/11/24 Chief Complaint: HBO for Diabetic Foot Ulcer with Osteomyelitis History of Wound: Mr. Ruelas is a very pleasant 39-year-old male with diabetes coming wound care center today for evaluation for HBO therapy. He started with a blister on his foot after moving about 1.5 months ago. 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 His operative cultures were positive for proteus, MRSE, MS-CoNS, and strep which he was treated with vanc/unasyn then discharged home on Linezolid and Augmentin (he was seen inpatient by ID). He developed a full-thickness wound post op. He then was admitted to [facility] for CHF and lung exacerbations. He was discharged and referred to the wound care center by his primary doctor. Patient is a diabetic and has had blood sugars around 160 to 170 mg/dL. He is now seeing Dr. Jiang at the wound center for management of his right foot ulcer. He has history of foot ulcers on left foot/great toe, diabetic polyneuropathy, HTN, hyperlipidemia, GERD, Gastroparesis, obesity and CHF. With his most recent hospitalization at [facility], he had a cardiac echo with EF 55-60%. A CXRY that showed Borderline cardiomegaly with interstitial and alveolar haziness bilaterally, could represent mild pulmonary venous congestion. Progress of Wound: This is his 2nd session of hyperbaric oxygen treatment. Tolerance: Hyperbaric oxygen therapy was administered as per the facility's protocol. 100% oxygen at 2 TOYIN for 90 minutes without air breaks. He tolerated hyperbaric oxygen therapy without any complaints or complications for the most part. Upon emergence from the chamber, his vitals remained stable and he was discharged in stable condition. Pre and post blood glucose readings as documented. Objective Data Objective Data Vital Signs: Vital Signs Temp Pulse Resp BP O2 Del Method 96.5 F L 71 15 134/94 H Room Air 10/11/24 13:27 10/11/24 13:27 10/11/24 13:27 10/11/24 13:27 10/11/24 10:22 Oxygen Delivery Method Room Air Weight: 366 lb Body Mass Index (BMI) 48.2 Lab / Micro Data Labs: Laboratory Results - last 24 hr 10/11/24 09:33: POC Glucose 96 10/11/24 10:56: POC Glucose 177 H 10/11/24 13:02: POC Glucose 175 H Exam Physical Exam Const alert, oriented x3 and no apparent distress General Appearance: cooperative HEENT normocephalic and TM's normal bilaterally Resp normal respiratory effort, no use of accessory muscles and clear to auscultation bilaterally Effort and Inspection: able to speak in complete sentences Cardio regular rate and regular rhythm Psych affect normal Appearance: grossly normal Nursing Assessment and Debridement Post-Debridement Measurements and Additional Note: Post-Debridement Measurements/Treatment - Nurse 1 - General Ulcer Assessment Start: 10/04/24 08:56 Freq: Status: Active Protocol: CASSIE Activity Type Activity Date Activity User E-sign Co-sign Detail Recorded Client Recorded Date Recorded By Document 10/11/24 10:22 THAIS [id number] 10/11/24 10:32 THAIS 10/11/24 10:22 WC - Today's Visit Information Type of service Follow-up Visit (Physician/RIPRAP MAN ) Arrival Mode Ambulatory Patient Identification Verified (Name & Yes ) Height and Weight Body Mass Index (BMI) 48.2 BMI Classification Obese Vital Signs Temperature (97.8 F-99.1 F) 96.5 F L Temperature Source Temporal Pulse Rate (60-100) 71 Pulse Location Monitor Respiratory Rate (12-18) 18 Respiratory rate source Observation Oxygen Delivery Method Room Air Blood Pressure (90/60-120/80) 132/73 H Blood Pressure Mean (mm Hg) 92 Source Monitor Position Semi-Fowlers Blood Pressure Location Right Arm History Since Last Visit- (Skip if this is Patient's initial visit) Have you changed medications since your No last visit? Any new allergies or adverse reactions No Had a fall/change in ADL's that may No increase risk of falls Signs or symptoms of abuse and/or No neglect since last visit Have you been in the hospital since your No last visit? Has dressing in place as prescribed Yes Has compression in place as prescribed Yes Has offloadiing in place as prescribed Yes Experienced any changes in pain level or No management Left Footwear Regular Shoe Right Footwear Surgical Shoe with pressure relief insole Pain Scale: 0-10 Numeric Is Patient Pain Free? Yes - Nurse 1 - General Ulcer Measurement Start: 10/04/24 08:56 Freq: Status: Active Protocol: Activity Type Activity Date Activity User E-sign Co-sign Detail Recorded Client Recorded Date Recorded By Document 10/11/24 10:22 THAIS [id number] 10/11/24 10:32 KW 10/11/24 10:22 Wound Center Nurse 1 #5 RT 4TH TOE AMP SITE -Current Size (cm) - Length 1.5 -Current Size (cm) - Width 1.2 -Current Size (cm) - Depth 1 -Total Square Cm 1.80 -Date of Last Picture (Recall this 10/11/24 field) -Exudate Amt Small -Exudate Type Serosanguineous -Wound Margin Distinct, Outline Attached -Granulation Amt Large (67-100%) -Granulation Quality Red -Texture (Bev-wound Skin Appearance) Assessed -Moisture (Bev-wound Skin Appearance) Assessed, Maceration -Color (Bev-wound Skin Appearance) Assessed -Temperature (Bev-wound Skin No Abnormality Appearance) (Pt Warm) -Tenderness on Palpation (Bev-wound No Skin Appearance) -Ulcer Cleansing Soap and Water -Foul Odor after Cleansing No -Anesthetic Used 5% Lidocaine Gel WC - Nurse 2 - General Ulcer CM Notes Start: 10/04/24 08:56 Freq: Status: Active Protocol: Activity Type Activity Date Activity User E-sign Co-sign Detail Recorded Client Recorded Date Recorded By Document 10/11/24 10:36 HELIO [id number] 10/11/24 10:42 HELIO 10/11/24 10:36 Wound Center Nurse 2 -Time 10:36 -Correct Patient Yes -Correct Side, Site, Position Yes -Correct Procedure Yes -Procedure Performed Yes -Type of Procedure Debridement -Clinical Debridement Muscle / Fascia -Tissue Removed Muscle -Post Debridement (cm) - Length 2.0 -Post Debridement (cm) - Width 0.3 -Post Debridement (cm) - Depth 1.8 -Total Square (Post) (cm) 0.60 -Area of Debridement (cm) - Length 2.0 -Area of Debridement (cm) - Width 0.3 -Total Square (Area) (cm) 0.60 -Tunneling No -Undermining/Tunneling No -Circular Undermining No -Wound/Ulcer Outcome Not Healed -Ulcer Cleansing Rinsed/ Irrigated with Saline -Foul Odor after Cleansing No -Bioengineered Tissue Yes -Type of Bioengineered Tissue Epicord -Expiration Date 03/05/29 -Product Lot Number [id number] -Percent Used 100 -Lot number of Saline Used [id number] -Bleeding Controlled with Pressure -Treatment Response Procedure Tolerated Well -Offloading Yes -Type of Offloading Surgical Shoe -Debridement - Muscle / Fascia, 1st No 20sq cm -Apply Skin Sub - 1st 25 sq cm - Feet 1 -Epicord (per sq cm) 6 Pain Scale: 0-10 Numeric Is Patient Pain Free? Yes Charges/Coding Wound Center CF Procedures HBO Supervision: [id number] Hyperbaric Oxygen; supervision Assessment/Plan Assessment/Plan (1) Type 2 diabetes mellitus with foot ulcer: CODE(S): E11.621 - Type 2 diabetes mellitus with foot ulcer; L97.509 - Non-pressure chronic ulcer of other part of unspecified foot with unspecified severity QUALIFIERS: Diabetes mellitus regional intermodal truck driver insulin use: with regional intermodal truck driver use Qualified Code(s): E11.621 - Type 2 diabetes mellitus with foot ulcer; L97.509 - Non-pressure chronic ulcer of other part of unspecified foot with unspecified severity; Z79.4 - buttermaker (current) use of insulin (2) Diabetic foot ulcer with osteomyelitis: CODE(S): E11.621 - Type 2 diabetes mellitus with foot ulcer; E11.69 - Type 2 diabetes mellitus with other specified complication; L97.509 - Non-pressure chronic ulcer of other part of unspecified foot with unspecified severity; M86.9 - Osteomyelitis, unspecified (3) 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 He was evaluated by ENT for possible tube placement due to some discomfort on initial dive, but they determined that he does not need to have tubes placed.
[2024-10-11 19:25] LABS: Bedside Glucose 125 mg/dL (74-106)
--- NOTE | 2024-10-12 10:36 | WC ---
PHOTO 10/11/[address] [place] [address]
[2024-10-16 09:42] LABS: Bedside Glucose 162 mg/dL (74-106)
--- NOTE | 2024-10-16 09:57 | PCM.HBO.PN ---
History of Present Illness Date of Service: 10/16/24 Chief Complaint: HBO for Diabetic Foot Ulcer with Osteomyelitis History of Wound: Mr. Ruelas is a very pleasant 39-year-old male with diabetes coming wound care center today for evaluation for HBO therapy. He started with a blister on his foot after moving about 1.5 months ago. 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 Hood, outpatient services director for partial ray amputation to the fourth metatarsal right foot. His operative cultures were positive for proteus, MRSE, MS-CoNS, and strep which he was treated with vanc/unasyn then discharged home on Linezolid and Augmentin (he was seen inpatient by ID). He developed a full-thickness wound post op. He then was admitted to [facility] for CHF and lung exacerbations. He was discharged and referred to the wound care center by his primary doctor. Patient is a diabetic and has had blood sugars around 160 to 170 mg/dL. He is now seeing Dr. Jiang at the wound center for management of his right foot ulcer. He has history of foot ulcers on left foot/great toe, diabetic polyneuropathy, HTN, hyperlipidemia, GERD, Gastroparesis, obesity and CHF. With his most recent hospitalization at [facility], he had a cardiac echo with EF 55-60%. A CXRY that showed Borderline cardiomegaly with interstitial and alveolar haziness bilaterally, could represent mild pulmonary venous congestion. Progress of Wound: This is his 3rd session of hyperbaric oxygen treatment. Tolerance: Hyperbaric oxygen therapy was administered as per the facility's protocol. 100% oxygen at 2 TOYIN for 90 minutes without air breaks. He tolerated hyperbaric oxygen therapy without any complaints or complications for the most part. Upon emergence from the chamber, his vitals remained stable and he was discharged in stable condition. Pre and post blood glucose readings as documented. Objective Data Objective Data Vital Signs: Vital Signs Temp Pulse Resp BP O2 Del Method 96.5 F L 71 15 134/94 H Room Air 10/11/24 13:27 10/11/24 13:27 10/11/24 13:27 10/11/24 13:27 10/11/24 10:22 Oxygen Delivery Method Room Air Weight: 366 lb Body Mass Index (BMI) 48.2 Lab / Micro Data Labs: Laboratory Results - last 24 hr 10/16/24 09:25: POC Glucose 162 H Exam Physical Exam Const alert, oriented x3 and no apparent distress General Appearance: cooperative HEENT normocephalic HEENT Narrative: TMs visualized, but tortuous external auditory canal, so could not see the bony landmarks, but saw a clear posterior aspect of the TM that with no bulging,redness, or fluid collections. Resp normal respiratory effort, no use of accessory muscles and clear to auscultation bilaterally Effort and Inspection: able to speak in complete sentences Cardio regular rate and regular rhythm Psych affect normal Appearance: grossly normal Charges/Coding Wound Center CF Procedures HBO Supervision: [id number] Hyperbaric Oxygen; supervision Assessment/Plan Assessment/Plan (1) Type 2 diabetes mellitus with foot ulcer: CODE(S): E11.621 - Type 2 diabetes mellitus with foot ulcer; L97.509 - Non-pressure chronic ulcer of other part of unspecified foot with unspecified severity QUALIFIERS: Diabetes mellitus long term care pharmacist insulin use: with long term care pharmacist use Qualified Code(s): E11.621 - Type 2 diabetes mellitus with foot ulcer; L97.509 - Non-pressure chronic ulcer of other part of unspecified foot with unspecified severity; Z79.4 - [facility] (current) use of insulin (2) Diabetic foot ulcer with osteomyelitis: CODE(S): E11.621 - Type 2 diabetes mellitus with foot ulcer; E11.69 - Type 2 diabetes mellitus with other specified complication; L97.509 - Non-pressure chronic ulcer of other part of unspecified foot with unspecified severity; M86.9 - Osteomyelitis, unspecified (3) 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 He was evaluated by ENT for possible tube placement due to some discomfort on initial dive, but they determined that he does not need to have tubes placed. Doing well and appears to be benefiting from HBOT.
[2024-10-16 10:09] VITALS: BP 136/72; BP 141/90; PULSE 64; PULSE 68; RESP 15; RESP 16; TEMP 35.4; TEMP 35.9
[2024-10-16 12:03] LABS: Bedside Glucose 111 mg/dL (74-106)
[2024-10-17 13:16] VITALS: BP 150/91; BP 164/83; PULSE 76; PULSE 77; RESP 14; RESP 15; TEMP 35.2; TEMP 35.8
[2024-10-17 13:26] LABS: Bedside Glucose 165 mg/dL (74-106)
[2024-10-17 15:32] LABS: Bedside Glucose 111 mg/dL (74-106)
[2024-10-18 09:38] LABS: Bedside Glucose 195 mg/dL (74-106)
[2024-10-18 10:12] VITALS: BP 127/66; BP 161/77; PULSE 69; PULSE 72; RESP 14; RESP 15; TEMP 35.8
[2024-10-18 11:53] LABS: Bedside Glucose 217 mg/dL (74-106)
[2024-10-18 12:27] VITALS: BP 127/66; PULSE 72; RESP 18; TEMP 35.8; BMI 48.2
--- NOTE | 2024-10-18 12:33 | PCM.HBO.PN ---
History of Present Illness Date of Service: 10/18/24 Chief Complaint: HBO for Diabetic Foot Ulcer with Osteomyelitis History of Wound: Mr. Ruelas is a very pleasant 39-year-old male with diabetes coming wound care center today for evaluation for HBO therapy. He started with a blister on his foot after moving about 1.5 months ago. 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 Hood, balling head tender for partial ray amputation to the fourth metatarsal right foot. His operative cultures were positive for proteus, MRSE, MS-CoNS, and strep which he was treated with vanc/unasyn then discharged home on Linezolid and Augmentin (he was seen inpatient by ID). He developed a full-thickness wound post op. He then was admitted to [facility] for CHF and lung exacerbations. He was discharged and referred to the wound care center by his primary doctor. Patient is a diabetic and has had blood sugars around 160 to 170 mg/dL. He is now seeing Dr. Jiang at the wound center for management of his right foot ulcer. He has history of foot ulcers on left foot/great toe, diabetic polyneuropathy, HTN, hyperlipidemia, GERD, Gastroparesis, obesity and CHF. With his most recent hospitalization at [facility], he had a cardiac echo with EF 55-60%. A CXRY that showed Borderline cardiomegaly with interstitial and alveolar haziness bilaterally, could represent mild pulmonary venous congestion. Progress of Wound: This is his 4th session of hyperbaric oxygen treatment. Tolerance: Hyperbaric oxygen therapy was administered as per the facility's protocol. 100% oxygen at 2 TOYIN for 90 minutes without air breaks. He tolerated hyperbaric oxygen therapy without any complaints or complications for the most part. Upon emergence from the chamber, his vitals remained stable and he was discharged in stable condition. Pre and post blood glucose readings as documented. Subjective Subjective Patient had no concerns tolerating treatment Objective Data Objective Data Vital signs stable on admission and discharge no concerns doing well Vital Signs: Vital Signs Temp Pulse Resp BP O2 Del Method 96.5 F L 72 18 127/66 H Room Air 10/18/24 12:27 10/18/24 12:27 10/18/24 12:27 10/18/24 12:27 10/11/24 10:22 Oxygen Delivery Method Room Air Weight: 366 lb Body Mass Index (BMI) 48.2 Lab / Micro Data Attestation: I reviewed the patient's lab results. Labs: Laboratory Results - last 24 hr 10/17/24 13:09: POC Glucose 165 H 10/17/24 15:09: POC Glucose 111 H 10/18/24 09:21: POC Glucose 195 H 10/18/24 11:29: POC Glucose 217 H Exam Physical Exam Const alert, oriented x3 and no apparent distress General Appearance: cooperative HEENT normocephalic and TM's normal bilaterally Resp normal respiratory effort, no use of accessory muscles and clear to auscultation bilaterally Effort and Inspection: able to speak in complete sentences Cardio regular rate and regular rhythm Psych affect normal Appearance: grossly normal Nursing Assessment and Debridement Post-Debridement Measurements and Additional Note: Post-Debridement Measurements/Treatment WC - Nurse 1 - General Ulcer Assessment Start: 10/04/24 08:56 Freq: Status: Active Protocol: [email or web address] Activity Type Activity Date Activity User E-sign Co-sign Detail Recorded Client Recorded Date Recorded By Document 10/18/24 12:27 RB [id number] 10/18/24 12:30 RB 10/18/24 12:27 WC - Today's Visit Information Type of service Follow-up Visit (Physician/HEAD OF DATA ) Arrival Mode Ambulatory Transfer Assistance None Patient Identification Verified (Name & Yes ) Patient Requires Transmission-Based No Precautions Finger Stick Blood Sugar(mg/dl) (if 195 indicated): Blood Sugar Stated by Patient Height and Weight Body Mass Index (BMI) 48.2 BMI Classification Obese Vital Signs Temperature (97.8 F-99.1 F) 96.5 F L Temperature Source Temporal Pulse Rate (60-100) 72 Pulse Location Monitor Respiratory Rate (12-18) 18 Respiratory rate source Observation Blood Pressure (90/60-120/80) 127/66 H Blood Pressure Mean (mm Hg) 86 Source Monitor Position Semi-Fowlers Blood Pressure Location Left Arm History Since Last Visit- (Skip if this is Patient's initial visit) Have you changed medications since your No last visit? Any new allergies or adverse reactions No Had a fall/change in ADL's that may No increase risk of falls Signs or symptoms of abuse and/or No neglect since last visit Have you been in the hospital since your No last visit? Has dressing in place as prescribed Yes Has compression in place as prescribed N/A Has offloadiing in place as prescribed Yes Experienced any changes in pain level or No management Left Footwear Regular Shoe Right Footwear Surgical Shoe with pressure relief insole Pain Scale: 0-10 Numeric Is Patient Pain Free? Yes WC - Nurse 1 - General Ulcer Measurement Start: 10/04/24 08:56 Freq: Status: Active Protocol: Activity Type Activity Date Activity User E-sign Co-sign Detail Recorded Client Recorded Date Recorded By Document 10/18/24 12:27 RB [id number] 10/18/24 12:30 RB 10/18/24 12:27 Wound Center Nurse 1 #5 RT 4TH TOE AMP SITE -Combined with other wound No -Current Size (cm) - Length 0.1 -Current Size (cm) - Width 0.1 -Current Size (cm) - Depth 0.1 -Total Square Cm 0.01 -Photo Taken Yes -Tunneling No -Undermining/Tunneling No -Circular Undermining No -Exudate Amt Medium -Exudate Type Serosanguineous -Wound Margin Distinct, Outline Attached -Granulation Amt Medium (34-66%) -Granulation Quality [place] -Slough/Fibrin Yes -Necrosis Amt Medium (34-66%) -Necrotic Tissue Type Adherent Slough -Structure Exposed N/A -Texture (Bev-wound Skin Appearance) Assessed, Scarring -Moisture (Bev-wound Skin Appearance) Assessed -Color (Bev-wound Skin Appearance) Assessed -Temperature (Bev-wound Skin No Abnormality Appearance) (Pt Warm) -Tenderness on Palpation (Bev-wound No Skin Appearance) -Ulcer Cleansing Wound Cleanser -Foul Odor after Cleansing No -Anesthetic Used 5% Lidocaine Gel Lower Limb Edema Present Yes Right Calf (cm) 44 Right Ankle (cm) 27 Assessment/Plan Assessment/Plan (1) Type 2 diabetes mellitus with foot ulcer: CODE(S): E11.621 - Type 2 diabetes mellitus with foot ulcer; L97.509 - Non-pressure chronic ulcer of other part of unspecified foot with unspecified severity QUALIFIERS: Diabetes mellitus halfway insulin use: with ferry terminal supervisor use Qualified Code(s): E11.621 - Type 2 diabetes mellitus with foot ulcer; L97.509 - Non-pressure chronic ulcer of other part of unspecified foot with unspecified severity; Z79.4 - ferry terminal supervisor (current) use of insulin (2) Diabetic foot ulcer with osteomyelitis: CODE(S): E11.621 - Type 2 diabetes mellitus with foot ulcer; E11.69 - Type 2 diabetes mellitus with other specified complication; L97.509 - Non-pressure chronic ulcer of other part of unspecified foot with unspecified severity; M86.9 - Osteomyelitis, unspecified (3) 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 He was evaluated by ENT for possible tube placement due to some discomfort on initial dive, but they determined that he does not need to have tubes placed. Doing well and appears to be benefiting from HBOT.
--- NOTE | 2024-10-18 14:01 | PCM.WC.PN ---
History of Present Illness Date of Service: 10/18/24 Chief Complaint: HBO for Diabetic Foot Ulcer with Osteomyelitis History of Wound: Mr. Ruelas is a very pleasant 39-year-old male with diabetes coming wound care center today for evaluation for HBO therapy. He started with a blister on his foot after moving about 1.5 months ago. 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 Hood, restorative art embalmer for partial ray amputation to the fourth metatarsal right foot. His operative cultures were positive for proteus, MRSE, MS-CoNS, and strep which he was treated with vanc/unasyn then discharged home on Linezolid and Augmentin (he was seen inpatient by ID). He developed a full-thickness wound post op. He then was admitted to [facility] for CHF and lung exacerbations. He was discharged and referred to the wound care center by his primary doctor. Patient is a diabetic and has had blood sugars around 160 to 170 mg/dL. He is now seeing Dr. Jiang at the wound center for management of his right foot ulcer. He has history of foot ulcers on left foot/great toe, diabetic polyneuropathy, HTN, hyperlipidemia, GERD, Gastroparesis, obesity and CHF. With his most recent hospitalization at [facility], he had a cardiac echo with EF 55-60%. A CXRY that showed Borderline cardiomegaly with interstitial and alveolar haziness bilaterally, could represent mild pulmonary venous congestion. Progress of Wound: This is his 4th session of hyperbaric oxygen treatment. Tolerance: Hyperbaric oxygen therapy was administered as per the facility's protocol. 100% oxygen at 2 TOYIN for 90 minutes without air breaks. He tolerated hyperbaric oxygen therapy without any complaints or complications for the most part. Upon emergence from the chamber, his vitals remained stable and he was discharged in stable condition. Pre and post blood glucose readings as documented. Subjective Subjective Mr. Ruelas is a 39-year-old diabetic male presenting to wound care center today for follow-up evaluation of full-thickness wound secondary to fourth ray resection with amniotic skin graft substitute to the right extremity. He has been doing successful HBO dives. He notices great improvement to the wound. Patient is grateful for his care. Denies trauma. Denies pain. Denies constitutional symptoms. No other pedal complaints at this time. Objective Data Objective Data Vital Signs: Vital Signs Temp Pulse Resp BP O2 Del Method 96.5 F L 72 18 127/66 H Room Air 10/18/24 12:27 10/18/24 12:27 10/18/24 12:27 10/18/24 12:27 10/11/24 10:22 Oxygen Delivery Method Room Air Weight: 166.015 kg Body Mass Index (BMI) 48.2 Lab / Micro Data Labs: Laboratory Results - last 24 hr 10/17/24 15:09: POC Glucose 111 H 10/18/24 09:21: POC Glucose 195 H 10/18/24 11:29: POC Glucose 217 H Physical Exam Narrative Vascular: DP and PT pulses are palpable to the right lower extremity. CFT is brisk. No erythema to the right foot. Nonpitting edema to the right foot and ankle. Neurological: Light touch intact. Protective station is diminished. Patient does respond to painful stimuli. Dermatological: Full-thickness wound at the level of the status post fourth ray amputation to the right foot measuring 1.5 x 0.2 x 1.3 cm. No probe to bone. No malodor. No purulent drainage noted. Excisional debridement down to and including subcutaneous tissue, muscle, fascia of the right foot full-thickness wound with a number 5 mm dermal curette without incident. Predebridement measurement was 1.3 x 0.1 x 1.0 cm. Postdebridement measurement is 1.5 x 0.2 x 1.3 cm. EpiFix 18 mm disc cm was applied to the right full-thickness ulceration with 100% use. Sixth application. The graft site was free and clear of any infection. The wound/skin graft substitute was dressed with nonadherent bandage secured in place with Steri-Strips followed by bolster dressing as well as a double layer Tubigrip. Musculoskeletal: Muscle strength is 5 out of 5 in all quadrants to the right lower extremity. No pain on palpation of the full-thickness wound. No pain with calf pressure. Debridement Note Debridement Note Debridement Free Text: Excisional debridement down to and including subcutaneous tissue, muscle, fascia of the right foot full-thickness wound with a number 5 mm dermal curette without incident. Predebridement measurement was 1.3 x 0.1 x 1.0 cm. Postdebridement measurement is 1.5 x 0.2 x 1.3 cm. EpiFix 18 mm disc cm was applied to the right full-thickness ulceration with 100% use. Sixth application. The graft site was free and clear of any infection. The wound/skin graft substitute was dressed with nonadherent bandage secured in place with Steri-Strips followed by bolster dressing as well as a double layer Tubigrip. Post-Debridement Measurements and Additional Note: Post-Debridement Measurements/Treatment - Nurse 1 - General Ulcer Assessment Start: 10/04/24 08:56 Freq: Status: Active Protocol: LARISSA.LOWEXCathy Activity Type Activity Date Activity User E-sign Co-sign Detail Recorded Client Recorded Date Recorded By Document 10/04/24 08:56 KW [id number] 10/04/24 09:04 KW Document 10/11/24 10:22 KW [id number] 10/11/24 10:32 KW Document 10/18/24 12:27 RB [id number] 10/18/24 12:30 RB 10/04/24 10/11/24 10/18/24 08:56 10:22 12:27 - Today's Visit Information Type of service Follow-up Visit Follow-up Visit Follow-up Visit (Physician/GRANTS DIRECTOR (Physician/GRANTS DIRECTOR (Physician/GRANTS DIRECTOR ) ) ) Arrival Mode Ambulatory Ambulatory Ambulatory Transfer Assistance None Patient Identification Verified (Name & Yes Yes Yes ) Patient Requires Transmission-Based No Precautions Finger Stick Blood Sugar(mg/dl) (if 195 indicated): Blood Sugar Stated by Patient Height and Weight Body Mass Index (BMI) 48.2 48.2 48.2 BMI Classification Obese Obese Obese Vital Signs Temperature (97.8 F-99.1 F) 97.0 F L 96.5 F L 96.5 F L Temperature Source Temporal Temporal Temporal Pulse Rate (60-100) 90 71 72 Pulse Location Monitor Monitor Monitor Respiratory Rate (12-18) 18 18 18 Respiratory rate source Observation Observation Observation Oxygen Delivery Method Room Air Room Air Blood Pressure (90/60-120/80) 212/97 H 132/73 H 127/66 H Blood Pressure Mean (mm Hg) 135 92 86 Source Monitor Monitor Monitor Position Semi-Fowlers Semi-Fowlers Semi-Fowlers Blood Pressure Location Left Arm Right Arm Left Arm History Since Last Visit- (Skip if this is Patient's initial visit) Have you changed medications since your No No No last visit? Any new allergies or adverse reactions No No No Had a fall/change in ADL's that may No No No increase risk of falls Signs or symptoms of abuse and/or No No No neglect since last visit Have you been in the hospital since your No No No last visit? Has dressing in place as prescribed Yes Yes Yes Has compression in place as prescribed Yes Yes N/A Has offloadiing in place as prescribed Yes Yes Yes Experienced any changes in pain level or No No No management Left Footwear Regular Shoe Regular Shoe Regular Shoe Right Footwear Surgical Shoe Surgical Shoe Surgical Shoe with pressure with pressure with pressure relief insole relief insole relief insole Pain Scale: 0-10 Numeric Is Patient Pain Free? Yes Yes Yes WC - Nurse 1 - General Ulcer Measurement Start: 10/04/24 08:56 Freq: Status: Active Protocol: Activity Type Activity Date Activity User E-sign Co-sign Detail Recorded Client Recorded Date Recorded By Document 10/04/24 08:56 KW [id number] 10/04/24 09:04 KW Document 10/11/24 10:22 KW [id number] 10/11/24 10:32 KW Document 10/18/24 12:27 RB [id number] 10/18/24 12:30 RB 10/04/24 10/11/24 10/18/24 08:56 10:22 12:27 Wound Center Nurse 1 #5 RT 4TH TOE AMP SITE -Combined with other wound No -Current Size (cm) - Length 1.6 1.5 0.1 -Current Size (cm) - Width 2 1.2 0.1 -Current Size (cm) - Depth 0.5 1 0.1 -Total Square Cm 3.2 1.80 0.01 -Date of Last Picture (Recall this 10/04/24 10/11/24 field) -Photo Taken Yes -Tunneling No -Undermining/Tunneling No -Circular Undermining No -Exudate Amt Small Small Medium -Exudate Type Serosanguineous Serosanguineous Serosanguineous -Wound Margin Distinct, Distinct, Distinct, Outline Outline Outline Attached Attached Attached -Granulation Amt Large (67-100%) Large (67-100%) Medium (34-66%) -Granulation Quality [place],Red Red [place] -Slough/Fibrin Yes -Necrosis Amt Small (1-33%) Medium (34-66%) -Necrotic Tissue Type Adherent Slough Adherent Slough -Structure Exposed N/A -Texture (Bev-wound Skin Appearance) Assessed Assessed Assessed, Scarring -Moisture (Bev-wound Skin Appearance) Assessed, Assessed, Assessed Maceration Maceration -Color (Bev-wound Skin Appearance) Assessed Assessed Assessed -Temperature (Bev-wound Skin No Abnormality No Abnormality No Abnormality Appearance) (Pt Warm) (Pt Warm) (Pt Warm) -Tenderness on Palpation (Bev-wound No No No Skin Appearance) -Ulcer Cleansing Soap and Water Soap and Water Wound Cleanser -Foul Odor after Cleansing No No No -Anesthetic Used 4% Lidocaine 5% Lidocaine 5% Lidocaine Solution Gel Gel Lower Limb Edema Present Yes Right Calf (cm) 44 Right Ankle (cm) 27 WC - Nurse 2 - General Ulcer CM Notes Start: 10/04/24 08:56 Freq: Status: Active Protocol: Activity Type Activity Date Activity User E-sign Co-sign Detail Recorded Client Recorded Date Recorded By Document 10/04/24 09:28 [id number] 10/04/24 09:35 Document 10/11/24 10:36 [id number] 10/11/24 10:42 Document 10/18/24 12:50 [id number] 10/18/24 12:52 10/04/24 10/11/24 10/18/24 09:28 10:36 12:50 Wound Center Nurse 2 #5 RT 4TH TOE AMP SITE -Time 09:29 10:36 12:51 -Correct Patient Yes Yes Yes -Correct Side, Site, Position Yes Yes Yes -Correct Procedure Yes Yes Yes -Procedure Performed Yes Yes Yes -Type of Procedure Debridement Debridement Debridement -Clinical Debridement Muscle / Fascia Muscle / Fascia Subcutaneous -Tissue Removed Muscle Muscle Subcutaneous -Post Debridement (cm) - Length 2.8 2.0 1.5 -Post Debridement (cm) - Width 0.5 0.3 0.2 -Post Debridement (cm) - Depth 2.3 1.8 1.3 -Total Square (Post) (cm) 1.40 0.60 0.30 -Area of Debridement (cm) - Length 2.8 2.0 1.5 -Area of Debridement (cm) - Width 0.5 0.3 0.2 -Total Square (Area) (cm) 1.40 0.60 0.30 -Tunneling No No No -Undermining/Tunneling No No No -Circular Undermining No No No -Wound/Ulcer Outcome Not Healed Not Healed Not Healed -Ulcer Cleansing Rinsed/ Rinsed/ Rinsed/ Irrigated with Irrigated with Irrigated with Saline Saline Saline -Foul Odor after Cleansing No No No -Bioengineered Tissue Yes Yes Yes -Type of Bioengineered Tissue Epicord Epicord Epifix 18mm Disc -Expiration Date 03/05/29 03/05/29 05/05/29 -Product Lot Number [id number] -Percent Used 100 100 100 -Lot number of Saline Used [id number] -Bleeding Controlled with Pressure Pressure Pressure -Treatment Response Procedure Procedure Procedure Tolerated Well Tolerated Well Tolerated Well -Offloading Yes Yes Yes -Type of Offloading Surgical Shoe Surgical Shoe Surgical Shoe -Debridement - Subq, 1st 20sq cm No -Debridement - Muscle / Fascia, 1st No No 20sq cm -Apply Skin Sub - 1st 25 sq cm - Feet 1 1 1 -Epicord Application 1-4 (per sq cm) 6 6 -Epifix 18mm Disc Application 1-4 3 Pain Scale: 0-10 Numeric Is Patient Pain Free? Yes Yes Yes WC - Nurse 3 - General Ulcer D/C NN Start: 10/04/24 08:56 Freq: Status: Active Protocol: Activity Type Activity Date Activity User E-sign Co-sign Detail Recorded Client Recorded Date Recorded By Document 10/04/24 10:00 DS [id number] 10/17/24 10:58 DS Document 10/11/24 10:45 DS [id number] 10/17/24 11:00 DS Document 10/18/24 13:08 RB [id number] 10/18/24 13:08 RB 10/04/24 10/11/24 10/18/24 10:00 10:45 13:08 Wound Care Center Nurse 3 #5 RT 4TH TOE AMP SITE -Primary Dressing Applied C Hydrogel C Hydrogel -Primary Dressing Covered/Secured with Dry Gauze, Dry Gauze, Dry Gauze & Secured with Secured with Roll Gauze, Tape Tape Secured with Tape -Hydrogel 0 0 RLE -Compression Wrap Farhat Wrap Farhat Wrap -Other farhat Treatment Response Procedure Tolerated Well Pain Scale: 0-10 Numeric Is Patient Pain Free? Yes Yes Yes WC - Visit Discharge Discharge Condition Stable Stable Stable Ambulatory Status Ambulatory Ambulatory Ambulatory Transportation hospital Private Auto transportation Medication Reconcilliation completed & No provided to patient/care provider Clinical Summary of Care Provided Yes Notes: going to do HBO dive Assessment/Plan Assessment/Plan (1) Type 2 diabetes mellitus with foot ulcer: CODE(S): E11.621 - Type 2 diabetes mellitus with foot ulcer; L97.509 - Non-pressure chronic ulcer of other part of unspecified foot with unspecified severity QUALIFIERS: Diabetes mellitus long term care pharmacist insulin use: with long term care pharmacist use Qualified Code(s): E11.621 - Type 2 diabetes mellitus with foot ulcer; L97.509 - Non-pressure chronic ulcer of other part of unspecified foot with unspecified severity; Z79.4 - long term care social worker (current) use of insulin PLAN: Patient was examined and evaluated. All findings were discussed with the patient. All questions were answered to the patient's satisfaction. Excisional debridement down to and including subcutaneous tissue, muscle, fascia of the right foot full-thickness wound with a number 5 mm dermal curette without incident. Predebridement measurement was 1.3 x 0.1 x 1.0 cm. Postdebridement measurement is 1.5 x 0.2 x 1.3 cm. EpiFix 18 mm disc cm was applied to the right full-thickness ulceration with 100% use. Sixth application. The graft site was free and clear of any infection. The wound/skin graft substitute was dressed with nonadherent bandage secured in place with Steri-Strips followed by bolster dressing as well as a double layer Tubigrip. Patient will continue his HBO dives as tolerated. Educated patient continue strict blood sugar control. Follow-up at the wound care center with Dr. Jiang in 1 week. 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
[2024-10-19 09:38] LABS: Bedside Glucose 143 mg/dL (74-106)
--- NOTE | 2024-10-19 09:54 | WC ---
PHOTO 10/18/[address] [place] [address] SITE
[2024-10-19 11:22] LABS: Bedside Glucose 149 mg/dL (74-106)
[2024-10-19 11:39] LABS: Bedside Glucose 156 mg/dL (74-106)
[2024-10-19 11:43] VITALS: BP 154/91; BP 157/88; PULSE 68; PULSE 83; RESP 14; RESP 15; TEMP 35.8; TEMP 36.1
--- NOTE | 2024-10-19 14:09 | PCM.HBO.PN ---
History of Present Illness Date of Service: 10/19/24 Chief Complaint: HBO for Diabetic Foot Ulcer with Osteomyelitis History of Wound: Mr. Ruelas is a very pleasant 39-year-old male with diabetes coming wound care center today for evaluation for HBO therapy. He started with a blister on his foot after moving about 1.5 months ago. 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 His operative cultures were positive for proteus, MRSE, MS-CoNS, and strep which he was treated with vanc/unasyn then discharged home on Linezolid and Augmentin (he was seen inpatient by ID). He developed a full-thickness wound post op. He then was admitted to [facility] for CHF and lung exacerbations. He was discharged and referred to the wound care center by his primary doctor. Patient is a diabetic and has had blood sugars around 160 to 170 mg/dL. He is now seeing Dr. Jiang at the wound center for management of his right foot ulcer. He has history of foot ulcers on left foot/great toe, diabetic polyneuropathy, HTN, hyperlipidemia, GERD, Gastroparesis, obesity and CHF. With his most recent hospitalization at [facility], he had a cardiac echo with EF 55-60%. A CXRY that showed Borderline cardiomegaly with interstitial and alveolar haziness bilaterally, could represent mild pulmonary venous congestion. Progress of Wound: This is his 6th session of hyperbaric oxygen treatment. Tolerance: Hyperbaric oxygen therapy was administered as per the facility's protocol. 100% oxygen at 2 TOYIN for 90 minutes without air breaks. He tolerated hyperbaric oxygen therapy for the most part however, had to be terminated 17 minutes before scheduled completion due to feeling unwell. Believes that he may have pulled a muscle. Blood glucose readings prior to therapy was 143 and on completion, 149 and 156 respectively. Objective Data Objective Data Vital Signs: Vital Signs Temp Pulse Resp BP O2 Del Method 97 F L 83 14 154/91 H Room Air 10/19/24 11:43 10/19/24 11:43 10/19/24 11:43 10/19/24 11:43 10/11/24 10:22 Oxygen Delivery Method Room Air Weight: 366 lb Body Mass Index (BMI) 48.2 Lab / Micro Data Labs: Laboratory Results - last 24 hr 10/19/24 09:20: POC Glucose 143 H 10/19/24 11:05: POC Glucose 149 H 10/19/24 11:21: POC Glucose 156 H Exam Physical Exam Const alert, oriented x3 and no apparent distress General Appearance: cooperative, comfortable and well kempt HEENT normocephalic, head/scalp atraumatic and hearing grossly normal bilaterally Tympanic Membrane: TM's normal bilaterally Eyes EOMs intact bilaterally Neck full ROM and supple Resp normal respiratory effort and no use of accessory muscles Neuro oriented x3, CN's II-XII intact bilaterally, moves all extremities and no focal motor deficits Psych mental status grossly normal, thought process normal, cooperative and affect normal Nursing Assessment and Debridement Post-Debridement Measurements and Additional Note: Post-Debridement Measurements/Treatment WC - Nurse 1 - General Ulcer Assessment Start: 10/04/24 08:56 Freq: Status: Active Protocol: CASSIE Activity Type Activity Date Activity User E-sign Co-sign Detail Recorded Client Recorded Date Recorded By Document 10/18/24 12:27 [id number] 10/18/24 12:30 RB 10/18/24 12:27 WC - Today's Visit Information Type of service Follow-up Visit (Physician/INVENTORY AUDITOR ) Arrival Mode Ambulatory Transfer Assistance None Patient Identification Verified (Name & Yes ) Patient Requires Transmission-Based No Precautions Finger Stick Blood Sugar(mg/dl) (if 195 indicated): Blood Sugar Stated by Patient Height and Weight Body Mass Index (BMI) 48.2 BMI Classification Obese Vital Signs Temperature (97.8 F-99.1 F) 96.5 F L Temperature Source Temporal Pulse Rate (60-100) 72 Pulse Location Monitor Respiratory Rate (12-18) 18 Respiratory rate source Observation Blood Pressure (90/60-120/80) 127/66 H Blood Pressure Mean (mm Hg) 86 Source Monitor Position Semi-Fowlers Blood Pressure Location Left Arm History Since Last Visit- (Skip if this is Patient's initial visit) Have you changed medications since your No last visit? Any new allergies or adverse reactions No Had a fall/change in ADL's that may No increase risk of falls Signs or symptoms of abuse and/or No neglect since last visit Have you been in the hospital since your No last visit? Has dressing in place as prescribed Yes Has compression in place as prescribed N/A Has offloadiing in place as prescribed Yes Experienced any changes in pain level or No management Left Footwear Regular Shoe Right Footwear Surgical Shoe with pressure relief insole Pain Scale: 0-10 Numeric Is Patient Pain Free? Yes - Nurse 1 - General Ulcer Measurement Start: 10/04/24 08:56 Freq: Status: Active Protocol: Activity Type Activity Date Activity User E-sign Co-sign Detail Recorded Client Recorded Date Recorded By Document 10/18/24 12:27 RB [id number] 10/18/24 12:30 RB 10/18/24 12:27 Wound Center Nurse 1 #5 RT 4TH TOE AMP SITE -Combined with other wound No -Current Size (cm) - Length 0.1 -Current Size (cm) - Width 0.1 -Current Size (cm) - Depth 0.1 -Total Square Cm 0.01 -Photo Taken Yes -Tunneling No -Undermining/Tunneling No -Circular Undermining No -Exudate Amt Medium -Exudate Type Serosanguineous -Wound Margin Distinct, Outline Attached -Granulation Amt Medium (34-66%) -Granulation Quality [place] -Slough/Fibrin Yes -Necrosis Amt Medium (34-66%) -Necrotic Tissue Type Adherent Slough -Structure Exposed N/A -Texture (Bev-wound Skin Appearance) Assessed, Scarring -Moisture (Bev-wound Skin Appearance) Assessed -Color (Bev-wound Skin Appearance) Assessed -Temperature (Bev-wound Skin No Abnormality Appearance) (Pt Warm) -Tenderness on Palpation (Bev-wound No Skin Appearance) -Ulcer Cleansing Wound Cleanser -Foul Odor after Cleansing No -Anesthetic Used 5% Lidocaine Gel Lower Limb Edema Present Yes Right Calf (cm) 44 Right Ankle (cm) 27 - Nurse 2 - General Ulcer CM Notes Start: 10/04/24 08:56 Freq: Status: Active Protocol: Activity Type Activity Date Activity User E-sign Co-sign Detail Recorded Client Recorded Date Recorded By Document 10/18/24 12:50 HELIO [id number] 10/18/24 12:52 HELIO 10/18/24 12:50 Wound Center Nurse 2 #5 RT 4TH TOE AMP SITE -Time 12:51 -Correct Patient Yes -Correct Side, Site, Position Yes -Correct Procedure Yes -Procedure Performed Yes -Type of Procedure Debridement -Clinical Debridement Subcutaneous -Tissue Removed Subcutaneous -Post Debridement (cm) - Length 1.5 -Post Debridement (cm) - Width 0.2 -Post Debridement (cm) - Depth 1.3 -Total Square (Post) (cm) 0.30 -Area of Debridement (cm) - Length 1.5 -Area of Debridement (cm) - Width 0.2 -Total Square (Area) (cm) 0.30 -Tunneling No -Undermining/Tunneling No -Circular Undermining No -Wound/Ulcer Outcome Not Healed -Ulcer Cleansing Rinsed/ Irrigated with Saline -Foul Odor after Cleansing No -Bioengineered Tissue Yes -Type of Bioengineered Tissue Epifix 18mm Disc -Expiration Date 05/05/29 -Product Lot Number [id number] -Percent Used 100 -Lot number of Saline Used [id number] -Bleeding Controlled with Pressure -Treatment Response Procedure Tolerated Well -Offloading Yes -Type of Offloading Surgical Shoe -Debridement - Subq, 1st 20sq cm No -Apply Skin Sub - 1st 25 sq cm - Feet 1 -Epifix 18mm Disc Application 1-4 3 Pain Scale: 0-10 Numeric Is Patient Pain Free? Yes - Nurse 3 - General Ulcer D/C NN Start: 10/04/24 08:56 Freq: Status: Active Protocol: Activity Type Activity Date Activity User E-sign Co-sign Detail Recorded Client Recorded Date Recorded By Document 10/18/24 13:08 YUNIOR [id number] 10/18/24 13:08 YUNIOR 10/18/24 13:08 Wound Care Center Nurse 3 #5 RT 4TH TOE AMP SITE -Primary Dressing Covered/Secured with Dry Gauze & Roll Gauze, Secured with Tape RLE -Other angelo Treatment Response Procedure Tolerated Well Pain Scale: 0-10 Numeric Is Patient Pain Free? Yes - Visit Discharge Discharge Condition Stable Ambulatory Status Ambulatory Transportation Private Auto Medication Reconcilliation completed & No provided to patient/care provider Clinical Summary of Care Provided Yes Charges/Coding Wound Center CF Procedures HBO Supervision: [id number] Hyperbaric Oxygen; supervision Assessment/Plan Assessment/Plan (1) Type 2 diabetes mellitus with foot ulcer: CODE(S): E11.621 - Type 2 diabetes mellitus with foot ulcer; L97.509 - Non-pressure chronic ulcer of other part of unspecified foot with unspecified severity QUALIFIERS: Diabetes mellitus intermediate project manager insulin use: with intermediate project manager use Qualified Code(s): E11.621 - Type 2 diabetes mellitus with foot ulcer; L97.509 - Non-pressure chronic ulcer of other part of unspecified foot with unspecified severity; Z79.4 - group home (current) use of insulin (2) Diabetic foot ulcer with osteomyelitis: CODE(S): E11.621 - Type 2 diabetes mellitus with foot ulcer; E11.69 - Type 2 diabetes mellitus with other specified complication; L97.509 - Non-pressure chronic ulcer of other part of unspecified foot with unspecified severity; M86.9 - Osteomyelitis, unspecified (3) 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 Vitals and blood glucose readings as documented. This note was generated with [employer] software. It may contain incorrect words, spelling, and punctuation that were not noted in checking the note before signing.
--- NOTE | 2024-10-20 14:55 | PCM.HBO.PN ---
History of Present Illness Date of Service: 10/17/24 Chief Complaint: HBO for Diabetic Foot Ulcer with Osteomyelitis History of Wound: Mr. Ruelas is a very pleasant 39-year-old male with diabetes coming wound care center today for evaluation for HBO therapy. He started with a blister on his foot after moving about 1.5 months ago. 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 His operative cultures were positive for proteus, MRSE, MS-CoNS, and strep which he was treated with vanc/unasyn then discharged home on Linezolid and Augmentin (he was seen inpatient by ID). He developed a full-thickness wound post op. He then was admitted to [facility] for CHF and lung exacerbations. He was discharged and referred to the wound care center by his primary doctor. Patient is a diabetic and has had blood sugars around 160 to 170 mg/dL. He is now seeing Dr. Jiang at the wound center for management of his right foot ulcer. He has history of foot ulcers on left foot/great toe, diabetic polyneuropathy, HTN, hyperlipidemia, GERD, Gastroparesis, obesity and CHF. With his most recent hospitalization at [facility], he had a cardiac echo with EF 55-60%. A CXRY that showed Borderline cardiomegaly with interstitial and alveolar haziness bilaterally, could represent mild pulmonary venous congestion. Progress of Wound: This is his 4th session of hyperbaric oxygen treatment. Tolerance: Hyperbaric oxygen therapy was administered as per the facility's protocol. Hyperbaric oxygen therapy was administered at 100% oxygen at 2 TOYIN for 90 minutes without air breaks. The patient tolerated hyperbaric oxygen therapy well, without complaints or complications. Upon emergence from the hyperbaric chamber, the patient's vital signs remained stable. Blood glucose readings prior to therapy were 165, and on completion 111. The patient was discharged in good condition. Objective Data Objective Data Vital Signs: Vital Signs Temp Pulse Resp BP O2 Del Method 97 F L 83 14 154/91 H Room Air 10/19/24 11:43 10/19/24 11:43 10/19/24 11:43 10/19/24 11:43 10/11/24 10:22 Oxygen Delivery Method Room Air Weight: 366 lb Body Mass Index (BMI) 48.2 Exam Physical Exam Const alert, oriented x3, no apparent distress and well nourished General Appearance: cooperative and well developed HEENT normocephalic, EAC's normal and moist oral mucous membranes Eyes EOMs intact bilaterally Neck General: trachea midline Resp normal respiratory effort, no use of accessory muscles and clear to auscultation bilaterally Effort and Inspection: able to speak in complete sentences Psych affect normal Speech: normal speech Nursing Assessment and Debridement Post-Debridement Measurements and Additional Note: Post-Debridement Measurements/Treatment WC - Nurse 1 - General Ulcer Assessment Start: 10/04/24 08:56 Freq: Status: Active Protocol: LARISSA.[employer] TechnologiesHEATHER Activity Type Activity Date Activity User E-sign Co-sign Detail Recorded Client Recorded Date Recorded By Document 10/18/24 12:27 YUNIOR [id number] 10/18/24 12:30 RB 10/18/24 12:27 WC - Today's Visit Information Type of service Follow-up Visit (Physician/DIAMOND SELECTOR ) Arrival Mode Ambulatory Transfer Assistance None Patient Identification Verified (Name & Yes ) Patient Requires Transmission-Based No Precautions Finger Stick Blood Sugar(mg/dl) (if 195 indicated): Blood Sugar Stated by Patient Height and Weight Body Mass Index (BMI) 48.2 BMI Classification Obese Vital Signs Temperature (97.8 F-99.1 F) 96.5 F L Temperature Source Temporal Pulse Rate (60-100) 72 Pulse Location Monitor Respiratory Rate (12-18) 18 Respiratory rate source Observation Blood Pressure (90/60-120/80) 127/66 H Blood Pressure Mean (mm Hg) 86 Source Monitor Position Semi-Fowlers Blood Pressure Location Left Arm History Since Last Visit- (Skip if this is Patient's initial visit) Have you changed medications since your No last visit? Any new allergies or adverse reactions No Had a fall/change in ADL's that may No increase risk of falls Signs or symptoms of abuse and/or No neglect since last visit Have you been in the hospital since your No last visit? Has dressing in place as prescribed Yes Has compression in place as prescribed N/A Has offloadiing in place as prescribed Yes Experienced any changes in pain level or No management Left Footwear Regular Shoe Right Footwear Surgical Shoe with pressure relief insole Pain Scale: 0-10 Numeric Is Patient Pain Free? Yes - Nurse 1 - General Ulcer Measurement Start: 10/04/24 08:56 Freq: Status: Active Protocol: Activity Type Activity Date Activity User E-sign Co-sign Detail Recorded Client Recorded Date Recorded By Document 10/18/24 12:27 YUNIOR [id number] 10/18/24 12:30 RB 10/18/24 12:27 Wound Center Nurse 1 #5 RT 4TH TOE AMP SITE -Combined with other wound No -Current Size (cm) - Length 0.1 -Current Size (cm) - Width 0.1 -Current Size (cm) - Depth 0.1 -Total Square Cm 0.01 -Photo Taken Yes -Tunneling No -Undermining/Tunneling No -Circular Undermining No -Exudate Amt Medium -Exudate Type Serosanguineous -Wound Margin Distinct, Outline Attached -Granulation Amt Medium (34-66%) -Granulation Quality Lovilia -Slough/Fibrin Yes -Necrosis Amt Medium (34-66%) -Necrotic Tissue Type Adherent Slough -Structure Exposed N/A -Texture (Bev-wound Skin Appearance) Assessed, Scarring -Moisture (Bev-wound Skin Appearance) Assessed -Color (Bev-wound Skin Appearance) Assessed -Temperature (Bev-wound Skin No Abnormality Appearance) (Pt Warm) -Tenderness on Palpation (Bev-wound No Skin Appearance) -Ulcer Cleansing Wound Cleanser -Foul Odor after Cleansing No -Anesthetic Used 5% Lidocaine Gel Lower Limb Edema Present Yes Right Calf (cm) 44 Right Ankle (cm) 27 - Nurse 2 - General Ulcer CM Notes Start: 10/04/24 08:56 Freq: Status: Active Protocol: Activity Type Activity Date Activity User E-sign Co-sign Detail Recorded Client Recorded Date Recorded By Document 10/18/24 12:50 HELIO [id number] 10/18/24 12:52 HELIO 10/18/24 12:50 Wound Center Nurse 2 #5 RT 4TH TOE AMP SITE -Time 12:51 -Correct Patient Yes -Correct Side, Site, Position Yes -Correct Procedure Yes -Procedure Performed Yes -Type of Procedure Debridement -Clinical Debridement Subcutaneous -Tissue Removed Subcutaneous -Post Debridement (cm) - Length 1.5 -Post Debridement (cm) - Width 0.2 -Post Debridement (cm) - Depth 1.3 -Total Square (Post) (cm) 0.30 -Area of Debridement (cm) - Length 1.5 -Area of Debridement (cm) - Width 0.2 -Total Square (Area) (cm) 0.30 -Tunneling No -Undermining/Tunneling No -Circular Undermining No -Wound/Ulcer Outcome Not Healed -Ulcer Cleansing Rinsed/ Irrigated with Saline -Foul Odor after Cleansing No -Bioengineered Tissue Yes -Type of Bioengineered Tissue Epifix 18mm Disc -Expiration Date 05/05/29 -Product Lot Number [id number] -Percent Used 100 -Lot number of Saline Used [id number] -Bleeding Controlled with Pressure -Treatment Response Procedure Tolerated Well -Offloading Yes -Type of Offloading Surgical Shoe -Debridement - Subq, 1st 20sq cm No -Apply Skin Sub - 1st 25 sq cm - Feet 1 -Epifix 18mm Disc Application 1-4 3 Pain Scale: 0-10 Numeric Is Patient Pain Free? Yes - Nurse 3 - General Ulcer D/C NN Start: 10/04/24 08:56 Freq: Status: Active Protocol: Activity Type Activity Date Activity User E-sign Co-sign Detail Recorded Client Recorded Date Recorded By Document 10/18/24 13:08 RB [id number] 10/18/24 13:08 RB 10/18/24 13:08 Wound Care Center Nurse 3 #5 RT 4TH TOE AMP SITE -Primary Dressing Covered/Secured with Dry Gauze & Roll Gauze, Secured with Tape RLE -Other angelo Treatment Response Procedure Tolerated Well Pain Scale: 0-10 Numeric Is Patient Pain Free? Yes - Visit Discharge Discharge Condition Stable Ambulatory Status Ambulatory Transportation Private Auto Medication Reconcilliation completed & No provided to patient/care provider Clinical Summary of Care Provided Yes Assessment/Plan Assessment/Plan (1) Type 2 diabetes mellitus with foot ulcer: CODE(S): E11.621 - Type 2 diabetes mellitus with foot ulcer; L97.509 - Non-pressure chronic ulcer of other part of unspecified foot with unspecified severity QUALIFIERS: Diabetes mellitus intermediate project manager insulin use: with intermediate project manager use Qualified Code(s): E11.621 - Type 2 diabetes mellitus with foot ulcer; L97.509 - Non-pressure chronic ulcer of other part of unspecified foot with unspecified severity; Z79.4 - salvage determiner (current) use of insulin (2) Diabetic foot ulcer with osteomyelitis: CODE(S): E11.621 - Type 2 diabetes mellitus with foot ulcer; E11.69 - Type 2 diabetes mellitus with other specified complication; L97.509 - Non-pressure chronic ulcer of other part of unspecified foot with unspecified severity; M86.9 - Osteomyelitis, unspecified (3) 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
[2024-10-23 09:35] VITALS: BP 201/117; PULSE 77; RESP 16; TEMP 35.7
[2024-10-23 09:48] LABS: Bedside Glucose 192 mg/dL (74-106)
--- NOTE | 2024-10-23 11:04 | WC ---
Addendum entered by Izabela Escalona 10/23/24 11:09: PT DENIES ANY SYMPTOMS OR ILL FEELINGS. Original Note: PT EVALUATED BY DR GONZALEZ. WE HAVE RECHECKED HIS BP MULTIPLE TIMES, MONITOR AND MANUAL. EACH TIME IS ELEVATED. TWO OF THOSE READINGS ARE 201/117, 202/116 WITH A PULSE OF 77. PT REPORTS FEELING ^ STRESSED TODAY R/T MARITAL DIFFICULTIES. DR GONZALEZ RECOMMENDS PATIENT REPORT TO ED FOR EVALUATION. NO HBO TODAY. PT VOICED UNDERSTANDING, HOWEVER WE ARE NOT CERTAIN HE WILL GO. WILL PLAN ON HBO AGAIN TOMORROW.
[2024-10-24 12:51] LABS: Bedside Glucose 297 mg/dL (74-106)
[2024-10-24 13:11] LABS: Bedside Glucose 279 mg/dL (74-106)
[2024-10-24 15:08] VITALS: BP 165/91; PULSE 84; RESP 15; TEMP 35.7
[2024-10-25 08:20] VITALS: BP 169/90; BP 194/103; PULSE 74; PULSE 75; RESP 16; TEMP 35.7; TEMP 35.8
[2024-10-25 08:50] LABS: Bedside Glucose 140 mg/dL (74-106)
[2024-10-25 10:52] VITALS: BP 169/90; PULSE 75; RESP 16; TEMP 35.7; BMI 48.2
[2024-10-25 10:58] LABS: Bedside Glucose 160 mg/dL (74-106)
--- NOTE | 2024-10-25 11:41 | PN.PCM_ITS ---
History of Present Illness Date of Service: 10/25/24 Chief Complaint: HBO for Diabetic Foot Ulcer with Osteomyelitis History of Wound: Mr. Ruelas is a very pleasant 39-year-old male with diabetes coming wound care center today for evaluation for HBO therapy. He started with a blister on his foot after moving about 1.5 months ago. 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 His operative cultures were positive for proteus, MRSE, MS-CoNS, and strep which he was treated with vanc/unasyn then discharged home on Linezolid and Augmentin (he was seen inpatient by ID). He developed a full-thickness wound post op. He then was admitted to [facility] for CHF and lung exacerbations. He was discharged and referred to the wound care center by his [facility] doctor. Patient is a diabetic and has had blood sugars around 160 to 170 mg/dL. He is now seeing Dr. Jiang at the wound center for management of his right foot ulcer. He has history of foot ulcers on left foot/great toe, diabetic polyneuropathy, HTN, hyperlipidemia, GERD, Gastroparesis, obesity and CHF. With his most recent hospitalization at [facility], he had a cardiac echo with EF 55-60%. A CXRY that showed Borderline cardiomegaly with interstitial and alveolar haziness bilaterally, could represent mild pulmonary venous congestion. Progress of Wound: Patient's full-thickness wound to the right foot is doing well and healing. He is continued HBO uneventfully. Subjective Subjective Mr. Ruelas is a 39-year-old diabetic male presenting to clinic today follow-up evaluation of full-thickness wound status post fourth ray resection to the right foot. He is continue HBO uneventfully. He notices great improvement to his full-thickness wound. He is grateful for his care. Blood sugars well- controlled. Denies trauma. Denies constitutional symptoms. No other pedal complaints at this time. Objective Data Objective Data Vital Signs: Vital Signs Temp Pulse Resp BP O2 Del Method 96.2 F L 75 16 169/90 H Room Air 10/25/24 10:52 10/25/24 10:52 10/25/24 10:52 10/25/24 10:52 10/11/24 10:22 Oxygen Delivery Method Room Air Weight: 166.015 kg Body Mass Index (BMI) 48.2 Lab / Micro Data Labs: Laboratory Results - last 24 hr 10/24/24 12:34: POC Glucose 297 H 10/24/24 12:53: POC Glucose 279 H 10/25/24 08:33: POC Glucose 140 H 10/25/24 10:38: POC Glucose 160 H Physical Exam Narrative Vascular: DP and PT pulses are palpable to the right lower extremity. CFT is brisk. No erythema to the right foot. Nonpitting edema to the right foot and ankle. Neurological: Light touch intact. Protective station is diminished. Patient does respond to painful stimuli. Dermatological: Full-thickness wound at the level of the status post fourth ray amputation to the right foot measuring 0.8 x 0.2 x 0.2 cm. No probe to bone. No malodor. No purulent drainage noted. Excisional debridement down to and including subcutaneous tissue, muscle, fascia of the right foot full-thickness wound with a number 5 mm dermal curette without incident. Predebridement measurement was 0.6 x 0.1 x 0.1 cm. Postdebridement measurement is 0.8 x 0.2 x 0.2 cm. EpiFix 18 mm disc cm was applied to the right full-thickness ulceration with 100% use. Seventh application. The graft site was free and clear of any infection. The wound/skin graft substitute was dressed with nonadherent bandage secured in place with Steri-Strips followed by bolster dressing as well as a double layer Tubigrip. Musculoskeletal: Muscle strength is 5 out of 5 in all quadrants to the right lower extremity. No pain on palpation of the full-thickness wound. No pain with calf pressure. Debridement Note Debridement Note Debridement Free Text: Excisional debridement down to and including subcutaneous tissue, muscle, fascia of the right foot full-thickness wound with a number 5 mm dermal curette without incident. Predebridement measurement was 0.6 x 0.1 x 0.1 cm. Postdebridement measurement is 0.8 x 0.2 x 0.2 cm. EpiFix 18 mm disc cm was applied to the right full-thickness ulceration with 100% use. Seventh application. The graft site was free and clear of any infection. The wound/skin graft substitute was dressed with nonadherent bandage secured in place with Steri-Strips followed by bolster dressing as well as a double layer Tubigrip. Post-Debridement Measurements and Additional Note: Post-Debridement Measurements/Treatment WC - Nurse 1 - General Ulcer Assessment Start: 10/04/24 08:56 Freq: Status: Active Protocol: LARISSA.LOWHEATHER Activity Type Activity Date Activity User E-sign Co-sign Detail Recorded Client Recorded Date Recorded By Document 10/04/24 08:56 KW [id number] 10/04/24 09:04 KW Document 10/11/24 10:22 KW [id number] 10/11/24 10:32 KW Document 10/18/24 12:27 RB [id number] 10/18/24 12:30 RB Document 10/25/24 10:52 ML [id number] 10/25/24 10:58 ML 10/04/24 10/11/24 10/18/24 08:56 10:22 12:27 WC - Today's Visit Information Type of service Follow-up Visit Follow-up Visit Follow-up Visit (Physician/HUB BANDER (Physician/HUB BANDER (Physician/HUB BANDER ) ) ) Arrival Mode Ambulatory Ambulatory Ambulatory Transfer Assistance None Patient Identification Verified (Name & Yes Yes Yes ) Patient Requires Transmission-Based No Precautions Finger Stick Blood Sugar(mg/dl) (if 195 indicated): Blood Sugar Stated by Patient Height and Weight Body Mass Index (BMI) 48.2 48.2 48.2 BMI Classification Obese Obese Obese Vital Signs Temperature (97.8 F-99.1 F) 97.0 F L 96.5 F L 96.5 F L Temperature Source Temporal Temporal Temporal Pulse Rate (60-100) 90 71 72 Pulse Location Monitor Monitor Monitor Respiratory Rate (12-18) 18 18 18 Respiratory rate source Observation Observation Observation Oxygen Delivery Method Room Air Room Air Blood Pressure (90/60-120/80) 212/97 H 132/73 H 127/66 H Blood Pressure Mean (mm Hg) 135 92 86 Source Monitor Monitor Monitor Position Semi-Fowlers Semi-Fowlers Semi-Fowlers Blood Pressure Location Left Arm Right Arm Left Arm History Since Last Visit- (Skip if this is Patient's initial visit) Have you changed medications since your No No No last visit? Any new allergies or adverse reactions No No No Had a fall/change in ADL's that may No No No increase risk of falls Signs or symptoms of abuse and/or No No No neglect since last visit Have you been in the hospital since your No No No last visit? Has dressing in place as prescribed Yes Yes Yes Has compression in place as prescribed Yes Yes N/A Has offloadiing in place as prescribed Yes Yes Yes Experienced any changes in pain level or No No No management Left Footwear Regular Shoe Regular Shoe Regular Shoe Right Footwear Surgical Shoe Surgical Shoe Surgical Shoe with pressure with pressure with pressure relief insole relief insole relief insole Pain Scale: 0-10 Numeric Is Patient Pain Free? Yes Yes Yes 10/25/24 10:52 - Today's Visit Information Type of service Follow-up Visit (Physician/HUB BANDER ) Arrival Mode Ambulatory Transfer Assistance None Patient Identification Verified (Name & Yes ) Patient Requires Transmission-Based No Precautions Finger Stick Blood Sugar(mg/dl) (if 168 indicated): Blood Sugar Stated by Patient Height and Weight Body Mass Index (BMI) 48.2 BMI Classification Obese Vital Signs Temperature (97.8 F-99.1 F) 96.2 F L Temperature Source Temporal Pulse Rate (60-100) 75 Pulse Location Monitor Respiratory Rate (12-18) 16 Respiratory rate source Observation Oxygen Delivery Method Blood Pressure (90/60-120/80) 169/90 H Blood Pressure Mean (mm Hg) 116 Source Monitor Position Sitting Blood Pressure Location Right Arm History Since Last Visit- (Skip if this is Patient's initial visit) Have you changed medications since your No last visit? Any new allergies or adverse reactions No Had a fall/change in ADL's that may No increase risk of falls Signs or symptoms of abuse and/or No neglect since last visit Have you been in the hospital since your No last visit? Has dressing in place as prescribed Yes Has compression in place as prescribed N/A Has offloadiing in place as prescribed N/A Experienced any changes in pain level or No management Left Footwear Right Footwear Pain Scale: 0-10 Numeric Is Patient Pain Free? Yes - Nurse 1 - General Ulcer Measurement Start: 10/04/24 08:56 Freq: Status: Active Protocol: Activity Type Activity Date Activity User E-sign Co-sign Detail Recorded Client Recorded Date Recorded By Document 10/04/24 08:56 [id number] 10/04/24 09:04 KW Document 10/11/24 10:22 KW [id number] 10/11/24 10:32 KW Document 10/18/24 12:27 RB [id number] 10/18/24 12:30 RB Document 10/25/24 10:52 ML [id number] 10/25/24 10:58 ML 10/04/24 10/11/24 10/18/24 08:56 10:22 12:27 Wound Center Nurse 1 #5 RT 4TH TOE AMP SITE -Combined with other wound No -Current Size (cm) - Length 1.6 1.5 0.1 -Current Size (cm) - Width 2 1.2 0.1 -Current Size (cm) - Depth 0.5 1 0.1 -Total Square Cm 3.2 1.80 0.01 -Date of Last Picture (Recall this 10/04/24 10/11/24 field) -Photo Taken Yes -Tunneling No -Undermining/Tunneling No -Circular Undermining No -Exudate Amt Small Small Medium -Exudate Type Serosanguineous Serosanguineous Serosanguineous -Wound Margin Distinct, Distinct, Distinct, Outline Outline Outline Attached Attached Attached -Granulation Amt Large (67-100%) Large (67-100%) Medium (34-66%) -Granulation Quality [place],Red Red [place] -Slough/Fibrin Yes -Necrosis Amt Small (1-33%) Medium (34-66%) -Necrotic Tissue Type Adherent Slough Adherent Slough -Structure Exposed N/A -Texture (Bev-wound Skin Appearance) Assessed Assessed Assessed, Scarring -Moisture (Bev-wound Skin Appearance) Assessed, Assessed, Assessed Maceration Maceration -Color (Bev-wound Skin Appearance) Assessed Assessed Assessed -Temperature (Bev-wound Skin No Abnormality No Abnormality No Abnormality Appearance) (Pt Warm) (Pt Warm) (Pt Warm) -Tenderness on Palpation (Bev-wound No No No Skin Appearance) -Ulcer Cleansing Soap and Water Soap and Water Wound Cleanser -Foul Odor after Cleansing No No No -Anesthetic Used 4% Lidocaine 5% Lidocaine 5% Lidocaine Solution Gel Gel Lower Limb Edema Present Yes Right Calf (cm) 44 Right Ankle (cm) 27 10/25/24 10:52 Wound Center Nurse 1 #5 RT 4TH TOE AMP SITE -Combined with other wound -Current Size (cm) - Length 0.5 -Current Size (cm) - Width 0.1 -Current Size (cm) - Depth 0.1 -Total Square Cm 0.05 -Date of Last Picture (Recall this field) -Photo Taken -Tunneling -Undermining/Tunneling -Circular Undermining -Exudate Amt Small -Exudate Type Serosanguineous -Wound Margin -Granulation Amt Small (1-33%) -Granulation Quality -Slough/Fibrin Yes -Necrosis Amt Small (1-33%) -Necrotic Tissue Type -Structure Exposed -Texture (Bev-wound Skin Appearance) Assessed -Moisture (Bev-wound Skin Appearance) No Abnormality, Maceration -Color (Bev-wound Skin Appearance) Assessed -Temperature (Bev-wound Skin No Abnormality Appearance) (Pt Warm) -Tenderness on Palpation (Bev-wound No Skin Appearance) -Ulcer Cleansing Soap and Water -Foul Odor after Cleansing No -Anesthetic Used 5% Lidocaine Gel Lower Limb Edema Present Right Calf (cm) Right Ankle (cm) WC - Nurse 2 - General Ulcer CM Notes Start: 10/04/24 08:56 Freq: Status: Active Protocol: Activity Type Activity Date Activity User E-sign Co-sign Detail Recorded Client Recorded Date Recorded By Document 10/04/24 09:28 [id number] 10/04/24 09:35 Document 10/11/24 10:36 [id number] 10/11/24 10:42 Document 10/18/24 12:50 [id number] 10/18/24 12:52 Document 10/25/24 11:13 [id number] 10/25/24 11:18 10/04/24 10/11/24 10/18/24 09:28 10:36 12:50 Wound Center Nurse 2 #5 RT 4TH TOE AMP SITE -Time 09:29 10:36 12:51 -Correct Patient Yes Yes Yes -Correct Side, Site, Position Yes Yes Yes -Correct Procedure Yes Yes Yes -Procedure Performed Yes Yes Yes -Type of Procedure Debridement Debridement Debridement -Clinical Debridement Muscle / Fascia Muscle / Fascia Subcutaneous -Tissue Removed Muscle Muscle Subcutaneous -Post Debridement (cm) - Length 2.8 2.0 1.5 -Post Debridement (cm) - Width 0.5 0.3 0.2 -Post Debridement (cm) - Depth 2.3 1.8 1.3 -Total Square (Post) (cm) 1.40 0.60 0.30 -Area of Debridement (cm) - Length 2.8 2.0 1.5 -Area of Debridement (cm) - Width 0.5 0.3 0.2 -Total Square (Area) (cm) 1.40 0.60 0.30 -Tunneling No No No -Undermining/Tunneling No No No -Circular Undermining No No No -Wound/Ulcer Outcome Not Healed Not Healed Not Healed -Ulcer Cleansing Rinsed/ Rinsed/ Rinsed/ Irrigated with Irrigated with Irrigated with Saline Saline Saline -Foul Odor after Cleansing No No No -Bioengineered Tissue Yes Yes Yes -Type of Bioengineered Tissue Epicord Epicord Epifix 18mm Disc -Expiration Date 03/05/29 03/05/29 05/05/29 -Product Lot Number [id number] -Percent Used 100 100 100 -Lot number of Saline Used [id number] -Bleeding Controlled with Pressure Pressure Pressure -Treatment Response Procedure Procedure Procedure Tolerated Well Tolerated Well Tolerated Well -Offloading Yes Yes Yes -Type of Offloading Surgical Shoe Surgical Shoe Surgical Shoe -Debridement - Subq, 1st 20sq cm No -Debridement - Muscle / Fascia, 1st No No 20sq cm -Apply Skin Sub - 1st 25 sq cm - Feet 1 1 1 -Epicord Application 1-4 (per sq cm) 6 6 -Epifix 18mm Disc Application 1-4 3 Pain Scale: 0-10 Numeric Is Patient Pain Free? Yes Yes Yes 10/25/24 11:13 Wound Center Nurse 2 #5 RT 4TH TOE AMP SITE -Time 11:13 -Correct Patient Yes -Correct Side, Site, Position Yes -Correct Procedure Yes -Procedure Performed Yes -Type of Procedure Debridement -Clinical Debridement Subcutaneous -Tissue Removed Subcutaneous -Post Debridement (cm) - Length 0.8 -Post Debridement (cm) - Width 0.2 -Post Debridement (cm) - Depth 0.2 -Total Square (Post) (cm) 0.16 -Area of Debridement (cm) - Length 0.8 -Area of Debridement (cm) - Width 0.2 -Total Square (Area) (cm) 0.16 -Tunneling No -Undermining/Tunneling No -Circular Undermining No -Wound/Ulcer Outcome Not Healed -Ulcer Cleansing Rinsed/ Irrigated with Saline -Foul Odor after Cleansing No -Bioengineered Tissue Yes -Type of Bioengineered Tissue Epifix 18mm Disc -Expiration Date 05/05/29 -Product Lot Number [id number] -Percent Used 100 -Lot number of Saline Used [id number] -Bleeding Controlled with Pressure -Treatment Response Procedure Tolerated Well -Offloading Yes -Type of Offloading Surgical Shoe -Debridement - Subq, 1st 20sq cm No -Debridement - Muscle / Fascia, 1st 20sq cm -Apply Skin Sub - 1st 25 sq cm - Feet 1 -Epicord Application 1-4 (per sq cm) -Epifix 18mm Disc Application 1-4 3 Pain Scale: 0-10 Numeric Is Patient Pain Free? Yes - Nurse 3 - General Ulcer D/C NN Start: 10/04/24 08:56 Freq: Status: Active Protocol: Activity Type Activity Date Activity User E-sign Co-sign Detail Recorded Client Recorded Date Recorded By Document 10/04/24 10:00 DS [id number] 10/17/24 10:58 DS Document 10/11/24 10:45 DS [id number] 10/17/24 11:00 DS Document 10/18/24 13:08 RB [id number] 10/18/24 13:08 RB Document 10/25/24 11:22 ML [id number] 10/25/24 11:23 ML 10/04/24 10/11/24 10/18/24 10:00 10:45 13:08 Wound Care Center Nurse 3 #5 RT 4TH TOE AMP SITE -Ulcer Cleansing -Primary Dressing Applied C Hydrogel C Hydrogel -Primary Dressing Covered/Secured with Dry Gauze, Dry Gauze, Dry Gauze & Secured with Secured with Roll Gauze, Tape Tape Secured with Tape -Hydrogel 0 0 RLE -Compression Wrap Farhat Wrap Farhat Wrap -Other farhat Treatment Response Procedure Tolerated Well Pain Scale: 0-10 Numeric Is Patient Pain Free? Yes Yes Yes - Visit Discharge Discharge Condition Stable Stable Stable Ambulatory Status Ambulatory Ambulatory Ambulatory Transportation hospital Private Auto transportation Medication Reconcilliation completed & No provided to patient/care provider Clinical Summary of Care Provided Yes Notes: going to do HBO dive 10/25/24 11:22 Wound Care Center Nurse 3 #5 RT 4TH TOE AMP SITE -Ulcer Cleansing Rinsed/ Irrigated with Saline -Primary Dressing Applied -Primary Dressing Covered/Secured with Dry Gauze, Secured with Tape -Hydrogel RLE -Compression Wrap -Other Treatment Response Pain Scale: 0-10 Numeric Is Patient Pain Free? Yes WC - Visit Discharge Discharge Condition Ambulatory Status Transportation Medication Reconcilliation completed & provided to patient/care provider Clinical Summary of Care Provided Notes: Assessment/Plan Assessment/Plan (1) Type 2 diabetes mellitus with foot ulcer: CODE(S): E11.621 - Type 2 diabetes mellitus with foot ulcer; L97.509 - Non-pressure chronic ulcer of other part of unspecified foot with unspecified severity QUALIFIERS: Diabetes mellitus jail insulin use: with superintendent container terminal use Qualified Code(s): E11.621 - Type 2 diabetes mellitus with foot ulcer; L97.509 - Non-pressure chronic ulcer of other part of unspecified foot with unspecified severity; Z79.4 - superintendent container terminal (current) use of insulin PLAN: Patient was examined and evaluated. All findings were discussed with the patient. All questions were answered to the patient's satisfaction. Excisional debridement down to and including subcutaneous tissue, muscle, fascia of the right foot full-thickness wound with a number 5 mm dermal curette without incident. Predebridement measurement was 0.6 x 0.1 x 0.1 cm. Postdebridement measurement is 0.8 x 0.2 x 0.2 cm. EpiFix 18 mm disc cm was applied to the right full-thickness ulceration with 100% use. Seventh application. The graft site was free and clear of any infection. The wound/skin graft substitute was dressed with nonadherent bandage secured in place with Steri-Strips followed by bolster dressing as well as a double layer Tubigrip. Patient will continue his HBO dives as tolerated. Educated patient continue strict blood sugar control. Follow-up at the wound care center with Dr. Jiang in 1 week. 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
--- NOTE | 2024-10-25 12:38 | PCM.HBO.PN ---
History of Present Illness Date of Service: 10/25/24 Chief Complaint: HBO for Diabetic Foot Ulcer with Osteomyelitis History of Wound: Mr. Ruelas is a very pleasant 39-year-old male with diabetes coming wound care center today for evaluation for HBO therapy. He started with a blister on his foot after moving about 1.5 months ago. 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 His operative cultures were positive for proteus, MRSE, MS-CoNS, and strep which he was treated with vanc/unasyn then discharged home on Linezolid and Augmentin (he was seen inpatient by ID). He developed a full-thickness wound post op. He then was admitted to [facility] for CHF and lung exacerbations. He was discharged and referred to the wound care center by his primary doctor. Patient is a diabetic and has had blood sugars around 160 to 170 mg/dL. He is now seeing Dr. Jiang at the wound center for management of his right foot ulcer. He has history of foot ulcers on left foot/great toe, diabetic polyneuropathy, HTN, hyperlipidemia, GERD, Gastroparesis, obesity and CHF. With his most recent hospitalization at [facility], he had a cardiac echo with EF 55-60%. A CXRY that showed Borderline cardiomegaly with interstitial and alveolar haziness bilaterally, could represent mild pulmonary venous congestion. Progress of Wound: Patient's full-thickness wound to the right foot is doing well and healing. He is continued HBO uneventfully. Subjective Subjective Patient has no concerns doing well blood sugars were good today prewas 135 post was 140 Objective Data Objective Data Tolerated treatment well and vital signs stable blood sugar stable on admission and discharge Vital Signs: Vital Signs Temp Pulse Resp BP O2 Del Method 96.2 F L 75 16 169/90 H Room Air 10/25/24 10:52 10/25/24 10:52 10/25/24 10:52 10/25/24 10:52 10/11/24 10:22 Oxygen Delivery Method Room Air Weight: 366 lb Body Mass Index (BMI) 48.2 Lab / Micro Data Attestation: I reviewed the patient's lab results. Labs: Laboratory Results - last 24 hr 10/24/24 12:34: POC Glucose 297 H 10/24/24 12:53: POC Glucose 279 H 10/25/24 08:33: POC Glucose 140 H 10/25/24 10:38: POC Glucose 160 H Exam Physical Exam Const alert, oriented x3 and no apparent distress General Appearance: cooperative HEENT normocephalic and TM's normal bilaterally Resp normal respiratory effort, no use of accessory muscles and clear to auscultation bilaterally Effort and Inspection: able to speak in complete sentences Cardio regular rate and regular rhythm Psych affect normal Appearance: grossly normal Nursing Assessment and Debridement Post-Debridement Measurements and Additional Note: Post-Debridement Measurements/Treatment WC - Nurse 1 - General Ulcer Assessment Start: 10/04/24 08:56 Freq: Status: Active Protocol: CASSIE Activity Type Activity Date Activity User E-sign Co-sign Detail Recorded Client Recorded Date Recorded By Document 10/25/24 10:52 ML [id number] 10/25/24 10:58 ML 10/25/24 10:52 WC - Today's Visit Information Type of service Follow-up Visit (Physician/MANAGER [employer]ING ) Arrival Mode Ambulatory Transfer Assistance None Patient Identification Verified (Name & Yes ) Patient Requires Transmission-Based No Precautions Finger Stick Blood Sugar(mg/dl) (if 168 indicated): Blood Sugar Stated by Patient Height and Weight Body Mass Index (BMI) 48.2 BMI Classification Obese Vital Signs Temperature (97.8 F-99.1 F) 96.2 F L Temperature Source Temporal Pulse Rate (60-100) 75 Pulse Location Monitor Respiratory Rate (12-18) 16 Respiratory rate source Observation Blood Pressure (90/60-120/80) 169/90 H Blood Pressure Mean (mm Hg) 116 Source Monitor Position Sitting Blood Pressure Location Right Arm History Since Last Visit- (Skip if this is Patient's initial visit) Have you changed medications since your No last visit? Any new allergies or adverse reactions No Had a fall/change in ADL's that may No increase risk of falls Signs or symptoms of abuse and/or No neglect since last visit Have you been in the hospital since your No last visit? Has dressing in place as prescribed Yes Has compression in place as prescribed N/A Has offloadiing in place as prescribed N/A Experienced any changes in pain level or No management Pain Scale: 0-10 Numeric Is Patient Pain Free? Yes - Nurse 1 - General Ulcer Measurement Start: 10/04/24 08:56 Freq: Status: Active Protocol: Activity Type Activity Date Activity User E-sign Co-sign Detail Recorded Client Recorded Date Recorded By Document 10/25/24 10:52 ML [id number] 10/25/24 10:58 ML 10/25/24 10:52 Wound Center Nurse 1 #5 RT 4TH TOE AMP SITE -Current Size (cm) - Length 0.5 -Current Size (cm) - Width 0.1 -Current Size (cm) - Depth 0.1 -Total Square Cm 0.05 -Exudate Amt Small -Exudate Type Serosanguineous -Granulation Amt Small (1-33%) -Slough/Fibrin Yes -Necrosis Amt Small (1-33%) -Texture (Bev-wound Skin Appearance) Assessed -Moisture (Bev-wound Skin Appearance) No Abnormality, Maceration -Color (Bev-wound Skin Appearance) Assessed -Temperature (Bev-wound Skin No Abnormality Appearance) (Pt Warm) -Tenderness on Palpation (Bev-wound No Skin Appearance) -Ulcer Cleansing Soap and Water -Foul Odor after Cleansing No -Anesthetic Used 5% Lidocaine Gel WC - Nurse 2 - General Ulcer CM Notes Start: 10/04/24 08:56 Freq: Status: Active Protocol: Activity Type Activity Date Activity User E-sign Co-sign Detail Recorded Client Recorded Date Recorded By Document 10/25/24 11:13 [id number] [id number] 10/25/24 11:18 10/25/24 11:13 Wound Center Nurse 2 -Time 11:13 -Correct Patient Yes -Correct Side, Site, Position Yes -Correct Procedure Yes -Procedure Performed Yes -Type of Procedure Debridement -Clinical Debridement Subcutaneous -Tissue Removed Subcutaneous -Post Debridement (cm) - Length 0.8 -Post Debridement (cm) - Width 0.2 -Post Debridement (cm) - Depth 0.2 -Total Square (Post) (cm) 0.16 -Area of Debridement (cm) - Length 0.8 -Area of Debridement (cm) - Width 0.2 -Total Square (Area) (cm) 0.16 -Tunneling No -Undermining/Tunneling No -Circular Undermining No -Wound/Ulcer Outcome Not Healed -Ulcer Cleansing Rinsed/ Irrigated with Saline -Foul Odor after Cleansing No -Bioengineered Tissue Yes -Type of Bioengineered Tissue Epifix 18mm Disc -Expiration Date 05/05/29 -Product Lot Number [id number] -Percent Used 100 -Lot number of Saline Used [id number] -Bleeding Controlled with Pressure -Treatment Response Procedure Tolerated Well -Offloading Yes -Type of Offloading Surgical Shoe -Debridement - Subq, 1st 20sq cm No -Apply Skin Sub - 1st 25 sq cm - Feet 1 -Epifix 18mm Disc Application 1-4 3 Pain Scale: 0-10 Numeric Is Patient Pain Free? Yes WC - Nurse 3 - General Ulcer D/C NN Start: 10/04/24 08:56 Freq: Status: Active Protocol: Activity Type Activity Date Activity User E-sign Co-sign Detail Recorded Client Recorded Date Recorded By Document 10/25/24 11:22 ML [id number] 10/25/24 11:23 ML 10/25/24 11:22 Wound Care Center Nurse 3 #5 RT 4TH TOE AMP SITE -Ulcer Cleansing Rinsed/ Irrigated with Saline -Primary Dressing Covered/Secured with Dry Gauze, Secured with Tape Pain Scale: 0-10 Numeric Is Patient Pain Free? Yes Assessment/Plan Assessment/Plan (1) Type 2 diabetes mellitus with foot ulcer: CODE(S): E11.621 - Type 2 diabetes mellitus with foot ulcer; L97.509 - Non-pressure chronic ulcer of other part of unspecified foot with unspecified severity QUALIFIERS: Diabetes mellitus jail insulin use: with superintendent container terminal use Qualified Code(s): E11.621 - Type 2 diabetes mellitus with foot ulcer; L97.509 - Non-pressure chronic ulcer of other part of unspecified foot with unspecified severity; Z79.4 - salvage determiner (current) use of insulin (2) Diabetic foot ulcer with osteomyelitis: CODE(S): E11.621 - Type 2 diabetes mellitus with foot ulcer; E11.69 - Type 2 diabetes mellitus with other specified complication; L97.509 - Non-pressure chronic ulcer of other part of unspecified foot with unspecified severity; M86.9 - Osteomyelitis, unspecified (3) 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 He was evaluated by ENT for possible tube placement due to some discomfort on initial dive, but they determined that he does not need to have tubes placed. Doing well and appears to be benefiting from HBOT.
[2024-10-26 08:34] LABS: Bedside Glucose 156 mg/dL (74-106)
[2024-10-26 09:51] VITALS: BP 135/67; BP 163/92; PULSE 62; PULSE 73; RESP 14; RESP 15; TEMP 35.5
[2024-10-26 10:44] LABS: Bedside Glucose 134 mg/dL (74-106)
--- NOTE | 2024-10-26 12:02 | HBO.PN.PCM_ITS ---
History of Present Illness Date of Service: 10/26/24 Chief Complaint: HBO for Diabetic Foot Ulcer with Osteomyelitis History of Wound: Mr. Ruelas is a very pleasant 39-year-old male with diabetes coming wound care center today for evaluation for HBO therapy. He started with a blister on his foot after moving about 1.5 months ago. 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 His operative cultures were positive for proteus, MRSE, MS-CoNS, and strep which he was treated with vanc/unasyn then discharged home on Linezolid and Augmentin (he was seen inpatient by ID). He developed a full-thickness wound post op. He then was admitted to [facility] for CHF and lung exacerbations. He was discharged and referred to the wound care center by his [facility] doctor. Patient is a diabetic and has had blood sugars around 160 to 170 mg/dL. He is now seeing Dr. Jiang at the wound center for management of his right foot ulcer. He has history of foot ulcers on left foot/great toe, diabetic polyneuropathy, HTN, hyperlipidemia, GERD, Gastroparesis, obesity and CHF. With his most recent hospitalization at [facility], he had a cardiac echo with EF 55-60%. A CXRY that showed Borderline cardiomegaly with interstitial and alveolar haziness bilaterally, could represent mild pulmonary venous congestion. Progress of Wound: Patient's full-thickness wound to the right foot is doing well and healing. He is continuing HBO uneventfully. This was the eighth session of hyperbaric oxygen therapy, of an anticipated 30 such sessions. Tolerance of hyperbaric oxygen therapy: Hyperbaric oxygen therapy was administered as per the facility's protocol. Hyperbaric oxygen therapy was administered at 100% oxygen at 2 calista for 90 minutes without air breaks. The patient tolerated hyperbaric oxygen therapy without complaints or complications. Upon emergence from the hyperbaric chamber, the patient's vital signs remained stable. Blood glucose measurements prior to therapy were 156, and following therapy were 134. Objective Data Objective Data Vital Signs: Vital Signs Temp Pulse Resp BP O2 Del Method 96 F L 73 15 135/67 H Room Air 10/26/24 09:51 10/26/24 09:51 10/26/24 09:51 10/26/24 09:51 10/11/24 10:22 Oxygen Delivery Method Room Air Weight: 366 lb Body Mass Index (BMI) 48.2 Lab / Micro Data Labs: Laboratory Results - last 24 hr 10/26/24 08:16: POC Glucose 156 H 10/26/24 10:24: POC Glucose 134 H Exam Physical Exam Const alert, oriented x3, no apparent distress and well nourished General Appearance: cooperative and well developed HEENT normocephalic and EAC's normal Head and Scalp: atraumatic Eyes EOMs intact bilaterally Resp normal respiratory effort and no use of accessory muscles Effort and Inspection: able to speak in complete sentences Psych affect normal Appearance: grossly normal Speech: normal speech Nursing Assessment and Debridement Post-Debridement Measurements and Additional Note: Post-Debridement Measurements/Treatment - Nurse 1 - General Ulcer Assessment Start: 10/04/24 08:56 Freq: Status: Active Protocol: .LOWEXCathy Activity Type Activity Date Activity User E-sign Co-sign Detail Recorded Client Recorded Date Recorded By Document 10/25/24 10:52 ML [id number] 10/25/24 10:58 ML 10/25/24 10:52 - Today's Visit Information Type of service Follow-up Visit (Physician/PARKING ATTENDANT ) Arrival Mode Ambulatory Transfer Assistance None Patient Identification Verified (Name & Yes ) Patient Requires Transmission-Based No Precautions Finger Stick Blood Sugar(mg/dl) (if 168 indicated): Blood Sugar Stated by Patient Height and Weight Body Mass Index (BMI) 48.2 BMI Classification Obese Vital Signs Temperature (97.8 F-99.1 F) 96.2 F L Temperature Source Temporal Pulse Rate (60-100) 75 Pulse Location Monitor Respiratory Rate (12-18) 16 Respiratory rate source Observation Blood Pressure (90/60-120/80) 169/90 H Blood Pressure Mean (mm Hg) 116 Source Monitor Position Sitting Blood Pressure Location Right Arm History Since Last Visit- (Skip if this is Patient's initial visit) Have you changed medications since your No last visit? Any new allergies or adverse reactions No Had a fall/change in ADL's that may No increase risk of falls Signs or symptoms of abuse and/or No neglect since last visit Have you been in the hospital since your No last visit? Has dressing in place as prescribed Yes Has compression in place as prescribed N/A Has offloadiing in place as prescribed N/A Experienced any changes in pain level or No management Pain Scale: 0-10 Numeric Is Patient Pain Free? Yes - Nurse 1 - General Ulcer Measurement Start: 10/04/24 08:56 Freq: Status: Active Protocol: Activity Type Activity Date Activity User E-sign Co-sign Detail Recorded Client Recorded Date Recorded By Document 10/25/24 10:52 ML [id number] 10/25/24 10:58 ML 10/25/24 10:52 Wound Center Nurse 1 #5 RT 4TH TOE AMP SITE -Current Size (cm) - Length 0.5 -Current Size (cm) - Width 0.1 -Current Size (cm) - Depth 0.1 -Total Square Cm 0.05 -Exudate Amt Small -Exudate Type Serosanguineous -Granulation Amt Small (1-33%) -Slough/Fibrin Yes -Necrosis Amt Small (1-33%) -Texture (Bev-wound Skin Appearance) Assessed -Moisture (Bev-wound Skin Appearance) No Abnormality, Maceration -Color (Bev-wound Skin Appearance) Assessed -Temperature (Bev-wound Skin No Abnormality Appearance) (Pt Warm) -Tenderness on Palpation (Bev-wound No Skin Appearance) -Ulcer Cleansing Soap and Water -Foul Odor after Cleansing No -Anesthetic Used 5% Lidocaine Gel LARISSA - Nurse 2 - General Ulcer CM Notes Start: 10/04/24 08:56 Freq: Status: Active Protocol: Activity Type Activity Date Activity User E-sign Co-sign Detail Recorded Client Recorded Date Recorded By Document 10/25/24 11:13 [id number] 10/25/24 11:18 10/25/24 11:13 Wound Center Nurse 2 -Time 11:13 -Correct Patient Yes -Correct Side, Site, Position Yes -Correct Procedure Yes -Procedure Performed Yes -Type of Procedure Debridement -Clinical Debridement Subcutaneous -Tissue Removed Subcutaneous -Post Debridement (cm) - Length 0.8 -Post Debridement (cm) - Width 0.2 -Post Debridement (cm) - Depth 0.2 -Total Square (Post) (cm) 0.16 -Area of Debridement (cm) - Length 0.8 -Area of Debridement (cm) - Width 0.2 -Total Square (Area) (cm) 0.16 -Tunneling No -Undermining/Tunneling No -Circular Undermining No -Wound/Ulcer Outcome Not Healed -Ulcer Cleansing Rinsed/ Irrigated with Saline -Foul Odor after Cleansing No -Bioengineered Tissue Yes -Type of Bioengineered Tissue Epifix 18mm Disc -Expiration Date 05/05/29 -Product Lot Number [id number] -Percent Used 100 -Lot number of Saline Used [id number] -Bleeding Controlled with Pressure -Treatment Response Procedure Tolerated Well -Offloading Yes -Type of Offloading Surgical Shoe -Debridement - Subq, 1st 20sq cm No -Apply Skin Sub - 1st 25 sq cm - Feet 1 -Epifix 18mm Disc Application 1-4 3 Pain Scale: 0-10 Numeric Is Patient Pain Free? Yes WC - Nurse 3 - General Ulcer D/C NN Start: 10/04/24 08:56 Freq: Status: Active Protocol: Activity Type Activity Date Activity User E-sign Co-sign Detail Recorded Client Recorded Date Recorded By Document 10/25/24 11:22 ML [id number] 10/25/24 11:23 ML 10/25/24 11:22 Wound Care Center Nurse 3 #5 RT 4TH TOE AMP SITE -Ulcer Cleansing Rinsed/ Irrigated with Saline -Primary Dressing Covered/Secured with Dry Gauze, Secured with Tape Pain Scale: 0-10 Numeric Is Patient Pain Free? Yes Charges/Coding Wound Center CF Procedures HBO Supervision: [id number] Hyperbaric Oxygen; supervision Assessment/Plan Assessment/Plan (1) Type 2 diabetes mellitus with foot ulcer: CODE(S): E11.621 - Type 2 diabetes mellitus with foot ulcer; L97.509 - Non-pressure chronic ulcer of other part of unspecified foot with unspecified severity QUALIFIERS: Diabetes mellitus correction insulin use: with correction use Qualified Code(s): E11.621 - Type 2 diabetes mellitus with foot ulcer; L97.509 - Non-pressure chronic ulcer of other part of unspecified foot with unspecified severity; Z79.4 - supervisor intermediates (current) use of insulin (2) Diabetic foot ulcer with osteomyelitis: CODE(S): E11.621 - Type 2 diabetes mellitus with foot ulcer; E11.69 - Type 2 diabetes mellitus with other specified complication; L97.509 - Non-pressure chronic ulcer of other part of unspecified foot with unspecified severity; M86.9 - Osteomyelitis, unspecified (3) 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 He is doing well and appears to be benefiting from HBOT.
[2024-10-27 08:32] LABS: Bedside Glucose 199 mg/dL (74-106)
[2024-10-27 09:50] VITALS: BP 140/89; BP 182/81; PULSE 75; PULSE 81; RESP 14; RESP 15; TEMP 35.3; TEMP 35.4
[2024-10-27 10:58] LABS: Bedside Glucose 208 mg/dL (74-106)
--- NOTE | 2024-10-27 14:00 | PCM.HBO.PN ---
History of Present Illness Date of Service: 10/27/24 Chief Complaint: HBO for Diabetic Foot Ulcer with Osteomyelitis History of Wound: Mr. Ruelas is a very pleasant 39-year-old male with diabetes coming wound care center today for evaluation for HBO therapy. He started with a blister on his foot after moving about 1.5 months ago. 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 Hood, instructional technology specialist for partial ray amputation to the fourth metatarsal right foot. His operative cultures were positive for proteus, MRSE, MS-CoNS, and strep which he was treated with vanc/unasyn then discharged home on Linezolid and Augmentin (he was seen inpatient by ID). He developed a full-thickness wound post op. He then was admitted to [facility] for CHF and lung exacerbations. He was discharged and referred to the wound care center by his primary doctor. Patient is a diabetic and has had blood sugars around 160 to 170 mg/dL. He is now seeing Dr. Jiang at the wound center for management of his right foot ulcer. He has history of foot ulcers on left foot/great toe, diabetic polyneuropathy, HTN, hyperlipidemia, GERD, Gastroparesis, obesity and CHF. With his most recent hospitalization at [facility], he had a cardiac echo with EF 55-60%. A CXRY that showed Borderline cardiomegaly with interstitial and alveolar haziness bilaterally, could represent mild pulmonary venous congestion. Progress of Wound: Patient's full-thickness wound to the right foot is doing well and healing. He is continuing HBO uneventfully. This was the 9th session of hyperbaric oxygen therapy, of an anticipated 30 such sessions. Tolerance of hyperbaric oxygen therapy: Hyperbaric oxygen therapy was administered as per the facility's protocol. Hyperbaric oxygen therapy was administered at 100% oxygen at 2 calista for 90 minutes without air breaks. The patient tolerated hyperbaric oxygen therapy without complaints or complications. Upon emergence from the hyperbaric chamber, the patient's vital signs remained stable. Blood glucose measurements are as below. Objective Data Objective Data Vital Signs: Vital Signs Temp Pulse Resp BP O2 Del Method 95.6 F L 75 14 182/81 H Room Air 10/27/24 09:50 10/27/24 09:50 10/27/24 09:50 10/27/24 09:50 10/11/24 10:22 Oxygen Delivery Method Room Air Weight: 166.015 kg Body Mass Index (BMI) 48.2 Lab / Micro Data Attestation: I reviewed the patient's lab results. Labs: Laboratory Results - last 24 hr 10/27/24 08:14: POC Glucose 199 H 10/27/24 10:30: POC Glucose 208 H Exam Physical Exam Const alert, oriented x3 and no apparent distress HEENT TM's normal bilaterally Psych mental status grossly normal, thought process normal, cooperative, affect normal and speech normal Nursing Assessment and Debridement Post-Debridement Measurements and Additional Note: Post-Debridement Measurements/Treatment WC - Nurse 1 - General Ulcer Assessment Start: 10/04/24 08:56 Freq: Status: Active Protocol: CASSIE Activity Type Activity Date Activity User E-sign Co-sign Detail Recorded Client Recorded Date Recorded By Document 10/25/24 10:52 ML [id number] 10/25/24 10:58 ML 10/25/24 10:52 WC - Today's Visit Information Type of service Follow-up Visit (Physician/PRENATAL NURSE ) Arrival Mode Ambulatory Transfer Assistance None Patient Identification Verified (Name & Yes ) Patient Requires Transmission-Based No Precautions Finger Stick Blood Sugar(mg/dl) (if 168 indicated): Blood Sugar Stated by Patient Height and Weight Body Mass Index (BMI) 48.2 BMI Classification Obese Vital Signs Temperature (97.8 F-99.1 F) 96.2 F L Temperature Source Temporal Pulse Rate (60-100) 75 Pulse Location Monitor Respiratory Rate (12-18) 16 Respiratory rate source Observation Blood Pressure (90/60-120/80) 169/90 H Blood Pressure Mean (mm Hg) 116 Source Monitor Position Sitting Blood Pressure Location Right Arm History Since Last Visit- (Skip if this is Patient's initial visit) Have you changed medications since your No last visit? Any new allergies or adverse reactions No Had a fall/change in ADL's that may No increase risk of falls Signs or symptoms of abuse and/or No neglect since last visit Have you been in the hospital since your No last visit? Has dressing in place as prescribed Yes Has compression in place as prescribed N/A Has offloadiing in place as prescribed N/A Experienced any changes in pain level or No management Pain Scale: 0-10 Numeric Is Patient Pain Free? Yes - Nurse 1 - General Ulcer Measurement Start: 10/04/24 08:56 Freq: Status: Active Protocol: Activity Type Activity Date Activity User E-sign Co-sign Detail Recorded Client Recorded Date Recorded By Document 10/25/24 10:52 ML [id number] 10/25/24 10:58 ML 10/25/24 10:52 Wound Center Nurse 1 #5 RT 4TH TOE AMP SITE -Current Size (cm) - Length 0.5 -Current Size (cm) - Width 0.1 -Current Size (cm) - Depth 0.1 -Total Square Cm 0.05 -Exudate Amt Small -Exudate Type Serosanguineous -Granulation Amt Small (1-33%) -Slough/Fibrin Yes -Necrosis Amt Small (1-33%) -Texture (Bev-wound Skin Appearance) Assessed -Moisture (Bev-wound Skin Appearance) No Abnormality, Maceration -Color (Bev-wound Skin Appearance) Assessed -Temperature (Bev-wound Skin No Abnormality Appearance) (Pt Warm) -Tenderness on Palpation (Bev-wound No Skin Appearance) -Ulcer Cleansing Soap and Water -Foul Odor after Cleansing No -Anesthetic Used 5% Lidocaine Gel WC - Nurse 2 - General Ulcer CM Notes Start: 10/04/24 08:56 Freq: Status: Active Protocol: Activity Type Activity Date Activity User E-sign Co-sign Detail Recorded Client Recorded Date Recorded By Document 10/25/24 11:13 [id number] [id number] 10/25/24 11:18 10/25/24 11:13 Wound Center Nurse 2 -Time 11:13 -Correct Patient Yes -Correct Side, Site, Position Yes -Correct Procedure Yes -Procedure Performed Yes -Type of Procedure Debridement -Clinical Debridement Subcutaneous -Tissue Removed Subcutaneous -Post Debridement (cm) - Length 0.8 -Post Debridement (cm) - Width 0.2 -Post Debridement (cm) - Depth 0.2 -Total Square (Post) (cm) 0.16 -Area of Debridement (cm) - Length 0.8 -Area of Debridement (cm) - Width 0.2 -Total Square (Area) (cm) 0.16 -Tunneling No -Undermining/Tunneling No -Circular Undermining No -Wound/Ulcer Outcome Not Healed -Ulcer Cleansing Rinsed/ Irrigated with Saline -Foul Odor after Cleansing No -Bioengineered Tissue Yes -Type of Bioengineered Tissue Epifix 18mm Disc -Expiration Date 05/05/29 -Product Lot Number [id number] -Percent Used 100 -Lot number of Saline Used [id number] -Bleeding Controlled with Pressure -Treatment Response Procedure Tolerated Well -Offloading Yes -Type of Offloading Surgical Shoe -Debridement - Subq, 1st 20sq cm No -Apply Skin Sub - 1st 25 sq cm - Feet 1 -Epifix 18mm Disc Application 1-4 3 Pain Scale: 0-10 Numeric Is Patient Pain Free? Yes WC - Nurse 3 - General Ulcer D/C NN Start: 10/04/24 08:56 Freq: Status: Active Protocol: Activity Type Activity Date Activity User E-sign Co-sign Detail Recorded Client Recorded Date Recorded By Document 10/25/24 11:22 ML [id number] 10/25/24 11:23 ML 10/25/24 11:22 Wound Care Center Nurse 3 #5 RT 4TH TOE AMP SITE -Ulcer Cleansing Rinsed/ Irrigated with Saline -Primary Dressing Covered/Secured with Dry Gauze, Secured with Tape Pain Scale: 0-10 Numeric Is Patient Pain Free? Yes Assessment/Plan Assessment/Plan (1) Type 2 diabetes mellitus with foot ulcer: CODE(S): E11.621 - Type 2 diabetes mellitus with foot ulcer; L97.509 - Non-pressure chronic ulcer of other part of unspecified foot with unspecified severity QUALIFIERS: Diabetes mellitus supervisor intermediates insulin use: with prison use Qualified Code(s): E11.621 - Type 2 diabetes mellitus with foot ulcer; L97.509 - Non-pressure chronic ulcer of other part of unspecified foot with unspecified severity; Z79.4 - intermodal dispatcher (current) use of insulin (2) Diabetic foot ulcer with osteomyelitis: CODE(S): E11.621 - Type 2 diabetes mellitus with foot ulcer; E11.69 - Type 2 diabetes mellitus with other specified complication; L97.509 - Non-pressure chronic ulcer of other part of unspecified foot with unspecified severity; M86.9 - Osteomyelitis, unspecified (3) 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 He is doing well and appears to be benefiting from HBOT.
[2024-10-30 08:37] LABS: Bedside Glucose 139 mg/dL (74-106)
--- NOTE | 2024-10-30 08:57 | HBO.PN.PCM_ITS ---
History of Present Illness Date of Service: 10/30/24 Chief Complaint: HBO for Diabetic Foot Ulcer with Osteomyelitis History of Wound: Mr. Ruelas is a very pleasant 39-year-old male with diabetes coming wound care center today for evaluation for HBO therapy. He started with a blister on his foot after moving about 1.5 months ago. 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 Hood, body maker for partial ray amputation to the fourth metatarsal right foot. His operative cultures were positive for proteus, MRSE, MS-CoNS, and strep which he was treated with vanc/unasyn then discharged home on Linezolid and Augmentin (he was seen inpatient by ID). He developed a full-thickness wound post op. He then was admitted to [facility] for CHF and lung exacerbations. He was discharged and referred to the wound care center by his [facility] doctor. Patient is a diabetic and has had blood sugars around 160 to 170 mg/dL. He is now seeing Dr. Jiang at the wound center for management of his right foot ulcer. He has history of foot ulcers on left foot/great toe, diabetic polyneuropathy, HTN, hyperlipidemia, GERD, Gastroparesis, obesity and CHF. With his most recent hospitalization at [facility], he had a cardiac echo with EF 55-60%. A CXRY that showed Borderline cardiomegaly with interstitial and alveolar haziness bilaterally, could represent mild pulmonary venous congestion. Progress of Wound: Patient's full-thickness wound to the right foot is doing well and healing. He is continuing HBO uneventfully. This was the 10th session of hyperbaric oxygen therapy, of an anticipated 30 such sessions. Tolerance of hyperbaric oxygen therapy: Hyperbaric oxygen therapy was administered as per the facility's protocol. Hyperbaric oxygen therapy was administered at 100% oxygen at 2 calista for 90 minutes without air breaks. The patient tolerated hyperbaric oxygen therapy without complaints or complications. Upon emergence from the hyperbaric chamber, the patient's vital signs remained stable. Blood glucose measurements are as below. Objective Data Objective Data Vital Signs: Vital Signs Temp Pulse Resp BP O2 Del Method 95.6 F L 75 14 182/81 H Room Air 10/27/24 09:50 10/27/24 09:50 10/27/24 09:50 10/27/24 09:50 10/11/24 10:22 Oxygen Delivery Method Room Air Weight: 366 lb Body Mass Index (BMI) 48.2 Lab / Micro Data Labs: Laboratory Results - last 24 hr 10/30/24 08:17: POC Glucose 139 H Exam Physical Exam Const alert, oriented x3 and no apparent distress General Appearance: cooperative HEENT normocephalic HEENT Narrative: TMs visualized, but tortuous external auditory canal, so could not see the bony landmarks, but saw a clear posterior aspect of the TM that with no bulging,redness, or fluid collections. Resp normal respiratory effort, no use of accessory muscles and clear to auscultation bilaterally Effort and Inspection: able to speak in complete sentences Cardio regular rate and regular rhythm Psych affect normal Appearance: grossly normal Charges/Coding Wound Center CF Procedures HBO Supervision: [id number] Hyperbaric Oxygen; supervision Assessment/Plan Assessment/Plan (1) Type 2 diabetes mellitus with foot ulcer: CODE(S): E11.621 - Type 2 diabetes mellitus with foot ulcer; L97.509 - Non-pressure chronic ulcer of other part of unspecified foot with unspecified severity QUALIFIERS: Diabetes mellitus adjunct faculty for medical terminology insulin use: with retirement use Qualified Code(s): E11.621 - Type 2 diabetes mellitus with foot ulcer; L97.509 - Non-pressure chronic ulcer of other part of unspecified foot with unspecified severity; Z79.4 - USP (current) use of insulin (2) Diabetic foot ulcer with osteomyelitis: CODE(S): E11.621 - Type 2 diabetes mellitus with foot ulcer; E11.69 - Type 2 diabetes mellitus with other specified complication; L97.509 - Non-pressure chronic ulcer of other part of unspecified foot with unspecified severity; M86.9 - Osteomyelitis, unspecified (3) 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 He is doing well and appears to be benefiting from HBOT.
[2024-10-30 10:45] VITALS: BP 135/68; BP 137/66; PULSE 63; PULSE 68; RESP 16; RESP 18; TEMP 35.7; TEMP 35.9
[2024-10-30 10:54] LABS: Bedside Glucose 169 mg/dL (74-106)
[2024-11-01 08:26] LABS: Bedside Glucose 208 mg/dL (74-106)
[2024-11-01 10:36] VITALS: BP 151/86; BP 160/77; PULSE 66; PULSE 69; RESP 16; TEMP 35.7; TEMP 35.8
[2024-11-01 10:46] LABS: Bedside Glucose 218 mg/dL (74-106)
[2024-11-01 10:48] VITALS: BP 160/77; PULSE 66; RESP 16; TEMP 35.8; BMI 48.2
--- NOTE | 2024-11-01 11:51 | HBO.PN.PCM_ITS ---
History of Present Illness Date of Service: 11/01/24 Chief Complaint: HBO for Diabetic Foot Ulcer with Osteomyelitis History of Wound: Mr. Ruelas is a very pleasant 39-year-old male with diabetes coming wound care center today for evaluation for HBO therapy. He started with a blister on his foot after moving about 1.5 months ago. 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 Hood, billposter for partial ray amputation to the fourth metatarsal right foot. His operative cultures were positive for proteus, MRSE, MS-CoNS, and strep which he was treated with vanc/unasyn then discharged home on Linezolid and Augmentin (he was seen inpatient by ID). He developed a full-thickness wound post op. He then was admitted to [facility] for CHF and lung exacerbations. He was discharged and referred to the wound care center by his [facility] doctor. Patient is a diabetic and has had blood sugars around 160 to 170 mg/dL. He is now seeing Dr. Jiang at the wound center for management of his right foot ulcer. He has history of foot ulcers on left foot/great toe, diabetic polyneuropathy, HTN, hyperlipidemia, GERD, Gastroparesis, obesity and CHF. With his most recent hospitalization at [facility], he had a cardiac echo with EF 55-60%. A CXRY that showed Borderline cardiomegaly with interstitial and alveolar haziness bilaterally, could represent mild pulmonary venous congestion. Progress of Wound: Patient's full-thickness wound to the right foot is doing well and healing. He is continuing HBO uneventfully. This was the 11th session of hyperbaric oxygen therapy, of an anticipated 30 such sessions. Tolerance of hyperbaric oxygen therapy: Hyperbaric oxygen therapy was administered as per the facility's protocol. Hyperbaric oxygen therapy was administered at 100% oxygen at 2 calista for 90 minutes without air breaks. The patient tolerated hyperbaric oxygen therapy without complaints or complications. Upon emergence from the hyperbaric chamber, the patient's vital signs remained stable. Blood glucose measurements are as below. Subjective Subjective Patient has no concerns Objective Data Objective Data Patient admitted and discharged with stable vital signs and blood sugars Vital Signs: Vital Signs Temp Pulse Resp BP O2 Del Method 96.4 F L 66 16 160/77 H Room Air 11/01/24 10:48 04/30/25 10:48 11/01/24 10:48 11/01/24 10:48 10/11/24 10:22 Oxygen Delivery Method Room Air Weight: 366 lb Body Mass Index (BMI) 48.2 Lab / Micro Data Labs: Laboratory Results - last 24 hr 11/01/24 08:09: POC Glucose 208 H 11/01/24 10:28: POC Glucose 218 H Exam Physical Exam Const alert, oriented x3 and no apparent distress General Appearance: cooperative HEENT normocephalic and TM's normal bilaterally Resp normal respiratory effort, no use of accessory muscles and clear to auscultation bilaterally Effort and Inspection: able to speak in complete sentences Cardio regular rate and regular rhythm Psych affect normal Appearance: grossly normal Nursing Assessment and Debridement Post-Debridement Measurements and Additional Note: Post-Debridement Measurements/Treatment WC - Nurse 1 - General Ulcer Assessment Start: 10/04/24 08:56 Freq: Status: Active Protocol: .LOWEXCathy Activity Type Activity Date Activity User E-sign Co-sign Detail Recorded Client Recorded Date Recorded By Document 11/01/24 10:48 ML [id number] 11/01/24 10:50 ML 11/01/24 10:48 WC - Today's Visit Information Type of service Follow-up Visit (Physician/FUDGER ) Arrival Mode Ambulatory Transfer Assistance None Patient Identification Verified (Name & Yes ) Patient Requires Transmission-Based No Precautions Height and Weight Body Mass Index (BMI) 48.2 BMI Classification Obese Vital Signs Temperature (97.8 F-99.1 F) 96.4 F L Temperature Source Temporal Pulse Rate (60-100) 66 Pulse Location Monitor Respiratory Rate (12-18) 16 Respiratory rate source Observation Blood Pressure (90/60-120/80) 160/77 H Blood Pressure Mean (mm Hg) 104 Source Monitor Position Sitting Blood Pressure Location Right Arm History Since Last Visit- (Skip if this is Patient's initial visit) Have you changed medications since your No last visit? Any new allergies or adverse reactions No Had a fall/change in ADL's that may No increase risk of falls Signs or symptoms of abuse and/or No neglect since last visit Have you been in the hospital since your No last visit? Has dressing in place as prescribed Yes Has compression in place as prescribed N/A Has offloadiing in place as prescribed N/A Experienced any changes in pain level or No management Pain Scale: 0-10 Numeric Is Patient Pain Free? Yes WC - Nurse 1 - General Ulcer Measurement Start: 10/04/24 08:56 Freq: Status: Active Protocol: Activity Type Activity Date Activity User E-sign Co-sign Detail Recorded Client Recorded Date Recorded By Document 11/01/24 10:48 ML [id number] 11/01/24 10:50 ML 11/01/24 10:48 Wound Center Nurse 1 #5 RT 4TH TOE AMP SITE -Current Size (cm) - Length 0.5 -Current Size (cm) - Width 0.1 -Current Size (cm) - Depth 0.1 -Total Square Cm 0.05 -Exudate Amt Medium -Exudate Type Serosanguineous -Wound Margin Distinct, Outline Attached -Granulation Amt Small (1-33%) -Slough/Fibrin Yes -Necrosis Amt Small (1-33%) -Necrotic Tissue Type Adherent Slough -Texture (Bev-wound Skin Appearance) Assessed -Moisture (Bev-wound Skin Appearance) Assessed -Color (Bev-wound Skin Appearance) Assessed -Temperature (Bev-wound Skin No Abnormality Appearance) (Pt Warm) -Tenderness on Palpation (Bev-wound No Skin Appearance) -Ulcer Cleansing Rinsed/ Irrigated with Saline -Foul Odor after Cleansing No -Anesthetic Used 5% Lidocaine Gel WC - Nurse 2 - General Ulcer CM Notes Start: 10/04/24 08:56 Freq: Status: Active Protocol: Activity Type Activity Date Activity User E-sign Co-sign Detail Recorded Client Recorded Date Recorded By Document 11/01/24 11:15 HELIO [id number] 11/01/24 11:17 HELIO 11/01/24 11:15 Wound Center Nurse 2 -Time 11:15 -Correct Patient Yes -Correct Side, Site, Position Yes -Correct Procedure Yes -Procedure Performed Yes -Type of Procedure Debridement -Clinical Debridement Subcutaneous -Tissue Removed Subcutaneous -Post Debridement (cm) - Length 0.6 -Post Debridement (cm) - Width 0.2 -Post Debridement (cm) - Depth 0.2 -Total Square (Post) (cm) 0.12 -Area of Debridement (cm) - Length 0.6 -Area of Debridement (cm) - Width 0.2 -Total Square (Area) (cm) 0.12 -Tunneling No -Undermining/Tunneling No -Circular Undermining No -Wound/Ulcer Outcome Not Healed -Ulcer Cleansing Rinsed/ Irrigated with Saline -Foul Odor after Cleansing No -Bioengineered Tissue Yes -Type of Bioengineered Tissue Epifix 18mm Disc -Expiration Date 05/05/29 -Product Lot Number [id number] -Percent Used 100 -Lot number of Saline Used [id number] -Bleeding Controlled with Pressure -Treatment Response Procedure Tolerated Well -Offloading Yes -Type of Offloading Surgical Shoe -Debridement - Subq, 1st 20sq cm No -Apply Skin Sub - 1st 25 sq cm - Feet 1 -Epifix 18mm Disc Application 1-4 3 Pain Scale: 0-10 Numeric Is Patient Pain Free? Yes - Nurse 3 - General Ulcer D/C NN Start: 10/04/24 08:56 Freq: Status: Active Protocol: Activity Type Activity Date Activity User E-sign Co-sign Detail Recorded Client Recorded Date Recorded By Document 10/30/24 10:50 [id number] 10/30/24 10:50 Document 11/01/24 11:26 ML [id number] 11/01/24 11:27 ML 10/30/24 11/01/24 10:50 11:26 Wound Care Center Nurse 3 #5 RT 4TH TOE AMP SITE -Primary Dressing Covered/Secured with Dry Gauze & Roll Gauze, Secured with Tape -Other Covering JENNIFFER Pain Scale: 0-10 Numeric Is Patient Pain Free? Yes Yes - Visit Discharge Discharge Condition Stable Ambulatory Status Ambulatory Transportation Private Auto Assessment/Plan Assessment/Plan (1) Type 2 diabetes mellitus with foot ulcer: CODE(S): E11.621 - Type 2 diabetes mellitus with foot ulcer; L97.509 - Non-pressure chronic ulcer of other part of unspecified foot with unspecified severity QUALIFIERS: Diabetes mellitus penitentiary insulin use: with tank terminal gauger use Qualified Code(s): E11.621 - Type 2 diabetes mellitus with foot ulcer; L97.509 - Non-pressure chronic ulcer of other part of unspecified foot with unspecified severity; Z79.4 - detention (current) use of insulin (2) Diabetic foot ulcer with osteomyelitis: CODE(S): E11.621 - Type 2 diabetes mellitus with foot ulcer; E11.69 - Type 2 diabetes mellitus with other specified complication; L97.509 - Non-pressure chronic ulcer of other part of unspecified foot with unspecified severity; M86.9 - Osteomyelitis, unspecified (3) 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 He was evaluated by ENT for possible tube placement due to some discomfort on initial dive, but they determined that he does not need to have tubes placed. Doing well and appears to be benefiting from HBOT.
--- NOTE | 2024-11-06 12:36 | PN.PCM_ITS ---
History of Present Illness Date of Service: 11/01/24 Chief Complaint: HBO for Diabetic Foot Ulcer with Osteomyelitis History of Wound: Mr. Ruelas is a very pleasant 39-year-old male with diabetes coming wound care center today for evaluation for HBO therapy. He started with a blister on his foot after moving about 1.5 months ago. 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 Hood, business banking representative for partial ray amputation to the fourth metatarsal right foot. His operative cultures were positive for proteus, MRSE, MS-CoNS, and strep which he was treated with vanc/unasyn then discharged home on Linezolid and Augmentin (he was seen inpatient by ID). He developed a full-thickness wound post op. He then was admitted to [facility] for CHF and lung exacerbations. He was discharged and referred to the wound care center by his [facility] doctor. Patient is a diabetic and has had blood sugars around 160 to 170 mg/dL. He is now seeing Dr. Jiang at the wound center for management of his right foot ulcer. He has history of foot ulcers on left foot/great toe, diabetic polyneuropathy, HTN, hyperlipidemia, GERD, Gastroparesis, obesity and CHF. With his most recent hospitalization at [facility], he had a cardiac echo with EF 55-60%. A CXRY that showed Borderline cardiomegaly with interstitial and alveolar haziness bilaterally, could represent mild pulmonary venous congestion. Progress of Wound: Patient's full-thickness wound to the right foot is doing well and healing. He is continuing HBO uneventfully. This was the 11th session of hyperbaric oxygen therapy, of an anticipated 30 such sessions. Tolerance of hyperbaric oxygen therapy: Hyperbaric oxygen therapy was administered as per the facility's protocol. Hyperbaric oxygen therapy was administered at 100% oxygen at 2 calista for 90 minutes without air breaks. The patient tolerated hyperbaric oxygen therapy without complaints or complications. Upon emergence from the hyperbaric chamber, the patient's vital signs remained stable. Blood glucose measurements are as below. Subjective Subjective Patient is a 39-year-old diabetic male presenting the wound care center today for follow-up evaluation of full-thickness wound status post fourth ray resection with amnion to skin graft substitute to the right foot. Patient has been doing HBO dives uneventfully. Blood sugar well-controlled. He is left his dressing clean dry and intact. Grateful for his care. Denies trauma. Denies constitutional symptoms. No other pedal complaints at this time. Objective Data Objective Data Vital Signs: Vital Signs Temp Pulse Resp BP O2 Del Method 96.4 F L 66 16 160/77 H Room Air 11/01/24 10:48 11/01/24 10:48 11/01/24 10:48 11/01/24 10:48 10/11/24 10:22 Oxygen Delivery Method Room Air Weight: 166.015 kg Body Mass Index (BMI) 48.2 Physical Exam Narrative Vascular: DP and PT pulses are palpable to the right lower extremity. CFT is brisk. No erythema to the right foot. Nonpitting edema to the right foot and ankle. Neurological: Light touch intact. Protective station is diminished. Patient does respond to painful stimuli. Dermatological: Full-thickness wound at the level of the status post fourth ray amputation to the right foot measuring 0.6 x 0.2 x 0.2 cm. No probe to bone. No malodor. No purulent drainage noted. Excisional debridement down to and including subcutaneous tissue, muscle, fascia of the right foot full-thickness wound with a number 5 mm dermal curette without incident. Predebridement measurement was 0.4 x 0.1 x 0.1 cm. Postdebridement measurement is 0.6 x 0.2 x 0.2 cm. EpiFix 18 mm disc cm was applied to the right full-thickness ulceration with 100% use. Eighth application. The graft site was free and clear of any infection. The wound/skin graft substitute was dressed with nonadherent bandage secured in place with Steri-Strips followed by bolster dressing as well as a double layer Tubigrip. Musculoskeletal: Muscle strength is 5 out of 5 in all quadrants to the right lower extremity. No pain on palpation of the full-thickness wound. No pain with calf pressure. Debridement Note Debridement Note Debridement Free Text: Excisional debridement down to and including subcutaneous tissue, muscle, fascia of the right foot full-thickness wound with a number 5 mm dermal curette without incident. Predebridement measurement was 0.4 x 0.1 x 0.1 cm. Postdebridement measurement is 0.6 x 0.2 x 0.2 cm. EpiFix 18 mm disc cm was applied to the right full-thickness ulceration with 100% use. Eighth application. The graft site was free and clear of any infection. The wound/skin graft substitute was dressed with nonadherent bandage secured in place with Steri-Strips followed by bolster dressing as well as a double layer Tubigrip. Assessment/Plan Assessment/Plan (1) Type 2 diabetes mellitus with foot ulcer: CODE(S): E11.621 - Type 2 diabetes mellitus with foot ulcer; L97.509 - Non-pressure chronic ulcer of other part of unspecified foot with unspecified severity QUALIFIERS: Diabetes mellitus care home insulin use: with care home use Qualified Code(s): E11.621 - Type 2 diabetes mellitus with foot ulcer; L97.509 - Non-pressure chronic ulcer of other part of unspecified foot with unspecified severity; Z79.4 - terminal supervisor (current) use of insulin PLAN: Patient was examined and evaluated. All findings were discussed with the patient. All questions were answered to the patient's satisfaction. Excisional debridement down to and including subcutaneous tissue, muscle, fascia of the right foot full-thickness wound with a number 5 mm dermal curette without incident. Predebridement measurement was 0.4 x 0.1 x 0.1 cm. Postdebridement measurement is 0.6 x 0.2 x 0.2 cm. EpiFix 18 mm disc cm was applied to the right full-thickness ulceration with 100% use. Eighth application. The graft site was free and clear of any infection. The wound/skin graft substitute was dressed with nonadherent bandage secured in place with Steri-Strips followed by bolster dressing as well as a double layer Tubigrip. Patient will continue his HBO dives as tolerated. Educated patient continue strict blood sugar control. Follow-up at the wound care center with Dr. Jiang in 1 week. 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
== END 2024-11-01 23:59 | disposition home or self-care (01) ==
LOC: WC 08:30
PROVIDERS: PCP Nurse Practitioner Family; Referring Provider Nurse Practitioner Family; Visit Provider Podiatrist Foot & Ankle Surgery
DX: E11.621 Type 2 diabetes mellitus with foot ulcer (principal); L97.515 Non-pressure chronic ulcer of other part of right foot with muscle involvement without evidence of necrosis; M86.8X7 Other osteomyelitis, ankle and foot; I11.0 Hypertensive heart disease with heart failure; I50.9 Heart failure, unspecified; Z68.42 Body mass index [BMI] 45.0-49.9, adult; E11.42 Type 2 diabetes mellitus with diabetic polyneuropathy; E11.69 Type 2 diabetes mellitus with other specified complication; E11.43 Type 2 diabetes mellitus with diabetic autonomic (poly)neuropathy; Z79.4 Long term (current) use of insulin; E78.5 Hyperlipidemia, unspecified; S90.821S Blister (nonthermal), right foot, sequela; X58.XXXS Exposure to other specified factors, sequela; K21.9 Gastro-esophageal reflux disease without esophagitis; E66.9 Obesity, unspecified; Z79.84 Long term (current) use of oral hypoglycemic drugs; Z79.899 Other long term (current) drug therapy
CPT/HCPCS: 15275; 82962; 99183; Q4186; Q4187; G0277

== ENCOUNTER 2024-11-22 09:30 | Outpatient (RCR) | payer MEDICARE, SELFPAY ==
[2024-11-02 00:29] VITALS: BP 151/86; BP 160/77; PULSE 66; PULSE 69; BMI 48.2
[2024-11-02 00:30] VITALS: RESP 16; TEMP 35.7; TEMP 35.8
[2024-11-02 08:39] LABS: Bedside Glucose 226 mg/dL (74-106)
[2024-11-02 10:11] VITALS: BP 123/64; BP 172/93; PULSE 65; PULSE 67; RESP 14; RESP 15; TEMP 35.2; TEMP 35.8
--- NOTE | 2024-11-02 10:16 | HBO.PN.PCM_ITS ---
History of Present Illness Date of Service: 11/02/24 Chief Complaint: HBO for Diabetic Foot Ulcer with Osteomyelitis History of Wound: Mr. Ruelas is a very pleasant 39-year-old male with diabetes coming wound care center today for evaluation for HBO therapy. He started with a blister on his foot after moving about 1.5 months ago. 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 Hood, public speaking teacher for partial ray amputation to the fourth metatarsal right foot. His operative cultures were positive for proteus, MRSE, MS-CoNS, and strep which he was treated with vanc/unasyn then discharged home on Linezolid and Augmentin (he was seen inpatient by ID). He developed a full-thickness wound post op. He then was admitted to [facility] for CHF and lung exacerbations. He was discharged and referred to the wound care center by his [facility] doctor. Patient is a diabetic and has had blood sugars around 160 to 170 mg/dL. He is now seeing Dr. Jiang at the wound center for management of his right foot ulcer. He has history of foot ulcers on left foot/great toe, diabetic polyneuropathy, HTN, hyperlipidemia, GERD, Gastroparesis, obesity and CHF. With his most recent hospitalization at [facility], he had a cardiac echo with EF 55-60%. A CXRY that showed Borderline cardiomegaly with interstitial and alveolar haziness bilaterally, could represent mild pulmonary venous congestion. Progress of Wound: This is his 12th session of hyperbaric oxygen treatment. Tolerance: Hyperbaric oxygen therapy was administered as per the facility's protocol. 100% oxygen at 2 TOYIN for 90 minutes without air breaks. Hyperbaric treatment was tolerated without any complications or concerns. He was discharged in stable condition. Pre and post blood glucose readings as documented. Objective Data Objective Data Vital Signs: Vital Signs Temp Pulse Resp BP 95.3 F L 67 14 172/93 H 11/02/24 10:11 11/02/24 10:11 11/02/24 10:11 11/02/24 10:11 Weight: 366 lb Body Mass Index (BMI) 48.2 Lab / Micro Data Labs: Laboratory Results - last 24 hr 11/02/24 08:22: POC Glucose 226 H Exam Physical Exam Const alert, oriented x3 and no apparent distress General Appearance: cooperative, comfortable and well kempt HEENT normocephalic, head/scalp atraumatic and hearing grossly normal bilaterally Tympanic Membrane: TM's normal bilaterally Eyes EOMs intact bilaterally Neck full ROM and supple Resp normal respiratory effort and no use of accessory muscles Neuro oriented x3, CN's II-XII intact bilaterally, moves all extremities and no focal motor deficits Psych mental status grossly normal, thought process normal, cooperative and affect normal Charges/Coding Wound Center CF Procedures HBO Supervision: [id number] Hyperbaric Oxygen; supervision Assessment/Plan Assessment/Plan (1) Type 2 diabetes mellitus with foot ulcer: CODE(S): E11.621 - Type 2 diabetes mellitus with foot ulcer; L97.509 - Non-pressure chronic ulcer of other part of unspecified foot with unspecified severity QUALIFIERS: Diabetes mellitus intermediate insulin use: with terminal block assembler use Qualified Code(s): E11.621 - Type 2 diabetes mellitus with foot ulcer; L97.509 - Non-pressure chronic ulcer of other part of unspecified foot with unspecified severity; Z79.4 - intermediate (current) use of insulin (2) Diabetic foot ulcer with osteomyelitis: CODE(S): E11.621 - Type 2 diabetes mellitus with foot ulcer; E11.69 - Type 2 diabetes mellitus with other specified complication; L97.509 - Non-pressure chronic ulcer of other part of unspecified foot with unspecified severity; M86.9 - Osteomyelitis, unspecified (3) 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 This note was generated with [employer] software. It may contain incorrect words, spelling, and punctuation that were not noted in checking the note before signing.
[2024-11-02 10:56] LABS: Bedside Glucose 103 mg/dL (74-106)
[2024-11-03 08:45] LABS: Bedside Glucose 228 mg/dL (74-106)
[2024-11-03 11:09] LABS: Bedside Glucose 158 mg/dL (74-106)
[2024-11-03 11:41] VITALS: BP 133/79; BP 187/95; PULSE 75; PULSE 76; RESP 14; RESP 15; TEMP 35.3; TEMP 35.8
--- NOTE | 2024-11-03 13:33 | HBO.PN.PCM_ITS ---
History of Present Illness Date of Service: 11/03/24 Chief Complaint: HBO for Diabetic Foot Ulcer with Osteomyelitis History of Wound: Mr. Ruelas is a very pleasant 39-year-old male with diabetes coming wound care center today for evaluation for HBO therapy. He started with a blister on his foot after moving about 1.5 months ago. 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 Hood, managed care manager for partial ray amputation to the fourth metatarsal right foot. His operative cultures were positive for proteus, MRSE, MS-CoNS, and strep which he was treated with vanc/unasyn then discharged home on Linezolid and Augmentin (he was seen inpatient by ID). He developed a full-thickness wound post op. He then was admitted to [facility] for CHF and lung exacerbations. He was discharged and referred to the wound care center by his [facility] doctor. Patient is a diabetic and has had blood sugars around 160 to 170 mg/dL. He is now seeing Dr. Jiang at the wound center for management of his right foot ulcer. He has history of foot ulcers on left foot/great toe, diabetic polyneuropathy, HTN, hyperlipidemia, GERD, Gastroparesis, obesity and CHF. With his most recent hospitalization at [facility], he had a cardiac echo with EF 55-60%. A CXRY that showed Borderline cardiomegaly with interstitial and alveolar haziness bilaterally, could represent mild pulmonary venous congestion. Progress of Wound: This is his 13th session of hyperbaric oxygen treatment. Tolerance: Hyperbaric oxygen therapy was administered as per the facility's protocol. 100% oxygen at 2 TOYIN for 90 minutes without air breaks. Hyperbaric treatment was tolerated without any complications or concerns. He was discharged in stable condition. Pre and post blood glucose readings as documented. Objective Data Objective Data Vital Signs: Vital Signs Temp Pulse Resp BP 96.5 F L 76 15 133/79 H 11/03/24 11:41 11/03/24 11:41 11/03/24 11:41 11/03/24 11:41 Weight: 166.015 kg Body Mass Index (BMI) 48.2 Lab / Micro Data Labs: Laboratory Results - last 24 hr 11/03/24 08:28: POC Glucose 228 H 05/02/25 10:41: POC Glucose 158 H Exam Physical Exam Const alert, oriented x3 and no apparent distress General Appearance: cooperative, comfortable and well kempt HEENT normocephalic, head/scalp atraumatic and hearing grossly normal bilaterally Tympanic Membrane: TM's normal bilaterally Eyes EOMs intact bilaterally Neck full ROM and supple Resp normal respiratory effort and no use of accessory muscles Neuro oriented x3, CN's II-XII intact bilaterally, moves all extremities and no focal motor deficits Psych mental status grossly normal, thought process normal, cooperative and affect normal Assessment/Plan Assessment/Plan (1) Type 2 diabetes mellitus with foot ulcer: CODE(S): E11.621 - Type 2 diabetes mellitus with foot ulcer; L97.509 - Non-pressure chronic ulcer of other part of unspecified foot with unspecified severity QUALIFIERS: Diabetes mellitus terminal worker insulin use: with terminal worker use Qualified Code(s): E11.621 - Type 2 diabetes mellitus with foot ulcer; L97.509 - Non-pressure chronic ulcer of other part of unspecified foot with unspecified severity; Z79.4 - terminal make up operator (current) use of insulin (2) Diabetic foot ulcer with osteomyelitis: CODE(S): E11.621 - Type 2 diabetes mellitus with foot ulcer; E11.69 - Type 2 diabetes mellitus with other specified complication; L97.509 - Non-pressure chronic ulcer of other part of unspecified foot with unspecified severity; M86.9 - Osteomyelitis, unspecified (3) 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 This note was generated with [employer] software. It may contain incorrect words, spelling, and punctuation that were not noted in checking the note before signing.
[2024-11-07 12:34] LABS: Bedside Glucose 147 mg/dL (74-106)
[2024-11-08 08:39] LABS: Bedside Glucose 123 mg/dL (74-106)
[2024-11-08 09:06] LABS: Bedside Glucose 150 mg/dL (74-106)
[2024-11-08 09:36] VITALS: BP 152/90; PULSE 86; RESP 16; BMI 48.2
--- NOTE | 2024-11-08 10:44 | NURSING ---
Pt couldn't receive HBOT today d/t elevate b/p of 198/116 taken again manually 190/118. Alanna was informed and suggested calling Dr. Dunaway to have him seen. I called and scheduled patient an appointment.Pt and Alanna aware.
--- NOTE | 2024-11-08 11:47 | PCM.WC.PN ---
History of Present Illness Date of Service: 11/08/24 Chief Complaint: HBO for Diabetic Foot Ulcer with Osteomyelitis History of Wound: Mr. Ruelas is a very pleasant 39-year-old male with diabetes coming wound care center today for evaluation for HBO therapy. He started with a blister on his foot after moving about 1.5 months ago. 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 Hood, pie topper for partial ray amputation to the fourth metatarsal right foot. His operative cultures were positive for proteus, MRSE, MS-CoNS, and strep which he was treated with vanc/unasyn then discharged home on Linezolid and Augmentin (he was seen inpatient by ID). He developed a full-thickness wound post op. He then was admitted to [facility] [place] for CHF and lung exacerbations. He was discharged and referred to the wound care center by his primary doctor. Patient is a diabetic and has had blood sugars around 160 to 170 mg/dL. He is now seeing Dr. Jiang at the wound center for management of his right foot ulcer. He has history of foot ulcers on left foot/great toe, diabetic polyneuropathy, HTN, hyperlipidemia, GERD, Gastroparesis, obesity and CHF. With his most recent hospitalization at [facility], he had a cardiac echo with EF 55-60%. A CXRY that showed Borderline cardiomegaly with interstitial and alveolar haziness bilaterally, could represent mild pulmonary venous congestion. Progress of Wound: Stable full-thickness wound healing with HBO and amniotic skin graft substitute right fourth digit amputation site. Subjective Subjective Mr. Ruelas is a 39-year-old diabetic male presenting to clinic today for follow-up evaluation of full-thickness wound status post fourth ray resection to the right foot. He has been doing HBO and getting amniotic skin graft substitute weekly. He admits to great improvement with his wound. He denies any trauma or skin breakdown. He has been ambulating much more than normal due to life issues. He admits to some swelling to the right leg. He denies trauma. Denies constitutional symptoms. No other pedal complaints at this time. Objective Data Objective Data Vital Signs: Vital Signs Temp Pulse Resp BP O2 Del Method 96.5 F L 86 16 152/90 H Room Air 11/03/24 11:41 11/08/24 09:36 11/08/24 09:36 11/08/24 09:36 11/08/24 09:36 Oxygen Delivery Method Room Air Weight: 166.015 kg Body Mass Index (BMI) 48.2 Lab / Micro Data Labs: Laboratory Results - last 24 hr 11/07/24 12:16: POC Glucose 147 H 11/08/24 08:21: POC Glucose 123 H 11/08/24 08:48: POC Glucose 150 H Physical Exam Narrative Vascular: DP and PT pulses are palpable to the right lower extremity. CFT is brisk. No erythema to the right foot. +1 pitting edema to the right lower extremity. Neurological: Light touch intact. Protective station is diminished. Patient does respond to painful stimuli. Dermatological: Full-thickness wound at the level of the status post fourth ray amputation to the right foot measuring 1.0 x 0.2 x 0.2 cm. No probe to bone. No malodor. No purulent drainage noted. Evidence of sanguinous drainage to the right foot full-thickness wound. Excisional debridement down to and including subcutaneous tissue of the right foot full-thickness wound with a number 5 mm dermal curette without incident. Predebridement measurement was 0.6 x 0.2 x 0.1 cm. Postdebridement measurement is 1.0 x 0.2 x 0.2 cm. EpiFix 18 mm disc cm was applied to the right full-thickness ulceration with 100% use. Ninth application. The graft site was free and clear of any infection. The wound/skin graft substitute was dressed with nonadherent bandage secured in place with Steri-Strips followed by bolster dressing as well as a double layer Tubigrip. Musculoskeletal: Muscle strength is 5 out of 5 in all quadrants to the right lower extremity. No pain on palpation of the full-thickness wound. No pain with calf pressure. Debridement Note Debridement Note Debridement Free Text: Excisional debridement down to and including subcutaneous tissue of the right foot full-thickness wound with a number 5 mm dermal curette without incident. Predebridement measurement was 0.6 x 0.2 x 0.1 cm. Postdebridement measurement is 1.0 x 0.2 x 0.2 cm. EpiFix 18 mm disc cm was applied to the right full-thickness ulceration with 100% use. Ninth application. The graft site was free and clear of any infection. The wound/skin graft substitute was dressed with nonadherent bandage secured in place with Steri-Strips followed by bolster dressing as well as a double layer Tubigrip. Post-Debridement Measurements and Additional Note: Post-Debridement Measurements/Treatment - Nurse 1 - General Ulcer Assessment Start: 11/02/24 10:11 Freq: Status: Active Protocol: CASSIE Activity Type Activity Date Activity User E-sign Co-sign Detail Recorded Client Recorded Date Recorded By Document 11/08/24 09:36 KW [id number] 11/08/24 09:37 11/08/24 09:36 - Today's Visit Information Type of service Follow-up Visit (Physician/WELL CONTROL INSTRUCTOR ) Arrival Mode Ambulatory Patient Identification Verified (Name & Yes ) Height and Weight Body Mass Index (BMI) 48.2 BMI Classification Obese Vital Signs Pulse Rate (60-100) 86 Pulse Location Monitor Respiratory Rate (12-18) 16 Respiratory rate source Observation Oxygen Delivery Method Room Air Blood Pressure (90/60-120/80) 152/90 H Blood Pressure Mean (mm Hg) 110 Source Monitor Position Semi-Fowlers Blood Pressure Location Left Arm History Since Last Visit- (Skip if this is Patient's initial visit) Have you changed medications since your No last visit? Any new allergies or adverse reactions No Had a fall/change in ADL's that may No increase risk of falls Signs or symptoms of abuse and/or No neglect since last visit Have you been in the hospital since your No last visit? Has dressing in place as prescribed Yes Has compression in place as prescribed N/A Has offloadiing in place as prescribed N/A Experienced any changes in pain level or No management Left Footwear Regular Shoe Right Footwear Regular Shoe Pain Scale: 0-10 Numeric Is Patient Pain Free? Yes - Nurse 1 - General Ulcer Measurement Start: 11/02/24 10:11 Freq: Status: Active Protocol: Activity Type Activity Date Activity User E-sign Co-sign Detail Recorded Client Recorded Date Recorded By Document 11/08/24 09:36 KW [id number] 11/08/24 09:37 11/08/24 09:36 Wound Center Nurse 1 #5 RT 4TH TOE AMP SITE -Current Size (cm) - Length 0.2 -Current Size (cm) - Width 0.1 -Current Size (cm) - Depth 0.1 -Total Square Cm 0.02 -Exudate Amt None Present -Wound Margin Distinct, Outline Attached -Granulation Amt Large (67-100%) -Granulation Quality [place] -Texture (Bev-wound Skin Appearance) Assessed -Moisture (Bev-wound Skin Appearance) Maceration -Color (Bev-wound Skin Appearance) Assessed -Temperature (Bev-wound Skin No Abnormality Appearance) (Pt Warm) -Tenderness on Palpation (Bev-wound No Skin Appearance) -Ulcer Cleansing Rinsed/ Irrigated with Saline -Foul Odor after Cleansing No -Anesthetic Used 5% Lidocaine Gel - Nurse 2 - General Ulcer CM Notes Start: 11/02/24 10:11 Freq: Status: Active Protocol: Activity Type Activity Date Activity User E-sign Co-sign Detail Recorded Client Recorded Date Recorded By Document 11/08/24 09:50 HELIO [id number] 11/08/24 09:57 HELIO 11/08/24 09:50 Wound Center Nurse 2 -Time 09:55 -Correct Patient Yes -Correct Side, Site, Position Yes -Correct Procedure Yes -Procedure Performed Yes -Type of Procedure Debridement -Clinical Debridement Subcutaneous -Tissue Removed Subcutaneous -Post Debridement (cm) - Length 1 -Post Debridement (cm) - Width 0.2 -Post Debridement (cm) - Depth 0.2 -Total Square (Post) (cm) 0.2 -Area of Debridement (cm) - Length 1 -Area of Debridement (cm) - Width 0.2 -Total Square (Area) (cm) 0.2 -Tunneling No -Undermining/Tunneling No -Circular Undermining No -Wound/Ulcer Outcome Not Healed -Ulcer Cleansing Rinsed/ Irrigated with Saline -Foul Odor after Cleansing No -Bioengineered Tissue Yes -Type of Bioengineered Tissue Epifix -Expiration Date 01/02/29 -Product Lot Number [id number] -Percent Used 100 -Lot number of Saline Used [id number] -Bleeding Controlled with Pressure -Treatment Response Procedure Tolerated Well -Offloading Yes -Type of Offloading Surgical Shoe -Debridement - Subq, 1st 20sq cm No -Apply Skin Sub - 1st 25 sq cm - Feet 1 -Epifix Application 1-4 (per sq cm) 4 Pain Scale: 0-10 Numeric Is Patient Pain Free? Yes - Nurse 3 - General Ulcer D/C NN Start: 11/02/24 10:11 Freq: Status: Active Protocol: Activity Type Activity Date Activity User E-sign Co-sign Detail Recorded Client Recorded Date Recorded By Document 11/08/24 10:09 ME [id number] 11/08/24 10:11 ME 11/08/24 10:09 Wound Care Center Nurse 3 #5 RT 4TH TOE AMP SITE -Primary Dressing Covered/Secured with Dry Gauze,Dry Gauze & Roll Gauze,Secured with Tape RLE -Compression Wrap [place] Wrap -Stockings No Pain Scale: 0-10 Numeric Is Patient Pain Free? Yes WC - Visit Discharge Discharge Condition Stable Ambulatory Status Ambulatory Transportation Private Auto Medication Reconcilliation completed & No provided to patient/care provider Clinical Summary of Care Provided Yes Assessment/Plan Assessment/Plan (1) Type 2 diabetes mellitus with foot ulcer: CODE(S): E11.621 - Type 2 diabetes mellitus with foot ulcer; L97.509 - Non-pressure chronic ulcer of other part of unspecified foot with unspecified severity QUALIFIERS: Diabetes mellitus terminal make up operator insulin use: with shelter use Qualified Code(s): E11.621 - Type 2 diabetes mellitus with foot ulcer; L97.509 - Non-pressure chronic ulcer of other part of unspecified foot with unspecified severity; Z79.4 - terminal gauger supervisor (current) use of insulin PLAN: Patient was examined and evaluated. All findings were discussed with the patient. All questions were answered to the patient's satisfaction. Excisional debridement down to and including subcutaneous tissue of the right foot full-thickness wound with a number 5 mm dermal curette without incident. Predebridement measurement was 0.6 x 0.2 x 0.1 cm. Postdebridement measurement is 1.0 x 0.2 x 0.2 cm. Culture was taken out of prophylaxis and drainage to the full-thickness wound. There is no concern for infection. The patient will not be placed on antibiotic at this time. I will get her antibiotic treatment as needed based on return of culture and sensitivity. EpiFix 18 mm disc cm was applied to the right full-thickness ulceration with 100% use. Ninth application. The graft site was free and clear of any infection. The wound/skin graft substitute was dressed with nonadherent bandage secured in place with Steri-Strips followed by bolster dressing as well as a double layer Tubigrip. Patient will continue his HBO dives as tolerated. Educated patient continue strict blood sugar control. Follow-up at the wound care center with Dr. Jiang in 1 week. 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
[2024-11-09 08:47] LABS: Bedside Glucose 174 mg/dL (74-106)
[2024-11-09 10:54] VITALS: BP 165/96; BP 187/89; PULSE 77; PULSE 89; RESP 15; RESP 16; TEMP 35.9; TEMP 36.3
--- NOTE | 2024-11-09 11:34 | HBO.PN.PCM_ITS ---
History of Present Illness Date of Service: 11/09/24 Chief Complaint: HBO for Diabetic Foot Ulcer with Osteomyelitis History of Wound: Mr. Ruelas is a very pleasant 39-year-old male with diabetes coming wound care center today for evaluation for HBO therapy. He started with a blister on his foot after moving about 1.5 months ago. 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 Hood, spring intern for partial ray amputation to the fourth metatarsal right foot. His operative cultures were positive for proteus, MRSE, MS-CoNS, and strep which he was treated with vanc/unasyn then discharged home on Linezolid and Augmentin (he was seen inpatient by ID). He developed a full-thickness wound post op. He then was admitted to [facility] for CHF and lung exacerbations. He was discharged and referred to the wound care center by his [facility] doctor. Patient is a diabetic and has had blood sugars around 160 to 170 mg/dL. He is now seeing Dr. Jiang at the wound center for management of his right foot ulcer. He has history of foot ulcers on left foot/great toe, diabetic polyneuropathy, HTN, hyperlipidemia, GERD, Gastroparesis, obesity and CHF. With his most recent hospitalization at [facility], he had a cardiac echo with EF 55-60%. A CXRY that showed Borderline cardiomegaly with interstitial and alveolar haziness bilaterally, could represent mild pulmonary venous congestion. Progress of Wound: This is his 14th session of hyperbaric oxygen treatment. Tolerance: Hyperbaric oxygen therapy was administered as per the facility's protocol. 100% oxygen at 2 TOYIN for 90 minutes without air breaks. Hyperbaric treatment was tolerated without any complications or concerns. He was discharged in stable condition. Pre and post blood glucose readings as documented. Objective Data Objective Data Vital Signs: Vital Signs Temp Pulse Resp BP O2 Del Method 97.3 F L 89 16 165/96 H Room Air 11/09/24 10:54 11/09/24 10:54 11/09/24 10:54 11/09/24 10:54 11/08/24 09:36 Oxygen Delivery Method Room Air Weight: 366 lb Body Mass Index (BMI) 48.2 Lab / Micro Data Labs: Laboratory Results - last 24 hr 11/09/24 08:29: POC Glucose 174 H Micro: Microbiology 11/08/24 11:06 Wound Abcess - Right Foot Gram Stain - Final Exam Physical Exam Const alert, oriented x3 and no apparent distress General Appearance: cooperative, comfortable and well kempt HEENT normocephalic, head/scalp atraumatic and hearing grossly normal bilaterally Tympanic Membrane: TM's normal bilaterally Eyes EOMs intact bilaterally Neck full ROM and supple Resp normal respiratory effort and no use of accessory muscles Neuro oriented x3, CN's II-XII intact bilaterally, moves all extremities and no focal motor deficits Psych mental status grossly normal, thought process normal, cooperative and affect normal Nursing Assessment and Debridement Post-Debridement Measurements and Additional Note: Post-Debridement Measurements/Treatment WC - Nurse 1 - General Ulcer Assessment Start: 11/02/24 10:11 Freq: Status: Active Protocol: CASSIE Activity Type Activity Date Activity User E-sign Co-sign Detail Recorded Client Recorded Date Recorded By Document 11/08/24 09:36 [id number] 11/08/24 09:37 11/08/24 09:36 WC - Today's Visit Information Type of service Follow-up Visit (Physician/EPIC AMBULATORY ANALYSTS ) Arrival Mode Ambulatory Patient Identification Verified (Name & Yes ) Height and Weight Body Mass Index (BMI) 48.2 BMI Classification Obese Vital Signs Pulse Rate (60-100) 86 Pulse Location Monitor Respiratory Rate (12-18) 16 Respiratory rate source Observation Oxygen Delivery Method Room Air Blood Pressure (90/60-120/80) 152/90 H Blood Pressure Mean (mm Hg) 110 Source Monitor Position Semi-Fowlers Blood Pressure Location Left Arm History Since Last Visit- (Skip if this is Patient's initial visit) Have you changed medications since your No last visit? Any new allergies or adverse reactions No Had a fall/change in ADL's that may No increase risk of falls Signs or symptoms of abuse and/or No neglect since last visit Have you been in the hospital since your No last visit? Has dressing in place as prescribed Yes Has compression in place as prescribed N/A Has offloadiing in place as prescribed N/A Experienced any changes in pain level or No management Left Footwear Regular Shoe Right Footwear Regular Shoe Pain Scale: 0-10 Numeric Is Patient Pain Free? Yes - Nurse 1 - General Ulcer Measurement Start: 11/02/24 10:11 Freq: Status: Active Protocol: Activity Type Activity Date Activity User E-sign Co-sign Detail Recorded Client Recorded Date Recorded By Document 11/08/24 09:36 KW [id number] 11/08/24 09:37 11/08/24 09:36 Wound Center Nurse 1 #5 RT 4TH TOE AMP SITE -Current Size (cm) - Length 0.2 -Current Size (cm) - Width 0.1 -Current Size (cm) - Depth 0.1 -Total Square Cm 0.02 -Exudate Amt None Present -Wound Margin Distinct, Outline Attached -Granulation Amt Large (67-100%) -Granulation Quality [place] -Texture (Bev-wound Skin Appearance) Assessed -Moisture (Bev-wound Skin Appearance) Maceration -Color (Bev-wound Skin Appearance) Assessed -Temperature (Bev-wound Skin No Abnormality Appearance) (Pt Warm) -Tenderness on Palpation (Bev-wound No Skin Appearance) -Ulcer Cleansing Rinsed/ Irrigated with Saline -Foul Odor after Cleansing No -Anesthetic Used 5% Lidocaine Gel WC - Nurse 2 - General Ulcer CM Notes Start: 11/02/24 10:11 Freq: Status: Active Protocol: Activity Type Activity Date Activity User E-sign Co-sign Detail Recorded Client Recorded Date Recorded By Document 11/08/24 09:50 JF [id number] 11/08/24 09:57 11/08/24 09:50 Wound Center Nurse 2 -Time 09:55 -Correct Patient Yes -Correct Side, Site, Position Yes -Correct Procedure Yes -Procedure Performed Yes -Type of Procedure Debridement -Clinical Debridement Subcutaneous -Tissue Removed Subcutaneous -Post Debridement (cm) - Length 1 -Post Debridement (cm) - Width 0.2 -Post Debridement (cm) - Depth 0.2 -Total Square (Post) (cm) 0.2 -Area of Debridement (cm) - Length 1 -Area of Debridement (cm) - Width 0.2 -Total Square (Area) (cm) 0.2 -Tunneling No -Undermining/Tunneling No -Circular Undermining No -Wound/Ulcer Outcome Not Healed -Ulcer Cleansing Rinsed/ Irrigated with Saline -Foul Odor after Cleansing No -Bioengineered Tissue Yes -Type of Bioengineered Tissue Epifix -Expiration Date 01/02/29 -Product Lot Number [id number] -Percent Used 100 -Lot number of Saline Used [id number] -Bleeding Controlled with Pressure -Treatment Response Procedure Tolerated Well -Offloading Yes -Type of Offloading Surgical Shoe -Debridement - Subq, 1st 20sq cm No -Apply Skin Sub - 1st 25 sq cm - Feet 1 -Epifix Application 1-4 (per sq cm) 4 Pain Scale: 0-10 Numeric Is Patient Pain Free? Yes - Nurse 3 - General Ulcer D/C NN Start: 11/02/24 10:11 Freq: Status: Active Protocol: Activity Type Activity Date Activity User E-sign Co-sign Detail Recorded Client Recorded Date Recorded By Document 11/08/24 10:09 WV [id number] 11/08/24 10:11 WV 11/08/24 10:09 Wound Care Center Nurse 3 #5 RT 4TH TOE AMP SITE -Primary Dressing Covered/Secured with Dry Gauze,Dry Gauze & Roll Gauze,Secured with Tape RLE -Compression Wrap [place] Wrap -Stockings No Pain Scale: 0-10 Numeric Is Patient Pain Free? Yes - Visit Discharge Discharge Condition Stable Ambulatory Status Ambulatory Transportation Private Auto Medication Reconcilliation completed & No provided to patient/care provider Clinical Summary of Care Provided Yes Charges/Coding Wound Center CF Procedures HBO Supervision: [id number] Hyperbaric Oxygen; supervision Assessment/Plan Assessment/Plan (1) Type 2 diabetes mellitus with foot ulcer: CODE(S): E11.621 - Type 2 diabetes mellitus with foot ulcer; L97.509 - Non-pressure chronic ulcer of other part of unspecified foot with unspecified severity QUALIFIERS: Diabetes mellitus intermediate frame tender insulin use: with care home use Qualified Code(s): E11.621 - Type 2 diabetes mellitus with foot ulcer; L97.509 - Non-pressure chronic ulcer of other part of unspecified foot with unspecified severity; Z79.4 - custodial (current) use of insulin (2) Diabetic foot ulcer with osteomyelitis: CODE(S): E11.621 - Type 2 diabetes mellitus with foot ulcer; E11.69 - Type 2 diabetes mellitus with other specified complication; L97.509 - Non-pressure chronic ulcer of other part of unspecified foot with unspecified severity; M86.9 - Osteomyelitis, unspecified (3) Non-pressure chronic ulcer of other part of right foot with muscle in volvement without evidence of necrosis: CODE(S): L97.515 - 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 This note was generated with [employer] dictation software. It may contain incorrect words, spelling, and punctuation that were not noted in checking the note before signing.
[2024-11-09 11:36] LABS: Bedside Glucose 158 mg/dL (74-106)
[2024-11-10 08:42] LABS: Bedside Glucose 226 mg/dL (74-106)
[2024-11-10 09:01] VITALS: BP 176/89; BP 177/87; PULSE 67; PULSE 74; RESP 14; RESP 15; TEMP 35.7; TEMP 36.5
[2024-11-10 10:56] LABS: Bedside Glucose 166 mg/dL (74-106)
--- NOTE | 2024-11-10 15:29 | HBO.PN.PCM_ITS ---
History of Present Illness Date of Service: 11/10/24 Chief Complaint: HBO for Diabetic Foot Ulcer with Osteomyelitis History of Wound: Mr. Ruelas is a very pleasant 39-year-old male with diabetes coming wound care center today for evaluation for HBO therapy. He started with a blister on his foot after moving about 1.5 months ago. 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 Hood, case filler for partial ray amputation to the fourth metatarsal right foot. His operative cultures were positive for proteus, MRSE, MS-CoNS, and strep which he was treated with vanc/unasyn then discharged home on Linezolid and Augmentin (he was seen inpatient by ID). He developed a full-thickness wound post op. He then was admitted to [facility] for CHF and lung exacerbations. He was discharged and referred to the wound care center by his [facility] doctor. Patient is a diabetic and has had blood sugars around 160 to 170 mg/dL. He is now seeing Dr. Jiang at the wound center for management of his right foot ulcer. He has history of foot ulcers on left foot/great toe, diabetic polyneuropathy, HTN, hyperlipidemia, GERD, Gastroparesis, obesity and CHF. With his most recent hospitalization at [facility], he had a cardiac echo with EF 55-60%. A CXRY that showed Borderline cardiomegaly with interstitial and alveolar haziness bilaterally, could represent mild pulmonary venous congestion. Progress of Wound: This is his 15th session of hyperbaric oxygen treatment. Tolerance: Hyperbaric oxygen therapy was administered as per the facility's protocol. 100% oxygen at 2 TOYIN for 90 minutes without air breaks. Hyperbaric treatment was tolerated without any complications or concerns. He was discharged in stable condition. Pre and post blood glucose readings as documented. Objective Data Objective Data Vital Signs: Vital Signs Temp Pulse Resp BP O2 Del Method 97.7 F L 67 15 177/87 H Room Air 11/10/24 09:01 11/10/24 09:01 11/10/24 09:01 11/10/24 09:01 11/08/24 09:36 Oxygen Delivery Method Room Air Weight: 166.015 kg Body Mass Index (BMI) 48.2 Lab / Micro Data Attestation: I reviewed the patient's lab results. Labs: Laboratory Results - last 24 hr 11/10/24 08:24: POC Glucose 226 H 11/10/24 10:36: POC Glucose 166 H Micro: Microbiology 11/08/24 11:06 Wound Abcess - Right Foot Gram Stain - Final 11/08/24 11:06 Wound Abcess - Right Foot Wound Culture - Final Staphylococcus epidermidis 11/08/24 11:06 Wound Abcess - Right Foot Anaerobic Culture - Preliminary Exam Physical Exam Const alert, oriented x3 and no apparent distress General Appearance: cooperative, comfortable and well kempt HEENT normocephalic, head/scalp atraumatic and hearing grossly normal bilaterally Eyes EOMs intact bilaterally Neck full ROM and supple Resp normal respiratory effort and no use of accessory muscles Neuro oriented x3, CN's II-XII intact bilaterally, moves all extremities and no focal motor deficits Psych mental status grossly normal, thought process normal, cooperative and affect normal Nursing Assessment and Debridement Post-Debridement Measurements and Additional Note: Post-Debridement Measurements/Treatment WC - Nurse 1 - General Ulcer Assessment Start: 11/02/24 10:11 Freq: Status: Active Protocol: CASSIE Activity Type Activity Date Activity User E-sign Co-sign Detail Recorded Client Recorded Date Recorded By Document 11/08/24 09:36 [id number] 11/08/24 09:37 11/08/24 09:36 - Today's Visit Information Type of service 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 Any new allergies or adverse reactions No Had a fall/change in ADL's that may No increase risk of falls Signs or symptoms of abuse and/or No neglect since last visit Have you been in the hospital since your No last visit? Has dressing in place as prescribed Yes Has compression in place as prescribed N/A Has offloadiing in place as prescribed N/A Experienced any changes in pain level or No management Left Footwear Regular Shoe Right Footwear Regular Shoe Pain Scale: 0-10 Numeric Is Patient Pain Free? Yes - Nurse 1 - General Ulcer Measurement Start: 11/02/24 10:11 Freq: Status: Active Protocol: Activity Type Activity Date Activity User E-sign Co-sign Detail Recorded Client Recorded Date Recorded By Document 11/08/24 09:36 THAIS [id number] 11/08/24 09:37 THAIS 11/08/24 09:36 Wound Center Nurse 1 #5 RT 4TH TOE AMP SITE -Current Size (cm) - Length 0.2 -Current Size (cm) - Width 0.1 -Current Size (cm) - Depth 0.1 -Total Square Cm 0.02 -Exudate Amt None Present -Wound Margin Distinct, Outline Attached -Granulation Amt Large (67-100%) -Granulation Quality [place] -Texture (Bev-wound Skin Appearance) Assessed -Moisture (Bev-wound Skin Appearance) Maceration -Color (Bev-wound Skin Appearance) Assessed -Temperature (Bev-wound Skin No Abnormality Appearance) (Pt Warm) -Tenderness on Palpation (Bev-wound No Skin Appearance) -Ulcer Cleansing Rinsed/ Irrigated with Saline -Foul Odor after Cleansing No -Anesthetic Used 5% Lidocaine Gel - Nurse 2 - General Ulcer CM Notes Start: 11/02/24 10:11 Freq: Status: Active Protocol: Activity Type Activity Date Activity User E-sign Co-sign Detail Recorded Client Recorded Date Recorded By Document 11/08/24 09:50 HELIO [id number] 11/08/24 09:57 HELIO 11/08/24 09:50 Wound Center Nurse 2 -Time 09:55 -Correct Patient Yes -Correct Side, Site, Position Yes -Correct Procedure Yes -Procedure Performed Yes -Type of Procedure Debridement -Clinical Debridement Subcutaneous -Tissue Removed Subcutaneous -Post Debridement (cm) - Length 1 -Post Debridement (cm) - Width 0.2 -Post Debridement (cm) - Depth 0.2 -Total Square (Post) (cm) 0.2 -Area of Debridement (cm) - Length 1 -Area of Debridement (cm) - Width 0.2 -Total Square (Area) (cm) 0.2 -Tunneling No -Undermining/Tunneling No -Circular Undermining No -Wound/Ulcer Outcome Not Healed -Ulcer Cleansing Rinsed/ Irrigated with Saline -Foul Odor after Cleansing No -Bioengineered Tissue Yes -Type of Bioengineered Tissue Epifix -Expiration Date 01/02/29 -Product Lot Number [id number] -Percent Used 100 -Lot number of Saline Used [id number] -Bleeding Controlled with Pressure -Treatment Response Procedure Tolerated Well -Offloading Yes -Type of Offloading Surgical Shoe -Debridement - Subq, 1st 20sq cm No -Apply Skin Sub - 1st 25 sq cm - Feet 1 -Epifix Application 1-4 (per sq cm) 4 Pain Scale: 0-10 Numeric Is Patient Pain Free? Yes - Nurse 3 - General Ulcer D/C NN Start: 11/02/24 10:11 Freq: Status: Active Protocol: Activity Type Activity Date Activity User E-sign Co-sign Detail Recorded Client Recorded Date Recorded By Document 11/08/24 10:09 [email or web address] [id number] 11/08/24 10:11 [place] 11/08/24 10:09 Wound Care Center Nurse 3 #5 RT 4TH TOE AMP SITE -Primary Dressing Covered/Secured with Dry Gauze,Dry Gauze & Roll Gauze,Secured with Tape RLE -Compression Wrap [place] Wrap -Stockings No Pain Scale: 0-10 Numeric Is Patient Pain Free? Yes - Visit Discharge Discharge Condition Stable Ambulatory Status Ambulatory Transportation Private Auto Medication Reconcilliation completed & No provided to patient/care provider Clinical Summary of Care Provided Yes Assessment/Plan Assessment/Plan (1) Type 2 diabetes mellitus with foot ulcer: CODE(S): E11.621 - Type 2 diabetes mellitus with foot ulcer; L97.509 - Non-pressure chronic ulcer of other part of unspecified foot with unspecified severity QUALIFIERS: Diabetes mellitus nursing home insulin use: with oil heaterman use Qualified Code(s): E11.621 - Type 2 diabetes mellitus with foot ulcer; L97.509 - Non-pressure chronic ulcer of other part of unspecified foot with unspecified severity; Z79.4 - longterm (current) use of insulin (2) Diabetic foot ulcer with osteomyelitis: CODE(S): E11.621 - Type 2 diabetes mellitus with foot ulcer; E11.69 - Type 2 diabetes mellitus with other specified complication; L97.509 - Non-pressure chronic ulcer of other part of unspecified foot with unspecified severity; M86.9 - Osteomyelitis, unspecified (3) 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 This note was generated with [employer] dictation software. It may contain incorrect words, spelling, and punctuation that were not noted in checking the note before signing.
--- NOTE | 2024-11-13 09:13 | WC ---
Pt called in and stated his fasting blood sugar was well over 300 this am. He has exceeded the limit for HBO treatment, d/t sugar level and short availability of pt treatment was canceled today.
--- NOTE | 2024-11-14 13:33 | WC ---
Pt not able to dive today d/t b/s [employer] policy. 1st attempt 100/2nd attempt 121
--- NOTE | 2024-11-14 13:36 | WC ---
Pt unable to complete HBOT today d/t b/s being below policy guidelines. 1st attempt 100/2nd attempt 121.
[2024-11-14 16:30] LABS: Bedside Glucose 100 mg/dL (74-106)
[2024-11-14 16:30] LABS: Bedside Glucose 121 mg/dL (74-106)
[2024-11-15 08:48] LABS: Bedside Glucose 178 mg/dL (74-106)
[2024-11-15 10:38] VITALS: BP 165/97; BP 192/90; PULSE 74; PULSE 75; RESP 14; RESP 15; TEMP 35.9; TEMP 36.6
[2024-11-15 10:53] LABS: Bedside Glucose 118 mg/dL (74-106)
[2024-11-15 11:03] VITALS: BMI 48.2
--- NOTE | 2024-11-15 12:19 | HBO.PN.PCM_ITS ---
History of Present Illness Date of Service: 11/15/24 Chief Complaint: HBO for Diabetic Foot Ulcer with Osteomyelitis History of Wound: Mr. Ruelas is a very pleasant 39-year-old male with diabetes coming wound care center today for evaluation for HBO therapy. He started with a blister on his foot after moving about 1.5 months ago. 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 His operative cultures were positive for proteus, MRSE, MS-CoNS, and strep which he was treated with vanc/unasyn then discharged home on Linezolid and Augmentin (he was seen inpatient by ID). He developed a full-thickness wound post op. He then was admitted to [facility] for CHF and lung exacerbations. He was discharged and referred to the wound care center by his [facility] doctor. Patient is a diabetic and has had blood sugars around 160 to 170 mg/dL. He is now seeing Dr. Jiang at the wound center for management of his right foot ulcer. He has history of foot ulcers on left foot/great toe, diabetic polyneuropathy, HTN, hyperlipidemia, GERD, Gastroparesis, obesity and CHF. With his most recent hospitalization at [facility], he had a cardiac echo with EF 55-60%. A CXRY that showed Borderline cardiomegaly with interstitial and alveolar haziness bilaterally, could represent mild pulmonary venous congestion. Progress of Wound: This is his 16th session of hyperbaric oxygen treatment. Tolerance: Hyperbaric oxygen therapy was administered as per the facility's protocol. 100% oxygen at 2 TOYIN for 90 minutes without air breaks. Hyperbaric treatment was tolerated without any complications or concerns. He was discharged in stable condition. Pre and post blood glucose readings as documented. Subjective Subjective Patient has no concerns Objective Data Objective Data Patient was admitted and discharging stable condition tolerated treatments well Vital Signs: Vital Signs Temp Pulse Resp BP O2 Del Method 96.7 F L 75 14 192/90 H Room Air 11/15/24 10:38 11/15/24 10:38 11/15/24 10:38 11/15/24 10:38 11/08/24 09:36 Oxygen Delivery Method Room Air Weight: 366 lb Body Mass Index (BMI) 48.2 Lab / Micro Data Labs: Laboratory Results - last 24 hr 11/14/24 12:34: POC Glucose 100 11/14/24 12:47: POC Glucose 121 H 11/15/24 08:30: POC Glucose 178 H 11/15/24 10:29: POC Glucose 118 H Micro: Microbiology 11/08/24 11:06 Wound Abcess - Right Foot Gram Stain - Final 11/08/24 11:06 Wound Abcess - Right Foot Wound Culture - Final Staphylococcus epidermidis 11/08/24 11:06 Wound Abcess - Right Foot Anaerobic Culture - Final No anaerobic bacteria isolated. Exam Physical Exam Const alert, oriented x3 and no apparent distress General Appearance: cooperative HEENT normocephalic and TM's normal bilaterally Resp normal respiratory effort, no use of accessory muscles and clear to auscultation bilaterally Effort and Inspection: able to speak in complete sentences Cardio regular rate and regular rhythm Psych affect normal Appearance: grossly normal Nursing Assessment and Debridement Post-Debridement Measurements and Additional Note: Post-Debridement Measurements/Treatment WC - Nurse 1 - General Ulcer Assessment Start: 11/02/24 10:11 Freq: Status: Active Protocol: [email or web address] Activity Type Activity Date Activity User E-sign Co-sign Detail Recorded Client Recorded Date Recorded By Document 11/15/24 11:03 [id number] 11/15/24 11:04 11/15/24 11:03 - Today's Visit Information Type of service 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 Any new allergies or adverse reactions No Had a fall/change in ADL's that may No increase risk of falls Signs or symptoms of abuse and/or No neglect since last visit Have you been in the hospital since your Yes last visit? Has dressing in place as prescribed Yes Has compression in place as prescribed Yes Has offloadiing in place as prescribed Yes Experienced any changes in pain level or No management Pain Scale: 0-10 Numeric Is Patient Pain Free? Yes - Nurse 1 - General Ulcer Measurement Start: 11/02/24 10:11 Freq: Status: Active Protocol: Activity Type Activity Date Activity User E-sign Co-sign Detail Recorded Client Recorded Date Recorded By Document 11/15/24 11:03 [id number] 11/15/24 11:04 11/15/24 11:03 Wound Center Nurse 1 #5 RT 4TH TOE AMP SITE -Combined with other wound No -Current Size (cm) - Length 0.1 -Current Size (cm) - Width 0.1 -Current Size (cm) - Depth 0.1 -Total Square Cm 0.01 -Date of Last Picture (Recall this 11/15/24 field) -Photo Taken Yes -Epithelialization Large 67-100% -Tunneling No -Undermining/Tunneling No -Circular Undermining No -Exudate Amt None Present -Ulcer Cleansing Soap and Water -Wound Comment(s) area looks healed but there is an area that looks like dried drainage WC - Nurse 2 - General Ulcer CM Notes Start: 11/02/24 10:11 Freq: Status: Active Protocol: Activity Type Activity Date Activity User E-sign Co-sign Detail Recorded Client Recorded Date Recorded By Document 11/15/24 11:11 [id number] 11/15/24 11:13 11/15/24 11:11 Wound Center Nurse 2 -Correct Patient Yes -Correct Side, Site, Position No -Correct Procedure No -Procedure Performed No -Post Debridement (cm) - Length 0.1 -Post Debridement (cm) - Width 0.1 -Post Debridement (cm) - Depth 0.1 -Total Square (Post) (cm) 0.01 -Area of Debridement (cm) - Length 0.1 -Area of Debridement (cm) - Width 0.1 -Total Square (Area) (cm) 0.01 -Debridement - Subq, 1st 20sq cm No Pain Scale: 0-10 Numeric Is Patient Pain Free? Yes - Nurse 3 - General Ulcer D/C NN Start: 11/02/24 10:11 Freq: Status: Active Protocol: Activity Type Activity Date Activity User E-sign Co-sign Detail Recorded Client Recorded Date Recorded By Document 11/15/24 11:13 [id number] 11/15/24 11:14 11/15/24 11:13 Wound Care Center Nurse 3 #5 RT 4TH TOE AMP SITE -Ulcer Cleansing Rinsed/ Irrigated with Saline -Foul Odor after Cleansing No -Primary Dressing Covered/Secured with Dry Gauze Pain Scale: 0-10 Numeric Is Patient Pain Free? Yes WC - Visit Discharge Discharge Condition Stable Ambulatory Status Ambulatory Transportation Private Auto Medication Reconcilliation completed & Yes provided to patient/care provider Clinical Summary of Care Provided Yes Assessment/Plan Assessment/Plan (1) Type 2 diabetes mellitus with foot ulcer: CODE(S): E11.621 - Type 2 diabetes mellitus with foot ulcer; L97.509 - Non-pressure chronic ulcer of other part of unspecified foot with unspecified severity QUALIFIERS: Diabetes mellitus custodial insulin use: with termite control servicer use Qualified Code(s): E11.621 - Type 2 diabetes mellitus with foot ulcer; L97.509 - Non-pressure chronic ulcer of other part of unspecified foot with unspecified severity; 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.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 of insulin (2) Diabetic foot ulcer with osteomyelitis: CODE(S): E11.621 - Type 2 diabetes mellitus with foot ulcer; E11.69 - Type 2 diabetes mellitus with other specified complication; L97.509 - Non-pressure chronic ulcer of other part of unspecified foot with unspecified severity; M86.9 - Osteomyelitis, unspecified (3) 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 This note was generated with [employer] software. It may contain incorrect words, spelling, and punctuation that were not noted in checking the note before signing.
--- NOTE | 2024-11-15 12:48 | PN.PCM_ITS ---
History of Present Illness Date of Service: 11/15/24 Chief Complaint: HBO for Diabetic Foot Ulcer with Osteomyelitis History of Wound: Mr. Ruelas is a very pleasant 39-year-old male with diabetes coming wound care center today for evaluation for HBO therapy. He started with a blister on his foot after moving about 1.5 months ago. 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 His operative cultures were positive for proteus, MRSE, MS-CoNS, and strep which he was treated with vanc/unasyn then discharged home on Linezolid and Augmentin (he was seen inpatient by ID). He developed a full-thickness wound post op. He then was admitted to [facility] for CHF and lung exacerbations. He was discharged and referred to the wound care center by his [facility] doctor. Patient is a diabetic and has had blood sugars around 160 to 170 mg/dL. He is now seeing Dr. Jiang at the wound center for management of his right foot ulcer. He has history of foot ulcers on left foot/great toe, diabetic polyneuropathy, HTN, hyperlipidemia, GERD, Gastroparesis, obesity and CHF. With his most recent hospitalization at [facility], he had a cardiac echo with EF 55-60%. A CXRY that showed Borderline cardiomegaly with interstitial and alveolar haziness bilaterally, could represent mild pulmonary venous congestion. Progress of Wound: Stable healing wound right foot Subjective Subjective Mr. Ruelas is a 39-year-old diabetic male presenting the wound care center today follow-up evaluation of full-thickness wound to the right foot at the level of the fourth ray resection. Blood sugar has been well-controlled. He has left his dressing clean dry and intact and doing HBO dives as prescribed. Grateful for his care. He admits that his wound is improving. Denies trauma. Denies constitutional symptoms. No other pedal complaints at this time. Objective Data Objective Data Vital Signs: Vital Signs Temp Pulse Resp BP O2 Del Method 96.7 F L 75 14 192/90 H Room Air 11/15/24 10:38 11/15/24 10:38 11/15/24 10:38 11/15/24 10:38 11/08/24 09:36 Oxygen Delivery Method Room Air Weight: 166.015 kg Body Mass Index (BMI) 48.2 Lab / Micro Data Labs: Laboratory Results - last 24 hr 11/14/24 12:34: POC Glucose 100 11/14/24 12:47: POC Glucose 121 H 11/15/24 08:30: POC Glucose 178 H 11/15/24 10:29: POC Glucose 118 H Micro: Microbiology 11/08/24 11:06 Wound Abcess - Right Foot Gram Stain - Final 11/08/24 11:06 Wound Abcess - Right Foot Wound Culture - Final Staphylococcus epidermidis 11/08/24 11:06 Wound Abcess - Right Foot Anaerobic Culture - Final No anaerobic bacteria isolated. Physical Exam Narrative Vascular: DP and PT pulses are palpable to the right lower extremity. CFT is brisk. No erythema to the right foot. +1 pitting edema to the right lower extremity. Neurological: Light touch intact. Protective station is diminished. Patient does respond to painful stimuli. Dermatological: Full-thickness wound at the level of the status post fourth ray amputation to the right foot measuring 0.1 x 0.1 x 0.1 cm. No probe to bone. No malodor. No purulent drainage noted. Musculoskeletal: Muscle strength is 5 out of 5 in all quadrants to the right lower extremity. No pain on palpation of the full-thickness wound. No pain with calf pressure. Debridement Note Debridement Note Post-Debridement Measurements and Additional Note: Post-Debridement Measurements/Treatment WC - Nurse 1 - General Ulcer Assessment Start: 11/02/24 10:11 Freq: Status: Active Protocol: LARISSA.LOWEXT Activity Type Activity Date Activity User E-sign Co-sign Detail Recorded Client Recorded Date Recorded By Document 11/08/24 09:36 [id number] 11/08/24 09:37 KW Document 11/15/24 11:03 [id number] 11/15/24 11:04 11/08/24 11/15/24 09:36 11:03 - Today's Visit Information Type of service Follow-up Visit Follow-up Visit (Physician/INSTRUCTOR TRAFFIC SAFETY (Physician/INSTRUCTOR TRAFFIC SAFETY ) ) Arrival Mode Ambulatory Ambulatory Transfer Assistance None Patient Identification Verified (Name & Yes Yes ) Patient Requires Transmission-Based No Precautions Height and Weight Body Mass Index (BMI) 48.2 48.2 BMI Classification Obese Obese Vital Signs Pulse Rate (60-100) 86 Pulse Location Monitor Respiratory Rate (12-18) 16 Respiratory rate source Observation Oxygen Delivery Method Room Air Blood Pressure (90/60-120/80) 152/90 H Blood Pressure Mean (mm Hg) 110 Source Monitor Position Semi-Fowlers Blood Pressure Location Left Arm Comment vitals taken in HBO History Since Last Visit- (Skip if this is Patient's initial visit) Have you changed medications since your No No last visit? Any new allergies or adverse reactions No No Had a fall/change in ADL's that may No No increase risk of falls Signs or symptoms of abuse and/or No No neglect since last visit Have you been in the hospital since your No Yes last visit? Has dressing in place as prescribed Yes Yes Has compression in place as prescribed N/A Yes Has offloadiing in place as prescribed N/A Yes Experienced any changes in pain level or No No management Left Footwear Regular Shoe Right Footwear Regular Shoe Pain Scale: 0-10 Numeric Is Patient Pain Free? Yes Yes WC - Nurse 1 - General Ulcer Measurement Start: 11/02/24 10:11 Freq: Status: Active Protocol: Activity Type Activity Date Activity User E-sign Co-sign Detail Recorded Client Recorded Date Recorded By Document 11/08/24 09:36 KW [id number] 11/08/24 09:37 KW Document 11/15/24 11:03 [id number] 11/15/24 11:04 11/08/24 11/15/24 09:36 11:03 Wound Center Nurse 1 #5 RT 4TH TOE AMP SITE -Combined with other wound No -Current Size (cm) - Length 0.2 0.1 -Current Size (cm) - Width 0.1 0.1 -Current Size (cm) - Depth 0.1 0.1 -Total Square Cm 0.02 0.01 -Date of Last Picture (Recall this 11/15/24 field) -Photo Taken Yes -Epithelialization Large 67-100% -Tunneling No -Undermining/Tunneling No -Circular Undermining No -Exudate Amt None Present None Present -Wound Margin Distinct, Outline Attached -Granulation Amt Large (67-100%) -Granulation Quality [place] -Texture (Bev-wound Skin Appearance) Assessed -Moisture (Bev-wound Skin Appearance) Maceration -Color (Bev-wound Skin Appearance) Assessed -Temperature (Bev-wound Skin No Abnormality Appearance) (Pt Warm) -Tenderness on Palpation (Bev-wound No Skin Appearance) -Ulcer Cleansing Rinsed/ Soap and Water Irrigated with Saline -Foul Odor after Cleansing No -Anesthetic Used 5% Lidocaine Gel -Wound Comment(s) area looks healed but there is an area that looks like dried drainage LARISSA - Nurse 2 - General Ulcer CM Notes Start: 11/02/24 10:11 Freq: Status: Active Protocol: Activity Type Activity Date Activity User E-sign Co-sign Detail Recorded Client Recorded Date Recorded By Document 11/08/24 09:50 [id number] 11/08/24 09:57 Document 11/15/24 11:11 [id number] 11/15/24 11:13 11/08/24 11/15/24 09:50 11:11 Wound Center Nurse 2 #5 RT 4TH TOE AMP SITE -Time 09:55 -Correct Patient Yes Yes -Correct Side, Site, Position Yes No -Correct Procedure Yes No -Procedure Performed Yes No -Type of Procedure Debridement -Clinical Debridement Subcutaneous -Tissue Removed Subcutaneous -Post Debridement (cm) - Length 1 0.1 -Post Debridement (cm) - Width 0.2 0.1 -Post Debridement (cm) - Depth 0.2 0.1 -Total Square (Post) (cm) 0.2 0.01 -Area of Debridement (cm) - Length 1 0.1 -Area of Debridement (cm) - Width 0.2 0.1 -Total Square (Area) (cm) 0.2 0.01 -Tunneling No -Undermining/Tunneling No -Circular Undermining No -Wound/Ulcer Outcome Not Healed -Ulcer Cleansing Rinsed/ Irrigated with Saline -Foul Odor after Cleansing No -Bioengineered Tissue Yes -Type of Bioengineered Tissue Epifix -Expiration Date 01/02/29 -Product Lot Number [id number] -Percent Used 100 -Lot number of Saline Used [id number] -Bleeding Controlled with Pressure -Treatment Response Procedure Tolerated Well -Offloading Yes -Type of Offloading Surgical Shoe -Debridement - Subq, 1st 20sq cm No No -Apply Skin Sub - 1st 25 sq cm - Feet 1 -Epifix Application 1-4 (per sq cm) 4 Pain Scale: 0-10 Numeric Is Patient Pain Free? Yes Yes - Nurse 3 - General Ulcer D/C NN Start: 11/02/24 10:11 Freq: Status: Active Protocol: Activity Type Activity Date Activity User E-sign Co-sign Detail Recorded Client Recorded Date Recorded By Document 11/08/24 10:09 AK [id number] 11/08/24 10:11 AK Document 11/15/24 11:13 [id number] 11/15/24 11:14 11/08/24 11/15/24 10:09 11:13 Wound Care Center Nurse 3 #5 RT 4TH TOE AMP SITE -Ulcer Cleansing Rinsed/ Irrigated with Saline -Foul Odor after Cleansing No -Primary Dressing Covered/Secured with Dry Gauze,Dry Dry Gauze Gauze & Roll Gauze,Secured with Tape RLE -Compression Wrap [place] Wrap -Stockings No Pain Scale: 0-10 Numeric Is Patient Pain Free? Yes Yes WC - Visit Discharge Discharge Condition Stable Stable Ambulatory Status Ambulatory Ambulatory Transportation Private Auto Private Auto Medication Reconcilliation completed & No Yes provided to patient/care provider Clinical Summary of Care Provided Yes Yes Assessment/Plan Assessment/Plan (1) Type 2 diabetes mellitus with foot ulcer: CODE(S): E11.621 - Type 2 diabetes mellitus with foot ulcer; L97.509 - Non-pressure chronic ulcer of other part of unspecified foot with unspecified severity QUALIFIERS: Diabetes mellitus termite technician insulin use: with snf use Qualified Code(s): E11.621 - Type 2 diabetes mellitus with foot ulcer; L97.509 - Non-pressure chronic ulcer of other part of unspecified foot with unsp ecified severity; Z79.4 - buttermaker (current) use of insulin PLAN: Patient was examined and evaluated. All findings were discussed with the patient. All questions were answered to the patient's satisfaction. After physical examination the patient's full-thickness wound measures 0.1 x 0.1 x 0.1 cm. No debridement was done at this time. He will continue HBO throughout the week and then stop. After review of the patient's culture that shows evidence of bacterial growth, Staph epidermidis. The patient be placed on Levaquin 500 milligrams daily for 2 weeks. Patient will continue his HBO dives as tolerated. Educated patient continue strict blood sugar control. Follow-up at the wound care center with Dr. Jiang in 1 week. 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
--- NOTE | 2024-11-15 13:35 | WC ---
PHOTO 11/15/24 RIGHT FOOT
[2024-11-16 08:47] LABS: Bedside Glucose 143 mg/dL (74-106)
[2024-11-16 09:54] VITALS: BP 164/92; BP 193/83; PULSE 69; PULSE 74; RESP 14; RESP 15; TEMP 35.7; TEMP 36
[2024-11-16 11:41] LABS: Bedside Glucose 115 mg/dL (74-106)
--- NOTE | 2024-11-16 12:20 | HBO.PN.PCM_ITS ---
History of Present Illness Date of Service: 11/16/24 Chief Complaint: HBO for Diabetic Foot Ulcer with Osteomyelitis History of Wound: Mr. Ruelas is a very pleasant 39-year-old male with diabetes coming wound care center today for evaluation for HBO therapy. He started with a blister on his foot after moving about 1.5 months ago. 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 His operative cultures were positive for proteus, MRSE, MS-CoNS, and strep which he was treated with vanc/unasyn then discharged home on Linezolid and Augmentin (he was seen inpatient by ID). He developed a full-thickness wound post op. He then was admitted to [facility] for CHF and lung exacerbations. He was discharged and referred to the wound care center by his chuy meier doctor. Patient is a diabetic and has had blood sugars around 160 to 170 mg/dL. He is now seeing Dr. Jiang at the wound center for management of his right foot ulcer. He has history of foot ulcers on left foot/great toe, diabetic polyneuropathy, HTN, hyperlipidemia, GERD, Gastroparesis, obesity and CHF. With his most recent hospitalization at [facility], he had a cardiac echo with EF 55-60%. A CXRY that showed Borderline cardiomegaly with interstitial and alveolar haziness bilaterally, could represent mild pulmonary venous congestion. Progress of Wound: HBO progress: This is his 17th session of hyperbaric oxygen treatment. Tolerance: Hyperbaric oxygen therapy was administered as per the facility's protocol. 100% oxygen at 2 TOYIN for 90 minutes without air breaks. About 15 minutes to completion, hyperbaric oxygen treatment had to be terminated due to concern for hypoglycemia. Blood glucose level was at 58. Blood glucose level p rior to HBO was 148. He was monitored per facility protocol and his blood glucose levels subsequently came up to 115 prior to discharge from the facility. He was discharged in stable condition. Objective Data Objective Data Objective Data Vital Signs: Vital Signs Temp Pulse Resp BP O2 Del Method 96.8 F L 69 15 164/92 H Room Air 11/16/24 09:54 11/16/24 09:54 11/16/24 09:54 11/16/24 09:54 11/08/24 09:36 Oxygen Delivery Method Room Air Weight: 366 lb Body Mass Index (BMI) 48.2 Lab / Micro Data Labs: Laboratory Results - last 24 hr 11/16/24 08:28: POC Glucose 143 H 11/16/24 11:24: POC Glucose 115 H Micro: Microbiology 11/08/24 11:06 Wound Abcess - Right Foot Gram Stain - Final 11/08/24 11:06 Wound Abcess - Right Foot Wound Culture - Final Staphylococcus epidermidis 11/08/24 11:06 Wound Abcess - Right Foot Anaerobic Culture - Final No anaerobic bacteria isolated. Exam Physical Exam Const alert, oriented x3 and no apparent distress General Appearance: cooperative, comfortable and well kempt HEENT normocephalic, head/scalp atraumatic and hearing grossly normal bilaterally Tympanic Membrane: TM's normal bilaterally Eyes EOMs intact bilaterally Neck full ROM and supple Resp normal respiratory effort and no use of accessory muscles Neuro oriented x3, CN's II-XII intact bilaterally, moves all extremities and no focal motor deficits Psych mental status grossly normal, thought process normal, cooperative and affect normal Nursing Assessment and Debridement Post-Debridement Measurements and Additional Note: Post-Debridement Measurements/Treatment - Nurse 1 - General Ulcer Assessment Start: 11/02/24 10:11 Freq: Status: Active Protocol: CASSIE Activity Type Activity Date Activity User E-sign Co-sign Detail Recorded Client Recorded Date Recorded By Document 11/15/24 11:03 [id number] 11/15/24 11:04 11/15/24 11:03 - Today's Visit Information Type of service Follow-up Visit (Physician/CLOCKMAKER ) Arrival Mode Ambulatory Transfer Assistance None Patient Identification Verified (Name & Yes ) Patient Requires Transmission-Based No Precautions Height and Weight Body Mass Index (BMI) 48.2 BMI Classification Obese Vital Signs Comment vitals taken in HBO History Since Last Visit- (Skip if this is Patient's initial visit) Have you changed medications since your No last visit? Any new allergies or adverse reactions No Had a fall/change in ADL's that may No increase risk of falls Signs or symptoms of abuse and/or No neglect since last visit Have you been in the hospital since your Yes last visit? Has dressing in place as prescribed Yes Has compression in place as prescribed Yes Has offloadiing in place as prescribed Yes Experienced any changes in pain level or No management Pain Scale: 0-10 Numeric Is Patient Pain Free? Yes WC - Nurse 1 - General Ulcer Measurement Start: 11/02/24 10:11 Freq: Status: Active Protocol: Activity Type Activity Date Activity User E-sign Co-sign Detail Recorded Client Recorded Date Recorded By Document 11/15/24 11:03 [id number] 11/15/24 11:04 11/15/24 11:03 Wound Center Nurse 1 #5 RT 4TH TOE AMP SITE -Combined with other wound No -Current Size (cm) - Length 0.1 -Current Size (cm) - Width 0.1 -Current Size (cm) - Depth 0.1 -Total Square Cm 0.01 -Date of Last Picture (Recall this 11/15/24 field) -Photo Taken Yes -Epithelialization Large 67-100% -Tunneling No -Undermining/Tunneling No -Circular Undermining No -Exudate Amt None Present -Ulcer Cleansing Soap and Water -Wound Comment(s) area looks healed but there is an area that looks like dried drainage WC - Nurse 2 - General Ulcer CM Notes Start: 11/02/24 10:11 Freq: Status: Active Protocol: Activity Type Activity Date Activity User E-sign Co-sign Detail Recorded Client Recorded Date Recorded By Document 11/15/24 11:11 HELIO [id number] 11/15/24 11:13 11/15/24 11:11 Wound Center Nurse 2 -Correct Patient Yes -Correct Side, Site, Position No -Correct Procedure No -Procedure Performed No -Post Debridement (cm) - Length 0.1 -Post Debridement (cm) - Width 0.1 -Post Debridement (cm) - Depth 0.1 -Total Square (Post) (cm) 0.01 -Area of Debridement (cm) - Length 0.1 -Area of Debridement (cm) - Width 0.1 -Total Square (Area) (cm) 0.01 -Debridement - Subq, 1st 20sq cm No Pain Scale: 0-10 Numeric Is Patient Pain Free? Yes LARISSA - Nurse 3 - General Ulcer D/C NN Start: 11/02/24 10:11 Freq: Status: Active Protocol: Activity Type Activity Date Activity User E-sign Co-sign Detail Recorded Client Recorded Date Recorded By Document 11/15/24 11:13 HELIO [id number] 11/15/24 11:14 HELIO 11/15/24 11:13 Wound Care Center Nurse 3 #5 RT 4TH TOE AMP SITE -Ulcer Cleansing Rinsed/ Irrigated with Saline -Foul Odor after Cleansing No -Primary Dressing Covered/Secured with Dry Gauze Pain Scale: 0-10 Numeric Is Patient Pain Free? Yes WC - Visit Discharge Discharge Condition Stable Ambulatory Status Ambulatory Transportation Private Auto Medication Reconcilliation completed & Yes provided to patient/care provider Clinical Summary of Care Provided Yes Charges/Coding Wound Center CF Procedures HBO Supervision: [id number] Hyperbaric Oxygen; supervision Assessment/Plan Assessment/Plan (1) Type 2 diabetes mellitus with foot ulcer: CODE(S): E11.621 - Type 2 diabetes mellitus with foot ulcer; L97.509 - Non-pressure chronic ulcer of other part of unspecified foot with unspecified severity QUALIFIERS: Diabetes mellitus ferry terminal agent insulin use: with ferry terminal agent use Qualified Code(s): E11.621 - Type 2 diabetes mellitus with foot ulcer; L97.509 - Non-pressure chronic ulcer of other part of unspecified foot with unspecified severity; Z79.4 - terminal computer operator (current) use of insulin (2) Diabetic foot ulcer with osteomyelitis: CODE(S): E11.621 - Type 2 diabetes mellitus with foot ulcer; E11.69 - Type 2 diabetes mellitus with other specified complication; L97.509 - Non-pressure chronic ulcer of other part of unspecified foot with unspecified severity; M86.9 - Osteomyelitis, unspecified (3) 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 As above, hypoglycemic event today at the end of his session. He states that he had milk this morning which he has done before however, used a different insulin than he typically does. Has been making some dietary changes and did not eat as much yesterday. Also states that lately, he has had concerns with his blood glucose levels and has self adjusted his short acting insulin from 80-50. Has an appointment with his donor services technician next Wednesday. He was discharged from this facility in stable condition with blood glucose at 115. Dietary protein and fiber strongly recommended. Follow-up with endocrinology and primary care physician as scheduled and he was advised to let us know if he has any further questions or c oncerns. He voiced understanding. This note was generated with [employer] dictation software. It may contain incorrect words, spelling, and punctuation that were not noted in checking the note before signing.
[2024-11-16 15:56] LABS: Bedside Glucose 67 mg/dL (74-106)
[2024-11-16 15:56] LABS: Bedside Glucose 58 mg/dL (74-106)
[2024-11-16 15:56] LABS: Bedside Glucose 59 mg/dL (74-106)
[2024-11-16 15:56] LABS: Bedside Glucose 58 mg/dL (74-106)
[2024-11-16 15:56] LABS: Bedside Glucose 94 mg/dL (74-106)
[2024-11-22 09:25] VITALS: BP 157/95; PULSE 78; RESP 16; TEMP 37.7; BMI 48.2
--- NOTE | 2024-11-22 11:41 | PN.PCM_ITS ---
History of Present Illness Date of Service: 11/22/24 Chief Complaint: HBO for Diabetic Foot Ulcer with Osteomyelitis History of Wound: Mr. Ruelas is a very pleasant 39-year-old male with diabetes coming wound care center today for evaluation for HBO therapy. He started with a blister on his foot after moving about 1.5 months ago. 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 Hood, director of community services for partial ray amputation to the fourth metatarsal right foot. His operative cultures were positive for proteus, MRSE, MS-CoNS, and strep which he was treated with vanc/unasyn then discharged home on Linezolid and Augmentin (he was seen inpatient by ID). He developed a full-thickness wound post op. He then was admitted to [facility] for CHF and lung exacerbations. He was discharged and referred to the wound care center by his chuy meier doctor. Patient is a diabetic and has had blood sugars around 160 to 170 mg/dL. He is now seeing Dr. Jiang at the wound center for management of his right foot ulcer. He has history of foot ulcers on left foot/great toe, diabetic polyneuropathy, HTN, hyperlipidemia, GERD, Gastroparesis, obesity and CHF. With his most recent hospitalization at [facility], he had a cardiac echo with EF 55-60%. A CXRY that showed Borderline cardiomegaly with interstitial and alveolar haziness bilaterally, could represent mild pulmonary venous congestion. Progress of Wound: HBO progress: This is his 17th session of hyperbaric oxygen treatment. Tolerance: Hyperbaric oxygen therapy was administered as per the facility's protocol. 100% oxygen at 2 TOYIN for 90 minutes without air breaks. About 15 minutes to completion, hyperbaric oxygen treatment had to be terminated due to concern for hypoglycemia. Blood glucose level was at 58. Blood glucose level p rior to HBO was 148. He was monitored per facility protocol and his blood glucose levels subsequently came up to 115 prior to discharge from the facility. He was discharged in stable condition. Subjective Subjective Mr. Ruelas is a 3-year-old diabetic male presenting to wound care center today for follow-up evaluation of full-thickness wound to the left fourth ray status post fourth ray resection. Patient has completed his last week of HBO dives and he states his wound is now healed. Blood sugars well-controlled. Denies trauma. Denies constitutional symptoms. No other pedal complaints at this time. Objective Data Objective Data Vital Signs: Vital Signs Temp Pulse Resp BP O2 Del Method 99.8 F H 78 16 157/95 H Room Air 11/22/24 09:25 11/22/24 09:25 11/22/24 09:25 11/22/24 09:25 11/22/24 09:25 Oxygen Delivery Method Room Air Weight: 166.015 kg Body Mass Index (BMI) 48.2 Lab / Micro Data Micro: Microbiology 11/08/24 11:06 Wound Abcess - Right Foot Gram Stain - Final 11/08/24 11:06 Wound Abcess - Right Foot Wound Culture - Final Staphylococcus epidermidis 11/08/24 11:06 Wound Abcess - Right Foot Anaerobic Culture - Final No anaerobic bacteria isolated. Physical Exam Narrative Vascular: DP and PT pulses are palpable to the right lower extremity. CFT is brisk. No erythema to the right foot. Nonpitting edema right lower extremity. Neurological: Light touch intact. Protective station is diminished. Patient does respond to painful stimuli. Dermatological: Full-thickness wound at the level of the status post fourth ray amputation which is now healed. No erythema or sign of infection. Musculoskeletal: Muscle strength is 5 out of 5 in all quadrants to the right lower extremity. No pain on palpation of the full-thickness wound. No pain with calf pressure. Debridement Note Debridement Note Post-Debridement Measurements and Additional Note: Post-Debridement Measurements/Treatment - Nurse 1 - General Ulcer Assessment Start: 11/02/24 10:11 Freq: Status: Active Protocol: CASSIE Activity Type Activity Date Activity User E-sign Co-sign Detail Recorded Client Recorded Date Recorded By Document 11/08/24 09:36 KW [id number] 11/08/24 09:37 KW Document 11/15/24 11:03 [id number] 11/15/24 11:04 Document 11/22/24 09:25 KW [id number] 11/22/24 09:31 KW 11/08/24 11/15/24 11/22/24 09:36 11:03 09:25 - Today's Visit Information Type of service Follow-up Visit Follow-up Visit Follow-up Visit (Physician/EASEMENT WORKER (Physician/EASEMENT WORKER (Physician/EASEMENT WORKER ) ) ) Arrival Mode Ambulatory Ambulatory Ambulatory Transfer Assistance None Patient Identification Verified (Name & Yes Yes Yes ) Patient Requires Transmission-Based No Precautions Height and Weight Body Mass Index (BMI) 48.2 48.2 48.2 BMI Classification Obese Obese Obese Vital Signs Temperature (97.8 F-99.1 F) 99.8 F H Temperature Source Temporal Pulse Rate (60-100) 86 78 Pulse Location Monitor Monitor Respiratory Rate (12-18) 16 16 Respiratory rate source Observation Observation Oxygen Delivery Method Room Air Room Air Blood Pressure (90/60-120/80) 152/90 H 157/95 H Blood Pressure Mean (mm Hg) 110 115 Source Monitor Monitor Position Semi-Fowlers Semi-Fowlers Blood Pressure Location Left Arm Left Arm Comment vitals taken in HBO History Since Last Visit- (Skip if this is Patient's initial visit) Have you changed medications since your No No No last visit? Any new allergies or adverse reactions No No No Had a fall/change in ADL's that may No No No increase risk of falls Signs or symptoms of abuse and/or No No No neglect since last visit Have you been in the hospital since your No Yes No last visit? Has dressing in place as prescribed Yes Yes Yes Has compression in place as prescribed N/A Yes Has offloadiing in place as prescribed N/A Yes Experienced any changes in pain level or No No management Left Footwear Regular Shoe Regular Shoe Right Footwear Regular Shoe Regular Shoe Pain Scale: 0-10 Numeric Is Patient Pain Free? Yes Yes Yes WC - Nurse 1 - General Ulcer Measurement Start: 11/02/24 10:11 Freq: Status: Active Protocol: Activity Type Activity Date Activity User E-sign Co-sign Detail Recorded Client Recorded Date Recorded By Document 11/08/24 09:36 KW [id number] 11/08/24 09:37 KW Document 11/15/24 11:03 [id number] 11/15/24 11:04 Document 11/22/24 09:25 KW [id number] 11/22/24 09:31 KW 11/08/24 11/15/24 11/22/24 09:36 11:03 09:25 Wound Center Nurse 1 #5 RT 4TH TOE AMP SITE -Combined with other wound No -Current Size (cm) - Length 0.2 0.1 0.1 -Current Size (cm) - Width 0.1 0.1 0.1 -Current Size (cm) - Depth 0.1 0.1 0 -Total Square Cm 0.02 0.01 0.01 -Date of Last Picture (Recall this 11/15/24 field) -Photo Taken Yes -Epithelialization Large 67-100% -Tunneling No -Undermining/Tunneling No -Circular Undermining No -Exudate Amt None Present None Present None Present -Wound Margin Distinct, Distinct, Outline Outline Attached Attached -Granulation Amt Large (67-100%) -Granulation Quality [place] -Texture (Bev-wound Skin Appearance) Assessed Assessed -Moisture (Bev-wound Skin Appearance) Maceration Assessed -Color (Bev-wound Skin Appearance) Assessed Assessed -Temperature (Bev-wound Skin No Abnormality No Abnormality Appearance) (Pt Warm) (Pt Warm) -Tenderness on Palpation (Bev-wound No No Skin Appearance) -Ulcer Cleansing Rinsed/ Soap and Water Rinsed/ Irrigated with Irrigated with Saline Saline -Foul Odor after Cleansing No No -Anesthetic Used 5% Lidocaine 5% Lidocaine Gel Gel -Wound Comment(s) area looks healed but there is an area that looks like dried drainage WC - Nurse 2 - General Ulcer CM Notes Start: 11/02/24 10:11 Freq: Status: Active Protocol: Activity Type Activity Date Activity User E-sign Co-sign Detail Recorded Client Recorded Date Recorded By Document 11/08/24 09:50 [id number] 11/08/24 09:57 Document 11/15/24 11:11 [id number] 11/15/24 11:13 Document 11/22/24 09:50 [id number] 11/22/24 09:51 11/08/24 11/15/24 11/22/24 09:50 11:11 09:50 Wound Center Nurse 2 #5 RT 4TH TOE AMP SITE -Time 09:55 -Correct Patient Yes Yes Yes -Correct Side, Site, Position Yes No No -Correct Procedure Yes No No -Procedure Performed Yes No No -Type of Procedure Debridement -Clinical Debridement Subcutaneous -Tissue Removed Subcutaneous -Post Debridement (cm) - Length 1 0.1 0 -Post Debridement (cm) - Width 0.2 0.1 0 -Post Debridement (cm) - Depth 0.2 0.1 0 -Total Square (Post) (cm) 0.2 0.01 0 -Area of Debridement (cm) - Length 1 0.1 0 -Area of Debridement (cm) - Width 0.2 0.1 0 -Total Square (Area) (cm) 0.2 0.01 0 -Tunneling No -Undermining/Tunneling No -Circular Undermining No -Wound/Ulcer Outcome Not Healed Healed- Epithelialized -Ulcer Cleansing Rinsed/ Irrigated with Saline -Foul Odor after Cleansing No -Bioengineered Tissue Yes -Type of Bioengineered Tissue Epifix -Expiration Date 01/02/29 -Product Lot Number [id number] -Percent Used 100 -Lot number of Saline Used [id number] -Bleeding Controlled with Pressure -Treatment Response Procedure Tolerated Well -Offloading Yes -Type of Offloading Surgical Shoe -Debridement - Subq, 1st 20sq cm No No -Apply Skin Sub - 1st 25 sq cm - Feet 1 -Epifix Application 1-4 (per sq cm) 4 Pain Scale: 0-10 Numeric Is Patient Pain Free? Yes Yes Yes - Nurse 3 - General Ulcer D/C NN Start: 11/02/24 10:11 Freq: Status: Active Protocol: Activity Type Activity Date Activity User E-sign Co-sign Detail Recorded Client Recorded Date Recorded By Document 11/08/24 10:09 NC [id number] 11/08/24 10:11 NC Document 11/15/24 11:13 [id number] 11/15/24 11:14 Document 11/22/24 09:51 [id number] 11/22/24 09:51 11/08/24 11/15/24 11/22/24 10:09 11:13 09:51 Wound Care Center Nurse 3 #5 RT 4TH TOE AMP SITE -Ulcer Cleansing Rinsed/ Irrigated with Saline -Foul Odor after Cleansing No -Primary Dressing Covered/Secured with Dry Gauze,Dry Dry Gauze Gauze & Roll Gauze,Secured with Tape RLE -Compression Wrap [place] Wrap -Stockings No Pain Scale: 0-10 Numeric Is Patient Pain Free? 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 All findings were discussed with the patient. All questions were answered to the patient's satisfaction. The patient's full-thickness wound to the right foot is now healed. He will continue to check his feet twice per day and continue to monitor his blood sugar between 100 to 150 mg/dL. Patient will follow-up in private office for diabetic shoes and inserts. Patient is very grateful for his care and will be discharged from the wound care center today. 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
== END 2024-11-30 14:36 | disposition home or self-care (01) ==
LOC: WC 09:30
PROVIDERS: PCP Nurse Practitioner Family; Referring Provider Nurse Practitioner Family; Visit Provider Podiatrist Foot & Ankle Surgery
DX: E11.621 Type 2 diabetes mellitus with foot ulcer (principal); L97.515 Non-pressure chronic ulcer of other part of right foot with muscle involvement without evidence of necrosis; M86.8X7 Other osteomyelitis, ankle and foot; I11.0 Hypertensive heart disease with heart failure; I50.9 Heart failure, unspecified; E11.69 Type 2 diabetes mellitus with other specified complication; E11.43 Type 2 diabetes mellitus with diabetic autonomic (poly)neuropathy; E11.42 Type 2 diabetes mellitus with diabetic polyneuropathy; Z79.4 Long term (current) use of insulin; K31.84 Gastroparesis; S90.821S Blister (nonthermal), right foot, sequela; X58.XXXS Exposure to other specified factors, sequela; E78.5 Hyperlipidemia, unspecified; R60.0 Localized edema; M79.89 Other specified soft tissue disorders; E66.9 Obesity, unspecified; Z79.84 Long term (current) use of oral hypoglycemic drugs; Z79.899 Other long term (current) drug therapy
CPT/HCPCS: 15275; 82962; 87070; 87075; 87077; 87186; 87205; 99183; 99213; Q4186; G0277; G0463

== ENCOUNTER → 2024-11-28 | Outpatient (CLI) | payer OTHER, SELFPAY ==
[2024-11-28 11:47] LABS: Hemoglobin A1c 8.1 % (<=5.6)
[2024-11-28 12:15] LABS: Cholesterol 210 mg/dL (<=200); High Density Lipoprotein 28 mg/dL; Low Density Lipoprotein Calc. 90 mg/dL; Triglycerides 459 mg/dL; Very Low Density Lipoprotein 92 mg/dL (5-40); cholesterol:hdl ratio screen 7.47
[2024-11-28 12:39] LABS: ALB/GLOB Ratio 1.1 RATIO (0.9-2.4); AST(SGOT) 20 U/L (<=37); Alanine Aminotransfer ALT/SGPT 14 U/L (<=46); Albumin, Serum 3.4 g/dL (3.5-5.0); Alkaline Phosphatase 106 U/L (40-129); Anion Gap 10 (5-15); BUN 20 mg/dL (4-19); BUN/Creat Ratio 18.3 RATIO (10-20); Calcium,Total 9.1 mg/dL (7.6-11.0); Carbon Dioxide 24.6 mmol/L (21.0-32.0); Chloride 102 mmol/L (98-108); Creatinine, Serum 1.09 mg/dL (0.70-1.20); EST Glomerular Filtration Rate 88 (>60); Glucose 235 mg/dL (70-99); Potassium 4.9 mmol/L (3.3-5.1); Protein, Total 6.4 g/dL (5.9-8.4); Sodium Level 137 mmol/L (133-145); Total Bilirubin 0.33 mg/dL (0.00-1.30)
== END | disposition home or self-care (01) ==
LOC: LAB 09:54
PROVIDERS: PCP Nurse Practitioner Family; Referring Provider Internal Medicine Cardiovascular Disease; Visit Provider Internal Medicine Cardiovascular Disease
DX: E11.621 Type 2 diabetes mellitus with foot ulcer (principal); L97.509 Non-pressure chronic ulcer of other part of unspecified foot with unspecified severity; Z79.4 Long term (current) use of insulin; E78.5 Hyperlipidemia, unspecified; G47.33 Obstructive sleep apnea (adult) (pediatric)
CPT/HCPCS: 36415; 80053; 80061; 83036

== ENCOUNTER → 2025-02-13 | Outpatient (CLI) | payer MEDICARE, SELFPAY ==
[2025-02-13 13:33] LABS: AST(SGOT) 24 U/L (<=37); Alanine Aminotransfer ALT/SGPT 22 U/L (<=46); Albumin, Serum 3.7 g/dL (3.5-5.0); Alkaline Phosphatase 110 U/L (40-129); Anion Gap 16 (5-15); BUN 26 mg/dL (4-19); BUN/Creat Ratio 20.8 RATIO (10-20); Calcium,Total 9.2 mg/dL (7.6-11.0); Carbon Dioxide 19.4 mmol/L (21.0-32.0); Chloride 99 mmol/L (98-108); Cholesterol 147 mg/dL (<=200); Globulin 3.0 g/dL (2.2-4.2); Glucose 345 mg/dL (70-99); Low Density Lipoprotein Calc. 70 mg/dL; Potassium 4.8 mmol/L (3.3-5.1); Triglycerides 234 mg/dL; Very Low Density Lipoprotein 47 mg/dL (5-40); cholesterol:hdl ratio screen 4.85
== END | disposition home or self-care (01) ==
LOC: LAB 11:05
PROVIDERS: PCP Nurse Practitioner Family; Referring Provider Nurse Practitioner Family; Visit Provider Nurse Practitioner Family
DX: E11.65 Type 2 diabetes mellitus with hyperglycemia (principal)
CPT/HCPCS: 36415; 80053; 80061; 83036; 84439; 84443

== ENCOUNTER → 2025-04-17 | Outpatient (CLI) | payer MEDICARE, SELFPAY ==
[2025-04-17 16:03] LABS: AST(SGOT) 23 U/L (<=37); Alanine Aminotransfer ALT/SGPT 23 U/L (<=46); Albumin, Serum 3.9 g/dL (3.5-5.0); Alkaline Phosphatase 104 U/L (40-129); Anion Gap 11 (5-15); BUN 26 mg/dL (4-19); BUN/Creat Ratio 20.1 RATIO (10-20); Calcium,Total 9.2 mg/dL (7.6-11.0); Carbon Dioxide 24.8 mmol/L (21.0-32.0); Chloride 98 mmol/L (98-108); Globulin 3.1 g/dL (2.2-4.2); Glucose 315 mg/dL (70-99); Potassium 5.3 mmol/L (3.3-5.1)
--- NOTE | 2025-04-17 18:46 | CT_ITS ---
PROCEDURE: ABDOMEN/PELVIS WITHOUT CONT 04/17/2025 REASON FOR EXAM: BENIGN NEOPLASM OF UNSPECIFIED ADRENAL GLAND Testicular/groin pain. TECHNIQUE: Procedure Code: CTABDPEL Modality: CT Procedure: ABDOMEN/PELVIS WITHOUT CONT Noncontrast technique limits evaluation of the abdominal and pelvic viscera. Coronal and Sagittal reconstruction series were provided. One or more dose reduction techniques were used (e.g., Automated exposure control, adjustment of the mA and/or kV according to patient size, use of iterative reconstruction technique). RADIATION DOSE SUMMARY: CTDlvol: 14.9 mGy DLP: 1487.8 mGycm COMPARISON: None FINDINGS: Lung bases: Mild increased linear markings at the right lung base suggestive of either linear atelectasis and/or scarring. Coronary artery calcification. Liver: Normal size. No obvious mass. Gallbladder: No evidence of gallstones. Spleen: Normal size. Pancreas: Diffuse fatty atrophy. Adrenals: Left adrenal nodule consistent with an adenoma. This measures 19 mm. Kidneys: No urolithiasis. No hydronephrosis. Bladder: The bladder is not completely full. Mild degree of diffuse bladder wall thickening. Reproductive Organs: Calcification of the vas deferens. This is seen in patients with diabetes. Central prostatic calcifications. Bowel: Colonic diverticulosis without diverticulitis. Appendix: The appendix is not identified. There is no inflammatory process identified in the right lower quadrant to suggest appendicitis. Lymph nodes: Unremarkable. Vasculature: Mild diffuse atherosclerotic calcifications are noted. Peritoneum / Retroperitoneum: No retroperitoneal lymph nodes. Bones: Degenerative changes of the spine. Straightening of the normal lumbar lordosis. CT/Abdomen/Pelvis without Cont IMPRESSION: Findings suggestive of a 1.9 cm left adrenal adenoma. Mild degree of diffuse bladder wall thickening. Calcification of the vas deferens. Reading Location: [place] [id number]
== END | disposition home or self-care (01) ==
PROVIDERS: PCP Family Medicine; Referring Provider Nurse Practitioner Family; Visit Provider Nurse Practitioner Family
DX: D35.02 Benign neoplasm of left adrenal gland (principal); E10.42 Type 1 diabetes mellitus with diabetic polyneuropathy
CPT/HCPCS: 36415; 74176; 80053; 83036; 84439; 84443

== ENCOUNTER → 2025-05-25 | Outpatient (CLI) | payer MEDICARE, SELFPAY ==
--- NOTE | 2025-05-25 11:19 | RAD_ITS ---
PROCEDURE: LUMBAR SPINE 2 OR 3 VIEWS 05/25/2025 REASON FOR EXAM: LUMBAR RADICULOPATHY Moderate spondylosis. TECHNIQUE: Procedure Code: RADSPLL Modality: DX Procedure: LUMBAR SPINE 2 OR 3 VIEWS COMPARISON: Lumbar spine study dated 05/10/2025 FINDINGS: Vertebrae: The sacrum is intact without evidence of fracture. There are 5 lumbar-type vertebral bodies below the last set of paired ribs. The vertebral body heights are within normal limits. There is no spondylolysis. Moderate spondylosis is noted. Discs: There appears to be mild degenerative disc disease involving the lumbar discs. Alignment: There is approximately 2 mm of retrolisthesis of L1 in relationship to L2, 1-2 mm of retrolisthesis of L3 in relationship to L4, 1 mm of retrolisthesis of L 3 in relationship to L4 and 3 mm of retrolisthesis of L5 in relationship to S1. There is no instability on the flexion or extension views. RAD/Lumbar Spine 2 or 3 Views IMPRESSION: Moderate spondylosis of the lumbar spine. Mild degenerative disc disease involving the lumbar discs. Alignment of the lumbar spine as described above. It may be of value to have an MRI of the lumbar spine, if clinically indicated, for further evaluation of the disc spaces, nerve roots, and soft tissue structures in this patient who has abnormal plain film f indings with low back pain. Reading Location: [id number]
== END | disposition home or self-care (01) ==
LOC: RAD 10:51
PROVIDERS: PCP Family Medicine; Referring Provider Anesthesiology; Visit Provider Anesthesiology
DX: M54.16 Radiculopathy, lumbar region (principal)
CPT/HCPCS: 72100